=== PATIENT | female | born 1975 | race Caucasian/White ===

== ENCOUNTER 2023-06-15 10:46 | Outpatient (OUT) | payer OTHER, SELFPAY ==
--- NOTE | 2023-06-15 10:48 | VEIN_ITS ---
Patient: EB MÉNDEZ Exam Date: 06/15/2023 : 1975 Gender:F Ordering : DR BECKY TORRES M.D. Admission #: [id number] Family : Order #: [id number] CLICK HERE TO VIEW EXAM RADIOLOGY REPORT PROCEDURE: VC EXT VENOUS REFLUX HALEY LMTD COMPARISON: None. INDICATIONS: I83.813 Painful varicose veins of bilat lower extremities TECHNIQUE: Duplex imaging of the lower extremity to assess the deep and superficial venous system for the presence of deep or superficial venous incompetence and to document the location and severity of disease. The study includes evaluation of the great saphenous vein (GSV), anterior accessory saphenous vein (AASV) and small saphenous vein (SSV). Patient scanned in reverse Trendelenburg and standing. FINDINGS: RIGHT LOWER EXTREMITY: Saphenofemoral Junction Reflux: Yes 10.5mm 1.3 sec GSV: Diam (mm) Reflux/ Time (sec) Proximal Thigh 8.2 Yes 0.9 Mid Thigh 5.8 Yes 1.0 Distal Thigh 4.8 Yes 1.7 Prox Calf 4.6 Yes 1.3 Mid Calf 4.9 Yes 1.7 Saphenopopliteal Junction Reflux: 2.5mm Yes 0.3 SSV: Proximal Calf 3.3 Yes 0.3 Mid Calf 3.7 Yes 4.8 AASV: Not present Proximal Thigh Mid Thigh Distal Thigh Thrombi: No acute or chronic thrombus. Compressibility: Normal. Flow: Severe deep venous reflux. Preforator: Distal medial lower leg 5.4 mm with 3.7s reflux. Prox medial calf 5.0 mm with 1.3s reflux. Tech Note: Incompetent varicose vein mid medial lower leg measures 4.4 mm with 0.7s reflux. Mid medial thigh varicosity measures 4.1 mm with 3.3s reflux. Distal lateral thigh varicose vein measures 3.2 mm with 4.8s reflux. LEFT LOWER EXTREMITY: Saphenofemoral Junction Reflux: Yes 15.8 mm 4.2 sec GSV: Diam (mm) Reflux/Time (sec) Proximal Thigh 7.9 Yes 2.7 Mid Thigh 3.5 N/A Distal Thigh 2.7 N/A Prox Calf 2.5 Yes 1.9 Mid Calf 4.0 Yes 2.5 Saphenopopliteal Junction Relux: 3.8 mm Yes 0.3 SSV: Proximal Calf 4.9 Yes 0.3 Mid Calf 4.4 No AASV: Proximal Thigh 7.6 Yes 3.3 Mid Thigh 7.7 Yes 4.2 Distal Thigh Thrombi: Chronic thrombus in portions of previously treated GSV. Compressibility: Non compression of segments of GSV. Flow: Severe deep venous reflux. Communications Department Head: Distal medial lower leg 3.4mm with 1.1s reflux. Prox medial calf 3.5 mm with 1.7s reflux. Tech Note: AASV becomes tortuous approximately 5.3 cm from SFJ. Thigh extention of SSV. Mid medial thigh varicose vein measures 6.2 mm with 2.2s reflux. Varicose vein mid medial lower leg 3.8 mm with 1.9s reflux. Proximal anterior thigh varicose vein off AASV measures 5.1 mm with 0.8s reflux. CONCLUSION: 1. Abnormally dilated and incompetent right great saphenous vein, left great saphenous vein, left anterior accessory saphenous vein, multiple branch saphenous varicosities bilaterally. Dictated by: Kyle Dick M.D. on 06/15/2023 at 11:49 Approved by: Kyle Dick M.D. on 06/15/2023 at 12:50
--- NOTE | 2023-06-15 10:48 | VEIN_ITS ---
Patient: EB MÉNDEZ Exam Date: 06/15/2023 : 1975 Gender:F Ordering : DR BECKY TORRES M.D. Admission #: [id number] Family : Order #: [id number] CLICK HERE TO VIEW EXAM RADIOLOGY REPORT PROCEDURE: [facility] EST COMPREHENSIVE VEIN CENTER - OFFICE VISIT INITIAL COMPARISON: None. PROGRESS NOTES: [age] year old female who presents with a new 1 year history of redevelopment of dilated bulging veins, leg swelling, and edema. The patient's leg symptoms are symmetric. There has been a progression of symptoms over the past 6 months. This increases with prolonged leg dependency. The patient describes an improvement with rest, elevation, exercise, support stockings , and medication. The patient denies any signs and symptoms to suggest arterial ischemia. The patient describes a family history varicose veins on maternal side. The patient has drinking and smoking history of no alcohol consumption or tobacco use. Patient has a past medical history significant for hypothyroidism and prior superficial vein treatment. The patient denies a history of deep venous thrombus or pulmonary embolus. See separate history and physical for medication list. Prior treatment for varicose or spider veins. Current use of compression stockings. After review of nurse notes, history and physical exam I discussed at length the pathophysiology of venous hypertension and possible treatments, therapies and strategies available. We discussed at length the importance of elevating the lower extremities above the level of the heart, increased physical activity and compression stocking use. Ultrasound venous reflux study performed today was discussed at length with the patient. The report demonstrates abnormally dilated and incompetent right great saphenous vein, segments of left great saphenous vein with occlusion of the vein in the mid and distal thigh, dilated incompetent left anterior accessory saphenous vein, and multiple incompetent branch saphenous varicosities bilaterally. PHYSICAL EXAM: The right leg demonstrates several varicosities, a few scattered spider veins, no ulceration, mild edema, no skin discoloration. The left leg demonstrates several varicosities, a few scattered spider veins, no ulceration, mild edema, no skin discoloration. Both thighs, legs and feet were symmetrically warm to the touch. Good posterior tibial and dorsalis pedis pulses were present bilaterally. VEIN/VC Facility EST Comprehensive IMPRESSION: 1. Bilateral lower extremity venous insufficiency 2. Bilateral lower extremity varicose veins 3. Mild bilateral lower extremity subcutaneous edema 4. No flow significant arterial disease 5. CEAP: C3, EC, , MO PLAN: 1. Continued use of compression stockings 2. Elevated legs and increased physical activity symptomatic relief 3. Endovenous laser ablation of right great saphenous vein, proximal left great saphenous vein (with microfoam chemical ablation of distal segments), and left anterior accessory saphenous vein. 4. Microfoam chemical ablation of distal aspect of left great saphenous vein and bilateral abnormally dilated and incompetent branch saphenous varicosities. 5. Sclerotherapy as needed. Nurse notes, history and physical were reviewed and confirmed, see attached forms. The nurse was present throughout the physical exam and consultation Dictated by: Kyle Dick M.D. on 06/15/2023 at 12:50 Approved by: Kyle Dick M.D. on 06/15/2023 at 12:58
== END 2023-06-15 10:47 | disposition home or self-care (01) ==
LOC: VC 10:46
PROVIDERS: PCP Radiology Diagnostic Radiology; Visit Provider Radiology Diagnostic Radiology
DX: I83.813 Varicose veins of bilateral lower extremities with pain (principal)
CPT/HCPCS: 93970; G0463

== ENCOUNTER 2023-07-21 10:38 | Outpatient (OUT) | payer OTHER, SELFPAY ==
--- NOTE | 2023-07-21 10:39 | VEIN_ITS ---
[address] [address] Patient Name: EB MÉNDEZ MRN: [id number] date: 1975 Sex: F Assigned Patient Location: Current Patient Location: Accession/Order Number: [id number] Exam Date: 07/21/2023 10:40 Report Date: 07/21/2023 11:53 At the request of: BECKY TORRES Procedure: VC Endovenous Ablation 1VeinRT EXAMINATION: VC Endovenous Ablation 1VeinRT HISTORY: I83.813 Painful varicose veins of bilat lower extremities COMPARISON: No relevant comparison available. TECHNIQUE: The risks and benefits of the procedure had been previously discussed, and were rediscussed at length. Informed written consent was obtained. Christine Austin and Kade White assisted. Time out procedure was performed. The right lower extremity was prepared and draped in the usual sterile fashion to allow knee flexion in the sterile field. Duplex ultrasound probe was draped in a sterile cover, sterile transmission gel was used. Venous mapping was performed with the areas of dilation and large tributaries marked. The total length was 40 cm from the entry mid calf to 3 cm below the saphenofemoral junction. The diameter of the greater saphenous vein ranged from 4-8 mm. A 30 gauge needle and 1% buffered lidocaine was used to anesthetize the entry site. A 4 mm incision was made with a scalpel and the saphenous vein was entered percutaneously under direct ultrasound guidance with a micropuncture set, a single stick was successful in gaining access. A micro-guide wire was inserted and the needle removed. A micro-set including a dilator was inserted over the microwire and the needle and dilator were removed. A 0.018 guide wire was inserted through the micro-set and threaded through the saphenous vein to the saphenofemoral junction. The dilator was removed and an introducer sheath was inserted over the wire until the end of the sheath entered the saphenofemoral junction. The dilator and wire were removed and the 600 micron fiber was introduced and placed and positioned so that it extended beyond the sheath and was 3 cm peripheral to the saphenofemoral femoral junction. Final position of the fiber was determined by ultrasound guidance and duplex imaging. Tumescent anesthetic was delivered by ultrasound guidance. 250 cc of fluid was delivered along the entire course of the saphenous vein. The solution consisted of 1000 cc of normal saline with 40 mL of 1% lidocaine and 20 mL of sodium bicarbonate. A final positioning check was made. The energy source was turned on by means of the foot pedal and the fiber and sheath were withdrawn. The total number of Joules delivered was 1991. The laser was active for 249seconds under continuous pulse, average laser use of 8 J. Laser start time 11:27 AM 07/21/23. Laser stop time 11:32 AM 07/21/23. A duplex ultrasound revealed compressibility and flow at the saphenofemoral junction immediately after the procedure. Hemostasis at the access site was achieved. The skin incision of the saphenous vein was closed with a 4 x 4. A compression stocking was applied. Postop instructions were given. A follow up appointment was recommended and scheduled. The patient tolerated the procedure well and was discharged in good condition . VEIN/VC Endovenous Ablation 1VeinRT IMPRESSION: Technically successful endovenous laser ablation of the right great saphenous vein Electronically authenticated by: BECKY TORRES Date: 07/21/2023 11:53
[2023-07-21] MEDS: LIDOCAINE HCL 1% 100 MG/10 ML MDV INJ (11:08)
[2023-07-21] MEDS: 0.9 % SODIUM CHLORIDE 500 ML, LIDOCAINE HCL 20 ML, SODIUM BICARBONATE 10 MEQ INJ (11:09)
== END 2023-07-21 10:39 | disposition home or self-care (01) ==
LOC: VC 10:38
PROVIDERS: PCP Radiology Diagnostic Radiology; Visit Provider Radiology Diagnostic Radiology
DX: I83.813 Varicose veins of bilateral lower extremities with pain (principal)
CPT/HCPCS: 36478

== ENCOUNTER 2023-07-27 14:33 | Outpatient (OUT) | payer OTHER, SELFPAY ==
--- NOTE | 2023-07-27 14:34 | VEIN_ITS ---
Patient: BE MÉNDEZ Exam Date: 07/27/2023 : 1975 Gender:F Ordering : DR JOHN DIALLO M.D. Admission #: [id number] Family : Order #: [id number] CLICK HERE TO VIEW EXAM RADIOLOGY REPORT PROCEDURE: VC FACILITY EST LMTD VEIN CENTER - OFFICE VISIT FOLLOW UP COMPARISON: None. PROGRESS NOTES: The patient reports moderate pain following endovenous laser ablation of the right great saphenous vein. The patient has worn his compression stockings . She does report significant pain of the right leg following the procedure. The patient has followed our recommendations to walk 20-30 minutes once or twice per day since the procedure. Physical exam demonstrates 5 areas of bruising in the medial right leg related to tumescent injection. Mild warmth is demonstrated in the anterior and medial right thigh consistent with thrombophlebitis likely related to occlusion of the treated great saphenous vein and near occlusion of associated varicose vein which originates at the saphenofemoral junction. Review of the ultrasound performed the same day demonstrates occlusive thrombus extending throughout the treated right great saphenous vein with heat induced thrombus 0.8 cm in the saphenofemoral junction. Nonocclusive thrombus identified in associated varicose vein. I did discuss with the patient that she had postprocedure thrombophlebitis and recommended Advil or Tylenol to control the inflammatory process. The patient expressed a desire to proceed with treatment of the left great saphenous vein with intravenous laser ablation. VEIN/VC Facility EST LMTD IMPRESSION: 1. Successful ablation of the treated right great saphenous vein as well as an associated varicose vein. 2. Postprocedural thrombophlebitis. PLAN: Advil 400 milligrams 3 times a day for 5-7 days Intravenous laser ablation left great saphenous vein Nurse notes, history and physical were reviewed and confirmed, see attached forms. The nurse was present throughout the physical exam and consultation Dictated by: John Diallo MD on 07/27/2023 at 15:34 Approved by: John Diallo MD on 07/27/2023 at 15:47
--- NOTE | 2023-07-27 14:34 | VEIN_ITS ---
Patient: EB MÉNDEZ Exam Date: 07/27/2023 : 1975 Gender:F Ordering : DR JOHN DIALLO M.D. Admission #: [id number] Family : Order #: [id number] CLICK HERE TO VIEW EXAM RADIOLOGY REPORT PROCEDURE: VC EXT VENOUS RT LMTD COMPARISON: None. INDICATIONS: Phlebitis and thrombophlebitis of Rt lower ext I80.01 TECHNIQUE: Lower extremity phelps scale and Duplex Doppler evaluation of the deep venous system from the inguinal ligament through the calf veins. FINDINGS: REGION: Right lower extremity. THROMBI: Negative for DVT. Echogenic thrombus visualized 0.8 cm from the saphenofemoral junction and is seen throughout the great saphenous vein to proximal lower leg at point of insertion COMPRESSIBILITY: Non-compressible segments corresponding to thrombus FLOW: Areas of no flow corresponding to thrombus OTHER: Varicose vein, seen in area of pain, contains thrombus corresponding with treatment. CONCLUSION: Post ablation occlusion of the right great saphenous vein with heat induced thrombus 0.8 cm from the saphenofemoral junction Nonocclusive thrombus identified in associated varicose vein arising off the saphenofemoral junction Dictated by: John Diallo MD on 07/27/2023 at 15:06 Approved by: John Diallo MD on 07/27/2023 at 15:09
== END 2023-07-27 14:34 | disposition home or self-care (01) ==
LOC: VC 14:33
PROVIDERS: PCP Radiology Diagnostic Radiology; Visit Provider Radiology Diagnostic Radiology
DX: I80.01 Phlebitis and thrombophlebitis of superficial vessels of right lower extremity (principal)
CPT/HCPCS: 93971; G0463

== ENCOUNTER 2023-08-04 10:56 | Outpatient (OUT) | payer OTHER, SELFPAY ==
--- NOTE | 2023-08-04 10:57 | VEIN_ITS ---
[address] [address] Patient Name: EB MÉNDEZ MRN: [id number] date: 1975 Sex: F Assigned Patient Location: Current Patient Location: Accession/Order Number: [id number] Exam Date: 08/04/2023 11:00 Report Date: 08/04/2023 12:32 At the request of: BECKY TORRES Procedure: VC Endovenous Ablation 1VeinLT EXAMINATION: VC Endovenous Ablation 1VeinLT HISTORY: Pain due to varicose veins of bilateral legs I83.813 The risks and benefits of the procedure had been previously discussed, and were rediscussed at length. Informed written consent was obtained. Claire Navas RN and Soha Austin RDMS, RVT assisted. Time out procedure was performed. The left lower extremity was prepared and draped in the usual sterile fashion to allow knee flexion in the sterile field. Duplex ultrasound probe was draped in a sterile cover, sterile transmission gel was used. Venous mapping was performed with the areas of dilation and large tributaries marked. The total length was 8 cm from the entry proximal thigh to 3 cm below the Saphenofemoral junction. The diameter of the left great saphenous vein ranged from 7.9 mm. A 30 gauge needle and 1% buffered lidocaine was used to anesthetize the entry site. A 4 mm incision was made with a scalpel and the saphenous vein was entered percutaneously under direct ultrasound guidance with a micropuncture set, a single stick was successful in gaining access. A micro-guide wire was inserted and the needle removed. A micro-set including a dilator was inserted over the microwire and the needle and dilator were removed. A guide wire was inserted through the micro-set and guided through the saphenous vein to the saphenofemoral junction. The dilator was removed and an introducer sheath was inserted over the wire until the end of the sheath entered the saphenofemoral junction. The dilator and wire were removed and the 600 micron fiber was introduced and placed and positioned so that it extended beyond the sheath and was 3 cm distal to the saphenofemoral or saphenopopliteal junction. Final position of the fiber was determined by ultrasound guidance and duplex imaging. Tumescent anesthetic was delivered by ultrasound guidance. 50 cc of fluid was delivered along the entire course of the saphenous vein. The solution consisted of 1000 cc of normal saline with 40 mL of 1% lidocaine and 20 mL of sodium bicarbonate. A final positioning check was made. The energy source was turned on by means of the foot pedal and the fiber and sheath were withdrawn. The total number of Joules delivered was 471. The laser was active for 59 seconds under continuous pulse, average laser use of 8 J. Laser start time 11:46 AM, 08/04/2023. Laser stop time 11:47 AM, 08/04/2023. A duplex ultrasound revealed compressibility and flow at the saphenofemoral junction immediately after the procedure. Hemostasis at the access site was achieved. The skin incision of the saphenous vein was closed with a 4 x 4. A compression stocking was applied. Postop instructions were given. A follow up appointment was recommended and scheduled. The patient tolerated the procedure well. Electronically authenticated by: HANNAH HOSKINS Date: 08/04/2023 12:32
[2023-08-04] MEDS: LIDOCAINE HCL 1% 100 MG/10 ML MDV INJ (11:27)
[2023-08-04] MEDS: 0.9 % SODIUM CHLORIDE 500 ML, LIDOCAINE HCL 20 ML, SODIUM BICARBONATE 10 MEQ INJ (11:30)
== END 2023-08-04 10:57 | disposition home or self-care (01) ==
LOC: VC 10:56
PROVIDERS: PCP Radiology Diagnostic Radiology; Visit Provider Radiology Diagnostic Radiology
DX: I83.813 Varicose veins of bilateral lower extremities with pain (principal)
CPT/HCPCS: 36478

== ENCOUNTER 2023-08-11 11:31 | Outpatient (OUT) | payer OTHER, SELFPAY ==
--- NOTE | 2023-08-11 11:33 | VEIN_ITS ---
Patient Name: EB MÉNDEZ MR#: [id number] : 1975 Exam Date: 08/11/2023 Ordering Doctor: DR BECKY TORRES M.D. RADIOLOGY REPORT PROCEDURE: [facility] EST L[facility] VEIN CENTER - OFFICE VISIT FOLLOW UP [facility] PROGRESS NOTES: The patient reports improvement in leg symptoms. There has been interval reduction in varicosities. The patient has followed our recommendations to walk 20-30 minutes once or twice per day since the procedure. Physical exam demonstrates decrease in varicosities of the leg. Persistent varicosities are identified along the legs. Review of the ultrasound performed the same day demonstrates occlusive thrombus extending throughout the treated vein(s), see separate report, consistent with a successful ablation. No thrombus extending into or beyond the saphenofemoral junction. The patient expressed a desire to proceed with treatment of lower extremity superficial varicosities. The patient was informed that treatment was a process and would require several procedures/sessions. [facility]: 1. Successful ablation of the left great saphenous vein(s). 2. Persistent incompetent varicose veins and lower extremity symptoms. PLAN: Endovenous laser ablation of left anterior accessory saphenous vein. Nurse notes, history and physical were reviewed and confirmed, see attached forms. The nurse was present throughout the physical exam and consultation Dictated by: Kyle Dick M.D. on 08/11/2023 at 13:03 Approved by: Kyle Dick M.D. on 08/11/2023 at 13:22
--- NOTE | 2023-08-11 11:33 | VEIN_ITS ---
Patient Name: EB MÉNDEZ MR#: [id number] : 1975 Exam Date: 08/11/2023 Ordering Doctor: DR BECKY TORRES M.D. RADIOLOGY REPORT PROCEDURE: VC EXT VENOUS LT LIMITED COMPARISON: None. INDICATIONS: Phlebitis of superficial vein of lt lower extremity I80.02 TECHNIQUE: Lower extremity phelps scale and Duplex Doppler evaluation of the deep venous system from the inguinal ligament through the calf veins. FINDINGS: REGION: Left lower extremity. THROMBI: Negative for DVT. Heat induced thrombus visualized 1.3cm from the SFJ. The heat induced thrombus extends from groin to proximal thigh. COMPRESSIBILITY: Non-compressible segments corresponding to thrombus FLOW: Areas of no flow corresponding to thrombus OTHER: CONCLUSION: 1. Successful post ablation occlusion of left great saphenous vein. Dictated by: Kyle Dick M.D. on 08/11/2023 at 13:01 Approved by: Kyle Dick M.D. on 08/11/2023 at 13:03
== END 2023-08-11 11:32 | disposition home or self-care (01) ==
LOC: VC 11:32
PROVIDERS: PCP Radiology Diagnostic Radiology; Visit Provider Radiology Diagnostic Radiology
DX: I80.02 Phlebitis and thrombophlebitis of superficial vessels of left lower extremity (principal)
CPT/HCPCS: 93971; G0463

== ENCOUNTER 2023-08-17 10:19 | Outpatient (OUT) | payer OTHER, SELFPAY ==
--- NOTE | 2023-08-17 10:31 | VEIN_ITS ---
[address] [address] Patient Name: EB MÉNDEZ MRN: [id number] date: 1975 Sex: F Assigned Patient Location: Current Patient Location: Accession/Order Number: [id number] Exam Date: 08/17/2023 10:44 Report Date: 08/17/2023 12:12 At the request of: BECKY TORRES Procedure: VC Endovenous Ablation 1VeinLT EXAMINATION: VC Endovenous Ablation 1VeinLT HISTORY: I83.813 Painful varicose veins of bilat lower extremities The risks and benefits of the procedure had been previously discussed, and were rediscussed at length. Informed written consent was obtained. Kade White RN and Soha Austin RDMS, RVT assisted. Time out procedure was performed. The left lower extremity was prepared and draped in the usual sterile fashion to allow knee flexion in the sterile field. Duplex ultrasound probe was draped in a sterile cover, sterile transmission gel was used. Venous mapping was performed with the areas of dilation and large tributaries marked. The total length was 7 cm from the entry mid-upper thigh to 3 cm below the Saphenofemoral junction. The diameter of the left anterior accessory saphenous vein ranged from 7.7 mm. A 30 gauge needle and 1% buffered lidocaine was used to anesthetize the entry site. A 4 mm incision was made with a scalpel and the saphenous vein was entered percutaneously under direct ultrasound guidance with a micropuncture set, a single stick was successful in gaining access. A micro-guide wire was inserted and the needle removed. A micro-set including a dilator was inserted over the microwire and the needle and dilator were removed. A guide wire was inserted through the micro-set and guided through the saphenous vein to the saphenofemoral junction. The dilator was removed and an introducer sheath was inserted over the wire but could not enter the vessel due to marked spasming in closing down of the vessel. Access could not be gained over the next 20 minutes so the apparatus was removed and a new site just cephalad to the original site was localized with buffered lidocaine for local anesthesia. Access was gained with the needle and guidewire, but the dilator could not be advanced into the vessel due to repeat vessel spasm. Access could not be gained over the next 20 minutes due to persistent vessel spasm. The procedure was aborted. The skin incision of the saphenous vein was closed with a 4 x 4. A compression stocking was applied. Postop instructions were given. A follow up appointment was recommended and scheduled. The patient tolerated the procedure well. Electronically authenticated by: HANNAH HOSKINS Date: 08/17/2023 12:12
[2023-08-17] MEDS: LIDOCAINE HCL 1% 100 MG/10 ML MDV INJ (11:00)
[2023-08-17] MEDS: 0.9 % SODIUM CHLORIDE 500 ML, LIDOCAINE HCL 20 ML, SODIUM BICARBONATE 10 MEQ INJ (11:01)
== END 2023-08-17 10:20 | disposition home or self-care (01) ==
LOC: VC 10:30
PROVIDERS: PCP Radiology Diagnostic Radiology; Visit Provider Radiology Diagnostic Radiology
DX: I83.813 Varicose veins of bilateral lower extremities with pain (principal)
CPT/HCPCS: 36478

== ENCOUNTER 2023-08-24 11:06 | Outpatient (OUT) | payer OTHER, SELFPAY ==
--- NOTE | 2023-08-24 11:07 | VEIN_ITS ---
Patient Name: EB MÉNDEZ MR#: [id number] : 1975 Exam Date: 08/24/2023 Ordering Doctor: DR BECKY TORRES M.D. RADIOLOGY REPORT PROCEDURE: [facility] EST LMTD VEIN CENTER - OFFICE VISIT FOLLOW UP [facility] PROGRESS NOTES: The patient reports tenderness within proximal left thigh and region of anterior accessory saphenous vein and area of prior procedure. The patient has followed our recommendations to walk 20-30 minutes once or twice per day since the procedure. Physical exam demonstrates no evidence of infection or erythema. Persistent varicosities are identified along the legs bilaterally. Review of the ultrasound performed the same day demonstrates small amount of thrombus within proximal left anterior accessory saphenous vein; see separate report. No thrombus extending into or beyond the saphenofemoral junction. The patient expressed a desire to proceed with treatment of remaining incompetent varicosities. The patient was informed that treatment was a process and would require approximately 2 procedures/sessions. VEIN/[facility] EST LMTD IMPRESSION: 1. Incomplete ablation of the left anterior accessory saphenous vein. 2. Persistent branch saphenous veins and mild lower extremity symptoms. PLAN: 1. Microfoam chemical ablation of right leg branch saphenous varicosities. 2. Microfoam chemical ablation of left branch saphenous varicosities, and left anterior accessory saphenous vein if it does not continue to completely thrombose on its own. Nurse notes, history and physical were reviewed and confirmed, see attached forms. The nurse was present throughout the physical exam and consultation Dictated by: Kyle Dick M.D. on 08/24/2023 at 12:08 Approved by: Kyle Dick M.D. on 08/24/2023 at 12:13
--- NOTE | 2023-08-24 11:08 | VEIN_ITS ---
Patient Name: EB MÉNDEZ MR#: [id number] : 1975 Exam Date: 08/24/2023 Ordering Doctor: DR BECKY TORRES M.D. RADIOLOGY REPORT PROCEDURE: VC EXT VENOUS LT LIMITED COMPARISON: VC EXT VENOUS LT LIMITED, 08/11/2023. INDICATIONS: I80.02 Phlebitis of superficial veins of lt lower extremity TECHNIQUE: Lower extremity phelps scale and Duplex Doppler evaluation of the deep venous system from the inguinal ligament through the calf veins. FINDINGS: REGION: Left lower extremity. THROMBI: Negative for DVT. Partial compression visualized at prox AASV. COMPRESSIBILITY: Non-compressible segments corresponding to thrombus FLOW: Areas of no flow corresponding to thrombus OTHER: CONCLUSION: 1. Partial thrombosis of left anterior accessory saphenous vein. Dictated by: Kyle Dick M.D. on 08/24/2023 at 12:05 Approved by: Kyle Dick M.D. on 08/24/2023 at 12:08
== END 2023-08-24 11:07 | disposition home or self-care (01) ==
LOC: VC 11:07
PROVIDERS: PCP Radiology Diagnostic Radiology; Visit Provider Radiology Diagnostic Radiology
DX: I80.02 Phlebitis and thrombophlebitis of superficial vessels of left lower extremity (principal)
CPT/HCPCS: 93971; G0463

== ENCOUNTER 2023-10-06 10:51 | Outpatient (OUT) | payer OTHER, SELFPAY ==
--- NOTE | 2023-10-06 10:52 | VEIN_ITS ---
Patient Name: EB MÉNDEZ MR#: [id number] : 1975 Exam Date: 10/06/2023 Ordering Doctor: DR BECKY DIALLO M.D. RADIOLOGY REPORT PROCEDURE: VC EXT VENOUS HALEY LIMITED COMPARISON: None. INDICATIONS: I80.03 Phlebitis of superficial veins of haley lower extremies TECHNIQUE: Lower extremity phelps scale and Duplex Doppler evaluation of the deep venous system from the inguinal ligament through the calf veins. FINDINGS: REGION: Right lower extremity. THROMBI: None. Patent varicose vein remaining dist/med GSV 4.7mm with 1.2s reflux. Patent varicose vein mid/med calf 4.1mm with 0.9s reflux. Patent varicose vein prox/med calf 4.7mm with 0.8s reflux. Patent varicose vein mid/med thigh 3.9mm with 0.9s reflux. COMPRESSIBILITY: Normal compressibility. OTHER: Negative. REGION: Left lower extremity. THROMBI: None. Patent varicose vein distal GSV 4.7mm with 0.8s reflux. Patent varicose vein mid/med calf 4.5mm with 0.8s reflux. Patent varicose vein mid/med thigh 4.8mm with 0.7s reflux. COMPRESSIBILITY: Normal compressibility. OTHER: Negative. *Exam performed in accordance with [facility] practice guidelines- Peripheral venous ultrasound, December 15, 2009. CONCLUSION: Bilateral patent incompetent varicose veins measuring up to 4.7 mm on the right and 4.8 mm in the left Dictated by: Becky Diallo MD on 10/06/2023 at 11:41 Approved by: Becky Diallo MD on 10/06/2023 at 11:42
--- NOTE | 2023-10-06 10:52 | VEIN_ITS ---
Patient Name: EB MÉNDEZ MR#: [id number] : 1975 Exam Date: 10/06/2023 Ordering Doctor: DR JOHN DIALLO M.D. RADIOLOGY REPORT PROCEDURE: [facility] EST L[facility]D [facility] - OFFICE VISIT FOLLOW UP COMPARISON: [facility] EST LMTD, 08/24/2023. [facility] EST TD, 08/11/2023. PROGRESS NOTES: The patient reports continued bilateral leg pain and swelling most significant along the anterior thighs. The patient has worn her compression stockings as directed after her prior treatments. The patient has exercised daily. The patient does get some mild relief with rest, leg elevation and over the counter oral analgesics. Patient's symptoms are exacerbated by prolonged sitting and standing Physical exam demonstrates multiple patent dilated varicose veins bilateral anterior thigh, left greater than right. Review of the ultrasound performed the same day demonstrates multiple bilateral incompetent varicose veins measuring up to 4.7 mm in the right and 4.8 mm on the left. The patient expressed a desire to proceed with treatment of incompetent varicose veins with micro foam chemical ablation. VEIN/[facility] EST LMTD IMPRESSION: 1. Bilateral incompetent varicose veins PLAN: Micro foam chemical ablation bilateral incompetent varicose vein Nurse notes, history and physical were reviewed and confirmed, see attached forms. The nurse was present throughout the physical exam and consultation Dictated by: John Diallo MD on 10/06/2023 at 12:01 Approved by: John Diallo MD on 10/06/2023 at 12:11
--- OUTSIDE RECORDS SUMMARY | 2023-10-06 11:11 | XMS_ITS | CCD ---
Author Name Unknown Address [address] [place] [id number] Organization [facility] Care Team Providers Care Compliance Specialist Name Role Phone MAEVE CARDENAS Unavailable Unavailable BHAVIK GONZALEZ Unavailable Unavailable BRIAN, DR BECKY Adams Admitting Unavailable WEST, DR BECKY Adams Consulting Unavailable WEST, DR BECKY Adams Attending Unavailable ZIEBER, DR HANNAH Muhammad Consulting Unavailable WEST, DR BECKY Adams Admitting Unavailable WEST, DR BECKY Adams Consulting Unavailable WEST, DR BECKY Adams Attending Unavailable ZIEBER, DR HANNAH Muhammad Consulting Unavailable WEST, DR BECKY Adams Consulting Unavailable WEST, DR BECKY Adams Attending Unavailable WEST, DR BECKY Adams Admitting Unavailable ZIEBER, DR HANNAH Muhammad Consulting Unavailable WEST, DR BECKY Adams Admitting Unavailable ZIEBER, DR HANNAH Muhammad Consulting Unavailable WEST, DR BECKY Adams Attending Unavailable WEST, DR BECKY Adams Admitting Unavailable WEST, DR BECKY Adams Attending Unavailable WEST, DR BECKY Adams Consulting Unavailable WEST, DR BECKY Adams Admitting Unavailable WEST, DR BECKY Adams Attending Unavailable ZIEBER, DR HANNAH Muhammad Consulting Unavailable WEST, DR BECKY Adams Admitting Unavailable WEST, DR BECKY Adams Consulting Unavailable WEST, DR BECKY Adams Attending Unavailable ZIEBER, DR HANNAH Muhammad Consulting Unavailable WEST, DR BECKY Adams Admitting Unavailable WEST, DR BECKY Adams Attending Unavailable WEST, DR BECKY Adams Consulting Unavailable WEST, DR BECKY Adams Admitting Unavailable WEST, DR BECKY Adams Consulting Unavailable WEST, DR BECKY Adams Attending Unavailable ZIEBER, DR HANNAH Muhammad Consulting Unavailable WEST, DR BECKY Adams Admitting Unavailable WEST, DR BECKY Adams Attending Unavailable WEST, DR BECKY Adams Consulting Unavailable WEST, DR BECKY Adams Admitting Unavailable WEST, DR BECKY Adams Consulting Unavailable WEST, DR BECKY Adams Attending Unavailable WEST, DR BECKY Adams Admitting Unavailable WEST, DR BECKY Adams Consulting Unavailable WEST, DR BECKY Adams Attending Unavailable ZIEBER, DR HANNAH Muhammad Consulting Unavailable WEST, DR BECKY Adams Admitting Unavailable WEST, DR BECKY Adams Consulting Unavailable WEST, DR BECKY Adams Attending Unavailable WEST, DR BECKY Adams Consulting Unavailable WEST, DR BECKY Adams Attending Unavailable WEST, DR BECKY V Admitting Unavailable Cooper Hardwick Unavailable MD Kwame Noel Attending Provider MD Mic Bowen Primary Care Provider [phone] Kwame Noel Unavailable Asaad, Imad Unavailable MD Mic Bowen Primary Care Provider [phone] MD Suzan Imsanthosh Attending Provider MIC BOWEN. Admitting Unavailable MIC BOWEN. Primary Care Unavailable MIC BOWEN. Attending Unavailable MIC BOWEN. Primary Care Unavailable MIC BOWEN. Admitting Unavailable MIC BOWEN. Attending Unavailable MIC BOWEN. Admitting Unavailable MIC BOWEN. Primary Care Unavailable MIC BOWEN. Attending Unavailable MIC BOWEN. Admitting Unavailable MIC BOWEN. Primary Care Unavailable MIC BOWEN. Attending Unavailable MIC BOWEN Attending Unavailable Mic Bowen Primary Care Unavailable Asaad, Imad Admitting Unavailable Asaad, Imad Attending Unavailable Mic Bowen Primary Care Unavailable Asaad, Imad Admitting Unavailable Asaad, Imad Attending Unavailable Allergies Allergy Classification Reported Allergen(s) Allergy Type Date of Onset Reaction(s) Facility (1 source) Gluten; Translations: [Glutens] Propensity to adverse reactions to food (disorder) [facility] (1 source) No Known Medication Allergies; Translations: [No Known Medication Allergies] Propensity to adverse reactions to drug (disorder) [facility] Medications Current Medications Medication Drug Class(es) Dates Sig (Normalized) Sig (Original) cholecalciferol 0.125 mg oral tablet (10 sources) Vitamin D Start: 08-18-2022 take 1 tablet by mouth once daily Cholecalciferol (Vitamin D3) (Vitamin D3) 125 mcg (5,000 unit) Tablet Active 51453 UNIT PO Daily August 18, 2022 12:00am take 2 capsules by m outh every twenty-four hours Vitamin D3 1.25 MG (79925 UT) 2 capsules Orally Daily Active ciprofloxacin 3 mg/ml ophthalmic solution (1 source) Quinolone Antimicrobial Start: 12-30-2022 Ciprofloxacin HCl 0.3 % 1 drop into affected eye Ophthalmic Every 2 hours while awake days 1-2, then every 4 hours while awake days 3-7 for 7 days Dec, Active esomeprazole 40 mg delayed release oral capsule (1 source) Proton Pump Inhibitor Start: 09-07-2023 take 1 capsule by mouth every twenty-four hours NexIUM 40 MG 1 capsule Orally Once a day for 30 days *STOP OMEPRAZOLE 40 MG DAILY DUE TO SIDE EFFECTS. SWITCH TO NEXIUM 40 MG DAILY Aug, Active levothyroxine sodium 0.05 mg oral tablet (3 sources) l-Thyroxine Start: 08-18-2022 take 25 ug by mouth twice daily Levothyroxine Active 25 MCG PO Twice daily August 18, 2022 12:00am Start: 08-18-2022 take 25 ug by mouth once daily Levothyroxine Active 25 MCG PO Daily August 18, 2022 12:00am Magnesium (7 sources) take 1 capsule by mouth once daily Magnesium 300 MG 1 capsule with a meal Orally Once a day for 30 day(s) Active Multivitamin preparation (3 sources) Start: 08-18-2022 take 1 tablet by mouth once daily Multivitamin Active 1 TAB PO Daily August 18, 2022 12:00am Thyroid (Pork) ([place] Thyroid) 60 mg Tablet (1 source) Start: 11-16-2017 take 1 tablet by mouth twice daily Thyroid (Pork) ([place] Thyroid) 60 mg Tablet Active 60 MG PO Twice daily November 16, 2017 12:00am thyroid (skilled nursing) 60 mg oral tablet (9 sources) Start: 11-16-2017 take 1 tablet by mouth twice daily Thyroid (Pork) ([place] Thyroid) 60 mg Tablet Active 60 MG PO Twice daily November 16, 2017 12:00am Completed/Discontinued Medications Medication Drug Class(es) Dates Sig (Normalized) Sig (Original) acetaminophen 325 mg / HYDROcodone bitartrate 5 mg oral tablet (3 sources) Opioid Agonist Start: 11-19-2017 End: 08-18-2022 take 1 tablet by mouth every six hours Hydrocodone-Acetam inophen ([place]) 5-325 mg tablet Discontinued 1 - 2 TAB PO Q6H 12 March 1st, 2018 November 28th, 2022 7:38am ibuprofen 600 mg oral tablet (3 sources) Nonsteroidal Anti-inflammatory Drug Start: 11-19-2017 End: 08-18-2022 Ibuprofen Discontinued 600 MG PO Every 6 hours November 19, 2017 12:00am August 18, 2022 7:38am do not exceed 4 doses in a 24 hour period Multivit 78-Hoqt-Vgvtkg 1-Dha (Pnv-Dha) 27 mg iron-1 mg -300 mg Capsule (3 sources) Start: 11-16-2017 End: 08-18-2022 take 1 capsule by mouth once daily Multivit 29-Btbw-Kockpt 1-Dha (Pnv-Dha) 27 mg iron-1 mg -300 mg Capsule Discontinued 1 cap/day PO Daily November 16, 2017 12:00am August 18, 2022 7:39am Problems Active Problems Problem Classification Problem Date Documented Da te Episodic/Chronic Abdominal pain (9 sources) Left lower quadrant pain; Translations: [Left lower quadrant pain] Onset: 08-31-2023 Episodic Acute and chronic tonsillitis (7 sources) Amygdalolith; Translations: [Other chronic diseases of tonsils and adenoids] Chronic Inflammation; infection of eye (except that caused by tuberculosis or sexually transmitteddisease) (1 source) Unspecified acute conjunctivitis, right eye Episodic Other gastrointestinal disorders (3 sources) Constipation - functional; Translations: [Chronic idiopathic constipation] Chronic Other gastrointestinal disorders (1 source) Chronic idiopathic constipation Chronic Other gastrointestinal disorders (6 sources) Constipation; Translations: [Constipation, unspecified] Episodic Other gastrointestinal disorders (4 sources) Slow transit constipation; Translations: [Slow transit constipation] Episodic Other gastrointestinal disorders (1 source) Slow transit constipation Episodic Other gastrointestinal disorders (3 sources) Flatulence, eructation and gas pain; Translations: [Abdominal distension (gaseous)] Episodic Other gastrointestinal disorders (3 sources) Mucus in stool; Translations: [Other fecal abnormalities] Episodic Other gastrointestinal disorders (2 sources) Abdominal distension (gaseous); Translations: [Abdominal distension (gaseous)] Onset: 08-10-2023 Episodic Thyroid disorders (16 sources) Subclinical hypothyroidism; Translations: [Hypothyroidism, unspecified] Onset: 05-12-2022 Resolved: 05-12-2022 Chronic Past or Other Problems Problem Classification Problem Date Documented Da te Episodic/Chronic Phlebitis; thrombophlebitis and thromboembolism (8 sources) Phlebitis and thrombophlebitis of superficial vessels of left lower extremity; Translations: [Phlebitis and thrombophlebitis of superficial vessels of lower extremities, bilateral] Onset: 1 Episodic Varicose veins of lower extremity (4 sources) Varicose veins of bilateral lower extremities with pain; Translations: [VARICOSE VNS HALEY LOW EXTREM W/PAIN] Onset: 1 Episodic Results Test Name Value Interpretation Reference Range Facility HCG ( test) IA.iwona hester Ql (U)Ordered By: Debi Mares on 08-31-2023 HCG ( test) Ql (U) Negative [facility] HCG,Urineon 08-31-2023 Beta HCG ( test) Ql (U) Negative Normal [facility] Comment on above: Result Comment: PERF ORMED BY: [place] [address] PATHOLOGIST NYLON H[employer] W[employer] CUTTER RIZWANA NEGRO M.D. Performed By: #### U HCG #### [address] 08-31-2023 L ----- Specimen: [id number] Received: 08/31/23 Status: ENOC Paredes Num: [id number] Spec Type: Surgical Subm Dr: Debi Mares MD Tissues: A Duodenum - Biopsy (DUOD) B GASTRIC FOR HP (GASTRIC HP) Procedures: HE/4, Gross/Micro L4/2, H PYLORI Age/ Patient Sex Location Account Attending Physician Eb De La Torre 48/F [id number] Debi Mares MD SPEC NUM: [id number] RECD: 08/31/23 STATUS: ENOC PAREDES NUM: [id number] RICKY: 08/31/[address] [facility] [address]: Debi Mares MD ENTERED: 08/31/23 [facility] DR: DELMAR TYPE: Surgical DEPT: S ENTERED BY: [id number] RECV BY: [id number] ORDERED: HE/4, Gross/Micro L4/2, H PYLORI ORDERED: HE/4, Gross/Micro L4/2, H PYLORI Pathological Diagnosis A. Duodenal biopsy: - Small bowel mucosa with minor degrees of nonspecific chronic duodenitis, including focal mild nonspecific congestion and at least 1 fragment, otherwise without villous blunting, active erosion, or any abnormal or significant lymphocytic exocytosis identifiable, therefore also no any features of celiac sprue observed B. Gastric biopsy: - Oxyntic mucosa showing minor congestion and only occasional chronic inflammatory cells in lamina propria, otherwise without erosion, intestinal metaplasia, or any significant stromal chronic inflammation observed - H. pylori immunostain with appropriate control is also negative for identified Helicobacter organisms Clinical Information Epigastric pain, bloating, rule out celiac, rule out H. pylori Gross Description A. Received in formalin labeled with the patient's name, date of and duodenum biopsy are two mckinney tissues measuring 0.2 cm and 0.6 x 0.2 x 0.1 cm. Entirely submitted in one cassette labeled A1. Specimen: [id number] Received: 08/31/23 Status: ENOC Paredes Num: [id number] Spec Type: Surgical Subm Dr: Debi Mares MD Tissues: A Duodenum - Biopsy (DUOD) B GASTRIC FOR HP (GASTRIC HP) Procedures: HE/4, Gross/Micro L4/2, H PYLORI Patient: Eb De La Torre [id number] (Continued) Specimen: [id number] Received: 08/31/23 (Continued) Gross Description (Continued) Signed (signature on file) Christine Snyder MD 09/01/23 1731 Specimen: [id number] Received: 08/31/23 Status: ENOC Paredes Num: [id number] Spec Type: Surgical Subm Dr: Debi Mares MD Tissues: A Duodenum - Biopsy (DUOD) B GASTRIC FOR HP (GASTRIC HP) Procedures: HE/4, Gross/Micro L4/2, H PYLORI Patient: Eb De La Torre [id number] (Continued) Specimen: [id number] Received: 08/31/23 (Continued) Gross Description (Continued) B. Received in formalin labeled with the patient's name, date of and gastric biopsy is one mckinney tissue measuring 0.3 cm. Entirely submitted in one cassette labeled B1. Microscopic Description A. Two H E slides reviewed. The microscopic examination confirms the diagnosis. B. Two H E slides reviewed. The microscopic examination confirms the diagnosis. CPT Codes 33967d0, 95689 x 1 Specimen: [id number] Received: 08/31/23 Status: ENOC Paredes Num: [id number] Spec Type: Surgical Subm Dr: Debi Mares MD Tissues: A Duodenum - Biopsy (DUOD) B GASTRIC FOR HP (GASTRIC HP) Procedures: HE/4, Gross/Micro L4/2, H PYLORI Patient: Eb De La Torre [id number] (Continued) Signed (signature on file) Christine Snyder MD 09/01/23 9464 [facility] Reverse T3 LCon 08-12-2023 Reverse T3 LC 12.5 ng/dL Invalid Interpretation Code 9.2-24.1 [facility] Comment on above: Result Comment: This test was developed and its performance characteristics determined by [employer]. It has not been cleared or approved by the Food and Drug Administration. Performed At: [facility] [address] [id number] Michelet Barnes MD Ph:[phone] Performed By: #### 1 [id number] #### [facility] (DEFAULT) [address] [place] [address] US abdomen limitedon 023 US abdomen limited [facility] Main [place] [address] [place] [address] Ultrasound Report Signed Patient: Eb De La Torre MR#: [id number] [birth year] : 1975 Acct:[id number] Age/Sex: 48 / F ADM Date: 08/10/23 Loc: Room: Type: [facility] Attending Dr: Debi Mares MD Ordering Provider: Debi Mares MD Date of Service: 08/10/23 US/US abdomen limited: Bloating;Epigastric abdominal pain Copies to: Debi Mares MD LIMITED ABDOMINAL ULTRASOUND: CLINICAL HISTORY: Epigastric pain and bloating for several years COMPARISON: None TECHNIQUE: Grayscale and color Doppler images of the right upper quadrant organs were obtained. FINDINGS: Pancreas: Visualized portions appear unremarkable. Liver: Unremarkable. Gallbladder: Unremarkable. CBD: 3.5 mm US/US abdomen limited IMPRESSION: NO ACUTE PROCESS. . Impression dictated by: Jian Farley Jr., D.O.08/10/2023 12:44 PM Dictation Location: [place] [address] Tech: Brittney Otoole Transcribed By: TUCKER 08/10/23 1244 Dictated By: Jian Farley Jr, DO 08/10/23 1243 Signed By: 08/10/23 1244 [facility] Coding Summaryon 08-07-2023 [facility]oding [facility] KhwjlrrqKSk9lBm+PGhlYWQ+P D9ABGEbK88njGMnqW0eQ3USSM lOSywgQVBQTElOSyIgbmFtZT1 kaXNjZXJu IC8+CL0pYJRuLrlnaBUbb2M7s TQ8P46smk6nNIagpBY2EZDyUg Khfnbvo2arzMz2RDijKeazFlH t VEFdwX32YDX5eS74Fb07wYHyp YDix8eomKa7WuKgGZQlQFM9bJ ruIJmit9FgEKZyS13hhLEux4O 6 KQTajBgpdTYpIwAexFY1mD4hA Muqymfdw0xbzgvfUom7iy45jU Via5D8yOX3H5LzreQ7XTTdwEK g AbffvUJIoS8hvtgvx1hwfufcY uWjCUQeAPi7PWw5XSAngIvxYp MiZU05PGQ8QZVwfvSaC5ByLBI s yHstZmR9c8E9Nb0OS9BYSbsgQ 1VNTUFSWTwvdGQ+WY09gw39V8 GsKaybQnt9CBSuNOS3uDX7yH0 n FWMlKZdnh6S1iGJ8R6EtjpEbp d2tr8fjQEGaPCegS29dfJTka0 T5YYJizZO3MSUduEgrXeYjhR4 3 Oyc+ICCcaXeir4HcRvgsx3xoc 0awuTs8HtebDVBnphLsnTvwNO T1e3FxQs0lMHExxRO6oOC6tJ4 i TjBdDpC1SXtyY771MjYfhAZtW fdsP13rH0KnmJT+VWFuWjd1NY CytFebSW8fH2BhFBVhzbelnMK m gBhiWQ4kCYRvirasLYEhaU3fG IRzP0h6NmArSrJ0SMxjM1ClFY GantqkLn43kE3jEdWxFmA9PAc u P7QpzjR1EXEcbQKlGJseBFL8O 04cb7T8RTFrUKQiRLH4sSH9oW 1hbGlnbjogbGVmdDsgdmVydGl j PAkyFYkaP580FQTchQymDkFmU GluZyBEYXRlOiAgMTEvMTcvMj AyMzwvdGQ+LFQoKAW2iTypXYE n kPSsETezWs7lvCqlyOjmJN2cN IVytiijSVYabI9lGJYqtVHntD caVY2iBOUxmhbjw008HqCcENK 0 MGNluUTfQ2TaiW9aBtTxGORdU FQhK0RflRJlFObtY269RIowZw B5WZJwmeNaH1BvRQEizClfLjK 0 i9B3Pk3Th0CaydejB7OopFXpR zScBvjdHIy2L4WgMfwtgIY+PC 73VKOhHJ86ZUt0KQO1gVttDBv i XDGzJ1MbmB9fTxXhTRJqXDKrQ yc+PHRhYmxlIHdpZHRoPScxMD MdFrBzfXthGH5vJx7gGITySMP v cTyoxZMgTpEhe9psSYQyRDtnB K1oqJswZ1JiqLI7HMFhi0r8Wj 44E61rX4WwwYV+GBJwoOR1fEV 0 cG5aTrXgMsY9ZBiwM565ZpQci VBuZdpdg4uud2ufpRh6GnG5BT UlioVeeTsuXIK2b6BqPb99S81 s IHdpZHRoPSIxNSUiIHZhbGlnb f3miO8rXl5+PUFzhZG4yMK8vX 7iWeBeFmD6AGblV163AgWdsGY v Usead0kwc7oxgZc1YnArCYAgs uLjkXmvCAI0i9NqMi06V2DqtB jmv0EvPol2tb88fAIip9L1mCO 9 R5CyZLVfntuqfZBurOfsKN3wU IXiwyzhOXAeyX9rETIkZ3v3Nn PiVpH6LRmrJ8HwuqD7XFKacBE g JRBzqLJPjJ3bcdnca4khcduzT aSuPTXaPBq4MJo1GLHduUcfFy UvQBB3YvZ8ZNB7dANzmD8aiDj n lzvibW8pZwb+AQJ8fBYveHRCJ B5rGxyhcEX+POJfWQK2wLyfUE lrCFFeqG1vFDNsY3w7YaIxLfV 1 CBnvC2YwxtO1LTOgmPQwVQZzp QQWnZ6zygxlh2vizbwjWcCmPF RxHOr8EJc1ZGLgyWdvTiKqSVV 0 GdY3NSR0aQUofQ6ufQxktjavb G9wOyc+YloymWcdUVT2OZa5I8 JwBxi2DAQalYenAS3kkDOyMVd u Mt4gnDccfChmXE4yWTVfqojbq 268DxCdr9hcQMYgcYSiIRmoSQ V5C32ti5T9KUCyYMTcQWP0oMO 4 yY6omFhrryjrpOBlcZswytQjy XmaHKvjJHfuI749KWOdwWlaKc SpDOt9V7TkLjw2SKBupGpuCU5 n kBPbWZldEg3neFebmOojMW6zR XZzdxnko435ZqEcz7edAKUsoO GdVVruVRI0N67lc7V1MPSaHDW w CHJ4qYX0oO3whEbtikigcSMad HbkdqVaoXosFQzlRNioR321TS QvrDflRzSlmTh9I6HfIpe9XCF z vVzhAS1rxCVhDZytSg2duHkjc QolKU7nOYQjzivva277TnFde3 gvWWGrzMEjDCxuEMR9C75fe6F 6 HQGbANXeGKZ9nRH5jZ8vpSadw jogbGVmdDsgdmVydGljYWwtYW gmM579IGPuqJjlCdUnzVwwvpS g RLelWUy0X6HlMgqcqXH+PC90Y VKsHZ14sAHukOAub0otqIb5Qo EvRCYrIYP4qOxsEAtyn9FuVLS t Z35ztTIvi6Y0OUCprEuooLEeE aBkxKF5lM5wCYldjvdgc7ifll sbWjbfb8zeua38aV52F47qKNo p KFSvTORsJKAsHTGxfKhfik1rl G9wIi8+MCRrwYQ8kOT6aV5eZI AePbG1PQowZ009RaNpxCSxCmx j p6lps2jgyKn0LzV8PRZjgcRhi JraFTH3g8EvIi74X44gJQesNR JaXNHzHGRrDWTuuFklwm6orF9 w Ii8+GHSowUT3wHF0sV1lPuSpY yB9KOgsM484GtZqtJWuDobzH3 1aK7MbaUO+FWIuZka5HSUwpSz s AR0mxDLfRTvjEl3dXCI5MqCnF iDjORlrQ2JlPUCcyqznibngtL H0BIBcOHHioD41Fl7qpThuKYH w eCHKwH4zxbecl5iavncgLrFzG TYnIWw1UOs8TCCyfErgGyRiAN O9ElD7FSV8jVChsI3pkLlrkcv g yG0wK6ZuLAUsxpgrHo66jM0dU tEiAxF4MTiwEyc+TzFCLr2cGh APXHEiECxYU7mVBnUZEO11YV6 8 nCHel4Y2gOW9M8PhPYVzgldic zezrXY0TLKcRSWkhX44wVKoYD hyLl6ks5Z5l009TFUkQLJmbR2 7 Dd4trModNVKkuTUZcQ9fmldiq 9lgthzeHhMpQPWkUSg7MWp9XT MbkEwdQsYgBXX2ErK4OXP9uSA h aF3kvHuchsoxyJ6qQdb+MTAvM ANnWPx4JerecZV+SKRbSKU3lF gvOEemFNGppQ0nLKGdQ9d9ZqV w QzF2LVjeK7RwZYNwjifmQf41a Y9xCbVkCdZ2ZIjmC5AngbI0EQ XiaMMsBSayLDN3D79yn4X1UVH w CGEeXSP5mPI7zA0piWiaaelvw GVmdDsgdmVydGljYWwtYWxpZ2 44EVOvyDqmRyS1JYwyHAAfBN9 0 FH27yATvv2V3oVU0P6UtAOVfi gjuxlwfhPQ4BBWgXSAlsV63lI LfVPtfDk4we7S5a852QZAfSFL w tW23La6xyNbbJLApvDRKvM0nh dgdh7mfokkdYuIhRFZdLSp3HR f4TQYydTbuFtBoQNC8DmY1AQE 0 mLYixP9lbWmywfnvhH9xCuk+R yZWSPjPRS28RD06rSUgg5K0rC L5S0MpGMOssihgioyulTU9LIU u YKLupK21sANiAEgfSk5zi2Y7h 324HSSsMXWwmQ18Sm3tbObdGE WswIOPmA5vrxkje5ekxoqmNzN w BNIeSEo4PXr0YTGwxQqkWpQeV SW2IrD6DQE4kWRtrR8ofTdynd wexS7jXvy+D0R5W4UfShcpeTC + ES31RZNaSX40mHRbpZTiv7khv Uf7QnPyDSFtMFX6kAcfBCskx9 RwQRCiN79scQCur2J5TLIqlUu h gUQqJvEvbJS2hA3yHSrjoymin 8vlfkuxGbzyr0wbcv77tN00M6 9sIHdpZHRoPSIzMCUiIHZhbGl n ls9wrF2uUl8+POMmhDB1mOR5i B5vPlPuYsP1ZNxyW055LzMziD PdJixsh8ljw6xzxCa9BwRrBSS g wsUreHsrOGU9v6JwCw04T68dP HdpZHRoPSIyMCUiIHZhbGlnbj 0miB7oZu2+MI2wx7pbqx67dG5 8 dHI+CIAxVKX5qSdoXNzhBKXnv W2cSSnrByT1FLBaUsBvjX14xD MqLVavVh0xmTnyhBugTD0jOFO p kkgns289XvUkj0ilFILcyOBpS JbsWYX7R05sf9D9NIGpRPArNW D5sKQ6kS4daUfnkncsjSUtcGp g vbXmhSkxGIsfCPanH816AJEli XygFvVmzVIqL5wxxgADLE9pZc wvdGQ+DBPoTON3mNyhNQlpCTN k jV2sCEPiR2d7HqXbGsN6BNiqH 2DehzG2HVZivQTcVBVffXRHmW 7gurphn8toksuqOtRdFEBsQLg 0 UBx2BOFcwPeoDzUsJCQ0VhI3D ZA3vBHaqI7fdSgjraukaG8iCr c+RklOOjwvdGQ+HSDyMVD7zKd l PIpaHPNqdJ9eMMMxZ7s6WyKkR vI7PChnE7FbmzW2OYEdmHAkBT YylDRHjA2brubjc3oqdbdsNzN w PUErWOm0LEj7SVTeqJhbNwCpH DN8KxP9YGN9eFGpuU0xvRxrbz bmxO5qYom+TVJOOjwvdGQ+PHR k FCK8bHzhEDadDFWnxF8rEXZcB 9g8QdXpHeM3RCrgM3OvukS6ET UhoDObUDKwnOUCqO1rlhhgl0f v hzpdLoYbJHQwBGd7SXr2NDUsu PhwLkZaTUD9EjB0GQZ5tEWanU 2xnTeotjszcG5uOul+BQF9FBG 6 TG69JA96B8ApJipjlDElyUM+P HRhYmxlIHdpZHRoPScxMDAlJy NozYuxLJ7wSb6kHDLxVCDbfXl h cHN (more content not included)... Normal [facility] T3 Free LCon 08-07-2023 Triiodothyronine,Fr ee,Serum LC 3.5 pg/mL Invalid Interpretation Code 2.0-4.4 [facility] Comment on above: Result Comment: Perf ormed At: [facility] [address] [place], [place] [id number] Yumiko Sheppard PhD Ph:[phone] Performed By: #### 1 [id number] #### [facility] (DEFAULT) [address] [place] [address] T3 Total LCon 08-07-2023 Triiodothyronine (T3) LC 159 ng/dL Invalid Interpretation Code 71-180 [facility] Comment on above: Result Comment: Perf ormed At: [facility] [address] [place], [place] [id number] Yumiko Sheppard PhD Ph:[phone] Performed By: #### 1 [id number] #### [facility] (DEFAULT) [address] [place] [address] Free T4on 08-06-2023 Free T4 [Mass/Vol] 0.55 ng/dL Low 0.61-1.12 [facility] Comment on above: Performed By: #### 1 [id number], [id number] #### [facility] (DEFAULT) [address] [place] [address] Provider Orderson 08-06-2023 Provider Orders [id number] FF [facility] Coding Summaryon 05-06-2023 Coding Summary [employer] 64 MahfpozqYQz7lAi+PGhlYWQ+P H4WUIGdU79ahMOpeW9hG1INZU lOSywgQVBQTElOSyIgbmFtZT1 kaXNjZXJu IC8+YH7nJTDdCrsrlEQhv6G0r TQ5N57doi4jCBpumSP5VWQaHk Loiprwl6owcLm8JZyzSfwrBeP t KHLfjD04WWM5oS11Mq95vOZzl XBfi1bnqEc6IoRtTSEoMEZ8oO etPVyyz2ByKJMfJ71lbUTln7F 6 HDGqxKnefRQyYkUziGI0hV1qY Dtyqxcxm8cqtduiWxa9id01sX Wvb1T1uWU2D8UovxB0VRThhJL g AixkjTAStW2hrowgj9zmznzpY nNzZLBwAEt4ZOh4MHWssVupDi PmLW93LZN4CEZqwdJqK9YrMQF s gHxtUiG6z1N3Yu4OQ2CDEtauX 1VNTUFSWTwvdGQ+US71fq16A4 WzMsnaWkx2BCUvCKK6mNJ7cP6 n QEBhHKvnu0A4vHW1C4XavhHwg f2ce3muETXqFVjkY49ugPBfh9 Z3DOEbwWX0GGLrzEiqYpKdkH7 3 Oyc+YLBhgBlwc3QnMxlnr1mao 6rmjMo6PnaeQEUckcRctQjhTS O9k3WoCp5nVATesTF8qXZ5aK7 i EhBjIpA1QPvlM534OvAisUKbC dnhC16tL8BazDH+YCAbKdq8GE DcjJyuMJ7nV2ZoMWKaemugtTC m fXtfGM0kFYRxrsoyYFXtvH6tQ RKxI5s7TqKnFpH2KLnyP1WiFE AkimcyAm32yF2wZrSlRwL8XOi u Y7HlqdJ0NYTvkULmKEzpATO4Z 76uy9M0PCVfKLRlMFM9hQM2mR 1hbGlnbjogbGVmdDsgdmVydGl j BPzrPMljS652FNMngWfaEcFyT GluZyBEYXRlOiAgMDgvMTYvMj AyMzwvdGQ+LWPaFZO3iUwbGNY n zZIkDVnvVl8qyXhajNpwSU7cE HUjqfdcDFAutK0cYYSttIOawZ fjWM6hBQUkulwtj049FwQvYSJ 0 UODwcYSdB0NioU4yUnIlJJEmE DTaB1DszUCaSVkvX557WYbbDd Q0AJNscdDiQ5HcXPTdkJrnKaO 0 l3S7Zg3Zz2GpmlooM5ZoqAWuR fGtLnepAKl2K9QkNvxmqKK+PC 56SUVkMH52VKd1CBL7rFkuFKs i JVZzW4BbsR3qEiUuWVKmMSQgO yc+PHRhYmxlIHdpZHRoPScxMD LnIeJboFyjZF7cPw5tDYDtVTB v fPlpdJTgBkJaw9iuEXKjWSxfE X1imMefR2QgnGP3MUPxr4b7Gn 48S86fC1StdAN+JGVlmPS2kFP 0 aK4fCjEyKlK1QFfyI151VuMic MZvJsefj6idq0kogXe2JyU6VH ZspdNzoBtiEHP7q2HaKg09T33 s IHdpZHRoPSIxNSUiIHZhbGlnb v9gkD4hZm6+RBPvwWY5uUD2jY 2vPzMyNfX5LSrqT230XnRkaRW v Piyrb9rjq8vkzKk2YaDjGMOqx dUntRkeXRD1s0KgHj83W2IebW jmo4ZdAjy6jx78aITmm4P2hTQ 9 N2PuWSBsbvxduLXiiQncJT8bR LFygwbqMTCkgH9tAJPnD2g5Oi UdEtZ0LHyiK8SvioL5HQTnkOK g DCVaeKPZpB5psocgf0umtlchY wFaLCApSBn1SHj4ZAQavRrwNt AdTUY9EyS1VAE9tTKivT1nnTi n fmslhA8eAff+OAL0wVLcbBIQQ M8tDzfeoHL+JZAcAMG3wBsyKV fgYZYpjS1uFXUdB7u3LtXyApK 1 ASaiB0QjocQ8MLWkeDZfQRJrq UZHdX3xjfehs9qptlqqHeKxFJ QhEFl3AQm9QEOupTtfAxZfNUD 0 WqB8YDV4lWVetM1hcYnukfycg G9wOyc+ShllqDgrHRF9DYt5T3 WsZim9DAHunIfeKI2jkLVxLAn u Pm8fyYwnmLhfMX8hYMTvhprgs 379NfOuw4erPLXugKAlWHudWY B5T15nq6Q0NEPcNRLeVLN6zTF 4 bN2tmUvbqsfdbXEohNlkliBrw NntHMlhKImaG504PBIzuUskQo FbEJk7W6IvLys4OAVjoZbeUG0 n jFZqGGwvPn7zdCnzyUmkWJ9rO OWdphgxo141NyWfm3wuRELffG AmOQytIOH8T14xd0B8NPRaRDP w IMP7qAV6mZ5igJacvhfidGXnp JrqmmFrsUqmYHlaZJexZ274OF OmbVvuZxFiyIf1J3KmIlq8YCE z aQlfJS7rbLJkLJldHe8duSsge BcjDC0cPEZzvfhwo186KrWug1 dpUWLkzSHfYEtfHTA0E52oo6H 6 LWSqEOAnXFL5wCZ6nE4zvNrot jogbGVmdDsgdmVydGljYWwtYW soJ232QDZevPmrRbBgeWmhcjT g NYrrMQl7Z0RwPtzsaOM+PC90Y XBaKR78lMIbwDXny8idgDi9Tk PwYUQoIBR1gBppODjqn9OkHJN t E74gdZByo4P7MZEtrLdavJMkD cZqdDG1yC9sHFvubkhyt6hynv wrHezom6psuu59cP39Z45kEIt p RNBqSLDuUGFpXIIxjLlmot6hy G9wIi8+IUAmoTB3dGT1wE6aLA McLrZ1RHdkT477RjBptNKhXmi j l0yat8cqtUe1DjK9UBBpkfLqp YwlYWP6j6EbNk80S85uFLhtKH RcTBCzRFYhJEUkhUravg2boT5 w Ii8+KQHnaWR3iCL9zC0zDoHzT bI7VEtjY154DrFhsOLrYwnoC5 6dE5WqhQD+XSUwUjg4ECBkfDo s JL5xvFZzJKwdZu6jPCU4TxAtR iUtQMqnB3IuCQCiyoyywfuriD E6JBNtCEVrfP38Dx4buBfmEPQ w sJITkL4woehia8anpwukJrTnR WRbTVp0RSu4EKSeyHlwJdJbVG T7ZtD6PTF3yIKlqD1ndRrufoo g vS1wL6DmTQNcxxwvNx23lP3rK yIjNzD4BKzjBpt+PnUAGz5kEw JFFNLcGVwXI3bWRlMQSG78BY8 8 kJKhj8L4dAV9S2DaKGCjtxjpf zkqdZQ2KVByDCOqgY08tSHfPW nhBl7ui3T1v625OWLdUBKsnK0 7 Ve8ijCdxPYPdoDHUxI7gxfxyl 8jygnvwShNcANRyWFl3VMo7TX SqiQktHiXxWFF5EnN8FIG8gMN h yP1dsDdqgtzjlD5xPbe+MTAvM KEeZHa7KxllfJD+GZKnBFZ4yG sbIMorSZNetF9jEIGnR5p4YeY w BwO6UArmH7ZmZXHghnuiJq74w V7jXtVmGkF3VGnlR9PbdzL1JN YujTAvVZhhETC1N41bw8G5MJK w GKFtOQH4hUI3pQ4imYfynmpmj GVmdDsgdmVydGljYWwtYWxpZ2 26LRTypYwyNeQ1YEepAHRpKH0 0 ZJ86eKDkz0Z5xXI6Q1XvNBVgk kjgahzhvZM8QKPtVUDkwP41vZ IrAOtuSj3yl5U8l226GMNiWBM w fA32Oh1dhWklCPBpjOSPlA9wi qtys5pjbvtgXhMyFMMiXIm4OZ f5CRNknYblPuVyDKA9PnQ6FXR 0 xGXukG3lnSwengchzS2aPev+R pKNLZeKCC25BU03jGNvw0O8uB A0F7HcOZMfwljfduiclQA9MBU u DFOsmF53iQUhVLpqUh4qu7D9v 264OJAxQIQyyU89Fo4obZxsBI XphLWDpW9lgbhtc6ejyljlUoC w PJIqRBm2BXx3XQWgsNheCjPrS NO1BbK7ZXN4cVNfaR0ucNswnr dtyD9vNgn+Q0K4J1MyGsxqdNS + DG27XIAvKO24aTIvrODjt6nwv Ob3JcZwEKLvRGK5sIhhBDhdl8 LxNZVvR45yqXWic1I6BLNysYz h qXLdVvBimNL5sA9lDZtszftka 6avfsohHvsev0oozd43yQ45W7 9sIHdpZHRoPSIzMCUiIHZhbGl n fx2vpM2kGh0+DGGdkVV5fDD7u P9eEnZfLbL5ZUfgW248WkYxmB VpGpsri3qhn9jczRo9DmEzYXV g ovEfaTbtILO1m8KnYi23Z22aJ HdpZHRoPSIyMCUiIHZhbGlnbj 2pmA8zPi1+SU3ib1bsrs72cD4 8 dHI+EGVaNMP3oJrxXCumQEYgn X0tLZagEkT3FGHhGuKczX57uU NbPXryWs6gjEcinTdlSF3eNAD p ouvdb636IdZyg7bcPSDojTOwX BduRFP2O59nf3I9HVEhJWGxLT G8jZD3jN3reTfvywspjRKcgBv g kiVitYfuJKxxGNscI857ZIOnz MqsYyXixDXzX1ubncGWQE3wEu wvdGQ+ETIxWRH2nFdeCPvsPRJ k oJ9tSTGhY0m0ZiFlIkC8TVsiV 6EojdI4XJVuvPMfFJGweFKKyV 2fdbxrl2efvnahUyVjGCQuTIt 0 LEu1UOFflMawCuIfTZU5ScS9O LE9dCNfbY6ovPsjwspunC8wEu c+RklOOjwvdGQ+EOSuBJG6eVk l JDubXLBarU6tKLBaB1g9VeOsA fW4WBumP3KmfqZ1TOTsrWOeFO FprJDKnA4ldnklq2ghszkfJbJ w CQMdUIz3NNa1WRPdxJoeMzTmZ GI4XkL0HNS6xMUrhR4lwGlrrd egnD9bGuu+TVJOOjwvdGQ+PHR k VCD0sTwwZEonWYBdmQ8nNWYiJ 4d7AbRzUnP7KKzvJ3OluiE9LQ UvkFCmCDUvfAHLnI0ujbwzm1z v sruoJaEeEKCmSOj6WDl3DJOkw ZxpWjMtINU7EdS8NIM4hXKhwA 1yfIinxqvulY1eHum+KER6SCC 6 MX49FZ47V0TqRwhdbECnfWP+P HRhYmxlIHdpZHRoPScxMDAlJy TyqNbhTS7ePl2yXPVoHQItbGe h cHN (more content not included)... Normal [facility] T3 Total LCon 05-06-2023 Triiodothyronine (T3) LC 141 ng/dL Invalid Interpretation Code 71-180 [facility] Comment on above: Result Comment: Perf ormed At: [facility] [address] [id number] Yumiko Sheppard PhD Ph:[phone] Performed By: #### 1 [id number] #### [facility] (DEFAULT) [address] [place] [address] Free T4on 05-05-2023 Free T4 [Mass/Vol] 0.52 ng/dL Low 0.61-1.12 [facility] Comment on above: Performed By: #### 1 [id number] #### [facility] (DEFAULT) [address] [place] [address] Provider Orderson 05-05-2023 Provider Orders [id number] IFF Normal [facility] TSHon 05-05-2023 TSH Qn 0.06 m[IU]/L Low 0.45-5.33 [facility] Comment on above: Performed By: #### 1 [id number] #### [facility] (DEFAULT) [address] [place] [address] Coding Summaryon 04-18-2023 Coding Summary HTMLBase 64 CuzthlruOJj7sNu+PGhlYWQ+P O0AGRVnG24miLRzcE5mI5XAAK lOSywgQVBQTElOSyIgbmFtZT1 kaXNjZXJu IC8+KM9qGFCdNgplwIErv8G0z EK2T28vez5lTLniuFA4DFBsNs Utjqnoy4kukIr5EPoqBowcUkP t IBVujQ47UYH1gN14Uh75oBDwy AWtr9zikKb1RdXtIFAtWED6aT tpGIrfs7UjLUXtK89psGDww7L 6 ORFfiDxqtPAkLzKirRW6gR0tN Dblwqwnr4ngxhdnCjc2jn59rZ Uyo7C4rWZ0V3QxqvF5CSFpyXV g ZicsqSMWtQ8wzmynt0ruvlwbL xWaYAXpOYn1HKp7OJSpwBijAb MlYJ54MTN4NKVjwpVsK6PlGMD s yJuvHtW5z0C4Jj7LO0EWNmaaI 1VNTUFSWTwvdGQ+ZW68yc00O0 UaUvvhHie2QQFbERL5rDC5lB4 n GYZyYCgwz9D1yGZ2Z2TvdgMox b8ho5zyIKGlWQrmO24kdLJpz9 K2JIUarIH2UZMjrFtsXvDdtW0 3 Oyc+YKWlrUdpi3MjGcqgw5hnu 6eirAz4MhxzBGZpfdZhlZxhSZ X5z3IwYi7fEZFuhGS1sIS1dG2 i OiTnErP5JKypO952MtTudYGoW elyV05bE4EykHJ+FSVfRop1NP CdeFrrTI4jL1TyTAGefgmnyBR m uEbqAD8kDGQljdilQPVuhN5dT UMmG7m8JkViNfD5DJpxY6VgMK TverbxIc71jO4fPgHrLqF5GSd u K9HzvmC6JFXfkGBpIGueQBK2F 29ba0G5YEYpWLDmFZW2cIW9zM 1hbGlnbjogbGVmdDsgdmVydGl j HLhnXCtrX264DZYkgHvlMkQqZ GluZyBEYXRlOiAgMDcvMjgvMj AyMzwvdGQ+HWPwFXT8aVeqVEM n tNIwMNglAz9jbIjbwDfhQC8rL GYuuefmBDUqjX7uMRFitNVzlI nlAE2gCKCidvktc938XhByUHP 0 ZAOxnCNlO2KybO8mUpTsLURzI SDtT6ZpgKPoRUzxN313HHeiAh X4XDPaubUmM6JcSKEldNlnRkC 0 p8M3Dy5Sr5MjjxaeH5FocPPaK wBgVdqeBUp7F0KcJfqmiKJ+PC 79CXOwGI36USm4XFK8dWlvTZq i MUBmN0DlvE8fRoSmEOXeFANjJ yc+PHRhYmxlIHdpZHRoPScxMD NmOvMusRuzAH7lEe5rGKPbBGF v dJkceDQmOuIto0vePCVfMBhtN G6duCfjJ1VmcZM4NEZtq0g5Ht 92G13zQ5OrkZB+APRnyUG2vGC 0 cM4jGaIgDdZ9WJwsA439KhFom CMzBbxrq9qyy8tlhFx9UsT8HJ TltmUfbUxdAWV2p5FvUj14O06 s IHdpZHRoPSIxNSUiIHZhbGlnb u0qsO4hGl0+CJRoaJW4bTU9gL 5bJdQhGtH5JCxsD291OlRbgPR v Egonk8xtr1coeRe9IhDyWPKfe mVcaCjaAVF4w4GwJt65J3PvaU xmz2TmNvq6ie99fQChn2I9cCN 9 E3PjRMIcarjonTEpyQvbHN7aO WRqukpjKTBemM8sYBJjI8v8Ew IkAoT8FNebV6YyylP8FCQqeTK g AMJnrIJYvL8dkbrox2eyvuajV lJqCIRtVHk8DPs8PWTnrDrlIf OdWWC3IyB4OMF3eDZtbP8cqQb n ygodtE9dVlx+AGA4yDDxqLDWB I2kMwubkII+ZIPsHNN7rUloYP wrDFCapC3xUVDwT6i1OlIwFsW 1 ASacE0XruiU2NUYrmROgSXCll YRDbY4sizbco5zvnzfcPfLgWR ZsXFa5XYo4PDWitMzfIpChFDX 0 GvK5AQE8pMGcmZ5buCyhelekw G9wOyc+FdckgUddVUZ8QXh6M2 PkAgq6VQUcwWtqGG5tzHZwQHc u Yh3ddUknuQhbTY2aFCAdmzyig 526UmXgr6tkESEebEUnFQwiBC B2H70cy0U2POLpINEoJFX9sPD 4 oM5deVafsysrlGJajDcbwqCfz AefTZvdFJojX279SDQzlMegXb FuATu9V1FxAne6IQCwtDhoLX3 n iUKkOKowFn4hqGwnnDyyKJ4uD YMyzjzwf483ZvHmb4kzCNOeqU ZoYDepNAD2H49di0I9SDXjXXH w ASG8bWQ9iG6wjThhqzzhsETyg FejftCggYmwECiwWAklZ314CH LyrIuiWaYgfBj7G3KxIzh5AQL z uGjbFV2tyORgFJgzOm9miXrkb MgdZA3cBSExucocd724JkUfi2 vjWGVyaOKkCGkrIQI6X22mp0G 6 UOYtKTZyKJN1dIK0rQ9eiSkxz jogbGVmdDsgdmVydGljYWwtYW jyL900KBYhgZwmHmGfjJyzuxL g TJgpZFg4V1WmKebnnXJ+PC90Y EPvNZ00vJVfpPHjh1wbsCf9Ma LbFYPxCHV7eNsrKWlon3QvVPS t N09tuKLyp3H6YBIqiFwfsDOzZ yAzaXQ8bX9pUQogieowq6nybz tbZmcaj9qign23xW67R09mDDj p DCCtMNUsEYUdDXVfrIvnyt4nu G9wIi8+WZUkrDV7iMH5jN3eLE TjItS0PNtaP255JdJktJEuFbc j i3sqi9pnuIl1EvC8FIPrrkSem FklOVY6n9RpYa53A38hVSdjZO HsKGVqGRJlHJXenKvqse2otJ1 w Ii8+AIJjyAM1uFW3fE2eRyBvH wA7LFhvV387HbFhpPHyDsslU7 3aC8WqgVT+JMToDed3EJZqtJe s ZN2gdSMhWQrjTg7qMYO7UhOtS jDhXMeyP8TxXROzbdbxwcevhL M4FNGaTPXjgB05Qj8avKtnYYU w rZTCsN1oriqkq4orsniiGuVjT FYqQCp5XMo2MLJryKuuXqXfHE D3IyV4VMR0qTBbkW6bwDumafy g zO6bL6PvQNVgtfroCh07aQ6oA gMaZwO4NTgmJwn+JsRPYj5uLo KMSPMnPJzVP6cHJtJAMI55YX4 8 kJVuj6N9hGY9J0UhTAFvmdqtn hyxgHF9WRByQWFohY07jPZeAN xiRp2rh3N3v548FYYaALUmoD1 7 Rh6maNtrFFBdxDQRtK7kxxsip 9ewbiqkKfJcMRVyPJs9HKj2IC EmaTleXmDiYRE3BhX7GHN4wNU h qM0fyJsivqgdyT8hLyn+MTAvM VVxGYn9KwmemHL+XOJkYIE0iO ytSRobCYIctA9tWATxF0a8FyD w RwI6EMzhT2SsHVAarcbsWb49z D4dTwVwAqT5LQorZ0XyngJ1KC NbiJHzSDbqWDY9J65yb4T7LHN w NETiUJD1cDW9pW2sdBzqtcnlo GVmdDsgdmVydGljYWwtYWxpZ2 44SAGybDxrNuW6FKdfCAKkJC0 0 CR51rEAiq7F9wRL7F8LfTHMde nbcgxxfdFZ3MAEdERRzuZ25hD WcUVnmDd5tz5D8q434LMLdEFD w gU51Bd2ctNvlQYWjgVAAaM6zk wrgv2wrbduxDcRcLGRpACq9OH u8HKWjqTspLmDzJFZ6KpW8HNW 0 zJGazK8vlBswbsukmF0eSpu+R sEMACuIVL48BI78hPVbs7Z7xD W6W4OiDULrsltwptpldZB3NXA u NKDctA36aLJiQUkfSg5bz3O0t 143WPNqYUWlbB40Ss6auHszXR YrfNYRwY8nkhbfl7uyvcdfVeC w XSKpYRg0IQu9DKXfxEzmUqOkM EJ4OdF6ZAO3yFDxlX9gjMsotv xfbF4hKkp+G3O9C3HxFumnlYJ + QA12ROBvOL98qBKcvWRir9vso Da6OzDcRXBqHEI0vRzvPMrso6 IsAZNyN22teHKse4H7IYNfsRp h bAEnWsRapUS6iX0nTTftnaqxw 6ebnsahNrmvu5qtwq05lA14X8 9sIHdpZHRoPSIzMCUiIHZhbGl n wm1knS2uNd8+MLNzgXE5wGM5x V2mVhMxZdH9NJfjV968LmZaeH HeEygzi7xan5pmpUy4XpSoVAU g lyIjuJazFOU8m2EuIo44X08zM HdpZHRoPSIyMCUiIHZhbGlnbj 2jhI6iKh7+EZ4no7lgii91gH2 8 dHI+KQGnEMQ2zCmbPFrnEEMde E8nAZhoQuW6XDSsQbNqmK77jJ KpDZjkLr2yfEhvjAjbME2cIKH p txcqp682MnRdt8giFLWxlTKdA YecVNM4S25ss9S4ASCpAFUsJE J2vUV4xP9hyBcuzzcwyNNgoCu g vlQcjUwyVMqxKObfJ616OJIbn EspMkPknDRaO0yqjhORKF3tRz wvdGQ+CVQeUSJ9qWkrCPjkLRU k aH8tHUOdK5n5NjEcTsO4IYenG 4ZolzL1INMrbTFeGQFsdDHRcL 9jtsbbg6jaxvbzPsOaHCFvSUp 0 AFv2IURudUpqPyXwZRT7ObV2N MM5tBBbkG5opElmitopbD9iPo c+RklOOjwvdGQ+ENDsNXM7rIe l ZSsrWMDdtR8sTOWgO2j2FgAhZ jD0EZnbJ9YmdbW8STUmrOBvRK BfmCSOqZ9sbnqzd0ctimejHaD w BBRhKYf4WVd4YIIeiHobQkNpV RI6OjS1RJX2aRTdfG3ajQebom bweP7rUgk+TVJOOjwvdGQ+PHR k GAB4sZtjDUzvCGIdzT2bFOOxS 3h1BoGcSxN0AYvaN6WfguW0LS FsjEDcFNBvaIVDrQ3qgphsw6k v fublKjNgBLUeJCw4UGm6CKSdl TonEdUsNCX6SuT2LEE6iMHhrE 6dgPcsugqmaZ1sBcd+WJA9RJM 6 FZ19NL84Z7XnWtkvqEXanJB+P HRhYmxlIHdpZHRoPScxMDAlJy HvuPipLK6sVu7tPJXnTENepTt h cHN (more content not included)... Normal [facility] T3 Free LCon 04-15-2023 Triiodothyronine,Fr ee,Serum LC 4.4 pg/mL Invalid Interpretation Code 2.0-4.4 [facility] Comment on above: Result Comment: Perf ormed At: [facility] [address] [id number] Yumiko Sheppard PhD Ph:[phone] Performed By: #### 1 [id number] #### [facility] (DEFAULT) [address] [place] [address] Free T4on 04-14-2023 Free T4 [Mass/Vol] 0.65 ng/dL Normal 0.61-1.12 [facility] Comment on above: Performed By: #### 1 [id number] #### [facility] (DEFAULT) [address] [place] [address] Provider Orderson 04-14-2023 Provider Orders [id number] FF Normal [facility] TSHon 04-14-2023 TSH Qn 0.02 m[IU]/L Low 0.45-5.33 [facility] Comment on above: Performed By: #### 1 [id number] #### [facility] (DEFAULT) [address] [place] [address] US Thyroidon 01-26-2023 US Thyroid HISTORY: History of thyroid nodules. TECHNIQUE: Sonography and Doppler imaging of the thyroid was performed. Images were obtained and stored in a permanent archive. COMPARISON: None available. RESULT: RIGHT LOBE: 3.3 x 0.9 x 1.1 cm ; homogeneous echogenicity, expected vascular flow LEFT LOBE: 3.2 x 1.2 x 1.1 cm ; homogeneous echogenicity, expected vascular flow ISTHMUS: 0.2 cm. Nodules: 0.4 cm TR 1 benign cyst in the right inferior thyroid. No suspicious nodules. Lymph nodes: No enlarged cervical lymph nodes. IMPRESSION: Unremarkable thyroid ultrasound. Note, ACR TI-RADS is a reporting system for thyroid nodules on ultrasound proposed by the [employer] (ACR) Report reported and signed by Kin Graves on 01/26/2023 1140 Normal [facility] Reverse T3 LCon 01-17-2023 Reverse T3 LC 15.7 ng/dL Invalid Interpretation Code 9.2-24.1 [facility] Comment on above: Result Comment: This test was developed and its performance characteristics determined by [facility]. It has not been cleared or approved by the Food and Drug Administration. Performed At: [facility] [id number] Michelet Barnes MD Ph:[phone] Performed By: #### 1 [id number] #### [facility] (DEFAULT) [address] [place] [address] Coding Summaryon 01-13-2023 Coding Summary HTMLBase 64 MpgxczphXIv4sMe+PGhlYWQ+P D1ORTBrV60inSLjzL6PU5cCMU 8SWVXYIYFJBS3MTQ3jgRW6VVt rE2JwqvJz RfbbiSMgXR30CEz4TTL9wEwbH IlwgL4bsYEyB7f3NqIbNU80iC 89OJwoSAPsHuU0CsDwxbclaYV y D6adGuJudDLiKbw+PHRhYmxlI HdpZHRoPScxMDAlJyBzdHlsZT 2cTb1wEFUmKNSkqXbbyAIsQdJ j r2pvCNRwJDlnSW1nqExsS5Fzz LF2MXDnu2s2Rc85wSF+PHRkIH X7sLqdOCsku907ZuCaq6acQXC 3 vWMkHTivZHU8O35ix9X1FKMeA JWtTMG1wUH6gT6sdUmjncxcY9 IzyOQmFkQ4BFN9jCAtuG6zeMq n fnqusJ4hAce+E83FFN4IYHMCW H5LVpk1V1IwAzwxlOV+PC90YW TyHD52vRGxcXOmx7wpoBf6UmQ w ZOAoSHD2wFdkFUijo9OuNYSzT 14jeEMxv4R5LLSinAycsHItTx PuoPW9nT1oEGdgaqwgx2mhcox n Ckczo1rfyo95xW33J65vJSciD JUjTZC0QDFcHCSvnBxkfj6zrO 9wIi8+IAmjq1kkf7zacZw7OxO w WNVvzxVxeQchRNC6e4TgCf98I 7LhsRofj1QdXdq8ub77kSUxq1 G7pSJ3ZSdgWDZaxH8bFVddTgD 6 VPSfIoHqwI58hTGpCMabGd8nv IeyrKasRI9hELPhrgvuEIWkfL 0mXGQwqBNwmBeqPQ3cAITnjci m t696AcTeSDF0ZOQuaTPyH6Mwj Y4mGgFyARGmCXMvZ3TapPMyXI zsE034UFftRoD0PEApvnBcR5J s DPQubVnsCeV7s7L3Vu1Bk3Kmp ymlFZE4DGgfBFL8UkA0EiDgBt Y3E7LgEom0MKDfhDpuOB4oO7K h SYJmqeafytnweZX7FOCnCFDsu Y49rCQzLEaeDe5ho5X8p595FV UuBLUwgB51Bv0thMgbLNTsoQX U cU8lgxnix6hyzbprSsJqCSNrL Mj7YIp1KWDglJyfJpJxRAO7Ss N2JHP7lUTdyT5fuXwrmxvxnI1 w Oyc+A43evN6iOLK9NTS2hdceS ZDcdpUrMC66KE70N8CyEfszlA FibGU+KRPpwrDqeBkvOZ6jYpY j x3cpl8JbFJuaP2JcOTSgFQkeC xs6PQLtQNQ9iOO3bZ2yFNNvMN gbi8B6vTR1J3TdikFvjy0uf9o s ZBUoPGloA26uqZVnr8H3GNSdx GM9NRAjpCmsHfIqtK50Vpj+PG GaxSdjj8AtThrrg4bke7lqwBb 9 PnChDNTiedQyjLsqMUS2t6LuQ n70X76bKQttSUFeDGPbMPCjGI TsnHausv5wkY6pSl6+PGNvbCB 3 aWP4yB1tFVHyIuN3VNvkV918P xKoqVKaVljus5pxy1bdxZc4Ns YtVEYsdxIrcHqoRED5m3MvTt4 8 Y87yASyhVTDvEAFaVYUcSVJik Zxyty7rjR0yMa9+FN5yd9kfxy 57mI23eTE+ITLpFPN2lOpfTKh w ZLZhtK9vVPbuBmF0PSSsPuKqs R05bAUwDGptNr9kfKxghAkeBS 2nVOYcaloqo358AwLsh7vuESN w sITyEXgvDCL3H98zc7P5WNBoK SJtXLT4xXO6eJ9orHgtqvrvhB IpsEzasxEafAppBRxiYLfyH16 6 IHRvcDsnPlBhdGllbnQgTmFtZ Tb6Y7FpBkw5RYLchNyzSO7nbK UbRZxmJc8ctAxizLfoSJ7pVKJ p nqpxp272NhRtt0qbAESyhNUyG JgeSKT0R79xl8N4SOSsGHOyJY W7kSG3oQ9ysSzrbldubEZsqIu g iwOzzDjmPHhyQIkkK700TXTkx VhgXjRgulFkOGSxkRM1SX64EC 03lDIuc9B7jUF1K6QfFHKviov t amploVE3TFZqOZYkiU84Kg7vw QoaDx7mNDMgNPH0ZTUrsLZtY9 EpwG2eJtCtKPXzBOGfX6ByzXF t JDzyU978MSdhEqZ8SKKannQfB 7DfEWOciSaaWvW3s6W2Nv7SZ2 F2QI32GU95xGWem1C8hRA4D7K h AHCvasqrxjoyiOX6DKEhJQGlg K13Yj4ozTkhWa1aAPBgFNC0FH JeoVRuB1SskE8vNcOiBQAoISO w G8DeuQXrLXbeW134KWcqQuJ4E XWwyiUgL7MlJNMxfNloRgD6s8 F0Vv4NRKu9BE15TY00aCHif8A 5 jVX9N5MoIKKrmchqulhrzRK2N DZpKWDqgW76Xh3akXdeYc6kVD IdXIO6CMMzgXRaM3CrhL7aSoM j ECMjFBUkA3UcmBIrAJmeH848C IkdPdG3KZYeqdZuM7MdJFYuyI ocGcU6w3M3Bl9CHYCnPQ76FIT 5 rQO4GQ25RT50Z3ShCtsiuSFzd +PHRhYmxlIHdpZHRoPScxMD NdOnUckUnaFW7wZz3aUVTkESB v kFntcQFfGwWxi7kvWTZyEBziK Z8cyJhtA2JsbWV0UEOxs5j1Qw 40J42uV5BcyJT+IPNvhLE5rNU 0 pO2qYpDvMbX5CRanN940ZpCia ENbXhbhc5hkk0qduMn5BiU2ID RgqtAxeBwfKVJ5t8AzAz34P76 s IHdpZHRoPSIxNSUiIHZhbGlnb t4eiY1wXw2+FJApgUE7vSE1aD 8vIdSsOnM4JKwpV044BrIevTZ v Rnkbs8auz4zueGi8GbJdDHKlt iBgxKarWTJ7c9DlLa48W2QnbO pgk2KqAdn5ik90jPApq5G8oDE 9 C6BiNOBybnxjrBOyyQjqLS5jJ NKybhdxCBEyyV4kHPRfX5t0Ft LeCjD9GDgrZ7JfzuM9QWDryZM g PAniXRN9F51wn3Y6EOZaHDHsN NM9qQX1cH2oqPkadccrqPSbmZ iquoFsdNsfBJloXQimU206FXG v vHojKCNsdF1vSUZenMGeiQnpW N8tMWGsxqolXzEZKgMOXZnWXg AYTSOCLHXYZW1tAMtgeLO+PHR k LTC3tPlxCOgiDHOglS1aUDOrU 0b9BjMvXlP3CRkoF9YkBHLssc qyTv98cJ0uReVwPjC1NAjaL4P v seE8EKFmwVFjWFobCEQ1V76um 6L0KITzMYAmCTW5dDV2qE0bzW lnbjogbGVmdDsgdmVydGljYWw t PJdkB343VKAynAqvZvRkQtA3X pU2Ixd7C6DlGoo5TMIplNlrRF 2rzUFeVYhuRl3moGrhvPwfVT0 w ROLqcupkRCDzbH6nBNBndYTde MtgPF6kQPJsogouh777MjTwAE I9MDRjxMNkZ3TeuZ5aXuWcCHV w MOIrI9JahFJxDRanX903DHriY cW0ZCEtidLvL3WiLGLfxMvhKl P3s6Z5Nw36DFSXBZOapeenvAR + GHIyTIG0mMtpDWjcHFQlwS5dX BMyP2k0RiFsPpU4QXofZ5LlAR IsyuwbOc65kM7vCfBvOnJ2GNo u O9WlgyW6XILtyNScABfpXSX5O 52sb3T7LZIhAFEiMQO6kMQ3vY 1hbGlnbjogbGVmdDsgdmVydGl j YZnzPCfhD222AYEpuKpaQeZST UFMRTwvdGQ+OBElLYK2qQywOX ljAMNmdD7jYABmW9v1JvQnTcR 1 NMhyN8TiBSGbjvooYb75iJ4eJ xFxKaW3PGevN5YudxQ9GHTzgX ZgQNhyHNJ9F96xh0K0MBStQSN w QXK4pYS9cI1agQhmvekswUPmt JiuwsBrmWiqJKqvRXctH842YG YxkAihZy8PSC13IJ13D2EzYyo v dGFibGU+PHRhYmxlIHdpZHRoP SfqVGVcAsVbeSlqAG3hUj5cEY CfKGPkpHshjJGwRfDbk2isNPR z DDkjRO9wqOlvC9KqeAO3ACTdv 6t9Op12U99iO3XtePR+PGNvbC C0wTN2fZ2pCzIwZxS0ENvzA33 9 SoLwsXUnZaxth9qiz3ahcWu2Q gDcWLVbdiEzyTzeHNA6w3AlHj 53Y36iKVhiYXTjKEIuVNAkUQV h qFdotq9keU8fOh1+KQKzqJO8u LI8pT2gMtZgLhN3QHprK549Pn GyzVQgIqodV72rJ7OcfPG+PHR y Ffo5YGUpePzeSK3xlYLgKOxkS y9mFHP0WyFaRvDcBMmvL8TtNB QxryanarjzlDS4UHLyELJmaM3 7 Vp7xqMqcFy4mGSUvJYO0RLXax OPkW1FyeL2yNuAnUDVySDOuV3 MnqKRiWUnqV761SKcwEaB5BHF l ktSuD9LdXMQmhJznUuW6g0F3Q n8AbXwwyBPeSY0zAeQzMHt8J5 MuAut4HLBooIocSI4caRUgUOc u Od7qiYiioNooYM0rPZNvgxump 122LyIup8zbGNOwzGRpYTmfEB S7J08vi8F0VNBsQPMhOKB8sAZ 4 nB0lrEhliktbvBZzyQpbmnAhp YkqZVwzANoxY957LNSojHzqUw LZOxg7U0ZoYnp6OYHbzFyxGG0 n eYAsWMejMv9saTwwpGyvYT0jV TErxtzzi016JtOap4vyHAGdrZ AuCWkyZWZ1M81vt2N4JAJyMWX w DUJ8pTF7cE2rlFuhsznrfTEbp CgnxsPeiIquIFgdHWvwM309RA HzpSgjSh7NSas5I0GkXqx5GGF z rTymLK0alFWkPVqiAp7ycQzsq DibKS2hGYHfngqmi038OqKgm9 bwXFXrpUWjDGtjVRP2N30fx2S 6 ITAvBHOlYQS1dST1gL9yzTgec jogbGVmdDsgdmVydGljYWwtYW gaO101YSKqnNxcHkJzmSJwMzh v dGQ+BA42wq62Y3DoMkzfZel7G XScSLY0gKR0pD5oCYGnJNypu4 F6tTG6D7ZffrWvnk1gi5upHGC z ZTo (more content not included)... [facility] Provider Orderson 01-13-2023 Provider Orders [id number] [facility] T3 Free LCon 01-13-2023 Triiodothyronine,Fr ee,Serum LC 3.3 pg/mL Invalid Interpretation Code 2.0-4.4 [facility] Comment on above: Result Comment: Perf ormed At: [facility] [address], [place] [id number] Yumiko Sheppard PhD Ph:[phone] Performed By: #### 1 [id number] #### [facility] (DEFAULT) [address] [place] [address] T3 Total LCon 01-13-2023 Triiodothyronine (T3) LC 135 ng/dL Invalid Interpretation Code 71-180 [facility] Comment on above: Result Comment: Perf ormed At: [facility] [address], [place] [id number] Yumiko Sheppard PhD Ph:[phone] Performed By: #### 1 [id number] #### [facility] (DEFAULT) [address] [place] [address] Extra SSTon 01-12-2023 Tube Collected Yes Invalid Interpretation Code [facility] Comment on above: Performed By: #### 1 [id number] #### [facility] (DEFAULT) [address] [place] [address] Free T4on 01-12-2023 Free T4 [Mass/Vol] 0.75 ng/dL Normal 0.61-1.12 [facility] Comment on above: Performed By: #### 1 [id number] #### [facility] (DEFAULT) [address] [place] [address] SCREENING MAMMOGRAM W/MONSERRAT, BILATERAL*on 10-06-2022 SCREENING MAMMOGRAM W/MONSERRAT, BILATERAL* CLINICAL HISTORY: Screening Mammogram COMPARISON: 09/19/2021, 08/27/2020, and 05/30/2019. TECHNIQUE: 2D and 3D Tomosynthesis of the right and left breasts was performed. FINDINGS: DENSITY: Heterogeneously dense. There are no suspicious masses, areas of suspicious microcalcifications or areas of architectural distortion identified. No evidence of skin thickening. IMPRESSION: BIRADS 1 : NEGATIVE, NORMAL INTERVAL FOLLOW UP. Board certified radiologist. Accredited by the ACR and FDA. MAMMOGRAPHY IS VERY IMPORTANT TO YOUR HEALTH. CURRENT [employer] GUIDELINES RECOMMENDS ANNUAL MAMMOGRAPHY BEGINNING AT AGE 40. THIS FACILITY USUALLY USES A REMINDER SYSTEM TO ENSURE ALL POSITIONS RECEIVED REMINDER NOTIFICATIONS AT THE TIME BASED ON THE RECOMMENDATIONS OF THIS EXAM. Report reported and signed by Hannah Yap on 10/08/2022 1159 Normal [facility] [employer] HCG ( test) Isaac hester Ql (U)Ordered By: Kwame Noel on 08-18-2022 HCG ( test) Ql (U) Negative [facility] VC CONSULT FOLLOWUPon 2020 VC CONSULT FOLLOWUP Patient: CESAR DE LA TORRE Exam Date: 09/18/2021 : 1975 Gender:F Ordering : DR BECKY TORRES M.D. Admission #: [id number] Family : Order #: [id number] CLICK HERE TO VIEW EXAM RADIOLOGY REPORT PROCEDURE: VEIN CENTER CONSULTATION FOLLOWUP VEIN CENTER - OFFICE VISIT FOLLOW UP COMPARISON: VC CONSULT FOLLOWUP, 09/10/2021. VC CONSULT FOLLOWUP, 08/09/2021. PROGRESS NOTES: The patient reports a pop in her left anterior upper to mid thigh/she was picking up her child and complains of some mild tenderness and lumpiness in the region. The patient has concerned that this vein has reopened. Physical exam demonstrates mild to moderate hemosiderin staining of the left leg along the anterior and medial thigh. Multiple thrombosed varicose veins can be palpated corresponding to area of the patient's concern. No areas of erythema warmth or ulceration. No evidence of cellulitis or thrombophlebitis Ultrasound in this region was made demonstrating thrombosed varicose veins. No significant residual incompetent varicose veins are observed. IMPRESSION: 1. 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 No significant residual incompetent varicose veins observed PLAN: Follow-up as needed Nurse notes, history and physical were reviewed and confirmed, see attached forms. The nurse was present throughout the physical exam and consultation Dictated by: Becky Torres MD on 09/18/2021 at 14:05 Approved by: Becky Torres MD on 09/18/2021 at 14:[address] [facility] VC EXT VENOUS LT LIMITEDon 1 VC EXT VENOUS LT LIMITED Patient: EB DE LA TORRE Exam Date: 09/18/2021 : 1975 Gender:F Ordering : DR BECKY TORRES M.D. Admission #: [id number] Family : Order #: [id number] CLICK HERE TO VIEW EXAM RADIOLOGY REPORT PROCEDURE: VEIN CENTER EXTREMITY VENOUS LEFT LIMITED COMPARISON: VC EXT VENOUS LT LIMITED, 07/12/2021. VC EXT VENOUS LT LIMITED, 06/18/2021. INDICATIONS: Phlebitis and thrombophlebitis of superficial veins of left lower extremity I80.02 TECHNIQUE: Lower extremity phelps scale and Duplex Doppler evaluation of the deep venous system from the inguinal ligament through the calf veins. FINDINGS: REGION: Left lower extremity. THROMBI: Negative for DVT. Area treated with Varithena/microfoam is seen with echogenic thrombus. COMPRESSIBILITY: Noncompressibility corresponding to throb FLOW: Absent flow corresponding to thrombus OTHER: No significant incompetent varicose veins are observed *Exam performed in accordance with [facility] practice guidelines- Peripheral venous ultrasound, December 15, 2009. CONCLUSION: Post ablation occlusion of left leg incompetent varicose veins Dictated by: Becky Torres MD on 09/18/2021 at 14:04 Approved by: Becky Torres MD on 09/18/2021 at 14:[address] [facility] VC CONSULT FOLLOWUPon 2020 VC CONSULT FOLLOWUP Patient: CESAR DE LA TORRE Exam Date: 09/10/2021 : 1975 Gender:F Ordering : DR BECKY TORRES M.D. Admission #: [id number] Family : Order #: [id number] CLICK HERE TO VIEW EXAM RADIOLOGY REPORT PROCEDURE: VEIN CENTER CONSULTATION FOLLOWUP VEIN CENTER - OFFICE VISIT FOLLOW UP COMPARISON: VC CONSULT FOLLOWUP, 08/09/2021. PROGRESS NOTES: The patient reports improvement in leg symptoms bilaterally. There has been interval reduction in varicosities. The patient has followed our recommendations to walk 20-30 minutes once or twice per day since the procedure. Physical exam demonstrates marked decrease in varicosities and spider veins of the right and left leg. No persistent treatable veins. Review of the ultrasound performed the same day demonstrates occlusive thrombus extending throughout the treated vein, see separate report, consistent with a successful ablation. No thrombus extending into or beyond the saphenofemoral junction. IMPRESSION: 1. Successful ablation of the treated branch saphenous varicosities. 2. No remaining treatable veins. Nurse notes, history and physical were reviewed and confirmed, see attached forms. The nurse was present throughout the physical exam and consultation Dictated by: Hannah Dick M.D. on 09/10/2021 at 12:15 Approved by: Hannah Dick M.D. on 09/10/2021 at 12:[address] [facility] VC EXT VENOUS HALEY LIMITEDon 09-10-2021 VC EXT VENOUS HALEY LIMITED Patient: EB DE LA TORRE Exam Date: 09/10/2021 : 1975 Gender:F Ordering : DR BECKY TORRES M.D. Admission #: [id number] Family : Order #: [id number] CLICK HERE TO VIEW EXAM RADIOLOGY REPORT PROCEDURE: VEIN CENTER EXTREMITY VENOUS BILATERAL LIMITED COMPARISON: VC EXT VENOUS HALEY LIMITED, 08/09/2021. INDICATIONS: Phlebitis and thrombophlebitis of superficial veins of bilateral lower extremity I80.03 TECHNIQUE: Lower extremity phelps scale and Duplex Doppler evaluation of the deep venous system from the inguinal ligament through the calf veins. FINDINGS: REGION: Right lower extremity. THROMBI: None. Areas treated with Varithena/microfoam visualized with echogenic thrombus in the right lateral posterior thigh COMPRESSIBILITY: Non-compressible AND partially compressible segments. FLOW: Areas on no flow. OTHER: REGION: Left lower extremity. THROMBI: None. Areas treated with Varithena/microfoam visualized with echogenic thrombus in the left post lateral thigh and mid anterior thigh COMPRESSIBILITY: Non-compressible AND partially compressible segments. FLOW: Areas on no flow. OTHER: Short segment of dilated varicosity within the left proximal anterior thigh , 5.9mm with 2.1s of reflux which dives deeper and joints near the saphenofemoral junction. Prior treatment stay distal to this area to prevent spillover into the deep system. No additional treatment of this short segment is planned. *Exam performed in accordance with [facility] practice guidelines- Peripheral venous ultrasound, December 15, 2009. CONCLUSION: 1. Successful post ablation occlusion of treated branch saphenous varicosities within the right and left leg. Dictated by: Hannah Dick M.D. on 09/10/2021 at 12:13 Approved by: Hannah Dick M.D. on 09/10/2021 at 12:[address] [facility] VC INJ FOAM SCLERO W US MLTI on 09-02-2021 VC INJ FOAM SCLERO W US MLTI Patient: EB DE LA TORRE Exam Date: 09/02/2021 : 1975 Gender:F Ordering : DR BECKY TORRES M.D. Admission #: [id number] Family : Order #: [id number] CLICK HERE TO VIEW EXAM RADIOLOGY REPORT PROCEDURE: VEIN CENTER INJECTION FOAM SCLEROSING SOLUTION WITH ULTRASOUND MULTIPLE VEINS - LEFT LEG NO CHARGE FOR THE RIGHT LEG COMPARISON: VC INJ FOAM SCLERO W US MLTI, 08/02/2021. VC INJ FOAM SCLERO W [facility], 07/05/2021. Pre-operative Diagnosis: CEAP class C2 venous insufficiency with pain, tenderness, edema and incompetent left anterior accessory saphenous vein and branch saphenous tributaries/varicose veins, chronic venous insufficiency left leg secondary to venous incompetence Post-operative Diagnosis: CEAP class C2 venous insufficiency with pain, tenderness, edema and incompetent left great saphenous vein and branch saphenous tributaries/varicose veins, chronic venous insufficiency left leg secondary to venous incompetence Procedure Performed: 1. Ultrasound-guided microfoam chemical ablation with Varithena(r) 2. Intraoperative ultrasound guidance Physician: Becky Torres M.D. Anesthesia: None Indications for Procedure: 46-year-old female who presents with a long history lower extremity pain swelling and varicose veins. The patient failed conservative medical therapy including medical compression stockings, exercise and analgesics. 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 Duplex scan showed reflux and enlarged diameters up to 12 mm. The patient underwent informed consent including management options where the complications of infection, bleeding, pain, and skin injury were discussed. Particular attention was spent discussing thrombus extension and deep vein thrombosis as well as the possibility of pulmonary embolus and treatment with oral or injectable blood thinners. Procedure: The patient walked to the procedure room. All applicable staff donned appropriate apparel. A procedure timeout was performed to confirm correct patient, correct extremity, correct procedure, and correct room set-up including presence of all applicable supplies, devices, and drugs. A duplex ultrasound, performed by myself confirmed the location and incompetence of left leg incompetent varicose veins and their course marked on the skin together with the dilated tributaries. The extent of treatment of the vein and the associated varicosities was determined through ultrasound mapping. The patient was placed on the operating room table. The limb was prepped. The skin was punctured with a butterfly needle through the skin with the venous access needle and advanced under ultrasound guidance. The target limb was positioned at 45 degrees of elevation in relation to the torso utilizing a foam pad. The Varithena(r) canister was previously activated and the canister was primed and purged as required in the instructions for use. Following injections were made: 10 mL aliquot of Varithena(r) was drawn into a sterile syringe. Injection into a 5 mm varicose vein lateral posterior distal thigh, this was a tributary arising directly off the saphenofemoral junction measuring up to 12 mm at the junction. This could represent the remnant of the anterior accessory saphenous vein which after treatment shunted into this varicosity. The outflow tract was occluded by hand and subsequently with the ultrasound transducer for a total of 10 minutes until dissolution of the foam was observed by ultrasound 5 mL aliquot of Varithena(r) was drawn into a sterile syringe. Injection into a 4 mm varicose vein lateral knee. Varithena(r) was slowly administered at 0.5-1.0 cc/second with close observation by ultrasound of its course in the injected veins. A total volume of 15 mL of Varithena(r) was used. During administration of Varithena(r), the patient was asked to dorsiflex the ankle to limit flow of Varithena(r) into perforating veins. Once appropriate spasm had been confirmed in the treated veins, the vascular catheter was removed from the leg and light pressure was applied over the puncture site for hemostasis The common femoral and deep superficial veins were then evaluated for flow and compressibility prior to dressing placement. The lower extremity was kept elevated at 45 degrees above the horizontal and cording material was applied over the saphenous segments and tributaries to allow for eccentric compression over the target vessels including the targeted saphenous vein(s). A multilayer dressing was applied consisting of foam pads, coban and thigh-high 20-30 mm Hg compression elastic support hose were placed on the patient. The leg was lowered only after compression had been applied and the patient was immediately ambulatory. The patient ambulated 10 minutes under supervision and was without apparent concerns at time of release Po (more content not included)... 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 Admission #: [id number] Family : Order #: [id number] CLICK HERE TO VIEW EXAM RADIOLOGY REPORT PROCEDURE: VEIN CENTER INJECTION SCLEROSING SOLUTION MULTIPLE VEINS SAME COMPARISON: VC INJ SCL KARLY NUT BLANKER OPERATOR VEINS, 08/13/2021. INDICATIONS: Pain co-occurrent and due to varicose veins of bilateral legs I83.813 PROCEDURE NOTE: The risks and benefits of the procedure were explained at length to the patient and informed written consent was obtained. Kade White R.N. was present and assisted. The procedure was performed under sterile technique. The patient's leg was wrapped with Coban and postprocedural verbal and written instructions provided. SCLEROSANT: 2 cc, 0.5% polidocanol VEIN(S) INJECTED: 12 veins in the left leg VISUALIZATION: Ultrasound was not used to visualize the sclerosant ANESTHESIA Supercooled air COMPLICATIONS: None CONCLUSION: 1. Technically successful sclerotherapy as described Dictated by: Hannah Dick M.D. on 08/20/2021 at 16:10 Approved by: Hannah Dick M.D. on 08/20/2021 at 16:[address] 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 Admission #: [id number] Family : Order #: [id number] CLICK HERE TO VIEW EXAM RADIOLOGY REPORT PROCEDURE: VEIN CENTER INJECTION SCLEROSING SOLUTION MULTIPLE VEINS SAME COMPARISON: None. INDICATIONS: Pain co-occurrent and due to varicose veins of bilateral legs I83.813 PROCEDURE NOTE: The risks and benefits of the procedure were explained at length to the patient and informed written consent was obtained. Kade White R.N. was present and assisted. The procedure was performed under sterile technique. The patient's leg was wrapped with Coban and postprocedural verbal and written instructions provided. SCLEROSANT: 2 cc, 0.5% polidocanol VEIN(S) INJECTED: 12 veins in the left leg VISUALIZATION: Ultrasound was not used to visualize the sclerosant ANESTHESIA Supercooled air COMPLICATIONS: None OTHER: Ultrasound evaluation of the proximal anterior left thigh in area of patient concern demonstrates a 9 mm incompetent branch saphenous varicosity with 0.8 seconds of reflux. CONCLUSION: 1. Technically successful sclerotherapy as described. 2. Abnormally dilated 9 mm, incompetent branch saphenous varicosity within the proximal anterior left thigh. Occlusion of the vessel via microfoam chemical ablation should be performed. Dictated by: Hannah Dick M.D. on 08/13/2021 at 12:57 Approved by: Hannah Dick M.D. on 08/13/2021 at 13:[address] [facility] VC CONSULT FOLLOWUPon 2020 VC CONSULT FOLLOWUP Patient: CESAR DE LA TORRE Exam Date: 08/09/2021 : 1975 Gender:F Ordering : DR BECKY TORRES M.D. Admission #: [id number] Family : Order #: [id number] CLICK HERE TO VIEW EXAM RADIOLOGY REPORT PROCEDURE: VEIN CENTER CONSULTATION FOLLOWUP VEIN CENTER - OFFICE VISIT FOLLOW UP COMPARISON: VC CONSULT FOLLOWUP, 07/12/2021. VC CONSULT FOLLOWUP, 06/18/2021. PROGRESS NOTES: The patient reports no significant difficulty following micro foam chemical ablation. She did require oral analgesics. She has worn her compression stockings. The patient has followed our recommendations to walk 20-30 minutes once or twice per day since the procedure. Physical exam demonstrates multiple thrombosed varicose veins with mild hemosiderin staining. There is a large residual varicose vein extending from the medial mid thigh across the anterior, lateral mid thigh extending inferiorly towards the popliteal fossa Review of the ultrasound performed the same day demonstrates occlusive thrombus extending throughout the treated veins. No deep vein thrombus. Residual left leg varicose vein measuring 3.7 mm with reflux of 0.4 seconds. The patient expressed a desire to proceed with treatment of reticular and spider veins with injection sclerotherapy. We will try to get precertification for micro foam chemical ablation of the left leg. IMPRESSION: 1. Successful micro foam chemical ablation of varicose veins 2. Persistent reticular and spider veins PLAN: 1. Injection sclerotherapy of reticular and spider veins 2. Precertification for micro foam chemical ablation left leg Nurse notes, history and physical were reviewed and confirmed, see attached forms. The nurse was present throughout the physical exam and consultation Dictated by: Becky Torres MD on 08/09/2021 at 13:05 Approved by: Becky Torres MD on 08/09/2021 at 13:[address] [facility] VC EXT VENOUS HALEY LIMITEDon 08-09-2021 VC EXT VENOUS HALEY LIMITED Patient: EB DE LA TORRE Exam Date: 08/09/2021 : 1975 Gender:F Ordering : DR BECKY TORRES M.D. Admission #: [id number] Family : Order #: [id number] CLICK HERE TO VIEW EXAM RADIOLOGY REPORT PROCEDURE: VEIN CENTER EXTREMITY VENOUS BILATERAL LIMITED COMPARISON: None. INDICATIONS: Phlebitis and thrombophlebitis of superficial veins of bilateral lower extremity I80.03 TECHNIQUE: Lower extremity phelps scale and Duplex Doppler evaluation of the deep venous system from the inguinal ligament through the calf veins. FINDINGS: REGION: Right lower extremity. THROMBI: No DVT. Areas treated with Varithena/microfoam visualized with echogenic thrombus in the right lateral mid thigh COMPRESSIBILITY: Non-compressible AND partially compressible segments. FLOW: Absent flow corresponding to thrombus OTHER: No varicosities visualized on right lower extremity REGION: Left lower extremity. THROMBI: No DVT. Areas treated with Varithena/microfoam visualized with echogenic thrombus in the left mid thigh COMPRESSIBILITY: Non-compressible AND partially compressible segments. FLOW: Absent flow corresponding to thrombus OTHER: Varicosities visualized in the lateral thigh measuring 3.7mm with 0.4s of reflux. *Exam performed in accordance with [facility] practice guidelines- Peripheral venous ultrasound, December 15, 2009. CONCLUSION: Successful post ablation occlusion of bilateral incompetent varicose veins with residual incompetent varicose vein left anterior and lateral mid thigh Dictated by: Becky Torres MD on 08/09/2021 at 11:58 Approved by: Becky Torres MD on 08/09/2021 at 12:00 [facility] VC INJ FOAM SCLERO W US MLTI on 08-02-2021 VC INJ FOAM SCLERO W US MLTI Patient: EB DE LA TORRE Exam Date: 08/02/2021 : 1975 Gender:F Ordering : DR BECKY TORRES M.D. Admission #: [id number] Family : Order #: [id number] CLICK HERE TO VIEW EXAM RADIOLOGY REPORT PROCEDURE: VEIN CENTER INJECTION FOAM SCLEROSING SOLUTION WITH ULTRASOUND MULTIPLE VEINS COMPARISON: VC INJ FOAM SCLERO W US MLTI, 07/05/2021. Pre-operative Diagnosis: CEAP class C2 venous insufficiency with pain, tenderness, edema and incompetent incompetent saphenous vein, chronic venous insufficiency left leg secondary to venous incompetence Post-operative Diagnosis: CEAP class C2 venous insufficiency with pain, tenderness, edema and incompetent incompetent saphenous vein, chronic venous insufficiency left leg secondary to venous incompetence Procedure Performed: 1. Ultrasound-guided microfoam chemical ablation with Varithena(r) 2. Intraoperative ultrasound guidance Physician: Hannah Dick M.D. Anesthesia: None. Indications for Procedure: 45 year old female. Symptoms including leg pain, heaviness, aching for many years despite conservative medical therapy including medical compression stockings, exercise and analgesics. Prior procedures include: Endovenous laser ablation and microfoam chemical ablation. 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 Duplex scan showed reflux and enlarged diameters up to 4 mm. The patient has undergone informed consent including management options where the complications of infection, bleeding, pain, and skin injury were discussed. Particular attention was spent discussing thrombus extension and deep vein thrombosis as well as the possibility of pulmonary embolus and treatment with oral or injectable blood thinners. Procedure: The patient walked to the procedure room. All applicable staff donned appropriate apparel. A procedure timeout was performed to confirm correct patient, correct extremity, correct procedure, and correct room set-up including presence of all applicable supplies, devices, and drugs. A duplex ultrasound, performed by myself confirmed the location and incompetence of branch saphenous varicosities and their course was marked on the skin together with the dilated tributaries. The extent of treatment of the veins and the associated varicosities was determined through ultrasound mapping. The skin was prepped and then punctured with a butterfly needle and advanced under ultrasound guidance. The Varithena(r) canister was activated and the canister was primed and purged as required in the instructions for use. Varithena(r) was drawn into a sterile syringe. Varithena(r) was slowly administered at 0.5-1.0 cc/second with close observation by ultrasound of its course in the vessels. Total volume utilized was: 13 mL (8 mL within a 4 mm incompetent branch saphenous varicosity of the left midthigh; 5 mL within a 3 mm incompetent branch saphenous varicosity of the right lateral thigh). Following administration of Varithena(r), the leg was elevated and the patient was asked to repeatedly dorsiflex the ankle to limit flow of Varithena(r) into perforating veins. Once appropriate spasm had been confirmed in the treated veins, the vascular catheter was removed from the leg and light pressure was applied over the puncture site for hemostasis The common femoral and deep superficial veins were then evaluated for flow and compressibility prior to dressing placement. The lower extremity was kept elevated at 45 degrees above the horizontal and cording material was applied over the saphenous segments and tributaries to allow for eccentric compression over the target vessels including the targeted saphenous vein(s). A multilayer dressing was applied consisting of foam pads, coban and thigh-high 20-30 mm Hg compression elastic support hose were placed on the patient. The leg was lowered only after compression had been applied and the patient was immediately ambulatory. The patient ambulated 10 minutes under supervision and was without apparent concerns at time of release Post-care instructions include advising patient to keep post-treatment bandages in place and dry for 48 hours, avoid extended periods of inactivity, avoid heavy exercise for one week, wear compression stockings on the treated leg continuously for two weeks, to walk daily for 10 minutes over the next month. The patient was instructed to take an anti-inflammatory medicine as needed and to follow up for color duplex scan of the Saphenous veins, the treated branch saphenous varicosities, the adjacent deep veins, and additional treatment within 7 days. PERSONNEL: Kade White R.N. Dictated by: Hannah Dick M.D. on 08/02/2021 at 15:56 Approved by: Hannah Dick M.D. on 08/02/2021 at 15:59 Normal [facility] VC CONSULT FOLLOWUPon 2020 VC CONSULT FOLLOWUP Patient: CESAR DE LA TORRE Exam Date: 07/12/2021 : 1975 Gender:F Ordering : DR HANNAH DICK M.D. Admission #: [id number] Family : Order #: [id number] CLICK HERE TO VIEW EXAM RADIOLOGY REPORT PROCEDURE: VEIN CENTER CONSULTATION FOLLOWUP VEIN CENTER - OFFICE VISIT FOLLOW UP COMPARISON: VC CONSULT FOLLOWUP, 06/18/2021. PROGRESS NOTES: The patient reports improvement in leg symptoms. There has been interval reduction in varicosities. The patient has followed our recommendations to walk 20-30 minutes once or twice per day since the procedure. Physical exam demonstrates decrease in varicosities of the left leg. Persistent prominent varicosity of the proximal anterior thigh versus soft clot within the vein. Review of the ultrasound performed the same day demonstrates occlusive thrombus extending throughout the treated vein, see separate report, consistent with a successful ablation. No thrombus extending into or beyond the saphenofemoral junction. The patient expressed a desire to proceed with treatment of remaining incompetent branch saphenous varicosities of left leg. The patient was informed that treatment was a process and would require approximately 1 more procedures/sessions. IMPRESSION: 1. Successful ablation of the treated branch saphenous veins 2. Persistent incompetent veins . 3. Patent incompetent proximal anterior thigh varicosity versus soft clot. Ultrasound evaluation of this area should be performed during following erythema and treatment, and considered for treatment. Nurse notes, history and physical were reviewed and confirmed, see attached forms. The nurse was present throughout the physical exam and consultation Dictated by: Hannah Dick M.D. on 07/12/2021 at 16:02 Approved by: Hannah Dick M.D. on 07/12/2021 at 16:[address] [facility] VC EXT VENOUS LT LIMITEDon 1 VC EXT VENOUS LT LIMITED Patient: EB DE LA TORRE Exam Date: 07/12/2021 : 1975 Gender:F Ordering : DR HANNAH DICK M.D. Admission #: [id number] Family : DR BECKY TORRES M.D. Order #: [id number] CLICK HERE TO VIEW EXAM RADIOLOGY REPORT PROCEDURE: VEIN CENTER EXTREMITY VENOUS LEFT LIMITED COMPARISON: VC EXT VENOUS LT LIMITED, 06/18/2021. INDICATIONS: Phlebitis and thrombophlebitis of superficial veins of left lower extremity I80.02 TECHNIQUE: Lower extremity phelps scale and Duplex Doppler evaluation of the deep venous system from the inguinal ligament through the calf veins. FINDINGS: REGION: Left lower extremity. THROMBI: Negative for DVT. Areas treated with Varithena/microfoam is visualized with echogenic thrombus in the lateral knee and medial knee COMPRESSIBILITY: Non-compressible AND partially compressible segments. FLOW: Areas of no flow. OTHER: Anterior mid thigh Varicosity visualized 4.9mm with 2.5s of reflux *Exam performed in accordance with [facility] practice guidelines- Peripheral venous ultrasound, December 15, 2009. CONCLUSION: 1. Successful post ablation occlusion of treated branch saphenous varicosities within left leg. Dictated by: Hannah Dick M.D. on 07/12/2021 at 16:01 Approved by: Hannah Dick M.D. on 07/12/2021 at 16:02 [facility] VC INJ FOAM SCLERO W US MLTI on 07-05-2021 VC INJ FOAM SCLERO W US MLTI Patient: EB DE LA TORRE Exam Date: 07/05/2021 : 1975 Gender:F Ordering : DR BECKY TORRES M.D. Admission #: [id number] Family : Order #: [id number] CLICK HERE TO VIEW EXAM RADIOLOGY REPORT PROCEDURE: VEIN CENTER INJECTION FOAM SCLEROSING SOLUTION WITH ULTRASOUND MULTIPLE VEINS COMPARISON: None. Pre-operative Diagnosis: CEAP class C2 venous insufficiency with pain, tenderness, edema and incompetent branch saphenous vein, chronic venous insufficiency left leg secondary to venous incompetence Post-operative Diagnosis: CEAP class C2 venous insufficiency with pain, tenderness, edema and incompetent branch saphenous vein, chronic venous insufficiency left leg secondary to venous incompetence Procedure Performed: 1. Ultrasound-guided microfoam chemical ablation with Varithena(r) 2. Intraoperative ultrasound guidance Physician: Hannah Dick M.D. Anesthesia: None. Indications for Procedure: 45 year old female. Symptoms including aching, heaviness, leg pain for many years despite conservative medical therapy including medical compression stockings, exercise and analgesics. Prior procedures include: Endovenous laser ablation. 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 Duplex scan showed reflux and enlarged diameters up to 4 mm. The patient has undergone informed consent including management options where the complications of infection, bleeding, pain, and skin injury were discussed. Particular attention was spent discussing thrombus extension and deep vein thrombosis as well as the possibility of pulmonary embolus and treatment with oral or injectable blood thinners. Procedure: The patient walked to the procedure room. All applicable staff donned appropriate apparel. A procedure timeout was performed to confirm correct patient, correct extremity, correct procedure, and correct room set-up including presence of all applicable supplies, devices, and drugs. A duplex ultrasound, performed by myself confirmed the location and incompetence of branch saphenous varicosities and their course was marked on the skin together with the dilated tributaries. The extent of treatment of the veins and the associated varicosities was determined through ultrasound mapping. The skin was prepped and then punctured with a butterfly needle and advanced under ultrasound guidance. The Varithena(r) canister was activated and the canister was primed and purged as required in the instructions for use. Varithena(r) was drawn into a sterile syringe. Varithena(r) was slowly administered at 0.5-1.0 cc/second with close observation by ultrasound of its course in the vessels. Total volume utilized was: 15 mL (6 mL within a 4 mm incompetent varicosity lateral to the knee; 8 mL within the 4 mm incompetent varicosity medial to the knee). Following administration of Varithena(r), the leg was elevated and the patient was asked to repeatedly dorsiflex the ankle to limit flow of Varithena(r) into perforating veins. Once appropriate spasm had been confirmed in the treated veins, the vascular catheter was removed from the leg and light pressure was applied over the puncture site for hemostasis The common femoral and deep superficial veins were then evaluated for flow and compressibility prior to dressing placement. The lower extremity was kept elevated at 45 degrees above the horizontal and cording material was applied over the saphenous segments and tributaries to allow for eccentric compression over the target vessels including the targeted saphenous vein(s). A multilayer dressing was applied consisting of foam pads, coban and thigh-high 20-30 mm Hg compression elastic support hose were placed on the patient. The leg was lowered only after compression had been applied and the patient was immediately ambulatory. The patient ambulated 10 minutes under supervision and was without apparent concerns at time of release Post-care instructions include advising patient to keep post-treatment bandages in place and dry for 48 hours, avoid extended periods of inactivity, avoid heavy exercise for one week, wear compression stockings on the treated leg continuously for two weeks, to walk daily for 10 minutes over the next month. The patient was instructed to take an anti-inflammatory medicine as needed and to follow up for color duplex scan of the Saphenous veins, the treated branch saphenous varicosities, the adjacent deep veins, and additional treatment within 7 days. PERSONNEL: Kade Christopher, R.N. Dictated by: Hannah Dick M.D. on 07/05/2021 at 16:02 Approved by: Hannah Dick M.D. on 07/05/2021 at 16:[address] [facility] VC CONSULT FOLLOWUPon 2020 VC CONSULT FOLLOWUP Patient: CESAR DE LA TORRE Exam Date: 06/18/2021 : 1975 Gender:F Ordering : DR BECKY TORRES M.D. Admission #: [id number] Family : Order #: [id number] CLICK HERE TO VIEW EXAM RADIOLOGY REPORT PROCEDURE: VEIN CENTER CONSULTATION FOLLOWUP VEIN CENTER - OFFICE VISIT FOLLOW UP COMPARISON: VC EXT VENOUS LT LIMITED, 06/18/2021. PROGRESS NOTES: The patient reports no significant problems following intravenous laser ablation of the left anterior accessory saphenous vein. The patient had no significant pain in did not require oral analgesics. The patient did wear her compression stockings as directed. The patient has followed our recommendations to walk 20-30 minutes once or twice per day since the procedure. Physical exam demonstrates no bruising. No erythema or warmth to suggest cellulitis or thrombophlebitis Review of the ultrasound performed the same day demonstrates occlusive thrombus extending throughout proximal left anterior accessory saphenous vein with nonocclusive thrombus more distal to the occlusive thrombus. Flow is identified within the distal straight portion of the anterior accessory saphenous vein. These findings are consistent with the procedure report. No extension into the femoral vein with heat induced thrombus 2 cm from the saphenofemoral junction. The patient expressed a desire to proceed with treatment of incompetent varicose veins with micro foam chemical ablation. IMPRESSION: 1. Successful ablation of the proximal left anterior accessory saphenous vein 2. Persistent left incompetent branch saphenous tributaries / varicose veins PLAN: Micro foam chemical ablation left leg incompetent branch saphenous tributaries / varicose veins Nurse notes, history and physical were reviewed and confirmed, see attached forms. The nurse was present throughout the physical exam and consultation Dictated by: Becky Torres MD on 06/18/2021 at 14:40 Approved by: Becky Torres MD on 06/18/2021 at 14:[address] [facility] VC EXT VENOUS LT LIMITEDon 0 06-18-2021 VC EXT VENOUS LT LIMITED Patient: EB DE LA TORRE Exam Date: 06/18/2021 : 1975 Gender:F Ordering : DR BECKY TORRES M.D. Admission #: [id number] Family : Order #: [id number] CLICK HERE TO VIEW EXAM RADIOLOGY REPORT PROCEDURE: VEIN CENTER EXTREMITY VENOUS LEFT LIMITED COMPARISON: None. INDICATIONS: Phlebitis and thrombophlebitis of superficial veins of left lower extremity I80.02 TECHNIQUE: Lower extremity phelps scale and Duplex Doppler evaluation of the deep venous system from the inguinal ligament through the calf veins. FINDINGS: REGION: Left lower extremity. THROMBI: Negative for DVT. Occlusive heat induced thrombus in the proximal left AASV. Thrombus is 2.0cm from SFJ, some color flow identified in the remainder of the ASSV COMPRESSIBILITY: Non-compressible AND partially compressible segments corresponding to thrombus. FLOW: Absent and decreased flow corresponding to thrombus *Exam performed in accordance with [facility] practice guidelines- Peripheral venous ultrasound, December 15, 2009. CONCLUSION: Successful post ablation occlusion of the proximal left anterior accessory saphenous vein Dictated by: Becky Torres MD on 06/18/2021 at 14:26 Approved by: Becky Torres MD on 06/18/2021 at 14:[address] [facility] VC ENDOVENOUS ABL 1ST V LTon 06-03-2021 VC ENDOVENOUS ABL 1ST V LT Patient: EB DE LA TORRE Exam Date: 06/03/2021 : 1975 Gender:F Ordering : DR BECKY TORRES M.D. Admission #: [id number] Family : Order #: [id number] CLICK HERE TO VIEW EXAM RADIOLOGY REPORT PROCEDURE: VEIN CENTER ENDOVENOUS ABLATION FIRST VEIN LEFT COMPARISON: None. 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 Informed written consent was obtained by and Kade jarrett. Time out procedure was performed. The left lower extremity was prepared and draped in the usual sterile fashion to allow knee flexion in the sterile field. Duplex ultrasound probe was draped in a sterile cover, sterile transmission gel was used. Venous mapping was performed with the areas of dilation and large tributaries marked. The total length of the dilated incompetent anterior accessory saphenous vein was 7 cm. The diameter of the greater saphenous vein ranged from 8 mm. A 30 gauge needle and 1% buffered lidocaine was used to anesthetize the entry site. The anterior accessory saphenous vein was entered percutaneously under direct ultrasound guidance with a micropuncture set. Initial attempt distally caused vasal spasm. Vessel was subsequently entered more proximally. The micro electrode was inserted through the needle and positioned within the proximal anterior accessory saphenous vein allowing for a single in ministry mccall of energy and clotting of the vein. Final position of the fiber was determined by ultrasound guidance and duplex imaging. 1% lidocaine anesthetic was delivered by ultrasound guidance. A final positioning check was made. The energy source was turned on by means of the foot pedal and a single delivery/welder machine operator was created. The total number of Joules delivered was 62. The laser was active for 8 seconds under continuous pulse. Laser start time 11:27 a.m. June 03, 2021. Laser stop time 11:27 a.m. June 03, 2021. A duplex ultrasound revealed compressibility and flow at the saphenofemoral junction immediately after the procedure. Hemostasis at the access site was achieved. The skin incision of the saphenous vein was closed with a 4 x 4. A compression stocking was applied. Postop instructions were given. A follow up appointment was recommended and scheduled. The patient tolerated the procedure well and was discharged in good condition. CONCLUSION: 1. Technically successful endovenous laser ablation of the left anterior accessory saphenous vein. Dictated by: Hannah Dick M.D. on 06/03/2021 at 11:46 Approved by: Hannah Dick M.D. on 06/03/2021 at 11:54 Normal [facility] COMP CONSULTATIONon 05-06 VC COMP CONSULTATION Patient: EB DE LA TORRE Exam Date: 05/06/2021 : 1975 Gender:F Ordering : DR BECKY TORRES M.D. Admission #: [id number] Family : Order #: [id number] CLICK HERE TO VIEW EXAM RADIOLOGY REPORT PROCEDURE: VEIN CENTER CONSULTATION VEIN CENTER - OFFICE VISIT INITIAL COMPARISON: None. PROGRESS NOTES: [age] year old female who presents with a 4 year history of aching, heaviness, leg pain. The patient's left leg symptoms are worse than the right. There has been a progression of symptoms. This increases with prolonged standing. The patient describes an improvement with rest and elevation. The patient denies any signs and symptoms to suggest arterial ischemia. The patient describes a family history of varicose veins in mother. The patient has drinking and smoking history of : None. Patient has a past medical history significant for : None. The patient denies a history of deep venous thrombus or pulmonary embolus. See separate history and physical for medication list. No prior treatment for varicose or spider veins. No current use of compression stockings. After review of nurse notes, history and physical exam I discussed at length the pathophysiology of venous hypertension and possible treatments, therapies and strategies available. We discussed at length the importance of elevating the lower extremities above the level of the heart, increased physical activity and compression stocking use. Ultrasound venous reflux study performed today was discussed at length with the patient. The report demonstrates an incompetent left anterior accessory saphenous vein with multiple incompetent branch saphenous varicosities.. PHYSICAL EXAM: The right leg demonstrates no significant varicosities, no significant spider veins, no ulceration, no edema, no skin discoloration. The left leg demonstrates multiple dilated thigh varicosities, several spider veins, no ulceration, no edema, no skin discoloration. Both thighs, legs and feet were symmetrically warm to the touch. Good posterior tibial and dorsalis pedis pulses were present bilaterally. IMPRESSION: 1. Left lower extremity venous insufficiency 2. Left lower extremity varicose veins 3. No lower extremity subcutaneous edema 4. No flow significant arterial disease 5. CEAP: C2, EC, , IN PLAN: 1. Continued use of compression stockings 2. Elevated legs and increased physical activity symptomatic relief 3. Endovenous laser ablation of left anterior accessory saphenous vein followed by chemical foam ablation of branch saphenous varicosities followed by sclerotherapy of spider veins. Nurse notes, history and physical were reviewed and confirmed, see attached forms. The nurse was present throughout the physical exam and consultation Dictated by: Hannah Dick M.D. on 05/06/2021 at 09:42 Approved by: Hannah Dick M.D. on 05/06/2021 at 09:47 Normal [facility] VC VENOUS REFLUX HALEY LMTon 0 05-06-2021 VC VENOUS REFLUX HALEY LMT Patient: EB DE LA TORRE Exam Date: 05/06/2021 : 1975 Gender:F Ordering : DR BECKY TORRES M.D. Admission #: [id number] Family : Order #: [id number] CLICK HERE TO VIEW EXAM RADIOLOGY REPORT PROCEDURE: VEIN CENTER ULTRASOUND VENOUS REFLUX BILATERAL LIMTED COMPARISON: None. INDICATIONS: Pain co-occurrent and due to varicose veins of bilateral legs I83.813 TECHNIQUE: Duplex imaging of the lower extremity to assess the deep and superficial venous system for the presence of deep or superficial venous incompetence and to document the location and severity of disease. The study includes evaluation of the great saphenous vein (GSV), anterior accessory saphenous vein (AASV) and small saphenous vein (SSV). Patient scanned in reverse Trendelenburg and standing. FINDINGS: RIGHT LOWER EXTREMITY: Saphenofemoral Junction Reflux: Yes 7.2mm 4.4 sec GSV: Diam (mm) Reflux/ Time (sec) Proximal Thigh 5.9 No Mid Thigh 3.0 No Distal Thigh 3.5 No Prox Calf 2.9 No Mid Calf 2.7 No Saphenopopliteal Junction Reflux: 4.5mm No SSV: Proximal Calf 1.9 No Mid Calf 1.8 No AASV: Proximal Thigh 5.0 Yes 3.5 Mid Thigh Distal Thigh Thrombi: No acute or chronic echogenic thrombus seen Compressibility: Normal Flow: Normal Preforator: None visualized Tech Note: Incompetent SFJ/AASV the AASV is visualized approximately 3cm from SFJ. The SPJ/SSV is competent. LEFT LOWER EXTREMITY: Saphenofemoral Junction Reflux: Yes 7.0 mm 4.8 sec GSV: Diam (mm) Reflux/Time (sec) Proximal Thigh 6.5 No Mid Thigh 3.2 No Distal Thigh 3.0 No Prox Calf 3.9 No Mid Calf 2.2 No Saphenopopliteal Junction Relux: 6.3 mm No SSV: Proximal Calf 2.8 No Mid Calf 2.3 No AASV: Proximal Thigh 7.8 Yes 3.0 Mid Thigh Distal Thigh Thrombi: No acute or chronic echogenic thrombus seen Compressibility: Normal Flow: Normal Bus Analyst: None visualized Tech Note: The left SFJ/AASV is incompetent and is visualized approximately 7cm from SFJ. The SPJ/SSV is competent. There is multiple varicosities visualized off the AASV proximal 5.8mm with 2.2s of reflux, 4.2mm with 4.2mm with 4.0s of reflux,distal 3.9mm with 1.4s of reflux CONCLUSION: 1. 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 Treatment with endovenous laser ablation and microfoam chemical ablation should be considered. Dictated by: Hannah Dick M.D. on 05/06/2021 at 09:08 Approved by: Hannah Dick M.D. on 05/06/2021 at 09:11 [facility] Coding Summaryon 07-28-2019 Coding Summary CODING DATE: 019 [facility] STATUS: Home PAYOR: Commercial Insurance ADMIT DX: REASON FOR VISIT DX: R53.83 Other fatigue E07.9 Disorder of thyroid, unspecified FINAL DX: PRINCIPAL: R53.83 Other fatigue SECONDARY: E07.9 Disorder of thyroid, unspecified PYMT PROC APC STAT DESCRIPTION DOCTOR NAME DATE NOTE: The code number assigned matches the documented diagnosis and / or procedure in the patient's chart. However, the narrative phrase printed from the coding software may appear abbreviated, or result in slightly different terminology. Coded By: Romina Courtney Date Saved: 07/28/2019 03:17 pm [facility] Provider [place] 07-27-2019 Provider Orders [id number]#1.00OTGTI [facility] Release of Informationon Release of Information [id number]#1.00OTGTI [facility] T3 Free LCon 07-27-2019 Triiodothyronine,Fr ee,Serum LC 2.4 pg/mL 2.0-4.4 [facility] Comment on above: Result Comment: Perf ormed At: CB [facility] [address] [id number] Yumiko Sheppard PhD Ph:[phone] Performed By: #### 2 [id number], [id number], [id number] ####[facility] (DEFAULT)[address] [place] [address] Free T4on 07-26-2019 Free T4 [Mass/Vol] 0.86 ng/dL Normal 0.61-1.12 [facility] Comment on above: Result Comment: Spec imens that contain high levels of Biotin may cause false high results Performed By: #### 2 [id number], [id number], [id number] ####[facility] (DEFAULT)[address] [place] [address] TSHon 07-26-2019 TSH Qn 2.03 mcIU/mL Normal 0.45-5.33 [facility] Comment on above: Result Comment: Gene ral Population (males and non- females, aged 21-88) 0.45 - 5.33 Females, 1st Trimester 0.05 - 3.70 Females, 2nd Trimester 0.31 - 4.35 Females, 3rd Trimester 0.41 - 5.18 Performed By: #### 2 [id number], [id number], [id number] ####[facility] (DEFAULT)[address] [place] [address] Provider [place] 01-12-2019 Provider Orders [id number]#1.00OTGTIF F [facility] Provider [place] 01-06-2019 Provider Orders [id number]#1.00OTGTIF F [facility] Coding Summaryon 01-05-2019 Coding Summary CODING DATE: 019 [facility] STATUS: Home PAYOR: Commercial Insurance APC DESCRIPTION 5522 Level 2 Imaging without Contrast ADMIT DX: REASON FOR VISIT DX: E06.3 Autoimmune thyroiditis FINAL DX: PRINCIPAL: E06.3 Autoimmune thyroiditis SECONDARY: E55.9 Vitamin D deficiency, unspecified PYMT PROC APC STAT DESCRIPTION DOCTOR NAME DATE NOTE: The code number assigned matches the documented diagnosis and / or procedure in the patient's chart. However, the narrative phrase printed from the coding software may appear abbreviated, or result in slightly different terminology. Coded By: Wendy Palomino Date Saved: 01/05/2019 09:39 am [facility] T3 Free LCon 01-05-2019 Triiodothyronine,Fr ee,Serum LC 3.0 pg/mL 2.0-4.4 [facility] Comment on above: Result Comment: Perf ormed At: [facility] [address] [id number] Yumiko Sheppard PhD Ph:[phone] Performed By: #### 4 [id number], [id number] #### [facility] (DEFAULT) [address] [place] [address] Free T4on 01-04-2019 Free T4 [Mass/Vol] 0.83 ng/dL Normal 0.61-1.12 [facility] Comment on above: Result Comment: Spec imens that contain high levels of Biotin may cause false high results Performed By: #### 4 [id number], [id number] #### [facility] (DEFAULT) [address] [place] [address]233 TSHon 01-04-2019 TSH Qn 2.15 mcIU/mL Normal 0.45-5.33 [facility] Comment on above: Result Comment: Gene ral Population (males and non- females, aged 21-88) 0.45 - 5.33 Females, 1st Trimester 0.05 - 3.70 Females, 2nd Trimester 0.31 - 4.35 Females, 3rd Trimester 0.41 - 5.18 Performed By: #### 4 [id number], [id number] #### [facility] (DEFAULT) [address] [place] [address] US Thyroidon 01-04-2019 US Thyroid EXAM: US THYROID CLINICAL DATA: Goiter. COMPARISON: None. FINDINGS: A thyroid ultrasound study was performed. The right lobe measures 3.8 x 1.3 x 1.2 cm and the left lobe measures 3.6 x 1.1 x 1.4 cm in longitudinal, AP and transverse dimensions. The isthmus measures 0.22 cm in thickness which is within normal limits. The gland is within normal limits for size. The echotexture of the thyroid is grossly homogeneous. No evidence of a solid or cystic mass is identified. There is mild to moderate increased vascularity seen in the gland bilaterally, nonspecific, considerations may include Casey's thyroiditis. IMPRESSION: The thyroid gland is within normal limits for size without an obvious focal mass. There is mild to moderate increased vascularity in the gland, nonspecific, considerations may include Casey's thyroiditis. Final Dictated by: Christopher Campos MD Dictated DT/TM: 01/04/19 3:04 Signed (Electronic Signature): Christopher Campos MD 01/04/19 3:38 pm Technologist: Jalyn ELY [facility] Vit D25 OHon 01-04-2019 Vitamin D 25 OH 26 ng/mL [facility] Comment on above: Result Comment: In , the Clinical Guidelines Subcommittee of the Endocrine Society Task Force established the guidelines below for recommended serum 25(OH) vitamin D levels. Vitamin D Status 25 (OH) Vitamin D Concentration Range (ng/mL) 25 (OH) Vitamin D Concentration Range (nmol/L) Deficient < 20 < 50 Insufficient 20 to < 30 50 to < 75 Sufficient 30 to 100 75 to 250 Upper Safety Limit >100 >250 Reference Alyse PERES et al. Evaluation, Treatment, and Prevention of Vitamin D Deficiency: An Endocrine Society Clinical Practice Guideline, J Clin Endocrinol Metab 2011; 96 (7): 5696-8412. Performed By: #### 4 [id number], [id number] #### [facility] (DEFAULT) [address] [place] [address] Coding Summaryon 12-09-2018 Coding Summary CODING DATE: 019 [facility] STATUS: Home PAYOR: Commercial Insurance ADMIT DX: REASON FOR VISIT DX: E03.9 Hypothyroidism, unspecified FINAL DX: PRINCIPAL: E03.9 Hypothyroidism, unspecified SECONDARY: PROCEDURES DOCTOR NAME DATE NOTE: The code number assigned matches the documented diagnosis and / or procedure in the patient's chart. However, the narrative phrase printed from the coding software may appear abbreviated, or result in slightly different terminology. Coded By: Wendy Palomino Date Saved: 12/09/2018 01:01 pm [facility] Provider Ord[place] 12-08-2018 Provider Orders [id number]#1.00OTGTIF F [facility] T3 Free LCon 12-08-2018 Triiodothyronine,Fr ee,Serum LC 2.5 pg/mL 2.0-4.4 [facility] Comment on above: Result Comment: Perf ormed At: [facility] [address] [id number] Yumiko Sheppard PhD Ph:[phone] Performed By: #### 2 [id number], [id number], [id number] #### [facility] (DEFAULT) [address] [place] [address] Free T4on 12-07-2018 Free T4 [Mass/Vol] 0.84 ng/dL Normal 0.61-1.12 [facility] Comment on above: Result Comment: Spec imens that contain high levels of Biotin may cause false high results Performed By: #### 2 [id number], [id number], [id number] #### [facility] (DEFAULT) [address] [place] [address]55 TSHon 12-07-2018 TSH Qn 2.68 mcIU/mL Normal 0.45-5.33 [facility] Comment on above: Result Comment: Gene ral Population (males and non- females, aged 21-88) 0.45 - 5.33 Females, 1st Trimester 0.05 - 3.70 Females, 2nd Trimester 0.31 - 4.35 Females, 3rd Trimester 0.41 - 5.18 Performed By: #### 2 [id number], [id number], [id number] #### [facility] (DEFAULT) [address] [place] [address] Coding Summaryon 08-13-2018 Coding Summary CODING DATE: 018 [facility] STATUS: Home PAYOR: Commercial Insurance ADMIT DX: REASON FOR VISIT DX: R09.89 Other specified symptoms and signs involving the circulatory and respiratory systems FINAL DX: PRINCIPAL: J35.8 Other chronic diseases of tonsils and adenoids SECONDARY: PROCEDURES DOCTOR NAME DATE NOTE: The code number assigned matches the documented diagnosis and / or procedure in the patient's chart. However, the narrative phrase printed from the coding software may appear abbreviated, or result in slightly different terminology. Coded By: Wendy Palomino Date Saved: 08/13/2018 08:53 am Normal [facility] C Throaton 08-09-2018 C Throat Ordered by Discern. Normal throat gene isolated No pathogens isolated Normal [facility] Comment on above: Performed By: #### 4 [id number], [id number] #### [facility] (DEFAULT) [address] [place] [address] ED Clinical Summaryon 2017 ED Clinical Summary [facility] ? Urgent Care [address] [place] [address] Clinical Summary PERSON INFORMATION Name: EB WILCOX Age: 43 Years Sex: FEMALE : [birth year] MRN: Acct#: Visit Reason: UC - Sore Throat; C/O WHITE SPOT IN THROAT Arrival: 08/07/18 14:50:00 Discharge: 08/07/18 15:27:00 LOS: 000 00:37 Check In: 08/07/18 14:50:00 Checkout: 08/07/18 15:27:00 Address: [address] [place] [address] PCP: Provider, None PROVIDER INFORMATION Provider Role Assigned Unassigned Juan Miguel Heard ED PA 08/07/18 14:55:17 Jose Carlos WHITE, Spike ED Nurse 08/07/18 15:12:40 VITALS INFORMATION Vital Sign Triage Latest Temperature Tympanic Temperature Temporal Artery Pulse Rate 58 bpm 58 bpm O2 Sat 98 % 98 % Respiratory Rate 18 br/min 18 br/min Blood Pressure 120 mmHg/70 mmHg 120 mmHg/70 mmHg MEDICAL INFORMATION Medications Given: Allergy Information: No Known Medication Allergies PHYSICIAN DOCUMENTATION DISCHARGE INFORMATION: Discharge Disposition: Home Discharge Location: Home PATIENT EDUCATION INFORMATION Instructions: Rapid Strep Test Follow-Up: With: Address: When: None Provider Comments: Here exam is consistent with what is called a tonsilolith This si an outgrowth of bacteria that can cause bad breath This stays softs at first then hardens to a stone Gargling with original listerine or chlorhexidine mouthwash can prevent this bacteria from building up Your rapid strep test was negative This will be sent for culture, results will return in the next 24-36 hours If the result returns as positive we will call you and provide you with a prescription for an antibiotic Alternate tylenol and motrin for any pain or fevers Stay hydrated, drink plenty of fluids Follow-up with primary care provider in 3-5 days sooner if worse. DIAGNOSIS: Tonsillolith Patient Understands: Yes - Patient/family/caregiver verbalizes understanding of instructions given Comment: [facility] ED Note - Physicianon 2017 ED Note - Physician Patient: EB WILCOX Age: 43 years Sex: FEMALE : [birth year] Associated Diagnoses: Tonsillolith Author: Juan Miguel Heard Basic Information Time seen: Date & time 08/07/18 14:59:00. History source: Patient. History limitation: None. History of Present Illness Patient is a 43-year-old female complaint of white spot in throat . PT states not having any pain, just concerned for what this is. PT is smiling, happy, talking on cell phone, very pleasant. No other complaints or concerns. Patient with no known medication allergies. Review of Systems Constitutional symptoms: Negative except as documented in HPI. ENMT symptoms: Negative except as documented in HPI. Additional review of systems information: All other systems reviewed and otherwise negative. Health Status Allergies: Allergic Reactions (Selected) No Known Medication Allergies. Past Medical/ Family/ Social History Medical history: No active or resolved past medical history items have been selected or recorded.. Surgical history: No active procedure history items have been selected or recorded.. Family history: No family history items have been selected or recorded.. Social history: Social & Psychosocial Habits No Data Available . Problem list: No qualifying data available . Physical Examination Vital Signs Vital Signs 08/07/18 14:52 EST Temperature Temporal 37.4 DegC Peripheral Pulse Rate 58 bpm LOW Respiratory Rate 18 br/min Systolic Blood Pressure 120 mmHg Diastolic Blood Pressure 70 mmHg SpO2 98 % . General: Alert, no acute distress. Skin: Warm, dry. Head: Normocephalic, atraumatic. Eye: Normal conjunctiva. Ears, nose, mouth and throat: pt with large white cheese like exudate to right side of throat which was swabbed, was removed via the swab. Respiratory: Lungs are clear to auscultation, respirations are non-labored, breath sounds are equal. Cardiovascular: Regular rate and rhythm. Back: Normal range of motion. Lymphatics: No lymphadenopathy. Psychiatric: Cooperative, appropriate mood & affect. Medical Decision Making Differential Diagnosis: Viral pharyngitis, streptococcal pharyngitis, tonsilolith. Orders Launch Orders Laboratory: Rapid Strep (Order): Throat, Collected, 08/07/18 15:02 EST, Stat collect, Nurse collect. Physical exam findings are consistent with a early tonsilolith, this is in the early stages. Was removed with the strep swab during the swab. Rapid strep was negative. Patient denied any type of throat pain at this time. Was recommended to use original of strain or chlorhexidine mouthwash to help prevent a spectator going up. Patient in agreement with treatment plan. Impression and Plan Diagnosis Tonsillolith ([id number] J35.8, Discharge, Medical) Plan Patient was given the following educational materials: Rapid Strep Test. Follow up with: None Provider Here exam is consistent with what is called a tonsilolith This si an outgrowth of bacteria that can cause bad breath This stays softs at first then hardens to a stone Gargling with original listerine or chlorhexidine mouthwash can prevent this bacteria from building up Your rapid strep test was negative This will be sent for culture, results will return in the next 24-36 hours If the result returns as positive we will call you and provide you with a prescription for an antibiotic Alternate tylenol and motrin for any pain or fevers Stay hydrated, drink plenty of fluids Follow-up with primary care provider in 3-5 days sooner if worse. . Counseled: Patient, Regarding diagnosis, Regarding diagnostic results, Regarding treatment plan, Regarding prescription, Patient indicated understanding of instructions. [Electronically Signed on: 08/07/2018 17:00 EST] Juan Miguel Heard [Verified on: 08/07/2018 17:00 EST] Juan Miguel Heard [facility] ED Patient Summaryon 018 ED Patient Summary [facility] ? Urgent Care [address] [place] [address] PATIENT DISCHARGE INSTRUCTIONS Patient Information Name: EB WILCOX Age: 43 Years Date of : [birth year] [facility]: [id number] Reason For Visit: UC - Sore Throat; C/O WHITE SPOT IN THROAT Arrival Time: 08/07/18 14:50:00 Primary Care Physician: Allyn, None Attending Physician: Juan Miguel Heard Comment: Patient Education With: Address: When: None Provider Comments: Here exam is consistent with what is called a tonsilolith This si an outgrowth of bacteria that can cause bad breath This stays softs at first then hardens to a stone Gargling with original listerine or chlorhexidine mouthwash can prevent this bacteria from building up Your rapid strep test was negative This will be sent for culture, results will return in the next 24-36 hours If the result returns as positive we will call you and provide you with a prescription for an antibiotic Alternate tylenol and motrin for any pain or fevers Stay hydrated, drink plenty of fluids Follow-up with primary care provider in 3-5 days sooner if worse. Rapid Strep Test Strep throat is a bacterial infection caused by the bacteria Streptococcus pyogenes. A rapid strep test is the quickest way to check if these bacteria are causing your sore throat. The test can be done at your health care provider's office. Results are usually ready in 10?20 minutes. You may have this test if you have symptoms of strep throat. These include: ? A red throat with yellow or white spots. ? Neck swelling and tenderness. ? Fever. ? Loss of appetite. ? Trouble breathing or swallowing. ? Rash. ? Dehydration. This test requires a sample of fluid from the back of your throat and tonsils. Your health care provider may hold down your tongue with a tongue depressor and use a swab to collect the sample. Your health care provider may collect a second sample at the same time. The second sample may be used for a throat culture. In a culture test, the sample is combined with a substance that encourages bacteria to grow. It takes longer to get the results of the throat culture test, but they are more accurate. They can confirm the results from a rapid strep test, or show that those results were wrong. What do the results mean? It is your responsibility to obtain your test results. Ask the lab or department performing the test when and how you will get your results. Contact your health care provider to discuss any questions you have about your results. The results of the rapid strep test will be negative or positive. Meaning of Negative Test Results If the result of your rapid strep test is negative, then it means: ? It is likely that you do not have strep throat. ? A virus may be causing your sore throat. Your health care provider may do a throat culture to confirm the results of the rapid strep test. The throat culture can also identify the different strains of strep bacteria. Meaning of Positive Test Results If the result of your rapid strep test is positive, then it means: ? It is likely that you do have strep throat. ? You may have to take antibiotics. Your health care provider may do a throat culture to confirm the results of the rapid strep test. Strep throat usually requires a course of antibiotics. Talk with your health care provider to discuss your results, treatment options, and if necessary, the need for more tests. Talk with your health care provider if you have any questions about your results. This information is not intended to replace advice given to you by your health care provider. Make sure you discuss any questions you have with your health care provider. Document Released: 10/15/2005 Document Revised: 05/13/2017 Document Reviewed: 12/14/2014 [employer] Patient Education ? 2017 [employer] Medication Information: The exam and treatment you received today in the [facility] Emergency Department were for an urgent problem and are not intended as complete care. It is important for you to follow up with a doctor, nurse practitioner, or physician?s ob gyn physician assistant for ongoing care. If your symptoms become worse or you do not improve as expected and you are unable to reach your usual health care provider, you should return to the Emergency Department, we are available 24 hours a day. For those patients who have received Radiology results, the interpretation of your X-ray as given to you by our Emergency Department physician is only a preliminary report. The Radiologist will review your films and if there is a change in the diagnosis you will be notified by phone. Please make sure you have provided a working phone number so we can reach you if necessary. In the event that you had a lab culture while you were a patient in the Emergency Department, you will be notified by phone if there is a need to change your antibiotic. Please make sure you have provided a working phone number so we can reach you if necessary. [facility] Emergency Department has provided you with a complete list of medications post discharge. Please inform your meter tester primary/provider of your visit and for further instruction on these medications. Any specific questions regarding your chronic medications and dosages should be discussed with your primary care physician(s) and/or pharmacist. New Medications Other Medications thyroid desiccated ([place] Thyroid 60 mg oral tablet) 1 tab(s) Oral every day. Visit Information Visit Diagnosis: Diagnoses This Visit Tonsillolith (J35.8) UC - Sore Throat ([id number]) If you received any narcotics, sedation, or any other medication that causes drowsiness for the next 24 hours, unless otherwise directed: ? Do not drive a car. ? Do not operate machinery such as power tools, lawn mowers, drills, sewing machines, or stoves ? Avoid alcoholic beverages and drugs for allergies, nerves, or sleep ? Do not make important personal or business decisions or sign any legal documents Reason for Visit: noticed white spot on throat, concerned because she is a barrow Allergies: Substance Reaction Symptoms Type Comments No Known Medication Allergies Drug Vital Signs: Vitals and Measurements this Visit (last charted value for your 08/07/2018 visit) Vital Signs This Visit Temperature Temporal: 37.4 DegC Peripheral Pulse Rate: 58 bpm Respiratory Rate: 18 br/min Systolic Blood Pressure: 120 mmHg Diastolic Blood Pressure: 70 mmHg SpO2: 98 % Problems List: Problem Onset Comments No Problems found Major Tests and Procedures: The following procedures and tests were performed during your ED visit. Laboratory Rapid Strep Throat, Collected, 08/07/18 15:02:00 EST, Stat collect, Stop date 08/07/18 15:02:00 EST, Nurse collect Throat Culture Throat, Collected, 08/07/18 15:02:00 EST, Stat collect, Stop date 08/07/18 15:02:00 EST, Nurse collect, [id number] Radiology Cardiology Viruses or Bacteria What?s got you sick? Antibiotics only treat bacterial infections. Viral illnesses cannot be treated with antibiotics. When an antibiotic is not prescribed, ask your healthcare professional for tips on how to relieve symptoms and feel better. Usual Cause Illness Viruses Bacteria Antibiotic Needed Cold/Runny Nose NO Bronchitis/Chest Cold (in otherwise healthy children and adults) NO Whooping Cough Yes Flu NO Strep Throat Yes Sore Throat (except strep) NO Fluid in the middle ear (otitis media with effusion) NO Urinary Tract Infection Yes Antibiotics Aren?t Always the Answer www.cdc.gov/getsmart GET SMART Know When Antibiotics Work U.S. Department of Health and Human Services Centers for Disease Control and Prevention May 2014 Normal [facility] Strep Aon 08-07-2018 Strep A Negative Normal Negative [facility] Comment on above: Performed By: #### [id number] #### [facility] (DEFAULT) [address] [place] [id number] Strep procedure control Pass [facility] Comment on above: Performed By: #### [id number] #### [facility] (DEFAULT) [address] [place] [id number] Urgent Care [place] 018 Urgent Care Record [facility] ? Urgent Care [address] [place] [address] PATIENT DISCHARGE INSTRUCTIONS Patient Information Name: EB WILCOX Age: 43 Years Date of : [birth year] Reason For Visit: UC - Sore Throat; C/O WHITE SPOT IN THROAT Arrival Time: 08/07/18 14:50:00 Primary Care Physician: Provider, None Attending Physician: Juan Miguel Heard Comment: Visit Diagnosis: Diagnoses This Visit Tonsillolith (J35.8) UC - Sore Throat ([id number]) If you received any narcotics, sedation, or any other medication that causes drowsiness for the next 24 hours, unless otherwise directed: ? Do not drive a car. ? Do not operate machinery such as power tools, lawn mowers, drills, sewing machines, or stoves ? Avoid alcoholic beverages and drugs for allergies, nerves, or sleep ? Do not make important personal or business decisions or sign any legal documents With: Address: When: None Provider Comments: Here exam is consistent with what is called a tonsilolith This si an outgrowth of bacteria that can cause bad breath This stays softs at first then hardens to a stone Gargling with original listerine or chlorhexidine mouthwash can prevent this bacteria from building up Your rapid strep test was negative This will be sent for culture, results will return in the next 24-36 hours If the result returns as positive we will call you and provide you with a prescription for an antibiotic Alternate tylenol and motrin for any pain or fevers Stay hydrated, drink plenty of fluids Follow-up with primary care provider in 3-5 days sooner if worse. Medication Information: The exam and treatment you received today in the [facility] Urgent Care were for an urgent problem and are not intended as complete care. It is important for you to follow up with a doctor, nurse practitioner, or physician?s ob gyn physician assistant for ongoing care. If your symptoms become worse or you do not improve as expected and you are unable to reach your usual health care provider, you should return to the Emergency Department, we are available 24 hours a day. For those patients who have received Radiology results, the interpretation of your X-ray as given to you by our Urgent Care physician is only a preliminary report. The Radiologist will review your films and if there is a change in the diagnosis you will be notified by phone. Please make sure you have provided a working phone number so we can reach you if necessary. In the event that you had a lab culture while you were a patient in the Urgent Care, you will be notified by phone if there is a need to change your antibiotic. Please make sure you have provided a working phone number so we can reach you if necessary. [facility] Ur[facility] Care has provided you with a complete list of medications post discharge. Please inform your meter tester primary/provider of your visit and for further instruction on these medications. Any specific questions regarding your chronic medications and dosages should be discussed with your primary care physician(s) and/or pharmacist. New Medications Other Medications thyroid desiccated ([place] Thyroid 60 mg oral tablet) 1 tab(s) Oral every day. Visit Information Allergies: Substance Reaction Symptoms Type Comments No Known Medication Allergies Drug Vital Signs: Vitals and Measurements this Visit (last charted value for your 08/07/2018 visit) Vital Signs This Visit Temperature Temporal: 37.4 DegC Peripheral Pulse Rate: 58 bpm Respiratory Rate: 18 br/min Systolic Blood Pressure: 120 mmHg Diastolic Blood Pressure: 70 mmHg SpO2: 98 % Problems List: Problem Onset Comments No Problems found Patient Education Rapid Strep Test Strep throat is a bacterial infection caused by the bacteria Streptococcus pyogenes. A rapid strep test is the quickest way to check if these bacteria are causing your sore throat. The test can be done at your health care provider's office. Results are usually ready in 10?20 minutes. You may have this test if you have symptoms of strep throat. These include: ? A red throat with yellow or white spots. ? Neck swelling and tenderness. ? Fever. ? Loss of appetite. ? Trouble breathing or swallowing. ? Rash. ? Dehydration. This test requires a sample of fluid from the back of your throat and tonsils. Your health care provider may hold down your tongue with a tongue depressor and use a swab to collect the sample. Your health care provider may collect a second sample at the same time. The second sample may be used for a throat culture. In a culture test, the sample is combined with a substance that encourages bacteria to grow. It takes longer to get the results of the throat culture test, but they are more accurate. They can confirm the results from a rapid strep test, or show that those results were wrong. What do the results mean? It is your responsibility to obtain your test results. Ask the lab or department performing the test when and how you will get your results. Contact your health care provider to discuss any questions you have about your results. The results of the rapid strep test will be negative or positive. Meaning of Negative Test Results If the result of your rapid strep test is negative, then it means: ? It is likely that you do not have strep throat. ? A virus may be causing your sore throat. Your health care provider may do a throat culture to confirm the results of the rapid strep test. The throat culture can also identify the different strains of strep bacteria. Meaning of Positive Test Results If the result of your rapid strep test is positive, then it means: ? It is likely that you do have strep throat. ? You may have to take antibiotics. Your health care provider may do a throat culture to confirm the results of the rapid strep test. Strep throat usually requires a course of antibiotics. Talk with your health care provider to discuss your results, treatment options, and if necessary, the need for more tests. Talk with your health care provider if you have any questions about your results. This information is not intended to replace advice given to you by your health care provider. Make sure you discuss any questions you have with your health care provider. Document Released: 10/15/2005 Document Revised: 05/13/2017 Document Reviewed: 12/14/2014 [employer] Patient Education ? 2017 [employer] Viruses or Bacteria What?s got you sick? Antibiotics only treat bacterial infections. Viral illnesses cannot be treated with antibiotics. When an antibiotic is not prescribed, ask your healthcare professional for tips on how to relieve symptoms and feel better. Usual Cause Illness Viruses Bacteria Antibiotic Needed Cold/Runny Nose NO Bronchitis/Chest Cold (in otherwise healthy children and adults) NO Whooping Cough Yes Flu NO Strep Throat Yes Sore Throat (except strep) NO Fluid in the middle ear (otitis media with effusion) NO Urinary Tract Infection Yes Antibiotics Aren?t Always the Answer www.cdc.gov/getsmart GET SMART Know When Antibiotics Work U.S. Department of Health and Human Services Centers for Disease Control and Prevention May 2014 [facility] CNCO Letter TextToll Free : [phone].[facility]/cancer [facility] - [address] [address]Zexog: [phone]: [address] [address]Smyom: [phone]: [place] [id number] [place], [place] [address]Kukpw: [phone]: Cornelius Palomino M.D., Roni Cardenas M.D.Abdulaziz Mendoza M.D.Slava Carrillo D.O..Gustavo Gottlieb M.D.Jennifer Mcdonald M.D. Kaur Castrejon M.D..04/15/2017Eb De La Torre [phone] [facility] [id number] Bhavik GambinoPR OB/GYNDear Eb Boone's lupus anticoagulant panel was negative. She has no evidence of theantiphospholipid antibody syndrome/lupus anticoagulant. I have given thepatient reassurance with the lab results. Thanks Dr Gonzalez, and kindestregards,Sincerely, Maeve Cardenas MD(signed electronically to expedite mailing) Normal [facility] APTTon 04-13-2017 aPTT 29.7 s Normal 23.0-32.4 [facility] Comment on above: Result Comment: The APTT can be used to monitor the therapeutic effect of heparin.The recommended therapeutic range for treatment of venous and arterial thrombosis with intravenous unfractionated heparin is 60 to 85 seconds, which corresponds to a heparin anti Xa activity level of 0.3 to 0.7 IU/mL.In patients with concomitant therapy with thrombolytic agents and/or platelet glycoprotein IIb/IIIa antagonists, the recommended therapeutic range is 53 to 71 seconds, corresponding to a heparin anti Xa activity level of 0.2 to 0.5 IU/mL.The APTT therapeutic range has been determined for the current lot of laboratory APTT reagent. Performed By: #### P T, PTT ####[address] [phone] + CBCon 04-13-20 17 Absol Gran Count 4.44 k/uL Normal 1.45-7.50 [facility] Comment on above: Performed By: #### P T, PTT ####[address] [phone] Erythrocyte distribution width Auto Ratio (RBC) 12.5 % Normal 11.5-15.0 [facility] Comment on above: Performed By: #### P T, PTT ####[address] [phone] Erythrocytes (RBC) 4.05 10*6/uL Normal 3.90-5.20 [facility] Comment on above: Performed By: #### P T, PTT ####[address] [phone] Hematocrit (HCT) 38.2 % Normal 36.0-46.0 [facility] Comment on above: Performed By: #### P T, PTT ####[place] [address] [address], [place] [phone] Hemoglobin mass conc (Bld) 13.2 g/dL Normal 11.5-15.5 [facility] Comment on above: Performed By: #### P T, PTT ####[place] [address] [address], [place] [phone] MCH 32.6 pG Normal 26.0-34.0 [facility] Comment on above: Performed By: #### P T, PTT ####[place] [address] [address], [place] [phone] MCHC mass conc (RBC) 34.6 g/dL Normal 30.5-36.0 [facility] Comment on above: Performed By: #### P T, PTT ####[place] [address] [address], [place] [phone] MCV 94.3 fL Normal 80.0-100.0 [facility] Comment on above: Performed By: #### P T, PTT ####[place] [address] [address], [place] [phone] Platelet mean volume (PMV) 10.0 fL Normal 9.0-12.7 [facility] Comment on above: Performed By: #### P T, PTT ####[place] [address] [address], [place] [phone] Platelets 252 10*3/uL Normal 150-400 [facility] Comment on above: Performed By: #### P T, PTT ####[place] [address] [address], [place] [phone] WBC (Leukocytes) 6.97 10*3/uL Normal 3.70-11.00 [facility] Comment on above: Performed By: #### P T, PTT ####[place] [address] [address], [place] [phone] CNOVSPon 04-13-2017 OVSP Visit (SP) Office ([place]) EB DE LA TORRE ([id number]) 1975 [facility] Time Provider Department04/13/17 4:00 PM MAEVE CARDENAS During your visit today, we recorded the following information about you: Temperature Pulse Respiration Blood pressure 97.2 degrees 68/minute 18/minute 123/81 Weight Height 76.6 kg 1.683 London Cardenas MD 04/13/2017 4:34 PM Nela De La Torre is a 41 year old female who presents in consultation today 04/13/17just under 8 weeks with abnormal lab values. She has had onemiscarriage. No history of blood clotting, DVT or thromboembolism. She doeshave a history of thyroid abnormality. A lupus anticoagulant panel was donewith the PTT slightly elevated at 42. DRVVT screen was normal at 38. Thetest result was that a lupus anticoagulant was not detected. She is presentingfor evaluation. She has never had any history of clotting, DVT orthromboembolism. He is at one miscarriage.PAST MEDICAL HISTORYDiagnosis Date- Abnormal laboratory test PTTPAST SURGICAL HISTORYNo date: BREAST [id number]/09/2016: DANDamp;C, DIAG AND/OR THERAPEUTIC Comment: Dilation ANDamp; curettageSocial HistorySubstance Use Topics- Smoking status: Never Smoker- Smokeless tobacco: Never Used- Alcohol use NoFAMILY HISTORY Thyroid Mother Cancer Father Comment: Salivary gland Cancer Maternal Grandmother Comment: Lung Cancer Maternal Grandfather Comment: Lung Cancer Paternal Grandmother Comment: Colon Cancer Paternal Uncle Comment: Colon Breast Cancer Paternal Aunt Breast Cancer Maternal AuntCurrent Outpatient Prescriptions: VIT 91/IRON/FOLIC/DHA ( + DHA ORAL) Take by mouth.PROGESTERONE MISCARMOUR THYROID 60 mg tab Take 60 mg by mouth once daily.No current facility-administered medications for this visit.ALLERGIESNo Known AllergiesREVIEW OF SYSTEMSGENERAL: No weight loss, malaise or fevers., SEE HPIHEENT: Negative for frequent or significant headaches, No changes in hearing orvision, no nose bleeds or other nasal problemsNECK: Negative for lumps, goiter, pain and significant neck swellingRESPIRATORY: Negative for cough, wheezing or shortness of breath.CARDIOVASCULAR: Negative for chest pain, leg swelling or palpitations.GI: Negative for abdominal discomfort, blood in stools or black stools orchange in bowel habitsMUSCULOSKELETAL: Negative for joint pain or swelling, back pain or muscle pain.SKIN: Negative for lesions, rash, and itching.PSYCH: Negative for sleep disturbance, mood disorder and recent psychosocialstressors.HEM ATOLOGY/LYMPHOLOGY: Negative for prolonged bleeding, bruising easily orswollen nodes.NEURO: No history of headaches, syncope, paralysis, seizures or tremorsAll other reviewed and negative other than HPI.PHYSICAL EXAM:BP 123/81 Pulse 68 Temp 36.2 ?C (97.2 ?F) (Temporal Artery) Resp 18 Ht168.3 cm (5' 6.25ANDquot;) Wt 76.6 kg (168 lb 14.4 oz) LMP (LMP Unknown) BMI 27.06 kg/p2Igrkkvx Appearance: alert and oriented, appearing in no acute distressSkin: skin color, texture, turgor normal, no suspicious rashes or lesions.Head: normal.Eyes: Anicteric sclera. Pupils are equally round. Extraocular movements areintact. .Ears: external ears normalNeck: Supple, no adenopathy; thyroid symmetric, normal size, no bruits.Back:no pain with ambulationLungs: good air exchange overallHeart: RRRAbdomen:Extremities: Extremities normal.Musculoskeletal: Spine range of motion normal. Muscular strength intact.Peripheral Pulses: Normal.Neurologic: Gait normal. No gross cerebellar defectsPsychiatric: the patient has an appropriate affectNo results found for: HB, HCT, WBC, PLTASSESSMENT/PLAN:1. Less than 8 weeks gestation of - ICD9: V22.2, ICD10: Z3A.01I've given her reassurance that there does not appear to be any evidence of apositive lupus anticoagulant or circulating inhibitor. I will repeat the bloodtests and call her with the results. In my opinion, she does not have theantiphospholipid antibody syndrome or lupus anticoagulant syndrome. Secondly,she does not have the clinical profile of someone with a clinically significantlupus anticoagulant or circulating inhibitor. She has had one miscarriage inthe past. We will check her lab values and I will call her next week with theresults.- + DHA ORAL- PROGESTERONE MISC- ABS GRAN CT + CBC- PROTHROMBIN TIME/PT- ACTIVATED PTT- LUPUS ANTICOAG Laura Lopez Provider: BHAVIK GONZALEZ [[id number]]Allergies As of Date: 04/13/2017(No Known Allergies)Date Reviewed: 04/13/2017Reviewed by: Bren Berry - Fully AssessedPrimary Visit Diagnosis:Less than 8 weeks gestation of [Z3A.01]Order(s):ABS GRAN CT + CBC [SQAGCCBC] Order #: [id number] FUTURE PROTHROMBIN TIME/PT [SQPT] Order #: [id number] FUTURE ACTIVATED PTT [SQPTT] Order #: [id number] FUTURE LUPUS ANTICOAG PL [SQLUPUSP] Order #: [id number] FUTUREPrescriptions as of 04/13/2017 Sig: + DHA ORAL Take by mouth. PROGESTERONE MISC ARMOUR THYROID 60 MG TABLET Take 60 mg by mouth once aliyah*Problem List As Of Date 04/13/2017 Noted Resolved Less than 8 weeks gestation of [Z3A.0*INVALID FOR*Encounter Status:Closed by MAEVE CARDENAS MD on 04/13/17 Normal [facility] Lupus Anticoag Panelon 04-13 aPTT 29.2 s Normal <33.5 [facility] Comment on above: Performed By: #### L UPUSP ####[facility] [address] [place], [place] [phone] aPTT 29.9 s Normal <37.3 [facility] Comment on above: Performed By: #### L UPUSP ####[facility] [address] [place], [place] [phone] aPTT 33.1 s Normal 24.4-33.4 [facility] Comment on above: Performed By: #### L UPUSP ####[facility] [place], [place] [phone] aPTT 28.6 s Normal 23.0-32.4 [facility] Comment on above: Result Comment: The APTT can be used to monitor the therapeutic effect of heparin.The recommended therapeutic range for treatment of venous and arterial thrombosis with intravenous unfractionated heparin is 60 to 85 seconds, which corresponds to a heparin anti Xa activity level of 0.3 to 0.7 IU/mL.In patients with concomitant therapy with thrombolytic agents and/or platelet glycoprotein IIb/IIIa antagonists, the recommended therapeutic range is 53 to 71 seconds, corresponding to a heparin anti Xa activity level of 0.2 to 0.5 IU/mL.The APTT therapeutic range has been determined for the current lot of laboratory APTT reagent. Performed By: #### L UPUSP ####[address] [phone] Beta2 Glycoprot IgG <9 Normal <20 [facility] Comment on above: Result Comment: < 20 SGU [id number] SGU Low Positive> 80 SGU High PositiveThese results were obtained with the [employer] QUANTA Lite B2 GPI IgG MATTIE. B2 GPI IgG values obtained with different manufacturers' assay methods may not be used interchangeably. The magnitude of the reported IgG levels cannot be correlated to an endpoint titer. Performed By: #### L UPUSP ####[address] [phone] Beta2 Glycoprot IgM <9 Normal <20 [facility] Comment on above: Result Comment: < 20 SMU Uzgikmrn15-18 SMU Low Positive> 80 SMU High PositiveThese results were obtained with the [employer] QUANTA Lite B2 GPI IgM MATTIE. B2 GPI IgM values obtained with different manufacturers' assay methods may not be used interchangeably. The magnitude of the reported IgM levels cannot be correlated to an endpoint titer. Performed By: #### L UPUSP ####[place] [address] [place], [place] [phone] DRVVT 1:1 Mix 37.4 sec Normal 32.7-46.7 [facility] Comment on above: Performed By: #### L UPUSP ####[address], [place] [phone] DRVVT Confirm Ratio 1.07 Normal <1.21 [facility] Comment on above: Performed By: #### L UPUSP ####[address] [place] [phone] DRVVT Screen 35.0 sec Normal 32.7-46.7 [facility] Comment on above: Performed By: #### L UPUSP ####[place] [phone] Hex Phase Confirm 54.4 sec Normal 45.1-64.1 [facility] Comment on above: Performed By: #### L UPUSP ####[place] [phone] Hex Phase Delta 0.1 delta sec Normal <9.0 [facility] Comment on above: Performed By: #### L UPUSP ####[place] [phone] Hex Phase Screen 54.5 sec Normal 48.9-70.2 [facility] Comment on above: Performed By: #### L UPUSP ####[address] [phone] IgA Cardiolipin Ab. <9 Normal 0-11 [facility] Comment on above: Result Comment: <12 APL Jlbmsjdn70-38 APL Equivocal>40 APL PositiveThe following results were obtained with an T[employer] Lite NIKI IgA III MATTIE. Cardiolipin IgA values obtained with different manufacturers' assay methods may not be used interchangeably. The magnitude of the reported IgA levels cannot be correclated to an endpoint titer. Performed By: #### L UPUSP ####[place] [address] [place], [place] [phone] IgG Cardiolipin Ab. <9 Normal 0-9 [facility] Comment on above: Result Comment: <10 GPL [id number] GPL Equivocal>40 GPL PositiveThe following results were obtained with the [employer] QUANTA Lite NIKI IgG III MATTIE. Cardiolipin IgG values obtained with the different manufacturers' assay methods may not be used interchangeably. The magnitude of the reported IgG levels cannot be correlated to an endpoint titer. Performed By: #### L UPUSP ####[facility] [place], [place] [phone] IgM Cardiolipin Ab. <9 Normal 0-11 [facility] Comment on above: Result Comment: <12 MPL Nyrlteav22-28 MPL Equivocal>40 MPL PositiveThe following results were obtained with the [employer] QUANTA Lite NIKI IgM III MATTIE. Cardiolipin IgM values obtained with different manufacturers' assay methods may not be used interchangeably. The magnitude of the reported IgM levels cannot be correlated to an endpoint titer. Performed By: #### L UPUSP ####[place] [address] [place], [place] [phone] Interpretation (NOTE) Normal [facility] Comment on above: Result Comment: Perf [facility] Pathologist: La Martinez M.D., Ph.D.Interpretation:Normal - see comment below.Laboratory testing was performed to evaluate the presence of a lupusanticoagulant and anti-phospholipid antibodies. The PT and APTTvalues are both within the normal range. A normal thrombin time (TT)makes a heparin and/or direct thrombin inhibitor effect unlikely.LUPUS ANTICOAGULANT STUDIES: There is no evidence for a lupusanticoagulant or other coagulation inhibitor at this time.ANTIPHOSPHOLIPID ANTIBODY STUDIES: The IgG, IgM and IgAanticardiolipin antibody titers were all negative. Both the IgG andIgM Beta-2 Glycoprotein I antibody titers were negative.The criteria for the diagnosis of a Lupus Anticoagulant, as detailedby the Subcommittee on Lupus Anticoagulants and Anti-PhospholipidAntibodies of the Scientific and Standardization Committee of theInternational Society on Thrombosis and Haemostasis (ISTH), are thefollowing: (1) A prolonged phospholipid-dependent clotting test(screening test); (2) Evidence for an inhibitor (1:1 mix ofpatient:normal plasma); (3) Evidence that the inhibitor isphospholipid dependent and (4) Exclusion of specific inhibitors (ie,fVIII inhibitors, direct thrombin inhibitors, or heparin). Thromb.Haemost. 74:1185 (1995). Performed By: #### L UPUSP ####[facility] [address] [place], [place] [phone] PNP Negative Normal Negative [facility] Comment on above: Performed By: #### L UPUSP ####[facility] [address] [place], [place] [phone] PT Sec 10.7 sec Normal 8.4-13.0 [facility] Comment on above: Performed By: #### L UPUSP ####[facility] [place], [place] [phone] Thrombin Time 15.5 sec Normal <18.6 [facility] Comment on above: Performed By: #### L UPUSP ####[facility] [address] [place], [place] [phone] PROGRESSon 04-13-2017 PROGRESS HNO ID: [id number] thor: Maeve Olsen: (none)Author Type: PhysicianType: Progress NotesFiled: 04/13/2017 4:34 PMNote Text:Carlota De La Torre is a 41 year old female who presents in consultation today04/13/17 just under 8 weeks with abnormal lab values. She has hadone miscarriage. No history of blood clotting, DVT or thromboembolism.She does have a history of thyroid abnormality. A lupus anticoagulantpanel was done with the PTT slightly elevated at 42. DRVVT screen wasnormal at 38. The test result was that a lupus anticoagulant was notdetected. She is presenting for evaluation. She has never had anyhistory of clotting, DVT or thromboembolism. He is at one miscarriage.PAST MEDICAL HISTORYDiagnosis Date- Abnormal laboratory test PTTPAST SURGICAL HISTORYNo date: BREAST QBTZRL8912/09/2016: CECY, MAURICIO AND/OR THERAPEUTIC Comment: Dilation AND curettageSocial HistorySubstance Use Topics- Smoking status: Never Smoker- Smokeless tobacco: Never Used- Alcohol use NoFAMILY HISTORY Thyroid Mother Cancer Father Comment: Salivary gland Cancer Maternal Grandmother Comment: Lung Cancer Maternal Grandfather Comment: Lung Cancer Paternal Grandmother Comment: Colon Cancer Paternal Uncle Comment: Colon Breast Cancer Paternal Aunt Breast Cancer Maternal AuntCurrent Outpatient Prescriptions: VIT 91/IRON/FOLIC/DHA ( + DHA ORAL) Take by mouth.PROGESTERONE MISCARMOUR THYROID 60 mg tab Take 60 mg by mouth once daily.No current facility-administered medications for this visit.ALLERGIESNo Known AllergiesREVIEW OF SYSTEMSGENERAL: No weight loss, malaise or fevers., SEE HPIHEENT: Negative for frequent or significant headaches, No changes inhearing or vision, no nose bleeds or other nasal problemsNECK: Negative for lumps, goiter, pain and significant neck swellingRESPIRATORY: Negative for cough, wheezing or shortness of breath.CARDIOVASCULAR: Negative for chest pain, leg swelling or palpitations.GI: Negative for abdominal discomfort, blood in stools or black stools orchange in bowel habitsMUSCULOSKELETAL: Negative for joint pain or swelling, back pain or musclepain.SKIN: Negative for lesions, rash, and itching.PSYCH: Negative for sleep disturbance, mood disorder and recentpsychosocial stressors.HEMATOLOGY/LYMP HOLOGY: Negative for prolonged bleeding, bruising easily orswollen nodes.NEURO: No history of headaches, syncope, paralysis, seizures or tremorsAll other reviewed and negative other than HPI.PHYSICAL EXAM:BP 123/81 Pulse 68 Temp 36.2 ?C (97.2 ?F) (Temporal Artery) Resp 18 Ht 168.3 cm (5' 6.25 ) Wt 76.6 kg (168 lb 14.4 oz) LMP (LMPUnknown) BMI 27.06 kg/u4Hptqwzi Appearance: alert and oriented, appearing in no acute distressSkin: skin color, texture, turgor normal, no suspicious rashes or lesions.Head: normal.Eyes: Anicteric sclera. Pupils are equally round. Extraocular movementsare intact. .Ears: external ears normalNeck: Supple, no adenopathy; thyroid symmetric, normal size, no bruits.Back:no pain with ambulationLungs: good air exchange overallHeart: RRRAbdomen:Extremities: Extremities normal.Musculoskeletal: Spine range of motion normal. Muscular strength intact.Peripheral Pulses: Normal.Neurologic: Gait normal. No gross cerebellar defectsPsychiatric: the patient has an appropriate affectNo results found for: HB, HCT, WBC, PLTASSESSMENT/PLAN:1. Less than 8 weeks gestation of - ICD9: V22.2, ICD10: Z3A.01I've given her reassurance that there does not appear to be any evidenceof a positive lupus anticoagulant or circulating inhibitor. I will repeatthe blood tests and call her with the results. In my opinion, she doesnot have the antiphospholipid antibody syndrome or lupus anticoagulantsyndrome. Secondly, she does not have the clinical profile of someonewith a clinically significant lupus anticoagulant or circulatinginhibitor. She has had one miscarriage in the past. We will check herlab values and I will call her next week with the results.- + DHA ORAL- PROGESTERONE MISC- ABS GRAN CT + CBC- PROTHROMBIN TIME/PT- ACTIVATED PTT- LUPUS ANTICOAG Konstantin Cardenas MD Normal [facility] Protimeon 04-13-2017 INR Coag RelTime (Bld) 1.0 {INR} Normal 0.8-1.2 [facility] Comment on above: Result Comment: The PT/INR can be used to monitor the therapeutic effect of oral anticoagulants, such as warfarin. The recommended therapeutic range is an INR of 2.0 to 3.0 for most applications, including treatment and prevention of venous thrombosis,treatment of pulmonary embolism, prevention of strokes/TIA in patients with atrial fibrillation, prevention and treatment of thrombosis in patients with a lupus anticoagulant and prevention of systemic embolization in patients with heart valve disorders.There are certain conditions where clinicians may decide to use a lower or higher therapeutic range eg. 1.5 to 1.9 for secondary prevention of idiopathic venous thromboembolism and an INR 2.5 to 3.5 for older generation mechanical heart valves.Jessicaell, et al. CHEST 2004: 126:204S to 233S. Performed By: #### P T, PTT ####[facility] [place], [place] [phone] Performed By: #### L UPUSP ####[facility] [place], [place] [phone] PT Sec 10.9 sec Normal 8.4-13.0 [facility] Comment on above: Performed By: #### P T, PTT ####[facility] [address] [place], [place] [phone] Vital Signs Date Time Vital Sign Value Performing Clinician Facility 08-31-2023 12:17-0500 Diastolic blood pressure 60 mm[Hg] MD Mic Bowen Work Phone: [facility] 08-31-2023 12:17-0500 Heart rate 60 /min MD Mic Bowen Work Phone: [facility] 08-31-2023 12:17-0500 Respiratory rate 14 /min MD Mic Bowen Work Phone: [facility] 08-31-2023 12:17-0500 SaO2% (BldA) [Mass fraction] 99 % MD Mic Bowen Work Phone: [facility] 08-31-2023 12:17-0500 Systolic blood pressure 95 mm[Hg] MD Mic Bowen Work Phone: [facility] 08-31-2023 10:20-0500 Body height 165.1 cm MD Mic Bowen Work Phone: [facility] 08-31-2023 10:20-0500 Body weight 73.93 kg MD Mic Bowen Work Phone: [facility] 07-21-2023 13:00-0400 Body height 165.1 cm Imad Asaad Other [facility] Other 07-21-2023 13:00-0400 Body mass index (BMI) [Ratio] 26.62 kg/m2 Imad Asaad Other [facility] Other 07-21-2023 13:00-0400 Body weight 72.58 kg Imad Asaad Other [facility] Other 07-21-2023 13:00-0400 Diastolic blood pressure 79 mm[Hg] Imad Asaad Other [facility] Other 07-21-2023 13:00-0400 Systolic blood pressure 124 mm[Hg] Imad Asaad Other [facility] Other 05-13-2023 16:00-0400 Body height 165.1 cm Cooper Louieshaneqiana Other [facility] Other 05-13-2023 16:00-0400 Body mass index (BMI) [Ratio] 26.29 kg/m2 Cooper Louiepiter Other [facility] Other 05-13-2023 16:00-0400 Body weight 71.67 kg Cooper Hoyosvandanaqiana Other [facility] Other 05-13-2023 16:00-0400 Diastolic blood pressure 75 mm[Hg] Cooper Louiepiter Other [facility] Other 05-13-2023 16:00-0400 Respiratory rate 18 /min Cooper Louiepiter Other [facility] Other 05-13-2023 16:00-0400 SaO2% (BldA) [Mass fraction] 98 % Cooper Louiepiter Other [facility] Other 05-13-2023 16:00-0400 Systolic blood pressure 117 mm[Hg] Cooper Louiepiter Other [facility] Other 12-30-2022 15:15-0400 Body height 165.1 cm Cooper Hardwick Other [facility] Other 12-30-2022 15:15-0400 Body temperature 98.2 [degF] Cooper Hardwick Other [facility] Other 12-30-2022 15:15-0400 Diastolic blood pressure 82 mm[Hg] Cooper Hardwick Other [facility] Other 12-30-2022 15:15-0400 Respiratory rate 20 /min Cooper Hardwick Other [facility] Other 12-30-2022 15:15-0400 SaO2% (BldA) [Mass fraction] 100 % Cooper Hardwick Other [facility] Other 12-30-2022 15:15-0400 Systolic blood pressure 127 mm[Hg] Cooper Hardwick Other [facility] Other 08-18-2022 09:05-0500 Diastolic blood pressure 59 mm[Hg] MD Mic Bowen Work Phone: [facility] 08-18-2022 09:05-0500 Heart rate 53 /min MD Mic Bowen Work Phone: [facility] 08-18-2022 09:05-0500 Respiratory rate 16 /min MD Mic Bowen Work Phone: [facility] 08-18-2022 09:05-0500 SaO2% (BldA) [Mass fraction] 99 % MD Mic Bowen Work Phone: [facility] 08-18-2022 09:05-0500 Systolic blood pressure 97 mm[Hg] MD Mic Bowen Work Phone: [facility] 08-18-2022 07:34-0500 Body height 165.1 cm MD Mic Bowen Work Phone: [facility] 08-18-2022 07:34-0500 Body temperature 98.3 [degF] MD Mic Bowne Work Phone: [facility] 08-18-2022 07:34-0500 Body weight 72.12 kg MD Mic Bowen Work Phone: [facility] 05-12-2022 16:15-0400 Body height 165.1 cm Cooper Hardwick Other [facility] Other 05-12-2022 16:15-0400 Body mass index (BMI) [Ratio] 26.62 kg/m2 Cooper Hardwick Other [facility] Other 05-12-2022 16:15-0400 Body weight 72.58 kg Cooper Ronen Other [facility] Other 05-12-2022 16:15-0400 Diastolic blood pressure 70 mm[Hg] Cooper Hardwick Other [facility] Other 05-12-2022 16:15-0400 Respiratory rate 18 /min Cooper Hardwick Other [facility] Other 05-12-2022 16:15-0400 SaO2% (BldA) [Mass fraction] 98 % Cooper Hardwick Other [facility] Other 05-12-2022 16:15-0400 Systolic blood pressure 110 mm[Hg] Cooper Hardwick Other [facility] Other Encounters Encounter Date Encounter Type Care Provider Facility Start: 09-07-2023 End: 09-07-2023 ambulatory Imad Asaad Other [facility] Other Start: 09-07-2023 Telephone encounter Imad Asaad [facility] Start: 08-31-2023 End: 08-31-2023 ambulatory Mic Bowen Facility:[facility] Start: 08-31-2023 End: 08-31-2023 Admission to same day surgery center MD Mic Bowen Work Phone: [facility] Work Phone: Start: 08-31-2023 End: 08-31-2023 ambulatory MD Mic Bowen Work Phone: [facility] Work Phone: Start: 08-24-2023 End: 08-24-2023 ambulatory MIC BOWEN Not Available Start: 08-10-2023 End: 08-10-2023 ambulatory Mic Bowen Facility:[facility] Start: 08-10-2023 End: 08-10-2023 ambulatory MD Mic Bowen Work Phone: [facility] Work Phone: Start: 08-10-2023 End: 08-10-2023 Patient encounter procedure MD Mic Bowen Work Phone: [facility] [place] Work Phone: Start: 08-06-2023 End: 08-07-2023 ambulatory MIC BOWEN [facility] Start: 07-22-2023 End: 07-22-2023 ambulatory Imad Asaad Other [facility] Other Start: 07-22-2023 Telephone encounter Imad Asaad [facility] Start: 07-21-2023 End: 07-21-2023 ambulatory Imad Asaad Other [facility] Other Start: 07-21-2023 Office outpatient ne w 45 minutes Imad Asaad [facility] Start: 05-13-2023 End: 05-13-2023 ambulatory Cooper Hardwick Other [facility] Other Start: 05-13-2023 Patient encounter procedure Cooper Louieshaneqiana [facility] Start: 05-13-2023 Periodic preventive med est patient 40-64yrs Cooper Ronen [facility] Start: 05-05-2023 End: 05-06-2023 ambulatory MIC BOWEN [facility] Start: 04-14-2023 End: 04-15-2023 ambulatory MIC BOWEN [facility] Start: 01-12-2023 End: 01-13-2023 ambulatory MIC BOWEN [facility] Start: 12-30-2022 End: 12-30-2022 ambulatory Cooper Hardwick Other [facility] Other Start: 12-30-2022 Office outpatient visit 15 minutes Cooper Louieshaneqiana [facility] Start: 08-18-2022 Telephone encounter [facility] Start: 08-18-2022 End: 08-18-2022 Admission to same day surgery center MD Mic Bowen Work Phone: [facility] Start: 08-18-2022 End: 08-18-2022 ambulatory MD Mic Bowen Work Phone: [facility] Work Phone: Start: 05-12-2022 End: 05-12-2022 ambulatory Cooper Mengqiana Other [facility] Other Start: 05-12-2022 Patient encounter procedure Cooper Hardwick [facility] Start: 05-12-2022 Periodic preventive med est patient 40-64yrs Cooper Hardwick [facility] Start: 12-02-2021 End: 03-13-[address] BECKY TORRES Facility:[facility] Start: 09-18-2021 End: 09-19-[address] BECKY TORRES Facility:[facility] Start: 09-10-2021 End: 09-11-[address] BECKY TORRES Facility:[facility] Start: 09-02-2021 End: 09-03-[address] BECKY TORRES Facility:[facility] Start: 08-20-2021 End: 08-21-[address] BECKY TORRES Facility:[facility] Start: 08-13-2021 End: 08-14-[address] BECKY TORRES Facility:[facility] Start: 08-09-2021 End: 08-10-[address] BECKY TORRES Facility:[facility] Start: 08-02-2021 End: 08-03-[address] BECKY TORRES Facility:[facility] Start: 07-12-2021 End: 07-13-[address] BECKY TORRES Facility:[facility] Start: 07-05-2021 End: [address] BECKY TORRES Facility:[facility] Start: 06-18-2021 End: 06-19-[address] BECKY TORRES Facility:[facility] Start: 06-11-[address] BECKY TORRES Facilit y:[facility] Start: 06-03-2021 End: 06-04-[address] BECKY TORRES Facility:[facility] Start: 05-06-2021 End: 05-07-[address] BECKY TORRES Facility:[facility] Start: 04-13-2017 End: 04-14-2017 Ambulatory MAEVE CARDENAS [facility] Procedures Date Procedure Procedure Detail Performing Clinician Start: 08-31-2023 Esophagogastroduodenoscopy MD Mic Bowen Work Phone: Start: 08-10-2023 Ultrasonography of abdomen MD Mic Bowen Work Phone: Start: 08-18-2022 Colonoscopy MD Mic Bowen Work Phone: Plan of Treatment Date Care Activity Detail Author Start: 08-31-2023 [facility] Start: 08-18-2022 [facility] Patient Education [facility] Work Phone: Payers Date Payer Category Payer Self-pay [id number] 1975 Unknown [id number] 2.16.84 0.1.219876.3.579.2.593 1977 Unknown [id number] 2.16.84 0.1.689006.3.579.2.593 1977 Unknown [id number] 2.16.84 0.1.064146.3.579.2.593 1977 Unknown [id number] 2..84 0.1.867430.3.579.2.593 1977 Unknown [id number] 2..84 0.1.988385.3.579.2.593 1977 Unknown [id number] 2.16.84 0.1.693439.3.579.2.593 1977 Unknown [id number] 2.16.84 0.1.253190.3.579.2.593 1977 Unknown [id number] 2.16.84 0.1.880724.3.579.2.593 1977 Unknown [id number] 2.16.84 0.1.449940.3.579.2.593 1977 Unknown [id number] 2.16.84 0.1.598842.3.579.2.593 1977 Unknown [id number] 2.16.84 0.1.532065.3.579.2.593 1977 Unknown [id number] 2.16.84 0.1.986590.3.579.2.593 1977 Unknown [id number] 2.16.84 0.1.367422.3.579.2.593 1977 Unknown [id number] 2.16.84 0.1.988498.3.579.2.593 1977 Unknown [id number] 2.16.8 40.1.889535.3.579.2.718 1977 Unknown [id number] 2.16.8 40.1.067847.3.579.2.718 1977 Unknown [id number] 2.16.8 40.1.978261.3.579.2.718 1977 Unknown [id number] 2.16.8 40.1.718555.3.579.2.718 1977 Unknown [id number] 2.16.840 .1.063952.3.579.2.1259 1959 Self-pay [id number] 1957 Unknown [id number] Unknown [id number] 2.16.8 40.1.274361.3.579.2.531 Unknown [id number] 2.16.8 40.1.006191.3.579.2.531 Social History Date Type Detail Facility Unknown if ever smoked [facility] Other Sex Assigned At Sex Assigned At Bir th [facility] Other Start: 08-18-2022 End: 08-31-2023 Tobacco smoking status NHIS Never smoked tobacco (finding) [facility] Start: 1975 Sex Assigned At Female F [facility] Goals Date Patient Goal Desired Activity /State Clinical Notes 05-12-2022 to 08-31-2023 Note Date & Type Note Facility 08-31-2023 Procedure note [facility] 07-21-2023 Evaluation note Encounter Date Diagnosis Assessment Notes Jun, Functional constipation (ICD-10 - K59.04) Jun, Bloating (ICD-10 - R14.0) Jun, Epigastric abdominal pain (ICD-10 - R10.13) [facility] [employer] Other 10-31-2023 History general Narrative - Reported* Type Description Date Medical History Tendonitis Medical History Thyroid conversion issue Medical History tonsil stones Medical History varicose veins Medical History CIC IBS Surgical History varicose vein stripping 023 [employer] Other 08-23-2023 Evaluation note* Encounter Date Diagnosis Assessment Notes Treatment Notes Treatment Clinical Notes Apr, Annual physical exam (ICD-10 - Z00.00) Overall, patient doing well. Continue current care. Up to date on WWE and mammogram (through her cook chief, Dr. Pringle). She recently had comprehensive labs done through her specialist, including thyroid levels and Vit D, and agrees to drop them off for my review. Apr, Acquired hypothyroidism (ICD-10 - E03.9) Patient is following with a specialist for management. She will have labs done through her specialist. Her dose was recently reduced -- questionable whether or not her [place] has anything to do with her constipation and abdominal complaints. Apr, Slow transit constipation (ICD-10 - K59.01) Patient reports persistent LLQ abdominal pain, intermittent constipation, and occasional mucous in the stools. She is requesting consultation with GI (she's had colonoscopy but has never met with them otherwise) and I agree that is reasonable at this time. Apr, LLQ abdominal pain (ICD-10 - R10.32) Patient reports persistent LLQ abdominal pain, intermittent constipation, and occasional mucous in the stools. She is requesting consultation with GI (she's had colonoscopy but has never met with them otherwise) and I agree that is reasonable at this time. [employer] Other 04-11-2023 Evaluation note* Encounter Date Diagnosis Assessment Notes Treatment Notes Treatment Clinical Notes Dec, Acute bacterial conjunctivitis of right eye (ICD-10 - H10.31) Will treat as detailed. We did discuss s/s of ocular emergencies -- immedeiately to the nearest ER for any of those s/s. Call with questions/concerns . [employer] [facility] Encounter Date Diagnosis Assessment Notes Treatment Notes Treatment Clinical Notes Apr, Annual physical exam (ICD-10 - Z00.00) Overall, patient doing well. Continue current care. Up to date on WWE and mammogram (through her cook chief, Dr. Pringle). She plans to have comprehensive labs done through her specialist, including thyroid levels and Vit D. Apr, Acquired hypothyroidism (ICD-10 - E03.9) Patient is following with a specialist for management. She will have labs done through her specialist. [employer] Other Evaluation noteNo assessment information available [facility] Work Phone: Evaluation noteNo InformationNort [employer] Other History and physical note Author Kwame Noel [facility] August 18, 2022 8:07am Note Date/Time August 18, 2022 8:07am [facility] [address] [place] [address] Gastroenterology H&P Signed Patient: Eb De La Torre MR#: [id number] : 1975 Acct:[id number] Age/Sex: 47 / F Adm Date: 2 Loc: Room: Type: [facility] Attending Dr: Kwame Noel MD Copies to: MD Mic Figueroa MD~ Date of Service: 08/18/2022 HISTORY & PHYSICAL: Patient's history with special attention to the cardiovascular, pulmonary systems and the current problem was reviewed with the patient immediately prior to the procedure. Present medications and doses reviewed in the EMR. Allergies and pertinent laboratory tests were also reviewedat this time in the EMR. The physical examination, as below, was then performed. Indication, assessment and HPI: 47-year-old female presents for screening colonoscopy Family history of GI malignancy? No PHYSICAL EXAMINATION Mouth and Pharynx : Moist mucus membranes, normal dentition Cardiac: Regular rate, regular rhythm Pulmonary: Clear to auscultation bilaterally, no wheezing Neurological: Alert and oriented x3, no focal deficits noted Abdomen: Abdomen soft, non-tender REVIEW OF SYSTEMS Constitutional: Denies malaise, fevers Cardiovascular: Denies chest pain, palpitations Respiratory: Denies shortness of breath, wheezing Gastrointestinal: Per HPI Genitourinary: Denies dysuria, polyuria Musculoskeletal: Denies joint swelling, joint stiffness Neurological: Denies numbness, tingling Integumentary: Denies rashes, skin lesions Endocrine: Denies fatigue, weight loss Written informed consent obtained from the patient. Risks (including but not limited to perforation, infection, bloating, bleeding, need for emergent surgeryand loss of life), benefits and alternatives explained and questions answered. The patient verbalized understanding. Based on history patient is an appropriate candidate for the procedure. Kwame Noel MD Documented By: Kwame Noel MD 08/18/22804 Signed By: <Electronically signed by Kwame Noel MD> 08/18/22806 [facility] Work Phone: History and physical note Author Debi Mares [facility] August 31, 2023 11:27am Note Date/Time August 31, 2023 11:28am [facility] [address] [place] [address] Gastroenterology H&P Signed Patient: Eb De La Torre MR#: [id number] : 1975 Acct:[id number] Age/Sex: 48 / F Adm Date: 3 Loc: Room: Type: [facility] Attending Dr: Debi Mares MD Copies to: MD Debi Pleitez MD~ Date of Service: 08/31/2023 HISTORY & PHYSICAL: Patient's history with special attention to the cardiovascular, pulmonary systems and the current problem was reviewed with the patient immediately prior to the procedure. Present medications and doses reviewed in the EMR. Allergies and pertinent laboratory tests were also reviewedat this time in the EMR. The physical examination, as below, was then performed. Indication, assessment and HPI: 48-year-old female here for EGD for evaluation of epigastric pain Family history of GI malignancy? No PHYSICAL EXAMINATION Mouth and Pharynx : Moist mucus membranes, normal dentition Cardiac: Regular rate, regular rhythm Pulmonary: Clear to auscultation bilaterally, no wheezing Neurological: Alert and oriented x3, no focal deficits noted Abdomen: Abdomen soft, non-tender REVIEW OF SYSTEMS Constitutional: Denies malaise, fevers Cardiovascular: Denies chest pain, palpitations Respiratory: Denies shortness of breath, wheezing Gastrointestinal: Per HPI Genitourinary: Denies dysuria, polyuria Musculoskeletal: Denies joint swelling, joint stiffness Neurological: Denies numbness, tingling Integumentary: Denies rashes, skin lesions Endocrine: Denies fatigue, weight loss Written informed consent obtained from the patient. Risks (including but not limited to perforation, infection, bloating, bleeding, need for emergent surgeryand loss of life), benefits and alternatives explained and questions answered. The patient verbalized understanding. Based on history patient is an appropriate candidate for the procedure. Debi Mares M.D. Documented By: Debi Mares MD 08/31/231126 Signed By: <Electronically signed by Debi Mares MD> 08/31/231126 [facility] Work Phone: History general Narrative - Reported* Type Description Date Medical History Tendonitis Medical History Thyroid conversion issue Medical History tonsil stones [employer] Other Hospital Discharge instructions Additional Instructions DISCHARGE INSTRUCTIONS FOR COLONOSCOPY WHAT TO EXPECT: - You may feel full, gassy or cramping after your procedure. In some cases, this may be from a few hours to a day. Walking may help relieve the discomfort. - If you have polyp(s) removed you may note some minor bloody discharge after your first bowel movements. - You should begin to recover from anesthesia within 1 hour of the procedure, however may feel groggy for the next 24 hours. DO's AND DON'Ts: - Call your doctor right away if you have a hard abdomen, severe pain, are passing lots of bright red blood or clots. - Call your doctor if you develop any rashes, hives or difficulty breathing. - Let your doctor know if you have not had a bowel movement by 3 days after your procedure. - If you take 81 mg aspirin for your heart it is safe to resume this medication. - If you take other blood thinner medications your doctor will instruct you when these can safely be resumed. - Do NOT drive for 24 hours. - Do NOT operate machinery such as power tools, lawn mowers, snow blowers, sewing machines, etc. for 24 hours. - Avoid alcoholic beverages and drugs for allergies, nerves, or sleep. - Do NOT stay alone. Do NOT leave your child unattended. - Do NOT make important personal or business decisions or sign any legal documents. - Eat solid foods and drink liquids in smaller amounts than usual until normal appetite returns. If you should experience an upset stomach, liquids high in sugar content (soda, Chris-Aid, non-acid juices) are recommended. - You can resume normal activities tomorrow. FOLLOW UP & RECOMMENDATIONS: - Follow-up with Dr. Noel as needed - Notify the doctor if you have any problems. - Repeat colonoscopy in 10 years. - Follow up with PCP. - Office number [phone].[facility] Work Phone: Hospital Discharge instructions Additional Instructions DISCHARGE INSTRUCTIONS FOR UPPER ENDOSCOPY WHAT TO EXPECT: - You may feel full, gassy or cramping after your procedure. In some cases, this may be from a few hours to a day. Walking may help relieve the discomfort. - Your throat may feel sore today from the scope that the doctor passed through your throat to visualize your stomach. Take a throat lozenge or suck on ice to ease the discomfort. - You may notice some streaks of blood in your sputum if the doctor has taken a biopsy. - You should begin to recover from anesthesia within 1 hour of the procedure, however may feel groggy for the next 24 hours. DO's AND DON'Ts: - Call your doctor right away if you have a hard abdomen, severe pain, vomiting or if you cough up large amounts of blood. - Call your doctor if you develop any rashes, hives or difficulty breathing. - If you take 81 mg aspirin for your heart it is safe to resume this medication. - If you take other blood thinner medications your doctor will instruct you when these can safely be resumed. - Do NOT drive for 24 hours. - Do NOT operate machinery such as power tools, lawn mowers, snow blowers, sewing machines, etc. for 24 hours. - Avoid alcoholic beverages and drugs for allergies, nerves, or sleep. - Do NOT stay alone. Do NOT leave your child unattended. - Do NOT make important personal or business decisions or sign any legal documents. - Eat solid foods and drink liquids in smaller amounts than usual until normal appetite returns. If you should experience an upset stomach, liquids high in sugar content (soda, Chris-Aid, non-acid juices) are recommended. - Do NOT smoke. - Do take it easy today. You need not stay in bed, but avoid strenuous activities such as jogging or working out. FOLLOW UP & RECOMMENDATIONS: -Start omeprazole 40 mg daily -Follow up pathology. If gastric biopsies are positive for H. pylori we will treat using quadruple therapy -Avoid NSAIDs -Notify the doctor if you have any problems. -Office number [phone]. [facility] Work Phone: Summary Purpose Family History Relationship Condition Age at Onset Recorded Date/T william Not Specified Hypothyroidism in adult Unknown Malignant neoplasm of skin Unknown father History of basal cell carcinoma (BCC) Unk nown brother Hypertension Unknown grandparent Heart problem Unknown Chronic obstructive pulmonary disease Unk nown Malignant neoplasm of lung Unknown grandparent Malignant neoplasm of lung Unknown grandparent Myocardial infarction Unknown Advance Directives Advance Directive Response Recorded Date/ Time Advance Directives No August 28, 2017 8:31am Chief Complaint and Reason for Visit Chief Complaint Change in Bowel Habi ts Chief Complaint R14.0 Chief Complaint R14.0 epigastric pain, bloating Reason for Referral Reason Requesting Dr. Mares if possible (patient saw Dr. Noel for colonoscopy and was not pleased) LLQ pain, intermittent mucous in stools, frequent constipation Diagnosis 1 Slow transit constip ation (K59.01) [facility] Organization [facility]erring Provider First Name Cooper Referring Provider Last Name Ronen Referring Provider Specialty Family Prac jillian Referred Organization [facility] Gastroenterolo gy Referred Provider Debi Mares Referred Address [address] [place] [phone] Referred Provider Specialty Gastroentero logy Referral Priority Routine General Notes Beatriz Cid 04:04:06 PM >recieved today, faxed P2P Additional Source Comments INFORMATION SOURCE (unrecogn ized section and content) DATE CREATED AUTHOR 03/17/2018 [facility] DATE CREATED AUTHOR AUTHOR'S ORGANIZ ATION 07/28/2019 [facility] DATE CREATED AUTHOR AUTHOR'S ORGANIZ ATION 03/13/2022 [facility] DATE CREATED AUTHOR AUTHOR'S ORGANIZ ATION 01/27/2023 [facility] DATE CREATED AUTHOR AUTHOR'S ORGANIZ ATION 08/14/2023 [facility] DATE CREATED AUTHOR AUTHOR'S ORGANIZ ATION 08/25/2023 [facility] EPIC DATE CREATED AUTHOR AUTHOR'S ORGANIZ ATION 09/09/2023 [facility] REASON FOR VISIT (unrecogniz ed section and content) AnnualClinicalright eye redn ess and irritation, drainage lasting 1 dayANNUAL, Gets mammogram and yearly pap- OBGYN sepATIENT IS HERE FOR LLQ PAIN/CONSTIPATION/MUCAS IN STOOLGastro office notemedication side effect Care Teams (unrecognized sec tion and content) Team Status: Inactive Member Role Status Dates Kwame Noel MD Attending Provider Active Mic Bowen MD Primary Care Provider Active Team Status: Active Member Role Status Dates Mic Bowen MD Primary Care Provider Active Team Status: Inactive Member Role Status Dates Mic Bowen MD Primary Care Provider Active Debi Mares MD Attending Provider Active Goals (unrecognized section and content) Goals may be documented in a n alternate section FOR RECORDS PERTAINING TO PATIENTS WHO ARE OR HAVE BEEN ENROLLED IN A CHEMICAL DEPENDENCY/SUBSTANCEABUSE PROGRAM, SOME INFORMATION MAY BE OMITTED. This clinical summary was aggregated from multiple sources. Caution should be exercised in using it in the provision of clinical care. This summary normalizes information from multiple sources, and as a consequence, information in this document may materially change the coding, format and clinical context of patient data. In addition, data may be omitted in some cases. CLINICAL DECISIONS SHOULD BE BASED ON THE PRIMARY CLINICAL RECORDS. [employer] provides no warranty or guarantee of the accuracy or completeness of information in this document.
== END 2023-10-06 10:52 | disposition home or self-care (01) ==
LOC: VC 10:51
PROVIDERS: PCP Radiology Diagnostic Radiology; Visit Provider Radiology Diagnostic Radiology
DX: I83.813 Varicose veins of bilateral lower extremities with pain (principal)
CPT/HCPCS: 93970; G0463

== ENCOUNTER 2023-11-03 10:55 | Outpatient (OUT) | payer OTHER, SELFPAY ==
--- OUTSIDE RECORDS SUMMARY | 2023-11-03 10:58 | XMS_ITS | CCD ---
Author Name Unknown Address [address] [place] [address] [facility] Care Team Providers Care Contracts Administrator Name Role Phone RONALD, MAEVE Vargas Unavailable Unavailable BHAVIK GONZALEZ Unavailable Unavailable BRIAN, [...] Adams Consulting Unavailable WEST, DR BECKY Adams Admelieser Unavailable WEST, DR BECKY Adams Attending Unavailable [...] Unavailable WEST, DR BECKY Adams Consulting Unavailable BRIAN, DR BECKY Adams Attending Unavailable BRIAN, DR BECKY Adams Consulting Unavailable BRIAN, DR BECKY Adams Attending Unavailable BRIAN, DR BECKY Adams Admitting Unavailable Cooper Hardwick Unavailable MD Kwame Noel Attending Provider MD Mic Bowen Primary Care Provider Kwame Noel Unavailable Asaad, Imad Unavailable MD Mic Bowen Primary Care Provider [phone] MD Suzan Imad Attending Provider MIC BOWEN. Admitting Unavailable HEMEYER, EDHERBERT Gunderson. Primary Care Unavailable HEMEMIC HALL. Attending Unavailable MIC BOWEN. Primary Care Unavailable HEMEMIC HALL. Admitting Unavailable HEMEMIC HALL. Attending Unavailable MIC BOWEN. Admitting Unavailable HEMEYERMIC. Primary Care Unavailable HEMEYERMIC. Attending Unavailable HEMEYERMIC. Admitting Unavailable HEMEYER, MIC Gunderson. Primary Care Unavailable HEMERAFAEL, MCI Gunderson. Attending Unavailable HEMEMIC HALL J Attending Unavailable Asaad, Imad Admitting Unavailable Asaad, Imad Attending Unavailable Hemerafael, Mic Gunderson Primary Care Unavailable Asaad, Imad Admitting Unavailable Asaad, Imad Attending Unavailable HemeMic hall Primary Care Unavailable Asaad, Imad Attending Unavailable Mic Bowen Primary Care Unavailable Asaad, Imad Admitting Unavailable Cooper Hardwick MD Primary Care Provider [phone] Allergies Allergy Classification Reported Allergen(s) Allergy Type Date of Onset Reaction(s) Facility (1 source) Gluten; Translations: [Glutens] Propensity to adverse reactions to food (disorder) [facility] Repository (1 source) No Known Medication Allergies; Translations: [No Known Medication Allergies] Propensity to adverse reactions to drug (disorder) [facility] Repository (1 source) Escitalopram Drug Allergy 3 [facility] (1 source) Latex Propensity to adverse reactions 7 [facility] Medications Current Medications Medication Drug Class(es) Dates Sig (Normalized) Sig (Original) cholecalciferol 0.125 mg oral tablet (11 sources) Vitamin D Start: 08-18-2022 take 1 tablet by mouth once daily Cholecalciferol (Vitamin D3) (Vitamin D3) 125 mcg (5,000 unit) Tablet Active 92124 UNIT PO Daily August 18, 2022 12:00am take 2 capsules by m outh every twenty-four hours Vitamin D3 1.25 MG (05061 UT) 2 capsules Orally Daily Active ciprofloxacin [...] TO NEXIUM 40 MG DAILY Aug, Active Levonorgestrel-Ethi nyl Estrad (Tyblume) 0.1-20 MG-MCG chewable tablet (1 source) Start: 09-06-2023 End: 09-05-2024 Levonorgestrel-Ethi nyl Estrad (Tyblume) 0.1-20 MG-MCG chewable tablet Indications: Encounter for surveillance of contraceptive pills Chew 1 tablet in the morning. 28 tablet 11 09/06/2023 09/05/2024 Active levothyroxine sodium 0.025 mg oral tablet (5 sources) l-Thyroxine Start: 09-11-2023 End: 03-09-2024 take 1 tablet by mouth before mealtime levothyroxine (Synthroid) 25 MCG tablet Indications: Central hypothyroidism (CMS/HCC) Take 1 tablet (25 mcg) by mouth in the morning. Take before meals. 90 tablet 0 09/11/2023 03/09/2024 Active Start: 08-18-2022 take 25 ug by mouth [...] day for 30 day(s) Active Multivitamin preparation (4 sources) Start: 2 take 1 tablet by mouth once daily Multivitamin Active 1 TAB PO Daily August 18, 2022 12:00am omeprazole 40 mg delayed release oral capsule (1 source) Proton Pump Inhibitor Start: 3 take 40 mg by mouth once daily Omeprazole Active 40 MG PO Daily August 31, 2023 12:00am Thyroid (Pork) (Coolin Thyroid) 60 mg Tablet (2 sources) Start: 8 take 1 tablet by mouth twice daily Thyroid (Pork) (Coolin Thyroid) 60 mg Tablet Active 60 MG PO Twice daily November 16, 2017 12:00am thyroid (penitentiary) 60 mg oral tablet (10 sources) Start: 8 End: 4 take 1 tablet by mouth in the morning thyroid (Coolin Thyroid) 60 MG tablet Indications: Sick-euthyroid syndrome , Central hypothyroidism (CMS/HCC) , Chronic fatigue Take 1 tablet (60 mg) by mouth in the morning and 1 tablet (60 mg) in the evening. Take before meals. 180 tablet 1 08/24/2023 02/20/2024 Active Completed/Discontinued Medications Medication Drug Class(es) Dates Sig (Normalized) Sig (Original) acetaminophen 325 mg / HYDROcodone bitartrate 5 mg oral tablet (4 sources) Opioid Agonist Start: 11-19-2017 End: 08-18-2022 take 1 tablet by mouth every six hours Hydrocodone-Acetam inophen (Bliss) 5-325 mg tablet Discontinued 1 - 2 TAB PO Q6H November 19, 2017 August 18, 2022 7:38am ibuprofen 600 mg oral tablet (4 sources) Nonsteroidal Anti-inflammatory Drug Start: 11-19-2017 End: 08-18-2022 Ibuprofen Discontinued 600 MG PO Every 6 hours November 19, 2017 12:00am August 18, 2022 7:38am do not exceed 4 doses in a 24 hour period Multivit 22-Pner-Jmwyte 1-Dha (Pnv-Dha) 27 mg iron-1 mg -300 mg Capsule (4 sources) Start: 11-16-2017 End: 08-18-2022 take 1 capsule by mouth once daily Multivit 95-Quqf-Jpthih 1-Dha (Pnv-Dha) 27 mg iron-1 mg -300 [...] chronic diseases of tonsils and adenoids] Chronic Allergic reactions (1 source) Non-celiac gluten sensitivity; Translations: [Celiac disease] Onset: 03-05-2023 03-05-2023 Chronic Anxiety disorders (1 source) Generalized anxiety disorder; Translations: [Generalized anxiety disorder] Onset: 03-05-2023 03-05-2023 Chronic Female infertility (1 source) Luteal phase defect ; Translations: [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] Onset: 03-05-2023 03-05-2023 Chronic Inflammation; infection of eye (except that caused by tuberculosis or sexually transmitteddisease) (1 source) Unspecified acute conjunctivitis, right eye Episodic Malaise and fatigue (1 source) Fatigue; Translations: [Chronic fatigue, unspecified] Onset: 03-05-2023 03-05-2023 Chronic Menstrual disorders (1 source) Menorrhagia; Translations: [Excessive and frequent menstruation with regular cycle] Onset: 03-05-2023 03-05-2023 Chronic Mood disorders (1 source) Recurrent major depressive episodes, moderate ; Translations: [Major depressive disorder, recurrent, moderate] Onset: 03-05-2023 03-05-2023 Chronic Nutritional deficiencies (1 source) Vitamin D deficiency; Translations: [Vitamin D deficiency, unspecified] Onset: 03-05-2023 03-05-2023 Chronic Other ear and sense organ disorders (1 source) Hearing loss; Translations: [Unspecified hearing loss, unspecified ear] Onset: 03-05-2023 03-05-2023 Chronic Other ear and sense organ disorders (1 source) Sensorineural hearing loss, bilateral; Translations: [Sensorineural hearing loss, bilateral] Onset: 03-05-2023 03-05-2023 Chronic Other gastrointestinal disorders (3 sources) Constipation - functional; Translations: [Chronic idiopathic constipation] Chronic Other gastrointestinal disorders (1 source) Chronic idiopathic constipation Chronic Other gastrointestinal disorders (4 sources) Slow transit [...] distension (gaseous)] Onset: 08-10-2023 Episodic Thyroid disorders (19 sources) Subclinical hypothyroidism; Translations: [Hypothyroidism, unspecified] Onset: 05-12-2022 Resolved: 05-12-2022 Chronic Past or Other Problems Problem Classification Problem Date Documented Da te Episodic/Chronic Other ear and sense organ disorders (1 source) Bilateral tinnitus; Translations: [Tinnitus, bilateral] Onset: 3 03-05-2023 Episodic Other ear and sense organ disorders (1 source) Tinnitus of left ear; Translations: [Tinnitus, left ear] Onset: 3 03-05-2023 Episodic Other gastrointestinal disorders (7 sources) Constipation; Translations: [Constipation, unspecified] Onset: 3 03-05-2023 Episodic Other nutritional; endocrine; and metabolic disorders (1 source) Overweight; Translations: [Overweight] Onset: 3 03-05-2023 Episodic Phlebitis; thrombophlebitis and thromboembolism (8 sources) Phlebitis and thrombophlebitis of superficial vessels of left lower extremity; Translations: [Phlebitis and thrombophlebitis of superficial vessels of lower extremities, bilateral] Onset: 1 Episodic Thyroid disorders (1 source) Sick-euthyroid syndrome; Translations: [Sick-euthyroid syndrome] Onset: 3 03-05-2023 Episodic Varicose veins of lower extremity (4 sources) Varicose veins of bilateral lower extremities with pain; Translations: [VARICOSE VNS HALEY LOW EXTREM W/PAIN] Onset: 1 Episodic Results Test Name Value Interpretation Reference Range Facility [place] gastric emptying studyon 10-26-2023 NM gastric emptying study [facility] [place] [address] Nuclear Medicine Report Signed Patient: Eb De La Torre MR#: [id number] [birth year] : 1975 Acct:[id number] Age/Sex: 48 / F ADM Date: 10/26/23 Loc: [place] Room: Type: [facility] Attending Dr: Debi Mares MD Copies to: MD Ana Lilia Cleaning MD Ordering Provider: Debi Mares MD Date of Service: 10/26/23 [place] gastric emptying study: R14.0, R10.13 GASTRIC EMPTYING STUDY: CLINICAL HISTORY: Bloating, nausea and constipation. Gastritis. COMPARISON: None Following the oral ingestion of 1.1 mCi Tc 99m labeled sulfur colloid mixed with oatmeal, anterior imaging of the abdomen was performed out to 90 minutes. Although there appears to be appropriate emptying of the stomach on the dynamic images, there is a relatively flat time/activity curve with T1/2 for gastric emptying of 518 minutes. The images demonstrate a high riding ligament of Treitz and the small bowel overlaps the inferior aspect of the stomach. This is thought to elevate the counts over time and the T1/2 for gastric emptying is probably falsely elevated. Normal T1/2 for semisolids is between 45 and 60 minutes. 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, AFFECTING COUNTS AND TIME ACTIVITY MEASUREMENTS Impression dictated by: Ana Lilia Thompson M.D.10/26/2023 12:42 PM Dictation Location: [place] [address] Transcribed By: [facility] 10/26/23 1242 Dictated By: Ana Lilia Thompson MD 10/26/23 0921 Signed By: 10/26/23 1242 Normal [facility] HCG ( test) Isaac hester Ql (U)Ordered By: Debi Mares on 08-31-2023 HCG ( test) Ql (U) Negative [facility] HCG,Urineon 08-31-2023 Beta HCG ( test) Ql (U) Negative Normal [facility] Comment on above: Result Comment: PERF ORMED BY: [address] [place] [address] PATHOLOGIST DIRECTOR OF ARCHIVES RIZWANA NEGRO M.D. Performed By: #### [facility] #### [address] [place] [address] [facility] 08-31-2023 L ----- Specimen: [id number] Received: 08/31/23 Status: ENOC Paredes Num: [id number] Spec Type: Surgical Subm Dr: Debi Mares MD Tissues: A Duodenum - Biopsy (DUOD) B GASTRIC FOR HP (GASTRIC HP) Procedures: HE/4, Gross/Micro L4/2, H PYLORI Age/ Patient Sex Location Account Attending Physician Eb De La Torre 48/F [id number] Debi Mares MD SPEC NUM: [id number] RECD: 08/31/23 STATUS: ENOC PAREDES NUM: [id number] RICKY: 08/31/[address] [facility] DR: Debi Mares MD ENTERED: 08/31/23 [facility] DR: SPEC TYPE: Surgical DEPT: S ENTERED BY: [id number] RECV BY: [id number] ORDERED: HE/4, Gross/Micro L4/2, H PYLORI ORDERED: [...] submitted in one cassette labeled A1. Specimen: [id number] Received: 08/31/23 Status: ENOC Paredes Num: [id number] Spec Type: Surgical Subm Dr: Debi Mares MD Tissues: A Duodenum - Biopsy (DUOD) B GASTRIC FOR HP (GASTRIC HP) Procedures: HE/4, Gross/Micro L4/2, H PYLORI Patient: Terence De La Torren Theodore [id number] (Continued) Specimen: [id number] Received: 08/31/23 (Continued) Gross Description (Continued) Signed (signature on file) Christine Snyder MD 09/01/23 1731 Specimen: [id number] Received: 08/31/23 Status: ENOC Paredes Num: [id number] Spec Type: Surgical Subm Dr: Debi Mares MD Tissues: A Duodenum - Biopsy (DUOD) B GASTRIC FOR HP (GASTRIC HP) Procedures: , Gross/Micro L4/2, H PYLORI Patient: Eb De La Torre [id number] (Continued) Specimen: [id number] Received: 08/31/23 (Continued) Gross Description (Continued) B. Received in formalin labeled with the patient's name, date of and gastric biopsy is one mckinney tissue measuring 0.3 cm. Entirely submitted in one cassette labeled B1. Microscopic Description A. Two H E slides reviewed. The microscopic examination confirms the diagnosis. B. Two H E slides reviewed. The microscopic examination confirms the diagnosis. CPT Codes 33680e2, 81954 x 1 Specimen: [id number] Received: 08/31/23 Status: ENOC Paredes Num: [id number] Spec Type: Surgical Subm Dr: Debi Mares MD Tissues: A Duodenum - Biopsy (DUOD) B GASTRIC FOR HP (GASTRIC HP) Procedures: HE/4, Gross/Micro L4/2, H PYLORI Patient: Eb De La Torre [id number] (Continued) Signed (signature on file) Christine Snyder MD 09/01/23 1731 [facility] Reverse T3 LCon 08-12-2023 Reverse T3 LC 12.5 ng/dL Invalid Interpretation Code 9.2-24.1 [facility] Comment on above: Result Comment: This test was developed and its performance characteristics determined by [facility]. It has not been cleared or approved by the Food and Drug Administration. Performed At: [address] [id number] Michelet Barnes MD Ph:[phone] Performed By: #### 1 [id number] #### [facility] (DEFAULT) [address] [place] [address] US abdomen limitedon 023 US abdomen limited [facility] [address] [address] Ultrasound Report Signed Patient: Eb De La Torre MR#: [id number] [birth year] : 1975 Acct:[id number] Age/Sex: 48 / F ADM Date: 08/10/23 Loc: [place] Room: Type: [facility] Attending Dr: Debi Mares MD Ordering Provider: [...] Farley Jr., D.O.08/10/2023 12:44 PM Dictation Location: [place] [address] Tech: Brittney Otoole Transcribed By: [facility] 08/10/23 1244 Dictated By: Jian Farley Jr, DO 08/10/23 1243 Signed By: 08/10/23 1244 [facility] Coding Summaryon 08-07-2023 Coding Summary HTMLBase 64 TjytucojWQb0vKf+PGhlYWQ+P L3UKGTwG48aoKHfrH1qV9GCXG lOSywgQVBQTElOSyIgbmFtZT1 kaXNjZXJu IC8+QX5tLXLmSqdwyFGpa7F9t JO2H33wgt1qPHbinFM1AQFiGs Iudriwr0fizIy3PJzzYoalIaC t RBPxeV65ZXJ8tB30Mm91lZLot NUcz7fuiKk5CaHmLATvJHC0eK ztQYdya2ZvPEPaX25axOUwt6F 6 TOIzdZkgpFMfNyLnnPA3pW8rC Ydiqocon8bxcionLzn1ra85xF Oyn4X1aRM1L0GaddC7WAPsqPW g AlgcwHKFfO7hfjbkk8mgdnkyM tZhUWCdUDq7DQh2UBFyqVtbTs VaOI11TOL1PUGfzpCjL2XqTPH s zMlmVxW3n8X6Pp9CI1SPKdreH 1VNTUFSWTwvdGQ+VT92zg98C7 LfArujYwl5BPJuORZ0lRH7xQ5 n YZRyNBlgn2C4xQT8T5AydtDlg k0go7doWADjEUjnV69kwOHgq7 A0NPAhmHD3XCVwoShwVmOmdY3 3 Oyc+DYIrrTamp5RdPftns9hui 8jdmXj7OwerVCZnbfDbvJqwHB U0t5GePi0mMLLsyWS7wVF3fH4 i WmLhHvY1YOigT325EqMsuXXjV qxyI76bR6GkvWH+BHGvFll3AZ TifMwpCR1nS1CaYBDgdvzboCR m iDboJD9tWYSazrjoFSFweQ4xC DNcN6g6QiCzTsA8FSzoS7PyNW LsteagOe07aJ5iCiRfPaP7VXy u H5YttmB2AWQybKEcKKyoQKT6L 47ri9V3YOHhWMLqVNG4kIO9hO 1hbGlnbjogbGVmdDsgdmVydGl j JDvpQGqhG741AQTcrZnyGrHuS GluZyBEYXRlOiAgMTEvMTcvMj AyMzwvdGQ+KAFkGBB5cNzmQUG n hEQiZVnuPr5wwXsyuJqgRN7rP YFqcavgBLVtcZ5dZZHzpANbxW hjBQ4vEOUtmunex877ZrRwGQI 0 SXQhuAPdG9BrrG1kRdBhWYQqM ZDeO3ZycYNgWVsoV761FWcjSb B4JNNxygRpH7EhRNJklFpcSeN 0 q4F1Lo4Ft7NnxuinX5RuyINkB jIkTazhMGc4H8FgKelvqGO+PC 55ESDhII27RZh0NUH2uQeeGFz i GLKcG5EimQ0rFhXjZRBoEADjO yc+PHRhYmxlIHdpZHRoPScxMD RfRoVbrTomYS0bUr0dWJSxHTG v uFslqWCrYoLxf3zcJMZhUElmC I8iqAuhY4ZpvKR9CGUba4s1Fd 63A20gO0RahQQ+RRGznFB9yNL 0 cO5gZoQrSmU6JYpgW090AiMdk JXkYbvzy8nrh6vmiLf4GeA3JN QxluXtkZpkVJC9m9KdGn24W81 s IHdpZHRoPSIxNSUiIHZhbGlnb y7bqN5wNc7+ZAPwfVM1xXD2cP 8bKaRaRhZ7AFgzR574XuXwxEF v Thwyo6ajl7mzfKk5XqPiFHLip xHgtYsyHMS9o8EfYa26K8AzaH ytk2AvQjw6lx53aKVyr5S4jBI 9 B3HqFVLejyipyLJwlKhyOT1qA KDukcajEWJkfS7eVJWsZ5r4Nf WkZqJ9XNxvP8RoglC3HUTyqHF g YGSifAAYyX6rfnjma1lqqblmC qPqHOLtNTd9KYr4DWYgtSjfHq PfQBE3FtL8NSJ2bBXnsW7zkXv n lxnjsD7eGnc+UBW4rMXapOHZV H8iQrsagOP+VYVzNKP9pMyoEE cyBJLgjG3tMFRsX4m5TbGtPdF 1 YAhkF6CzqkF3JEInaUTvPOPra FQYfZ9ghdbav1mmpndwKuMxTX HhGFz9UVg7MBHbdXlbLaHbTVM 0 OyW5QPH5aNBpwY5hkOxgpxyib G9wOyc+LngsoFlsRZJ3NDr4O7 JcJnx7YTQinIaeSZ2lhWPpIFf u Ih6bwXrsuTduTD4qAIDlawlll 810JaYbx2dyIXRelOCbXSkmAO Y5O54mx7R6IZCcPYJaAWV1qOO 4 dK4eeFzhyrvzaTUxgRpiojAwn IhcIPaeMTaqH022FQKnbOonKd BcFKv9X0AfDgm7ARWwzHofUC1 n iTVlMSbjBk4ahFzvjFmjTL3hO OXdfblgo619UrPjl3kgHGMflD YdNYwkQVT4H60pg4G6RIAvKAH w SGE4pXZ4yG8lmCcltrywpRPxo JobulWrqHmaBJhwBFapV931YY XnnRsuYuBzsWa8E6SoZiu1ZPZ z gFfpBA5xqKPbRQyoYi0hgSosc JaqER2pHKEaacyov319DcAhl5 qyOXWhzZKhTMqpLBP8K42yb4Q 6 ISVbNRZzYIN8mJP8kI8qzZwtv jogbGVmdDsgdmVydGljYWwtYW sqO667LUNimPxnFcSpfNucykP g CSduTWc1P0NrRvicaMR+PC90Y IQeZM86mHMfkDAsj6dabYu0Im JgWFQeVXK8uKclVMxlo5BaXZT t Z86wiOTjd0T5CKNbbJhngZEeW dZalUL2rD3oMVblajtxw4qfdc iuSywdf8dpph97lL46Z40kECz p KCSeCRVySNFzPUIxrIffgp0rb G9wIi8+EPScyZM9fVI9mG2wLR FiRwT9ZDcvS616HzHkrOXgGlt j i1nqo0kggWd4JxA5DAGrjyApt MbaUZD5f9LlOz23L18vUBbaRZ DmLOPeTYDdXTLwfTirvk9dwB7 w Ii8+DAYyuBR7jMY5eS7mJfHkS fO7NAvnL810PpQryNNdSjcbU4 0tN8HobJS+PVJjXlo2ZKKqlFb s LZ8chXRsCOzrIx5gEQZ0GwMtW aEwBAjhP8HwBLCxjssbysshnR S9IQVwLLPrjS73Yf2muScuTLV w mZVBvM7fstlcv6onqxleVbZkQ JCmXDc1DRf8KWOgcGrsMdXpNW Z7HjS0TAZ3yHLjwQ4tqXflomy g tA2vM3QvYEHxkdktCh52zZ0yR bVpMxR2DBbeEmt+UdZADs5wHm TFVAEwBXvTP6oWGoSFUR36DM9 8 nJMno4D3aQF3E2QbHVMpisvyf kiodHH0TPAwNLMjyJ49yYEzLJ gqCt0ga1Z7b027UANbXNSvpM1 7 Ys6xgLlhIGUrsAFKnY3crwpml 7aqftsaUhXpLBAnYLp0XLn5IM AgsDjvWrEgDPL2ArT5UBX1qYB h mY1awFfffjwaxA5xXtv+MTAvM YKxNLl2HpvlpBJ+XCSdPDG0gD nmFDrkKQXasI2bGMVdE8d9HmJ w WpB4VPkbQ4CcOHBcoonmJy12u X9wJhMnFrW0TFslL3UomoX9ZJ ZacRFkQTgsUTV3G87vv4L9DXX w MWAiIQJ2pER4xH7avVjzphssz GVmdDsgdmVydGljYWwtYWxpZ2 11DFTgvUvfHoZ2RXkrTNYjVX8 0 ZL47ePWel9I4iJH2K4ZwRXYbg fpecfegqDU4MLIzSJPukS82kC LeCHlzGy6mo1S9h196GWCgAYV w eJ91Ed1ddKdjABUifSPElQ9xx cawc3mtzjcgZzOgQDBrFFz9UO a2COOmkLlySrSeNUD5RcJ8AMO 0 zSUztU7ifGioogozyO6hLge+R wUVXPfSOP84SC30kHWqi6X7xV U4E2CrBPWjmxipybntsOA9JOU u DBXxcW87zDRdOHaoEb3sg1D1x 596PFXqZRQdgY87Em7yqMhnDN PwlFYFqK1ohdueq3aoywioYoZ w FDEtDXk1ISc8DLTyyZcnYbKgE JK7WgR6PSD2rOZgsC4haDdefm vxpX3nZsg+D3C5J2UoDxacbOQ + SJ94OGDsUB87qSOjdVEgu9weu Yj5IqSjJFAqWBO2eSmtIWaxl2 DtHNAyJ97fpEPxq2O3VWOofIj h wZTvXjRqwJM4eI7dFAesfjapu 7dscawoAfmzi9rupx09lM71O9 9sIHdpZHRoPSIzMCUiIHZhbGl n qy2zsX7zCj6+MYIcmIT5jPK2f Y1sGeEsSvZ9FItrA071MtZvhE MjNgjud1cfb5wbiVy1VqJeHZF g diXtzJcxPXR4b2YaYo95Z91qN HdpZHRoPSIyMCUiIHZhbGlnbj 2gtT5fXj6+LV0vf5maes71tG1 8 dHI+YQKbDLJ7rXerNTacTAToq T4yTTirKiP6INEfUiHmfH28aH FrWBdsZk9biOvdbIapLP8mQAM p djcyo584MiTql9cpJEOiuIMhQ RedEAZ2C05do4Z8CNUkWHQuWM S3iJN3xZ2abCbihdzjjEJhbKb g qrRtiAjhOBhzDWmpZ466LJPhl WtjGkUfkAPeT0qxoqGOHL2pMb wvdGQ+ZPTlHAU4eLipLMmzNDJ k vQ0gWOVsX8h7KtGuToR6DAnlF 7MnpqU8KFBhuUBgYFSqlKRMlY 7oouior2bimsgzDlFhJUDyXMe 0 UUa1PVQiyNvwPjOfYYX2GlM7H PO4wZKyaO7pjNncmkvyvU0cHu c+RklOOjwvdGQ+QOCyPXT7uUi l YSphMHQvjK6pJZFrG2y9YmLpL qH7ZHtcE8RhumG3JPCpmTTxJX DpbLLGkM5bpnwsp7ngooqgVzO w FNAjWBs7EXt5YSZofQnkBqZmB PY1EhM9HPE6nKAnzD9qyAjkvh dbdS7wCxv+TVJOOjwvdGQ+PHR k SPP5uYdnQNezRSUemR4xYAVsC 8n0StQdWfV1WMmhY6SjysZ4TH IriATaAQBszROOqV0mcsozu2f v gbtxGhCnBUJvTZy8RYi3LFTnh MlyOyWzMNB5CmY3WYK1mMEnfX 6lmQkfqnmlvK1wYev+KVL8ZGJ 6 LV51PJ60O7DkHhdmbYYpwWB+P HRhYmxlIHdpZHRoPScxMDAlJy PltMftAR5oGg6tPIIiKPLerAt h cHN (more content not included)... Normal [facility] T3 Free LCon 08-07-2023 Triiodothyronine,Fr ee,Serum LC 3.5 pg/mL Invalid Interpretation Code 2.0-4.4 [facility] Comment on above: Result Comment: Perf ormed At: [facility] [address] [place], [place] [id number] Yumiko Sheppard PhD Ph:[phone] Performed By: #### 1 [id number] #### [facility] (DEFAULT) [address] [place] [address] T3 Total LCon 08-07-2023 Triiodothyronine (T3) LC 159 ng/dL Invalid Interpretation Code 71-180 [facility] Comment on above: Result Comment: Perf ormed At: [facility] [id number] Yumiko Sheppard PhD Ph:[phone] Performed By: #### 1 [id number] #### [facility] (DEFAULT) [address] [place] [address] Free T4on 08-06-2023 Free T4 [Mass/Vol] 0.55 ng/dL Low 0.61-1.12 [facility] Comment on above: Performed By: #### 1 [id number] #### [facility] (DEFAULT) [address] [place] [id number] Provider Orderson 08-06-2023 Provider Orders [id number] FF Normal [facility] Coding Summaryon 05-06-2023 Coding Summary HTMLBase 64 UbnqswpuLKv1tQr+PGhlYWQ+P G5USZPyV10szBTnkA0qG0VCHX lOSywgQVBQTElOSyIgbmFtZT1 kaXNjZXJu IC8+UG4jHMFqTtozoEEql9E4t FE0J54glw9kUHkybER2DVOkHc Qlbvlge3lrvAb6NQjxHhkoCaD t JWKsyV72OLA8fO72Ze63yKXwt PJlk0ppsCa8NoDtITYlZTL1aL ymOOtln5JiLZDoH02uyRMof8Z 6 SKZfeEmvuUKtNxFjdZO5wP5nK Zwcfpatw5batnnjStq3wz23qV Vpz6O2kVF6F8AlrfS2MOEdvAW g WhvspZFIkG4hmiqqf9foaownS tGwNVEwNNc0JDw0ENOpaYcmKt BmJX46JHM2MIYxwlXgE7YkPLN s hKutMsE6j6V5Fb7RT2AUFadlC 1VNTUFSWTwvdGQ+RB33jr41X7 IcKjmuZot2SHXqEVU6gVL9kW1 n NYDoABhmr7X5rYG1H3VkieNyh n2zq6aoXKZcSMxjM59lfZKxh7 R7EQRocML6OACgaVgnMpDbuB3 3 Oyc+BKXmkApmq9CcJhozu8hky 4lflUc0EbegQEEuaqGjaEpfOQ I1p8RlAl2eRGWskUC3iXB2tT2 i BrMgQnR4CGhuB817KkItnDYlC dhtC30eM6VodAE+HQYbJnc0VO SxzQtjBL9uD9IwYYZmbmwefWR m vTbvBF5fEXQhvizmTUTbxI3pM XKuI6s6DjYpZiG8PNdsK1SaEC YzyattBj18iE1xZfBbYiN9LTf u M8PruoD6VHHdmPUnQZlkIWN7Y 05fx1O0ZNBxDVWtSZG3fXG4uY 1hbGlnbjogbGVmdDsgdmVydGl j UWcwWEcwH064QJThaKthHbHjB GluZyBEYXRlOiAgMDgvMTYvMj AyMzwvdGQ+OEMqSQV2rZjwEJA n kIFaBRsnKl0ezRwcnXwkJD8mH IYgyissLFFvjM2nQDGfbOQilG mdJK4qNIQqjeppi122YwCiVFU 0 BFQhpUAdD3HrcC0bGaJlEEXlA QXnE6UrsQAbFHndX283DOqpCc H6SQJtuhIoQ9MbCEHkgNrlGqO 0 p5R8Yk1Iq8TelctvX3NdsSCzG yAkEvubEQj0F6QnGasoxKI+PC 22EQPiAS39LSk0TZF0oOhwJLk i WGTvE6LcpO4vZcPxFVWpZROiP yc+PHRhYmxlIHdpZHRoPScxMD NpKfLsdSzfNO5tYq3lOPLqTRN v mJlnfXAkVlUbo1ogSXOgHCuzA A7ctVlnT8RsvWI0BDZkr3b2Er 32P08jV0LxqHZ+TJSibIF3lIS 0 iQ0gSnEpDcB0JFzbK652GfXcj MRcPetgt0cup3sbuVe7YxR4YL TkaeJmlDbvBRI0w0ZoDo38Y54 s IHdpZHRoPSIxNSUiIHZhbGlnb i4tuV9kCm3+KNDunPB5cPJ0aX 4cDxRiUhU2KYxiZ600HiLypOV v Kbpxv8hth7dboOi7KnIpYIJep qQjqHhfTGM9y4FiZf03U6ZakV aci6RrAix2rw07zPXwh2Z9rPB 9 W1BrEPYaxxnyaENgzRvaSV8bY WTurtqkJHMhxT0rKLJsZ3c9Kz OoDpF9VMbxH0WbcbP9SPZnfSA g OBVoqNOJqL1iiudee3btctjnR aMmEWSwYLf5MLm9CQXcwSfjBj SaMKA0DmR7JHU5nLVfjC2jlBu n swngeL4gSqd+WDA6pHPkwCQVV O2oNzqfqYO+CMDcAPF3eFftOE pnYTZxiV6oCPZdU5f4QvOcCrR 1 TEdwZ4DvvyY7QDXdvUWbSEBgk TTBeX7wvnwrj2seapsvWeTxEC AdQTf5GPv3OJEkdGueXgKdFJU 0 AcU9VWO8iUGyfB7gwLbjgxdev G9wOyc+HtbcwCkvJRJ0BLv6V3 KhRkk0VLCubZjvVN9tjYMjWMg u Sa2izTfzyAeuMN7bAOAkgvkhz 700XcQsq4ipEZDbjNJhAHjsVC J5M02ea9Y7EQXhAOMaTRS4lCH 4 qE1jeGnxaxayhCRngAvpkxTqj QtfGNtdTUmuO134XOYhwUboAl MtHSb0K3GnMja8MTFjkThrOA4 n dGIwQTmcGa7baTknqWseFZ0iY BPjmhxoi020NhFbn7otNYMohW ZzXFgcYWU2X73bn8G2GYAhOWZ w HUU7xRX7vE5pqNeolcayoONdc IwviwBkxHcyTAggVSubN984IA KliBxdLhWbaLs7Y3BySei2QFW z aKkzBQ8vdGPpFLujSu0fsSojv IczON0yCOZaibgna705SjGox4 zyQPPrrXPkTIoiKJI7O59bb0U 6 RAHdXIKnXUJ0mYV6dS8phPzyb jogbGVmdDsgdmVydGljYWwtYW muJ919KWAsnHmsPzNhjNkxzeO g YQodXAm3K1KdYmjbvME+PC90Y AUtFJ89gCEhhHCnq4knpWg1Iy DdAPXqJJZ7oGkjXGusd1OsJCI t G01cjZKtk4A4AVMymGilaXXyI aXydYM9cG7rNRqtnjhke6qjsl qfZnald0bmgn89jT79V37nREq p FTNmLCJiPCObMFGtdXjtwc8yg G9wIi8+JSKubBR4fWO7rK5kPU GjZsJ9EAvxG629BxEscVFmGgw j a1coj8mveDz6SbQ4UQBautWre CwsXXG7l8JwWv70V52tONhqBP EhQCNmTKZmLINiePtili9pcP2 w Ii8+BMIecCH3qXT8bL2fTiPbK wR9WEqqN802DfGjlGWzBfkqW9 6nB2MjaHP+YBLwSjl5QMMwiUg s YB7quWHxFSmiKr7cNVK1LkTrC pYkDTlsF8JiTTMphhnhwpronK U7CPErRYBxaH14Yj6meBkfVJN w vSUOmH9qqjiht4nvsjrgOdJfN EQwCGk9XVq3BDAzqXkeHuQwVZ U2NyV7ONM7rHLdwM0lkVdhbbk g yQ2eC1XlEMTrlrykUt45fC3fT fDgAaF5LFykBkt+BaCHLr3mMw GWGOIrQRwQN0aVLfRQQT07WF9 8 dPKbs7D7lWW0E3XrUIRjedqkc fgqeGK9KUZzUJQeaR50jFCoTD xkKc8gn3F6l323UKEeZSAywA2 7 Gb9zjVzbVGKacCGMdH7iljovw 0wqcofdAkJhIFOzPMz1WLn9ZO NvfLhtUcHdETK4OsY4CTW9pVW h cI2jqSvwgilgoK0gSyg+MTAvM BPlSUc8YueodJX+IZHsJCW6zO urYFzbNLCesR0oFTKxJ0l8ZhN w GgY7SQauC8WiRUApwprtCp31z V4fWkFpDrJ8SQmzH8HtqpB1EU WwzROsLPzaDIT3A62mv4T8ZKP w VLCeEFQ8hIP9jI2gdCgnssycn GVmdDsgdmVydGljYWwtYWxpZ2 04MYAluByfWkE2WNsiKFIzHR6 0 ET51tRIvz0K0aIR8C8ZdDUHmm qrlhfztoBG7MLLcJKDnxQ21jT FyKMosGi4mi5O5e956WVBjWVK w hS43Zm4aeUqjADXmdJLXaU3jb etcx8rccowgIaOsYKMrXRs2GS n1PLPyoPdjZbGqIZL7WfH9WMS 0 yHWizS6xgAbzanmsiT5gGvy+R yDLIDwIQC72XO39nMTas6H6jD V3A2EaOKLbglrlhsfjjCT0IMK u NIMdzJ99uELfIYroAm7kx4J7c 242QNLlPLCfrW25Rc5prWmnJD YnjMZOgD3nugjfj2lkegpzTnZ w EZDqAUx4HOd7OTVtxYylYsEdZ YT5TcF1LLB7cJUoeW0dmVuoco qhqS1uKua+H8H1H6ToRzxcvGA + ZT02UGTbGA55dVVpaANcj3xve Rl7FaBfSZRmIAU4zIyxKTzgm1 MyMAKuZ04lcUVam6P2ZOXfcIz h qPLlOnAflBU7hY8zICmmrfcyt 1alzdmwAldup5tewd05wG95X1 9sIHdpZHRoPSIzMCUiIHZhbGl n uk9vhA7pNl6+ZVFpmYW8jED8r I2mRkLdLfC3FKldS734QiHqkS FrOcucv1hvw6fflIo6AqXlPOZ g atAayXxbHJU7w0PjLk57Z21dK HdpZHRoPSIyMCUiIHZhbGlnbj 6zbO7oZj2+DT7hk2ceho18jF7 8 dHI+BTOhWEO0hNjiDUjyGUApa M1jINvxFyV2SMZjChRakA89yP BzWYfwIj9pdDuxdTaeSD4gDKF p zwcrp004WiEcn7nkTIMrqPQbS EicXYJ1T53sz5U5KQPdGLNuHQ M7eMW3jS3udQmrxwrmrLAveUs g pjSlaDqoOKjjBOdgT799KESmf HbcIoYcvQWeO2nnwpHVID2cUo wvdGQ+CZPeBJQ7aFntVFtaQSD k vS8hFLFtD0k5DtNlOmB1HYqpI 0JuuzH2XSCmyTJjFZCyyYPStI 3nwewad5xieexyWiViVPUxWTw 0 XBa2VEIzuGviTtMhRAS0UsE2A SP5rGWngG9dhKiixmktkY1iTv c+RklOOjwvdGQ+OAFrSLD9hKd l LMlzYXArtE8cXRKrE7d5PhLnC vE6ERtkX4ZthzS4NYZrdFRhIP DdeHHQfO0tmestf9osdihqAsW w NTTxROy8LVv3GOQybYsrBaUqI YS7KtJ3VXI0cPLgeW4arJrutb ddjT0rPkn+TVJOOjwvdGQ+PHR k GVD3mCokIYyiTNVimG1iHJMdU 3i6EpQvTdE2RDbuC0YxesN4HV DkrESqPGOgyBETyQ5uknfzz5m v nmhsGuFxTSYbYUq4TMk5BZKvn GsrNiLeORC1OlO7KZL8nNFwuZ 3ivOmrufuftE7pQrv+QCJ6MLD 6 ZB20BR24H5RhPloehVEkoPI+P HRhYmxlIHdpZHRoPScxMDAlJy LpqLroVP9sMi4dMCIdFUFshSm h cHN (more content not included)... Normal [facility] T3 Total LCon 05-06-2023 Triiodothyronine (T3) LC 141 ng/dL Invalid Interpretation Code 71-180 [facility] Comment on above: Result Comment: Perf ormed At: [facility] [address] [place], [place] [id number] Yumiko Sheppard PhD Ph:[phone] Performed By: #### 1 [id number] #### [facility] (DEFAULT) [address] [place] [address] Free T4on 05-05-2023 Free T4 [Mass/Vol] 0.52 ng/dL Low 0.61-1.12 [facility] Comment on above: Performed By: #### 1 [id number] #### [facility] (DEFAULT) [address] [place] [address] Provider Orderson 05-05-2023 Provider Orders [id number] IFF Normal [facility] TSHon 05-05-2023 TSH Qn 0.06 m[IU]/L Low 0.45-5.33 [facility] Comment on above: Performed By: #### 1 [id number] #### [facility] (DEFAULT) [address] [place] [address] Coding Summaryon 04-18-2023 Coding Summary HTMLBase 64 PhyvvxmbYFa4tUf+PGhlYWQ+P D8QROLjK13qdQDxbV4vN0TRGM lOSywgQVBQTElOSyIgbmFtZT1 kaXNjZXJu IC8+MY7gOHSlOjuexSUgi4V6x UD4U70ved1pSJmphAJ5CWNxHc Hpvqbjj7ekiAy0OWzhVjtjEdX t TYQwxY18EHW0fD38Eq55pTOxr NLfu3ybuWj1GqJrSUGeGCW8bV giKSlvb9LhJQVsX53drBHgn2F 6 NWHgxWsxgRBuRrGmsBB5pN6pO Riyzbxvr8stojghNbe0co06cR Bwv0B1gNL6C1LuhaQ5FBIquZV g SytfnVCXfF7fcfxnf0mlnybmO sEiKVQqKNa2SYr1JKQpwEdhPi EqTI83KSO1NENramUbX8FyXCE s vQzqZqP3h2I1Cc0OH4ATSeghQ 1VNTUFSWTwvdGQ+EF35pi31L9 BdOwxtXbg8FRAmYUV1kTK0gV2 n PRCqGAagl9I4lIW4Y0NgmaZvu s3rt9kgZMOvIGjrW45ruNFkc8 B3RDEhqUL1FUJmaVdvOeMxvK5 3 Oyc+ZUDupSzjr9ZcBagge9qel 0bibIh4AwutWJWmrcAunKboHE G6r6IlWo5nFAYirNH3lQV2rA7 i NgJnKiU6EJohY342WjZgkWBxO qlpA06hY8TdkYB+QCHjGun7PL TlaWlmNV0sR9QpHYSehinxzIN m rUkhWC3tACIsrocoPUMusN8uM LJzC4z7ThUnVdU7EHikK4RfBV XmzcdkYc20sD8bWpBhXuH9ZPa u O0SznsK1CSNxfVAgFSojAMW1D 59pl8Z7EUPeQQJvYIN5mWU6hZ 1hbGlnbjogbGVmdDsgdmVydGl j WSqqRVgqG713CTAlcUgrXzXqK GluZyBEYXRlOiAgMDcvMjgvMj AyMzwvdGQ+VOUwRDE5rAxeEPW n aLXmWBdtWm6xuMhbiTanNW8tM CYajfsyMLKetH8wHRLzlTLyhQ ixGN6iCTFdllted732ItLbFEE 0 PRAqkLFpL0LgzG9bQsTnJJUuZ BJqV7OffICpRYbtP596VIbfFx T7LVZllpXeL4DyNUPttCycTrT 0 n3C3Wa3Rl7XuwafcI1IdwWImS dAvWiydLCk1C9YfMfmnjNA+PC 96QCXjOH97XKe8PSO3zMgtUAz i QTTmY7GeqL7tXmJhGNUeCWXhQ yc+PHRhYmxlIHdpZHRoPScxMD YvVfXyqVvpAB8qRv4bJBIuGSV v cWteiAOqLnQwy1wqIWGtXDmbU O2weAfoE1YwmYM0IEEwj8r4Ik 83J33eS0ZhbVO+NZHynNM7hGP 0 jM2yPlYnApK2ISdmK405QmYhf DDxAqdfa7bde1dqmDh0IzT7QP ExjnEdfVleZRQ3f7KqLf10P45 s IHdpZHRoPSIxNSUiIHZhbGlnb f7qsL4oAt0+BYOujAQ7cUF3cV 4vBpWnMbG4HKcmE225UzStcLM v Ipjqc5bhy7unjSd7RiOcGICkh iJimOveFRL7b9JdNh99B6ZgzM rdx4BjBbb5fy41jHMzp8T3bMG 9 U8KwILSdbttlyKYckHeqJR2cG XYylnxzXGNnuP0lUUCuL1b8Fq XeYsI4IScyT8SlweS3PAIavNU g ATSqqCYSuY4fjardg0vzdksbR pRtUMGoAZi3GQi9JQFifClyMi RfKZF3EjR2XAT3tBFloM6vvWm n fyjhwO2nItr+IWK4uGIljAGYK V1cHftfwPV+IWUlBUY7hZzsSZ qqQSSlvY7kUIDbP1w0UiBbGpF 1 YBjsL1JjgaV1ERAseQJsCPQwe DHNrC0yjngfe8kafepbTgNmUJ SxAJh6YNj8LEWbxQfeFaYzWZO 0 JdX1HKZ4gWCqdE1ooXcfpxqdx G9wOyc+EidpvHlqWUA8SKj7X6 TqIvp6IDLanGftQJ3jbVOcGSa u Fh3cvPtnvPpsBQ2aZUNldkocw 210XrLwx1rwNBWohRLrWQbfUS D5Q53vq7S6CUHbYNVwXPY3hZH 4 fM9ytCganjjtvGLpnDpphmIld RdtRGqiNQjeO265EICxuBefXh SjBQu9I3DcVzz0NKTtlGejHY1 n eKXoGVkyCg8vpXtpeFirTJ3kC KPizselw173NfIif6paFGPhxC FtYIboMCH9F61rv6G0QSZtBBP w HKR1uMP6qP8qzQonbxbppKMdb VwqozTgaMzcXHwfSQleL635WO HamGljZhIjeRb4J9EsBpp1NWG z mSnnUI3qkWUrLJcnSa6ajKrfk NaeZO1hZHVmznkxv536ItNbx8 huDNMlaIWiSFblIIJ6V04dl4V 6 TULeMQVaPAN4iJX6uF7mtOakf jogbGVmdDsgdmVydGljYWwtYW qfX631HKOmcMvuOcTafFzzcaJ g OGjbOHy8P1XeJkfsjMB+PC90Y MUgPT47kPVpoOCuo5jzhIj9Lz RpQKUwEIH4pRopMVqfy5HiTWV t L95vqZUto5H3NXCexNuohRVvL yFlgCH0mC2gOCedaobdn7csqd xrQvcti6xvux66gK82R34tHDs p PWSgDTStBQWzBNFlbFjzgc0xf G9wIi8+OTSgjKG9qUK7kW4aVD ErDfF0OPmqT439YqTztKUmIfv j b4bgn1ecrYx8LoW8JSYgvfHrp SspPHX4r9BfKw93Q12aJAaoIV CiABJxQNTaZFKizLjllj6coW5 w Ii8+SOOgyMZ2gGN4sW4sBcBfK hZ8UHuzY640JfQzjLIaFloxX9 1qL5TkmTN+DPIuYtu1AZLycGv s RI7waUCoZZluAt0mKIK8ImVcE rHsSXpfF5LiTEUoawswiwhryK O6KSBvOOJuzN55Lu7zcYqtJXE w wCNHoM3dukpty8pyzjzvKtOjZ WMlZLl1LBs0NKZmlOjyJfOjAA R5QtJ7FVM7bAWyoC2ynAmyrtw g fP3pI1KwVNVzaxjjRe92mY2lW fVdZjM6YBeaPjq+OoMIIw9uHr XSZQDxKIzIY2cSLuGAZB21MR7 8 eXWps2N1mGF5Z8XiOWUmijofj auzlHK7IRYyEPQgxC41bOTkPW esYo9jh4L2g273KXZrVRXqzE9 7 Zu6bsAeuSDVllPNCqP4gxjgsu 0rjfyspFaQzVMTbLSm5BPj7TD VqxAkzOcOrFJX1XnE9WLQ0gSM h wB5lkPthzgmhuL4wOla+MTAvM SVkIJx8PvgtrJQ+DFKhYFL2lB naJAkkCZGmaZ6fQNHoN9b8CjF w YyC3AOouS1OgDAJdunbfYu04a L1eZuRqErE9STryL7PpgwW5TS FmjFHlCBdhPKH9F84yf0A4FNG w JFFoOBU8pWC6yP1ioVubqpufa GVmdDsgdmVydGljYWwtYWxpZ2 13KZIndVsgSpQ4LCwrZSDeGN9 0 UE46aKEsq7I0fUW5X0OgIIBti egfycysySE3MYGdBNPriX69gY SlSAqyIr2pq0F6t406XSSoUFH w nF08Rx1hdMamMOGjcBVIoP3oh jeqk0ajkflpTjTcHGPoHGn0DP w0RIIfhWanOvGdHZI8WwX3FAS 0 mRApjB4ybPgjoidshA8zQbh+R cSNXMmMIR44DV14rIBrh3Z8aC N9W5GkTHKhxothzjwcxQR6GZB u LRFoqU26bKScSMnoTs2hm3D9p 767TLCuJPAebD26Gw2xpEnnIJ JzeICDpO8rcmrlc3ywphmrWaD w XLQzKUx9AEw7IJWerZksIlGnE XI0BvW4LHQ0uEYwfC8fcDkitp buwW8jJbj+Z3S7V8FkZruhvAU + QK86FPXyXZ03nCDnsWKrv6jao As7AnYhLLKaZLN6sPijCEwbg4 SqZUCgV22uiREdp2O0BBLlqCj h xKQhRzBpoJK0sO8zWOwtmwxjh 3idojeiYlzdz5clta12lS78E4 9sIHdpZHRoPSIzMCUiIHZhbGl n tr1yzF4oBq0+OSUpmQP3hOV3x Y1lOdAyVzL5OOjgV143CnDwbS YuEbuum9eno6rihDt6XhMcNDT g htAhnRjsHAZ9x4FwUp55K16pQ HdpZHRoPSIyMCUiIHZhbGlnbj 9bcW7wBv9+UQ6ev4xdyh15rJ0 8 dHI+LEStXWM4iTmsUZzaOWHzb U6wIFrqQkL6PQZnQdWnrT30tL QbCItfIx7tjUcsxWdqKU9nCCX p mezei970ZkYon0oiRLAxzOVaY VnoHWV1L14tv1G5WVRgFCBfZH D4hVL9xE7zjFkmpteahMEcnHd g xrFlgTqoQZiaUAjuH415HNCsf KsgHfVnxQPlM8rmwsKATU7kMn wvdGQ+UHPuYBW7kYywSMqxDAP k uA8yECMyF7x7PdOaUiB5AAndM 0TurqA3QSRzjEOnTIBlbTUBsF 6jrxbwe3tvxecuUgFcEDCyDVk 0 ILf1CHQbwQbiDyMrPDW3NdV7W TZ6xUDrmE7qsWambdrqlA0yGc c+RklOOjwvdGQ+SNZsAYU2zSs l NPxrBTCdhO4sXXOrS4j5WtMgW pZ6QDxcL4RtozZ4UMBqhIYsMB BsnCHSoH8qyfnyd1hryjsfWtB w LJKsOMp8EEz2KROihQelUrFuO PJ6RaQ1ICU1yMLzgZ8lrMpzbc gzcN1yAsn+TVJOOjwvdGQ+PHR k ROO4wIdwKGetFPJwaT0gJCShZ 0u1TkSxOsE8AJfrW2WybrU5VY IadDSnXCUyjYZBkR4coofyx0a v ewihTzDqBGPtUAv4OXa8AVSzg DcyZvOvRZX7SpH9MJO2lMVagO 1hqWatmeeevR0pEcm+HPI2LOQ 6 LZ28EZ21Y1MnDvzblIDluFM+P HRhYmxlIHdpZHRoPScxMDAlJy WxhLnjJF5fCe2aVDUyCIXzwHn h cHN (more content not included)... Normal [facility] T3 Free LCon 04-15-2023 Triiodothyronine,Fr ee,Serum LC 4.4 pg/mL Invalid Interpretation Code 2.0-4.4 [facility] Comment on above: Result Comment: Perf ormed At: [facility] [id number] [place], [place] [id number] Yumiko Sheppard PhD Ph:[phone] Performed By: #### 1 [id number] #### [facility] (DEFAULT) [address] [place] [address] Free T4on 04-14-2023 Free T4 [Mass/Vol] 0.65 ng/dL Normal 0.61-1.12 [facility] Comment on above: Performed By: #### 1 [id number] #### [facility] (DEFAULT) [address] [place] [address] Provider Orderson 04-14-2023 Provider Orders [id number] Normal [facility] TSHon 04-14-2023 TSH Qn 0.02 m[IU]/L Low 0.45-5.33 [facility] Comment on above: Performed By: #### 1 [id number] #### [facility] (DEFAULT) [address] [place] [address] [place] Thyroidon 01-26-2023 US Thyroid HISTORY: History [...] thyroid nodules on ultrasound proposed by the [employer] (ACR) Report reported and signed by Kin Graves on 01/26/2023 1140 Normal [facility] Specialist Reverse T3 LCon 01-17-2023 Reverse T3 LC 15.7 ng/dL Invalid Interpretation Code 9.2-24.1 [facility] Comment on above: Result Comment: This test was developed and its performance characteristics determined by [facility]. It has not been cleared or approved by the Food and Drug Administration. Performed At: [address] [id number] Michelet Barnes MD Ph:[phone] Performed By: #### 1 [id number] #### [facility] (DEFAULT) [address] [place] [address] Coding Summaryon 01-13-2023 Coding Summary HTMLBase 64 HhyomighOQo8xJb+PGhlYWQ+P C9MEINxD76kkFVrdO3JE2nROB 2CTVCIUCNUML2DRE0gkTW5QOb eR8PugqVo RkyjaHDiCQ97NNu1HSB3xZquB NdnrW4fpBEqW3e6PxZlGK33aT 91XNwgVTGvRiZ7XcQusutueIK y C3gwBxThiLSgIqz+PHRhYmxlI HdpZHRoPScxMDAlJyBzdHlsZT 0gDt4lMJCzGVOtuRgqnHMuYkE j f3vpBBFpMJcjFJ1bgUqnH7Gbh QG3KINhd3p7Lz06hTT+PHRkIH Z5iFwkXXuqz318AwSfx2zyXMI 3 tEVvWZofEDO5C99gz4U2QWPiX RQbKRP4rTK5vO2hpAmqepzkC9 OasAPiWzU8FCH3jHYpyJ4inUc n oqmvyR2oUou+U71FUG6TYCGCE M9CMji3Y6KoGfveqEJ+PC90YW KfUN52lLTcbIQif4hqnOb8NnX w ONMcCOW4kPsgSCtmo0OjFGKzM 39obLIfx3H2GXEfnKsvhCYsWw NyjRB5vV8uMObtdzvbl4nrdcp n Oiyur0dlhc43vL68L08dXKzyN MCpKVX9MPClXPCxoBknnu6obX 9wIi8+SFmky0emr2ockDh5EqZ w WRWabzMdtKyzGVO6w4OuUo70T 9EztJhlh3UdQfs1ru54aLAsj1 B5eTQ9TWsoZCCrmG1dVYwqLxD 6 TTItQaAsoR19tFMwFCdhXe4qc NladIwmLM1zSXSazzftMXEmzC 0fVSBviUGlaDmbBG6hQXGzrsl m z593HqMsETU9UTPixLVyN0Hpu N7lEhDgCRYxVMLlM2GjoDVkRU laT424ENufUbK4FIPhmoHhR5H s YPIgnKdpKkP0t5D7Ha9Oq5Xjz xoaMXC1VNvrDRQ5XiQ2WgCcZa P1P2UsPsh5FYDcrHseOD7gN0D h HMVrezeqhvvihEJ0JRFeMJUbx U27bYPiQTqcLw6ru8C9f352ON FkEBWljU10Xx8gyCagTYQvsZS U oW2fexmzf5zuqqfvZdRtZWUnW Tp7ZPu1VRCypStrMxYgZJV2Jc J3ESD0rHHrtF7trMzmrorikW9 w Oyc+S88rhE2cKHD4GVU0rozsU NBpjoOxPL47XS19Q6YcDlaehP FibGU+HBImmrPguNwaIF7oHnO j x2pih1SsEKpyH5KfOUPoDNuzB mh4ONPpSJO8aZI4rP1jACEsJL fym0T1gHE7M2SjehVuad9ta7z s MWCmMTatT71uvZQlg0B7KBSkc DV8RQNymOehZuYrmC64Hmi+PG FkcGhfx3PbAcvva2hht0mhhCj 9 SaYtSCJujdFzzUhfVDD9w0WgT q00A55vTJncKZVjUCNmRXMeHJ ZyzNfyaz8nfI1gCu1+PGNvbCB 3 iEN8hS9qNJKtQbF0CMiuZ108R xMbuSDrRrmze6kof8uywWi1Go YvBFVujmEuzTqgEDG1a6WiTr2 8 B89eALvzKUYyEESuSPLaKXGgh Askva3rsD4tNl7+ID3ki0kteh 02aA57yMM+NYPrTKC6zEzgOJw w NIWluI5hGThlBbI3ODLgUbJrl S76hZClVVwqEk3waKvjmYlnJA 1sNRSdifjqt349RlUxs7rnMLD w jFSpOAftPJW0F39fp9W8JVGkB XCjUAN9hRA2tZ2kiWxeqnvaeY FqoImvjgUqbQeeCQvbAQeaU85 6 IHRvcDsnPlBhdGllbnQgTmFtZ Sn8T1XiFom2XNNttPhyXP9tzX YxHYhlVz8gnHdnxHuxFE6fDNY p oygin601FkBmb9juYMLipIBoK ApzJJV2B45dv0W9RUVgNGCwJL M7fQO3oU8weZzaxtlpoTPinKm g cmWxgQvfZWrnFXbhE307RANch UszRvMmjpNgQXOkzCH3GO51QI 89hBVmg9A4iJS9J6DdZPHilrl t xsalcGS2TABoFXHivV86Pc4gk UdzXs1fMWWnSMC7DIXpdMYoO9 VeqC1gUeXeSRVuZAIbQ0CcuAH t DGwrF961LUrqRfE2XFTqvcKgU 5LwIWHlcDucZbD5e4G6Sp3FA5 Y8VN13HH68jFXqv9U1fIK9G4D h NFIompqhqvzikBX0PSEyIUBnu O35Wx5gwLswCu1tLGJgGOH1LX XshMNqJ7BnxE5vJqUxXLSrRVX w T9SxbBBaFKqxL817PYpmBdR9E KPoqyAbW4AhCCKulVquJuG4j7 M1Bl7CDMs9TM86PE20uFIaq6G 5 oAK3O7CkBIHjdzvocgmrjAJ0B DMvZGFeoH46Hj0rnUefPi8yPQ DxIZP8XIGqdLBsB6LlzA6wQqD j MJEqCXQeF3KtnCGyBXbzE918J DxxEcH0EFAuzfGzL4BzOXXxyM mnLtN8t3I7Fl5ETWSsHQ60KGL 5 wXE4CT82EN50Z6BrPgabrVHhx +PHRhYmxlIHdpZHRoPScxMD LlBbYwuIleXI0jBn2aBLMeLBM v tVyrqZCpRyAuc5dvRWYvJXnvW O0uuBbnG6KinZY5HYUuj3x1Dk 36B36nN4KvfKG+KUPdwYN7fRN 0 pK5bZeTdJjO2YRqcV212XhShq WGrNgzqc6izw3sppAj2ZhK0AJ IcvrNguIioCNI7f9SpKs13F37 s IHdpZHRoPSIxNSUiIHZhbGlnb c3yvS4hYv7+ZQBcuFW9hJJ7hG 3bAeMoWzC7LWmtG904BdJyjPP v Vnnnk1eqj3myrGg9XdGtEXGpt eArdPebHTJ3k9MzJh35D0FccM pou4VyWmg9uc05qSEke9R1qSU 9 E2NxPAVcymrynOLylDhwAD1zO YMgfcjmPZMjsA3iOTJqH1b8Rf ZjZjK6CMjlO0TfhjP1YZAvkOD g NZsjQWQ6L02oa2D3YQZsRAPiJ DO7eGR2lU9bpUyshlailFQyxW vytaUgjCfuOYvwDAepS833ZVD v vYigNMQpzD8bEDHwbSBolAifB C1zZQTebzlaZiWDVbNZOErZPb FLHBJVHQFDQT0qZHhmiWX+PHR k ITK8xHueDCkxNWTgqJ6xYRDlF 8v2QtHbDiL0FWdzZ0QzZGFvdy zlQq74gG1cTrQyQgD4NXisE9N v wvG7QNZxiGQuGCekFYX6G15hf 1H4UMOyKWCoNSJ2nTY1bP4daW lnbjogbGVmdDsgdmVydGljYWw t DHxmO049YFWsmBayCsShLlK5M kP4Eka9B8YgLun7DMFndInsIF 8hsYXcIRopXg2kkSlcwMuvAY2 w QZHlpxvnGEAsqE4oINKidHLel HttCN6lQVHnhfbno883NnDzNQ U3XDJjiFVxC7UqtM0tPtIkMTH w EIYuJ5BexMZcUOsfL768LJrnP cI4SGAupmThA7VnJHFdnBznJh H9w6N2Dc58ZFWCAQSwzvkbmXN + ZOVuKOY5dJniAYgkLUWhcL4rA WAeS8k1AcMhCqO9QVjfR2FxPG IjdwzeWe17gL1jWbGuPrE6PBk u N4TmzsL4EDUagLCkQSbeXLP6L 66un6B4WMWvNZTgWFB2rAO6zQ 1hbGlnbjogbGVmdDsgdmVydGl j IVddNArbJ092ISZhrAagLiZLV UFMRTwvdGQ+GLTgZOV0vZadAK mzIPEtrW5pQCTjV4j7IyMmPuZ 1 QXoaD4KvUYEjlmutFm64hM4uY kRkPdZ0GYipY1GsurT0LTIglI UwBAedDRL7K04ui5F3SVQgFGV w BIY0oPK8bC4oyXwwhybytUJin BubpgCcqXgiZIteHXfpB065IN KdkUouMs1LZZ63VN51B1VfEfs v dGFibGU+PHRhYmxlIHdpZHRoP RrkZGSfMyYxeUbcID8wMy3tXR KpWAIepYpfbXHgSzRhk0tlNOB z CAkfHH0teZeaB4JpeOF8JLMla 2g9Pg12V33gO4LvbRH+PGNvbC J4lHC1fG8eInWaEyG9SPmaG97 9 TbLbiLUnEfioy7tzo3sddYq9L jXdSEUvcnQqwRapZDW2x6RrAw 53J33tQEtbMGYlVYNvIJYrXGR h eAftui0eqY1sNv0+BYCbpAP8p WT0aO1fVkJrSkK7WInbN536Br TdsSPwWdchT36aB2BpnSS+PHR y Mpa8QDTzxJpgBO8viHPdEMkkP q3fWQK4HaDrMkGnTAxqT3WmBP DitctowxxlnZG6RNDsBYRiuL4 7 Ux2maXkbKf0gQBHsHGP6KZFuv SDoV2IqdA6cQxZyVBApAMXpC5 BslMUhFCzaW869XJprZgB9UMS l fbTqH9IgJORyqLriPcN4f8F3D u9KoKkejVIkMG7zXnEwZGh9E7 AsAgj6AMFxwTmqEA3ioIRbXEj u Pb6fnYoexBatNX6hIHHjtnkzt 813UdZuf0rsYOOyeXXmWCjlNK W7K86kn3S3BVFuITMuWCR9iDB 4 qC0ysRqacseazCRgkJxozyVfy WhvZBqzMJzfE917PGFgqBtxPl GWUxi9T8VyGoc1MPQbgBwyXX6 n nEJoUGudNy2clDmnfWpyQI7tV MGngoqct557VcNxn7ixFWGvyC IlLMfyIWL7T45ni1Z4NGTeHQZ w QMB7kBR1rQ7nqJovubmtzFNvy ApdehSuhCnhXNtkKLuoY296YP BjwGkbIr0GSae0M9MaKqs0HMM z fCulKC0yePCjGSbnZg5yvIzfk PsqCE6nXKZydxeqa852SiCgf2 soYWWuvUSbNNkqRBN3X67er7O 6 FZAfGNPrEHF5zMX4iM7dsCttd jogbGVmdDsgdmVydGljYWwtYW tcA244EMMpdVybItEurQBtEej v dGQ+XS45uu14S5SvIpceKmr9B GIvGHF6mHR5mR8bQGZgXJykc8 I3iET3D8VbqhZcut9xe8aaMZM z ZTo (more content not included)... [facility] Provider Orderson 01-13-2023 Provider Orders [id number] FF Normal [facility] T3 Free LCon 01-13-2023 Triiodothyronine,Fr ee,Serum LC 3.3 pg/mL Invalid Interpretation Code 2.0-4.4 [facility] Comment on above: Result Comment: Perf ormed At: [address] [id number] Yumiko Sheppard PhD Ph:[phone] Performed By: #### 1 [id number] #### [facility] (DEFAULT) [address] [place] [address] T3 Total LCon 01-13-2023 Triiodothyronine (T3) LC 135 ng/dL Invalid Interpretation Code 71-180 [facility] Comment on above: Result Comment: Perf ormed At: [address] [id number] Yumiko Sheppard PhD Ph:[phone] Performed By: #### 1 [id number] #### [facility] (DEFAULT) [address] [place] [address]37 Extra SSTon 01-12-2023 Tube Collected Yes Invalid Interpretation Code [facility] Comment on above: Performed By: #### 1 [id number] #### [facility] (DEFAULT) [address] [place] [address] 31161 Free T4on 01-12-2023 Free T4 [Mass/Vol] 0.75 ng/dL Normal 0.61-1.12 [facility] Comment on above: Performed By: #### 1 [id number] #### [facility] (DEFAULT) [address] [place] [address] SCREENING MAMMOGRAM W/MONSERRAT, BILATERAL*on 10-06-2022 SCREENING MAMMOGRAM [...] IS VERY IMPORTANT TO YOUR HEALTH. CURRENT [employer] GUIDELINES RECOMMENDS ANNUAL MAMMOGRAPHY BEGINNING AT AGE 42. THIS FACILITY USUALLY USES A REMINDER SYSTEM TO ENSURE ALL POSITIONS RECEIVED REMINDER NOTIFICATIONS AT THE TIME BASED ON THE RECOMMENDATIONS OF THIS EXAM. Report reported and signed by Hannah Yap on 10/08/2022 1159 Normal [facility] HCG ( test) IA.josei d Ql (U)Ordered By: Kwame Noel on 08-18-2022 HCG ( test) Ql (U) Negative [facility] VC CONSULT FOLLOWUPon 2020 VC CONSULT FOLLOWUP Patient: CESAR DE LA TORRE Exam Date: 09/18/2021 : 1975 Gender:F Ordering : DR BECKY TORRES M.D. Admission #: [id number] Family : Order #: [id number] CLICK HERE TO VIEW EXAM RADIOLOGY REPORT [...] Becky Torres MD on 09/18/2021 at 14:06 [facility] VC EXT VENOUS LT LIMITEDon 1 VC EXT VENOUS LT LIMITED Patient: EB DE LA TORRE Exam Date: 09/18/2021 : 1975 Gender:F Ordering : DR BECKY TORRES M.D. Admission #: [id number] Family : Order #: [id number] CLICK HERE TO VIEW EXAM RADIOLOGY REPORT [...] are observed *Exam performed in accordance with [facility] practice guidelines- Peripheral venous ultrasound, December 15, 2009. 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 Admission #: [id number] Family : Order #: [id number] CLICK HERE TO VIEW EXAM RADIOLOGY REPORT [...] Dick M.D. on 09/10/2021 at 12:18 Normal [facility] VC EXT VENOUS HALEY LIMITEDon 09-10-2021 VC EXT VENOUS HALEY LIMITED Patient: EB DE LA TORRE Exam Date: 09/10/2021 : 1975 Gender:F Ordering : DR BECKY TORRES M.D. Admission #: [id number] Family : Order #: [id number] CLICK HERE TO VIEW EXAM RADIOLOGY REPORT [...] Hannah Dick M.D. on 09/10/2021 at 12:15 [facility] VC INJ FOAM SCLERO W US MLTI on 09-02-2021 VC INJ FOAM SCLERO W US MLTI Patient: EB DE LA TORRE Exam Date: 09/02/2021 : 1975 Gender:F Ordering : DR BECKY TORRES M.D. Admission #: [id number] Family : Order #: [id number] CLICK HERE TO VIEW EXAM RADIOLOGY REPORT PROCEDURE: VEIN CENTER INJECTION FOAM SCLEROSING SOLUTION WITH ULTRASOUND MULTIPLE VEINS - LEFT LEG NO CHARGE FOR THE RIGHT LEG COMPARISON: VC INJ FOAM SCLERO W US MLTI, 08/02/2021. VC INJ FOAM SCLERO W US MLTI, [...] Po (more content not included)... Normal [facility] VC INJ SCL KARLY FURNACE PROCESS SUPERVISOR VEINSon 1 10-20-2020 VC INJ SCL KARLY FURNACE PROCESS SUPERVISOR VEINS Patient: EB DE LA TORRE Exam Date: 08/20/2021 : 1975 Gender:F Ordering : DR BECKY TORRES M.D. Admission #: [id number] Family : Order #: [id number] CLICK HERE TO VIEW EXAM RADIOLOGY REPORT PROCEDURE: VEIN CENTER INJECTION SCLEROSING SOLUTION MULTIPLE VEINS SAME COMPARISON: VC INJ SCL KARLY FURNACE PROCESS SUPERVISOR VEINS, 08/13/2021. INDICATIONS: Pain co-occurrent and due [...] Dick M.D. on 08/20/2021 at 16:11 Normal [facility] VC INJ SCL KARLY FURNACE PROCESS SUPERVISOR VEINSon 1 10-13-2020 VC INJ SCL KARLY FURNACE PROCESS SUPERVISOR VEINS Patient: EB DE LA TORRE Exam Date: 08/13/2021 : 1975 Gender:F Ordering : DR BECKY TORRES M.D. Admission #: [id number] Family : Order #: [id number] CLICK HERE TO VIEW EXAM RADIOLOGY REPORT [...] Dick M.D. on 08/13/2021 at 13:00 Normal [facility] VC CONSULT FOLLOWUPon 2020 VC CONSULT FOLLOWUP Patient: CESAR DE LA TORRE Exam Date: 08/09/2021 : 1975 Gender:F Ordering : DR BECKY TORRES M.D. Admission #: [id number] Family : Order #: [id number] CLICK HERE TO VIEW EXAM RADIOLOGY REPORT [...] Torres MD on 08/09/2021 at 13:10 Normal [facility] VC EXT VENOUS HALEY LIMITEDon 08-09-2021 VC EXT VENOUS HALEY LIMITED Patient: EB DE LA TORRE Exam Date: 08/09/2021 : 1975 Gender:F Ordering : DR BECKY TORRES M.D. Admission #: [id number] Family : Order #: [id number] CLICK HERE TO VIEW EXAM RADIOLOGY REPORT [...] Becky Torres MD on 08/09/2021 at 12:00 Normal [facility] VC INJ FOAM SCLERO W US MLTI on 08-02-2021 VC INJ FOAM SCLERO W US MLTI Patient: EB DE LA TORRE Exam Date: 08/02/2021 : 1975 Gender:F Ordering : DR BECKY TORRES M.D. Admission #: [id number] Family : Order #: [id number] CLICK HERE TO VIEW EXAM RADIOLOGY REPORT [...] Dick M.D. on 08/02/2021 at 15:59 Normal [facility] VC CONSULT FOLLOWUPon 2020 VC CONSULT FOLLOWUP Patient: CESAR DE LA TORRE Exam Date: 07/12/2021 : 1975 Gender:F Ordering : DR HANNAH DICK M.D. Admission #: [id number] Family : Order #: [id number] CLICK HERE TO VIEW EXAM RADIOLOGY REPORT [...] Dick M.D. on 07/12/2021 at 16:05 Normal [facility] VC EXT VENOUS LT LIMITEDon 1 VC EXT VENOUS LT LIMITED Patient: EB DE LA TORRE Exam Date: 07/12/2021 : 1975 Gender:F Ordering : DR HANNAH DICK M.D. Admission #: [id number] Family : DR BECKY TORRES M.D. Order #: [id number] CLICK HERE TO VIEW EXAM RADIOLOGY REPORT [...] of reflux *Exam performed in accordance with [facility] practice guidelines- Peripheral venous ultrasound, December 15, 2009. CONCLUSION: 1. Successful post ablation occlusion of treated branch saphenous varicosities within left leg. Dictated by: Hannah Dick M.D. on 07/12/2021 at 16:01 Approved by: Hannah Dick M.D. on 07/12/2021 at 16:02 Normal [facility] VC INJ FOAM SCLERO W US MLTI on 07-05-2021 VC INJ FOAM SCLERO W US MLTI Patient: EB DE LA TORRE Exam Date: 07/05/2021 : 1975 Gender:F Ordering : DR BECKY TORRES M.D. Admission #: [id number] Family : Order #: [id number] CLICK HERE TO VIEW EXAM RADIOLOGY REPORT [...] Dick M.D. on 07/05/2021 at 16:49 Normal [facility] VC CONSULT FOLLOWUPon 2020 VC CONSULT FOLLOWUP Patient: CESAR DE LA TORRE Exam Date: 06/18/2021 : 1975 Gender:F Ordering : DR BECKY TORRES M.D. Admission #: [id number] Family : Order #: [id number] CLICK HERE [...] Torres MD on 06/18/2021 at 14:47 Normal [facility] VC EXT VENOUS LT LIMITEDon 0 06-18-2021 VC EXT VENOUS LT LIMITED Patient: EB DE LA TORRE Exam Date: 06/18/2021 : 1975 Gender:F Ordering : DR BECKY TORRES M.D. Admission #: [id number] Family : Order #: [id number] CLICK HERE TO VIEW EXAM RADIOLOGY REPORT [...] Torres MD on 06/18/2021 at 14:28 Normal [facility] VC ENDOVENOUS ABL 1ST V LTon 06-03-2021 VC ENDOVENOUS ABL 1ST V LT Patient: EB DE LA TORRE Exam Date: 06/03/2021 : 1975 Gender:F Ordering : DR BECKY TORRES M.D. Admission #: [id number] Family : Order #: [id number] CLICK HERE TO VIEW EXAM RADIOLOGY REPORT PROCEDURE: VEIN CENTER ENDOVENOUS ABLATION FIRST VEIN LEFT COMPARISON: None. 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 Informed written consent was obtained by me and Kade White assisted. Time out procedure was performed. The left [...] the foot pedal and a single delivery/welder gas was created. The total number of Joules [...] Dick M.D. on 06/03/2021 at 11:54 Normal [facility] COMP CONSULTATIONon 05-06 VC COMP CONSULTATION Patient: EB DE LA TORRE Exam Date: 05/06/2021 : 1975 Gender:F Ordering : DR BECKY TORRES M.D. Admission #: [id number] Family : Order #: [id number] CLICK HERE TO VIEW EXAM RADIOLOGY REPORT [...] arterial disease 5. CEAP: C2, EC, , DE PLAN: 1. Continued use of compression stockings [...] M.D. on 05/06/2021 at 09:47 Normal [facility] VC VENOUS REFLUX HALEY LMTon 0 05-06-2021 VC VENOUS REFLUX HALEY LMT Patient: EB DE LA TORRE Exam Date: 05/06/2021 : 1975 Gender:F Ordering : DR BECKY TORRES M.D. Admission #: [id number] Family : Order #: [id number] CLICK HERE TO VIEW EXAM RADIOLOGY REPORT [...] echogenic thrombus seen Compressibility: Normal Flow: Normal Commercial Sales Specialist: None visualized Tech Note: The left SFJ/AASV [...] Hannah Dick M.D. on 05/06/2021 at 09:11 Normal [facility] Coding Summaryon 07-28-2019 Coding Summary CODING DATE: 019 [facility] STATUS: Home PAYOR: Commercial Insurance ADMIT DX: [...] Romina Courtney Date Saved: 07/28/2019 03:17 pm [facility] Provider Orderson 07-27-2019 Provider Orders [id number]#1.00OTGTI [facility] Release of Informationon Release of Information [id number]#1.00OTGTI [facility] T3 Free LCon 07-27-2019 Triiodothyronine,Fr ee,Serum LC 2.4 pg/mL 2.0-4.4 [facility] Comment on above: Result Comment: Perf ormed At: CB [facility] [address] [id number] Yumiko Sheppard PhD Ph:[phone] Performed By: #### 2 [id number], [id number], [id number] ####[facility] (DEFAULT)[address] [place] [address] Free T4on 07-26-2019 Free T4 [Mass/Vol] 0.86 ng/dL Normal 0.61-1.12 [facility] Comment on above: Result Comment: Spec imens that contain high levels of Biotin may cause false high results Performed By: #### 2 [id number], [id number], [id number] ####[facility] (DEFAULT)[address] [place] [address] TSHon 07-26-2019 TSH Qn 2.03 mcIU/mL Normal 0.45-5.33 [facility] Comment on above: Result Comment: Gene ral Population (males and non- females, aged 21-88) 0.45 - 5.33 Females, 1st Trimester 0.05 - 3.70 Females, 2nd Trimester 0.31 - 4.35 Females, 3rd Trimester 0.41 - 5.18 Performed By: #### 2 [id number], [id number], [id number] ####[facility] (DEFAULT)[address] [place] [address] Provider Orderson 01-12-2019 Provider Orders [id number]#1.00OTGTIF F [facility] Provider Orderson 01-06-2019 Provider Orders [id number]#1.00OTGTIF F [facility] Coding Summaryon 01-05-2019 Coding Summary CODING DATE: 019 [facility] STATUS: Home PAYOR: Commercial Insurance APC DESCRIPTION [...] Wendy Palomino Date Saved: 01/05/2019 09:39 am [facility] T3 Free LCon 01-05-2019 Triiodothyronine,Fr ee,Serum LC 3.0 pg/mL 2.0-4.4 [facility] Comment on above: Result Comment: Perf ormed At: CB [facility] [address] [id number] Yumiko Sheppard PhD Ph:[phone] Performed By: #### 4 [id number], [id number] #### [facility] (DEFAULT) [address] [place] [address] Free T4on 01-04-2019 Free T4 [Mass/Vol] 0.83 ng/dL Normal 0.61-1.12 [facility] Comment on above: Result Comment: Spec imens that contain high levels of Biotin may cause false high results Performed By: #### 4 125757, [id number] #### [facility] (DEFAULT) [address] [place] [address] TSHon 01-04-2019 TSH Qn 2.15 mcIU/mL Normal 0.45-5.33 [facility] Comment on above: Result Comment: Gene [facility] Population (males and non- females, aged 21-88) 0.45 - 5.33 Females, 1st Trimester 0.05 - 3.70 Females, 2nd Trimester 0.31 - 4.35 Females, 3rd Trimester 0.41 - 5.18 Performed By: #### 4 [id number], [id number] #### [facility] (DEFAULT) [address] [place] [address] US Thyroidon 01-04-2019 US Thyroid EXAM: US [...] MD 01/04/19 3:38 pm Technologist: Jalyn ELY [facility] Vit D25 OHon 01-04-2019 Vitamin D 25 [place] 26 ng/mL [facility] Comment on above: Result Comment: In [...] J Clin Endocrinol Metab 2011; 96 (7): 7914-5612. Performed By: #### 4 [id number], [id number] #### [facility] (DEFAULT) [address] [place] [address] Coding Summaryon 12-09-2018 Coding Summary CODING DATE: 019 [facility] STATUS: Home PAYOR: Commercial Insurance ADMIT DX: [...] Wendy Palomino Date Saved: 12/09/2018 01:01 pm [facility] Provider Orderson 12-08-2018 Provider Orders [id number]#1.00OTGTIF F [facility] T3 Free LCon 12-08-2018 Triiodothyronine,Fr ee,Serum LC 2.5 pg/mL 2.0-4.4 [facility] Comment on above: Result Comment: Perf ormed At: [facility] [address] [id number] Yumiko Sheppard PhD Ph:[phone] Performed By: #### 2 [id number], [id number], [id number] #### [facility] (DEFAULT) [address] [place] [address] Free T4on 12-07-2018 Free T4 [Mass/Vol] 0.84 ng/dL Normal 0.61-1.12 [facility] Comment on above: Result Comment: Spec imens that contain high levels of Biotin may cause false high results Performed By: #### 2 [id number], [id number], [id number] #### [facility] (DEFAULT) [address] [place] [address] TSHon 12-07-2018 TSH Qn 2.68 mcIU/mL Normal 0.45-5.33 [facility] Comment on above: Result Comment: Gene ral Population (males and non- females, aged 21-88) 0.45 - 5.33 Females, 1st Trimester 0.05 - 3.70 Females, 2nd Trimester 0.31 - 4.35 Females, 3rd Trimester 0.41 - 5.18 Performed By: #### 2 775015, 1764149, [id number] #### [facility] (DEFAULT) [address] [place] [address] Coding Summaryon 08-13-2018 Coding Summary CODING DATE: 018 FINAL [facility] STATUS: Home PAYOR: Commercial Insurance ADMIT [...] Palomino Date Saved: 08/13/2018 08:53 am Normal [facility] C Throaton 08-09-2018 C Throat Ordered by Discern. Normal throat gene isolated No pathogens isolated [facility] Comment on above: Performed By: #### 4 [id number], [id number] #### [facility] (DEFAULT) [address] [place] [address] ED Clinical Summaryon 2017 ED Clinical Summary [facility] ? Urgent Care [address] [place] [address] Clinical Summary PERSON INFORMATION Name: ANDREW JJEB MURPHY Age: 43 Years Sex: FEMALE : [birth year] MRN: Acct#: Visit Reason: UC - Sore Throat; C/O WHITE SPOT IN THROAT Arrival: 08/07/18 14:50:00 Discharge: 08/07/18 15:27:00 LOS: 000 00:37 Check In: 08/07/18 14:50:00 Checkout: 08/07/18 15:27:00 Address: [address] [place] [address] PCP: Provider, None PROVIDER INFORMATION Provider Role Assigned Unassigned Juan Miguel Heard ED DARLIN 08/07/18 14:55:17 Spike Branch RN ED Nurse 08/07/18 15:12:40 VITALS INFORMATION Vital [...] Patient/family/caregiver verbalizes understanding of instructions given Comment: [facility] ED Note - Physicianon 2017 ED Note [...] treatment plan. Impression and Plan Diagnosis Tonsillolith ([id number]-VE J35.8, Discharge, Medical) Plan Patient was given [...] on: 08/07/2018 17:00 EST] Juan Miguel Heard [facility] ED Patient Summaryon 018 ED Patient Summary [facility] ? Urgent Care [address] [place] [address] PATIENT DISCHARGE INSTRUCTIONS Patient Information Name: EB [...] 10/15/2005 Document Revised: 05/13/2017 Document Reviewed: 12/14/2014 [employer]OOK [employer] Interactive Patient Education ? 2017 olook. Medication Information: The exam and treatment you received today in the [facility] Emergency Department were for an urgent problem and are not intended as complete care. It is important for you to follow up with a doctor, nurse practitioner, or physician?s life science research assistant for ongoing care. If your symptoms [...] so we can reach you if necessary. [facility] Emergency Department has provided you with a complete list of medications post discharge. Please inform your bombsight specialist/provider of your visit and for further instruction on these medications. Any specific questions regarding your chronic medications and dosages should be discussed with your primary care physician(s) and/or pharmacist. New Medications Other Medications thyroid desiccated (Coolin Thyroid 60 mg oral tablet) 1 tab(s) Oral every day. Visit Information Visit Diagnosis: Diagnoses This Visit Tonsillolith (J35.8) UC - Sore Throat ([id number]) If you received any narcotics, sedation, or [...] Stop date 08/07/18 15:02:00 EST, Nurse collect, [id number] Radiology Cardiology Viruses or Bacteria What?s got [...] Disease Control and Prevention May 2014 Normal [facility] Strep Aon 08-07-2018 Strep A Negative Normal Negative [facility] Comment on above: Performed By: #### 4 [id number], [id number] #### [facility] (DEFAULT) [address] [place] [address] Strep procedure control Pass Normal [facility] Comment on above: Performed By: #### 4 [id number], [id number] #### [facility] (DEFAULT) [address] [place] [address] Urgent Care [place] 018 Urgent Care Record [facility] ? Urgent Care [address] [place], [place] [id number] PATIENT DISCHARGE INSTRUCTIONS Patient Information Name: EB WILCOX Age: 43 Years Date of : [birth year] Reason For Visit: UC - Sore Throat; C/O WHITE SPOT IN THROAT Arrival Time: 08/07/18 14:50:00 Primary Care Physician: Provider, None Attending Physician: Juan Miguel Heard Comment: Visit Diagnosis: Diagnoses This Visit Tonsillolith (J35.8) UC - Sore Throat ([id number]) If you received any narcotics, sedation, or [...] and treatment you received today in the [facility] Urgent Care were for an urgent problem and are not intended as complete care. It is important for you to follow up with a doctor, nurse practitioner, or physician?s life science research assistant for ongoing care. If your symptoms [...] so we can reach you if necessary. [facility] Urgent Care has provided you with a complete list of medications post discharge. Please inform your bombsight specialist/provider of your visit and for further instruction on these medications. Any specific questions regarding your chronic medications and dosages should be discussed with your primary care physician(s) and/or pharmacist. New Medications Other Medications thyroid desiccated (Coolin Thyroid 60 mg oral tablet) 1 tab(s) [...] 10/15/2005 Document Revised: 05/13/2017 Document Reviewed: 12/14/2014 BOOK A T[employer]ER Interactive Patient Education ? 2017 [employer] Viruses or Bacteria What?s got you [...] for Disease Control and Prevention May 2014 [facility] CNCOon 04-15-2017 CNCO Letter TextToll Free : [phone] [facility] - [address] [place], [place] [address]Jmrax: [phone]: [facility] [address]wh[address] [facility] [place], [place] [address]Gmyco: [phone]: [facility] - [address] [place], [place] [address]Qlryh: [phone]: Cornelius Palomino M.D., Roni Cardenas M.D.Abdulaziz Mendoza M.D.Slava Carrillo D.O..Gustavo Gottlieb M.D.Ying Da Silva M.D..04/15/2017Joealecia [facility] [id number] [facility] [address]Zh Bhavik GonzalezFILLMORE COMM[facility] OB/GYNDear Eb Boone's lupus anticoagulant panel was negative. She has no evidence of theantiphospholipid antibody syndrome/lupus anticoagulant. I have given thepatient reassurance with the lab results. Thanks Dr Gonzalez, and kindestregards,Sincerely, Maeve Cardenas MD(signed electronically to expedite mailing) [facility] APTTon 04-13-2017 aPTT 29.7 s Normal 23.0-32.4 [facility] Comment on above: Result Comment: The APTT [...] reagent. Performed By: #### P T, PTT ####[address] [place], [place] [phone] + CBCon 04-13-20 17 Absol Gran Count 4.44 k/uL Normal 1.45-7.50 [facility] Comment on above: Performed By: #### P T, PTT ####[address] [phone] Erythrocyte distribution width Auto Ratio (RBC) 12.5 % Normal 11.5-15.0 [facility] Comment on above: Performed By: #### P T, PTT ####[address] [phone] Erythrocytes (RBC) 4.05 10*6/uL Normal 3.90-5.20 [facility] Comment on above: Performed By: #### P T, PTT ####[address] [phone] Hematocrit (HCT) 38.2 % Normal 36.0-46.0 [facility] Comment on above: Performed By: #### P T, PTT ####[address] [phone] Hemoglobin mass conc (Bld) 13.2 g/dL Normal 11.5-15.5 [facility] Comment on above: Performed By: #### P T, PTT ####[address] [phone] MCH 32.6 pG Normal 26.0-34.0 [facility] Comment on above: Performed By: #### P T, PTT ####[address] [phone] MCHC mass conc (RBC) 34.6 g/dL Normal 30.5-36.0 [facility] Comment on above: Performed By: #### P T, PTT ####[place] [id number] [place], [place] [phone] MCV 94.3 fL Normal 80.0-100.0 [facility] Comment on above: Performed By: #### P T, PTT ####[address] [phone] Platelet mean volume (PMV) 10.0 fL Normal 9.0-12.7 [facility] Comment on above: Performed By: #### P T, PTT ####[address] [phone] Platelets 252 10*3/uL Normal 150-400 [facility] Comment on above: Performed By: #### P T, PTT ####[address] [phone] WBC (Leukocytes) 6.97 10*3/uL Normal 3.70-11.00 [facility] Comment on above: Performed By: #### P T, PTT ####[address] [phone] CNOVSPon 04-13-2017 CNOVS Visit (SP) Office ([place]) EB DE LA TORRE ([id number]) 1975 FDate Time Provider Department04/13/17 4:00 PM MAEVE CARDENAS During your visit today, we recorded the following information about you: Temperature Pulse Respiration Blood pressure 97.2 degrees 68/minute 18/minute 123/81 Weight Height 76.6 kg 1.683 London Cardenas MD 04/13/2017 4:34 PM SignedCarlota De La Torre is a 41 year [...] laboratory test PTTPAST SURGICAL HISTORYNo date: BREAST OCVCSQ2912/09/2016: DANDamp;C, DIAG AND/OR THERAPEUTIC Comment: Dilation ANDamp; [...] 14.4 oz) LMP (LMP Unknown) BMI 27.06 kg/l3Thhtopr Appearance: alert and oriented, appearing in no [...] PROTHROMBIN TIME/PT- ACTIVATED PTT- LUPUS ANTICOAG Konstantin Cardenas, MDReferring Provider: BHAVIK GONZALEZ [[id number]]Allergies As of Date: 04/13/2017(No Known Allergies)Date Reviewed: 04/13/2017Reviewed by: Bren Berry - Fully AssessedPrimary Visit Diagnosis:Less than 8 weeks gestation of [Z3A.01]Order(s):ABS GRAN CT + CBC [SQAGCCBC] Order #: [id number] FUTURE PROTHROMBIN TIME/PT [SQPT] Order #: [id number] FUTURE ACTIVATED PTT [SQPTT] Order #: [id number] FUTURE LUPUS ANTICOAG PL [SQLUPUSP] Order #: [id number] FUTUREPrescriptions as of 04/13/2017 Sig: + DHA ORAL Take by mouth. PROGESTERONE MISC ARMOUR THYROID 60 MG TABLET Take 60 mg by mouth once aliyah*Problem List As Of Date 04/13/2017 Noted Resolved Less than 8 weeks gestation of [Z3A.0*INVALID FOR*Encounter Status:Closed by MAEVE CARDENAS MD on 04/13/17 Normal [facility] Lupus Anticoag Panelon 04-13 aPTT 29.2 s Normal <33.5 [facility] Comment on above: Performed By: #### L UPUSP ####[place] [id number] [place], [place] [phone] aPTT 29.9 s Normal <37.3 [facility] Comment on above: Performed By: #### L UPUSP ####[address] [phone] aPTT 33.1 s Normal 24.4-33.4 [facility] Comment on above: Performed By: #### L UPUSP ####[address] [phone] aPTT 28.6 s Normal 23.0-32.4 [facility] Comment on above: Result Comment: The APTT [...] APTT reagent. Performed By: #### L UPUSP ####[address] [phone] Beta2 Glycoprot IgG <9 Normal <20 [facility] Comment on above: Result Comment: < 20 SGU Jllzahsh25-18 SGU Low Positive> 80 SGU High PositiveThese results were obtained with the [employer] QUANTA Lite B2 GPI IgG MATTIE. B2 GPI IgG values obtained with different manufacturers' assay methods may not be used interchangeably. The magnitude of the reported IgG levels cannot be correlated to an endpoint titer. Performed By: #### L UPUSP ####[address] [phone] Beta2 Glycoprot IgM <9 Normal <20 [facility] Comment on above: Result Comment: < 20 SMU Cqruxqjg51-13 SMU Low Positive> 80 SMU High PositiveThese results were obtained with the [employer] QUANTA Lite B2 GPI IgM MATTIE. B2 GPI IgM values obtained with different manufacturers' assay methods may not be used interchangeably. The magnitude of the reported IgM levels cannot be correlated to an endpoint titer. Performed By: #### L UPUSP ####[place] [phone] DRVVT 1:1 Mix 37.4 sec Normal 32.7-46.7 [facility] Comment on above: Performed By: #### L UPUSP ####[address] [phone] DRVVT Confirm Ratio 1.07 Normal <1.21 [facility] Comment on above: Performed By: #### L UPUSP ####[address] [phone] DRVVT Screen 35.0 sec Normal 32.7-46.7 [facility] Comment on above: Performed By: #### L UPUSP ####[address] [phone] Hex Phase Confirm 54.4 sec Normal 45.1-64.1 [facility] Comment on above: Performed By: #### L UPUSP ####[facility] [place], [place] [phone] Hex Phase Delta 0.1 delta sec Normal <9.0 [facility] Comment on above: Performed By: #### L UPUSP ####[address] [phone] Hex Phase Screen 54.5 sec Normal 48.9-70.2 [facility] Comment on above: Performed By: #### L UPUSP ####[address] [phone] IgA Cardiolipin Ab. <9 Normal 0-11 [facility] Comment on above: Result Comment: <12 APL Thtjvnus78-91 APL Equivocal>40 APL PositiveThe following results were obtained with an [employer] QUANTA Lite NIKI IgA III MATTIE. Cardiolipin IgA values obtained with different manufacturers' assay methods may not be used interchangeably. The magnitude of the reported IgA levels cannot be correclated to an endpoint titer. Performed By: #### L UPUSP ####[address] [phone] IgG Cardiolipin Ab. <9 Normal 0-9 [facility] Comment on above: Result Comment: <10 GPL Jzjsriek24-04 GPL Equivocal>40 GPL PositiveThe following results were obtained with the [employer] QUANTA Lite NIKI IgG III MATTIE. Cardiolipin IgG values obtained with the different manufacturers' assay methods may not be used interchangeably. The magnitude of the reported IgG levels cannot be correlated to an endpoint titer. Performed By: #### L UPUSP ####[address] [phone] IgM Cardiolipin Ab. <9 Normal 0-11 [facility] Comment on above: Result Comment: <12 MPL Iebjiaqp56-73 MPL Equivocal>40 MPL PositiveThe following results were obtained with the [employer] QUANTA Lite NIKI IgM III MATTIE. Cardiolipin IgM values obtained with different manufacturers' assay methods may not be used interchangeably. The magnitude of the reported IgM levels cannot be correlated to an endpoint titer. Performed By: #### L UPUSP ####[place] [id number] [place], [place] [phone] Interpretation (NOTE) Normal [facility] Comment on above: Result Comment: Perf orming Pathologist: La Martinez M.D., Ph.D.Interpretation:Normal - see [...] 74:1185 (1995). Performed By: #### L UPUSP ####[facility] [place], [place] [phone] PNP Negative Normal Negative [facility] Comment on above: Performed By: #### L UPUSP ####[facility] [place], [place] [phone] PT Sec 10.7 sec Normal 8.4-13.0 [facility] Comment on above: Performed By: #### L UPUSP ####[facility] [address] [place], [place] [phone] Thrombin Time 15.5 sec Normal <18.6 [facility] Comment on above: Performed By: #### L UPUSP ####[facility] [address] [place] [address] [place], [place] [phone] PROGRESSon 04-13-2017 PROGRESS HNO ID: [id number] thor: Maeve Olsen: (none)Author Type: PhysicianType: Progress [...] laboratory test PTTPAST SURGICAL HISTORYNo date: BREAST HRNPIN1712/09/2016: DANDC, DIAG AND/OR THERAPEUTIC Comment: Dilation AND curettageSocial HistorySubstance [...] lb 14.4 oz) LMP (LMPUnknown) BMI 27.06 kg/b7Suoaovz Appearance: alert and oriented, appearing in no [...] PTT- LUPUS ANTICOAG Konstantin Cardenas MD Normal [facility] Protimeon 04-13-2017 INR Coag RelTime (Bld) 1.0 {INR} Normal 0.8-1.2 [facility] Comment on above: Result Comment: The PT/INR [...] to 3.5 for older generation mechanical heart valves.Kj, et al. CHEST 2004: 126:204S to 233S. Performed By: #### P T, PTT ####[facility] [address] [place], [place] [phone] Performed By: #### L UPUSP ####[facility] [address] [place], [place] [phone] PT Sec 10.9 sec Normal 8.4-13.0 [facility] Comment on above: Performed By: #### P T, PTT ####[facility] [address] [place], [place] [phone] Vital Signs Date Time Vital Sign Value Performing Clinician Facility 08-31-2023 12:17-0500 Diastolic blood pressure 60 mm[Hg] MD Mic Bowen Work Phone: [facility] 08-31-2023 12:17-0500 Heart rate 60 /min MD Mic Bowen Work Phone: [facility] 08-31-2023 12:17-0500 Respiratory rate 14 /min MD Mic Bowen Work Phone: [facility] 08-31-2023 12:17-0500 SaO2% (BldA) [Mass fraction] 99 % MD Mic Bowen Work Phone: [facility] 08-31-2023 12:17-0500 Systolic blood pressure 95 mm[Hg] MD Mic Bowen Work Phone: [facility] 08-31-2023 10:20-0500 Body height 165.1 cm MD Mic Bowen Work Phone: [facility] 08-31-2023 10:20-0500 Body weight 73.93 kg MD Mic Bowen Work Phone: [facility] 07-21-2023 13:00-0400 Body height 165.1 cm Imad Asaad Other [employer] Other 07-21-2023 13:00-0400 Body mass index (BMI) [Ratio] 26.62 kg/m2 Imad Asaad Other [employer] Other 07-21-2023 13:00-0400 Body weight 72.58 kg Imad Asaad Other [employer] Other 07-21-2023 13:00-0400 Diastolic blood pressure 79 mm[Hg] Imad Asaad Other [employer] Other 07-21-2023 13:00-0400 Systolic blood pressure 124 mm[Hg] Imad Asaad Other [employer] Other 05-13-2023 16:00-0400 Body height 165.1 cm Cooper Hardwick Other [employer] Other 05-13-2023 16:00-0400 Body mass index (BMI) [Ratio] 26.29 kg/m2 Cooper Hardwick Other [employer] Other 05-13-2023 16:00-0400 Body weight 71.67 kg Cooper Hardwick Other [employer] Other 05-13-2023 16:00-0400 Diastolic blood pressure 75 mm[Hg] Cooper Hardwick Other [employer] Other 05-13-2023 16:00-0400 Respiratory rate 18 /min Cooper Hardwick Other [employer] Other 05-13-2023 16:00-0400 SaO2% (BldA) [Mass fraction] 98 % Cooper Hardwick Other [employer] Other 05-13-2023 16:00-0400 Systolic blood pressure 117 mm[Hg] Cooper Hardwick Other [employer] Other 12-30-2022 15:15-0400 Body height 165.1 cm Cooper Hardwick Other [employer] Other 12-30-2022 15:15-0400 Body temperature 98.2 [degF] Cooper Hardwick Other [employer] Other 12-30-2022 15:15-0400 Diastolic blood pressure 82 mm[Hg] Cooper Hardwick Other [employer] Other 12-30-2022 15:15-0400 Respiratory rate 20 /min Cooper aHrdwick Other [employer] Other 12-30-2022 15:15-0400 SaO2% (BldA) [Mass fraction] 100 % Cooper Hoyosskyla Other [employer] Other 12-30-2022 15:15-0400 Systolic blood pressure 127 mm[Hg] Cooper Hoyosskyla Other [employer] Other 08-18-2022 09:05-0500 Diastolic blood pressure 59 mm[Hg] MD Mic Bowen Work Phone: [facility] 08-18-2022 09:05-0500 Heart rate 53 /min MD Mic Bowen Work Phone: [facility] 08-18-2022 09:05-0500 Respiratory rate 16 /min MD Mic Bowen Work Phone: [facility] 08-18-2022 09:05-0500 SaO2% (BldA) [Mass fraction] 99 % MD Mic Bowen Work Phone: [facility] 08-18-2022 09:05-0500 Systolic blood pressure 97 mm[Hg] MD Mic Bowen Work Phone: [facility] 08-18-2022 07:34-0500 Body height 165.1 cm MD Mic Bowen Work Phone: [facility] 08-18-2022 07:34-0500 Body temperature 98.3 [degF] MD Mic Bowen Work Phone: [facility] 08-18-2022 07:34-0500 Body weight 72.12 kg MD Mic Bowen Work Phone: [facility] 05-12-2022 16:15-0400 Body height 165.1 cm Cooperjohn Hardwick Other [employer] Other 05-12-2022 16:15-0400 Body mass index (BMI) [Ratio] 26.62 kg/m2 Cooper Hardwick Other [employer] Other 05-12-2022 16:15-0400 Body weight 72.58 kg Cooper Hardwick Other [employer] Other 05-12-2022 16:15-0400 Diastolic blood pressure 70 mm[Hg] Cooper Hardwick Other [employer] Other 05-12-2022 16:15-0400 Respiratory rate 18 /min Cooper Hardwick Other [employer] Other 05-12-2022 16:15-0400 SaO2% (BldA) [Mass fraction] 98 % Cooper Hardwick Other [employer] Other 05-12-2022 16:15-0400 Systolic blood pressure 110 mm[Hg] Cooper Hardwick Other [employer] Other Encounters Encounter Date Encounter Type Care Provider Facility Start: 10-26-2023 Chart abstracting Vitaly ramírez DO Work Phone: [facility] Start: 10-26-2023 End: 10-26-2023 ambulatory Imad Asaad Facility:[facility] Start: 10-26-2023 End: 10-26-2023 ambulatory MD Mic Bowen Work Phone: [facility] Work Phone: Start: 10-26-2023 End: 10-26-2023 Patient encounter procedure MD Mic Bowen Work Phone: [facility] Work Phone: Start: 09-07-2023 End: 09-07-2023 ambulatory Imad Asaad Other [employer] Other Start: 09-07-2023 Telephone encounter Imad Asaad [facility] Start: 08-31-2023 End: 08-31-2023 ambulatory Imad Asaad Facility:[facility] Start: 08-31-2023 End: 08-31-2023 Admission to same day surgery center MD Mic Bowen Work Phone: [facility] Work Phone: Start: 08-31-2023 End: 08-31-2023 ambulatory MD Mic Bowen Work Phone: [facility] Work Phone: Start: 08-24-2023 End: 08-24-2023 ambulatory MIC BOWEN Not Available Start: 08-10-2023 End: 08-10-2023 ambulatory Imad Asaad Facility:[facility] Start: 08-10-2023 End: 08-10-2023 ambulatory MD Mic Bowen Work Phone: [facility] Work Phone: Start: 08-10-2023 End: 08-10-2023 Patient encounter procedure MD Mic Bowen Work Phone: [facility] Work Phone: Start: 08-06-2023 End: 08-07-2023 ambulatory MIC BOWEN Facility:[facility] Start: 07-22-2023 End: 07-22-2023 ambulatory Imad Asaad Other [employer] Other Start: 07-22-2023 Telephone encounter Imad Asaad [facility] Start: 07-21-2023 End: 07-21-2023 ambulatory Imad Asaad Other [employer] Other Start: 07-21-2023 Office outpatient ne w 45 minutes Imad Hectorsanthosh [facility] Start: 05-13-2023 End: 05-13-2023 ambulatory Cooper Hardwick Other [employer] Other Start: 05-13-2023 Patient encounter procedure Cooper Ronen [facility] Start: 05-13-2023 Periodic preventive med est patient 40-64yrs Cooper Ronen [facility] Start: 05-05-2023 End: 05-06-2023 ambulatory MIC BOWEN [facility] Start: 04-14-2023 End: 04-15-2023 ambulatory MIC BOWEN [facility] Start: 01-12-2023 End: 01-13-2023 ambulatory MIC BOWEN [facility] Start: 12-30-2022 End: 12-30-2022 ambulatory Cooper Hardwick Other [employer] Other Start: 12-30-2022 Office outpatient visit 15 minutes Cooper Ronen [facility] Start: 08-18-2022 Telephone encounter Kwame ORDAZ [facility] Start: 08-18-2022 End: 08-18-2022 Admission to same day surgery center MD Mic Bowen Work Phone: [facility] Start: 08-18-2022 End: 08-18-2022 ambulatory MD Mic Bowen Work Phone: [facility] Work Phone: Start: 05-12-2022 End: 05-12-2022 ambulatory Cooper Ronen Other [employer] Other Start: 05-12-2022 Patient encounter procedure Cooper Ronen [facility] Start: 05-12-2022 Periodic preventive med est patient 40-64yrs Cooper Hardwick [facility] Start: 12-02-2021 End: 03-13-[address] BECKY [...] Start: 04-13-2017 End: 04-14-2017 Ambulatory MAEVE CARDENAS [facility] Procedures Date Procedure Procedure Detail Performing Clinician Start: 10-26-2023 Radionuclide gastric emptying study MD Sam Bowen Work Phone: Start: 08-31-2023 Esophagogastroduodenoscopy MD Mic sanchez Work Phone: Start: 08-10-2023 Ultrasonography of abdomen MD Mic sanchez Work Phone: Start: 10-06-2022 Mammography Vitaly De Jesus DO Work Phone: Start: 08-18-2022 Colonoscopy MD Mic Bowen Work Phone: Plan of Treatment Date Care Activity Detail Author Start: 02-16-2024 End: 02-16-2024 Patient encounter procedure 02/16/2024 11:30 AM EDT Office Visit [facility] [address] [facility] [place] [address] Mic Bowen MD [address] [place] [address] [facility] Start: 11-02-2023 End: 11-02-2023 Patient encounter procedure 11/02/2023 2:15 PM EST Office Visit [facility] [address] [facility] [address] [place] [phone] Vitaly De Jesus, DO [address] [facility] [address] [place] [address] [facility] Start: 11-02-2023 End: 11-02-2023 Professional / ancillary services management 11/02/2023 1:30 PM EST Ancillary Procedure [facility] [address] [place] [id number] [facility] Start: 10-06-2023 Screening for malign ant neoplasm of breast Mammogram [facility] Start: 08-31-2023 [facility] Start: 05-22-2023 Influenza vaccination Influenz a Vaccine (#1) [facility] Start: 08-18-2022 [facility] Start: 2007 Screening for malign ant neoplasm of cervix [facility] Start: 1998 Screening for malign ant neoplasm of cervix Pap Smear [facility] Start: 1977 Screening for malign ant neoplasm of colon [facility] Patient Education [facility] Work Phone: Immunizations Immunization Date Immunization Notes Care Provider Fa cility 01-07-2021 Moderna SARS-CoV-2 Vaccination Vitaly De Jesus DO Work Phone: [facility] 12-10-2020 Moderna SARS-CoV-2 Vaccination Vitaly De Jesus DO Work Phone: [facility] 09-17-2017 tetanus toxoid, redu paris diphtheria toxoid, and acellular pertussis vaccine, adsorbed Vitaly De Jesus DO Work Phone: [facility] 06-29-2017 seasonal influenza, intradermal, preservative free Vitaly Bradshawi DO Work Phone: [facility] 06-29-2017 influenza virus vacc ine, unspecified formulation Vitaly Bradshawi DO Work Phone: [facility] Payers Date Payer Category Payer Self-pay [id number] 2023 Unknown FRONTPATH FRONTP ATH [id number] 2023-Present [address] [place] [address] [id number] 1977 Unknown [id number] 2.16.840.1.040562.3.579.2.593 1977 Unknown [id number] 2.16.840.1.451189.3.579.2.593 1977 Unknown [id number] 2.16.840.1.601128.3.579.2.593 1977 Unknown [id number] 2.16.840.1.612893.3.579.2.593 1977 Unknown [id number] 2.16.840.1.949390.3.579.2.593 1977 Unknown [id number] 2.16.840.1.607106.3.579.2.593 1977 Unknown [id number] 2.16.840.1.463774.3.579.2.593 1977 Unknown [id number] 2.16.840.1.453379.3.579.2.593 1977 Unknown [id number] 2.16.840.1.945006.3.579.2.593 1977 Unknown [id number] 2.16.840.1.540006.3.579.2.593 1977 Unknown [id number] 2.16.840.1.272480.3.579.2.593 1977 Unknown [id number] 2.16.840.1.399249.3.579.2.593 1977 Unknown [id number] 2.16.840.1.226361.3.579.2.593 1977 Unknown [id number] 2.16.840.1.721140.3.579.2.593 1977 Unknown [id number] 2.16.840.1.907054.3.579.2.718 1977 Unknown [id number] 2.16.840.1.509797.3.579.2.718 1977 Unknown [id number] 2.16.840.1.178567.3.579.2.718 1977 Unknown [id number] 2.16.840.1.827841.3.579.2.718 1977 Unknown [id number] 2.16.840.1.892265.3.579.2.125 9 1959 Self-pay [id number] 1959 Unknown [id number] Unknown [id number] 2.16.840.1.675174.3.579.2.531 Unknown [id number] 2.16.840.1.740365.3.579.2.531 Unknown [id number] 2.16.840.1.219189.3.579.2.531 Social History Date Type Detail Facility Unknown if ever smoked [employer] Other Start: 03-26-2023 End: 08-24-2023 Sex Assigned At [facility] Start: 08-18-2022 End: 03-26-2023 Tobacco smoking status NHIS Never smoked tobacco (finding) [facility] Start: 1975 Sex Assigned At Female [facility] Start: 03-26-2023 Tobacco use and exposure Smokeless tobacco non-user [facility] Start: 10-26-2023 Alcohol intake Lifetime non-drinker (finding) [facility] Start: 03-26-2023 End: 08-24-2023 History of Social function [facility] Within the last year , have you been afraid of your partner or ex-partner? No [facility] How often do you att end lutheran or hinduism services? Patient refused [facility] Do you belong to any clubs or organizations such as lutheran groups, unions, fraternal or athletic groups, or school groups? Yes [facility] Are you now , , , , never or living with a partner? [facility] How often to you hav e a drink containing alcohol? Never [facility] Do you feel stress - tense, restless, nervous, or anxious, or unable to sleep at night because your mind is troubled all the time - these days [OSQ] To some extent [facility] (I/We) worried wheth er (my/our) food would run out before (I/we) got money to buy more. Never true [facility] Start: 03-18-2023 Alcohol Comment Caffeine intake : 1-2 cups per day [facility] Start: 1975 Sex Assigned At Not on file [facility] Start: 12-03-2022 Gender identity Identifies as female gender (finding) [facility] Goals Date Patient Goal Desired Activity /State Clinical Notes 05-12-2022 to 08-31-2023 Note Date & Type Note Facility 08-31-2023 Procedure note [facility] 07-21-2023 Evaluation note Encounter Date Diagnosis Assessment Notes Jun, Functional constipation (ICD-10 - K59.04) Jun, Bloating (ICD-10 - R14.0) Jun, Epigastric abdominal pain (ICD-10 - R10.13) [employer] Other 10-31-2023 History general Narrative - Reported* Type Description Date Medical History Tendonitis Medical History Thyroid conversion issue Medical History tonsil stones Medical History varicose veins Medical History CIC IBS Surgical History varicose vein stripping 023 [employer] Other 08-23-2023 Evaluation note* Encounter Date Diagnosis Assessment Notes Treatment Notes Treatment Clinical Notes Apr, Annual physical exam (ICD-10 - Z00.00) Overall, patient doing well. Continue current care. Up to date on WWE and mammogram (through her ed manager, Dr. Pringle). She recently had comprehensive labs done through her specialist, including thyroid levels and Vit D, and agrees to drop them off for my review. Apr, Acquired hypothyroidism (ICD-10 - E03.9) Patient is following with a specialist for management. She will have labs done through her specialist. Her dose was recently reduced -- questionable whether or not her Coolin has anything to do with her constipation [...] agree that is reasonable at this time. [employer] Other 04-11-2023 Evaluation note* Encounter Date Diagnosis Assessment Notes Treatment Notes Treatment Clinical Notes Dec, Acute bacterial conjunctivitis of right eye (ICD-10 - H10.31) Will treat as detailed. We did discuss s/s of ocular emergencies -- immedeiately to the nearest ER for any of those s/s. Call with questions/concerns . [employer] Other [facility]* Encounter Date Diagnosis Assessment Notes Treatment Notes Treatment Clinical Notes 22 Aug, 2022 Annual physical exam (ICD-10 - Z00.00) Overall, patient doing well. Continue current care. Up to date on WWE and mammogram (through her ed manager, Dr. Pringle). She plans to have comprehensive labs done through her specialist, including thyroid levels and Vit D. Apr, Acquired hypothyroidism (ICD-10 - E03.9) Patient is following with a specialist for management. She will have labs done through her specialist. [employer] Other Evaluation noteNo assessment information available [facility] Work Phone: Evaluation noteNo Information[facility] Other History and physical note Author Kwame Noel [facility] August 18, 2022 8:07am Note Date/Time August 18, 2022 8:07am [facility] [address] [place] [address] Gastroenterology H&P Signed Patient: Eb De La Torre MR#: [id number] : 1975 Acct:[id number] Age/Sex: 47 / F Adm Date: 2 Loc: Room: Type: [facility] Attending Dr: Kwame Noel MD Copies [...] Noel MD Documented By: Kwame Noel MD 08/18/22 0805 Signed By: <Electronically signed by Kwame Noel MD> 08/18/2207 [facility] Work Phone: History and physical note Author Debi Mares [facility] August 31, 2023 11:27am Note Date/Time August 31, 2023 11:28am [facility] [address] [place] [address] Gastroenterology H&P Signed Patient: Eb De La Torre MR#: [id number] : 1975 Acct:[id number] Age/Sex: 48 / F Adm Date: 3 Loc: Room: Type: [facility] Attending Dr: Debi Mares MD Copies [...] <Electronically signed by Debi Mares MD> 08/31/231126 [facility] Work Phone: History general Narrative - Reported* Type Description Date Medical History Tendonitis Medical History Thyroid conversion issue Medical History tonsil stones [employer] Other Hospital Discharge instructions Additional Instructions DISCHARGE [...] Follow up with PCP. - Office number [phone].[facility] Work Phone: Hospital Discharge instructions Additional [...] if you have any problems. -Office number [phone]. [facility] Work Phone: Summary Purpose Family [...] R14.0 Chief Complaint R14.0 epigastric pain, bloating Chief Complaint R14.0 epigastric pain, bloating r14.0 r10.13 Reason for Referral Reason Requesting Dr. Mares if possible (patient saw Dr. Noel for colonoscopy and was not pleased) LLQ pain, intermittent mucous in stools, frequent constipation Diagnosis 1 Slow transit constip ation (K59.01) Referral Organization [facility] Family Medicin e [facility] Referring Provider First Name Cooper Referring Provider Last Name Ronen Referring Provider Specialty Family Prac jillian Referred Organization [facility] Gastroenterolo gy Referred Provider Debi Mares Referred Address [address] [facility],[place] [address] ,[place], [place],[address] Referred Provider Specialty Gastroentero logy Referral Priority Routine General Notes Beatriz Cid 04:04:06 PM >recieved today, faxed P2P Additional Source Comments INFORMATION SOURCE (unrecogn ized section and content) DATE CREATED AUTHOR 03/17/2018 [facility] DATE CREATED AUTHOR AUTHOR'S ORGANIZ ATION 07/28/2019 [facility] DATE CREATED AUTHOR AUTHOR'S ORGANIZ ATION 03/13/2022 [facility] DATE CREATED AUTHOR AUTHOR'S ORGANIZ ATION 01/27/2023 [facility] DATE CREATED AUTHOR AUTHOR'S ORGANIZ ATION 08/14/2023 [facility] DATE CREATED AUTHOR AUTHOR'S ORGANIZ ATION 08/25/2023 [facility] EPIC DATE CREATED AUTHOR AUTHOR'S ORGANIZ ATION 10/27/2023 [facility] REASON FOR VISIT (unrecogniz ed section and [...] Active Debi Mares MD Attending Provider Active Team Status: Inactive Member Role Status Dates Mic Bowen MD Primary Care Provider Active Start: August 10, 2023 End: August 10, 2023 Debi Mares MD Attending Provider Active Start: August 10, 2023 End: August 10, 2023 Team Status: Inactive Member Role Status Dates Mic Bowen MD Primary Care Provider Active Start: August 31, 2023 End: August 31, 2023 Debi Mares MD Attending Provider Active Start: August 31, 2023 End: August 31, 2023 Team Status: Inactive Member Role Status Dates Mic Bowen MD Primary Care Provider Active Start: October 26, 2023 End: October 26, 2023 Debi Mares MD Attending Provider Active Start: October 26, 2023 End: October 26, 2023 Contracts Administrator Relationship Specialty Start Date End Date Cooper Hardwick MD PCP - General Family Medicine 02/25/23 Goals (unrecognized section and content) Goals may [...] BE BASED ON THE PRIMARY CLINICAL RECORDS. [facility] [employer] [facility] provides no warranty or guarantee of the accuracy or completeness of information in this document.
--- NOTE | 2023-11-03 11:15 | VEIN_ITS ---
[address] [address] Patient Name: EB MÉNDEZ MRN: [id number] date: 1975 Sex: F Assigned Patient Location: Current Patient Location: Accession/Order Number: [id number] Exam Date: 11/03/2023 11:20 Report Date: 11/03/2023 14:09 At the request of: BECKY TORRES Procedure: VC INJ Foam Sclerosant WUS LAUNDRY ATTENDANT PROCEDURE: VC INJ Foam Sclerosant WUS LAUNDRY ATTENDANT COMPARISON: None. HISTORY: Pain due to varicose veins of bilateral legs I83.813 Pre-operative Diagnosis: CEAP class C3 venous insufficiency with pain, tenderness, edema and incompetent left great saphenous and varicose vein(s), chronic venous insufficiency left leg secondary to venous incompetence Post-operative Diagnosis: CEAP class C3 venous insufficiency with pain, tenderness, edema and incompetent left great saphenous and varicose vein(s), chronic venous insufficiency left leg secondary to venous incompetence Procedure Performed: 1. Ultrasound-guided microfoam chemical ablation with Varithenaregistered 2. Intraoperative ultrasound guidance Anesthesia: None Indications for Procedure: 48-year-old female who presents with a long history of lower extremity pain and swelling in varicose veins. The patient failed conservative medical therapy including medical compression stockings, exercise and analgesics. Prior procedures include endovenous laser ablation and Microfoam chemical ablation. 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 Duplex scan showed reflux and enlarged diameters up to 4 mm. The patient underwent informed consent including management options where the complications of infection, bleeding, pain, and skin injury were discussed. Particular attention was spent discussing thrombus extension and deep vein thrombosis as well as the possibility of pulmonary embolus and treatment with oral or injectable blood thinners. Procedure: The patient walked to the procedure room. All applicable staff donned appropriate apparel. A procedure timeout was performed to confirm correct patient, correct extremity, correct procedure, and correct room set-up including presence of all applicable supplies, devices, and drugs. A duplex ultrasound, performed by myself confirmed the location and incompetence of branch saphenous varicosities and their course was marked on the skin together with the dilated tributaries. The extent of treatment of the vein and the associated varicosities was determined through ultrasound mapping. The skin was prepped and then punctured with a butterfly needle and advanced under ultrasound guidance. The Varithenaregistered canister was activated and the canister was primed and purged as required in the instructions for use. Varithenaregistered was drawn into a sterile syringe. The following injections were made: 4 cc injected into a 4 mm varicose vein left medial distal lower leg 6 cc injected into a 4 mm varicose vein left medial distal thigh 3 cc injected into a 4 mm varicose vein left lateral mid thigh 2 cc injected into a 3 mm varicose vein left lateral knee Varithenaregistered was slowly administered at 0.5-1.0 cc/second with close observation by ultrasound of its course in the vessels. Total volume utilized was: 15cc. Following administration of Varithenaregistered the leg was elevated and the patient was asked to repeatedly dorsiflex the ankle to limit flow of Varithenaregistered into perforating veins. Once appropriate spasm had been confirmed in the treated veins, the vascular catheter was removed from the leg and light pressure was applied over the puncture site for hemostasis. The common femoral and deep superficial veins were then evaluated for flow and compressibility prior to dressing placement. The lower extremity was kept elevated at 45 degrees above the horizontal and cording material was applied over the saphenous segments and tributaries to allow for eccentric compression over the target vessels including the targeted saphenous vein(s). A multilayer dressing was applied consisting of foam pads, coban and thigh-high 20-30 mm Hg compression elastic support hose were placed on the patient. The leg was lowered only after compression had been applied and the patient was immediately ambulatory. The patient ambulated 10 minutes under supervision and was without apparent concerns at time of release. Post-care instructions include advising patient to keep post-treatment bandages in place and dry for 48 hours, avoid extended periods of inactivity, avoid heavy exercise for one week, wear compression stockings on the treated leg continuously for two weeks, to walk daily for 10 minutes over the next month. The patient was instructed to take an anti-inflammatory medicine as needed and to follow up for color duplex scan of the Saphenous veins, the treated branch saphenous varicosities, the adjacent deep veins, and additional treatment within 7 days. PERSONNEL: Kade White RN Electronically authenticated by: BECKY TORRES Date: 11/03/2023 14:09
== END 2023-11-03 10:56 | disposition home or self-care (01) ==
LOC: VC 10:55
PROVIDERS: PCP Radiology Diagnostic Radiology; Visit Provider Radiology Diagnostic Radiology
DX: I83.813 Varicose veins of bilateral lower extremities with pain (principal)
CPT/HCPCS: 36466

== ENCOUNTER 2023-11-10 11:27 | Outpatient (OUT) | payer OTHER, SELFPAY ==
--- NOTE | 2023-11-10 11:28 | VEIN_ITS ---
Patient Name: EB MÉNDEZ MR#: [id number] : 1975 Exam Date: 11/10/2023 Ordering Doctor: DR BECKY TORRES M.D. RADIOLOGY REPORT PROCEDURE: [facility] - OFFICE VISIT FOLLOW UP [facility] PROGRESS NOTES: The patient reports improvement in leg symptoms. There has been interval reduction in varicosities. The patient has followed our recommendations to walk 20-30 minutes once or twice per day since the procedure. Physical exam demonstrates decrease in varicosities of the leg. Persistent varicosities are identified along the legs bilaterally. Review of the ultrasound performed the same day demonstrates occlusive thrombus extending throughout the treated vein(s), see separate report, consistent with a successful ablation. No thrombus extending into or beyond the saphenofemoral junction. The patient expressed a desire to proceed with treatment of remaining incompetent varicosities. The patient was informed that treatment was a process and would require 1-2 procedures/sessions. [facility]: 1. Successful ablation of the left leg treated branch saphenous vein(s). 2. Persistent varicose veins and lower extremity symptoms. PLAN: Microfoam chemical ablation of remaining branch saphenous varicosities. Nurse notes, history and physical were reviewed and confirmed, see attached forms. The nurse was present throughout the physical exam and consultation Dictated by: Kyle Dick M.D. on 11/10/2023 at 12:21 Approved by: Kyle Dick M.D. on 11/10/2023 at 12:22
--- NOTE | 2023-11-10 11:28 | VEIN_ITS ---
Patient Name: EB MÉNDEZ MR#: [id number] : 1975 Exam Date: 11/10/2023 Ordering Doctor: DR BECKY TORRES M.D. RADIOLOGY REPORT PROCEDURE: VC EXT VENOUS LT LIMITED COMPARISON: VC EXT VENOUS LT LIMITED, 08/24/2023. INDICATIONS: Phlebitis of superficial veins of lt lower extremity I80.02 TECHNIQUE: Lower extremity phelps scale and Duplex Doppler evaluation of the deep venous system from the inguinal ligament through the calf veins. FINDINGS: REGION: Left lower extremity. THROMBI: Negative for DVT. Varithena induced thrombus visualized at lateral knee, prox/med calf, mid/med thigh, dist/med thigh. COMPRESSIBILITY: Non-compressible segments corresponding to thrombus FLOW: Areas of no flow corresponding to thrombus OTHER: AASV is patent and is a 4.6cm segment with varicose veins arising off. CONCLUSION: 1. Successful post ablation occlusion of left leg treated branch saphenous varicosities. Dictated by: Kyle Dick M.D. on 11/10/2023 at 12:20 Approved by: Kyle Dick M.D. on 11/10/2023 at 12:21
--- OUTSIDE RECORDS SUMMARY | 2023-11-10 11:31 | XMS_ITS | CCD ---
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 Admitting Unavailable MIC BOWEN. Primary Care Unavailable MIC BOWEN. Attending Unavailable MIC BOWEN. Primary Care Unavailable MIC BOWEN. Admitting Unavailable MIC BOWEN. Attending Unavailable MIC BOWEN. Admitting Unavailable MIC BOWEN. Primary Care Unavailable MIC BOWEN. Attending Unavailable MIC BOWEN. Admitting Unavailable MIC BOWEN. Primary Care Unavailable MIC BOWEN. Attending Unavailable Cooper Hardwick MD Primary Care Provider Cooper Hardwick MD Primary Care Provider AMANDA CLEMONS Referring Unavailable AMANDA CLEMONS Attending Unavailable MIC BOWEN Attending Unavailable MD Mic Bowen Primary Care Provider MD Suzan Imsanthosh Attending Provider Asaad, Imad Admitting Unavailable Mic Bowen Primary Care Unavailable Asaad, Imad Attending Unavailable Asaad, Imad Attending Unavailable Mic Bowen Primary Care Unavailable Asaad, Imad Admitting Unavailable Asaad, Imad Attending Unavailable Mic Bowen Primary Care Unavailable Asaad, Imad Admitting Unavailable Asaad, Imad Attending Unavailable Mic Bowen Primary Care Unavailable Asaad, Imad Admitting Unavailable Allergies Allergy Classification Reported Allergen(s) Allergy Type Date of Onset Reaction(s) Facility (1 source) Gluten; Translations: [Glutens] Propensity to adverse reactions to food (disorder) [facility] Repository (1 source) No Known Medication Allergies; Translations: [No Known Medication Allergies] Propensity to adverse reactions to drug (disorder) [facility] Repository (3 sources) Escitalopram Drug Allergy 3 [facility] Healthcare (3 sources) Latex Propensity to adverse reactions 7 [facility] Healthcare Medications Current Medications Medication Drug Class(es) Dates Sig (Normalized) Sig (Original) cholecalciferol 0.125 mg oral tablet (12 sources) Vitamin D Start: 08-18-2022 take 1 tablet by mouth once daily Cholecalciferol (Vitamin D3) (Vitamin D3) 125 mcg (5,000 unit) Tablet Active 89630 UNIT PO Daily August 18, 2022 12:00am take 2 capsules by m outh every twenty-four hours Vitamin D3 1.25 MG (05970 UT) 2 capsules Orally Daily Active ciprofloxacin 3 mg/ml ophthalmic solution (1 source) Quinolone Antimicrobial Start: 12-30-2022 Ciprofloxacin HCl 0. 3 % 1 drop into affected eye Ophthalmic Every 2 hours while awake days 1-2, then every 4 hours while awake days 3-7 for 7 days Dec, Active esomeprazole 40 mg delayed release oral capsule (3 sources) Proton Pump Inhibitor Start: 10-03-2023 esomepra zole (NexIUM) [address] capsule Start: 09-07-2023 take 1 capsule by mo uth every twenty-four hours NexIUM 40 MG 1 capsule Orally Once a day for 30 days *STOP OMEPRAZOLE 40 MG DAILY DUE TO SIDE EFFECTS. SWITCH TO NEXIUM 40 MG DAILY Aug, Active levothyroxine sodium 0.025 mg oral tablet (8 sources) l-Thyroxine Start: 09-11-2023 End: 03-09-2024 take [...] day for 30 day(s) Active Multivitamin preparation (5 sources) Start: 2 take 1 tablet by mouth once daily Multivitamin Active 1 TAB PO Daily August 18, 2022 12:00am omeprazole 40 mg delayed release oral capsule (2 sources) Proton Pump Inhibitor Start: 3 take 40 mg by mouth once daily Omeprazole Active 40 MG PO Daily August 31, 2023 12:00am Thyroid (Pork) ([place] Thyroid) 60 mg Tablet (3 sources) Start: 8 take 1 tablet by mouth twice daily Thyroid (Pork) ([place] Thyroid) 60 mg Tablet Active 60 MG PO Twice daily November 16, 2017 12:00am thyroid (prison) 60 mg oral tablet (12 sources) Start: 8 End: 4 take 1 tablet by mouth in the morning thyroid ([place] Thyroid) 60 MG tablet Indications: Sick-euthyroid syndrome , Central hypothyroidism (CMS/HCC) , Chronic fatigue Take 1 tablet (60 mg) by mouth in the morning and 1 tablet (60 mg) in the evening. Take before meals. 180 tablet 1 08/24/2023 02/20/2024 Active Completed/Discontinued Medications Medication Drug Class(es) Dates Sig (Normalized) Sig (Original) acetaminophen 325 mg / HYDROcodone bitartrate 5 mg oral tablet (5 sources) Opioid Agonist Start: 11-19-2017 End: 08-18-2022 take 1 tablet by mouth every six hours Hydrocodone-Acetami nophen ([place]) 5-325 mg tablet Discontinued 1 - 2 TAB PO Q6H November 19, 2017 August 18, 2022 7:38am ibuprofen 600 mg oral tablet (5 sources) Nonsteroidal Anti-inflammatory Drug Start: 11-19-2017 End: 08-18-2022 Ibuprofen Discontinued 600 MG PO Every 6 hours November 19, 2017 12:00am August 18, 2022 7:38am do not exceed 4 doses in a 24 hour period Levonorgestrel-Ethi nyl Estrad (Tyblume) 0.1-20 MG-MCG chewable tablet (3 sources) Start: 09-06-2023 End: 11-02-2023 Levonorgestrel-Ethi nyl Estrad (Tyblume) 0.1-20 MG-MCG chewable tablet Indications: Encounter for surveillance of contraceptive pills Chew 1 tablet in the morning. 28 tablet 11 09/06/2023 11/02/2023 Discontinued (Therapy completed) Start: 09-06-2023 End: 09-05-2024 Levonorgestrel-Ethinyl Estra d (Tyblume) 0.1-20 MG-MCG chewable tablet Indications: Encounter for surveillance of contraceptive pills Chew 1 tablet in the morning. 28 tablet 09/06/2023 09/05/2024 Active Multivit 36-Hvum-Sypolk 1-Dha (Pnv-Dha) 27 mg iron-1 mg -300 mg Capsule (5 sources) Start: 11-16-2017 End: 08-18-2022 take 1 capsule by mouth once daily Multivit 46-Pnww-Zyrlau 1-Dha (Pnv-Dha) 27 mg iron-1 mg -300 mg Capsule Discontinued 1 cap/day PO Daily November 16, 2017 12:00am August 18, 2022 7:39am Problems Active Problems Problem Classification Problem Date Documented Da te Episodic/Chronic Acute and chronic tonsillitis (7 sources) Amygdalolith; Translations: [Other chronic diseases of tonsils and adenoids] Chronic Allergic reactions (3 sources) Non-celiac gluten sensitivity; Translations: [Celiac disease] Onset: 03-05-2023 03-05-2023 Chronic Anxiety disorders (3 sources) Generalized anxiety disorder; Translations: [Generalized anxiety disorder] Onset: 03-05-2023 03-05-2023 Chronic Female infertility (3 sources) Luteal phase defect ; Translations: [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] Onset: 03-05-2023 03-05-2023 Chronic Inflammation; infection of eye (except that caused by tuberculosis or sexually transmitteddisease) (1 source) Unspecified acute conjunctivitis, right eye Episodic Malaise and fatigue (3 sources) Fatigue; Translations: [Chronic fatigue, unspecified] Onset: 03-05-2023 03-05-2023 Chronic Menstrual disorders (3 sources) Menorrhagia; Translations: [Excessive and frequent menstruation with regular cycle] Onset: 03-05-2023 03-05-2023 Chronic Mood disorders (3 sources) Recurrent major depressive episodes, moderate ; Translations: [Major depressive disorder, recurrent, moderate] Onset: 03-05-2023 03-05-2023 Chronic Nutritional deficiencies (3 sources) Vitamin D deficiency; Translations: [Vitamin D deficiency, unspecified] Onset: 03-05-2023 03-05-2023 Chronic Other ear and sense organ disorders (3 sources) Hearing loss; Translations: [Unspecified hearing loss, unspecified ear] Onset: 03-05-2023 03-05-2023 Chronic Other ear and sense organ disorders (3 sources) Sensorineural hearing loss, bilateral; Translations: [Sensorineural hearing [...] stool; Translations: [Other fecal abnormalities] Episodic Other screening for suspected conditions (not mental disorders or infectious disease) (4 sources) Patient encounter status; Translations: [Encounter for screening mammogram for malignant neoplasm of breast] 11-02-2023 Episodic Thyroid disorders (20 sources) Subclinical hypothyroidism; Translations: [Hypothyroidism, unspecified] Onset: 05-12-2022 Resolved: 05-12-2022 Chronic Past or Other Problems Problem Classification Problem Date Documented Da te Episodic/Chronic Abdominal pain (9 sources) Left lower quadrant pain; Translations: [Left lower quadrant pain] Onset: 3 Episodic Other ear and sense organ disorders (3 sources) Bilateral tinnitus; Translations: [Tinnitus, bilateral] Onset: 3 03-05-2023 Episodic Other ear and sense organ disorders (3 sources) Tinnitus of left ear; Translations: [Tinnitus, left ear] Onset: 3 03-05-2023 Episodic Other gastrointestinal disorders (9 sources) Constipation; Translations: [Constipation, unspecified] Onset: 3 03-05-2023 Episodic Other gastrointestinal disorders (2 sources) Abdominal distension (gaseous); Translations: [Abdominal distension (gaseous)] Onset: 3 Episodic Other nutritional; endocrine; and metabolic disorders (3 sources) Overweight; Translations: [Overweight] Onset: 3 03-05-2023 Episodic Phlebitis; thrombophlebitis and thromboembolism (8 sources) Phlebitis and thrombophlebitis of superficial vessels of left lower extremity; Translations: [Phlebitis and thrombophlebitis of superficial vessels of lower extremities, bilateral] Onset: 1 Episodic Thyroid disorders (3 sources) Sick-euthyroid syndrome; Translations: [Sick-euthyroid syndrome] Onset: 3 03-05-2023 Episodic Varicose veins of lower extremity (4 sources) Varicose veins of bilateral lower extremities with pain; Translations: [VARICOSE VNS HALEY LOW EXTREM W/PAIN] Onset: 1 Episodic Results Test Name Value Interpretation Reference Range Facility CT abdomen pelvis w [facility] CT abdomen pelvis w [facility] Main [place] [address] [place] [address] CT Scan Report Signed Patient: Eb De La Torre MR#: [id number] 71 : 1975 Acct:[id number] Age/Sex: 48 / F ADM Date: 11/09/23 Loc: CT Room: Type: [facility] Attending Dr: Debi Mares MD Copies to: Debi Mares MD Ordering Provider: Debi Mares MD Date of Service: 11/09/23 CT/CT abdomen pelvis w con: M24.20 CT ABDOMEN AND PELVIS WITH CONTRAST COMPARISON: Abdominal ultrasound 08/10/2023 and gastric emptying study 10/26/2023 CLINICAL DATA: Nausea, bloating and constipation. Spiral images were obtained through the abdomen and pelvis following oral and 90 mL of Isovue-300. This CT exam was performed using one or more following dose reduction techniques: Automated exposure control, adjustment of the mA and/or kV according to patient size, or use of iterative reconstruction technique. Limited cuts through the lung bases show no contributory findings. No calcified gallstones are identified. No intrahepatic masses are seen. The spleen, pancreas and adrenal glands show no acute findings. There are symmetric renal nephrograms, without hydronephrosis. The abdominal aorta is normal caliber. No obvious adenopathy is noted within limits of paucity of fat. The small bowel loops are not distended. Multiple small bowel loops are visualized posterior to the stomach which correlates with the finding seen on the recent gastric emptying study. There is no suspected malrotation. Stool is present throughout the colon. The bony structures are intact. Images through the pelvis show no appendiceal inflammation. There is no dilated small bowel. There is stool at the cecum. The rectosigmoid colon is underdistended. No diverticular disease is noted. The uterus is retroverted. There is a right ovarian cyst measuring 3.3 cm in size. There are small follicles within the left ovary. No bladder abnormalities are present. Small benign- appearing inguinal lymph nodes are visualized. There is a small amount of free fluid at the posterior cul-de-sac. This might be physiologic. CT/CT abdomen pelvis w con IMPRESSION: NO BOWEL OR URINARY TRACT OBSTRUCTION. RETROVERTED UTERUS. 3.3 CM RIGHT OVARIAN CYST. SMALL AMOUNT OF FREE FLUID AT THE POSTERIOR CUL-DE-SAC. THIS MAY BE PHYSIOLOGIC. Impression dictated by: Ana Lilia Thompson M.D.11/09/2023 5:17 PM Dictation Location: [place] [address] Transcribed By: [facility] 11/09/231716 Dictated By: Ana Lilia Thompson MD 11/09/231709 Signed By: 11/09/231716 [facility] Laboratory - Cytologyon 10-22 Digital Production Operator Cyto stain Nom (Cvx/Vag) [ID] [facility] Comment on above: KMB, CT(ASCP) CT scr eening location: [facility] [employer] [facility], [address] [place] [address], [place] [address]. Cytology study comment Cyto stain Reza (Cvx/Vag) [Interp] [facility] Comment on above: This Pap test has be en evaluated with computer assisted technology. Microscopic observation Cyto stain Nom (Cvx) [facility] Comment on above: Cytology Results: Ne gative for intraepithelial lesion or malignancy. Specimen source Cyto stain Nom (Cvx/Vag) [facility] Comment on above: None given Statement of adequacy Cyto stain (Cvx/Vag) [Interp] [facility] Comment on above: Satisfactory for yoseph luation. Endocervical/transformation zone component absent. Laboratory - Microbiology an d Antimicrobial susceptibilityon 11-03-2023 HPV E6+E7 mRNA GEORGIANA+probe Ql (Cvx) Not detected Not Detected [facility] Comment on above: Methodology: Transcr iption-Mediated Amplification This assay detects E6/E7 viral messenger RNA (mRNA) from 14 high-risk HPV types (16,18,31,33,35,39,45,51,52,56,58,59,66,68). Cervical sources are required for HPV testing. If a vaginal source from a patient who has had a total hysterectomy with removal of cervix was submitted, please contact the testing laboratory for alternative testing options. For additional information, please refer to http://education.[employer]/faq/DJZ130o4 (This link if provided for information/ educational purposes only.) No Panel Informationon 11-03 (ALWAYS MESSAGE) [facility] Comment on above: EXPLANATORY NOTE: The Pap is a screening test for cervical cancer. It is not a diagnostic test and is subject to false negative and false positive results. It is most reliable when a satisfactory sample, regularly obtained, is submitted with relevant clinical findings and history, and when the Pap result is evaluated along with historic and current clinical information. Clinical information [facility] Comment on above: None given Date of previous biopsy [facility] Comment on above: NONE GIVEN Date of previous PAP smear [facility] Comment on above: NONE GIVEN Last menstrual period start date [facility] Comment on above: NONE GIVEN Performing Organizat ion Information Site ID: [id number] Name: [facility] Address: [address] [place] [address], [address] [place] [id number] Director: Bryce Artis MD Formerly [facility], [facility] BI MAMMOGRAM SCREENING TOMOS YNTHESIS BILATERALon 11-02-2023 BI MAMMOGRAM SCREENING TOMOSYNTHESIS BILATERAL This is a summary report. The complete report is available in the patient's medical record. If you cannot access the medical record, please contact the sending organization for a detailed fax or copy. EXAMINATION: BI MAMMOGRAM SCREENING TOMOSYNTHESIS BILATERAL CLINICAL HISTORY: screening mamm COMPARISON: Priors dating back to 2019. RESULT: 3-D tomosynthesis imaging of the bilateral breasts was performed. Density: Heterogeneously dense [3] There are no suspicious masses or asymmetries, areas of architectural distortion or suspicious areas of microcalcifications. IMPRESSION: BIRADS 1 - Negative Recommended follow-up: Routine Screening Mamm Board Certified Radiologists. Accredited by the ACR and FDA. MAMMOGRAPHY IS VERY IMPORTANT TO YOUR HEALTH. THE [employer] GUIDELINES RECOMMEND THAT WOMEN 40 YEARS OF AGE AND OLDER SHOULD HAVE A MAMMOGRAM EVERY YEAR. A REMINDER LETTER WILL BE SENT AT THE APPROPRIATE TIME. THIS FACILITY UTILIZES A REMINDER SYSTEM TO ENSURE ALL PATIENTS RECEIVE REMINDER NOTIFICATIONS AT THE APPROPRIATE TIME BASED ON THE RECOMMENDATIONS OF THIS EXAM. THIS INCLUDES REMINDERS FOR ROUTINE SCREENING MAMMOGRAMS, DIAGNOSTIC MAMMOGRAMS IN WHICH THE PATIENT IS ASKED TO RETURN FOR ADDITIONAL VIEWS, OR OTHER BREAST IMAGING INTERVENTIONS WHEN APPROPRIATE. THE PATIENT WILL BE PLACED IN THE APPROPRIATE REMINDER SYSTEM INCLUDING A REMINDER AT THE APPROPRIATE TIME FOR ANY PENDING ADDITIONAL VIEWS. ELECTRONICALLY SIGNED BY: Kin Graves MD Normal Not Available NM gastric emptying studyon 10-26-2023 NM gastric emptying study [facility] [place] [address] Nuclear Medicine Report Signed Patient: Eb De La Torre MR#: [id number] 71 : 1975 Acct:[id number] Age/Sex: 48 / F ADM Date: 10/26/23 Loc: [place] Room: Type: [facility] Attending Dr: Debi Mares MD Copies to: MD Ana Lilia Cleaning MD Ordering Provider: Debi Mares MD Date of Service: 10/26/23 NM/NM gastric emptying study: R14.0, R10.13 GASTRIC EMPTYING [...] semisolids is between 45 and 60 minutes. NM/NM gastric emptying study IMPRESSION: LIMITED EXAM DUE TO HIGH POSITION OF THE LIGAMENTUM OF TREITZ WHICH PARTIALLY OBSCURES THE STOMACH, AFFECTING COUNTS AND TIME ACTIVITY MEASUREMENTS Impression dictated by: Ana Lilia Thompson M.D.10/26/2023 12:42 PM Dictation Location: [place] [address] Transcribed By: [facility] 10/26/23 124 Dictated By: Ana Lilia Thompson MD 10/26/23 0921 Signed By: 10/26/23 124 Normal [facility] HCG ( test) IA.josei d Ql (U)Ordered By: Debi Mares on 08-31-2023 HCG ( test) Ql (U) Negative [facility] HCG,Urineon 08-31-2023 Beta HCG ( test) Ql (U) Negative [facility] Comment on above: Result Comment: PERF ORMED BY: [place] [address] PATHOLOGIST DIAMOND MERCHANT RIZWANA NEGRO M.D. Performed By: #### U HCG #### [address] 08-31-2023 L ----- Specimen: [id number] Received: 08/31/23 Status: ENOC Reggie Num: [id number] Spec Type: Surgical Subm Dr: Debi Mares MD Tissues: A Duodenum - Biopsy (DUOD) B GASTRIC FOR HP (GASTRIC HP) Procedures: HE/4, Gross/Micro L4/2, H PYLORI Age/ Patient Sex Location Account Attending Physician Eb De La Torre 48/F [id number] Debi Mares MD SPEC NUM: [id number] RECD: 08/31/23 STATUS: ENOC PAREDES NUM: [id number] RICKY: 08/31/23 [facility] DR: Debi Mares MD ENTERED: 08/31/23 [facility] DR: DELMAR TYPE: Surgical DEPT: S ENTERED BY: [id number] RECV BY: [id number] ORDERED: HE/4, Gross/Micro L4/2, H PYLORI ORDERED: [...] submitted in one cassette labeled A1. Specimen: [id number] Received: 08/31/23 Status: ENOC Paredes Num: [id number] Spec Type: Surgical Subm Dr: Debi Mares MD Tissues: A Duodenum - Biopsy (DUOD) B GASTRIC FOR HP (GASTRIC HP) Procedures: HE/4, Gross/Micro L4/2, H PYLORI Patient: Eb De La Torre [id number] (Continued) Specimen: [id number] Received: 08/31/23 (Continued) Gross Description (Continued) Signed (signature on file) Christine Snyder MD 09/01/23 1731 Specimen: [id number] Received: 08/31/23 Status: ENOC Paredes Num: [id number] Spec Type: Surgical Subm Dr: Debi Mares MD Tissues: A Duodenum - Biopsy (DUOD) B GASTRIC FOR HP (GASTRIC HP) Procedures: HE/4, Gross/Micro L4/2, H PYLORI Patient: Terence De La Torren Theodore [id number] (Continued) Specimen: [id number] Received: 08/31/23 (Continued) Gross Description (Continued) B. Received in formalin labeled with the patient's name, date of and gastric biopsy is one mckinney tissue measuring 0.3 cm. Entirely submitted in one cassette labeled B1. Microscopic Description A. Two H E slides reviewed. The microscopic examination confirms the diagnosis. B. Two H E slides reviewed. The microscopic examination confirms the diagnosis. CPT Codes 87181s0, 68006 x 1 Specimen: [id number] Received: 08/31/23 Status: ENOC Paredes Num: [id number] Spec Type: Surgical Subm Dr: Debi Mares MD Tissues: A Duodenum - Biopsy (DUOD) B GASTRIC FOR HP (GASTRIC HP) Procedures: HE/4, Gross/Micro L4/2, H PYLORI Patient: Eb De La Torre [id number] (Continued) Signed (signature on file) Christine Snyder MD 09/01/23 9518 [facility] Reverse T3 LCon 08-12-2023 Reverse T3 LC 12.5 ng/dL Invalid Interpretation Code 9.2-24.1 [facility] Comment on above: Result Comment: This test was developed and its performance characteristics determined by [facility]. It has not been cleared or approved by the Food and Drug Administration. Performed At: [address] [id number] Michelet Barnes MD Ph:[phone] Performed By: #### 1 [id number] #### [facility] (DEFAULT) [address] [place] [address] US abdomen limitedon 023 US abdomen limited [facility] Main [place] [address] [place] [address] Ultrasound Report Signed Patient: Eb De La Torre MR#: [id number] 73 : 1975 Acct:[id number] Age/Sex: 48 / F ADM Date: 08/10/23 Loc: Room: Type: [facility] Attending Dr: Debi Mares MD Ordering Provider: [...] . Impression dictated by: Jian Farley Jr., D.OJames08/10/2023 12:44 PM Dictation Location: [place] [address] Tech: Brittney Otoole Transcribed By: [facility] 08/10/23 1244 Dictated By: Jian Farley Jr, DO 08/10/23 124 Signed By: 08/10/23 1244 [facility] Coding Summaryon 08-07-2023 Coding Summary HTMLBase 64 GwarlfldSRy8nXz+PGhlYWQ+P V0ASBAdH82pyWKejF9mY2SNFV lOSywgQVBQTElOSyIgbmFtZT1 kaXNjZXJu IC8+MC8dWPTiCxvpqWVsk4V2i JY1B98bqe1iYHvwlIA5QCZjRt Tpmkjxd8hrnTg6YGswUfmlVnZ t ZBYijY05PDG8xV64Yg72oQGiu EDfz4ikaBj6OjDlFYYpATY2zE daTUmrw6FaUNNhS21flDNar8R 6 TNQjxPpryCQbOiTapIN9hW2xR Ytrprfcm8vxdmomLmt4uo62uK Bro8J1tIR2M6VxopT2DKXuiKR g QbtbmBUQyO8gdzclc5grgcrrN zNhOSQvOMi3JWs0XLXnuQwsYg QqJM66SHY7XSScdvGwE5IxOXI s kRfyCnP8y8V0Wn7OT9JXMxljC 1VNTUFSWTwvdGQ+LZ52pz93V2 DjFiqgSkw2VYAxEDH9oKT2eX7 n OLDpYXabf0X3yWU8Y4JmiyQke s6ak7nmRAHcJHkaD72gdQCtw8 Y8VHPhqZZ0BBAczGwaIrHbrY8 3 Oyc+MWFtdNtvi4NvQcceh9otz 4phhPg7QbfdNBMjfeWbfEufRS T8s4UzOj3tXZMjfTJ1kDU4vA0 i McVgDrS8ORojA386IhKlfFHoU tpnA00eT3EsfTV+FEDgVtm5XK DlhDwkVB1sD9VuJDNnpiumjOE m rGotDR5zSLKwjoonIWGbjY7rP ROnP5n3TkPxWkC4TVauC8CsSL BogetsOx42xC0nHoIlXrS1NNo u V9EdzcS9NJQgeMLeSXsrFLA4M 42dk7D5HNRvATZsLBV4hZC5rI 1hbGlnbjogbGVmdDsgdmVydGl j EHwiFRsiE123FCJjoEysCuJpB GluZyBEYXRlOiAgMTEvMTcvMj AyMzwvdGQ+BRJhCLA4cPehASP n gHJnEBiwCq0avWvzaQtjHU1jV VFhebqeAVLpjX6mGSEyfDTkjG svPV0dDSBjmitng802OeYrHWL 0 NKBwtLRpH4AwiJ7bVvWpNBKeK QDqQ4FihPCjTVieB854XFpuPf L6ZAPghzFwM8MrHBTndKdmQyL 0 o8D2Bo7Lu6BbnqdxF1VtdJHxB tAoSyqmDVe1P6VvZbdqxBR+PC 02MVAaUC07NZe0VZR5rOhxALb i LTPtR9BrgD8jUlEjHUReQLAnH yc+PHRhYmxlIHdpZHRoPScxMD SiYlXojZfeYO5fPd8nRFLcNZK v ePifjNIeKwXxg2vjNEPyJWtwH Y9jrSsiS4DhuEJ6DGTzg1y1Lh 81M30kH6CbmVZ+QPXtmHM7lHL 0 gR8uDsAkMtF3PLmvP258AcPxd DVzUrigk0did1kolOr5YhK9YY FekyRpzZdcRUP4i1YwGk24V96 s IHdpZHRoPSIxNSUiIHZhbGlnb r4ocV1ePf1+PNUtiVZ7cSQ1jI 3iUuEiMgN5BLjmD385KbNryZS v Zbnxd7btn3jpeUh4OnPxTYOsm nOlvZkhJLJ1k3JsQl60Y6EndG ieq0WkMbs5ox85pTRqb4T9rJV 9 T6YsFMKgtngthJIwhOvwXJ0jV WMtwwjbHWMezG8gOXJiA0n4Of JkGyN2EDriV6TcdpK5VJHzuZD g ADRnfGKAhY2jjloqf0taskfiJ lEyTJQwUSj8ZAm8YXAacJcuYz XbOEQ6MmF9SAG9nUCzpQ0nnNp n ofqrvP4lRqg+DFU8pVZvjMWSB Y3yZrlwpWE+EQYtXEW6gBjlWO uiEKAjkQ2sYBKvG0m2VoLvIsU 1 FTdpK0BqcoR8CVNuwHRdBQDyh VXYgE3ybaidl4patbuaSdXhRJ YfOFl2BIj2CGHesIemQhFjTZZ 0 AzW4ILK0bIJarZ0ioClzebtdx G9wOyc+SfkyaUojMFF2QGq4G2 WmSxp2ANJytFnjKB5vvIMaALf u Vv8fgZbmkEzhJS7vVEBtdtsot 303BbZhy1zhOEKsjNBxTNxaPT S3N42gu4M6AVSnNGPsOKH2lCE 4 kJ8ulOtzcxsaxVChdSmfxkJuz IixRSyvUGdbG844SWRtqIudGj TkZZt8S1PbXmx5QMOvrXalSK7 n xJJkNTsmGh3wyKorkHmrVY6kG COaaagak893JpIvy1cwWBZsdS SvEKusIUE7Q36zz8Y6QEDmSTM w EJJ9yQS1vX0hnPosjliynWRyv EiiamXkrSreOWxyYAsnC658VC WybVwqPtHkbEs4K1EoQlq5JZN z jMgyAQ4svQRcXZgqFe9ghHdnu VsqQF4iWHGedcftk925GtVvf9 dfOOTnuPPqLFplMYY2N79lm7X 6 BNDgBMIrTSQ7aJG6zB7luKwgx jogbGVmdDsgdmVydGljYWwtYW shJ238LACyyWloUwVupLkksiQ g PXstBQx7L2CeWeypoFX+PC90Y HSbZO45kYMfrZPjv0vusWa1Yb TbFXOiBVE8kXasQDojp0XxLEF t V35ymILih2N3HSXgnFndnQOaO kTmrDC8dV7nSFeyeuodq6fldx zvCflhk3raai91eQ47Y65vXIu p PGGiUIGzPTSzJJSkcXziwz7yq G9wIi8+AETjmAO2pJS9kS7gJW NqIwU3NFxzY310SjIpsJUtXeo j b6tww4wydXs5QuF5LEWcfuGgf RfzOOT6l3PeIc75B32vSVvcEF XcUCKfQMAfNMWviKcrxx4fqA2 w Ii8+PKIsqKL6mZE9zK7tEgOvI bY9RHgqQ129XzWluFYdOaquT1 2sP8ThfGL+IJRpVsm1MIOpyYj s KA1mzEUdGKnbPw3hZEO3NwPwO wLySXkhM9SqEZHlttcjjjnvwH U7PGKaHCHjwX56Ng3ohLjsSBI w tADKhY8jgiviq7bidtqwPiLvD GLvUUk6DDa7RXRyjPjoHbAnRE L3TyW0RKN1dTIfhG0nfOnzebn g vU2jJ0SzQKNonyqhXp52zP2mB pPfIcK6RYgzTsq+YwRNIo7qCv WBQODpDEdMO8fXUcGDPK69ZR4 8 eDIuz0C5fTA4I8SoFDMqbuwis priiEH5XZAdABQcpV55qULvHV zwTa0ei5D4p484WUSpKRCpfT1 7 Tt7xpPiiKIDmuOQFsS1stprho 5yjaacsWaFyFHZrOAg6JNv0UR QrsAolQrYfFKV9IpJ7NUR3pEG h yU5zjFbdyesntS3rHcn+MTAvM YPwDAj7CsonqRZ+HJFbGFJ1oI dfCVtqODNdeR7zZRRjT0l6OvI w QmZ4VJbqR8KhWSPmizgcHw62m R8nEiXlTeU8VKgzH0BnrxK1GY HifMBoAXhbSNQ2U73gt0U9NNJ w SSCfXDS7tVI8zB5ghXdfbntic GVmdDsgdmVydGljYWwtYWxpZ2 95EVLvqShtRjD3RIwbVANaVQ4 0 OX29qQEdn1D4oIA5U3TwRRDoz wqdrdhxdCQ4QUEwSKEbqP08qN TfVLpnEu0rf6L7y274PFAbNPA w jQ18Jx7ifQoqDUBnjJTSnJ4tb llkt4wwoemuRrCcQNTcUKe4TD k5FBZivZakAjCmHGZ1HcX7QSO 0 cEBdwE5aiQclyhpapN1dKxe+R qQFEQsSMC91JY79sNCgd6F8aL P8B7GtDEXvjupawujtlDJ5MVD u TECyvL79jIGmVYfvSm8ee1E3a 879UMLiBHNxrT08Dh7ucCoqKA ZbvOJLdN6aufnij3ufdnsnPeJ w KKZnWLb9WEt3MEViiPdbYlIiK IH4EbO4NIL4lWEfeQ1xfHptvn ucmG5iXxf+G0J6A9ItAufibJH + SL62MIAoZJ76qSIdyGCzu2zqq Ig9CfFaWCYnDAU7tNgbVFcxn5 HfWFOrA69ioJLlz8H1WUDjbKo h pZXuCaGndHE8lQ5eSZvvphgmn 8gotznhZdhhs9rfkz67mW11Q4 9sIHdpZHRoPSIzMCUiIHZhbGl n kp1ygE6qVi7+ZQRoxCL3cCB9k V3sVbNwCoL1KBuiM349IvLekS QmWdjny0cer8dpjAf8AdEjSPL g iaUnmOspUSC3i8JhJe47L67rJ HdpZHRoPSIyMCUiIHZhbGlnbj 6lpE7tMn5+VO5ld2musf08lS7 8 dHI+VYQxDOO3wQzrXRhkAQJfc O4aSAykElH0DDEfJxFtsA33kN QnNSmjNy8emYbxkUwpLN6aPDD p cmtrd197DoTfn6jmZYVuhPZxA DkkSDH3C02xl3Q1CXPvBRFrMQ W7hTY1kB0xhRltpjroqNPjlEt g daBiuIqnEHzkCFjjF269YITsn KhcSvXfnHEvF5arjvMYBW0pWv wvdGQ+LWWeGHO7sBnmTBhmEPQ k rY7iTJNbN0q3SoLpRfX3GKrlI 3UartP0CUDzoQPsXBWonGQGiJ 7gkddiy8wvgzalElAgKWHpKVh 0 EVm6WCPddSovNvCmVAA2LyL3H TG8tODwtB8hmHlqdovfpN6fHg c+RklOOjwvdGQ+SLXiQKW7dNl l YBioFDDdvP8uNULpK7g9GwQoM lG1LRupO9GwzxS1PYWhyLEuJA HjzSVUrE6mghlsq1qbyxhwWpS w TDOoUMk8THh2DZNcxZpfDpStB RV9SeA4VWL9gFXagK1zjRlefd hlkE8yBut+TVJOOjwvdGQ+PHR k JCG9aFovIOakSOTeeG9oALSzS 6n2ItOlWmN9DElbF7HtcdE3JB RloBBdGUYwbJECwP5gswczz5y v kjrwRqPiACLkYDk7AIg6WJUtm KsoGeVcPVO5XqL2WKR5dSUzqF 7saNztvbrghH8nFvz+QWL3LGV 6 [id number]+P HRhYmxlIHdpZHRoPScxMDAlJy UsmXugDL9kCv3dPKXdZOXvvLa h cHN (more content not included)... Normal [facility] T3 Free LCon 08-07-2023 Triiodothyronine,Fr ee,Serum LC 3.5 pg/mL Invalid Interpretation Code 2.0-4.4 [facility] Comment on above: Result Comment: Perf ormed At: [facility] [id number] Yumiko Sheppard PhD Ph:[phone] Performed By: #### 1 [id number] #### [facility] (DEFAULT) [address] [place] [address] T3 Total LCon 08-07-2023 Triiodothyronine (T3) LC 159 ng/dL Invalid Interpretation Code 71-180 [facility] Comment on above: Result Comment: Perf ormed At: [facility] [id number] Yumiko Sheppard PhD Ph:[phone] Performed By: #### 1 [id number] #### [facility] (DEFAULT) [address] [place] [id number] Free T4on 08-06-2023 Free T4 [Mass/Vol] 0.55 ng/dL Low 0.61-1.12 [facility] Comment on above: Performed By: #### 1 [id number] #### [facility] (DEFAULT) [address] [place] [address] Provider Orderson 08-06-2023 Provider Orders [id number] Normal [facility] Coding Summaryon 05-06-2023 [facility] RvycwzjhXKl4zWx+PGhlYWQ+P X7FQANcP94kgURpcU5cT0EDRK lOSywgQVBQTElOSyIgbmFtZT1 kaXNjZXJu IC8+UX4jQBHfUxfyaUIgh0I7t XE3A60jes6cWTkxkNT5DLKhRp Ltcizlq3jdpJw5YWffMdliVlX t ZIDnnB67LRT3qM83Kd05wWBmk HEns4yruEw4MkCiTKHyDQJ2oB ciKBtam8CyNNMhS45dtKSpx3U 6 WIWpeXhesGGmVvVvgKP1lT4oQ Icjssxmu8gsovipFxx2do94gG Bur1R9gLM9A0BrxbK2BLYelIW g RlqqkOXZdK6ogtdmc7oukateW vVbHYDuCUo4DMc0SHBbrBgiPv SsCO46YKG3VLLwflPjN0ToVCF s aKufHoI7l1H2Zg1AD5AWNgajW 1VNTUFSWTwvdGQ+NN85ae65M1 GnKrdsHpl6AUVbTNN1oEO8wQ2 n PHKdZDqdz5A7xCU4X4BqkyAiy c3co5avHSBoUMsuX90ugQNij7 B3SFYgdCK8UGPzmYpuTiPpjO1 3 Oyc+WHPfrJvbp5PmLbwwv3rhp 3yxyPh4DgamMRAsjdFunVhuBW M1r7FvJr7jXARczOL6mGJ8dO6 i KxCnBsD7YKneR578RmAmtBFmX wmrL36tJ4NfgOK+NUNdJfl0SF LnwKbxDR0sX1XtIMEeigderCJ m lOmeQL5qITVeqidaOJNzjA1lD QClG8n0VgSrYuL8BIldL7PpCA WofhuuVy25sS2lGyUfTxE3HCw u X1TcvqG7AXQmhBVfGCbhSWA6E 83gn2X2DWQtFLIvAIQ3uKC2yB 1hbGlnbjogbGVmdDsgdmVydGl j WZuiRLiqF711ISRxoCosOzEbD GluZyBEYXRlOiAgMDgvMTYvMj AyMzwvdGQ+OLZfRSW6vLqrXHH n fIZoGRdwUa4tfDtcuWnqYR0vA WFrgvzyTUExbU8jYKIhpDBkdL yvES4sVEYpphcwq554RnJbCMV 0 BCUunUIsJ2ZcyB4rRoQhOWIxC DXeG3BmmVIeFWwdH938IYgdVl I4SMGxmnYkO3GdWAHxmAygOeQ 0 d5F0Zy7Hi0AkckxvF2JnyIIyM zCwZvgrSZp3A4PhItjhxRH+PC 47CCWxQZ78TPb8XHG9nFcgYGt i GKClF8NliU1xMuVmGDYlLGSiX yc+PHRhYmxlIHdpZHRoPScxMD XgPuAghXprRZ7rIs2pLXZeAKG v bJacaTFlSpVar1vxTXBwOOxkH J6uzXugB9SzcAF6MDFhb1w0Qh 32R81iX3OtaOO+TZZclUK8gLD 0 tO7eQoMaPyI1RNdkT696LiCbv GDqXnkox7ibv0ptiCj4OrG8YV VnbyYydAipKYI1e1CfHs85R30 s IHdpZHRoPSIxNSUiIHZhbGlnb y0hiL2cPy2+QZRphNJ3aMS0yD 0hXgCyJbN3VNecC323SkTahSC v Oppny3gdm4dpiCw2KmNaIBEvf aEagXksORO3u9RdYx78O7KddW qla6PkEqf2mu62mWCxc9D9fXL 9 G1LnGGGsjcjbbIBrbLpzJP5iH RGsyuuvMMExwD4xRQFuL1e5Bh SuEbG2TBenS9ZqujQ3JBOhrIO g RBUhcCWUsL5ecklbx6zftodoS nEqVEHvQKz6CMv2QCMapPrtOy DkQXK6CoL1IDT0dACiiN2zfMu n svcnxT4nIwk+HZW4cMIpeNDWQ G0zIecpcWV+MLGaXTS7kLfmZS mbWMWolF7qVWAfS0y3JdOzHaB 1 EPhdJ7OtpjW0IWCadPKrRZBgr BAVxH2jwnclx7hrpsyfLdGfZE KuPGb5NQt9YCQkaYjhHuWzYIG 0 CwI0CLI9hSTbpI6qgDmiedlmq G9wOyc+FzbayHfzOKL0PTu3K4 WxMlx2XGJlbPjwDE9unZGsCSv u Am6vrZdpkEwsFI2gXSBmecpqn 691ViPxw6gtKHBesHGcUIxjAA T6W77qw8B5CDDvOJQmBDO2jSO 4 lJ7dsDudpeftrFKmvNiieoZey KedUKkgOOrrB153GUIpxUsbAa LcJZy0R9VvVze4WFXcgZzwPF9 n rPDvAFuxTu0ntZxijYclZN3aG YYnnamdw961TtUpc1fnABJivR FuZLljUXL5Y08xo5Y1IPRhJAZ w KBE1kJV3eP2ehFkvemshcHMlq NxlliZtmItvVSqiGKqpK695BH ZunDzzYrOrfPf7O1YjSuj8HQV z vYksHN4shBHbKBvhQk5smBmao NnbWM1dSTMktkjyr270TvWsz6 gkBMRqnALtZWqhAYY8N92lq1K 6 ZOElFJXjKEZ2iSN1tD0nkTttf jogbGVmdDsgdmVydGljYWwtYW wjA993RZRosVowTvBxfMqlsyX g UTjzEUy0V3CzPacvsNE+PC90Y UHnOA77lMSgwORoy5xcoUm2Mp UxUEUdEKI4uKngTXfim3DdZOU t N27txIJtl4H2YRIdtUfnlZTyB pLvvDF1mK0aATgfqougj5ptbq evMlioz1vycg89sQ97G48kGZe p FTGvVANlQDCjZKZzrOkpzq6vh G9wIi8+FXGrvXV4oTE2jA5hCI OuJpX5WZdaY926LtRuhOPmFcu j d0iif1ehtRp6PbM5PZVajpPjn VrrCMM1r6GwMr64T11hNFqcGG ZpXSQsVLGxGAGevOjqfv4rgM8 w Ii8+IHVuqOX2sWK7mN1hEuOuK hM2PNqdG434KcFgdAFkPstaT9 7zU0KcdMP+XTIdErj2XRTkpDz s PX6kjAClGUilSu2iZYT7PjSiV jHlBJrkK1RrKVEudgfcqdhamJ I7DUZoWTOqqG64Fa2acNztKNV w vCAFhG5idbioy7czfwdkToNsA GBlNAy6BSn0CAPymOrpFsRoSY L2QiE8SWT1jJOcmW4rlPaxchp g nQ3kL8YoHGYrwgiyRz19eC8iH wCzPaS7GGmxWdb+RnULAw8nRk SNQXPtALwZU5dMSyDJRY48EC2 8 aGLuc9J6oWK4B9VaZFZmifwht ppdrBS2MCMcCETciD74zKZuFW dkWo3hf5G9u023PCTdBLPfxA5 7 Sy3keLgyQVCzoXJXqI0rzdtrk 4fbxabfYnErKPQaXJg6ZYp5OK JufEltLwBiQAZ0JdE6KJT2dUZ h xN8leEyszejhxK8eEok+MTAvM CRdUCf3WvidnZZ+XVTbOPW6hI jbCJmhLZSbbS6oDWTyF6h8KbV w HwR1QAapN8DvHYAuvqmmLn26o A9dYmIjYhW3UDloK9XysyH8WI TcvBNrPDisBCN1K03uj4H4XOG w BKWhQFY6vSW5eA5bsUurugixw GVmdDsgdmVydGljYWwtYWxpZ2 93TOHowKteDjQ7PTkxTHEhEM8 0 NT92tCOtx6K8xUF6V4SjEIQsz wutvlploEA5DHVvPJHwxO51iR IjQAtmIp4in7S5m495KVYnAXG w mP73Mp1uqNxiVGStzSGYfU6ti zlny6jxksaqSgXrCDHzUPi2KR s6HDUcnOwvOzQeORX7GbG8OSQ 0 tAWrgN2dgVwzpnyqxF6xEnp+R lCRKMtRRO93AG96dWYso0O8hR Y3F1IbWENgvvbmffkftEU0XYP u SGRjqN19qLDbPBfzDu8bf4F0v 607NSDjKSTygU19Oe0eqOxfMA KzwWZGmN5sdoovp4mavqioDbF w QCQvACs6AOh4XBZqqFeuTgYrC WH2ZxS5UNS1iGPpoC3aqIxkaf ocsH4kFux+I3T8Q3WpDlunpBC + NQ84YWFmBM78mXNtaKIfw2sqo Au8BmHtUPLcJTL5tTytIDzbi8 MoGUWoC16gsGYze7K2PODagMp h dCLlWnRdsGT8fE5cNXfgkzgnd 7aamuapDitpi2intc19dK65T4 9sIHdpZHRoPSIzMCUiIHZhbGl n kp3zxJ3ePd5+PEAbmFJ0iXZ8d O9qOtBiFyG0QCjpD634XcTynE QaFdggo0noi1artKd3KnRuIRV g zpJwkGnmIPV8r1OlIr95E01vL HdpZHRoPSIyMCUiIHZhbGlnbj 5klI7iMg6+HI5ay9mnxm62oL9 8 dHI+LDEmGWE1yDqzVVpfHIWmq G1wXKqiWwF2ZCCkOyRmuS12xK GyIQsbYn7kmVapaLwsMO6eJPP p hmjdu770ViJbt5gjHWHywIOqX ObfLUN0Z55oo4N5AGAqPAPeEQ P9aFZ3nP6bjOvlwpwsaTTenBf g htAwpKnzJAkzNPxqO754KGXns OdjLqYinNKwR3uwrqFFFQ2tNb wvdGQ+VXUmQFQ9jUrcEZmsAOD k iI5aODQiT8f1CkOjYaM6SXvxJ 2DoceW4KBNujJXaGEAaxVKMkQ 8yheley5xuyugeTwBlYWDkCXj 0 CSd3ICKijIljCtCrYSD1NoH8Y QI6iDCwbM6llIkullhewE0pYc c+RklOOjwvdGQ+EPPaYUD1jTm l JEatHSMwhK9pOFIwR6v0YaWyW kM0RCybR6IufnC0EREwyNXtOP SmkFLHyC9klpjwf7eatfrmHaO w FJGuOIp8DKe2CKBckJenKiLzE PI0YfN5PPO1hJNsmO8yiExyhv pidJ6lDak+TVJOOjwvdGQ+PHR k NXN2mPsrNZxeVKCrnW8kTFZvL 9x2StPyUvS5RXydX2BzbiD3UI AvxXCxTFCkgJJUyX0xpyorm6m v hjqySzLsKQShIDj1KKm8XLUyf PxsGyPqRMC0MeR1DJB4eOTnoO 1rbQtmaisuiF9uAzn+JWA2PXS 6 ZW72OG34Y3InEsalfAWeuPQ+P HRhYmxlIHdpZHRoPScxMDAlJy IvxBkjTV7uBe6kLHDlQCJvhDk h cHN (more content not included)... Normal [facility] T3 Total LCon 05-06-2023 Triiodothyronine (T3) LC 141 ng/dL Invalid Interpretation Code 71-180 [facility] Comment on above: Result Comment: Perf ormed At: [facility] [address] [id number] Yumiko Sheppard PhD Ph:[phone] Performed By: #### 1 [id number] #### [facility] (DEFAULT) [address] [place] [address] Free T4on 05-05-2023 Free T4 [Mass/Vol] 0.52 ng/dL Low 0.61-1.12 [facility] Comment on above: Performed By: #### 1 [id number] #### [facility] (DEFAULT) [address] [place] [address] Provider Orderson 05-05-2023 Provider Orders [id number] IFF Normal [facility] TSHon 05-05-2023 TSH Qn 0.06 m[IU]/L Low 0.45-5.33 [facility] Comment on above: Performed By: #### 1 [id number] #### [facility] (DEFAULT) [address] [place] [address] Coding Summaryon 04-18-2023 Coding Summary [employer] 64 DszaqbamWKt4pKr+PGhlYWQ+P D9OCSXfW72mqTYzmW5mK1FKAH lOSywgQVBQTElOSyIgbmFtZT1 kaXNjZXJu IC8+PT4zGMKhDqaxwXVhh0Y8u CQ8T44llh0nULhmsFW3XKSbOn Dyuuyek0axrKh3QIlrZkwoPiD t RDPvwU62EQH6zD91Xk71cJLju OMcp9gntZb6IpXyUNPhUUF1kL guIOdnb9XpALFgF67xsKNvs3P 6 IWBeoCdxxLZkUjXkcNK6aG1qR Tevpgcgf6ppseesEdz2ff48nJ Fsl7R0xUG8J9BbxrA5EIYnyGA g ZgrtyYZQtX6civstv4dzfyrkP tZcCFZlJFg4DVv5RIYluSqfVa LxWG63MDF0TCIcctUeY2SoYXE s vCwwRuY3c3X4Ik2DZ3YGVsfqL 1VNTUFSWTwvdGQ+AJ49st72S6 RoGrtyTif4DWUeXRA5kMR3lE5 n LEGcYHkxb1X6qCU6X4EvkhOgp c6my4roKDNqWNdkO54zgGZzx1 S7EITchRG1LYAagKonTaPhzO0 3 Oyc+RLNclNocg9ImWtmek4mzv 1nvbCg7MqgfNJUinnIncPksYK F5o6MrKn3dLDElsJW7iPS8uR5 i JoKfJaM9NEqyM319TaZejWRrL mazT72mD7GwkKM+VICsVmi9IR DaeDrbEO3cT3MoPANgzxxidXY m mWclYD7rBSQqbvitWAUulI3mH VOgD5h2SbMbFfW5BZenM5SbXT OquowpSf21jS7nIsOgFuG4QFu u Q7JyeyF7XGCmxUZeKXqeWEJ4L 92kc4G9IJUyXQMjYDE4cLF2dG 1hbGlnbjogbGVmdDsgdmVydGl j KLzjVGfjR508ECKkyNhcVkOnT GluZyBEYXRlOiAgMDcvMjgvMj AyMzwvdGQ+MVPxRRH2vSnvSLU n vJAgHFxiFc9kjFjjuPgjAD5wO ISxniyyIJPcwD1fQFThzCDneP mpQC9qXAPqdgmrj357KgVyNTJ 0 YEHyzJHcO9DznT1pAaJtUNLdG SSeN1FiqFWmINrjW976HOqaMp T0BIMsywWoJ7OwFOAjiLtpAbC 0 v2F2Vm4Gh9BxvjipJ7LfhRMyU xHaYmdsBDt4K3GiUrcyiAL+PC 01MLHtUY51OQi5BRL2lLovAUy i OJQuL7YtsH8kJgEtCQKnZJHaH yc+PHRhYmxlIHdpZHRoPScxMD DqQqOukBzjRQ6iOh0lALPcAPK v yLlqwRZsQkEtb0riCAAuEHkoG W7ywFskC7OheOX8HHTpu6a0Az 96U43eG8ZawTP+MRTymGA1oDL 0 aW1zNwEqRfH5DKscO993BsSkm RBpJnxnc7dqo7vubEi3KuU7ZD RoquEtsIfzWEG1m2BhYm80A17 s IHdpZHRoPSIxNSUiIHZhbGlnb w2mcW0vDk9+JFVylAD6aML2oM 7eMnRwDdY5PQaoC652FpJtoCB v Nyvmi9szk6nwcDi1YpNsGDCmi hWuoYjbFCE1v5SpAe99X8AwcT zes1FeAjp0wt21aAJiw0M3bSS 9 K3ZiZLMlfflabEIlpPprOH4lR FJbyhhmFZTuoL4cQUAsD0y4Ce HtOlB8QFpgM8LeqpK9ZENiiTK g DGVccRSWaH2trvrhr0othybcO fPtFRVsJVe8ACb5YQAdtZssOb TiSLR5KxF5KCP1wTOrsB7kwMx n thaonD2jCnd+XRB7xSMxmZXOK O0iJnzavEP+IPWgSMC9oWlbEX ojANQjsM4aPBQtL2j4BqFfRwX 1 HVnnT1MzjjK1XKOmnWFtWPWxp ZXObP0ldrobw0lgyndfCrTuTW PdIZg3YOr8BZGpnSaqSlUqDLH 0 ViD7WTA2hGUevL9gtPjailrlp G9wOyc+PmzkeMzrCNX3QRh3O8 LwTqx1YHVkhNoxBA9seZChWFv u Xc5gvPbxfPlyWT0lQUGtlvdzn 886ItHab5inPELeaWFlYHtrQZ B6F11fw4R9VVPsDEBhSDF0gRK 4 aA0dnAwmeiplrHGvjUyomsWfz LraBNggOEsrQ493PSZzdYulAl JyNWi8E7FjJcq0JDTazBbhXC6 n kDPaVVseUh2vpJpzwAicEQ2zF PAeqgaif865VmAhn8bpLRUjfE QwFXatODR5G18by0W9DDMuUAH w MYN7dIY1yL3qjNltzjecfYZhz HrqcoXgkCxlGFybZFjgG080OM YfbWpiPeImyNp4S1NlDns4CJF z cQghVH1syHKgUEhwKo0glIalb BlbBC3hPBGkllzve738LrJtx9 qqZRLteAAdDIbiOVL9F84rx8F 6 VIBgCRKbACL8gFK4zW8baMynm jogbGVmdDsgdmVydGljYWwtYW mlC173EVSxfVfyNjHbmQqxykG g OXziUEl1S9WuBwojcWI+PC90Y BIfWW95cWOozJIkj3gllPk1Pw ZuBKIjVIU1rYgpFYyvc6WtJDA t X41buRCfu1I7EAXfeSarpYBwR vZibNQ1fZ8mZUmogqjig2egsc baVgefh7jlhu19vQ36R06sXAm p PNPcRELtELLzYAQmiNgqdh6al G9wIi8+NGKbnET3mND0iD6cZY MtOqH4TWarT746MfUzyHVqNdw j y5knd4tavYu8LzW9PFAxnvJfr HslRVB2o9RxJt92Y70gHZckLN DwPMHwMGUfMBIrzVglzr1ppU5 w Ii8+HZEvgLB5rII5zC0dLrNmN eP5SDpyW710JdEtrQXgPmsrM2 4yK4PapWA+TKXcTps4JMXacTu s GI9poOTxWRgiBs0dBUA9JwNtH nAdLJavY1QyFBXwpgusccnwoM D9NXGmARPwnL18Ww3vsGpuDSO w zJOVzG2vbzzix8rocxplRqAoP MHwQGo2BRf1HNBfxEdbEiOkMJ W4UzV5XJI8uOJsjP3jhEejwhh g zQ7gZ4JeSWVmjvwjWt29xL3lX tSgJvO8LMhzZta+TlLYEr6oAd NTVXWeZGkXP6iVGnPLPW46NY5 8 uVMvb9R5gGO7V5RyWXHemwshc drfaTK0IZQjIWHnjQ27xBTgKF boJa8qv8A9t036UUErYAQfqM6 7 Kd6qiVokGUMifUAFgJ0cnyizt 6rcsooeFqGxFUJsOAa5LXo8NZ JzeWgzIaRlXNQ2GeE1QPF5zBX h aI5wtXzcfctldX3qCrs+MTAvM PHwPRr2TudouUZ+KMZbUNO5mE ajGWlqYCYyqU8rCFQpI1g8TgA w BgU4KKqxN4OyPHEkdisrDs50k Y8eJnZoXmW8BBfxE0MksuH5HP EsbQSrQEldAVQ3F42nm6Z6ATH w OSSjYFB5gDN4fY6xwXsvmxkmv GVmdDsgdmVydGljYWwtYWxpZ2 71JTIczWduGbU5KQrkONXeRI7 0 OS59iMDtr4N9oYZ0S9HjPDRpa wzxkjffhJI7CNPpHIJhcD89aS XhCJmaUp2hk4V9t181PQYuHSO w lR30Dl2ugGcjEMNjlHYDmB3ow ywvf5pxayhfHtYqTGLdAQo9KT u0DSOraHweGrGyNJO4YyQ4ITB 0 iVTlrN8xvNgzvxtteQ4qWlq+R vVFJNeTQQ06XD48gVCjn5M9dA Q7Z9AuVXWnzlifheuihBZ8HJZ u FLKiaS81cVSsMDfcEz4mm0Q6n 192MLLpHOMdkE67Xb6kjCpyXB AtyDLTaG3jgsuxo2mosgjqUaE w JPCwJEs5UUx6AAPylJezYwJlX QF9KsQ7DYE9mFDyrH7jbTibgv qrqJ9pHro+D8R3C6TwWxvqbKZ + ZB82JQUvUR76lVPqxRGoi9cjv Ms8LfYjKZJjRGU3hUwlGKcmv8 ZeBEEgH24ubBZqe2Y4ELOibGh h kGUuDmSirRG7eE0sYWzwsbsjp 8mgosujDleqh6chho80oU65P2 9sIHdpZHRoPSIzMCUiIHZhbGl n yo0btG5aPg2+BMKszLS3tYQ0o G5lExDxUiA2XMphU384BbVqbI LaJinou9spm7tkpCc2YaCbMUN g tzInfLqsYSO5c9RtZq76L10iG HdpZHRoPSIyMCUiIHZhbGlnbj 2daG2dRq0+CK8dh1klvs67dS7 8 dHI+FECmAVG9mFjkROlwOXViw N2vTZadIyA1UMQqSzHvrA45xH PqHDbiOd6hvIunrCzaWI9qDBC p ialla502XvEku2grBRFqyNSjA GclKDT5Y20pu0F7GDAoJTZoPO T8mUC4kO6psSunhxjfwPHnvBi g kzVphUazEBmvDPlfA922CROld RfbCoDomYUjM3pqmrOZUT3bCn wvdGQ+OEIdISK8mQlyAHohHYY k uC2mDTMoJ6v0QeRyBmD6IDgyP 6NynlN4SVRlyGLsEJKmmGCZhZ 1zthmnr2uidzjzOtAwREUkBBe 0 TJp5PSXlfTkfUxCpMKK1LmI9K YH2yWGtvT3zpZusejgtjQ1tTv c+RklOOjwvdGQ+HLPkXVF2fZj l PJskWWDpaP6gIZPoE1r4HkSgS lE0PKftS4HcpwY4OKAkjJOmOO YlsZVOpO1nwmvav4izejbqNzO w WYWyOBr7WUu2SLVhcCjiVbTvU IT0MyK7MPA7hYGoaO4rxAxtng vroC5nXtv+TVJOOjwvdGQ+PHR k YIU7nDwwHRyyRUXboL2qYLNdD 2r3HpQbYmC2CJgzH2FvafA2ZZ TlrLOzDKFklQJBhT5nsxrcz2g v reftViCgFHXrOCz6VBj9NFVix QhbOdOwWDT6HmI8UNC7mZUpbU 1gpPiikyhdlN3cPjk+SRA1GCK 6 ML73AY25R3GbCujefOSprHI+P HRhYmxlIHdpZHRoPScxMDAlJy WryIlvPR8dXh6qISDyDJOrzSs h cHN (more content not included)... [facility] T3 Free LCon 07-26-2023 Triiodothyronine,Fr ee,Serum LC 4.4 pg/mL Invalid Interpretation Code 2.0-4.4 [facility] Comment on above: Result Comment: Perf ormed At: [facility] [address] [id number] Yumiko Sheppard PhD Ph:[phone] Performed By: #### 1 [id number] #### [facility] (DEFAULT) [address] [place] [address] Free T4on 04-14-2023 Free T4 [Mass/Vol] 0.65 ng/dL Normal 0.61-1.12 [facility] Comment on above: Performed By: #### 1 [id number] #### [facility] (DEFAULT) [address] [place] [address] Provider Orderson 04-14-2023 Provider Orders [id number] Normal [facility] TSHon 04-14-2023 TSH Qn 0.02 m[IU]/L Low 0.45-5.33 [facility] Comment on above: Performed By: #### 1 [id number] #### [facility] (DEFAULT) [address] [place] [address] [place] Thyroidon 01-26-2023 US Thyroid HISTORY: History [...] thyroid nodules on ultrasound proposed by the [employer] (ACR) Report reported and signed by Kin Graves on 01/26/2023 1140 Normal [facility] Layout Worker Reverse T3 LCon 01-17-2023 Reverse T3 LC 15.7 ng/dL Invalid Interpretation Code 9.2-24.1 [facility] Comment on above: Result Comment: This test was developed and its performance characteristics determined by [facility]. It has not been cleared or approved by the Food and Drug Administration. Performed At: [facility] [id number] Michelet Barnes MD Ph:[phone] Performed By: #### 1 [id number] #### [facility] (DEFAULT) [address] [place] [address] Coding Summaryon 01-13-2023 Coding Summary HTMLBase 64 XoelsvrsEWy2lUi+PGhlYWQ+P G4IUBDeF31alWAxcY0FK9vPJO 9UIUHKRAITQJ5WPO2naGD5OEn tJ5DnyhUq YjjwuKElLI64ESb4YKB4cUmlE LgqzV7wjTZwS9x3BbFdCF40qN 16MOpxEPZoXmO9IjPzktrxvUN y A3suHzGliEVnHeq+PHRhYmxlI HdpZHRoPScxMDAlJyBzdHlsZT 2bWb9mDZAzEYLznSflrAOsYtL j w0mkVGHlIWxtKC1hgPnlA6Olg NW7KYMwg4m7Rp45aXZ+PHRkIH R9aFznUQqel183RvJmn7qcLZJ 3 xPCzGZzgIWS3Z37cb0I4YJWlJ RVpEFA5qZO5bV2shKlrlrucW7 TqpKAjXfO1PFE1zANlqV2tzZn n opkdeU0kYcu+T01GJI7WGUIRC J3PJdk4N6KgFbaqaQF+PC90YW EsUU14pHResTDbp8nyjDp8KaA w TIZrRJH5yCktDDevs7MnZNSxW 24kiUYlm0U1EBBvrAyxbSQqYv HfePH0iT0nELptdwkua5oksdw n Uewud5nixe74oC57Y26aFEpjL AFyDIW4OXRbQXHpsSzqzj6xpP 9wIi8+HNkyw5zxk6mhtCh8IhE w YZFufqVzvBueZDQ4m9QeLl76M 6SqjGvzy3QbByj4es04hQJqo3 P5lPX0YMyhSEPnvY7tHHppVuF 6 RZGuLvVmoB15lEQyRIehKd4gi SldlLssUG5gGZQjvtzoOOEmzQ 2wSFDqrDOunDgiVS8tHTIjzvr m h908KcHoYCT8RQGheVPqR9Zeu F5oVyFzJWJuXQIsY0XxzUMyGE kiP445IKqkSuC3CINpoaIxI9U s RJXiyMgtAiT2b4X2Rq4Cp2Obk pneIAW9WTxwMEM3CmO8IdYlWf P9D6OwIvk5LVJptUrrLF7xT8E h ZVZpsghjcxavzAA9RWReOTYfm A96qVQwBAblAt6ip6E4v400DJ SzNHXaxA63Jn2djFpdULYmrJR U mD2ebqkgk0apnxkoKmOwGDNlG Nq6ZDr9BPOixEngThHgLDV0Sz X0OSK4fONgsL3cpJpnjgelnB7 w Oyc+L93mtD1aSGM4UND1gzrbA IRxwtHrBD20XW09Z1WfOxzhnM FibGU+WKYqekGmmBifCE9gYgP j y0nnm0RvPThcM4OuYOTpNFgtH bo9MYDhHIQ8uWJ6jY6eVPRzCI svj1F5oUM1S9UsjhDtrz0fh0y s GIBgRGpzZ38flXTsq8D6FROiw UO4MRZrmUjyMkIqcR40Odr+PG MscRevu7VeDlpkg0dnr9jvcXo 9 ZiJgRHAlkgIhoTimOMF5c3JdJ e24A55eNDmcFZQxNXIqJCBjUE HfzDjgac1raV3rOk5+PGNvbCB 3 oJH3uJ1sIOEsWsT2DRzwT474I uLnqOIaLeljg9qlf2btjIr8Ll EjBSJupdRuvCjcKTZ6c5FeSo0 8 K32rLAvbMWHeEAZsAFWzMDGsf Vrams3veM1bXm0+XE4ea8olqm 25iB29yHL+TBOiUYV6mCdfYVy w VJTsfV9sEYspAlD0ECZaSdMrr H72wXEgMXnvRz3dqSlcnRupJJ 9kDKFjzgfwv956NjVhx5tkEEO w bDWcHIxeZHI3X86bt5A5YOCdK PAdGMC6pQM6rV9xqWbggxyekP JvwPfuwwHtsYahCJltVHiuG13 6 IHRvcDsnPlBhdGllbnQgTmFtZ Hz4P5FuEvz9SIIhhCdiPB6ozS XvWQnbQy4zrYkbzAyzSY9cBFF p uniks442KrKqb4njXPLhxCYgP YgmHNV6S72vd1H3NWDjFEKeES O5qFZ8iT6ifKzabbmdpAEycVx g qpEgcAxmFLpkOEvkA365TKFbt DniAlGgjpTbVMOiaIJ7SC27US 25qBAtg7V8uOP9A1FkHUXzjxm t bzxxbPV6IQSuSHTeeE30Ld3vk ZiqCy5zULFyUQG2WPUrwCBqU4 OhtH2lVjNnAYIxFUTnD0BnrBY t EPahU817NJcdPhH7AUWzapCwL 5AfVVLtwJqbMbX7i8T8Fy9AL1 S0OP96YQ84sULxg5V3qUV8T6D h FZVmjjlshwlpwDP7VKXuVDGns M43Ok0ixMoxNk0xYNHeTST1FL ExeEPiV4AfsW5jUdFuHZRqGXR w N2YlmFBpFEurX665VCnsHfW2R BCwcfNqO6AlTLLsaZlyLmS3w7 N4Uy3QAZj2NF83KC88pBRdi8L 5 nDK9X9IkISTirgvopkzckEF4G XYjOGKqvW21Uk7afVarGl4lEO PhYPI5WHIapRMxJ1TvzT0mXhQ j PTDrASTfO8NabOCeSNfoO784A MjwDvD2TQMbhoSjI8CjUFYosW wnVgN8e9U8Lm2CORDaHU54VHK 5 zYJ3PW88LX88T7ZbAwrtsDYul +PHRhYmxlIHdpZHRoPScxMD BuTxFkeFwpCE7xIl2gZPNyYDN v vNyqkIBdOjMjb5qkOIPiNGnhK G8sdHjlY8DutDO1ANQfg0v8At 90L60yW5GuwSW+YXXepED5gZG 0 wL4oKzWnRvN5NDolK931DxEcr BVaUueyf9hfh5azkVq2ZrA5JW UtweSfsFmlKMC8t9KtDg78S00 s IHdpZHRoPSIxNSUiIHZhbGlnb n2nwO1rHe1+KYDwtMH3nOP9bS 2hEwYbAjV6IZnwN547QiRmvBP v Mfokf2fvc3fkxIc6DjHyNCPnk eDynGadHXI7o2OlFk23H8IwdS vwd4ObNwn1yj89sLSfi2T7tVR 9 W2EoAZYcpgjzhZRcyHroDY7gK QCdbeijWSJadW9bHVIaI4q3Id CvJuR6ICqwZ6EeirY3IWNyiIM g CMdhDLQ7J02mj8Q0OOWmEFBoT ZA4zFC6kI7atAchrbtkkNOokI yhqtOphArbRYokSCmqZ380PHE v kHbgSCApoZ9sWLBtjMYlpYgcN X2vSIZtwdxyNbHHSzVHCYtJDb WHMWSBCLNNHA5bAMhrzTF+PHR k DQX9pFlxJOjqXEZqiH1cLIKiL 4m4HvZbZnO6PUkwN6JbXUKxew ugDw19bB2jGxVlBuY3BBiwX3L v wkZ0MGZvoMCcQXiqXVZ7C22ly 0I6OZDyKGYuPNP7vEK9sP9jhL lnbjogbGVmdDsgdmVydGljYWw t LXbyJ158KSDteNhbNvTwLxJ4P iO0Yxv2H8ChIty7VVBjfRnvXQ 9fvXAgNXioTc0faNonfYarUX7 w MVUjhqvtGZPxcR2iCAQldPBuv DaiCT9rAAPairkhz200FxCyOL C1CAHlyQJtC6LzpB9gSpAfNNH w AVSsG1GfjEBkWUadD951RUjtR nX2PFPrfyXaU1VmFMGalGepGu G5p3O8Sq00STLTSJYurkhucIQ + QQYcNUP6kOboHHqrHWZgcI1fV XTfL3i7MmSpZkV5PUqoD2HgOH PflgiyKn99kG7mVrToWtO6TZg u T9BrrxK3JYTlxVWvBEkaMRD9Z 69nl0S1TLItVUEiAPM0wGR8iK 1hbGlnbjogbGVmdDsgdmVydGl j WMmsQIypZ148SENbrQczFfAES UFMRTwvdGQ+GKJmKNP3aXwbRO gtJGCcgW5dGKCbL4s6BsMpQvR 1 UXauN8DbFBMjbsbmNk04mC7iV iFsPyF4BRbpD3EjmuN4VWVhwP JmMKvtXMD1W55ck5Z8NOIlEWJ w BJZ0dDP5pU2rrAevwpizbHYiy QszvnNvwNxtFWsiMXohO738AD GehVozCv9PBM73RG12C2HyZhx v dGFibGU+PHRhYmxlIHdpZHRoP PvkIBIfMvSlxWznIL4zJd1fZT BtTGLnfHjatNTjUkMrx0uuSVJ z HZyzMB0sqIczN5YqvDN1IXTrz 0u7Pm45N30fT8TjnID+PGNvbC M5mGC4eC1xTsJbFnN8FYcmZ02 9 OuChlLFfDxgry8bgb2kogSs0X yShJRYohhLruNlpYTV7g6LeBv 10F68aVVsyFTZbDANwPEMlHAE h mVmoqo8nzQ6rCv6+ROVuuAE4f AP1oU1cXgVoRfO5HVtoI412Mw QjsHQfTvkkF09oJ0KavIN+PHR y Med2BHTlxTutGV1ueUZxAVbiE h7iCUN2LkQjYgPlHEnfM3UbXB VsxxfwjwjpaGP6TYEfGHTfaN0 7 Pf2alQtfCw2uMUKiWCV4DJGaj ALaA1PnfD6xPjLhMAWfYBYoD4 HwbSUgLKylW544RPvvXpQ3PWI l jjUrN9BaJADlmFgvXuG4z6N2Q p9WoGvxpHSsQZ4tJjKxRWr1K8 DpQfv4OZScjZleVB6jwUIdIHd u Oq3nhPyyaYynVC6dWIFykofgh 073JvNbz8ytQTZtiDHjCYgvMJ Q0E35oc4Q0PNJyCUVfIEQ9wPQ 4 kM9grJnlsdybeLWreWkfytJwm KuyGGwySOeeY532LAZznZjaGh YSUcc2K8VmQhf8OWYodUsmGB5 n lSPqOOydYy4ihEkluJqjIS7bM BLyfbdfk702ReKlf3kzPDAbcR KnGHygICE5A81lz2Z6INSjLRS w PBM7hEE9kQ9yxArobrexxRHhe YrnggHudNubXQlaVYkxZ440CF PeuXtpHh2DGta2M8ZfVbx9JAW z dSslEM7deMLqBRwbGq4sjOzpl JpaAF9fIOXnhsbdv042ZoPxq0 pzWYPdbSWbTBxnPKA1P64nf9E 6 CIJzMZEjMMJ3pSS8aC1quGqef jogbGVmdDsgdmVydGljYWwtYW vrL685BNJqmSieYrEzgYHuUad v dGQ+GF01dy64V2LeCpxwHjc3R GFaBQD1nLV3zP2mKLVhJLxzf0 N2iVW3R1PxymUuvi8un7qwYSV z ZTo (more content not included)... Normal [facility] Provider Orderson 01-13-2023 Provider Orders [id number] FF [facility] T3 Free LCon 01-13-2023 Triiodothyronine,Fr ee,Serum LC 3.3 pg/mL Invalid Interpretation Code 2.0-4.4 [facility] Comment on above: Result Comment: Perf ormed At: [facility] [address] [place], [place] [id number] Yumiko Sheppard PhD Ph:[phone] Performed By: #### 1 [id number] #### [facility] (DEFAULT) [address] [place] [address] T3 Total LCon 01-13-2023 Triiodothyronine (T3) LC 135 ng/dL Invalid Interpretation Code 71-180 [facility] Comment on above: Result Comment: Perf ormed At: [facility] [address] [place], [place] [id number] Yumiko Sheppard PhD Ph:[phone] Performed By: #### 1 [id number] #### [facility] (DEFAULT) [address] [place] [address] Extra SSTon 01-12-2023 Tube Collected Yes Invalid Interpretation Code [facility] Comment on above: Performed By: #### 1 [id number] #### [facility] (DEFAULT) [address] [place] [address] Free T4on 01-12-2023 Free T4 [Mass/Vol] 0.75 ng/dL Normal 0.61-1.12 [facility] Hospital Comment on above: Performed By: #### 1 [id number], [id number], [id number], [id number] #### [facility] (DEFAULT) [address] [place] [address] SCREENING MAMMOGRAM W/MONSERRAT, BILATERAL*on 10-06-2022 SCREENING MAMMOGRAM [...] IS VERY IMPORTANT TO YOUR HEALTH. CURRENT [employer] GUIDELINES RECOMMENDS ANNUAL MAMMOGRAPHY BEGINNING AT AGE 40. THIS FACILITY USUALLY USES A REMINDER SYSTEM TO ENSURE ALL POSITIONS RECEIVED REMINDER NOTIFICATIONS AT THE TIME BASED ON THE RECOMMENDATIONS OF THIS EXAM. Report reported and signed by Hannah Yap on 10/08/2022 1159 Normal [facility] Layout Worker HCG ( test) IA.rapi d Ql (U)Ordered By: Kwame Noel on 08-18-2022 HCG ( test) Ql (U) Negative [facility] VC CONSULT FOLLOWUPon 2020 VC CONSULT FOLLOWUP Patient: CESAR DE LA TORRE Exam Date: 09/18/2021 : 1975 Gender:F Ordering : DR BECKY TORRES M.D. Admission #: [id number] Family : Order #: [id number] CLICK HERE TO VIEW EXAM RADIOLOGY REPORT [...] Torres MD on 09/18/2021 at 14:06 Normal [facility] VC EXT VENOUS LT LIMITEDon 1 VC EXT VENOUS LT LIMITED Patient: EB DE LA TORRE Exam Date: 09/18/2021 : 1975 Gender:F Ordering : DR BECKY TORRES M.D. Admission #: [id number] Family : Order #: [id number] CLICK HERE TO VIEW EXAM RADIOLOGY REPORT [...] Torres MD on 09/18/2021 at 14:04 Normal [facility] VC CONSULT FOLLOWUPon 2020 VC CONSULT FOLLOWUP Patient: CESAR DE LA TORRE MahiColby Exam Date: 09/10/2021 : 1975 Gender:F Ordering : DR BECKY TORRES M.D. Admission #: [id number] Family : Order #: [id number] CLICK HERE TO VIEW EXAM RADIOLOGY REPORT [...] Dick M.D. on 09/10/2021 at 12:18 Normal [facility] VC EXT VENOUS HALEY LIMITEDon 09-10-2021 VC EXT VENOUS HALEY LIMITED Patient: EB DE LA TORRE Exam Date: 09/10/2021 : 1975 Gender:F Ordering : DR BECKY TORRES M.D. Admission #: [id number] Family : Order #: [id number] CLICK HERE TO VIEW EXAM RADIOLOGY REPORT [...] Hannah Dick M.D. on 09/10/2021 at 12:15 [facility] VC INJ FOAM SCLERO W US MLTI on 09-02-2021 VC INJ FOAM SCLERO W US MLTI Patient: EB DE LA TORRE Exam Date: 09/02/2021 : 1975 Gender:F Ordering : DR BECKY TORRES M.D. Admission #: [id number] Family : Order #: [id number] CLICK HERE TO VIEW EXAM RADIOLOGY REPORT [...] Po (more content not included)... Normal [facility] VC INJ SCL KARLY MANUFACTURING RECRUITER VEINSon 1 10-20-2020 VC INJ SCL KARLY MANUFACTURING RECRUITER VEINS Patient: EB DE LA TORRE Exam Date: 08/20/2021 : 1975 Gender:F Ordering : DR BECKY TORRES M.D. Admission #: [id number] Family : Order #: [id number] CLICK HERE TO VIEW EXAM RADIOLOGY REPORT PROCEDURE: VEIN CENTER INJECTION SCLEROSING SOLUTION MULTIPLE VEINS SAME COMPARISON: VC INJ SCL KARLY MANUFACTURING RECRUITER VEINS, 08/13/2021. INDICATIONS: Pain co-occurrent and due [...] Dick M.D. on 08/20/2021 at 16:11 Normal [facility] VC INJ SCL KARLY MANUFACTURING RECRUITER VEINSon 1 10-13-2020 VC INJ SCL KARLY MANUFACTURING RECRUITER VEINS Patient: EB DE LA TORRE Exam Date: 08/13/2021 : 1975 Gender:F Ordering : DR BECKY TORRES M.D. Admission #: [id number] Family : Order #: [id number] CLICK HERE TO VIEW EXAM RADIOLOGY REPORT [...] Dick M.D. on 08/13/2021 at 13:00 Normal [facility] VC CONSULT FOLLOWUPon 2020 VC CONSULT FOLLOWUP Patient: CESAR DE LA TORRE Exam Date: 08/09/2021 : 1975 Gender:F Ordering : DR BECKY TORRES M.D. Admission #: [id number] Family : Order #: [id number] CLICK HERE TO VIEW EXAM RADIOLOGY REPORT [...] Torres MD on 08/09/2021 at 13:10 Normal [facility] VC EXT VENOUS HALEY LIMITEDon 08-09-2021 VC EXT VENOUS HALEY LIMITED Patient: EB DE LA TORRE Exam Date: 08/09/2021 : 1975 Gender:F Ordering : DR BECKY TORRES M.D. Admission #: [id number] Family : Order #: [id number] CLICK HERE TO VIEW EXAM RADIOLOGY REPORT [...] Torres MD on 08/09/2021 at 12:00 Normal [facility] VC INJ FOAM SCLERO W US MLTI on 08-02-2021 VC INJ FOAM SCLERO W US MLTI Patient: EB DE LA TORRE Exam Date: 08/02/2021 : 1975 Gender:F Ordering : DR BECKY TORRES M.D. Admission #: [id number] Family : Order #: [id number] CLICK HERE TO VIEW EXAM RADIOLOGY REPORT [...] Varithena(r) 2. Intraoperative ultrasound guidance Physician: Hannah Dikc M.D. Anesthesia: None. Indications for Procedure: 43 [...] Dick M.D. on 08/02/2021 at 15:59 Normal [facility] VC CONSULT FOLLOWUPon 2020 VC CONSULT FOLLOWUP Patient: CESAR DE LA TORRE Exam Date: 07/12/2021 : 1975 Gender:F Ordering : DR HANNAH DICK M.D. Admission #: [id number] Family : Order #: [id number] CLICK HERE TO VIEW EXAM RADIOLOGY REPORT [...] Dick M.D. on 07/12/2021 at 16:05 Normal [facility] VC EXT VENOUS LT LIMITEDon 1 VC EXT VENOUS LT LIMITED Patient: EB DE LA TORRE Exam Date: 07/12/2021 : 1975 Gender:F Ordering : DR HANNAH DICK M.D. Admission #: [id number] Family : DR BECKY TORRES M.D. Order #: [id number] CLICK HERE TO VIEW EXAM RADIOLOGY REPORT [...] Hannah Dick M.D. on 07/12/2021 at 16:02 [facility] VC INJ FOAM SCLERO W US MLTI on 07-05-2021 VC INJ FOAM SCLERO W US MLTI Patient: EB DE LA TORRE Exam Date: 07/05/2021 : 1975 Gender:F Ordering : DR BECKY TORRES M.D. Admission #: [id number] Family : Order #: [id number] CLICK HERE TO VIEW EXAM RADIOLOGY REPORT [...] Dick M.D. on 07/05/2021 at 16:49 Normal [facility] VC CONSULT FOLLOWUPon 2020 VC CONSULT FOLLOWUP Patient: CESAR DE LA TORRE Exam Date: 06/18/2021 : 1975 Gender:F Ordering : DR BECKY TORRES M.D. Admission #: [id number] Family : Order #: [id number] CLICK HERE [...] Torres MD on 06/18/2021 at 14:47 Normal [facility] VC EXT VENOUS LT LIMITEDon 0 06-18-2021 VC EXT VENOUS LT LIMITED Patient: EB DE LA TORRE Exam Date: 06/18/2021 : 1975 Gender:F Ordering : DR BECKY TORRES M.D. Admission #: [id number] Family : Order #: [id number] CLICK HERE TO VIEW EXAM RADIOLOGY REPORT [...] Torres MD on 06/18/2021 at 14:28 Normal [facility] VC ENDOVENOUS ABL 1ST V LTon 06-03-2021 VC ENDOVENOUS ABL 1ST V LT Patient: EB DE LA TORRE Exam Date: 06/03/2021 : 1975 Gender:F Ordering : DR BECKY TORRES M.D. Admission #: [id number] Family : Order #: [id number] CLICK HERE TO VIEW EXAM RADIOLOGY REPORT PROCEDURE: VEIN CENTER ENDOVENOUS ABLATION FIRST VEIN LEFT COMPARISON: None. 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 Informed written consent was obtained by sd and Kade jarrett. Time out procedure was [...] of the foot pedal and a single delivery/combination welder apprentice was created. The total number of Joules [...] Dick M.D. on 06/03/2021 at 11:54 Normal [facility] VC COMP CONSULTATIONon 05-06 VC COMP CONSULTATION Patient: BE DE LA TORRE Exam Date: 05/06/2021 : 1975 Gender:F Ordering : DR BECKY TORRES M.D. Admission #: [id number] Family : Order #: [id number] CLICK HERE TO VIEW EXAM RADIOLOGY REPORT PROCEDURE: VC VEIN CENTER CONSULTATION VEIN CENTER - OFFICE [...] arterial disease 5. CEAP: C2, EC, , CA PLAN: 1. Continued use of compression stockings [...] Hannah Dick M.D. on 05/06/2021 at 09:47 [place] [facility] VC VENOUS REFLUX HALEY LMTon 0 05-06-2021 VC VENOUS REFLUX HALEY LMT Patient: EB DE LA TORRE Exam Date: 05/06/2021 : 1975 Gender:F Ordering : DR BECKY TORRES M.D. Admission #: [id number] Family : Order #: [id number] CLICK HERE TO VIEW EXAM RADIOLOGY REPORT [...] echogenic thrombus seen Compressibility: Normal Flow: Normal Concrete Vibrator Operator: None visualized Tech Note: The left SFJ/AASV [...] Hannah Dick M.D. on 05/06/2021 at 09:11 [facility] Coding Summaryon 07-28-2019 Coding Summary CODING DATE: 019 [facility] STATUS: Home PAYOR: Commercial Insurance ADMIT [...] Romina Courtney Date Saved: 07/28/2019 03:17 pm [facility] Provider [place] 07-27-2019 Provider Orders [id number]#1.00OTGTI [facility] Release of Informationon Release of Information [id number]#1.00OTGTI [facility] T3 Free LCon 07-27-2019 Triiodothyronine,Fr ee,Serum LC 2.4 pg/mL 2.0-4.4 [facility] [place] Comment on above: Result Comment: Perf ormed At: [facility] [address] [id number] Yumiko Sheppard PhD Ph:[phone] Performed By: #### 2 [id number], [id number], [id number] ####[facility] (DEFAULT)[address] [place] [address] Free T4on 07-26-2019 Free T4 [Mass/Vol] 0.86 ng/dL Normal 0.61-1.12 [facility] Comment on above: Result Comment: Spec imens that contain high levels of Biotin may cause false high results Performed By: #### 2 [id number], [id number], [id number] ####[facility] (DEFAULT)[address] [place] [address] TSHon 07-26-2019 TSH Qn 2.03 mcIU/mL Normal 0.45-5.33 [facility] [place] Comment on above: Result Comment: Gene ral Population (males and non- females, aged 21-88) 0.45 - 5.33 Females, 1st Trimester 0.05 - 3.70 Females, 2nd Trimester 0.31 - 4.35 Females, 3rd Trimester 0.41 - 5.18 Performed By: #### 2 [id number], [id number], [id number] ####[facility] (DEFAULT)[address] [place] [address] Provider [place] 01-12-2019 Provider Orders [id number]#1.00OTGTIF [facility] Provider [place] 01-06-2019 Provider Orders [id number]#1.00OTGTIF [facility] Coding Summaryon 01-05-2019 Coding Summary CODING DATE: 019 [facility] STATUS: Home PAYOR: Commercial Insurance APC [...] Wendy Palomino Date Saved: 01/05/2019 09:39 am Normal [facility] [place] T3 Free LCon 01-05-2019 Triiodothyronine,Fr ee,Serum LC 3.0 pg/mL 2.0-4.4 [facility] [place] Comment on above: Result Comment: Perf ormed At: [facility] [address] [id number] Yumiko Sheppard PhD Ph:[phone] Performed By: #### 4 [id number], [id number] #### [facility] (DEFAULT) [address] [place] [address] Free T4on 01-04-2019 Free T4 [Mass/Vol] 0.83 ng/dL Normal 0.61-1.12 [facility] Comment on above: Result Comment: Spec imens that contain high levels of Biotin may cause false high results Performed By: #### 4 [id number], [id number] #### [facility] (DEFAULT) [address] [place] [address] TSHon 01-04-2019 TSH Qn 2.15 mcIU/mL Normal 0.45-5.33 [facility] [place] Comment on above: Result Comment: Gene ral Population (males and non- females, aged 21-88) 0.45 - 5.33 Females, 1st Trimester 0.05 - 3.70 Females, 2nd Trimester 0.31 - 4.35 Females, 3rd Trimester 0.41 - 5.18 Performed By: #### 4 [id number], [id number] #### [facility] (DEFAULT) [address] [place] [address] US Thyroidon 01-04-2019 US Thyroid EXAM: US [...] MD 01/04/19 3:38 pm Technologist: Jalyn ELY [facility] Vit D25 OHon 01-04-2019 Vitamin D 25 [place] 26 ng/mL [facility] [place] Comment on above: Result Comment: In 2 011, the Clinical Guidelines Subcommittee of the Endocrine [...] J Clin Endocrinol Metab 2011; 96 (7): 3655-9776. Performed By: #### 4 [id number], [id number] #### [facility] (DEFAULT) [address] [place] [address] Coding Summaryon 12-09-2018 Coding Summary CODING DATE: 019 [facility] STATUS: Home PAYOR: Commercial Insurance ADMIT [...] Wendy Palomino Date Saved: 12/09/2018 01:01 pm [facility] Provider [place] 12-08-2018 Provider Orders [id number]#1.00OTGTIF F [facility] T3 Free LCon 12-08-2018 Triiodothyronine,Fr ee,Serum LC 2.5 pg/mL 2.0-4.4 [facility] [place] Comment on above: Result Comment: Perf ormed At: [facility] [address] [id number] Yumiko Sheppard PhD Ph:[phone] Performed By: #### 2 [id number], [id number], [id number] #### [facility] (DEFAULT) [address] [place] [address] Free T4on 12-07-2018 Free T4 [Mass/Vol] 0.84 ng/dL Normal 0.61-1.12 [facility] Comment on above: Result Comment: Spec imens that contain high levels of Biotin may cause false high results Performed By: #### 2 [id number], [id number], [id number] #### [facility] (DEFAULT) [address] [place] [address] TSHon 12-07-2018 TSH Qn 2.68 mcIU/mL Normal 0.45-5.33 [facility] [place] Comment on above: Result Comment: Gene ral Population (males and non- females, aged 21-88) 0.45 - 5.33 Females, 1st Trimester 0.05 - 3.70 Females, 2nd Trimester 0.31 - 4.35 Females, 3rd Trimester 0.41 - 5.18 Performed By: #### 2 996208, [id number], [id number] #### [facility] (DEFAULT) [address] [place], [place] [id number] Coding Summaryon 08-13-2018 Coding Summary CODING DATE: 018 FINAL [facility] STATUS: Home PAYOR: Commercial Insurance ADMIT [...] Palomino Date Saved: 08/13/2018 08:53 am Normal [facility] C Throaton 08-09-2018 C Throat Ordered by Discern. Normal throat gene isolated No pathogens isolated [facility] Comment on above: Performed By: #### 4 [id number], [id number] #### [facility] (DEFAULT) [address] [place] [address] ED Clinical Summaryon 2017 ED Clinical Summary [facility] [place] ? Urgent Care [address] [place] [address] Clinical Summary PERSON INFORMATION Name: EB WILCOX Age: 43 Years Sex: FEMALE : [birth year] MRN: Acct#: Visit Reason: UC - Sore Throat; C/O WHITE SPOT IN THROAT Arrival: 08/07/18 14:50:00 Discharge: 08/07/18 15:27:00 LOS: 000 00:37 Check In: 08/07/18 14:50:00 Checkout: 08/07/18 15:27:00 Address: [address] [place] [address] PCP: Provider, None PROVIDER INFORMATION Provider Role [...] Patient/family/caregiver verbalizes understanding of instructions given Comment: [facility] ED Note - Physicianon 2017 ED Note [...] treatment plan. Impression and Plan Diagnosis Tonsillolith (ZXG01-CK J35.8, Discharge, Medical) Plan Patient was given [...] on: 08/07/2018 17:00 EST] Juan Miguel Heard Normal [facility] ED Patient Summaryon 018 ED Patient Summary [facility] [place] ? Urgent [address] [address] PATIENT DISCHARGE INSTRUCTIONS Patient Information Name: EB WILCOX Age: 43 Years Date of : [birth year] [facility]: [id number] Reason For Visit: UC - Sore Throat; [...] 10/15/2005 Document Revised: 05/13/2017 Document Reviewed: 12/14/2014 [employer] Interactive Patient Education ? 2017 [employer] Medication Information: The exam and treatment you received today in the [facility] Emergency Department were for an urgent problem and are not intended as complete care. It is important for you to follow up with a doctor, nurse practitioner, or physician?s dental ceramist assistant for ongoing care. If your symptoms [...] so we can reach you if necessary. [facility] Emergency Department has provided you with a complete list of medications post discharge. Please inform your cigar sorter/provider of your visit and for further instruction on these medications. Any specific questions regarding your chronic medications and dosages should be discussed with your primary care physician(s) and/or pharmacist. New Medications Other Medications thyroid desiccated ([place] Thyroid 60 mg oral tablet) 1 tab(s) Oral every day. Visit Information Visit Diagnosis: Diagnoses This Visit Tonsillolith (J35.8) UC - Sore Throat ([id number]) If you received any narcotics, sedation, or [...] Stop date 08/07/18 15:02:00 EST, Nurse collect, [id number] Radiology Cardiology Viruses or Bacteria What?s got [...] Disease Control and Prevention May 2014 Normal [facility] Strep Aon 08-07-2018 Strep A Negative Normal Negative [facility] Comment on above: Performed By: #### 4 [id number], [id number] #### [facility] (DEFAULT) [address] [place] [address] Strep procedure control Pass [facility] Comment on above: Performed By: #### 4 [id number], [id number] #### [facility] (DEFAULT) [address] [place] [address] Urgent Care [place] 018 Urgent Care Record [facility] ? Urgent Care [address] [place] [address] PATIENT DISCHARGE INSTRUCTIONS Patient Information Name: EB WILCOX Age: 43 Years Date of : [birth year] Reason For Visit: UC - Sore Throat; C/O WHITE SPOT IN THROAT Arrival Time: 08/07/18 14:50:00 Primary Care Physician: Provider, None Attending Physician: Juan Miguel Heard Comment: Visit Diagnosis: Diagnoses This Visit Tonsillolith (J35.8) UC - Sore Throat ([id number]) If you received any narcotics, sedation, or [...] and treatment you received today in the [facility] Urgent Care were for an urgent problem and are not intended as complete care. It is important for you to follow up with a doctor, nurse practitioner, or physician?s dental ceramist assistant for ongoing care. If your symptoms [...] so we can reach you if necessary. [facility] Urgent Care has provided you with a complete list of medications post discharge. Please inform your cigar sorter/provider of your visit and for further instruction on these medications. Any specific questions regarding your chronic medications and dosages should be discussed with your primary care physician(s) and/or pharmacist. New Medications Other Medications thyroid desiccated ([place] Thyroid 60 mg oral tablet) 1 tab(s) [...] 10/15/2005 Document Revised: 05/13/2017 Document Reviewed: 12/14/2014 [employer] Interactive Patient Education ? 2017 [employer] Viruses or Bacteria What?s got you sick? [...] for Disease Control and Prevention May 2014 [facility] Letter TextToll Free : [phone].[email or web address]/cancer [facility] - [address] [address]Ovaxv: [phone]: [facility] [place], [place] [address]Tbumb: [phone]: [place] [id number] [place], [place] [address]Oqhfm: [phone]: Cornelius Palomino M.D., Roni Cardenas M.D.Abdulaziz Mendoza M.D.Slava Carrillo D.O..Gustavo Gottlieb M.D.Jennifer Mcdonald M.D. Kaur Castrejon M.D..04/15/2017Eb Mcguirec [id number] [facility] [address] Bhavik GonzalezBRIGH[facility] OB/GYNDear Eb Boone's lupus anticoagulant panel was negative. She has no evidence of theantiphospholipid antibody syndrome/lupus anticoagulant. I have given thepatient reassurance with the lab results. Thanks Dr Gonzalez, and kindestregards,Sincerely, Maeve Cardenas MD(signed electronically to expedite mailing) Normal [facility] APTTon 04-13-2017 aPTT 29.7 s Normal 23.0-32.4 [facility] Comment on above: Result Comment: [...] reagent. Performed By: #### P T, PTT ####[address] [phone] + CBCon 04-13-20 17 Absol Gran Count 4.44 k/uL Normal 1.45-7.50 [facility] Comment on above: Performed By: #### P T, PTT ####[address] [phone] Erythrocyte distribution width Auto Ratio (RBC) 12.5 % Normal 11.5-15.0 [facility] Comment on above: Performed By: #### P T, PTT ####[address] [phone] Erythrocytes (RBC) 4.05 10*6/uL Normal 3.90-5.20 [facility] Comment on above: Performed By: #### P T, PTT ####[address] [phone] Hematocrit (HCT) 38.2 % Normal 36.0-46.0 [facility] Comment on above: Performed By: #### P T, PTT ####[place] [address] [place], [place] [phone] Hemoglobin mass conc (Bld) 13.2 g/dL Normal 11.5-15.5 [facility] Comment on above: Performed By: #### P T, PTT ####[address] [phone] MCH 32.6 pG Normal 26.0-34.0 [facility] Comment on above: Performed By: #### P T, PTT ####[address] [phone] MCHC mass conc (RBC) 34.6 g/dL Normal 30.5-36.0 [facility] Comment on above: Performed By: #### P T, PTT ####[place] [phone] MCV 94.3 fL Normal 80.0-100.0 [facility] Comment on above: Performed By: #### P T, PTT ####[address] [phone] Platelet mean volume (PMV) 10.0 fL Normal 9.0-12.7 [facility] Comment on above: Performed By: #### P T, PTT ####[address] [phone] Platelets 252 10*3/uL Normal 150-400 [facility] Comment on above: Performed By: #### P T, PTT ####[address] [phone] WBC (Leukocytes) 6.97 10*3/uL Normal 3.70-11.00 [facility] Comment on above: Performed By: #### P T, PTT ####[facility] [address] [place], [place] [phone] CNOVSPon 04-13-2017 CNOVSP Visit (SP) Office (HEMASA) EB DE LA TORRE ([id number]) 1975 FDate Time Provider Department04/13/17 4:00 PM [...] laboratory test PTTPAST SURGICAL HISTORYNo date: BREAST GYHLAQ8512/09/2016: DANDamp;C, DIAG AND/OR THERAPEUTIC Comment: Dilation ANDamp; [...] 14.4 oz) LMP (LMP Unknown) BMI 27.06 kg/n0Qtkasvm Appearance: alert and oriented, appearing in no [...] CBC- PROTHROMBIN TIME/PT- ACTIVATED PTT- LUPUS ANTICOAG PLMaeve Cardenas, DONeferring Provider: BHAVIK GONZALEZ [[id number]]Allergies As of Date: 04/13/2017(No Known Allergies)Date Reviewed: 04/13/2017Reviewed by: Bren Berry - Fully AssessedPrimary Visit Diagnosis:Less than 8 weeks gestation of [Z3A.01]Order(s):ABS GRAN CT + CBC [SQAGCCBC] Order #: [id number] FUTURE PROTHROMBIN TIME/PT [SQPT] Order #: [id number] FUTURE ACTIVATED PTT [SQPTT] Order #: [id number] FUTURE LUPUS ANTICOAG PL [SQLUPUSP] Order #: [id number] FUTUREPrescriptions as of 04/13/2017 Sig: + DHA ORAL Take by mouth. PROGESTERONE MISC ARMOUR THYROID 60 MG TABLET Take 60 mg by mouth once aliyah*Problem List As Of Date 04/13/2017 Noted Resolved Less than 8 weeks gestation of [Z3A.0*INVALID FOR*Encounter Status:Closed by MAEVE CARDENAS MD on 04/13/17 Normal [facility] Lupus Anticoag Panelon 04-13 aPTT 29.2 s Normal <33.5 [facility] Comment on above: Performed By: #### L UPUSP ####[facility] [address] [place], [place] [phone] aPTT 29.9 s Normal <37.3 [facility] Comment on above: Performed By: #### L UPUSP ####[facility] [address] [place], [place] [phone] aPTT 33.1 s Normal 24.4-33.4 [facility] Comment on above: Performed By: #### L UPUSP ####[place] [id number] [place], [place] [phone] aPTT 28.6 s Normal 23.0-32.4 [facility] Comment on above: Result Comment: [...] APTT reagent. Performed By: #### L UPUSP ####[place] [id number] [place], [place] [phone] Beta2 Glycoprot IgG <9 Normal <20 [facility] Comment on above: Result Comment: < 20 SGU Onotvvhz14-26 SGU Low Positive> 80 SGU High PositiveThese results were obtained with the [employer] QUANTA Lite B2 GPI IgG MATTIE. B2 GPI IgG values obtained with different manufacturers' assay methods may not be used interchangeably. The magnitude of the reported IgG levels cannot be correlated to an endpoint titer. Performed By: #### L UPUSP ####[place] [address] [place], [place] [phone] Beta2 Glycoprot IgM <9 Normal <20 [facility] Comment on above: Result Comment: < 20 SMU Onxonhif84-14 SMU Low Positive> 80 SMU High PositiveThese results were obtained with the [employer] QUANTA Lite B2 GPI IgM MATTIE. B2 GPI IgM values obtained with different manufacturers' assay methods may not be used interchangeably. The magnitude of the reported IgM levels cannot be correlated to an endpoint titer. Performed By: #### L UPUSP ####[address]Jeff[address], [place] [phone] DRVVT 1:1 Mix 37.4 sec Normal 32.7-46.7 [facility] Comment on above: Performed By: #### L UPUSP ####[place] [address], [place] [phone] DRVVT Confirm Ratio 1.07 Normal <1.21 [facility] Comment on above: Performed By: #### L UPUSP ####[place] [address], [place] [phone] DRVVT Screen 35.0 sec Normal 32.7-46.7 [facility] Comment on above: Performed By: #### L UPUSP ####[address] [phone] Hex Phase Confirm 54.4 sec Normal 45.1-64.1 [facility] Comment on above: Performed By: #### L UPUSP ####[place] [address] [address], [place] [phone] Hex Phase Delta 0.1 delta sec Normal <9.0 [facility] Comment on above: Performed By: #### L UPUSP ####[place] [address] [address], [place] [phone] Hex Phase Screen 54.5 sec Normal 48.9-70.2 [facility] Comment on above: Performed By: #### L UPUSP ####[address], [place] [phone] IgA Cardiolipin Ab. <9 Normal 0-11 [facility] Comment on above: Result Comment: <12 APL [id number] APL Equivocal>40 APL PositiveThe following results were obtained with an ArboribusA Lite NIKI IgA III MATTIE. Cardiolipin IgA values obtained with different manufacturers' assay methods may not be used interchangeably. The magnitude of the reported IgA levels cannot be correclated to an endpoint titer. Performed By: #### L UPUSP ####[place] [address] [place], [place] [phone] IgG Cardiolipin Ab. <9 Normal 0-9 [facility] Comment on above: Result Comment: <10 GPL [id number] GPL Equivocal>40 GPL PositiveThe following results were obtained with the Inova QUANTA Lite NKII IgG III MATTIE. Cardiolipin IgG values obtained with the different manufacturers' assay methods may not be used interchangeably. The magnitude of the reported IgG levels cannot be correlated to an endpoint titer. Performed By: #### L UPUSP ####[address] [phone] IgM Cardiolipin Ab. <9 Normal 0-11 [facility] Comment on above: Result Comment: <12 MPL [id number] MPL Equivocal>40 MPL PositiveThe following results were obtained with the Inova QUANTA Lite NIKI IgM III MATTIE. Cardiolipin IgM values obtained with different manufacturers' assay methods may not be used interchangeably. The magnitude of the reported IgM levels cannot be correlated to an endpoint titer. Performed By: #### L UPUSP ####[address] [phone] Interpretation (NOTE) Normal [facility] Comment on above: Result Comment: [facility] Path[facility]: La Martinez M.D., Ph.D.Interpretation:Normal - see [...] 74:[id number] (1995). Performed By: #### L UPUSP ####[facility] [place], [place] [phone] PNP Negative Normal Negative [facility] Comment on above: Performed By: #### L UPUSP ####[facility] [place], [place] [phone] PT Sec 10.7 sec Normal 8.4-13.0 [facility] Comment on above: Performed By: #### L UPUSP ####[place] [address] [place], [place] [phone] Thrombin Time 15.5 sec Normal <18.6 [facility] Comment on above: Performed By: #### L UPUSP ####[place] [address] [place], [place] [phone] PROGRESSon 04-13-2017 PROGRESS HNO ID: [id number] thor: Maeve Olsen: (none)Author Type: PhysicianType: Progress [...] laboratory test PTTPAST SURGICAL HISTORYNo date: BREAST OJXZEC3212/09/2016: DANDC, DIAG AND/OR THERAPEUTIC Comment: Dilation AND [...] lb 14.4 oz) LMP (LMPUnknown) BMI 27.06 kg/w9Jherlco Appearance: alert and oriented, appearing in no [...] PTT- LUPUS ANTICOAG Konstantin Cardenas MD Normal [facility] Protimeon 04-13-2017 INR Coag RelTime (Bld) 1.0 {INR} Normal 0.8-1.2 [facility] Comment on above: Result Comment: [...] 233S. Performed By: #### P T, PTT ####[facility] [address] [place], [place] [phone] Performed By: #### L UPUSP ####[facility] [address] [place], [place] [phone] PT Sec 10.9 sec Normal 8.4-13.0 [facility] Comment on above: Performed By: #### P T, PTT ####[facility] [address] [place], [place] [phone] Vital Signs Date Time Vital Sign Value Performing Clinician Facility 11-02-2023 14:47-0500 Body mass index (BMI) [Ratio] 28.02 kg/m2 Amanda Visci DO Work Phone: [facility] 11-02-2023 14:47-0500 Body weight 76.39 kg Amanda Visci DO Work Phone: [facility] 11-02-2023 14:47-0500 Diastolic blood pressure 62 mm[Hg] Amanda Visci DO Work Phone: [facility] 11-02-2023 14:47-0500 Systolic blood pressure 118 mm[Hg] Amanda Visci DO Work Phone: [facility] 08-31-2023 12:17-0500 Diastolic blood pressure 60 mm[Hg] MD Mic Bowen Work Phone: [facility] 08-31-2023 12:17-0500 Heart rate 60 /min MD Mic Bowen Work Phone: [facility] 08-31-2023 12:17-0500 Respiratory rate 14 /min MD Mic Bowen Work Phone: [facility] 08-31-2023 12:17-0500 SaO2% (BldA) [Mass fraction] 99 % MD Mic Bowen Work Phone: [facility] 08-31-2023 12:17-0500 Systolic blood pressure 95 mm[Hg] MD Mic Bowen Work Phone: [facility] 08-31-2023 10:20-0500 Body height 165.1 cm MD Mic Bowen Work Phone: [facility] 08-31-2023 10:20-0500 Body weight 73.93 kg MD Mic Bowen Work Phone: [facility] 07-21-2023 13:00-0400 Body height 165.1 cm Imad Asaad Other [employer] Other 07-21-2023 13:00-0400 Body mass index (BMI) [Ratio] 26.62 kg/m2 Imad Asaad Other [employer] Other 07-21-2023 13:00-0400 Body weight 72.58 kg Imad Asaad Other [facility] Other 07-21-2023 13:00-0400 Diastolic blood pressure 79 mm[Hg] Imad Asaad Other [employer] Other 07-21-2023 13:00-0400 Systolic blood pressure 124 mm[Hg] Imad Asaad Other [employer] Other 05-13-2023 16:00-0400 Body height 165.1 cm Cooper Hardwick Other [employer] Other 05-13-2023 16:00-0400 Body mass index (BMI) [Ratio] 26.29 kg/m2 Cooper Hardwick Other [employer] Other 05-13-2023 16:00-0400 Body weight 71.67 kg Cooper Hardwick Other [facility] Other 05-13-2023 16:00-0400 Diastolic blood pressure 75 mm[Hg] Cooper Hardwick Other [facility] Other 05-13-2023 16:00-0400 Respiratory rate 18 /min Cooper Hardwick Other [employer] Other 05-13-2023 16:00-0400 SaO2% (BldA) [Mass fraction] 98 % Cooper Hardwick Other [facility] Other 05-13-2023 16:00-0400 Systolic blood pressure 117 mm[Hg] Cooper Hardwick Other [facility] Other 12-30-2022 15:15-0400 Body height 165.1 cm Cooper Hardwick Other [facility] Other 12-30-2022 15:15-0400 Body temperature 98.2 [degF] Cooper Hardwick Other [facility] Other 12-30-2022 15:15-0400 Diastolic blood pressure 82 mm[Hg] Cooper Hardwick Other [facility] Other 12-30-2022 15:15-0400 Respiratory rate 20 /min Cooper Hardwick Other [employer] Other 12-30-2022 15:15-0400 SaO2% (BldA) [Mass fraction] 100 % Cooper Hardwick Other [employer] Other 12-30-2022 15:15-0400 Systolic blood pressure 127 mm[Hg] Cooper Hardwick Other [facility] Other 08-18-2022 09:05-0500 Diastolic blood pressure 59 mm[Hg] MD Mic Bowen Work Phone: [facility] 08-18-2022 09:05-0500 Heart rate 53 /min MD Mic Bowen Work Phone: [facility] 08-18-2022 09:05-0500 Respiratory rate 16 /min MD Mic Bowen Work Phone: [facility] 08-18-2022 09:05-0500 SaO2% (BldA) [Mass fraction] 99 % MD Mic Bowen Work Phone: [facility] 08-18-2022 09:05-0500 Systolic blood pressure 97 mm[Hg] MD Mic Bowen Work Phone: [facility] 08-18-2022 07:34-0500 Body height 165.1 cm MD Mic Bowen Work Phone: [facility] 08-18-2022 07:34-0500 Body temperature 98.3 [degF] MD Mic Bowen Work Phone: [facility] 08-18-2022 07:34-0500 Body weight 72.12 kg MD Mic Bowen Work Phone: [facility] 05-12-2022 16:15-0400 Body height 165.1 cm Cooper Hardwick Other [employer] Other 05-12-2022 16:15-0400 Body mass index (BMI) [Ratio] 26.62 kg/m2 Cooper Hardwick Other [employer] Other 05-12-2022 16:15-0400 Body weight 72.58 kg Cooper Hardwick Other [employer] Other 08-22-2022 16:15-0400 Diastolic blood pressure 70 mm[Hg] Cooper Hardwick Other [facility] Other 05-12-2022 16:15-0400 Respiratory rate 18 /min Cooper Hardwick Other [facility] Other 05-12-2022 16:15-0400 SaO2% (BldA) [Mass fraction] 98 % Cooper Hardwick Other [facility] Other 05-12-2022 16:15-0400 Systolic blood pressure 110 mm[Hg] Cooper Hardwick Other [employer] Other Encounters Encounter Date Encounter Type Care Provider Facility Start: 11-09-2023 End: 11-09-2023 ambulatory Imad Asaad Facility:[facility] Start: 11-09-2023 End: 11-09-2023 ambulatory MD Mic Bowen Work Phone: [facility] Work Phone: Start: 11-09-2023 End: 11-09-2023 Patient encounter procedure MD Mic Bowen Work Phone: [facility]-CT [facility] [place] Work Phone: Start: 11-02-2023 End: 11-03-2023 ambulatory AMANDA Martine KACI Not Available Start: 11-02-2023 End: 11-02-2023 Patient encounter status Amanda Martine Kaci DO Work Phone: [facility] Start: 11-02-2023 End: 11-02-2023 Periodic preventive med est patient 40-64yrs Amanda Martine Kaci DO Work Phone: [facility] Comment on above: Encounter for gyneco logical examination without abnormal finding; Encounter for screening mammogram for malignant neoplasm of breast; Encounter for screening for cervical cancer Start: 10-26-2023 Chart abstracting Amanda Farley Vi sci DO Work Phone: [facility] Start: 10-26-2023 End: 10-26-2023 ambulatory Imad Asaad Facility:[facility] Start: 10-26-2023 End: 10-26-2023 ambulatory MD Mic Bowen Work Phone: [facility] Work Phone: Start: 10-26-2023 End: 10-26-2023 Patient encounter procedure MD Mic Bowen Work Phone: [facility]-Nuc Med [facility] [place] Work Phone: Start: 09-07-2023 End: 09-07-2023 ambulatory Imad Asaad Other [employer] Other Start: 09-07-2023 Telephone encounter Imad Asaad [facility] Start: 08-31-2023 End: 08-31-2023 ambulatory Imad Asaad Facility:[facility] Start: 08-31-2023 End: 08-31-2023 Admission to same day surgery center MD Mic Bowen Work Phone: [facility] Work Phone: Start: 08-31-2023 End: 08-31-2023 ambulatory MD Mic Bowen Work Phone: [facility] Work Phone: Start: 08-24-2023 End: 08-24-2023 ambulatory MIC BOWEN Not Available Start: 08-10-2023 End: 08-10-2023 ambulatory Imad Asaad Facility:[facility] Start: 08-10-2023 End: 08-10-2023 ambulatory MD Mic Bowen Work Phone: [facility] Work Phone: Start: 08-10-2023 End: 08-10-2023 Patient encounter procedure MD Mic Bowen Work Phone: [facility]Ultrasound [facility] [place] Work Phone: Start: 08-06-2023 End: 08-07-2023 ambulatory MIC BOWEN Facility:[facility] [place] Start: 07-22-2023 End: 07-22-2023 ambulatory Imad Asaad Other [employer] Other Start: 07-22-2023 Telephone encounter Imad Asaad [facility] Start: 07-21-2023 End: 07-21-2023 ambulatory Imad Asaad Other [employer] Other Start: 07-21-2023 Office outpatient ne w 45 minutes Imad Asaad [facility] Start: 05-13-2023 End: 05-13-2023 ambulatory Cooper Louiepiter Other [employer] Other Start: 05-13-2023 Patient encounter procedure Cooper Hardwick [facility] Start: 05-13-2023 Periodic preventive med est patient 40-64yrs Cooper Hardwick [facility] Start: 05-05-2023 End: 05-06-2023 ambulatory MIC BOWEN Facility:[facility] [place] Start: 04-14-2023 End: 04-15-2023 ambulatory MIC BOWEN Facility:[facility] [place] Start: 01-12-2023 End: 01-13-2023 ambulatory MIC BOWEN Facility:[facility] [place] Start: 12-30-2022 End: 12-30-2022 ambulatory Cooperjohn Hoyosskyla Other [employer] Other Start: 12-30-2022 Office outpatient vi sit 15 minutes Cooper Ronen [facility] Start: 08-18-2022 Telephone encounter [facility] Start: 08-18-2022 End: 08-18-2022 Admission to same day surgery center MD Mic Bowen Work Phone: [facility] Start: 08-18-2022 End: 08-18-2022 ambulatory MD Mic Bowen Work Phone: [facility] Work Phone: Start: 05-12-2022 End: 05-12-2022 ambulatory Cooper Hardwick Other [employer] Other Start: 05-12-2022 Patient encounter procedure Cooper Hoyosvandanaqiana [facility] Start: 05-12-2022 Periodic preventive med est patient 40-64yrs Cooper Ronen [facility] Start: 12-02-2021 End: 03-13-[address] BECKY [...] Start: 04-13-2017 End: 04-14-2017 Ambulatory MAEVE CARDENAS [facility] [place] Procedures Date Procedure Procedure Detail Performing Clinician Start: 11-09-2023 Computed tomography of abdomen and pelvis with contrast MD Mic Bowen Work Phone: Start: 11-02-2023 THINPREP TIS PAP AND HPV MRNA E6/E7 WITH REFLEX TO HPV 16,18/45 Amanda Clemons DO Work Phone: Start: 11-02-2023 Mammography Amanda Clemons DO Work Phone: Start: 10-26-2023 Radionuclide gastric emptying study MD Sam Bowen Work Phone: Start: 08-31-2023 Esophagogastroduodenoscopy MD Mic sanchez Work Phone: Start: 08-10-2023 Ultrasonography of abdomen MD Mic sanchez Work Phone: Start: 10-06-2022 Mammography Amanda Clemons DO Work Phone: Start: 08-18-2022 Colonoscopy MD Mic Bowen Work Phone: Plan of Treatment Date Care Activity Detail Author Start: 11-07-2024 End: 11-07-2024 Patient encounter procedure 11/07/2024 11:30 AM EST Office Visit [facility] [address] [place] [address] Amanda Clemons, DO [address] [place] [address] [facility] Start: 11-07-2024 End: 11-07-2024 Professional / ancillary services management 11/07/2024 11:00 AM EST Ancillary Procedure [facility] [address] [place] [address] [facility] Start: 11-02-2024 Screening for malign ant neoplasm of breast Mammogram [facility] Start: 02-16-2024 End: 02-16-2024 Patient encounter procedure 02/16/2024 11:30 AM EDT Office Visit [facility] [address] [facility] [place] [address] Mic Bowen MD [address] [facility] [place] [address] (Fax) [facility] Start: 11-02-2023 End: 11-02-2023 Patient encounter procedure 11/02/2023 2:15 PM EST Office Visit [facility] [address] [place] [phone] Amanda Clemons, DO [address] [place] [address] [facility] Start: 11-02-2023 End: 12-31-2024 DBT Breast - bilateral screening Bilateral screening mammogram with tomosynthesis Imaging Routine Encounter for screening mammogram for malignant neoplasm of breast Expected: 11/02/2023, Expires: 12/31/2024 [facility] Work Phone: Comment on above: Expected: 11/02/2023 , Expires: 12/31/2024 Start: 11-02-2023 End: 11-02-2023 Professional / ancillary services management 11/02/2023 1:30 PM EST Ancillary Procedure [facility] [address] [place] [phone] [facility] Start: 10-06-2023 Screening for malign ant neoplasm of breast Mammogram [facility] Start: 08-31-2023 [facility] Start: 05-22-2023 Influenza vaccination Influenza Vacc ine (#1) [facility] Start: 08-18-2022 [facility] Start: 2007 Screening for malign ant neoplasm of cervix [facility] Start: 1998 Screening for malign ant neoplasm of cervix Pap Smear [facility] Start: 1977 Screening for malign ant neoplasm of colon [facility] Patient Education [facility] Work Phone: Immunizations Immunization Date Immunization Notes Care Provider Fa cility 01-07-2021 Moderna SARS-CoV-2 Vaccination Amanda Visci DO Work Phone: [facility] 12-10-2020 Moderna SARS-CoV-2 Vaccination Amanda Visci DO Work Phone: [facility] 09-17-2017 tetanus toxoid, redu paris diphtheria toxoid, and acellular pertussis vaccine, adsorbed Amanda Visci DO Work Phone: [facility] 06-29-2017 seasonal influenza, intradermal, preservative free Amanda Visci DO Work Phone: [facility] 06-29-2017 influenza virus vacc ine, unspecified formulation Amanda Visci DO Work Phone: [facility] Payers Date Payer Category Payer Self-pay [id number] 2023 Unknown FRONTPATH FRONTP ATH [id number] 2023-Present [address] [place] [address] [id number] [id number] 1977 Unknown [id number] ..840.1.429865.3.579.2.593 1977 Unknown [id number] .840.1.600315.3.579.2.593 1977 Unknown [id number] 840.1.882807.3.579.2.593 1977 Unknown [id number] 2.16.840.1.892561.3.579.2.593 1977 Unknown [id number] .16.840.1.013940.3.579.2.593 1977 Unknown [id number] ..840.1.261496.3.579.2.593 1977 Unknown [id number] .840.1.536994.3.579.2.593 1977 Unknown [id number] 2.16.840.1.021324.3.579.2.593 1977 Unknown [id number] 2.16.840.1.418217.3.579.2.593 1977 Unknown [id number] 2.16.840.1.888771.3.579.2.593 1977 Unknown [id number] 2.16.840.1.920147.3.579.2.593 1977 Unknown [id number] 2.16.840.1.985068.3.579.2.593 1977 Unknown [id number] 2.16.840.1.174119.3.579.2.593 1977 Unknown [id number] 2.16.840.1.857895.3.579.2.593 1977 Unknown [id number] 2.16.840.1.051843.3.579.2.718 1977 Unknown [id number] 2.16.840.1.858478.3.579.2.718 1977 Unknown [id number] 2.16.840.1.863000.3.579.2.718 1977 Unknown [id number] 2.16.840.1.773175.3.579.2.718 1977 Unknown [id number] 2.16.840.1.054423.3.579.2.125 9 1977 Unknown [id number] 2.16.840.1.836338.3.579.2.125 9 1977 Unknown [id number] 2.16.840.1.300115.3.579.2.125 9 1959 Self-pay [id number] 1959 Unknown [id number] Unknown [id number] 2.16.840.1.896109.3.579.2.531 Unknown [id number] 2.16.840.1.110216.3.579.2.531 Unknown [id number] 2.16.840.1.803246.3.579.2.531 Unknown [id number] 2.16.840.1.409659.3.579.2.531 Social History Date Type Detail Facility Unknown if ever smoked [employer] Other Start: 08-24-2023 End: 11-02-2023 Sex Assigned At [facility] Start: 08-18-2022 End: 08-31-2023 Tobacco smoking status NHIS Never smoked tobacco (finding) [facility] Start: 1975 Sex Assigned At Female [facility] Start: 03-26-2023 Tobacco use and exposure Smokeless tobacco non-user [facility] Start: 10-26-2023 End: 11-02-2023 Alcohol intake Lifetime non-drinker (finding) [facility] Start: 08-24-2023 End: 11-02-2023 History of Social function [facility] Within the last year , have you been afraid of your partner or ex-partner? No [facility] How often do you att end yarsani or hindu services? Patient refused [facility] Do you belong to any clubs or organizations such as yarsani groups, unions, fraternal or athletic groups, or [...] Desired Activity /State Clinical Notes 05-12-2022 to 11-02-2023 Amanda Clemons, DO - 11/02/2023 2:15 PM EST Note Date & Type Note Facility 11-02-2023 History of Present illness Narrative Images from the original note were not included. Amanda Clemons, Obstetrics and Gynecology Eb Jaimes Wil 1975 11/03/23 [id number] Yearly Wellness Exam Chief Complaint Patient presents with Gynecologic Exam Yearly .Denies breast, urinary, bowel, and risk and compliance analytics director problems Visit Vitals BP 118/62 Wt 168 lb 6.4 oz LMP 10/22/2023 Comment: x 5 days flow normal BMI 28.02 kg/m OB Status Having periods Smoking Status Never BSA 1.87 m Current Outpatient Medications on File Prior to Visit Medication Sig esomeprazole (NexIUM) [address] capsule levothyroxine (Synthroid) 25 MCG tablet Take 1 tablet (25 mcg) by mouth in the morning. Take before meals. thyroid ([place] Thyroid) 60 MG tablet Take 1 tablet (60 mg) by mouth in the morning and 1 tablet (60 mg) in the evening. Take before meals. [DISCONTINUED] Levonorgestrel-Ethinyl Estrad (Tyblume) 0.1-20 MG-MCG chewable tablet Chew 1 tablet in the morning. No current facility-administered medications on file prior to visit. Allergies Allergen Reactions Escitalopram Other Reaction(s): tinnitus issues and constipation Latex Past Medical History: Diagnosis Date Acquired hypothyroidism (CMS/HCC) Conversion disorder ([facility]) Dr. Roldan Villar Gastritis Goiter ([facility]) Dr. Aguilar History of abnormal cervical Pap smear Hypothyroidism (acquired) ([facility]/HCC) Low serum progesterone Pap smear for cervical cancer screening 08/27/2020 Neg, HPV Neg ; hx of ASCUS Thyroid disease (CMS/HCC) Varicella zoster Past Surgical History: Procedure Laterality Date BREAST BIOPSY Right Benign told dense breasts. CYST REMOVAL ganglion right hand DILATION AND CURETTAGE OF UTERUS 12/09/2016 VAGINAL DELIVERY 11/16/2017 Female 8# 9oz VARICOSE VEIN SURGERY WISDOM TOOTH EXTRACTION OB History Para Term AB Living 2 1 1 1 1 SAB IAB Ectopic Multiple Live Births 1 1 # Outcome Date GA Lbr Brijesh/2nd Weight Sex Delivery Anes PTL Lv 2 Term 02/26/18 39w4d 8 lb 9 oz F Vag-Spont EPI DRAKE 1 SAB 12/09/16 D&E Obstetric Comments Pap 08-27-2020 Neg. Neg. Mammogram 10-06-22, Neg. ROS General: Denies fevers/chills Eyes: Denies vision changes ENT: Denies neck stiffness, neck mass Endocrine: Denies polydipsia and polyuria Respiratory: Denies shortness of breath Cardiovascular: Denies chest pain and palpitations Gastrointestinal: Denies changes in bowel habits, blood in stool, constipation and diarrhea. Hematology: Denies easy bruising. Women Only: Denies breast masses, skin changes, nipple discharge, abnormal bleeding, pelvic pain and dyspareunia Genitourinary: Denies dysuria, pelvic pain and nocturia Skin: Denies rashes/lesions Neurologic: Denies headaches, dizziness, syncope Psychiatric: Denies hallucinations, suicidal ideas EXAM GENERAL EXAMINATION: Alert, oriented, well developed, well nourished. HEAD: Normocephalic, atraumatic. EYES: BRENDA, sclera anicteric. EARS: No obvious hearing deficit. NECK/THYROID: Neck supple no cervical lymphadenopathy no thyromegaly. LYMPH NODES: No axillary, supraclavicular or inguinal adenopathy. SKIN: Warm and dry. No rashes HEART: Regular rate and rhythm. No murmur LUNGS: Clear to auscultation bilaterally. CHEST: Axillary nodes grossly normal. BREASTS: No dominant masses palpable bilaterally, no skin changes, nipple discharge, supra-clavicular or axillary adenopathy ABDOMEN: Soft, nontender, nondistended, no hernia or masses palpable. BACK: No obvious scoliosis/kyphosis. FEMALE GENITOURINARY: Government Clerk in room-EFG without sores/lesions, normal vaginal mucosa-no discharge, cervix without lesions, uterus RV, NSSC, no adnexal masses, cul-de-sac negative. EXTREMITIES No edema. NEUROLOGIC: Alert and oriented. PSYCH: Cooperative with exam. ICD-10-CM 1. Encounter for gynecological examination without abnormal finding Z01.419 2. Encounter for screening mammogram for malignant neoplasm of breast Z12.31 Bilateral screening mammogram with tomosynthesis 3. Encounter for screening for cervical cancer Z12.4 THINPREP TIS PAP AND HPV MRNA E6/E7 WITH REFLEX TO HPV 16,18/45 Advised pt to perform monthly self breast exams. Encouraged calcium and Vitamin D intake. When I saw Livia back in June she was having perimenopausal symptoms of irritability, weight gain and some bleeding abnormalities. We convinced her to try control pills which she said she did for a short time but had breast tenderness and did not feel normal so she stopped them. She tells me now her periods are regular and normal and she feels fantastic. She is taking thyroid medications. She denies any breast issues in her breast exam was normal. We obtained a Pap today and she is due for a mammogram so the order was sent. She is going to notify me if she develops any significant menopausal symptoms or abnormal bleeding. If she does well we will just see her back in a year. documented in this encounter [facility] 08-31-2023 Procedure note [facility] 07-21-2023 Evaluation note Encounter Date Diagnosis Assessment Notes Jun, Functional constipation (ICD-10 - K59.04) Jun, Bloating (ICD-10 - R14.0) Jun, Epigastric abdominal pain (ICD-10 - R10.13) [facility] 10-31-2023 History general Narrative - Reported* Type Description Date Medical History Tendonitis Medical History Thyroid conversion issue Medical History tonsil stones Medical History varicose veins Medical History CIC IBS Surgical History varicose vein stripping 023 [facility] 08-23-2023 Evaluation note* Encounter Date Diagnosis Assessment Notes Treatment Notes Treatment Clinical Notes Apr, Annual physical exam (ICD-10 - Z00.00) Overall, patient doing well. Continue current care. Up to date on WWE and mammogram (through her forestry aid, Dr. Pringle). She recently had comprehensive labs done through her specialist, including thyroid levels and Vit D, and agrees to drop them off for my review. Apr, Acquired hypothyroidism (ICD-10 - E03.9) Patient is following with a specialist for management. She will have labs done through her specialist. Her dose was recently reduced -- questionable whether or not her [place] has anything to do with her constipation [...] agree that is reasonable at this time. [facility] 04-11-2023 Evaluation note* Encounter Date Diagnosis Assessment Notes Treatment Notes Treatment Clinical Notes Dec, Acute bacterial conjunctivitis of right eye (ICD-10 - H10.31) Will treat as detailed. We did discuss s/s of ocular emergencies -- immedeiately to the nearest ER for any of those s/s. Call with questions/concerns . [facility] Encounter Date Diagnosis Assessment Notes Treatment Notes Treatment Clinical Notes Apr, Annual physical exam (ICD-10 - Z00.00) Overall, patient doing well. Continue current care. Up to date on WWE and mammogram (through her forestry aid, Dr. Pringle). She plans to have comprehensive labs done through her specialist, including thyroid levels and Vit D. Apr, Acquired hypothyroidism (ICD-10 - E03.9) Patient is following with a specialist for management. She will have labs done through her specialist. [facility] Other Evaluation noteNo assessment information available [facility] Work Phone: Evaluation noteNo InformationNort [employer] Other Evaluation note* Diagnosis Encounter for gynecological examination without abnormal finding Encounter for screening mammogram for malignant neoplasm of breast Encounter for screening for cervical cancer documented in this encounter [facility] Author Kwame Noel [facility] August 18, 2022 8:07am Note Date/Time August 18, 2022 8:07am [facility] [address] [place] [address] Gastroenterology H&P Signed Patient: Eb De La Torre MR#: [id number] : 1975 Acct:[id number] Age/Sex: 47 / F Adm Date: 2 Loc: Room: Type: [facility] Attending Dr: Kwame Noel MD Copies [...] <Electronically signed by Kwame Noel MD> 08/18/22806 [facility] Work Phone: History and physical note Author Debi Mares [facility] August 31, 2023 11:27am Note Date/Time August 31, 2023 11:28am [facility] [address] [place], [place] [id number] Gastroenterology H&P Signed Patient: Eb De La Torre MR#: [id number] : 1975 Acct:[id number] Age/Sex: 48 / F Adm Date: 3 Loc: Room: Type: [facility] Attending Dr: Debi Mares MD Copies [...] Mares M.D. Documented By: Debi Mares MD 08/31/23 1127 Signed By: <Electronically signed by Debi Mares MD> 08/31/23 1127 [facility] Work Phone: History general Narrative - Reported* Type Description Date Medical History Tendonitis Medical History Thyroid conversion issue Medical History tonsil stones [facility] Other Hospital Discharge instructions Additional Instructions DISCHARGE [...] Follow up with PCP. - Office number [phone].[facility] Work Phone: Hospital Discharge instructions Additional [...] NOT operate machinery such as power tools, [employer], [employer], [employer] machines, etc. for 24 hours. - Avoid [...] if you have any problems. -Office number [phone]. [facility] Work Phone: Summary Purpose Family History No Family History Records Found Relationship Condition Age at Onset Recorded Date/T william Not Specified Hypothyroidism in adult Unknown Malignant neoplasm of skin Unknown father History of basal cell carcinoma (BCC) Unk nown brother Hypertension Unknown grandparent Heart problem Unknown Chronic obstructive pulmonary disease Unk nown Malignant neoplasm of lung Unknown grandparent Malignant neoplasm of lung Unknown grandparent Myocardial infarction Unknown Advance Directives No Advanced Directives Records Found Advance Directive Response Recorded Date/ Time Advance Directives No August 28, 2017 8:31am Chief Complaint and Reason for Visit Chief Complaint Change in Bowel Habi ts Chief Complaint R14.0 Chief Complaint R14.0 epigastric pain, bloating Chief Complaint R14.0 epigastric pain, bloating r14.0 r10.13 Chief Complaint epigastric pain, blo ating r14.0 r10.13 m24.20 Reason for Referral Reason Requesting Dr. Mares if possible (patient saw Dr. Noel for colonoscopy and was not pleased) LLQ pain, intermittent mucous in stools, frequent constipation Diagnosis 1 Slow transit constip ation (K59.01) Referral Organization [facility] Referring Provider First Name Cooper Referring Provider Last Name Ronen Referring Provider Specialty Family Prac jillian Referred Organization [facility] Gastroenterolo gy Referred Provider Debi Mares Referred Address [address] [place] [phone] Referred Provider Specialty Gastroentero logy Referral Priority Routine General Notes Beatriz Cid 04:04:06 PM >recieved today, faxed P2P Additional Source Comments INFORMATION SOURCE (unrecogn ized section and content) DATE CREATED AUTHOR 03/17/2018 [facility] DATE CREATED AUTHOR AUTHOR'S ORGANIZ ATION 07/28/2019 [facility] DATE CREATED AUTHOR AUTHOR'S ORGANIZ ATION [facility]/2022 [facility] DATE CREATED AUTHOR AUTHOR'S ORGANIZ ATION 01/27/2023 [facility] dical Specialist DATE CREATED AUTHOR AUTHOR'S ORGANIZ ATION 08/14/2023 [facility] DATE CREATED AUTHOR AUTHOR'S ORGANIZ ATION 11/07/2023 [facility] dical Specialists EPIC DATE CREATED AUTHOR AUTHOR'S ORGANIZ ATION 11/10/2023 [facility] REASON FOR VISIT (unrecogniz ed section and content) Reason Comments Gynecologic Exam Yearly .Denies breas t, urinary, bowel, and risk and compliance analytics director problems Care Teams (unrecognized sec tion and content) [...] Status: Inactive Member Role Status Dates Mic Bwoen MD Primary Care Provider Active Start: October 26, 2023 End: October 26, 2023 Debi Mares MD Attending Provider Active Start: October 26, 2023 End: October 26, 2023 [employer] Relationship Specialty Start Date End Date Cooper Hardwick MD PCP - General Family Medicine 02/25/23 [employer] Relationship Specialty Start Date End Date Cooper Hardwick MD [address] [place] [place] [id number] PCP - General Family Medicine 10/28/23 Team Status: Inactive Member Role Status Dates Mic Bowen MD Primary Care Provider Active Start: November 09, 2023 End: November 09, 2023 Debi Mares MD Attending Provider Active Start: November 09, 2023 End: November 09, 2023 Goals (unrecognized section and content) Goals may [...] BE BASED ON THE PRIMARY CLINICAL RECORDS. [email or web address] provides no warranty or guarantee of the accuracy or completeness of information in this document.
== END 2023-11-10 11:28 | disposition home or self-care (01) ==
LOC: VC 11:27
PROVIDERS: PCP Radiology Diagnostic Radiology; Visit Provider Radiology Diagnostic Radiology
DX: I80.02 Phlebitis and thrombophlebitis of superficial vessels of left lower extremity (principal)
CPT/HCPCS: 93971; G0463

== ENCOUNTER 2023-11-12 10:33 | Outpatient (OUT) | payer OTHER, SELFPAY ==
--- NOTE | 2023-11-12 10:37 | VEIN_ITS ---
[address] [address] Patient Name: EB MÉNDEZ MRN: [id number] date: 1975 Sex: F Assigned Patient Location: Current Patient Location: Accession/Order Number: [id number] Exam Date: 11/12/2023 10:40 Report Date: 11/12/2023 12:16 At the request of: BECKY TORRES Procedure: VC INJ Foam Sclerosant WUS CENTERLESS GRINDER PROCEDURE: VC INJ Foam Sclerosant WUS CENTERLESS GRINDER HISTORY: Pain due to varicose veins of bilateral legs I83.813 Pre-operative Diagnosis: CEAP class C3 venous insufficiency with pain, tenderness, edema and incompetent branch saphenous vein(s), chronic venous insufficiency right leg secondary to venous incompetence Post-operative Diagnosis: CEAP class C3 venous insufficiency with pain, tenderness, edema and incompetent branch saphenous vein(s), chronic venous insufficiency right leg secondary to venous incompetence Procedure Performed: 1. Ultrasound-guided microfoam chemical ablation with Varithenaregistered 2. Intraoperative ultrasound guidance Physician: Kyle Dick M.D. Anesthesia: None Indications for Procedure: 48 year old female. Symptoms including lower extremity pain, swelling, dilated bulging veins for many years despite conservative medical therapy including medical compression stockings, exercise and analgesics. Prior procedures include endovenous laser ablation and microfoam chemical ablation. Multiple incompetent varicosities of the right leg. Duplex scan showed reflux and enlarged diameters up to 5 mm. The patient underwent informed consent including management options where the complications of infection, bleeding, pain, and skin injury were discussed. Particular attention was spent discussing thrombus extension and deep vein thrombosis as well as the possibility of pulmonary embolus and treatment with oral or injectable blood thinners. Procedure: The patient walked to the procedure room. All applicable staff donned appropriate apparel. A procedure timeout was performed to confirm correct patient, correct extremity, correct procedure, and correct room set-up including presence of all applicable supplies, devices, and drugs. A duplex ultrasound, performed by myself confirmed the location and incompetence of branch saphenous varicosities and their course was marked on the skin together with the dilated tributaries. The extent of treatment of the vein and the associated varicosities was determined through ultrasound mapping. The skin was prepped and then punctured with a butterfly needle and advanced under ultrasound guidance. The Varithenaregistered canister was activated and the canister was primed and purged as required in the instructions for use. Varithenaregistered was drawn into a sterile syringe. Varithenaregistered was slowly administered at 0.5-1.0 cc/second with close observation by ultrasound of its course in the vessels. Total volume utilized was: 11 mL (4 mL into a 4 mm varicosity medial lower right leg; 4 mL into a 5 mm varicosity distal medial lower right leg; 3 mL was also placed into a 5 mm varicosity of the anterior proximal left thigh). Following administration of Varithenaregistered the leg was elevated and the patient was asked to repeatedly dorsiflex the ankle to limit flow of Varithenaregistered into perforating veins. Once appropriate spasm had been confirmed in the treated veins, the vascular catheter was removed from the leg and light pressure was applied over the puncture site for hemostasis. The common femoral and deep superficial veins were then evaluated for flow and compressibility prior to dressing placement. The lower extremity was kept elevated at 45 degrees above the horizontal and cording material was applied over the saphenous segments and tributaries to allow for eccentric compression over the target vessels including the targeted saphenous vein(s). A multilayer dressing was applied consisting of foam pads, coban and thigh-high 20-30 mm Hg compression elastic support hose were placed on the patient. The leg was lowered only after compression had been applied and the patient was immediately ambulatory. The patient ambulated 10 minutes under supervision and was without apparent concerns at time of release. Post-care instructions include advising patient to keep post-treatment bandages in place and dry for 48 hours, avoid extended periods of inactivity, avoid heavy exercise for one week, wear compression stockings on the treated leg continuously for two weeks, to walk daily for 10 minutes over the next month. The patient was instructed to take an anti-inflammatory medicine as needed and to follow up for color duplex scan of the Saphenous veins, the treated branch saphenous varicosities, the adjacent deep veins, and additional treatment within 7 days. PERSONNEL: Claire Navas RN and Kade White RN Electronically authenticated by: KYLE DICK Date: 11/12/2023 12:16
--- OUTSIDE RECORDS SUMMARY | 2023-11-12 10:37 | XMS_ITS | CCD ---
Author Name Unknown Address [address] [facility] [address] [place] [address] Organization [facility] Care Team Providers Care Financial Services Assistant Name Role Phone MAEVE CARDENAS Unavailable Unavailable [...] Unavailable MD Mic Bowen Primary Care Provider [phone] MD Debi Mares Attending Provider MIC BOWEN. Admitting Unavailable MIC BOWEN. Primary Care Unavailable IMC BOWEN. Attending Unavailable MIC BOWEN. Primary Care Unavailable MIC BOWEN. Admitting Unavailable MIC BOWEN. Attending Unavailable MIC OBWEN. Admitting Unavailable MIC BOWEN. Primary Care Unavailable MIC BOWEN. Attending Unavailable MIC BOWEN. Admitting Unavailable MIC BOWEN. Primary Care Unavailable MIC BOWEN. Attending Unavailable Cooper Hardwick MD Primary Care Provider Cooper Hardwick MD Primary Care Provider AMANDA CLEMONS Referring Unavailable AMANDA CLEMONS Attending Unavailable MIC BOWEN Attending Unavailable MD Mic Bowen Primary Care Provider MD Suzan Imsanthosh Attending Provider [phone] Asaad, Imad Admitting Unavailable Mic Bowen Primary [...] to drug (disorder) [facility] Repository (3 sources) Escitalopram Drug Allergy 3 [facility] Healthcare (3 sources) Latex Propensity to adverse reactions 7 [facility] Medications Current Medications Medication Drug Class(es) Dates Sig (Normalized) Sig (Original) cholecalciferol 0.125 mg oral tablet (12 sources) Vitamin D Start: 08-18-2022 take 1 tablet by mouth once daily Cholecalciferol (Vitamin D3) (Vitamin D3) 125 mcg (5,000 unit) Tablet Active 90006 UNIT PO Daily August 18, 2022 12:00am take 2 capsules by m outh every twenty-four hours Vitamin D3 1.25 MG (95207 UT) 2 capsules Orally Daily Active ciprofloxacin [...] Daily August 31, 2023 12:00am Thyroid (Pork) ([place] Thyroid) 60 mg Tablet (3 sources) Start: 8 take 1 tablet by mouth twice daily Thyroid (Pork) ([place] Thyroid) 60 mg Tablet Active 60 MG PO Twice daily November 16, 2017 12:00am thyroid (intermediate) 60 mg oral tablet (12 sources) Start: 8 End: 4 take 1 tablet by mouth in the morning thyroid ([place] Thyroid) 60 MG tablet Indications: Sick-euthyroid syndrome [...] by mouth every six hours Hydrocodone-Acetami nophen ([place]) 5-325 mg tablet Discontinued 1 - 2 [...] morning. 28 tablet 09/06/2023 09/05/2024 Active Multivit 62-Bupd-Zqhmhm 1-Dha (Pnv-Dha) 27 mg iron-1 mg -300 mg Capsule (5 sources) Start: 11-16-2017 End: 08-18-2022 take 1 capsule by mouth once daily Multivit 34-Nxhu-Ecpest 1-Dha (Pnv-Dha) 27 mg iron-1 mg -300 [...] Range Facility CT abdomen pelvis w [facility] CT abdomen pelvis w [facility] [place] [address] [place] [address] CT Scan Report Signed Patient: Eb De La Torre MR#: [id number] [birth year] : 1975 Acct:[id number] Age/Sex: 48 / F ADM Date: 11/09/23 Loc: CT Room: Type: [facility] Attending Dr: Debi Mares MD Copies to: [...] Lilia Thompson M.D.11/09/2023 5:17 PM Dictation Location: [place] [address] Transcribed By: [facility] 11/09/231716 Dictated By: Ana Lilia Thompson MD 11/09/231709 Signed By: 11/09/231716 [facility] Laboratory - Cytologyon 10-22 Side Splitter Cyto stain Nom (Cvx/Vag) [ID] [facility] Comment on above: KMB, CT(ASCP) CT scr eening location: [facility], [address] [place] [address], [place] [address]. Cytology study comment Cyto stain Reza (Cvx/Vag) [Interp] [facility] Comment on above: This Pap test has be en evaluated with computer assisted technology. Microscopic observation Cyto stain Nom (Cvx) [facility] Comment on above: Cytology Results: Ne gative for intraepithelial lesion or malignancy. Specimen source Cyto stain Nom (Cvx/Vag) [facility] Comment on above: None given Statement of adequacy Cyto stain (Cvx/Vag) [Interp] [facility] Comment on above: Satisfactory for yoseph luation. Endocervical/transformation zone component absent. Laboratory - Microbiology an d Antimicrobial susceptibilityon 11-03-2023 HPV E6+E7 mRNA [place]+probe Ql (Cvx) Not detected Not Detected [facility] Comment on above: Methodology: Transcr iption-Mediated Amplification This assay detects E6/E7 viral messenger RNA (mRNA) from 14 high-risk HPV types (16,18,31,33,35,39,45,51,52,56,58,59,66,68). Cervical sources are required for HPV testing. If a vaginal source from a patient who has had a total hysterectomy with removal of cervix was submitted, please contact the testing laboratory for alternative testing options. For additional information, please refer to http://education.[employer]/faq/DOC398y3 (This link if provided for information/ educational purposes only.) No Panel Informationon 11-03 (ALWAYS MESSAGE) [facility] Comment on above: EXPLANATORY NOTE: The Pap [...] historic and current clinical information. Clinical information [facility] Comment on above: None given Date of previous biopsy [facility] Comment on above: NONE GIVEN Date of previous PAP smear [facility] Comment on above: NONE GIVEN Last menstrual period start date [facility] Comment on above: NONE GIVEN Performing Organizat ion Information Site ID: [id number] Name: [facility] Address: [address] [place] [address], [address] [place] [phone] Director: Bryce Artis MD Formerly [facility] BI MAMMOGRAM SCREENING TOMOS YNTHESIS BILATERALon [...] IS VERY IMPORTANT TO YOUR HEALTH. THE TOGOLESE CANCER SOCIETY GUIDELINES RECOMMEND THAT WOMEN 40 [...] emptying studyon 10-26-2023 NM gastric emptying study [facility] [address] Nuclear Medicine Report Signed Patient: Eb De La Torre MR#: [id number] [birth year] : 1975 Acct:[id number] Age/Sex: 48 / F ADM Date: 10/26/23 Loc: [place] Room: Type: [facility] Attending Dr: Debi Mares MD Copies to: [...] Lilia Thompson M.D.10/26/2023 12:42 PM Dictation Location: [place] [address] Transcribed By: [facility] 10/26/23 124 Dictated By: Ana Lilia Thompson MD 10/26/23 0921 Signed By: 10/26/23 124 Normal [facility] HCG ( test) IA.josei d Ql (U)Ordered By: Debi Mares on 08-31-2023 HCG ( test) Ql (U) Negative [facility] HCG,Urineon 08-31-2023 Beta HCG ( test) Ql (U) Negative [facility] Comment on above: Result Comment: PERF ORMED BY: [place] [address] PATHOLOGIST CLIENT SERVICES ANALYST RIZWANA NEGRO M.D. Performed By: #### U HCG #### [address] 08-31-2023 L ----- Specimen: [id number] Received: 08/31/23 Status: ENOC Reggie Num: [id number] Spec Type: Surgical Subm Dr: Debi Mares MD Tissues: A Duodenum - Biopsy (DUOD) B GASTRIC FOR HP (GASTRIC HP) Procedures: HE/4, Gross/Micro L4/2, H PYLORI Age/ Patient Sex Location Account Attending Physician Eb De La Torre 48/F [id number] Debi Mares MD SPEC NUM: [id number] RECD: 08/31/23 STATUS: ENOC PAREDES NUM: [id number] RICKY: 08/31/23 [facility] DR: Debi Mares MD ENTERED: 08/31/23 [facility] DR: DELMAR TYPE: Surgical DEPT: S ENTERED BY: [id number] RECV BY: [id number] ORDERED: HE/4, Gross/Micro L4/2, H PYLORI ORDERED: [...] submitted in one cassette labeled A1. Specimen: [id number] Received: 08/31/23 Status: ENOC Paredes Num: [id number] Spec Type: Surgical Subm Dr: Debi Mares MD Tissues: A Duodenum - Biopsy (DUOD) B GASTRIC FOR HP (GASTRIC HP) Procedures: HE/4, Gross/Micro L4/2, H PYLORI Patient: Eb De La Torre [id number] (Continued) Specimen: [id number] Received: 08/31/23 (Continued) Gross Description (Continued) Signed (signature on file) Christine Snyder MD 09/01/23 1731 Specimen: [id number] Received: 08/31/23 Status: ENOC Paredes Num: [id number] Spec Type: Surgical Subm Dr: Debi Mares MD Tissues: A Duodenum - Biopsy (DUOD) B GASTRIC FOR HP (GASTRIC HP) Procedures: HE/4, Gross/Micro L4/2, H PYLORI Patient: Terence De La Torren Theodore [id number] (Continued) Specimen: [id number] Received: 08/31/23 (Continued) Gross Description (Continued) B. Received in formalin labeled with the patient's name, date of and gastric biopsy is one mckinney tissue measuring 0.3 cm. Entirely submitted in one cassette labeled B1. Microscopic Description A. Two H E slides reviewed. The microscopic examination confirms the diagnosis. B. Two H E slides reviewed. The microscopic examination confirms the diagnosis. CPT Codes 58659m5, 63772 x 1 Specimen: [id number] Received: 08/31/23 Status: ENOC Paredes Num: [id number] Spec Type: Surgical Subm Dr: Debi Mares MD Tissues: A Duodenum - Biopsy (DUOD) B GASTRIC FOR HP (GASTRIC HP) Procedures: HE/4, Gross/Micro L4/2, H PYLORI Patient: Eb De La Torre [id number] (Continued) Signed (signature on file) Christine Snyder MD 09/01/23 7571 [facility] Reverse T3 LCon 08-12-2023 Reverse T3 LC 12.5 ng/dL Invalid Interpretation Code 9.2-24.1 [facility] Comment on above: Result Comment: This test was developed and its performance characteristics determined by [facility]. It has not been cleared or approved by the Food and Drug Administration. Performed At: [address] [id number] Michelet Barnes MD Ph:[phone] Performed By: #### 1 [id number] #### [facility] (DEFAULT) [address] [place] [address] US abdomen limitedon 023 US abdomen limited [facility] [place] [address] [place] [address] Ultrasound Report Signed Patient: Eb De La Torre MR#: [id number] [birth year] : 1975 Acct:[id number] Age/Sex: 48 / F ADM Date: 08/10/23 Loc: Room: Type: [facility] Attending Dr: Debi Mares MD Ordering Provider: [...] Farley Jr., D.OJames08/10/2023 12:44 PM Dictation Location: [place] [address] Tech: Brittney Otoole Transcribed By: [facility] 08/10/23 1244 Dictated By: Jian Farley Jr, DO 08/10/23 124 Signed By: 08/10/23 1244 [facility] Coding Summaryon 08-07-2023 Coding Summary HTMLBase 64 XrsxlmcnFVp6jVe+PGhlYWQ+P A5KFTOwH97uqGRqkI7oY3TWVW lOSywgQVBQTElOSyIgbmFtZT1 kaXNjZXJu IC8+RW1bUYLhXqoiwCIno1I5s FS1J90rki3fPJploCX0EDDsVa Krrghlr1zkxMn7HXprVwlmThJ t HATqdY85RSN2kP72Xh83vUKjl RYed8kmtHm0CjBkLXNmNPX6cO pgWYxfa6VcSGXzM70lhCEsq1F 6 ZMKidMduzOLdUfOsrPJ6aV3cS Onajowcz2lkizpyUsl8ep08dP Plg1D0qPK1N8KonqP5WXDnpND g HuhycZJBbG1aspjbh5yjxqudV dLcLEFyTNv3PAy7OKKclYblZf KjAC52BHY2FZZofrHbQ7HwQGO s yAfbLtS8i6S0Jz0YF9QWQksjU 1VNTUFSWTwvdGQ+JM01eo48Y3 XiCdzqPrq8THUlQKH7zEK8qK1 n LCQnPSjpv9G0uKE7L1WrjyQvl m4lp4ifBYStJCxpK99nfHCgc5 H0UIYetPU8MUGoyDtzJlJjmE5 3 Oyc+YZUalRxaa4WwDdthn0nfn 5uzxXy0RfsmCUUpciJjyLceXR Q7u7XrIl6bAFFurRI8qKN4kB3 i YcVhJfG2PLomP478ZzNmvRHgA kvfT16eZ0RviXL+MXDzWfq0VT SmrFylMG9yS2IhYJGcapwyqCN m aNbtDD2pGGRaiqvfKFAkrS5eH BHiX9x5MoJnCsK8CQqbT7JpEG XrhhcjIr33fV8iOaRqWeX8UYg u U2UipeO3CVDyoCUcETzcZIP1U 84jy2R1VJRxPWWiZEE7dZV7rZ 1hbGlnbjogbGVmdDsgdmVydGl j CVinINnqN360AXBslXdhQyFyF GluZyBEYXRlOiAgMTEvMTcvMj AyMzwvdGQ+HSBvBWO2hYlkFZC n iYQgEAmcRb0yaLhrdCfgJZ5iO KEjtnhnSANxpI4gHMDqjTSckX dwVA6wOBPqfsgth661XeRnMFV 0 IWPypSNiK6GptQ5vBmHmGSEjK OMkZ3MoiIZtPQmyA579PRexLi C4ROYlflAcK0PlRHXxmVisZcK 0 l8M7Af1Pr3YikuzlA2LknJBuL bUeVbkhFRp2S8EwImkrsHT+PC 69JCBeSB58MFf1FPX2hMnjOYo i DJUaS9WokK5qGrDnXVDqWCYaZ yc+PHRhYmxlIHdpZHRoPScxMD AjYvZglVllEC0hTo5sNHUjBHI v bWiarXDfEoNrt6gwEZGgQSxfK I3ouZymS8ZwvPE4VMLue4b2Gp 28F71hH9XtaII+NPFlmXP4nXY 0 qE6aIwRwRcN6FHepM884MxNvs UUfHbbnl7ohp1nmgLk0PsV4XI SjldMqoEoqXGO6u8IpCp23S34 s IHdpZHRoPSIxNSUiIHZhbGlnb p5maN4vKw6+LSThzEG4sZJ2uT 2pRaIiDtZ1TAdlV637UdLxcUT v Xewnr6exj4xwmEe2RxSeHUUgq iGutXdjSUA6y1UtXl03H6SfmY gkl8EbTtu4yi67kHUfx3S8uLD 9 L2OwZUKrlmpxqWFdxYcpNY6wR TEwmahfFMMyjM1zRXGwJ5b1Iu BeMhN4JFnhL9MsxpR1FAIpaOP g DDWxwASMzP8rqdkwh8lfdyegA hEaQNNkNFm4ROe2HZBvbKnuHa AwIQJ4CfK5CNH7zKDwyR5csLe n basjcG1dQxl+MPI7xQXshSLMK M1nBdcyfEV+ZSFvAUQ0yRauTG qtEEPkaY0iBLRoC2o9FhVlTgJ 1 YXhsK5EfehC5JMNgaKXiWCUja UAGsT8ebhhlp9tynhypQkFrOO LeUBg4IOp1ROJttRjqEwVuFTT 0 BgO1NUG7zGQvpV3mcVjvjdjfl G9wOyc+XydjjVjwHOM1DAq0B3 JkKxb2MPEciUvgNU5hjZIiQTd u Mq5xsYbtvDljDJ8lEEQdsymxb 961LpMns4gnXLFdeBZsXBucVR J3B94bn6M2TGOcYSRfNAI0pPO 4 dM6thYzwycjbsQNjnFdrhzYaw SecMFkwRUgeD012CHDihMwoXo QiMPr5S8UkQvb4BDYixLioTV6 n qGIjAMigZn9unNwffYsxAI8hG ZXhsgpso813SaAug2sxFXErxN MtUWguAAA1A80ze1O1LKPkQRH w KSU3yQB0dL1fxJglzistzDOsl QwnorSfwBtaSBxfWCqgV124XI BeuVxwQnRblQa8A5DlNyc2BGZ z vGskRE0hrATvOXpwQb3yfCfyu XqzWM2yXVTmgkecb745FvJey1 goEHSoyQHpCDdvRDT3F64pq9Z 6 IPScKNDgNHM3zFQ9eI1srTfyp jogbGVmdDsgdmVydGljYWwtYW bmQ632HJUxhVkgBaXqlBxgizY g FRpvIKv4O0FvNwwcyAV+PC90Y KRaKB89eOCifUYcx6olvSo1Tp TmJYKiMJN8qXdgWLqqg3XdMFG t K04fbCTxb3U3HQEbvTaewCNeP hRdaGX0fW0kVZoqjxkwo1ziky clMbzkw1sxkb01kL97N10cQVz p YZJmLDJvMHHhJLErbGbmsk0yt G9wIi8+UNUskDY5cTW0lA1sHP ZyIdZ2AOasI824PrLunTOkJzb j d9yuf6gmbVa4YiA7BRFwhpIcq ZvzNPD5g4YrNp04G51iISebQK HyDJGxLMShFVXmqBiwjt4ptM8 w Ii8+ZXRxaPM0mNL2yH8iDjAcO gM5OKmhS561OiGnfLMzRzvmW6 5rO1ObjXA+KZGnIzw0PIOppHo s QC0xoEWhFIbvHr3kHFH6PjOlD pOzBRyhY9UoKXFodjvhpvhdsW M7DFWqAXVuzX40Hf5xmDuqLYV w lPJWmV0bzeplc4frryunMjGuJ NVeOKj3LSk9AXJglMxuQuPkTE M5VvT3KAN1iOXrkW7qrSwuclv g yX9wE3VtBHRdqdsiRd37iL1xB kJyJhC7QNhbWeu+CjMFUo4vPb LKYYMnQWeIJ8cERpDEAK16KM7 8 tBAwc8I9iKC8N7KsTMFdlwupd ycxpJD3PULbPWZkiF09dCHzXV cfJc8jc6P4u423VRCfMBZreF3 7 Yr0pkUftPSHytFGPwR9urkqlf 5xsmosnIrOpQDJiZCl9RVf4DV AvbRmrFqQmUDQ6KnE7OPR2eEO h rU5ciOudnfufyB7dDvi+MTAvM RSpZCo6OrafqNC+KYZmJGG2uY vpONicZSXrgK1iIHOtH2i4GlB w EhR3ILyfC7NuQUHctotnTj68u O7dJzSnTmC9CYocJ0SaibJ5MM HrdWNxVMvxDVC8B32va0T7EEK w FSHrZWP1kMV0jA3yyOjheczlq GVmdDsgdmVydGljYWwtYWxpZ2 17GAKafQjmSbF8DAumJODlZE4 0 OR59dKUik1I6mLG6G4JlFFYnv tohswazwGQ7KOHqWAZbwC23yG KcDMtwMy9sk1R8m028ARTcZVB w bU20Qz0kcSksMZElaKHTvF8ij vcet4uygaujImIyTVDaJXk7ZP x4EZIkePzkUfAuVMF9UvQ9FMW 0 lVZscX0dtCwsbormlT8xQzq+R oNVQSoCDO94RS69rQQvc0S2bC H9Z2VrGAGmkzfgucmmfMJ5DWS u QCFnmA55hNDfKDrdDf7hv4V4u 291AVBdBIYjgC96Ql4ccCrmNK PaiUVBoM8fefhtt7ocobztMdR w VIEgHGo3QQr4EJJsuTbcSmAzL TI6GuK2XUZ6aIYbxS9anZdxur mzcY0nBih+I0O1P6KrWwvmdTC + JE55HXXwGK17xEBfsGYws2fcx Be3DcCdYXToULC5fUpnPEwym9 UeEDKfU93nbLSfa3B3XKMvvVc h nZUkSoJofOL7kC8hFUximpzcj 4wdhqrnSnxrz3grdg78zR17W7 9sIHdpZHRoPSIzMCUiIHZhbGl n qm0afL0jKm1+XBReyMB1mHK1a T4fDdHmNqG8XTesT780XaKtcN CkFawna5doc9qjuQz6BcSxYOU g ulKrbIvbUII7s4HsRf54J43sT HdpZHRoPSIyMCUiIHZhbGlnbj 2ryS4bNn1+CQ4ip4thpv03uZ0 8 dHI+XTUuWGV0vDagQKboZBPfb F8iETqcPpQ5IAFoYwPtoJ93cE BbAVccPl2eeWmtqVpqKV8uDGN p oaqti756ZpJhk5cqCZVjoFUdC ZikDRN8Y90az6L4HROeYFPbAH S2tTM1vT4haQatfthbxURhyOf g nqTpaUlgGFbzALreN511NGVub HkeBhRufIZsK0lwluPIFX8nNd wvdGQ+NYDmEHX5bAxdJRwcRBL k sV8hWQZzH4n6OoImLtD5MGclG 9SpcmJ1QYSobYYtBXPttRBVrW 2mozfpy5psqpdqOpEvZKViYKl 0 KTf3YQRclJloSuOxQIM0GwH2S HI2tDLfpG5nmCuyaxjrrS9kTv c+RklOOjwvdGQ+DEOgHJL4oJp l JGxhMISbvB6eUTOcQ9l3YvZkJ kF9SJbvD4FtksV9GTVwxSLzSM UeoVROxE9nmkmet0mohcdcXeB w EKRdDJn7KVe3STJymHtlDhPuN OG3JvX2VJO2lDGmfO4qhQhfvl yhyL3wXxf+TVJOOjwvdGQ+PHR k HWG7kStlIArlDTTzzH5nQIBwL 8j1GpBnQfT3BZdpB8FcxtN3KR TrtJRuLBXxlMIKdA9nmpvus5i v bpzqCdMjBEQaLRt5RNs7TPIkh QdkXeIqETV1EyO3KSX0iHVcwC 2ylEyimjissG7wJuq+OJV3IKB 6 YR19JQ40G6IeEqahoATtbHG+P HRhYmxlIHdpZHRoPScxMDAlJy ZcpUelWQ5wEj4iVKYaAWZlyEg h cHN (more content not included)... Normal [facility] T3 Free LCon 08-07-2023 Triiodothyronine,Fr ee,Serum LC 3.5 pg/mL Invalid Interpretation Code 2.0-4.4 [facility] Comment on above: Result Comment: Perf ormed At: [email or web address] [id number] Yumiko Sheppard PhD Ph:[phone] Performed By: #### 1 [id number] #### [facility] (DEFAULT) [address] [place] [address] T3 Total LCon 08-07-2023 Triiodothyronine (T3) LC 159 ng/dL Invalid Interpretation Code 71-180 [facility] Comment on above: Result Comment: Perf ormed At: [employer] [id number] Yumiko Sheppard PhD Ph:[phone] Performed By: #### 1 [id number] #### [facility] (DEFAULT) [address] [place] [id number] Free T4on 08-06-2023 Free T4 [Mass/Vol] 0.55 ng/dL Low 0.61-1.12 [facility] Comment on above: Performed By: #### 1 [id number] #### [facility] (DEFAULT) [address] [place] [address] Provider Orderson 08-06-2023 Provider Orders [id number] FF Normal [facility] Coding Summaryon 05-06-2023 Coding Summary [facility] LulmobgeFJl0dGu+PGhlYWQ+P I8SSVIaE50mjBFpjY8qA1ASHK lOSywgQVBQTElOSyIgbmFtZT1 kaXNjZXJu IC8+MB7uPDZaUubmmIQil1D6j YF5R52jak9pZTyxbXJ9WKGwYo Oelrigi8oguHs5ZLrhAspnSyM t GQUveP81XYC9bA09Om48cLKqy QKhq3bqyWt4RgJbGRFyJUC0xG roFYqkg8VxZSOgC51izCApi0W 6 DKLmkZovxUIxHzQalHQ1hF9pQ Mkojgnzj8lnyzbvDqq7ni09nE Ufy4Z5gNE4E4SewvL2VDLswZU g RwhjrVCFqA5ahakli4apbfncU hBpDVCdMQl3SQl9XHLncJbjJs QrMC20ZDC5AHKdlhNdK2VwJFD s tCmsHmF3m3A7Pt4TC4WNJoijQ 1VNTUFSWTwvdGQ+FL74mt91V1 JdHncmExf8SAKoSPK5nYS3dQ4 n HWLuRWfth3L4aRX2O1BcdiTep e2ny0tjPRWeYBtoT49dwKSxz2 R2BRUebWJ8ISMvtJogUoJlxA2 3 Oyc+BSYxuGevo3BaRiwbx3eyc 4vseMs0JufuIDFmvmAvdTfgLG C1e3BjUy5oZMLsyKI6nKJ5oK8 i GiBxKqE3XEroO348VrMltRBzU cpdD59mX9DyeEC+OQLbWfs0BX OxqMhxJA5qX0KnQJWisdjkyNL m qXnuPM0iLBNunujmDZHxrC2jA WQsU7l7OuLbXlR7RLraT1FcGL NqmqbnBh22uY5cKnVcDuU1VVw u J8UhzeT6FTVgfMGlCXcrNJZ1Z 97ee8K1KXKbCZTlNAR7tKB2zP 1hbGlnbjogbGVmdDsgdmVydGl j GRvfCQkrT353BXHcrRcpBkCtS GluZyBEYXRlOiAgMDgvMTYvMj AyMzwvdGQ+XMKnWOK1mBrxNFV n ySEnSDxyAn1ajMbitQreFM4sS IWedgxoYBOoiD4fVRWctPKzhQ ufPV1hWUMheznjb018LcQfGUQ 0 AFUefDOnJ6XgiV9uDjGgGJXiC NZmI2GvkCAiBQlcN126TOliQz R0JEWbwxKqJ1GqSITvnUmuTyT 0 z0I0Ff2Jx8ZxadbuU4BtlSReC lWwIulbDLq6U3AjStfygYU+PC 52QCXoCV67KKk5JQS6iVtlOOi i YYZuM7LupB9fPkDeXZAePLRtU yc+PHRhYmxlIHdpZHRoPScxMD KzIvTaxUbqRB1nOx6iDAQiLNQ v iAonwLErYtArw4jiPAHqPBhnP B5jfLfyY9OseMT5LYVyi2t5Qd 43I75mX8YrsSK+NPDmkLG6zWB 0 pZ5pVjIwQjP7EInpF024PbClj QTxZtuci7kdt2xofJh8FoD3FM LhcfEweSmbONY8s8GsPx02R34 s IHdpZHRoPSIxNSUiIHZhbGlnb q0bcO9lPz1+ZJOdeNP2uUW2hY 9oIzBoAyT9AVshA204ToLdmPU v Jnjwj3ehv5dodQo9AbRzDJJmp mXdlPqpXFV7x9LpDq66C4JweY jqp7UmSlu6ab35xRXom5J3gCK 9 R7NpJQXyopdmkGWxuTwfPZ5kO VMiybnqWCDzwM4xPOAsX5x8Hp AnQwI5XRkcN3IapcV7YCIbfVD g BTChnHLSsV8wftbux9pvbkjuD uUlLALxXQg9LUp9ZGCdmLnmOf ZaTSX4EeN4VGY8bEDrgU2duVg n pllgqS6iUpa+XLE1rZLuvZXNO U1nQdaudRU+KOSsVHL3tXciIU xtRWWhrE5iWSQoP5w9QaXsRfB 1 NZxcU5LmfiW4USTecLTzGIPyw LCLjR8nwzhks2hycrixPpVgOJ OjVVy5AMu8GZZjoTtfSrQuYHT 0 IqN2IAN5fHZdvK5kfYvnugaaj G9wOyc+UrdunBmdJDT3BXj5E7 QcLec9QIZdjVaxJL5asLGeCZm u Ei4mcEqnpTsaFX4jERIawxudy 352IzAey5lsWUYsfLXgJEceKW V8P60bu4I9LNEpSBQpJKI0mCJ 4 nM2siRjececeaQUnbJferkMkv TjtPAtuUSfyA430IQCxwCwvNk YsHTy6C4KvXbh2UOGvvYdlXL2 n jUIsJHemMf7eoUoftQnxOA3gW ODuqshii055RxZgi4gyZWIusA GrUDxtAXQ1P12wj7Z3BLIwCIZ w IBJ0mKA5mT3egErlelrzaATxx AovfqJqiUbeDVtrMEzbD772ND AmqEkgXsAueSt0F0KxEak7DYZ z iLzbSX2jsPJfZKftDp6fmEfxw GqwNH2hSHEzbyxpx459ZsOsv0 exFDQhbSGuWAyiNVR2X69fz4G 6 OWPwGBLxRNY8hAO1lY4tdLczo jogbGVmdDsgdmVydGljYWwtYW upY052QQBvpTfdVzDywWmroqN g EEqpNCc9T2KlXfufwFZ+PC90Y AVuBW63vSLusVZjf2wkoQd9Gb AaZZDsLAO0zAxhYSllp8GxVUY t L40jnBHvj8T9URElxOkdeKWhK pHovHB9zX4jECshongel4jlsh zkIxmrm9okqr42eY32U41pLIs p XRAsONZvSCVdFNFiwYwimy3yu G9wIi8+XQUjpPX1gOR8nA1iWC UcRrF4TVyuH407AvEpsZQwDdn j g1ddf9qhxQd1QsL3QAUffgGnf RzvJJF0o0KlOe62U12iPZjwIT FzNVRnBMQdJYCvoPgbxe4ueN2 w Ii8+WSZqiIN9qHK7eV8lItJbS jA2MMmvL156ThCazIShAamjF4 7dF0UftSR+OXLcNty9ABGczQe s JX2rzNVnHTuvWc4zTUI6OnWiP vWsFCqmW3ZuGRUdkiljtqdweH K1USVoVEAosG92Ik3jpLfiCVK w nXKUsJ7xbgolm9voluquOcBrN OFxMRv0BYh4MMVlvUldHzOwWQ T4YzH5CMM2fFRieN2kkCcdews g sB8dA8AyREMetnimLx04bC4kV uKjXvU9ZJgaXaa+EfNNEd9eUd OQALLtFJlPW9zDWsYITQ79LJ2 8 kADub8G3vDL4O3JiGZKshnayl gfoyKY5IRTkFUVyiO90gHDxDQ daVe5dk7X2k780QPBpBNWgsC4 7 Eq1xdZvwEMNstUUFaB0vrefgk 3yuvqrhRrEuSUJgXPw9DHt0HK QxxOooBvUnKKO0RqL4TEU8xVU h oY2bfDjxxwciiM2fMdp+MTAvM DUlIHh9MhzgwNH+BDNcAIC4nP dbJCajAXMhcL7vYICcJ9b1LaV w WaW1ZBvwS2AsCIDwvfcnGt91a E2aMgSzQgC4JXgoX7QnsjH5AR BgkPHkSDhcTHK3Y48we7J7PXM w YLPfXGU0kPI0kX8sfXqqubpgq GVmdDsgdmVydGljYWwtYWxpZ2 12HXBgqAjwYwD9BEbpPPHeGX7 0 HP10hWQcw6L8oVR3W6QuLMQwt lacziukxVH9STUcDZBtcQ75qC AuWFiwAk8mc9Y3l545RFAlJMO w iB06Uw2qbTriZIBbqJTTzI5wo doaj1jtbyxiZnAtPLDkHUo2BE m4VBMooXneSrLlWYL2ClB5CIV 0 yDGasZ6ubNjjyirmcC5qNrt+R yZQBWmYFN90QK00lNHwq4H6pW V7Y7LxLYZxsqasqxkxjKM9SCI u ZCOosK58bNXyURxsHi7nw2D5z 698UUZkRGZfgK19Ta7fvMntQX HpgZVVyW4nwpitm5uhcdkiHdF w HBThCVb6OSx0TRYqsOzlKfOkO ZF8TeT5UFL9fBLywM2phDdurw jxkG1zGla+I4W7X2CaGeemtZT + DP62NWGyFU68zBOqgCGtb1vhv Vh0CdMaHWSrSTM7vWppQOmqp8 MvJDOkA31fxEPgl5R6WWZtzFw h sHHhYqIqdRF5uR1iGFiacssvh 8hgfcdxZvvke9edbn01rB06S5 9sIHdpZHRoPSIzMCUiIHZhbGl n ok9xaQ6bKy3+TUYkqRI7aLL4w L1iYiZnAzE0OSugZ950AbPtyZ WiHmtdg5yxb8qzpYw2YuYtKOL g yqXjwVbuMAY3h6XfZg05W72bI HdpZHRoPSIyMCUiIHZhbGlnbj 9jqT1eHt2+PX2vh1qjwi39xE9 8 dHI+FRKiVKN0cCplEIxpSSCgr Y1gSExcWcR3PBDlEzWutB86rN RnTYqnRo4zyDyieUwdZH9qCFU p pndwy439CeFvm1csPQVpvTKyK MsvHDL7B77ct9J5KIGqPZFvMJ T5jHZ6lX9khNjhbjhohTWzjTx g fvGvkOvtWSjrKNaiS231JJAax FqmFkDjsBHaI1rajjKJEO0uRz wvdGQ+BLCwAKW8qKllGWomUIR k rL3cZKYrR2b4KfNlCdF9JEgyY 0LsdaI5VRHhuFNfLWCgiDDZuL 2zbelkp6mtqrzaXdWlFWHmVSy 0 PLj6XJFrlDrwOlAxRLR9ArT3M WN1bPGtsE6yjGjipxskwM1gMn c+RklOOjwvdGQ+JOIzZQI0nSx l PEhjSFBkhG9rOGVfF9c7FfRyR nN4YFpjY6CkgtY5JIIkwQUiWJ RuaCDZqO2pxvgmn8qhcoawOxM w DUBmCBw4EBk0VNQjpUfzVpIxW YH9LiJ0GXK2hPVheK3hmZrklg tzkN6rBnu+TVJOOjwvdGQ+PHR k QQV3mLvcFMsfNMPakD3oEZUtN 2c9LdFnAhO0KHwtQ6PddyI3IC GrvCZjCKRrbMMKuT2leukqk3k v dfjxBgMnGKArTZb3RHu2BOEjl RdjLzIpTRK6HjM6WTP1rHHesA 7vqCuneeuonP4aVpj+ORU7CDR 6 PW13ZP42X9EjLfikeGBxpZZ+P HRhYmxlIHdpZHRoPScxMDAlJy SshWmySW0mNw9jAYYmWGQkjBw h cHN (more content not included)... Normal [facility] T3 Total LCon 05-06-2023 Triiodothyronine (T3) LC 141 ng/dL Invalid Interpretation Code 71-180 [facility] Comment on above: Result Comment: Perf ormed At: [facility] [address] [id number] Yumiko Sheppard PhD Ph:[phone] Performed By: #### 1 [id number] #### [facility] (DEFAULT) [address] [place] [address] Free T4on 05-05-2023 Free T4 [Mass/Vol] 0.52 ng/dL Low 0.61-1.12 [facility] Comment on above: Performed By: #### 1 [id number] #### [facility] (DEFAULT) [address] [place] [address] Provider Orderson 05-05-2023 Provider Orders [id number] IFF Normal [facility] TSHon 05-05-2023 TSH Qn 0.06 m[IU]/L Low 0.45-5.33 [facility] Comment on above: Performed By: #### 1 [id number] #### [facility] (DEFAULT) [address] [place] [address] Coding Summaryon 04-18-2023 Coding Summary [employer]Base 64 PplgucjiCDt9mUk+PGhlYWQ+P H6IAZUuJ94pdDUxjL4uL8CBPB lOSywgQVBQTElOSyIgbmFtZT1 kaXNjZXJu IC8+AJ2lPYIwWufcpCYff7F2d CL6U86agz4mDGknsEN2XGGkBr Mnrllzh0oqhRy5NTwgTcdcAcJ t MFFnzL37BDM5cK10Jh57vQVib MNsl0jqiJy4RtHgULApQEV6cI hdWLcao8WeLPKzI99ucTBon1J 6 TBZblWhtsNHzNrXulJX3kZ0iB Yrtewdrq2xdhmkhUdu2qf46qN Goq5M8jAN7E7IgahR8XLDmiNK g BqranYJNvG6mfptnk7nfbckzZ eVcXRUdIJu5GDb7EQOhzOxyTi VeBJ90NFJ4WNHfgwOgS8DeRXE s eDnpFtP5t9A1Po0IB5EEAcciF 1VNTUFSWTwvdGQ+JV38oz92C6 EfYefeXyu0ZTTiLLB2yOS4hH8 n KUMySBpry0O5yRI5S6FesdXju q0yz5ehRPAeYYnwV34izULmf8 Z1GCQvxWB6ZUKsrJmvLuYlcW1 3 Oyc+CLXxgUmfa1VnNfjoy3chf 4jdlKs6XildCDGbuoGunGnpQI Z4s9IzSa7zSJZmtFO8hKB9hY1 i UbPeXiJ5BTgoP037PzWeiZFdD fxfI59aI3JpiOS+LJNaLva2KL YqfKixNU9sK9ToXMDjbzazsAK m lPxpGO9uJTRgkzlmUEJfgS0vZ QHfN0g4JkIoEpL3RPzvK0JlKO AsyxvsHk79hV7wXiQqRbL2HBm u Q9MaooR4ERIrqTOeZBtzZQD5M 58lr4U3TFZuHQVmVBQ5cPP5xT 1hbGlnbjogbGVmdDsgdmVydGl j RZrxXZheH688BTFbjIqlTaHtU GluZyBEYXRlOiAgMDcvMjgvMj AyMzwvdGQ+MDFpNOE9fJlbYQE n nJTpZXgtIm2uwMerjGvwRD7qN DPogqlxVCBggK9dQRRjpMSofZ ljHW8xIWSmoyhxz627HiNgJMB 0 ABMdqNIbT9VbgI0qIqPcAIYpQ PSwE4QeoTVySFixM740AJtbGo H0VUDscbZaQ7BjIZHebIpnFoA 0 s9L7Qu4Aw3BcunwpL1CjlURjS kKwVlvoMDb3S3NsHujcpXT+PC 58LFVwHF67CAb3LPJ7iCsgMVl i KDJfW3FqvP7lVxGwTFUeENPhK yc+PHRhYmxlIHdpZHRoPScxMD CwUoAitTwwXJ8vTn3zKKDvYVL v lZhmhLGtLgUdj1axHEOcAWthM V7spAomP9HlaLA7LJHwi4f0Nv 88D79sM3CpoXK+LINeuMJ4uTT 0 eM9yYnVgWaJ7GXliO305DqBuj CEzSukwo5riu9ixiAi2JdN8DP ZaaiRwdJqzXOO4q4GtKg45S05 s IHdpZHRoPSIxNSUiIHZhbGlnb s1fdM7qEl7+PRIsvMK7pQV0jC 0bOcRtOrP0ZEtvS216CnOjvLL v Fdqxn4wja8btpKo1TcPgONZrg pFreNxeQQN1a5LnYm69H8DhaB hrt7HwJbz5iq65gFYhu5T4tET 9 W0AnTCPjrqbrsHJpzJrzAB3yM ALhskkkEDDwkC4fDHHyG2p1Dd XyRpF2JIegC0ZrjeA3CYNtgPW g RXWbaJUAhU3vylkuw9yxgwfsF bRdIXXwPAt9RPi3MNVagJtuCo PiZSN5RyV4EOZ0tJGowN4siBz n wkxpqB6vRln+HEL0gUHyeLQFU O3aWklacMA+VBMuTEF1gGrpVO wuKLMilF9xBEXiK4u4UpNuCwI 1 AIpeO0WtyzD4SBLzzOYmJOHgu RCWfP1ggsfqg7fxpldkIyPlDE LmODu1ZFq6VOEvzHuiSkIcWID 0 PcF0MQU0kTZceV1ucLningxsw G9wOyc+HjeolQoxSCP6LTf2O5 KvGvx7CBAthNrrRT6bhAEqOCw u Ut4qeFdhnTuvRS8dVGRmvmjov 159OxZoj7liBBSlsMPrQIdtGP N2M79nt0N4AYUxSHFrDHZ2fWP 4 gM2hzBfgdlnkmMQpaNvnwbCoj BdeYDqkUTtdW694VNKgoZaeHc NmCUl7Q7ZgIbp8HCCahDcaUG9 n qDTkBHprQd3fpCrtuEkoRE1mD TUedzfte016CiLja6bvXAGhvX BrKLzeCTS5N16om2Q9ZFHyUZD w PXP4wZN9aO9lsFuwwlcwdQIfp LlcjzYzrBcgVIxvZTziW960EH SqlJpkNlBdvBr8Q6TvFsv5DMV z mDquFU8zqNCjMJbtQd9kqXrlg WecKE3jPUUwakysu902LiOhp0 jyRMZtmBLpCPhbFGY6K42kz6G 6 LENaGGXaKCH6aPH7oB2jwOpsb jogbGVmdDsgdmVydGljYWwtYW rgK720BCAxrNhgQfHqbZypquQ g MJpxXAj3T5YfVbujyUD+PC90Y JSaLU97tEFltPUqi3jhwLi0Xr ZxAOCuWFC6aLmlAJilt3SmPXR t B04meNPbl1D9UKWhuSjrmPLqZ xMjsIA2yO2aWZaeegrjo7uohd fxUewwj5cbrw33vI25V83wYTt p XFCgJPDpIKAxZXElgSdcax5as G9wIi8+JBMwjHG2jGY6tY2uHT FuIfZ5BAlyA910NkOwtQNvFpr j i4waa1knwLp2AeF1AZBrblMur TdcWOV5n9AyWr49O66lRGnuFI RfQNNdOGImKHRntSfuxq8qaC3 w Ii8+PCFoxJT5kLG0qG5kFoKvS zD6HBicH680ArJhsQRoTqinW1 8lK6DiuTX+MBHsKrr6JYLiuPr s SR5uhOTyXMxdXf1pOGL0AnMoB iXhCNeyH1UyRMXyhpqshxhxkZ A0POZqRUPihF73Po9wbInlCVT w aPOLaK8vwjzmk0ilmbckJdJcB AZeTLt0JDw0WJIpcTdxNeQjPL O8ElQ2EZV6nBEukV6prZtdtgk g gE9zV1LpIBWvtezbMc32eX5sH aKqIeU1YYmhWxe+KtYDAb9qPc XXCYSuVVeSO6sRXuWVUG92UR6 8 aCPvz5D5iBM3O1GxMNLwmpcvu bqqmUU9ZZJeCCVwpK74iIQhVD rfIl5ld5Q9s631LGZzCEUsrT5 7 Ps8vuYnlKJKwkFRVpO8fiaecz 6bprqpyGtPsLOPxFHa8EAv8QS MuxAgrQhXwEUH9XgT2EYV1xKS h vL4bdVrzicnumS7vQlf+MTAvM RTbDYg4OtltfVV+EFHrQRZ0xU bvJZmwKRFwjG6cCNIyX5v8FiY w LfX1WGyjU9JhLWKljedlUe34y F8dPoSkKnR2QGpwW2MnusA7RC ZljDCmDRtrJGX7C04jg4Z5FVI w WBMjGIS9sRF2wH0mhQyqezucq GVmdDsgdmVydGljYWwtYWxpZ2 71MBVsbPgsQjX7KHutOQMjKY9 0 GR74dFXnw6L3kFB6C7PyEWWcg kuptwbipQH1XBGfKICbgY90bZ NcSKsjDo1do2T1p768COChVIW w fA11Qf9tlAjpNZBkdEYBwT8wr bmca2edczznPrEfGJAmYUz3JY b1XZCexHapErQyMMQ0EeM8YCI 0 aNGipU4teIiplbxpfZ4dYda+R kUBENoZPV86AM54mFHcs7R4pX K8O1IqRYZdnfyzpstyvOY6QFE u JTTlfM58oCDvHTsnMf8rg3P7g 294AUHlBNXzaP15Zq2iyHlnAW YyyLXHkB0hucoro3arkuakHmL w SNZrRLx0SSz8ZRJvjFutQwIlX XO7ItP9CDW2vNYxuF6pqUtxuv vxoN2gKub+B3D8U8ShNdwfzLW + GD73MMCjOL01zTMmuUCfp6omw Mx8WsSkRKVmKQW3qWytTJpvv7 QjPINpG77sfLVqs3I2GDZgrKh h tIZaEsVjoQT6eZ2cADaochorq 1rizqikLzbov8cstq89cC08T8 9sIHdpZHRoPSIzMCUiIHZhbGl n oa0mzY6hVw2+YDBzkEG8rQT2b K0vCxSgLwE8LGbvH266VeJpbJ XoNtjfp9ody6qpfSo2LxWyOWC g ijZvhAtdBZV3d1OkTi88C30lO HdpZHRoPSIyMCUiIHZhbGlnbj 6gvJ7wOk7+QD7lb8cbtu85dG1 8 dHI+WLMsMUZ5pOgcCXbeQZAip R6yWYcmGyK8SOGfVpNuuR71pR IeEFkxHw6lbIovbLeoKR8yBUC p lulue581NuCgq0tcWBDljLGnW FsdDYU9V08tz0K8BKNjIWWoDF Y3jFA5mS9quOknnwlrvLAddFi g ywQmiGdtPCwoBIdcR557TUWxf JwgMgNhrSEqK7desfIZGH5yEs wvdGQ+AXSwAXG7rWdtMDsoRJY k iA6lHYCbN3m9UvNmSvT8TNviF 8JbcdX4PYQcoRTlYEEzxEBRlT 1hunlyk4axggxqHdDzVCJqTEq 0 SOa0RUKviLlhJyEuOBL9AlF8O FE0nKJgrL7hnIpewschmU8oBx c+RklOOjwvdGQ+KQIeKCY5xUg l XWaqSBHibY3qUIZoX6l8XzMuY pB5PGdiS4RwlbC0XBZckBYdCK RpwOOUiW4khdwsl1kilfvbHhE w SXWdLGj8NUk0XVUvuYpaBzPiH CF5UvL9JFM0kSGciI7ciZksra sddT1pWeo+TVJOOjwvdGQ+PHR k IFL6cEexJVobYVBgbJ3yXPXsL 1q6PfYsNkW4MFfcR4HvjtN6KB HryPCvPYWaxPXYdZ9oqisog0k v josfHkUgHNCkEFa0QGs9COCfy BfhOhLiNTG5JaK5PIF3mANpvO 7bwTpeuwbgtD7tDuw+YAR8GXS 6 ET87XQ38F8DoKntnoCQhkFJ+P HRhYmxlIHdpZHRoPScxMDAlJy CwyCfjEL6hBr7dBPJlWIJocWx h cHN (more content not included)... [facility] T3 Free LCon 07-26-2023 Triiodothyronine,Fr ee,Serum LC 4.4 pg/mL Invalid Interpretation Code 2.0-4.4 [facility] Comment on above: Result Comment: Perf ormed At: [facility] [address] [id number] Yumiko Sheppard PhD Ph:[phone] Performed By: #### 1 [id number] #### [facility] (DEFAULT) [address] [place] [address] Free T4on 04-14-2023 Free T4 [Mass/Vol] 0.65 ng/dL Normal 0.61-1.12 [facility] Comment on above: Performed By: #### 1 [id number] #### [facility] (DEFAULT) [address] [place] [address] Provider Orderson 04-14-2023 Provider Orders [id number] Normal [facility] TSHon 04-14-2023 TSH Qn 0.02 m[IU]/L Low 0.45-5.33 [facility] Comment on above: Performed By: #### 1 [id number] #### [facility] (DEFAULT) [address] [place] [address] [place] Thyroidon 01-26-2023 US Thyroid HISTORY: History [...] thyroid nodules on ultrasound proposed by the [employer] (ACR) Report reported and signed by Kin Graves on 01/26/2023 1140 Normal [facility] Meter Tester Polyphase Reverse T3 LCon 01-17-2023 Reverse T3 LC 15.7 ng/dL Invalid Interpretation Code 9.2-24.1 [facility] Comment on above: Result Comment: This test was developed and its performance characteristics determined by [facility]. It has not been cleared or approved by the Food and Drug Administration. Performed At: [facility] [id number] Michelet Barnes MD Ph:[phone] Performed By: #### 1 [id number] #### [facility] (DEFAULT) [address] [place] [address] Coding Summaryon 01-13-2023 Coding Summary HTMLBase 64 GsecveftYHd5pAi+PGhlYWQ+P Y8OPEFlY09faIQunM9WP5nRZB 2QKZPJSNDYBO4CHH4haEH3USe mO2ApgfVk KpsvdPLaTR06YRt1TDI1fXynK JtwjR0rvLLoY2i9HbOhUT73cX 67AKseHRLrIdT8VeGajzhptBP y T4gtAqPcqAYnFic+PHRhYmxlI HdpZHRoPScxMDAlJyBzdHlsZT 9nNu7wDGUsZDCvhAuciHLgBiK j e2asFSIxEMswKP5keHotJ8Pjl NL9SBWdq2h9Gq01mUE+PHRkIH C5cRugBMbll939FcIou9dhYGZ 3 kVYnJDvjBEL9X95um5B1ITDvH QBfRTF5pSQ2mQ8arSrkhuxvU0 GihYGyGwV2DDG2iXHbeK3dnPk n xhyvyO4eRpw+A53OXI0MSYSJJ O7AHgm2N4AlHyvaaAI+PC90YW UbAL42lLYssFIoz9qibIp1DvG w BWQjXRX1aJvoCSuxz0CsXVBsV 17haXXhf4R2SJLnfEzwoZEyDn ZpmTT7rI4rCBzoltxru4atiuy n Oipun2sref99zS63J53bUYneO WOqNEI6OATiDSBboJekly7usE 9wIi8+JAeqn9dza0vbsUw3GaS w YJEkhbVuwCugMDB7r2AtLc59R 9HwgHnam6AuFub3fv19uYZnz2 B6wVM4UPufGZLzcQ2dTWawYzU 6 VJCnFlThbY78dTOeVXcxDo3zv ZodeSkxJX0xKYFvfzsxJLOspM 4pKYTlvZPekXeuNQ4dQTAsbma m b756GxXtHGY5UBInxDGyT4Kcd X6jKhVcGBYkLHQgN1NnuGVcXX wuX704UOlsFpI3RIYyteKkY5S s EAJmdHncMoR0m5O4Pc4Ki7Oul tlhMGO3VBzmZOW9HiJ4DhXiCs H4E0CdYow0ANKleHgyTG1lM5A h VRYggracoowqpPH0UDUfUFXsj T32zFGiSVkjVc3or7V5y770UN FfANQwxI69Fm7snFgrMYBywYQ U nG7mfnoao2mgbuplJvOfCBGlM Sk1KXa6QFEkeQpoUkIeSGY0Ld A0QAB2oGJiaK9xvDgtyayxxR2 w Oyc+J85shW5uPJD0WBB2kyyfU DPjtdSnQL93PJ10J5XoLbawvA FibGU+QTCerwVkfXzsAO5eQsI j r4jio6XnHZvdR7RfQYWpVOtrV ab4KLKcORV5vMW6pP9aIXZvDO rjf2B7mBB0V8YvusGdbv9xo9e s GQPaBKkxR13ryUBwd0P1MPGwv PW3IPMumHihSvSqeI76Bqv+PG IldIwqg0PnDsmjj8wji3ubuOz 9 IvHcKHAdozLugNoeQIV5z0DmM z46B79qAPvhETHrUVYoOMXsUP IeuYkyqr7ysP5bEz2+PGNvbCB 3 sZX5iL5yTRAfVmY0GWknZ710E cHxfCTlPiyxq6eqr1hedOk5Cj ZaGFNvojIqcCnjWAL1b8KgUs3 8 K26oIUbdSYFtEXKgWSLhQXVke Qdsxj6bnC0yOo9+SG1zb2fymk 23zK33uNW+SNBrYPN3sByuGUb w TQNdmK3gKOepFbB6OBHlVaDmp F71oIAfMHpjNv0umQgwjOzlWK 0kNUGwmultq122SkPzm7ehKNL w xCQyGIowUTC4N51io8I8JCDtW JXcGYI7fRY0fW5vgMnaydwspM QeuBsdfxCtxGrtZDvdWRvxS78 6 IHRvcDsnPlBhdGllbnQgTmFtZ Br6E5IsLul2ZBLrgVtrBK7hnC OpRArvIm3mpDqzgQdqKC0lBSE p prcpf454UpBag2czAKFrdUYcA LarDRU1T34ok7K7XODbAHUjIN V2bAT1jU7teLnmpgivpDZbuKo g woRfvEtvSWpoMXumY065DNFtz MrxSgXwzlRrHTKqsBX3NN68GF 43hAXtw9J3zRY2W6DhJTExmby t xrlyoOP8HNDbSHByvL36Im0hb SueGz9hIOUhATI7YYQcjBLkW6 JcmM3fKeSkWFIrJGMqC0DjtIV t GUewA423OYomPzS0MISovqDiB 3TxJLJecRhcRmQ1y9K5Py3WF9 E6RX27NI03tJWvw9N1cLB8O7U h MJMufxubpctveBZ9UBSvFNSza O19Zm0maLanIi4vAWLtWFO9YH KphWLnN5LcsL4iTzKuLJJjRKE w P3NnaZNlWBisT806WJibVoO4H ABbleSgI8NxDVQjcOqfSbI8g0 Y0Jn2CGPc4SL27WA11cMEwp5W 5 iWJ8C4XtJCObmpshimuydJZ9Q OFjTJYniJ20Zl4gpEkzWk5gJE MmHDQ0UVQmuSHjT2GkuV2gCtA j YIWfIOYcL8LsfCRrZTdbV437G CqeHpU4ZQIhquFiD7KiOVHtgZ vtQcB7a4L4Lt8XJQXlND42BXT 5 tJR8LW06OZ49N5NxPofvbGAut +PHRhYmxlIHdpZHRoPScxMD WpTeJwgPjsKZ3dJd6nOFWqTIY v cIcylGUhOiKyt7odUHHtQGqsM V8vjXkuN7UflTH9NDSfe0i7Gl 87S37pD5EvtKM+JTYwtFN8oUQ 0 zC9oXaLhRgH1OTuaE193QhSvp HAaZvjhl3mmr1zniNq9SmR4DK TzeeDfcSbuAWF9i8TsLh19J61 s IHdpZHRoPSIxNSUiIHZhbGlnb z6wpN9mXz0+ZIEflEE0xCK7mY 9gZoCsQcW7ATduI542EhEhpID v Htvmb3zrw7mtqVd3QlXnPGTrm dElgVoiBEP7v6YxAe89L2XjsM flj1WlInu0ic05fGFkh6T2eNS 9 E6CeMASwsazbvNDqvHtcEN9wJ QTrusugVRSjoW7wNPDyR9m8Ba CzCdT1XYgqT2GiriY8XJMepOI g KNitKOD7L12xb3K8QTMxYMScH VG3cQE5xJ8jeJydluhwwTFxqF kembQapEdvPLvuGMubL430GNH v hDanHGMjuJ2sLJFqmLPvqDffP P4kMQBlzmyoRbFXVzIQKIdQId OYCCWHFHRRDB8pGSvvfZM+PHR k LAR5kLyhMAvnEZTrxR6eKKMqX 0x1GkJjRvJ5QUjxE4TzZTZixs fuLh16gQ6nKbDbHjH3IOofD7Z v qjN7LAJrrBYbLUkiVTN4K03tg 8E3GXAcQOObNRR8nDC9gF0brF lnbjogbGVmdDsgdmVydGljYWw t PCmoN510IMYigDkpMjNeKcJ4X qP1Ydi7W7RjWzn1ROHlnHyhCF 7omGGcVDznQh6awWywxAdvRF2 w LIEybnxxZVHauD0hHXEfmWUjq QjgLI6yQYRvzkpgs829MiCoUY F4EGAfwVAqP1ZazK1sRbAqKJV w RGXuJ9UpiVRxYQtwF990YAlvX sE0ZOVhsbSlC4JfOMCdnRtmWg U4p1E9Nz46STWXKASauxxolRY + IEFkCJU1iYgkLTluTHLguN0rG CRpE3y3XzNyTzE5DXzpP6UgIV QyfszpVn21qO0bUtZgWoJ6KIh u R8EzyeL3HTKkzIVlRFlwQQY4X 38mt9F6ESDuCGGmQQR3uRU4jH 1hbGlnbjogbGVmdDsgdmVydGl j AYcdJXkjO328ZWAuyKkgAjDCG UFMRTwvdGQ+FAPtAZQ3nLolDF rdFOZxhF3xQTKmE5v2MeJjMqL 1 DMnzI3CwINIfjjfeJa34xP5qW qRqQgA6PHnjH8WcedL7ZCWzzH RoVCojTZY6I02zz6K2YUQuIWB w VYV7uGA7jJ8ubZybbfruhBTlz ZswasYjdCntBIdqTOltE681NH TlhInoMz6TUE87AM96H2XjQzn v dGFibGU+PHRhYmxlIHdpZHRoP KgoBXLkBsFkkSzzKI7wZn3zGW GeVEGbxQnjkXFoYfFxh6esPJB z RUbjKH7wxQxxU1HyfJF4VPLax 0f4Sq41D92bT8CpcQU+PGNvbC L8oGG2aC8hApUqQjB8AXbcY05 9 LkPxeEGiUubjv8jct0uhpUg0M cZeJLZgkxAhfNtdEBR6f1FpZa 89N10lKWbiKVPhMWXvEBWiIZW h oDwlfd9ciW2yIb1+LONwiCW5k BT1sK8uFsHwYpC6QEpqQ827Aw VyeYDaSbxxT05eX3VauOG+PHR y Gcd2JNImsVvpSY4boDWfKYoyX g7gUQX0QoCwHlIlPLlbC8GqST SsfuiiqocvnEL7GEVqZAAswU6 7 Bu4orOusOq7nYXSjWIJ4LEWzr TKpV0HomV7mZbNhXKEaPYXoE2 VhnVSkOFjcY247SGdpJoY9HRY l xfJoY4HrVVZwsQxaVdR8u9E7A i1LmEblsFIbLR0oXaXpHOy7I2 IwNne2XCKpqZsnFG7pwLTfCYt u Xa0ksXlyoKrxXS3sFRAjvqdcw 895YyCuf9eaQYQxyPSpMLehVP E2J11fs5D7TSScNVWgRUR8wTP 4 gV2ddWaeyucuhWQjnWrrcjTzt HyxOUxwPHowU962MLJjqYhfKg MJGyf1T2VhYat1NNXztNlaMB2 n xGPdFNhcPh2lrFfiyInrGX3wA DKdadxop205AnXmz2euWQLcoB VkXWhoABW4T70fq0X0PSGeHHZ w WVV7nXH1cL2kpCtdrevbkKZbi WalbnUhlVklOYllBEfnM572KA EqyKuyVz4ELmy5N3QrRti7TYJ z fZsiPU2opHLpTEfhIw9cuIbej CqbRB4zEONsnpjic344LlGox9 cgKSMtiYQjSCwvLSC0R30iv1P 6 EXWaATYpVNW9iKV2kJ5gqNpuf jogbGVmdDsgdmVydGljYWwtYW hoE831EMSavVvdQvDqxRUuIiw v dGQ+KP32cl35I1NaRdvcQca1W CGvGLJ5xKE8kV7vMZUiXFxfe8 K2vDH5Z7ZsewUktm4mr9jjXVK z ZTo (more content not included)... Normal [facility] Provider Orderson 01-13-2023 Provider Orders [id number] FF [facility] T3 Free LCon 01-13-2023 Triiodothyronine,Fr ee,Serum LC 3.3 pg/mL Invalid Interpretation Code 2.0-4.4 [facility] Comment on above: Result Comment: Perf ormed At: [facility] [address] [place], [place] [id number] Yumiko Sheppard PhD Ph:[phone] Performed By: #### 1 [id number] #### [facility] (DEFAULT) [address] [place] [address] T3 Total LCon 01-13-2023 Triiodothyronine (T3) LC 135 ng/dL Invalid Interpretation Code 71-180 [facility] Comment on above: Result Comment: Perf ormed At: [facility] [address] [place], [place] [id number] Yumiko Sheppard PhD Ph:[phone] Performed By: #### 1 [id number] #### [facility] (DEFAULT) [address] [place] [address] Extra SSTon 01-12-2023 Tube Collected Yes Invalid Interpretation Code [facility] Comment on above: Performed By: #### 1 [id number] #### [facility] (DEFAULT) [address] [place] [address] Free T4on 01-12-2023 Free T4 [Mass/Vol] 0.75 ng/dL Normal 0.61-1.12 [facility] Comment on above: Performed By: #### 1 [id number], [id number] #### [facility] (DEFAULT) [address] [place] [address] SCREENING MAMMOGRAM W/MONSERRAT, BILATERAL*on 10-06-2022 SCREENING MAMMOGRAM [...] IS VERY IMPORTANT TO YOUR HEALTH. CURRENT [employer] GUIDELINES RECOMMENDS ANNUAL MAMMOGRAPHY BEGINNING AT AGE 42. THIS FACILITY USUALLY USES A REMINDER SYSTEM TO ENSURE ALL POSITIONS RECEIVED REMINDER NOTIFICATIONS AT THE TIME BASED ON THE RECOMMENDATIONS OF THIS EXAM. Report reported and signed by Hannah Yap on 10/08/2022 1159 Normal [facility] Meter Tester Polyphase HCG ( test) IA.rapi d Ql (U)Ordered By: Kwame Noel on 08-18-2022 HCG ( test) Ql (U) Negative [facility] VC CONSULT FOLLOWUPon 2020 VC CONSULT FOLLOWUP Patient: CESAR DE LA TORRE Exam Date: 09/18/2021 : 1975 Gender:F Ordering : DR BECKY TORRES M.D. Admission #: [id number] Family : Order #: [id number] CLICK HERE TO VIEW EXAM RADIOLOGY REPORT [...] Torres MD on 09/18/2021 at 14:06 Normal [facility] VC EXT VENOUS LT LIMITEDon 1 VC EXT VENOUS LT LIMITED Patient: EB DE LA TORRE Exam Date: 09/18/2021 : 1975 Gender:F Ordering : DR BECKY TORRES M.D. Admission #: [id number] Family : Order #: [id number] CLICK HERE TO VIEW EXAM RADIOLOGY REPORT [...] Torres MD on 09/18/2021 at 14:04 Normal [facility] VC CONSULT FOLLOWUPon 2020 VC CONSULT FOLLOWUP Patient: CESAR DE LA TORRE MahiColby Exam Date: 09/10/2021 : 1975 Gender:F Ordering : DR BECKY TORRES M.D. Admission #: [id number] Family : Order #: [id number] CLICK HERE TO VIEW EXAM RADIOLOGY REPORT [...] Dick M.D. on 09/10/2021 at 12:18 Normal [facility] VC EXT VENOUS HALEY LIMITEDon 09-10-2021 VC EXT VENOUS HALEY LIMITED Patient: EB DE LA TORRE Exam Date: 09/10/2021 : 1975 Gender:F Ordering : DR BECKY TORRES M.D. Admission #: [id number] Family : Order #: [id number] CLICK HERE TO VIEW EXAM RADIOLOGY REPORT [...] Hannah Dick M.D. on 09/10/2021 at 12:15 [facility] VC INJ FOAM SCLERO W US MLTI on 09-02-2021 VC INJ FOAM SCLERO W US MLTI Patient: EB DE LA TORRE Exam Date: 09/02/2021 : 1975 Gender:F Ordering : DR BECKY TORRES M.D. Admission #: [id number] Family : Order #: [id number] CLICK HERE TO VIEW EXAM RADIOLOGY REPORT [...] Po (more content not included)... Normal [facility] VC INJ SCL KARLY WARDROBE SPECIALTY WORKER VEINSon 1 10-20-2020 VC INJ SCL KARLY [employer]AR[employer] WORKER VEINS Patient: EB DE LA TORRE Exam Date: 08/20/2021 : 1975 Gender:F Ordering : DR BECKY TORRES M.D. Admission #: [id number] Family : Order #: [id number] CLICK HERE TO VIEW EXAM RADIOLOGY REPORT PROCEDURE: VEIN CENTER INJECTION SCLEROSING SOLUTION MULTIPLE VEINS SAME COMPARISON: VC INJ SCL KARLY WARDROBE SPECIALTY WORKER VEINS, 08/13/2021. INDICATIONS: Pain co-occurrent and due [...] Dick M.D. on 08/20/2021 at 16:11 Normal [facility] VC INJ SCL KARLY [employer]ARDRO[employer] SPECIALTY WORKER VEINSon 1 10-13-2020 VC INJ SCL KARLY WARDR[employer] SPECIAL[employer] WORKER VEINS Patient: EB DE LA TORRE Exam Date: 08/13/2021 : 1975 Gender:F Ordering : DR BECKY TORRES M.D. Admission #: [id number] Family : Order #: [id number] CLICK HERE TO VIEW EXAM RADIOLOGY REPORT [...] Dick M.D. on 08/13/2021 at 13:00 Normal [facility] VC CONSULT FOLLOWUPon 2020 VC CONSULT FOLLOWUP Patient: CESAR DE LA TORRE Exam Date: 08/09/2021 : 1975 Gender:F Ordering : DR BECKY TORRES M.D. Admission #: [id number] Family : Order #: [id number] CLICK HERE TO VIEW EXAM RADIOLOGY REPORT [...] Torres MD on 08/09/2021 at 13:10 Normal [facility] VC EXT VENOUS HALEY LIMITEDon 08-09-2021 VC EXT VENOUS HALEY LIMITED Patient: EB DE LA TORRE Exam Date: 08/09/2021 : 1975 Gender:F Ordering : DR BECKY TORRES M.D. Admission #: [id number] Family : Order #: [id number] CLICK HERE TO VIEW EXAM RADIOLOGY REPORT [...] Torres MD on 08/09/2021 at 12:00 Normal [facility] VC INJ FOAM SCLERO W US MLTI on 08-02-2021 VC INJ FOAM SCLERO W US MLTI Patient: EB DE LA TORRE Exam Date: 08/02/2021 : 1975 Gender:F Ordering : DR BECKY TORRES M.D. Admission #: [id number] Family : Order #: [id number] CLICK HERE TO VIEW EXAM RADIOLOGY REPORT [...] Dick M.D. on 08/02/2021 at 15:59 Normal [facility] VC CONSULT FOLLOWUPon 2020 VC CONSULT FOLLOWUP Patient: CESAR DE LA TORRE Exam Date: 07/12/2021 : 1975 Gender:F Ordering : DR HANNAH DICK M.D. Admission #: [id number] Family : Order #: [id number] CLICK HERE TO VIEW EXAM RADIOLOGY REPORT [...] Dick M.D. on 07/12/2021 at 16:05 Normal [facility] VC EXT VENOUS LT LIMITEDon 1 VC EXT VENOUS LT LIMITED Patient: EB DE LA TORRE Exam Date: 07/12/2021 : 1975 Gender:F Ordering : DR HANNAH DICK M.D. Admission #: [id number] Family : DR BECKY TORRES M.D. Order #: [id number] CLICK HERE TO VIEW EXAM RADIOLOGY REPORT [...] Hannah Dick M.D. on 07/12/2021 at 16:02 [facility] VC INJ FOAM SCLERO W US MLTI on 07-05-2021 VC INJ FOAM SCLERO W US MLTI Patient: EB DE LA TORRE Exam Date: 07/05/2021 : 1975 Gender:F Ordering : DR BECKY TORRES M.D. Admission #: [id number] Family : Order #: [id number] CLICK HERE TO VIEW EXAM RADIOLOGY REPORT [...] Dick M.D. on 07/05/2021 at 16:49 Normal [facility] VC CONSULT FOLLOWUPon 2020 VC CONSULT FOLLOWUP Patient: CESAR DE LA TORRE Exam Date: 06/18/2021 : 1975 Gender:F Ordering : DR BECKY TORRES M.D. Admission #: [id number] Family : Order #: [id number] CLICK HERE [...] Torres MD on 06/18/2021 at 14:47 Normal [facility] VC EXT VENOUS LT LIMITEDon 0 06-18-2021 VC EXT VENOUS LT LIMITED Patient: EB DE LA TORRE Exam Date: 06/18/2021 : 1975 Gender:F Ordering : DR BECKY TORRES M.D. Admission #: [id number] Family : Order #: [id number] CLICK HERE TO VIEW EXAM RADIOLOGY REPORT [...] Torres MD on 06/18/2021 at 14:28 Normal [facility] VC ENDOVENOUS ABL 1ST V LTon 06-03-2021 VC ENDOVENOUS ABL 1ST V LT Patient: EB DE LA TORRE Exam Date: 06/03/2021 : 1975 Gender:F Ordering : DR BECKY TORRES M.D. Admission #: [id number] Family : Order #: [id number] CLICK HERE TO VIEW EXAM RADIOLOGY REPORT PROCEDURE: VEIN CENTER ENDOVENOUS ABLATION FIRST VEIN LEFT COMPARISON: None. 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 Informed written consent was obtained by pa and Kade jarrett. Time out procedure was [...] the foot pedal and a single delivery/welder journeyman was created. The total number of Joules [...] Dick M.D. on 06/03/2021 at 11:54 Normal [facility] VC COMP CONSULTATIONon 05-06 VC COMP CONSULTATION Patient: EB DE LA TORRE Exam Date: 05/06/2021 : 1975 Gender:F Ordering : DR BECKY TORRES M.D. Admission #: [id number] Family : Order #: [id number] CLICK HERE TO VIEW EXAM RADIOLOGY REPORT [...] arterial disease 5. CEAP: C2, EC, , [place] PLAN: 1. Continued use of compression stockings [...] Hannah Dick M.D. on 05/06/2021 at 09:47 [place] [facility] VC VENOUS REFLUX HALEY LMTon 0 05-06-2021 VC VENOUS REFLUX HALEY LMT Patient: EB DE LA TORRE Exam Date: 05/06/2021 : 1975 Gender:F Ordering : DR BECKY TORRES M.D. Admission #: [id number] Family : Order #: [id number] CLICK HERE TO VIEW EXAM RADIOLOGY REPORT [...] echogenic thrombus seen Compressibility: Normal Flow: Normal Property Portfolio Officer: None visualized Tech Note: The left SFJ/AASV [...] Hannah Dick M.D. on 05/06/2021 at 09:11 [facility] Coding Summaryon 07-28-2019 Coding Summary CODING DATE: 019 [facility] STATUS: Home PAYOR: Commercial Insurance [...] Romina Courtney Date Saved: 07/28/2019 03:17 pm [facility] Provider Ord[place] 07-27-2019 Provider Orders [id number]#1.00OTGTI [facility] Release of Informationon Release of Information [id number]#1.00OTGTI [facility] T3 Free LCon 07-27-2019 Triiodothyronine,Fr ee,Serum LC 2.4 pg/mL 2.0-4.4 [facility] Comment on above: Result Comment: Perf ormed At: [facility] [address] [id number] Yumiko Sheppard PhD Ph:[phone] Performed By: #### 2 [id number], [id number], [id number] ####[facility] (DEFAULT)[address] [place] [address] Free T4on 07-26-2019 Free T4 [Mass/Vol] 0.86 ng/dL Normal 0.61-1.12 [facility] Comment on above: Result Comment: Spec imens that contain high levels of Biotin may cause false high results Performed By: #### 2 [id number], [id number], [id number] ####[facility] (DEFAULT)[address] [place] [address] TSHon 07-26-2019 TSH Qn 2.03 mcIU/mL Normal 0.45-5.33 [facility] Comment on above: Result Comment: Gene ral Population (males and non- females, aged 21-88) 0.45 - 5.33 Females, 1st Trimester 0.05 - 3.70 Females, 2nd Trimester 0.31 - 4.35 Females, 3rd Trimester 0.41 - 5.18 Performed By: #### 2 [id number], [id number], [id number] ####[facility] (DEFAULT)[address] [place] [address] Provider Orderson 01-12-2019 Provider Orders [id number]#1.00OTGTIF [facility] Provider Orderson 01-06-2019 Provider Orders [id number]#1.00OTGTIF [facility] Coding Summaryon 01-05-2019 Coding Summary CODING DATE: 019 [facility] STATUS: Home PAYOR: Commercial Insurance [...] Palomino Date Saved: 01/05/2019 09:39 am Normal [facility] T3 Free LCon 01-05-2019 Triiodothyronine,Fr ee,Serum LC 3.0 pg/mL 2.0-4.4 [facility] Comment on above: Result Comment: Perf ormed At: [facility] [address] [id number] Yumiko Sheppard PhD Ph:[phone] Performed By: #### 4 [id number], [id number] #### [facility] (DEFAULT) [address] [place] [address] Free T4on 01-04-2019 Free T4 [Mass/Vol] 0.83 ng/dL Normal 0.61-1.12 [facility] Comment on above: Result Comment: Spec imens that contain high levels of Biotin may cause false high results Performed By: #### 4 [id number], [id number] #### [facility] (DEFAULT) [address] [place] [address] TSHon 01-04-2019 TSH Qn 2.15 mcIU/mL Normal 0.45-5.33 [facility] Comment on above: Result Comment: Gene ral Population (males and non- females, aged 21-88) 0.45 - 5.33 Females, 1st Trimester 0.05 - 3.70 Females, 2nd Trimester 0.31 - 4.35 Females, 3rd Trimester 0.41 - 5.18 Performed By: #### 4 [id number], [id number] #### [facility] (DEFAULT) [address] [place] [address] [place] Thyroidon 01-04-2019 US Thyroid EXAM: US [...] MD 01/04/19 3:38 pm Technologist: Jalyn ELY [facility] Vit D25 OHon 01-04-2019 Vitamin D 25 OH 26 ng/mL [facility] Comment on above: Result Comment: In 2 [...] 250 Upper Safety Limit >100 >250 Reference Alyes PERES et al. Evaluation, Treatment, and Prevention of Vitamin D Deficiency: An Endocrine Society Clinical Practice Guideline, J Clin Endocrinol Metab 2011; 96 (7): 1410-8050. Performed By: #### 4 [id number], [id number] #### [facility] (DEFAULT) [address] [place] [address] Coding Summaryon 12-09-2018 Coding Summary CODING DATE: 019 [facility] STATUS: Home PAYOR: Commercial Insurance [...] Wendy Palomino Date Saved: 12/09/2018 01:01 pm [facility] Provider Orderson 12-08-2018 Provider Orders [id number] F [facility] T3 Free LCon 12-08-2018 Triiodothyronine,Fr ee,Serum LC 2.5 pg/mL 2.0-4.4 [facility] Comment on above: Result Comment: Perf ormed At: [facility] [address] [id number] Yumiko Sheppard PhD Ph:[phone] Performed By: #### 2 [id number], [id number], [id number] #### [facility] (DEFAULT) [address] [place] [address] Free T4on 12-07-2018 Free T4 [Mass/Vol] 0.84 ng/dL Normal 0.61-1.12 [facility] Comment on above: Result Comment: Spec imens that contain high levels of Biotin may cause false high results Performed By: #### 2 [id number], [id number], [id number] #### [facility] (DEFAULT) [address] [place] [address] TSHon 12-07-2018 TSH Qn 2.68 mcIU/mL Normal 0.45-5.33 [facility] Comment on above: Result Comment: Gene ral Population (males and non- females, aged 21-88) 0.45 - 5.33 Females, 1st Trimester 0.05 - 3.70 Females, 2nd Trimester 0.31 - 4.35 Females, 3rd Trimester 0.41 - 5.18 Performed By: #### 2 [id number], [id number], [id number] #### [facility] (DEFAULT) [address] [place], [place] [id number] Coding Summaryon 08-13-2018 Coding Summary CODING DATE: 018 FINAL [facility] STATUS: Home PAYOR: Commercial Insurance ADMIT [...] Normal throat gene isolated No pathogens isolated [facility] Comment on above: Performed By: #### 4 [id number], [id number] #### [facility] (DEFAULT) [address] [place] [address] ED Clinical Summaryon 2017 ED Clinical Summary [facility] ? Urgent Care [address] [place] [address] Clinical Summary PERSON INFORMATION Name: EB WILCOX Age: 43 Years Sex: FEMALE : [birth year] MRN: Acct#: Visit Reason: UC - Sore Throat; C/O WHITE SPOT IN THROAT Arrival: 08/07/18 14:50:00 Discharge: 08/07/18 15:27:00 LOS: 000 00:37 Check In: 08/07/18 14:50:00 Checkout: 08/07/18 15:27:00 Address: [address] [place] [address] PCP: Provider, None PROVIDER INFORMATION Provider Role [...] Patient/family/caregiver verbalizes understanding of instructions given Comment: [facility] ED Note - Physicianon 2017 ED [...] treatment plan. Impression and Plan Diagnosis Tonsillolith (EQT68-QO J35.8, Discharge, Medical) Plan Patient was given [...] 08/07/2018 17:00 EST] Juan Miguel Heard Normal [facility] ED Patient Summaryon 018 ED Patient Summary [facility] ? Urgent [address] [address] PATIENT DISCHARGE INSTRUCTIONS Patient Information Name: EB WILCOX Age: 43 Years Date of : [birth year] [facility]: [id number] Reason For Visit: UC - Sore Throat; [...] 10/15/2005 Document Revised: 05/13/2017 Document Reviewed: 12/14/2014 [employer] Interactive Patient Education ? 2017 [employer] Medication Information: The exam and treatment you received today in the [facility] Emergency Department were for an urgent problem and are not intended as complete care. It is important for you to follow up with a doctor, nurse practitioner, or physician?s patient care assistant for ongoing care. If your symptoms [...] of medications post discharge. 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 Any specific questions regarding your chronic medications and dosages should be discussed with your primary care physician(s) and/or pharmacist. New Medications Other Medications thyroid desiccated ([place] Thyroid 60 mg oral tablet) 1 tab(s) Oral every day. Visit Information Visit Diagnosis: Diagnoses This Visit Tonsillolith (J35.8) UC - Sore Throat ([id number]) If you received any narcotics, sedation, or [...] Stop date 08/07/18 15:02:00 EST, Nurse collect, [id number] Radiology Cardiology Viruses or Bacteria What?s got [...] Comment on above: Performed By: #### 4 [id number], [id number] #### [facility] (DEFAULT) [address] [place] [address] Strep procedure control Pass [facility] Comment on above: Performed By: #### 4 [id number], [id number] #### [facility] (DEFAULT) [address] [place] [address] Ur[facility] Recordon 018 Urgent Care Record [facility] ? Urgent Care [address] [place] [address] PATIENT DISCHARGE INSTRUCTIONS Patient Information Name: EB WILCOX Age: 43 Years Date of : [birth year] Reason For Visit: UC - Sore Throat; C/O WHITE SPOT IN THROAT Arrival Time: 08/07/18 14:50:00 Primary Care Physician: Provider, None Attending Physician: Juan Miguel Heard Comment: Visit Diagnosis: Diagnoses This Visit Tonsillolith (J35.8) UC - Sore Throat ([id number]) If you received any narcotics, sedation, or [...] and treatment you received today in the [facility] Urgent Care were for an urgent problem and are not intended as complete care. It is important for you to follow up with a doctor, nurse practitioner, or physician?s patient care assistant for ongoing care. If your symptoms [...] of medications post discharge. 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 Any specific questions regarding your chronic medications and dosages should be discussed with your primary care physician(s) and/or pharmacist. New Medications Other Medications thyroid desiccated ([place] Thyroid 60 mg oral tablet) 1 tab(s) [...] 10/15/2005 Document Revised: 05/13/2017 Document Reviewed: 12/14/2014 [employer] Interactive Patient Education ? 2017 [employer]. Viruses or Bacteria What?s got you sick? [...] for Disease Control and Prevention May 2014 [facility] CN[facility] Letter TextToll Free : [phone].[facility]/cancer [facility] - [address] [address]Rvosh: [phone]: [facility] [place], [place] [address]Uowrq: [phone]: [place] [id number] [place], [place] [address]Ffukn: [phone]: Cornelius Palomino M.D., Roni Cardenas M.D.Abdulaziz Mendoza M.D.Slava Carrillo D.O..Gustavo Gottlieb M.D.Jennifer Mcdonald M.D. Kaur Castrejon M.D..04/15/2017Eb Mcguirec [id number] [facility] [address]Zx Bhavik GonzalezBL[facility] OB/GYNDear Eb Boone's lupus anticoagulant panel was negative. She has no evidence of theantiphospholipid antibody syndrome/lupus anticoagulant. I have given thepatient reassurance with the lab results. Thanks Dr Gonzalez, and kindestregards,Sincerely, Maeve Cardenas MD(signed electronically to expedite mailing) Normal [facility] APTTon 04-13-2017 aPTT 29.7 s Normal 23.0-32.4 [facility] Comment on above: Result Comment: The [...] reagent. Performed By: #### P T, PTT ####[address] [phone] + CBCon 04-13-20 17 Absol Gran Count 4.44 k/uL Normal 1.45-7.50 [facility] Comment on above: Performed By: #### P T, PTT ####[address] [phone] Erythrocyte distribution width Auto Ratio (RBC) 12.5 % Normal 11.5-15.0 [facility] Comment on above: Performed By: #### P T, PTT ####[address] [phone] Erythrocytes (RBC) 4.05 10*6/uL Normal 3.90-5.20 [facility] Comment on above: Performed By: #### P T, PTT ####[address] [phone] Hematocrit (HCT) 38.2 % Normal 36.0-46.0 [facility] Comment on above: Performed By: #### P T, PTT ####[place] [address] [address], [place] [phone] Hemoglobin mass conc (Bld) 13.2 g/dL Normal 11.5-15.5 [facility] Comment on above: Performed By: #### P T, PTT ####[address] [phone] MCH 32.6 pG Normal 26.0-34.0 [facility] Comment on above: Performed By: #### P T, PTT ####[address] [phone] MCHC mass conc (RBC) 34.6 g/dL Normal 30.5-36.0 [facility] Comment on above: Performed By: #### P T, PTT ####[place] [phone] MCV 94.3 fL Normal 80.0-100.0 [facility] Comment on above: Performed By: #### P T, PTT ####[address] [phone] Platelet mean volume (PMV) 10.0 fL Normal 9.0-12.7 [facility] Comment on above: Performed By: #### P T, PTT ####[address] [phone] Platelets 252 10*3/uL Normal 150-400 [facility] Comment on above: Performed By: #### P T, PTT ####[address] [phone] WBC (Leukocytes) 6.97 10*3/uL Normal 3.70-11.00 [facility] Comment on above: Performed By: #### P T, PTT ####[facility] [address], [place] [phone] CNOVSPon 04-13-2017 CNOVSP Visit (SP) Office (HEMASA) EB DE LA TORRE ([id number]) 1975 FDate Time Provider Department04/13/17 4:00 PM [...] laboratory test PTTPAST SURGICAL HISTORYNo date: BREAST MRENVN0812/09/2016: DANDamp;C, DIAG AND/OR THERAPEUTIC Comment: Dilation ANDamp; [...] 14.4 oz) LMP (LMP Unknown) BMI 27.06 kg/i9Gdctcgb Appearance: alert and oriented, appearing in no [...] ANTICOAG PLMaeve Cardenas, DONeferring Provider: BHAVIK GONZALEZ [[id number]]Allergies As of Date: 04/13/2017(No Known Allergies)Date Reviewed: 04/13/2017Reviewed by: Bren Berry - Fully AssessedPrimary Visit Diagnosis:Less than 8 weeks gestation of [Z3A.01]Order(s):ABS GRAN CT + CBC [SQAGCCBC] Order #: [id number] FUTURE PROTHROMBIN TIME/PT [SQPT] Order #: [id number] FUTURE ACTIVATED PTT [SQPTT] Order #: [id number] FUTURE LUPUS ANTICOAG PL [SQLUPUSP] Order #: [id number] FUTUREPrescriptions as of 04/13/2017 Sig: + DHA ORAL Take by mouth. PROGESTERONE MISC ARMOUR THYROID 60 MG TABLET Take 60 mg by mouth once aliyah*Problem List As Of Date 04/13/2017 Noted Resolved Less than 8 weeks gestation of [Z3A.0*INVALID FOR*Encounter Status:Closed by MAEVE CARDENAS MD on 04/13/17 Normal [facility] Lupus Anticoag Panelon 04-13 aPTT 29.2 s Normal <33.5 [facility] Comment on above: Performed By: #### L UPUSP ####[facility] [address] [place], [place] [phone] aPTT 29.9 s Normal <37.3 [facility] Comment on above: Performed By: #### L UPUSP ####[facility] [address] [place], [place] [phone] aPTT 33.1 s Normal 24.4-33.4 [facility] Comment on above: Performed By: #### L UPUSP ####[place] [address] [place], [place] [phone] aPTT 28.6 s Normal 23.0-32.4 [facility] Comment on above: Result Comment: The [...] APTT reagent. Performed By: #### L UPUSP ####[place] [address] [place], [place] [phone] Beta2 Glycoprot IgG <9 Normal <20 [facility] Comment on above: Result Comment: < 20 SGU Vppgqosl48-65 SGU Low Positive> 80 SGU High PositiveThese results were obtained with the [employer] QUANTA Lite B2 GPI IgG MATTIE. B2 GPI IgG values obtained with different manufacturers' assay methods may not be used interchangeably. The magnitude of the reported IgG levels cannot be correlated to an endpoint titer. Performed By: #### L UPUSP ####[place] [address] [place], [place] [phone] Beta2 Glycoprot IgM <9 Normal <20 [facility] Comment on above: Result Comment: < 20 SMU Cqjyorit62-98 SMU Low Positive> 80 SMU High PositiveThese results were obtained with the SendUsva QUANTA Lite B2 GPI IgM MATTIE. B2 GPI IgM values obtained with different manufacturers' assay methods may not be used interchangeably. The magnitude of the reported IgM levels cannot be correlated to an endpoint titer. Performed By: #### L UPUSP ####[address], [place] [phone] DRVVT 1:1 Mix 37.4 sec Normal 32.7-46.7 [facility] Comment on above: Performed By: #### L UPUSP ####[place] [address] [address], [place] [phone] DRVVT Confirm Ratio 1.07 Normal <1.21 [facility] Comment on above: Performed By: #### L UPUSP ####[place] [address] [address], [place] [phone] DRVVT Screen 35.0 sec Normal 32.7-46.7 [facility] Comment on above: Performed By: #### L UPUSP ####[address] [phone] Hex Phase Confirm 54.4 sec Normal 45.1-64.1 [facility] Comment on above: Performed By: #### L UPUSP ####[place] [address] [address], [place] [phone] Hex Phase Delta 0.1 delta sec Normal <9.0 [facility] Comment on above: Performed By: #### L UPUSP ####[place] [address], [place] [phone] Hex Phase Screen 54.5 sec Normal 48.9-70.2 [facility] Comment on above: Performed By: #### L UPUSP ####[address], [place] [phone] IgA Cardiolipin Ab. <9 Normal 0-11 [facility] Comment on above: Result Comment: <12 APL Lvdygtgs07-02 APL Equivocal>40 APL PositiveThe following results were obtained with an ZiptaskA Lite NIKI IgA III MATTIE. Cardiolipin IgA values obtained with different manufacturers' assay methods may not be used interchangeably. The magnitude of the reported IgA levels cannot be correclated to an endpoint titer. Performed By: #### L UPUSP ####[place] [address] [place], [place] [phone] IgG Cardiolipin Ab. <9 Normal 0-9 [facility] Comment on above: Result Comment: <10 GPL Oaolbtun12-04 GPL Equivocal>40 GPL PositiveThe following results were obtained with the Inova QUANTA Lite NIKI IgG III MATTIE. Cardiolipin IgG values obtained with the different manufacturers' assay methods may not be used interchangeably. The magnitude of the reported IgG levels cannot be correlated to an endpoint titer. Performed By: #### L UPUSP ####[address] [phone] IgM Cardiolipin Ab. <9 Normal 0-11 [facility] Comment on above: Result Comment: <12 MPL Qlbietqb33-79 MPL Equivocal>40 MPL PositiveThe following results were obtained with the Inova QUANTA Lite NIKI IgM III MATTIE. Cardiolipin IgM values obtained with different manufacturers' assay methods may not be used interchangeably. The magnitude of the reported IgM levels cannot be correlated to an endpoint titer. Performed By: #### L UPUSP ####[address] [phone] Interpretation (NOTE) Normal [facility] Comment on above: Result Comment: [facility] Path[facility]: La Martinez M.D., Ph.D.Interpretation:Normal - see [...] 74:1185 (1995). Performed By: #### L UPUSP ####[facility] [place], [place] [phone] PNP Negative Normal Negative [facility] Comment on above: Performed By: #### L UPUSP ####[facility] [place], [place] [phone] PT Sec 10.7 sec Normal 8.4-13.0 [facility] Comment on above: Performed By: #### L UPUSP ####[place] [address] [place], [place] [phone] Thrombin Time 15.5 sec Normal <18.6 [facility] Comment on above: Performed By: #### L UPUSP ####[place] [address] [place], [place] [phone] PROGRESSon 04-13-2017 PROGRESS HNO ID: [id number] thor: Maeve Olsen: (none)Author Type: PhysicianType: Progress [...] laboratory test PTTPAST SURGICAL HISTORYNo date: BREAST MNRRNL1212/09/2016: DANDC, DIAG AND/OR THERAPEUTIC Comment: Dilation AND [...] lb 14.4 oz) LMP (LMPUnknown) BMI 27.06 kg/y2Xjmhqyr Appearance: alert and oriented, appearing in no [...] PTT- LUPUS ANTICOAG Konstantin Cardenas MD Normal [facility] Protimeon 04-13-2017 INR Coag RelTime (Bld) 1.0 {INR} Normal 0.8-1.2 [facility] Comment on above: Result Comment: The [...] 233S. Performed By: #### P T, PTT ####[facility] [address] [place], [place] [phone] Performed By: #### L UPUSP ####[facility] [address] [place], [place] [phone] PT Sec 10.9 sec Normal 8.4-13.0 [facility] Comment on above: Performed By: #### P T, PTT ####[facility] [address] [place], [place] [phone] Vital Signs Date Time Vital Sign Value Performing Clinician Facility 11-02-2023 14:47-0500 Body mass index (BMI) [Ratio] 28.02 kg/m2 Amanda Visci DO Work Phone: [facility] 11-02-2023 14:47-0500 Body weight 76.39 kg Amanda Visci DO Work Phone: [facility] 11-02-2023 14:47-0500 Diastolic blood pressure 62 mm[Hg] Amanda Visci DO Work Phone: [facility] 11-02-2023 14:47-0500 Systolic blood pressure 118 mm[Hg] Amanda Visci DO Work Phone: [facility] 08-31-2023 12:17-0500 Diastolic blood pressure 60 mm[Hg] MD Mic Bowen Work Phone: [facility] 08-31-2023 12:17-0500 Heart rate 60 /min MD Mic Bowen Work Phone: [facility] 08-31-2023 12:17-0500 Respiratory rate 14 /min MD Mic Bowen Work Phone: [facility] 08-31-2023 12:17-0500 SaO2% (BldA) [Mass fraction] 99 % MD Mic Bowen Work Phone: [facility] 08-31-2023 12:17-0500 Systolic blood pressure 95 mm[Hg] MD Mic Bowen Work Phone: [facility] 08-31-2023 10:20-0500 Body height 165.1 cm MD Mic Bowen Work Phone: [facility] 08-31-2023 10:20-0500 Body weight 73.93 kg MD Mic Bowen Work Phone: [facility] 07-21-2023 13:00-0400 Body height 165.1 cm Imad Asaad Other [facility] Other 07-21-2023 13:00-0400 Body mass index (BMI) [Ratio] 26.62 kg/m2 Imad Asaad Other [facility] Other 07-21-2023 13:00-0400 Body weight 72.58 kg Imad Asaad Other [facility] Other 07-21-2023 13:00-0400 Diastolic blood pressure 79 mm[Hg] Imad Asaad Other [facility] Other 07-21-2023 13:00-0400 Systolic blood pressure 124 mm[Hg] Imad Asaad Other [facility] Other 05-13-2023 16:00-0400 Body height 165.1 cm Cooper Hardwick Other [facility] Other 05-13-2023 16:00-0400 Body mass index (BMI) [Ratio] 26.29 kg/m2 Cooper Hardwick Other [facility] Other 05-13-2023 16:00-0400 Body weight 71.67 kg Cooper Hardwick Other [facility] Other 05-13-2023 16:00-0400 Diastolic blood pressure 75 mm[Hg] Cooper Hardwick Other [facility] Other 05-13-2023 16:00-0400 Respiratory rate 18 /min Cooper Hardwick Other [facility] Other 05-13-2023 16:00-0400 SaO2% (BldA) [Mass fraction] 98 % Cooper Hardwick Other [facility] Other 05-13-2023 16:00-0400 Systolic blood pressure 117 mm[Hg] Cooper Hardwick Other [facility] Other 12-30-2022 15:15-0400 Body height 165.1 cm Cooper Hardwick Other [facility] Other 12-30-2022 15:15-0400 Body temperature 98.2 [degF] Cooper Hardwick Other [facility] Other 12-30-2022 15:15-0400 Diastolic blood pressure 82 mm[Hg] Cooper Hardwick Other [facility] Other 12-30-2022 15:15-0400 Respiratory rate 20 /min Cooper Hardwick Other [facility] Other 12-30-2022 15:15-0400 SaO2% (BldA) [Mass fraction] 100 % Cooper Hardwick Other [facility] Other 12-30-2022 15:15-0400 Systolic blood pressure 127 mm[Hg] Cooper Hardwick Other [facility] Other 08-18-2022 09:05-0500 Diastolic blood pressure 59 mm[Hg] MD Mic Bowen Work Phone: [facility] 08-18-2022 09:05-0500 Heart rate 53 /min MD Mic Bowen Work Phone: [facility] 08-18-2022 09:05-0500 Respiratory rate 16 /min MD Mic Bowen Work Phone: [facility] 08-18-2022 09:05-0500 SaO2% (BldA) [Mass fraction] 99 % MD Mic Bowen Work Phone: [facility] 08-18-2022 09:05-0500 Systolic blood pressure 97 mm[Hg] MD Mic Bowen Work Phone: [facility] 08-18-2022 07:34-0500 Body height 165.1 cm MD Mic Bowen Work Phone: [facility] 08-18-2022 07:34-0500 Body temperature 98.3 [degF] MD Mic Bowen Work Phone: [facility] 08-18-2022 07:34-0500 Body weight 72.12 kg MD Mic Bowen Work Phone: [facility] 05-12-2022 16:15-0400 Body height 165.1 cm Cooper Hardwick Other [facility] Other 05-12-2022 16:15-0400 Body mass index (BMI) [Ratio] 26.62 kg/m2 Cooper Hardwick Other [facility] Other 05-12-2022 16:15-0400 Body weight 72.58 kg Cooper Hardwick Other [facility] Other 08-22-2022 16:15-0400 Diastolic blood pressure 70 mm[Hg] Cooper Hardwick Other [facility] Other 05-12-2022 16:15-0400 Respiratory rate 18 /min Cooper Hardwick Other [facility] Other 05-12-2022 16:15-0400 SaO2% (BldA) [Mass fraction] 98 % Cooper Hardwick Other [facility] Other 05-12-2022 16:15-0400 Systolic blood pressure 110 mm[Hg] Cooper Hardwick Other [facility] Other Encounters Encounter Date Encounter Type Care Provider Facility Start: 11-09-2023 End: 11-09-2023 ambulatory Imad Asaad Facility:[facility] Start: 11-09-2023 End: 11-09-2023 ambulatory MD Mic Bowen Work Phone: [facility] Work Phone: Start: 11-09-2023 End: 11-09-2023 Patient encounter procedure MD Mic Bowen Work Phone: [facility]-CT Scan [facility] [place] Work Phone: Start: 11-02-2023 End: 11-03-2023 ambulatory AMANDA Martine KACI Not Available Start: 11-02-2023 End: 11-02-2023 Patient encounter status Amanda Martine Kaci DO Work Phone: [facility] Start: 11-02-2023 End: 11-02-2023 Periodic preventive med est patient 40-64yrs Amanda Martine Kaci DO Work Phone: [facility] Comment on above: Encounter for gyneco logical examination without abnormal finding; Encounter for screening mammogram for malignant neoplasm of breast; Encounter for screening for cervical cancer Start: 10-26-2023 Chart abstracting Amanda Farley Vi sci DO Work Phone: [facility] Start: 10-26-2023 End: 10-26-2023 ambulatory Imad Asaad Facility:[facility] Start: 10-26-2023 End: 10-26-2023 ambulatory MD Mic Bowen Work Phone: [facility] Work Phone: Start: 10-26-2023 End: 10-26-2023 Patient encounter procedure MD Mic Bowen Work Phone: [facility]-Nuc Med [facility] [place] Work Phone: Start: 09-07-2023 End: 09-07-2023 ambulatory Imad Asaad Other [place] [employer] Other Start: 09-07-2023 Telephone encounter Imad Asaad [facility] Start: 08-31-2023 End: 08-31-2023 ambulatory Imad Asaad Facility:[facility] Start: 08-31-2023 End: 08-31-2023 Admission to same day surgery center MD Mic Bowen Work Phone: [facility]-Digestive Health Work Phone: Start: 08-31-2023 End: 08-31-2023 ambulatory MD Mic Bowen Work Phone: [facility] Work Phone: Start: 08-24-2023 End: 08-24-2023 ambulatory MIC BOWEN Not Available Start: 08-10-2023 End: 08-10-2023 ambulatory Imad Asaad Facility:[facility] Start: 08-10-2023 End: 08-10-2023 ambulatory MD Mic Bowen Work Phone: [facility] Work Phone: Start: 08-10-2023 End: 08-10-2023 Patient encounter procedure MD Mic Bowen Work Phone: [facility]Ultrasound [facility] [place] Work Phone: Start: 08-06-2023 End: 08-07-2023 ambulatory MIC BOWEN Facility:[facility] Start: 07-22-2023 End: 07-22-2023 ambulatory Imad Asaad Other [facility] Other Start: 07-22-2023 Telephone encounter Imad Asaad [facility] Start: 07-21-2023 End: 07-21-2023 ambulatory Imad Asaad Other [facility] Other Start: 07-21-2023 Office outpatient ne w 45 minutes Imad Asaad [facility] Start: 05-13-2023 End: 05-13-2023 ambulatory Cooper Louiepiter Other [facility] Other Start: 05-13-2023 Patient encounter procedure Cooper Hardwick [facility] Start: 05-13-2023 Periodic preventive med est patient 40-64yrs Cooper Hardwick [facility] Start: 05-05-2023 End: 05-06-2023 ambulatory MIC BOWEN Facility:[facility] Start: 04-14-2023 End: 04-15-2023 ambulatory MIC BOWEN Facility:[facility] Start: 01-12-2023 End: 01-13-2023 ambulatory MIC BOWEN Facility:[facility] Start: 12-30-2022 End: 12-30-2022 ambulatory Cooperjohn Hoyosskyla Other [employer] Other Start: 12-30-2022 Office outpatient vi sit 15 minutes Cooper Ronen [facility] Start: 08-18-2022 Telephone encounter [facility] Start: 08-18-2022 End: 08-18-2022 Admission to same day surgery center MD Mic Bowen Work Phone: [facility] Start: 08-18-2022 End: 08-18-2022 ambulatory MD Mic Bowen Work Phone: [facility] Work Phone: Start: 05-12-2022 End: 05-12-2022 ambulatory Cooper Hardwick Other [place] [employer] Other Start: 05-12-2022 Patient encounter procedure Cooper Hoyosvandanaqiana [facility] Start: 05-12-2022 Periodic preventive med est patient 40-64yrs Cooper Ronen [facility] Start: 12-02-2021 End: 03-13-[address] BECKY [...] Start: 04-13-2017 End: 04-14-2017 Ambulatory MAEVE CARDENAS [facility] Procedures Date Procedure Procedure Detail Performing [...] 11/07/2024 11:30 AM EST Office Visit [facility] [address] [place] [address] Amanda Clemons, DO [address] [place] [address] [facility] Start: 11-07-2024 End: 11-07-2024 Professional / ancillary services management 11/07/2024 11:00 AM EST Ancillary Procedure [facility] [address] [place] [address] [facility] Start: 11-02-2024 Screening for malign ant neoplasm of breast Mammogram [facility] Start: 02-16-2024 End: 02-16-2024 Patient encounter procedure 02/16/2024 11:30 AM EDT Office Visit [facility] [address] [facility] [place] [address] Mic Bowen MD [address] [facility] [place] [address] (Fax) [facility] Start: 11-02-2023 End: 11-02-2023 Patient encounter procedure 11/02/2023 2:15 PM EST Office Visit [facility] [address] [place] [phone] Amanda Clemons, DO [address] [place] [address] [facility] Start: 11-02-2023 End: 12-31-2024 DBT Breast - bilateral screening Bilateral screening mammogram with tomosynthesis Imaging Routine Encounter for screening mammogram for malignant neoplasm of breast Expected: 11/02/2023, Expires: 12/31/2024 [facility] Work Phone: Comment on above: Expected: 11/02/2023 , Expires: 12/31/2024 Start: 11-02-2023 End: 11-02-2023 Professional / ancillary services management 11/02/2023 1:30 PM EST Ancillary Procedure [facility] BRE[facility] [address] [place] [phone] [facility] Start: 10-06-2023 Screening for malign ant neoplasm of breast Mammogram [facility] Start: 08-31-2023 [facility] Start: 05-22-2023 Influenza vaccination Influenza Vacc ine (#1) [facility] Start: 08-18-2022 [facility] Start: 2007 Screening for malign ant neoplasm of cervix [facility] Start: 1998 Screening for malign ant neoplasm of cervix Pap Smear [facility] Start: 1977 Screening for malign ant neoplasm of colon [facility] Patient Education [facility] Work Phone: Immunizations Immunization Date Immunization Notes Care Provider Fa cility 01-07-2021 Moderna SARS-CoV-2 Vaccination Amanda Visci DO Work Phone: [facility] 12-10-2020 Moderna SARS-CoV-2 Vaccination Amanda Visci DO Work Phone: [facility] 09-17-2017 tetanus toxoid, redu paris diphtheria toxoid, and acellular pertussis vaccine, adsorbed Amanda Visci DO Work Phone: [facility] 06-29-2017 seasonal influenza, intradermal, preservative free Amanda Visci DO Work Phone: [facility] 06-29-2017 influenza virus vacc ine, unspecified formulation Amanda Visci DO Work Phone: [facility] Payers Date Payer Category Payer Self-pay [id number] 2023 Unknown FRONTPATH FRONTP ATH [id number] 2023-Present [address] [place] [address] [id number] 1977 Unknown [id number] ..840.1.998480.3.579.2.593 1977 Unknown [id number] .840.1.384878.3.579.2.593 1977 Unknown [id number] 840.1.796604.3.579.2.593 1977 Unknown [id number] 2.16.840.1.010442.3.579.2.593 1977 Unknown [id number] .16.840.1.012823.3.579.2.593 1977 Unknown [id number] ..840.1.253877.3.579.2.593 1977 Unknown [id number] .840.1.096302.3.579.2.593 1977 Unknown [id number] 2.16.840.1.784063.3.579.2.593 1977 Unknown [id number] 2.16.840.1.912765.3.579.2.593 1977 Unknown [id number] 2.16.840.1.370011.3.579.2.593 1977 Unknown [id number] 2.16.840.1.848276.3.579.2.593 1977 Unknown [id number] 2.16.840.1.876517.3.579.2.593 1977 Unknown [id number] 2.16.840.1.958351.3.579.2.593 1977 Unknown [id number] 2.16.840.1.478072.3.579.2.593 1977 Unknown [id number] 2.16.840.1.453035.3.579.2.718 1977 Unknown [id number] 2.16.840.1.998564.3.579.2.718 1977 Unknown [id number] 2.16.840.1.892598.3.579.2.718 1977 Unknown [id number] 2.16.840.1.193783.3.579.2.718 1977 Unknown [id number] 2.16.840.1.051933.3.579.2.125 9 1977 Unknown [id number] 2.16.840.1.419416.3.579.2.125 9 1977 Unknown [id number] 2.16.840.1.302957.3.579.2.125 9 1959 Self-pay [id number] 1959 Unknown [id number] Unknown [id number] 2.16.840.1.283771.3.579.2.531 Unknown [id number] 2.16.840.1.138547.3.579.2.531 Unknown [id number] 2.16.840.1.800167.3.579.2.531 Unknown [id number] 2.16.840.1.595894.3.579.2.531 Social History Date Type Detail Facility Unknown if ever smoked [facility] Other Start: 08-24-2023 End: 11-02-2023 Sex Assigned At [facility] Start: 08-18-2022 End: 08-31-2023 Tobacco smoking status NHIS Never smoked tobacco (finding) [facility] Start: 1975 Sex Assigned At Female [facility] Start: 03-26-2023 Tobacco use and exposure Smokeless tobacco non-user [facility] Start: 10-26-2023 End: 11-02-2023 Alcohol intake Lifetime non-drinker (finding) [facility] Start: 08-24-2023 End: 11-02-2023 History of Social function [facility] Within the last year , have you been afraid of your partner or ex-partner? No [facility] How often do you att end adventism or islam services? Patient refused [facility] Do you belong to any clubs or organizations such as adventism groups, unions, fraternal or athletic groups, or [...] and Gynecology Eb Jaimes Wil 1975 11/03/23 [id number] Yearly Wellness Exam Chief Complaint Patient presents with Gynecologic Exam Yearly .Denies breast, urinary, bowel, and java software problems Visit Vitals BP 118/62 Wt 168 [...] in the morning. Take before meals. thyroid ([place] Thyroid) 60 MG tablet Take 1 tablet [...] Diagnosis Date Acquired hypothyroidism (CMS/HCC) Conversion disorder ([facility] Dr. Roldan iVllar Gastritis Goiter ([facility]) Dr. Aguilar History of abnormal cervical Pap smear Hypothyroidism (acquired) ([facility]/HCC) Low serum progesterone Pap smear for cervical [...] palpable. BACK: No obvious scoliosis/kyphosis. 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 documented in this encounter [facility] 08-31-2023 Procedure note [facility] 07-21-2023 Evaluation note Encounter Date Diagnosis Assessment Notes Jun, Functional constipation (ICD-10 - K59.04) Jun, Bloating (ICD-10 - R14.0) Jun, Epigastric abdominal pain (ICD-10 - R10.13) [facility] Other 10-31-2023 History general Narrative - Reported* Type Description Date Medical History Tendonitis Medical History Thyroid conversion issue Medical History tonsil stones Medical History varicose veins Medical History CIC IBS Surgical History varicose vein stripping 023 [facility] Other 08-23-2023 Evaluation note* Encounter Date Diagnosis Assessment Notes Treatment Notes Treatment Clinical Notes Apr, Annual physical exam (ICD-10 - Z00.00) Overall, patient doing well. Continue current care. Up to date on WWE and mammogram (through her medical imaging tech, Dr. Pringle). She recently had comprehensive labs done through her specialist, including thyroid levels and Vit D, and agrees to drop them off for my review. Apr, Acquired hypothyroidism (ICD-10 - E03.9) Patient is following with a specialist for management. She will have labs done through her specialist. Her dose was recently reduced -- questionable whether or not her [place] has anything to do with her constipation [...] agree that is reasonable at this time. [facility] Other 04-11-2023 Evaluation note* Encounter Date Diagnosis Assessment Notes Treatment Notes Treatment Clinical Notes Dec, Acute bacterial conjunctivitis of right eye (ICD-10 - H10.31) Will treat as detailed. We did discuss s/s of ocular emergencies -- immedeiately to the nearest ER for any of those s/s. Call with questions/concerns . [facility] Other [facility]* Encounter Date Diagnosis Assessment Notes Treatment Notes Treatment Clinical Notes Apr, Annual physical exam (ICD-10 - Z00.00) Overall, patient doing well. Continue current care. Up to date on WWE and mammogram (through her medical imaging tech, Dr. Pringle). She plans to have comprehensive labs done through her specialist, including thyroid levels and Vit D. Apr, Acquired hypothyroidism (ICD-10 - E03.9) Patient is following with a specialist for management. She will have labs done through her specialist. [facility] Other Evaluation noteNo assessment information available [facility] Work Phone: Evaluation noteNo [employer] Other Evaluation note* Diagnosis Encounter for gynecological examination without abnormal finding Encounter for screening mammogram for malignant neoplasm of breast Encounter for screening for cervical cancer documented in this encounter [facility] Author Kwame Noel [facility] August 18, 2022 8:07am Note Date/Time August 18, 2022 8:07am [facility] [address] [place] [address] Gastroenterology H&P Signed Patient: Eb De La Torre MR#: [id number] : 1975 Acct:[id number] Age/Sex: 47 / F Adm Date: 2 Loc: Room: Type: [facility] Attending Dr: Kwame Noel MD Copies [...] <Electronically signed by Kwame Noel MD> 08/18/22806 [facility] Work Phone: History and physical note Author Debi Mares [facility] August 31, 2023 11:27am Note Date/Time August 31, 2023 11:28am [facility] [address] [place], [place] [id number] Gastroenterology H&P Signed Patient: Eb De La Torre MR#: [id number] : 1975 Acct:[id number] Age/Sex: 48 / F Adm Date: 3 Loc: Room: Type: [facility] Attending Dr: Debi Mares MD Copies [...] signed by Debi Mares MD> 08/31/23 1127 [facility] Work Phone: History general Narrative - Reported* Type Description Date Medical History Tendonitis Medical History Thyroid conversion issue Medical History tonsil stones [facility] Other Hospital Discharge instructions Additional Instructions DISCHARGE [...] Follow up with PCP. - Office number [phone].[facility] Work Phone: Hospital Discharge instructions Additional [...] NOT operate machinery such as power tools, [employer], [employer], Handel[employer]raGamesing machines, etc. for 24 hours. - Avoid [...] if you have any problems. -Office number [phone]. [facility] Work Phone: Summary Purpose Family History [...] (K59.01) Referral Organization [facility] Referring Provider First Name Cooper Referring Provider Last Name Ronen Referring Provider Specialty Family Prac jillian Referred Organization [facility] Gastroenterolo gy Referred Provider Debi Mares Referred Address [address] [place] [id number] Referred Provider Specialty Gastroentero logy Referral Priority Routine General Notes Beatriz Cid 04:04:06 PM >recieved today, faxed P2P Additional Source Comments INFORMATION SOURCE (unrecogn ized section and content) DATE CREATED AUTHOR 03/17/2018 [facility] DATE CREATED AUTHOR AUTHOR'S ORGANIZ ATION 07/28/2019 [facility] DATE CREATED AUTHOR AUTHOR'S ORGANIZ ATION 03/13/2022 [facility] DATE CREATED AUTHOR AUTHOR'S ORGANIZ ATION 01/27/2023 [facility] dical Specialist DATE CREATED AUTHOR AUTHOR'S ORGANIZ ATION 08/14/2023 [facility] DATE CREATED AUTHOR AUTHOR'S ORGANIZ ATION 11/07/2023 [facility] dical Specialists EPIC DATE CREATED AUTHOR AUTHOR'S ORGANIZ ATION 11/10/2023 [facility] REASON FOR VISIT (unrecogniz ed section and content) Reason Comments Gynecologic Exam Yearly .Denies breas t, urinary, bowel, and java software problems Care Teams (unrecognized sec tion and [...] 26, 2023 End: October 26, 2023 Debi Mraes MD Attending Provider Active Start: October 26, 2023 End: October 26, 2023 Financial Services Assistant Relationship Specialty Start Date End Date Cooper Hardwick MD PCP - General Family Medicine 02/25/23 Financial Services Assistant Relationship Specialty Start Date End Date Cooper Hardwick MD [address] [place] [phone] PCP - General Family Medicine 10/28/23 Team [...] BE BASED ON THE PRIMARY CLINICAL RECORDS. [employer] provides no warranty or guarantee of the accuracy or completeness of information in this document.
== END 2023-11-12 10:34 | disposition home or self-care (01) ==
LOC: VC 10:33
PROVIDERS: PCP Radiology Diagnostic Radiology; Visit Provider Radiology Diagnostic Radiology
DX: I83.813 Varicose veins of bilateral lower extremities with pain (principal)
CPT/HCPCS: 36466

== ENCOUNTER 2023-11-19 10:58 | Outpatient (OUT) | payer OTHER, SELFPAY ==
--- NOTE | 2023-11-19 10:59 | VEIN_ITS ---
Patient Name: EB MÉNDEZ MR#: [id number] : 1975 Exam Date: 11/19/2023 Ordering Doctor: DR John Diallo M.D. RADIOLOGY REPORT PROCEDURE: [facility] EST LMTD VEIN CENTER - OFFICE VISIT FOLLOW UP COMPARISON: [facility] EST LMTD, 11/10/2023. [facility] EST LMTD, 10/06/2023. PROGRESS NOTES: The patient reports mild to moderate pain following micro foam chemical ablation of left leg incompetent varicose veins. The patient complains of focal pain in the left ankle. The patient did not require oral analgesics. The patient has worn a compression stocking. The patient has tried exercise Physical exam demonstrates a thrombosed varicose veins with some mild hemosiderin staining. The patient was cautioned on sun exposure as it relates to the permanent hemosiderin staining. Thrombosed varicose veins can be palpated corresponding to the patient's left medial ankle pain likely representing mild thrombophlebitis. No erythema or warmth. No active ulceration Review of the ultrasound performed the same day demonstrates occlusive thrombus extending throughout the treated left leg varicose veins. No residual incompetent varicose veins. A 6.6 cm segment of deep vein thrombus identified and a single left posterior tibial vein, this is 6 cm from the popliteal junction. This was discussed with the patient and I recommended that she take 1325 milligram enteric coated aspirin once per day for the next 14 days. No follow-up is necessary. The patient's treatments are now complete. She was asked to return as needed. VEIN/[facility] EST LMTD IMPRESSION: 1. Successful ablation of treated incompetent left leg varicose veins 2. Small segment of deep vein thrombus in a single left posterior tibial vein, 6 cm from the popliteal junction 3. Patient's treatment plan is complete, follow-up as needed PLAN: 325 milligram enteric coated aspirin once per day for 14 days Nurse notes, history and physical were reviewed and confirmed, see attached forms. The nurse was present throughout the physical exam and consultation Dictated by: John Diallo MD on 11/19/2023 at 11:57 Approved by: John Diallo MD on 11/19/2023 at 12:00
--- NOTE | 2023-11-19 10:59 | VEIN_ITS ---
Patient Name: EB MÉNDEZ MR#: [id number] : 1975 Exam Date: 11/19/2023 Ordering Doctor: DR JOHN DIALLO M.D. RADIOLOGY REPORT PROCEDURE: VC EXT VENOUS RT LMTD COMPARISON: VC EXT VENOUS RT LMTD, 07/27/2023. INDICATIONS: I80.01 Phlebitis of superficial veins of rt lower extremity TECHNIQUE: Lower extremity phelps scale and Duplex Doppler evaluation of the deep venous system from the inguinal ligament through the calf veins. FINDINGS: REGION: Right lower extremity. THROMBI: Negative for DVT. DVT visualized at proximal-mid PTV, 6.6cm from the Pop V. Varithena induced thrombus visualized at prox/med calf and medial knee. COMPRESSIBILITY: Non-compressible segments corresponding to thrombus FLOW: Normal waveform and antegrade flow between 5 and 20 cm/s.Areas of no flow corresponding to thrombus OTHER: No patent varicose veins remain. CONCLUSION: Post ablation occlusion of treated varicose veins. 6.6 cm segment of deep vein thrombus in the proximal to mid posterior tibial vein, far removed from popliteal vein Dictated by: John Diallo MD on 11/19/2023 at 11:27 Approved by: John Diallo MD on 11/19/2023 at 11:27
--- OUTSIDE RECORDS SUMMARY | 2023-11-19 11:08 | XMS_ITS | CCD ---
Author Name Unknown Address [address] [facility] [address] [place] [address] Organization [facility] Care Team Providers Care Garden Equipment Mechanic Name Role Phone MAEVE CARDENAS Unavailable Unavailable [...] Provider MD Mic Bowen Primary Care Provider [phone] Kwame Noel Unavailable Asaad, Imad Unavailable MD Mic Bowen Primary Care Provider [phone] MD Debi Mares Attending Provider MIC BOWEN. [...] Propensity to adverse reactions to food (disorder) [facility] Repository (1 source) No Known Medication Allergies; Translations: [No Known Medication Allergies] Propensity to adverse reactions to drug (disorder) [facility] Repository (3 sources) Escitalopram Drug Allergy 3 [facility] (3 sources) Latex Propensity to adverse reactions 7 [facility] Medications Current Medications Medication Drug Class(es) Dates Sig (Normalized) Sig (Original) cholecalciferol 0.125 mg oral tablet (12 sources) Vitamin D Start: 08-18-2022 take 1 tablet by mouth once daily Cholecalciferol (Vitamin D3) (Vitamin D3) 125 mcg (5,000 unit) Tablet Active 54106 UNIT PO Daily August 18, 2022 12:00am take 2 capsules by m outh every twenty-four hours Vitamin D3 1.25 MG (86242 UT) 2 capsules Orally Daily Active ciprofloxacin [...] Daily August 31, 2023 12:00am Thyroid (Pork) ([place] Thyroid) 60 mg Tablet (3 sources) Start: 8 take 1 tablet by mouth twice daily Thyroid (Pork) ([place] Thyroid) 60 mg Tablet Active 60 MG PO Twice daily November 16, 2017 12:00am thyroid (half-way) 60 mg oral tablet (12 sources) Start: 8 End: 4 take 1 tablet by mouth in the morning thyroid ([place] Thyroid) 60 MG tablet Indications: Sick-euthyroid syndrome [...] by mouth every six hours Hydrocodone-Acetami nophen (Marianna) 5-325 mg tablet Discontinued 1 - 2 [...] morning. 28 tablet 09/06/2023 09/05/2024 Active Multivit 66-Ybcs-Xqtlfe 1-Dha (Pnv-Dha) 27 mg iron-1 mg -300 mg Capsule (5 sources) Start: 11-16-2017 End: 08-18-2022 take 1 capsule by mouth once daily Multivit 42-Pnmb-Yedsdn 1-Dha (Pnv-Dha) 27 mg iron-1 mg -300 [...] [facility] abdomen pelvis w [facility] [place] [address] [place] [address] CT Scan Report Signed Patient: Eb De La Torre MR#: [id number] 73 : 1975 Acct:[id number] Age/Sex: 48 / F ADM Date: 11/09/23 Loc: CT Room: Type: [facility] Attending Dr: Debi Mares MD Copies [...] Lilia Thompson M.D.11/09/2023 5:17 PM Dictation Location: [place] [address] Transcribed By: [facility] 11/09/231716 Dictated By: Ana Lilia Thompson MD 11/09/231709 Signed By: 11/09/231716 [facility] Laboratory - Cytologyon 10-22 Asset Protection Manager Cyto stain Nom (Cvx/Vag) [ID] [facility] Comment on above: KMB, CT(ASCP) CT scr eening location: [employer] [facility], [address] [place] [address], [place] [address]. Cytology study comment Cyto stain Reza (Cvx/Vag) [Interp] [facility] Comment on above: This Pap test has be en evaluated with computer assisted technology. Microscopic observation Cyto stain Nom (Cvx) [facility] Comment on above: Cytology Results: Ne gative for intraepithelial lesion or malignancy. Specimen source Cyto stain Nom (Cvx/Vag) [facility] Comment on above: None given Statement of adequacy Cyto stain (Cvx/Vag) [Interp] [facility] Comment on above: Satisfactory for yoseph luation. Endocervical/transformation zone component absent. Laboratory - Microbiology an d Antimicrobial susceptibilityon 11-03-2023 HPV E6+E7 mRNA GEORGIANA+probe Ql (Cvx) Not detected Not Detected [facility] Comment on above: Methodology: Transcr iption-Mediated Amplification This assay detects E6/E7 viral messenger RNA (mRNA) from 14 high-risk HPV types (16,18,31,33,35,39,45,51,52,56,58,59,66,68). Cervical sources are required for HPV testing. If a vaginal source from a patient who has had a total hysterectomy with removal of cervix was submitted, please contact the testing laboratory for alternative testing options. For additional information, please refer to http://education.[employer]/faq/HUZ858z1 (This link if provided for information/ educational purposes only.) No Panel Informationon 11-03 (ALWAYS MESSAGE) [facility] Comment on above: EXPLANATORY NOTE: The Pap [...] historic and current clinical information. Clinical information [facility] Comment on above: None given Date of previous biopsy [facility] Comment on above: NONE GIVEN Date of previous PAP smear [facility] Comment on above: NONE GIVEN Last menstrual period start date [facility] Comment on above: NONE GIVEN Performing Organizat ion Information Site ID: [id number] Name: [facility] Address: [address] [place] [address], [address] [place] [phone] Director: Bryce Artis MD [facility] BI MAMMOGRAM SCREENING TOMOS YNTHESIS BILATERALon [...] IS VERY IMPORTANT TO YOUR HEALTH. THE [place] GUIDELINES RECOMMEND THAT WOMEN 40 [...] emptying studyon 10-26-2023 NM gastric emptying study [facility] [place] [address] Nuclear Medicine Report Signed Patient: Eb De La Torre MR#: [id number] 73 : 1975 Acct:[id number] Age/Sex: 48 / F ADM Date: 10/26/23 Loc: [place] Room: Type: [facility] Attending Dr: Debi Mares MD Copies [...] Lilia Thompson M.D.10/26/2023 12:42 PM Dictation Location: [place] [address] Transcribed By: [facility] 10/26/23 124 Dictated By: Ana Lilia Thompson MD 10/26/23 0921 Signed By: 10/26/23 124 Normal [facility] HCG ( test) [place].josei d Ql (U)Ordered By: Debi Mares on 08-31-2023 HCG ( test) Ql (U) Negative [facility] HCG,Urineon 08-31-2023 Beta HCG ( test) Ql (U) Negative [facility] Comment on above: Result Comment: PERF ORMED BY: [place] [address] PATHOLOGIST [employer] B[employer] PLAYER RIZWANA NEGRO M.D. Performed By: #### U HCG #### [address] 08-31-2023 L ----- Specimen: [id number] Received: 08/31/23 Status: ENOC Reggie Num: [id number] Spec Type: Surgical Subm Dr: Debi Mares MD Tissues: A Duodenum - Biopsy (DUOD) B GASTRIC FOR HP (GASTRIC HP) Procedures: HE/4, Gross/Micro L4/2, H PYLORI Age/ Patient Sex Location Account Attending Physician Eb De La Torre 48/F [id number] Debi Mraes MD SPEC NUM: [id number] RECD: 08/31/23 STATUS: ENOC PAREDES NUM: [id number] RICKY: 08/31/[address] [facility] [address]: Debi Mares MD ENTERED: 08/31/[address] [facility] [address]: DELMAR TYPE: Surgical DEPT: S ENTERED BY: [id number] RECV BY: [id number] ORDERED: HE/4, Gross/Micro L4/2, H PYLORI ORDERED: [...] submitted in one cassette labeled A1. Specimen: [id number] Received: 08/31/23 Status: ENOC Paredes Num: [id number] Spec Type: Surgical Subm Dr: Debi Mares MD Tissues: A Duodenum - Biopsy (DUOD) B GASTRIC FOR HP (GASTRIC HP) Procedures: HE/4, Gross/Micro L4/2, H PYLORI Patient: Eb De La Torre [id number] (Continued) Specimen: [id number] Received: 08/31/23 (Continued) Gross Description (Continued) Signed (signature on file) Christine Snyder MD 09/01/23 1731 Specimen: [id number] Received: 08/31/23 Status: ENOC Paredes Num: [id number] Spec Type: Surgical Subm Dr: Debi Mares MD Tissues: A Duodenum - Biopsy (DUOD) B GASTRIC FOR HP (GASTRIC HP) Procedures: HE/4, Gross/Micro L4/2, H PYLORI Patient: Terence De La Torren Theodore [id number] (Continued) Specimen: [id number] Received: 08/31/23 (Continued) Gross Description (Continued) B. Received in formalin labeled with the patient's name, date of and gastric biopsy is one mckinney tissue measuring 0.3 cm. Entirely submitted in one cassette labeled B1. Microscopic Description A. Two H E slides reviewed. The microscopic examination confirms the diagnosis. B. Two H E slides reviewed. The microscopic examination confirms the diagnosis. CPT Codes 34454h9, 43587 x 1 Specimen: [id number] Received: 08/31/23 Status: ENOC Paredes Num: [id number] Spec Type: Surgical Subm Dr: Debi Mares MD Tissues: A Duodenum - Biopsy (DUOD) B GASTRIC FOR HP (GASTRIC HP) Procedures: HE/4, Gross/Micro L4/2, H PYLORI Patient: Eb De La Torre [id number] (Continued) Signed (signature on file) Christine Snyder MD 09/01/23 6972 [facility] Reverse T3 LCon 08-12-2023 Reverse T3 LC 12.5 ng/dL Invalid Interpretation Code 9.2-24.1 [facility] Comment on above: Result Comment: This test was developed and its performance characteristics determined by [facility]. It has not been cleared or approved by the Food and Drug Administration. Performed At: [address] [id number] Michelet Barnes MD Ph:[phone] Performed By: #### 1 [id number] #### [facility] (DEFAULT) [address] [place] [address] US abdomen limitedon 023 US abdomen limited [facility] Main [place] [address] [place] [address] Ultrasound Report Signed Patient: Eb De La Torre MR#: [id number] [birth year] : 1975 Acct:[id number] Age/Sex: 48 / F ADM Date: 08/10/23 Loc: Room: Type: [facility] Attending Dr: Debi Mares MD Ordering [...] Farley Jr., D.OJames08/10/2023 12:44 PM Dictation Location: [place] [address] Tech: Brittney Otoole Transcribed By: [facility] 08/10/23 1244 Dictated By: Jian Farley Jr, DO 08/10/23 124 Signed By: 08/10/23 1244 [facility] Coding Summaryon 08-07-2023 Coding Summary HTMLBase 64 PifxbtruOEp9cBl+PGhlYWQ+P S2ZDAWxU21tfNHusG8uD7FTLO lOSywgQVBQTElOSyIgbmFtZT1 kaXNjZXJu IC8+KP4kQWQyGxmkwTDfu6U5n NO1S41xqs2zVUwqxRG5THVdNz Jeapvym0pbzSt3FYmzMtjpJuB t NTTghL31OMZ7vL09Ii17qVOvf HYgv4qlwLl2JaEbLKKnHFB0zN qtNHzfg1WmWXAvA28uzHIsk4W 6 NZEehRpqxCXpJnNnzLK1uS1hJ Vcqgwlot4ykcqfbVsb1gh34aM Bve1L0aLB0I3PacbN2CXHulCZ g IqmbrJQHhM2sjihoa9vsrmlhB mEjWYXqJBw4ZPd6UFMqrGncKp NzQY28PRK7VHZxanLlK4FyQBM s iDeuDwO0v1O5Zk8UL2JCObcxW 1VNTUFSWTwvdGQ+JV57jm38F8 YzKjieLak1NRQvOHN5zNS8cK6 n XKNeTSoaj7E3dFG6N3XpwzLtn u1ab0apULZyRBooX28gjMUhd7 M3JOOiqWY8LPAtnLylYdCpmR9 3 Oyc+BDHckTluh2QnNxifh2dix 8dwbFx9LvgkZPKqqgZmsMdqSB W9w9LaAl6qYUJjnIZ5uIX0cC9 i MrGjZoN7WTcvY146VnNesBJzN eelN46hN0MiiVG+AIXpUbj2BP AtoUsdED1cM5YpGJOoullbnUD m fQjnPC1eESMusyfsIBLnzE2xL DRnF2k6VeGcRpB7ATikG1RiPY VmbamdDk05gI1vBbHhAlM7SUh u A0RxamM0IQAmsLHjBXeoMWK5S 54ij8V9QPJnKKInJRQ0zVO4zO 1hbGlnbjogbGVmdDsgdmVydGl j TOymGOidP120QKLksUnuQoUyF GluZyBEYXRlOiAgMTEvMTcvMj AyMzwvdGQ+MPSzRVB8pPpxGWG n jIFgLRfsBm5wvCgltWmtUC1sU OCpsvwqALNdvH0eTVXsaLOvxR gjCB1iJHKcblnbz586LyBqJYF 0 KVWwvOTfO9NpzK5bBcEaGSLcA YGeU3ImfGKwNZqbI774HRqyXd T5INZfplEfU0ZcLJKirIjtZxJ 0 l2I9Yt6Wz9SjuyjqC7BoxKEhP sXfKcvqWBz8H8KaTfiyjQR+PC 47QOZpBP36WBi1ERF8zSlwFBb i ANJkN8EarQ3xYhDcWQJmRKVyQ yc+PHRhYmxlIHdpZHRoPScxMD GgRfNctSgaDU1tJy6sMZMzGJR v pLyzrYPlCnYtr0maGFEbUUwqU O7qhNdbW4GtpVQ0YAGcc0g4Cl 36A93mZ7TwrXB+YNOjyXJ9kPX 0 uY4tRmFrHzE2HHgjP918YlHkm LYcZymde2oxj2bjyQx1HsN9TS RpozUugStaDEZ4a1XtBt69F62 s IHdpZHRoPSIxNSUiIHZhbGlnb m3ooX3eWy5+DTNjnQV1xPZ3xW 9hEfQkVcY4ZAugQ683OsRwqJY v Uqtbq7wvr5qycYm4JiHrXDNsc sQrtErwRNL6j2IoRd80V3CvrF zck2SvCrx0bi57pESkt6X8sMQ 9 K2TmNWNztsiulXIggXchVM2zR PGbqkjmHDHdcN7rTCIbN0r8Yx PwIzU3WCweH3XeyxN7HNOcrMW g RCDtgDUVuS0misecy4ovtbemO iBlLTFcXXj8QQw3PUQheRvpAd OiDDM7GqN7RYK1mGJvmT5arBz n krwerI2cAfo+LBO8fPQxhDXJD R2aAcfbxIY+RFEyUJI8aHfcSM wyOCKreG6oJRWtS5h1NlUnYjR 1 IGsuG4SoqlE4ALGvrUGfFBMbm WSXcS4nwnyai0upsvzyYpMbUD VqGFx2HYt3LRSgqEkaUmIlPTO 0 MsT3AGG3wTUwvZ5rrMxsvmxcq G9wOyc+NpfycUhdVEP8GBn3S6 DlIfo8ELXziCwgVU6asEIeVEb u Rr0zmKsgcQwlLM5yAQYnbuojk 606CsKty5jaXCQbyKRuZBljAF G9I80si8L1HMWpODRqZEA7qNN 4 sP6vnRtgqtcbxJGrtQblqxOgv VfcLKwzPMahW453XWCsgLytYn CpZAs1Q1DtPxl3WYTzpSnaSH2 n kFGcKYtaPz5yyDfcnYvtMP9dG UEhtafsm501MwOro2xrLKJlhQ WsDUxhZEP6R53dr0M4EHTdTCC w RPK3dAV9uZ9rgZyxbkcayIGvv RjtkzYxhXslXOhhKLfrF046RB QnlPznHlUluFe6H1UiUfg6CGN z eBcdIG7ggZMsKGcwYm3zrFlrg MjyKM9iZBRovpqfm147UbBre8 dwYNKgoDMsWAipXKJ1H97nc2A 6 JQSsWLYsYYU5gUE0eT3caWxcy jogbGVmdDsgdmVydGljYWwtYW aqL349GWHciCdhFnDfzAnaboE g YEibEMs4A7EhBkgbkSE+PC90Y ODbSW75aTDgbKLgi4qsjCx7Kr QiLAFiTRS3eWzcJFfoi7XiDCP t S86bbHSbk5Q5VVYlsQazcFDiB sAjzSH1vB9sFRfxvppsi5odus hnAuvbb8znvw36rC98B46dUBv p PYVsRDPnRLHpBOHgeKejfq5eq G9wIi8+JFRgsYX9dLK4qK4jOG SlEoA2EVpoF369NnNaxVImFat j h3lon7yijHj6FvU7FMLdnqHsp VfmIJV9g3LuNn38B22tLUokFE SyMFPeCGXoKUZubVupgs8ztC6 w Ii8+RTZdkTU3jNS8mR2sZbDgO iI7TQqmQ023KkFzjNJmWztpV5 1jW3ZykQX+PDTtYaf3JUMzrZi s TJ7apSMpALzcYg7iAKD6GsWwZ xQnZJliT2IsBHFruqxiwdrmlT X6ZFBdPUYclK87Qs5xhTtyXHU w yHBBqS9qpodgj5vqhddnHuAjS WStAXk6ATb7QSYtzUpoOlTaCV H5BhP4BVT5rVKttK0wiSgbqag g uW8yC6FqLJVakhqkHq27zK4hJ wLmDuV2DBpuAaj+VqATLv3uRn CRIUNzWHkLO1aGTrFNKZ26CN9 8 bCPvt7Q0eWY0X5VgHVRqeilnn beicCK2LMFxNDOxpZ52gTWdPG dxGy3rr2H5j063WEOgLIIvkP7 7 Ro1lgIpwBTGmiEUVbS3pmznvo 5bvvidmXaUxMPGcIZd4WBf5YT YftVjlJyMlMYO3KrW7WFS5iJW h pE0emCvdtdeycV1aNcq+MTAvM BGqRAf4WfomyEY+AUCiNHT1fU ziNWinBYQewF8iIIWoX2v1LbS w OmO3EHqdH2WfGILwfgsqQw83l V3bXzAjDrU9MXhoM3ZkpjJ3OB JkeTMcMDjgSAH8S72ub9X7MSP w CDXeIKS3cFH1nJ3ljQrlcvzzy GVmdDsgdmVydGljYWwtYWxpZ2 55RIWrtYqgHgP0VOitJPDcLD7 0 ZA90sIThm0C2xHO5S3ZxEGJjs grrdcpggEF6XOSnOUZxkF52qO JbDLylHk7st6Q0a235OWApKLU w pG69Sr9hfBibCGKxcWOJnO3lo knsm6iddtylPnDmGATaWNl1UR a7WJXjyYeqOhScRSV7MzP4MOK 0 mGXpfM2qgLtjmxvnrP9zEcg+R lOREPtXXW97ID22aOBez4K0eU Q2U4WvEMNvzlsvjmgrqDK6ZYG u RESskV66hAQxUWubCk0gy5B9p 319RLIaJRTasQ17Ni3fuMkzRT RfsSOJfF2ttvswc0yzegknMcK w ZVWxERw0MHm7FTObmWmkTvCnW WS2WcJ5QJD4sKFmoR2bmJngif nxkN7rVjq+H2S7L0ZcHuhbiWZ + FB39IVYvRC71iRKheAFph0uyr Ih2GdGsJHWrHTV5gOugPEekk2 GdLSJvM82otEJod3T4CCJbjQh h pLCzOsAazNJ3kO8rRKyhyucfx 1nfirvlBawon3lray73nW09I0 9sIHdpZHRoPSIzMCUiIHZhbGl n vn1hxE7fQs2+IAWxmEL1yMV7g B4pZjRmIpX4TBvaY939PbQuvW FxKlbux8rci1ydfQa9EwBdFGE g caGrpNrlFQV5r5DgPs84A72fQ HdpZHRoPSIyMCUiIHZhbGlnbj 3xjG5rCw8+FW8rg5uuyg32uZ0 8 dHI+GYMrZQG3mWqwKXxgKTFxv K8oDYcoPaD4AHUcYkItbY94iW VfXKvvMw4bwOthxAwbGR3kXBN p waebg743EeYvy6nlNFVekOHvR BxjLWP4D56ka4H3SFRxRRUpAW W1hEA1pF5qgRearspwcPHizAd g wnMmmIxtWRaaOAfbS644KXYkr TpdXjIvlABiH5mqkkNXOV9xPh wvdGQ+OSGaJCX2jWkzYCrzLSX k jV5qAIPpU3c2YaBsTnE7NMepY 9XujzQ5VZDmfCHmHVEjfBTKlQ 9gulwtl1ioztwfZtOwVEArNBe 0 CPv1WIAbgDsqTtAhYGU7NdC0Q CU3hGVykS1apEomyxlsnY0lRo c+RklOOjwvdGQ+DBXfFKI9oQu l NLmbDLIxiF5zDEYuQ5e0CtXnS rN6IKhsL8FgerN5PUYoyDGzMT TgdCAEeN6mgnpaq0jehjtdHeF w DGMtWLp9ICp4UTJvrPmpGcYhX AM8VsL8TAN5nEHcoN3qdQfdyw ytjH1sAoz+TVJOOjwvdGQ+PHR k MBY8yFtaLNkrJOXyeG1qOTDsR 2f1AvLyWhB9KXqmR0LhzoL8MS AvqOYkXRDrkIZBvE8qcjawe3j v jscxYhYtCTEpMCk6BGc2DKGxp QuqCvPgWYZ4CcC0NQJ5kRNndS 7khWqhdfbqhQ1rYex+EUM7NQJ 6 FT75EJ74S6RbWpwefJCtzHU+P HRhYmxlIHdpZHRoPScxMDAlJy EcdBkySR0bEx3jEFKcQSDqaVf h cHN (more content not included)... Normal [facility] T3 Free LCon 08-07-2023 Triiodothyronine,Fr ee,Serum LC 3.5 pg/mL Invalid Interpretation Code 2.0-4.4 [facility] Comment on above: Result Comment: Perf ormed At: [facility] [id number] Yumiko Sheppard PhD Ph:[phone] Performed By: #### 1 [id number] #### [facility] (DEFAULT) [address] [place] [address] T3 Total LCon 08-07-2023 Triiodothyronine (T3) LC 159 ng/dL Invalid Interpretation Code 71-180 [facility] Comment on above: Result Comment: Perf ormed At: [facility] [id number] Yumiko Sheppard PhD Ph:[phone] Performed By: #### 1 [id number] #### [facility] (DEFAULT) [address] [place] [address] Free T4on 08-06-2023 Free T4 [Mass/Vol] 0.55 ng/dL Low 0.61-1.12 [facility] Comment on above: Performed By: #### 1 [id number] #### [facility] (DEFAULT) [address] [place] [address] Provider Orderson 08-06-2023 Provider Orders [id number] Normal [facility] Coding Summaryon 05-06-2023 Coding Summary [facility] DtbytdjuAJs7cBs+PGhlYWQ+P X8FRRSuM42vlRGuwO9nJ6QRHE lOSywgQVBQTElOSyIgbmFtZT1 kaXNjZXJu IC8+IU0wQUGuKyfhaXZhh5A2t RN3X10pfm0oZVxyxVC6TXQwYf Lbymwfg8mqePp6XAtqDdaoUzB t YWIeyG95GKD6kB04Rl07zLNml KKcg7cpaJh5MbWaREFoNSH8eH wdLJryt8UnMAOpO89gvSEmf3I 6 PRCgfDrnpQCfEaRjmVZ7pT3bH Bhimtdlo4sqrijgYhy2cj96kK Ggj5X4oRS1U9AodaV3EHIrnCS g MmiqpEEVlO1onjxgw1ezxariV iSkZKJdGDx9IAz3AYCnuOzhHk PeYG40LBC7YRBziyJjZ3KsGLU s hSqjEgN2p3O9Fu8OZ6KIPnehC 1VNTUFSWTwvdGQ+MU76qu48J0 UvVsmbDfe2YGRqMHA5lBJ0mV1 n PXPwSDjhm1I9qIM0F9SoxqSad w4hw4kyVCVuFUzrO12liTZyl7 T3RCNrvKG1QJKrjXjuQlLixF4 3 Oyc+EMAzxCwnx6LcVzgwp9ccw 1lvnBx5FyacXZZiicVayTaxAT G0d9FiWc0tFXBbaKR3kBR2uQ9 i JjJpUnS6ZBvdZ259McWfsSHpK zqzJ61cX1DosLU+ZUVfTrb3FC RzrYajVP8jX7BdFOZnlugdvGF m oOfiEB1qYIWgxtqiICMtxT4yH NQdX2y1ChEoHdN2FLxgO0JrUU NujdqnDm06mY5hFoHmBrR6VDr u S0TzrbP5WDMmhRKzHNkbOFO7R 47mz1V4CCUlSQPbONZ9sZF4sS 1hbGlnbjogbGVmdDsgdmVydGl j UQziWUsuF977VQDdyHjlZiHkB GluZyBEYXRlOiAgMDgvMTYvMj AyMzwvdGQ+KPGyYZM7rWhaINY n vFMxYUeiUp6juVehzYzhHO2qL ZAkqqsgRYMjuE7jSYCoiDLwiZ urNK0zIAMpgngds018MpIbURT 0 JLGviNJdD4KztZ8eGqDjFQXzS GJiO6BgiYUlAGbkX365JStlTs P7ROAqstWfS4SaLWJflBnxXcB 0 h1U8Bf1Ps6BzyodtQ0ZbeTHjZ sNzMemsXXa5C7QqAugemHJ+PC 96VZQwSX23VAt7NQO1uZjqBGz i WDDbV5FxiA9xKvXrBCGeCBKyS yc+PHRhYmxlIHdpZHRoPScxMD PmXtXyeAjtCC6cGc0oJYQhKRS v dZqsoEMuXdEgo5wtKBDlYWwmV G7fkRuzL1XacQO1REXmo8y0Aa 28V80wO4VxhTG+FSXkuBF6qRM 0 uQ5iYlWhDdI8LCtiU474LdZho PFkDztqy8yve2sudAz0MtZ0EV QrkwLmwZyzFVQ5w5BtEi22T54 s IHdpZHRoPSIxNSUiIHZhbGlnb m3arU8sSd3+VLRxwWZ1tYI0oN 6kWuCwUdX0WTkbY139IdStcDB v Cbboh8zsm5oyoLu0ByWmUCMuw bEqsUehYYF8i4RtIj88X8LghJ wpz4RuJdf3ng12aJUjq5C0tHA 9 U0PmYCRrduiskQBqzLkyCX5yI LReyssaGVFdjP4zIIAxG9m4Uh GpJbQ5ZOwyC3YregR3OECukFZ g CLEsaTAGaE2gplnlh5gcgafwN uLiVLDvJPc0SZc5YIWlmAmbPh RpSNE6NaX8BAF3hNVgzG7xzKu n yytyaW7lOed+KKW2tFLzwEHQU N6tVnmjvKI+YVSmKXU3bDiyEL sdTMYxrC5gAOBhW8d9NdCcHkM 1 MNneW5IeeuP5FDRvkGVoQEMoo NWIzP9iquqeq6dmvpexCvMdTV AfMUu4KGq7HWGelLdvHqAqYDQ 0 RqM0DTZ4rPMgdN5juTgrpflqs G9wOyc+UdblzXxmYYU1KRs6Z1 QiZgo2MYTbgYnkRW0neXLmUHg u De3xpCtzwGbrWA8dZNQprbuys 689UbXdk5cbTIGcdHHnSJcvSA G0J12oc4P9IOPhSMRmOCC7zXT 4 fG8wrLuvgyntcUElmNqbxrOmf GgvJCdqEYoqJ603NRWniWebUi IzFPc6Y4LzWwk6ZOEphVgfTG1 n qKSwDJwnPd8bdHreuXvjQZ4zP TBgiveen300HsWef2dwSBMxiN IuQMzdGNI9W54vd9G7ZQUzPKR w VVY1tTC4yB6wrQqoatkwmIRxx SfrfwIosYnaJTioAOzfW142NJ AcvKrnNoOkyFo8E8QyVof0SSD z iMizYY3nvIFlATjpEi8txDrbh HgbOF5hTCZoyzcrc817HzQqj0 jzEKTbwJLaJKpyDCP7Z85rf2C 6 GOBvLHEjXHQ7qCR1yK9qaZezj jogbGVmdDsgdmVydGljYWwtYW dbE503JKRqcOawNmAzrXnrsaI g MLrfUVy7O3LgCxdqdWN+PC90Y ODiPB97bBEgpQHjd7iaoSg9Xx QvUARhMCQ5gPtwQFnxz7MrHGU t V43zuKXmk5S1PNYdtHnpnLVrK fZwiHT0rN6mEDfquwwsd0moxd teYsliv9wibb88vT70S12wFZx p VNThMTKfBHIzRPTygHmsjg9fq G9wIi8+FKHlbRG5bWD0sS9xCG IfDuL2BJnkN044UmWpqKYaLzy j o9chw4spdQx1NvU9WFKawqFfi BkgHDY2n4KeZa95K28nMMumCR HhUOSkERDdCAMsyMjlmv2wdX3 w Ii8+CNTzcPN6nVL8uB2sLtAwV wL1ORexC112XdDugKGwWhtlR7 1qG8AyzKJ+TZTeOka9VWBqsKo s TE2loTBlLDviSp9uNHF9ZxAgI qWyANymC7EyEBGqvrbinebalK D7OERjHKHbvK66Bl7thZkyYRI w pGEKeH9ljrcbm0vgxuqtSxSpE KJmTIu6OQy7ZWLdwNrtTiGrDX D6GuP9GKA5oWSacJ2ejTzcqdj g nU5hC9GwELWdbhvpUo30iP6uN sDfUoW7PQykSmk+HmBZUh0aCi JCSNWoEDtGP5kNXoPGYI16NF2 8 zRFjf0A9fYW0Q0OiMHOpuxghx wqqtXZ0SEBbTAVkmL29uPDmCS fkEh0qa1Q0s492MBIvDIUtzE9 7 Un7jzGtuENVoyKUAwO2vxbzyl 3xwquskCyUaSBTyYBi2ZWy3CP ByaGsyDbLiHCN9GtQ1WYZ5xZF h mS2bwXplxmkemI1yIyq+MTAvM VOoFIn3KcytiVZ+KBMfHOH0dU ntDPmcSRSbjJ3aGJEgJ5z4EqR w EnJ5SYfoV3SvMJIprbpfHr96z E9xZoEuAeW9OAepF8FltmA1LQ EqlIBmFEuzUNP6F80fi8D2LSW w BFSzKQN4xJJ5bQ3xcVdutmbcf GVmdDsgdmVydGljYWwtYWxpZ2 04PRZkwDymNcU3VZxeEXWeYR7 0 UT50dQCjw9D7nJG4K4MpMFJif cnmscbolKV5ZPOcBCLqnY31yX QxVEyvNf1jt5N7w240DSQzSXI w hN46Zy0vsQntNRZezIKAfE9dc klvp7oopcvrBmKpTWGkBIr1ZL n4UXTzdMcwCdCoUGV1VlR2XIX 0 tOZqzV7etXunsqjylL0fZcx+R rMDOBxUGQ70FS75hEGau8Z0mB H5B0LnRIMilwtbztqjsCO1TIW u TWNuyZ92gAYuJDvcCv6cv6E4g 527KNOiLWUrwK62Gd8tsOmaQG LifKQAeO7bairfn3zzdladBuR w RMTvFMt5WMb6YZHzzOpcDhCsX VH3LiK3QLQ1mYCjwQ1slCfyvm kkdC7wYfz+L2V8E7AfOkmwbNH + WO20OHTdYB82vEBuaARao9nnd Ij3TyFeWRIsSCK9fKbhSXizg9 ThKFOjB25mjIEsd3X4VHYkpFi h cTGiTzQobHZ9eL7lXGjrpbukb 0icyyoeBoqgx8twsk74cJ51B8 9sIHdpZHRoPSIzMCUiIHZhbGl n ek9ynB2mCh1+EGHjxTV0mBG2n M3bByYyQkL0FFpzL197HzIraL XdGhroj7aog4gqdSm6LaFuLWV g cdTxiHdbXTD2a4SaVr52P66aI HdpZHRoPSIyMCUiIHZhbGlnbj 7vrG6lQh8+GX0gk6uzmf31rY2 8 dHI+OZIyEUN1pJqoDFrxCTHxb N3uUSrfQuJ1NURkKwSrlK73gT JiKBvhNo4thJnueWvqWX4lMUD p eopgs407YeGjj9ueHYQyvRDlB PckDWI9U16jn4O6FTJvPRFsAY T0hIN9qW4tbDkhwyqgcFCazDs g ohTjtPpmLNhiFMevV577ZLWus KrjYyZyuJRhA2fjnbGRXO2vAr wvdGQ+OOBxIYJ4uDqwGXfrVDM k jP3sLJZfO2x3QxCcAfC7FZfwU 9PodoD2UOZseEVpOQFouAAWcQ 7jhqyvb3cpklcxObGzVKAtMAz 0 DWg7LYVcoRdaQvPrANF8NwE5Z MP8uSSgeD0rmRzxyjkjqW8yDb c+RklOOjwvdGQ+AZMkXWZ8oIw l PIlpFPTvsK8vTORsF9j3GvMxZ cE2MNpjG5ZhzpX8MHQvjMZfQE WkcPBWyW7lezacx5fqmemmUjK w UOJjYMi4ZUf1IOQqcHyxVyDbW YW7ZaT8NIV6cOBjkD6ozCipse mmsU5hYpv+TVJOOjwvdGQ+PHR k QIA1iHxnXFqtTXIpoY5gIKZiO 9y2GwSkJdH3LDtmT1LejzW4AZ CmvSDrZIOwaRXFrW1ikpdul0l v axolTcFjLVZkTTn0FDj3QDQgn IikZmXpKGO3MfE2WBS4sINwdI 0rqPfjxvlbmP2nZgq+QJX8WKA 6 II54XH02A6GuFmfaiJEyuCA+P HRhYmxlIHdpZHRoPScxMDAlJy RcaHsgPZ4sFr0iXWIeVIVieGl h cHN (more content not included)... Normal [facility] T3 Total LCon 05-06-2023 Triiodothyronine (T3) LC 141 ng/dL Invalid Interpretation Code 71-180 [facility] Comment on above: Result Comment: Perf ormed At: [facility] [address] [id number] Yumiko Sheppard PhD Ph:[phone] Performed By: #### 1 [id number] #### [facility] (DEFAULT) [address] [place] [address] Free T4on 05-05-2023 Free T4 [Mass/Vol] 0.52 ng/dL Low 0.61-1.12 [facility] Comment on above: Performed By: #### 1 [id number] #### [facility] (DEFAULT) [address] [place] [address] Provider Orderson 05-05-2023 Provider Orders [id number] IFF Normal [facility] TSHon 05-05-2023 TSH Qn 0.06 m[IU]/L Low 0.45-5.33 [facility] Comment on above: Performed By: #### 1 [id number] #### [facility] (DEFAULT) [address] [place] [address] Coding Summaryon 04-18-2023 Coding Summary HTMLBase 64 JifbsntySGe4lOh+PGhlYWQ+P V4EXPOkK80bvQHhmP2oG9HLWQ lOSywgQVBQTElOSyIgbmFtZT1 kaXNjZXJu IC8+QW3fRWXoXpsnoLRoz4M9b EU6Y66mbu5uERpspQD5QVEvVk Xpsvoqo9wpsAu1UZauQbkqYqE t RQCzhA75GGO4gW98Zz51bETzz JZms2gbhXd4JwLvHSQqCTZ8rD jlZMgwm2TwREXjU68luTDvk1D 6 KHUcmPpimDWoDzFvdEI8uT9sH Grxnwrzj7qdxrxzMoy6kn97fA Lem0S3xIK2A3RvxyR0TLMbuMZ g JppfoPPIdU0zgizra8rpgvcnY uQuCNBpUOg7AJw5HZQyoJrzRw PeDW38GBU4ZQWlqpUnB8SaVBS s bPhxDjK1b0K1Ek7CB1NMFtndD 1VNTUFSWTwvdGQ+NZ45qa83U3 DcEcsvQdk1NWTcQXM6lIT5nN5 n HQSyCOfgx4E6mHI4N6WqfcCzb w7xt2bcFQFeVGzoH09joIGyi0 E7SRDvrCW5TEAmyPntTeAhfE8 3 Oyc+LIKilXjhy7MwNozir0plf 8ibcUo6NlrqJQEbscVvqSpnIS B8v4QwIi2kDGUytZS6gQA9zS6 i BnPrQoI5OZcpE793HoKzvDOiT vhsO37bO7PafDO+HNZqPyv9JE NpjYjpUB9gY3SzEULgngnmxZW m mImpSV3wBFVwozijTUZqxI4kZ SQhJ5z7RxSwSuW8BEcfD4HkAQ CmrvyhIg73fY4eDfGgJlE3BDs u O0DkrpL2QSIicLFfITsyOXE3F 17ms6F5QEMgUYEeLWJ6oRZ7vA 1hbGlnbjogbGVmdDsgdmVydGl j CNwrDSqmO718YBTbzEpvIoEqW GluZyBEYXRlOiAgMDcvMjgvMj AyMzwvdGQ+HYYkOSR3xZuiRBJ n zXSiDSyiVq9nmUflqNjtDV2fP BRliiinGKXggP1xWJOqrGUjcJ jhNY1uIPOlpcqkm191VhGpEBG 0 BZQdcTRfR8QnvT1kEpJgRDSaC DNwX8BlgGGqUCslE626ACwzZb K6SZLawfDiD8IuYMWuiPntKfO 0 q4H5Kv8Xb8JidmmsK2PguXPwO aGiUsalLSt5E6TzJgdgqGT+PC 48LCOyCO45UUc9UBT8vGdmSDl i TJEoQ9KcaA0mTmBrHJKfUBFiP yc+PHRhYmxlIHdpZHRoPScxMD DnWxMdyCjwVU2xYk7aIIIzOWV v tNumqRIvQaWha1xvTSMqVEykR A1mmMrrC1DbsGT4RUNny3b5Ou 70O32pJ9JplKK+VPVycBM2nZN 0 lT7jFpClRwJ1PQgnJ957KqAlu WJoTwjvl2qis7yglVe6LnY5PB ZfztIfvYmkSMU2y6MhHd92N01 s IHdpZHRoPSIxNSUiIHZhbGlnb p4hgF2yMi4+WJBmqQO8fZO2pX 8wNwMeNqU1RFffA604OhDijPR v Tkfgg1evj5xdbZi7VyCdVCMww qTaaXcjDIR6i8VbQh53H2OvgK jxb7WeLyx7gj17fXIcp5G2yGS 9 D7ZxKCQtsrwzkRXtyAolMH9tL XZwlrfqHJTskD4xFLZrC6d4Ju HhKwE5IZclM5TllcV2ELBucSF g OPXpuKOKgE9tvvrab8dvznheR cEuTQYrRLk6UFo5SDDtgVatZh JdJLF7JaW7KHX0vXRflR0tbVy n dodlxY8pIyw+NZQ8jWHdzMEHB M7pGufazGF+CRKmJRA7nJyzFP czIQGvoF6dUKTtE7h5RyMuQyE 1 MSzuW4MttcV8FRGzcVFfNCJhv ENAfR3cjmtdo5hmcfaiBlJxDP LsKMs9LQo4BUIxkItlSgFmXOA 0 TuM8XEF3jOYgfE6fqGisjhmxz G9wOyc+NyrbcBonNJL9LTc8G1 NwOpx7OWNipHpqDR4wsXHmKFh u Rh2dxXnjzTtdEY3zOIZtpqxul 623FqDsb2znGKEyoVJwIOtjYF B8J53fh9A0YJCpEZHlMJH3aIU 4 hB6jiZwhqdjteTIiiEcvvdWja CvfANddCZdsV454VCMxbYvnNr HgMQr2H4UzGtj6CBNarSsyHO9 n mNQcLRvmLn2qxUvcxWuvAM3oR MAeocnrm529MwIwv8pdOKXqsA JtXAehLWU5R22ll5Q4OOUrHSN w RNT8zGP0pY4bvQmuivmvsUEun QhzqkKowGxbKRnaFTpaT371IH LchPziBzZswGz1V7KmSnb7XKZ z fDehNR1wyDAwQQunHs9xdRwca IcoIJ3dJFWxxbtod092TbEol8 yqOWBavKUdUHxgFVU6F32yf7J 6 RRHdPXXxGKC3fET2wK9fcUjac jogbGVmdDsgdmVydGljYWwtYW twL336UZWiwKccGeRebWgekvJ g PYhsDQc6N4XtJcjcvQF+PC90Y HGgSP12sXMwhOScn6ybfSr5Gd FmZVYgGOL8qTeyBHtti0RtMGR t R17quACsp8P6YRVxiRyvrQOuQ dBibVO3rM8uSQhzmdqsj7zmqy ysMkgkc0jlsj44sN80D83aWXg p BPEmEEGwXPShGOQgpOjjzn3pb G9wIi8+MQXcuOC1cXN0qU1aVR WoJxI9SLgaK278FdBszPRqPmh j g7nhq0gvnCk0EbV2MFCeurTch RgkJTJ3r9DfWr59A83cSMxqEG OdUFCbIKOpFSVinEkzfb5jmQ4 w Ii8+BPKeqEN7cJN8mG3iLwMmD gL0PComV096BvFugZQaKvxsS2 4iG8WvdNA+KOKlKwy6HQUofRh s ZV2zwXWgXXbzHf0iPLV6WmKuU hNoGLyfK1AiFAZbrewxjsunbS I5DPXyEEVdzJ57Zw9emVozTTR w mPIBnV9bivwrn0wejboxDoXnH KLbOYe4LZu7OAOzhFsrDgFbMC K9CpA8FTH3jJHbwM1mbWckpng g sG3iA8IuTZBlzvxhVn64tW6sO eTcMsW1YRquOno+SvZZBn1iPi YIVCWeVLcPR8eTSiOWLU99AR0 8 gUYqq1E0pKE8W2CpRTVnsraik wmknNO8QJQlLIDnhY34wHGvXD mhVx6bx7E8t983VAUpMKPnlX1 7 Xx2dhEivEEEraINRqC1anjkvu 5perhsxMiGrZRNyOPs1HIw9XX VseKhtJsZeIDP7BfF2WGU9jSR h jY0mbFhrcmyvjY3eOki+MTAvM LOmPJt8ZhvwjOV+UIPsNET5bH blSGwlRJTieQ4wKVRpK7f7KkX w LsH6HIraD4QeUJSazoqeKx35j M5qVaMzQoP4IRolO2KgtqD0TR LmlBSlEWroGHB8U30iz3V0GPB w XMEjWNI0dDH4mT6yiJucfrnhn GVmdDsgdmVydGljYWwtYWxpZ2 04ZVJynUlcTxH3KAfeAPNeLD2 0 IT76uEGwi9A0lMH5G9FvWBGfq vgcxmizmFD2ZYFsUBLnkH81xS NfGUhuEz5zk7U6o650RNJhDRX w oB29Rz5gcErwXRNkzZIDfF9ik nuns1vlvvroIrIaVIEgNSs8BI c7OEJiqQwnClQqNWP2TfJ6YRP 0 kMKajH3yjHazjpoduR2pOqx+R pRMSKaBHE27TS28hTObw9N4qP H7D6YfVEOthniqeszlqKF9KYF u DMPetP65rJMiBEakMp4jx7K3a 819AJOpZQYiwW60Uc1nnRplLV NjrVAVpV9pgnxwa4mavqjrLxI w HVOkXKs2LEc3MOVrlAwxMlJqW NY2WsV6PFJ2iRQtnW9qjWklfn icbP6yFjw+V1X3V3SzAehudOL + KA07BDVnDE06dRYnvLQzs7uss Pv1GhXlZSBoAKV2kSxuIYdai6 JrBPCuX68kyKBjy8X1VOFrxCb h hMXaUbRkaYX1nN3mKYotkdgbz 9qilfykWowoa8fsah67yB78Z8 9sIHdpZHRoPSIzMCUiIHZhbGl n na8qyC0oDe3+FGMrrUT8nND2q D3eBwOtLoW8XQrpM880ZcMmsM WjIytlm0huc9kpdHq9ArRbNJR g mdZhbQviUUI4d1MvCc48R60bE HdpZHRoPSIyMCUiIHZhbGlnbj 4upN1zWk7+CT1yq4tnct10oV2 8 dHI+QOYbCGA7uKhdLJnmFMGuk J8uUVglYkE5YQTqNuKjiR15cQ ZpOCzxFx9nwFluyHvyAU8qKHY p rvuaw966OeEac3ugPWFpjDOlE BunXSX4O63uv5J2GJYnPPPlOE D8hLS2eV3lrIylpvaguLKniTb g scPslFvfIFwnREigS343SOHqi RtoEeOrpJGqY0wkzuMAZR2nLu wvdGQ+DRFyUZL1rLkcFYfdYAD k iB7lIUYuZ0q5RvSnVnB2MYuzA 7CmzgG5KSVlqHPxRUUurMKIwP 8vlwtna5gbcfelUlPzOVEcDDa 0 DAv7VSVqaPjxVyCsEHH4IoL0B IP3lRLubJ0yrNzxmnlqxJ1vKp c+RklOOjwvdGQ+JXIhCTG8sBn l EIuoFIFbsN2aQKMkE7t5YuPaV fP7FUirV5MijpE6HLXseWJrJC BpjQBIuK2rpoxhe4dlmedrOaK w UFToESk7KXu4DOFopPifElElW DZ1KyG0JEE6jQTzaY1lwQcopv kzwJ4lMea+TVJOOjwvdGQ+PHR k NUS0wHrcWNsaIMKmlS9iLYXwY 3t3CoLfKqY7BFnlY1IfyxZ4OL JtiUNrBALzgSSMcI9uvgpds6y v amadUlEqRFWvRJc5LSb2IKHeo QyeUwJfDZT9UdR2MJS8hQHmpH 6exWdhtboipO4zDco+HRH9UWE 6 QF57YE67G0ExWcmfjZCihTV+P HRhYmxlIHdpZHRoPScxMDAlJy VlrPmsHI2nDb9iZRKyJYDrwHt h cHN (more content not included)... [facility] T3 Free LCon 07-26-2023 Triiodothyronine,Fr ee,Serum LC 4.4 pg/mL Invalid Interpretation Code 2.0-4.4 [facility] Comment on above: Result Comment: Perf ormed At: [facility] [address] [id number] Yumiko Sheppard PhD Ph:[phone] Performed By: #### 1 [id number] #### [facility] (DEFAULT) [address] [place] [address] Free T4on 04-14-2023 Free T4 [Mass/Vol] 0.65 ng/dL Normal 0.61-1.12 [facility] Comment on above: Performed By: #### 1 [id number] #### [facility] (DEFAULT) [address] [place] [address] Provider Orderson 04-14-2023 Provider Orders [id number]#[id number] FF Normal [facility] TSHon 04-14-2023 TSH Qn 0.02 m[IU]/L Low 0.45-5.33 [facility] Comment on above: Performed By: #### 1 [id number] #### [facility] (DEFAULT) [address] [place] [address] [place] Thyroidon 01-26-2023 US Thyroid HISTORY: History [...] thyroid nodules on ultrasound proposed by the [employer] (ACR) Report reported and signed by Kin Graves on 01/26/2023 1140 Normal [facility] Car Cleaning Supervisor Reverse T3 LCon 01-17-2023 Reverse T3 LC 15.7 ng/dL Invalid Interpretation Code 9.2-24.1 [facility] Comment on above: Result Comment: This test was developed and its performance characteristics determined by [facility]. It has not been cleared or approved by the Food and Drug Administration. Performed At: [facility] [id number] Michelet Barnes MD Ph:[phone] Performed By: #### 1 [id number] #### [facility] (DEFAULT) [address] [place] [address] Coding Summaryon 01-13-2023 Coding Summary HTMLBase 64 QrkgqxtiYQr2cJx+PGhlYWQ+P D0AVOYzP94veYMcmT6OW8mFHZ 8WUQMXHIFCCD9EGO5teNM6VPj uK0QqzjIu XigyvWUzTF21NVr2KXD9aVqfZ TauvR3wbKIsX6t1HeSdZB94nF 32UAhaZBNfIkW0QeFgjukshNI y E4xxGgOuqJCcVgq+PHRhYmxlI HdpZHRoPScxMDAlJyBzdHlsZT 2sZt0gOSLcKEFjxUurjXQmBvI j v9mlHLDmQCkrDZ8lbJnyY0Aoj DU8LEFcy9c9Zc94zTB+PHRkIH I5rWqlHZqxy173MoVfk2hdZKW 3 oEGrANzqEHZ4U00wj9M4LTJnI KItJHP1yEE4pA4irShoxfcmZ3 GytDOpNmK6KUA1wRBkdF6elYy n oqfwsN3wKxm+K16YPH0ESDXIR M5BGsx9O4ExIlmacGR+PC90YW EdKO93sTSuwCCem1lpcCp4QzJ w YDLmNQW1jIsyRKvgl3HdDWWdN 72ldJBrs8Z8ROCyqAgprCQcKb AhtRU0tU0nTRtibahrq2spjxd n Vmkif5pwbu19hF32C14fJHeyR SRzDBJ9ZWPiZGAizZdjtt6vqD 9wIi8+FLyjd0uan8vqwCh3SpP w SOCbyyGhhYayFNY0t2SzWa22Z 4BygHezj0VlGow9mh41yKQrp0 P2rXO6FHanIZPpeW4vPNgqCxL 6 YADgGrIinQ06pAHrALhkRh6mv PnglXhvFR5wLKHoanscYKKfbF 2tTDQeeGWlqLzmCN5qBEVaffs m q316HjNbRAE8NTPyyIUrV2Vwe C5rPhMgAJMeNUZqT5YdlYDdVQ yfK937JIhyLnJ1EDTpdwPzL7P s GFMxxYbdSyO8g3B4Uh0Yx3Eut fmqYCR6RFbxICK6YxI5FhJnIr C8X3UvRim1ZMFnbDyvKA7dY8G h LXUbccwvecoadNP7ACSzAZRcu A73iZNhVAyfIf7td9G9g538QM CrNJYgoI12Cy7gzYnnNPWpfMU U eG8opdexd1mhwbijNoHrASSxK If0MCt4VZPgxNswWlAnJIK2Yk Z5QIW2rFZcxV1urPhmrpwcdY6 w Oyc+R38bbT3fEDB5JBI5vpkfL JCxpmNdKR94UN42R2RrTpglmH FibGU+KZPucaKffWwfPV0fUyT j q3wjt6ReDUdmV0VvTHYpHUsjY wd7LSZjYUO5wKY3qD9aRCQmGU eyq3N9nXA8S5YjzqLwrk4js5p s HAYgZBoaZ22rdUPkn2J9OEDsn JL0WBYavOqoGtBvnK55Vnu+PG TbfWsvn9YzNijcv6coi3lofEb 9 CiExUYAktyHtvLphOJY8b8WrB z50G34uLGkpGWXsPNFoKVCrOR SvhPqayg3lsB5iLn5+PGNvbCB 3 vRO5oX6aDHTuDoP4FLueE322T pIncPTqNsltw5kww6dqhXb0Im ChOJMfxyBvdBveDNX0q5FmTm0 8 F74hSYjnVFAlERIyWECuIRLbi Ouufv0mtX0kDf2+QG4pi9amfj 42zV42oKU+MCPyQUB7fLurKNr w XFMawE8uIZoePoS4GKZlXjMqs S56vCDhXRnmFt8udPiroItbAR 3bHDMlyxtqz988KjFys8gtKRY w rDPjHCxwMTX8T30kb0J7HKHnY GSlBFW1jIF4yW5eyXcwhghsiT HifHlzbhIdqBuzAAqrJXsyY58 6 IHRvcDsnPlBhdGllbnQgTmFtZ Sq2Y5FuQuz0BHPbzCcxSW5ofY FuTUovAr2ejPhugZnqDB3dSGD p anuny759MeTpk6diMSVspSKvT TjvVRR5I06zf1Z1ULRtSFZkKI D9yUO6sJ1tiWqvsubwyDJihHp g dbHffWgiRTolLAqzE038DJIes SuxDwYkskHuPOWwuDM9YE43QK 22gHSpu1Y9rNI2E0JeSIOevry t kofeyBD1INKmHRSdtF40Au3zr MsgDs0zSPMvZUF8MMWqrEZjS6 PvfV5nFuNqJZLqQRYcH3LoeIM t PDgbR349DWldRqD5PMDxoiFtM 2QxVJVdzMxfLnP6i9S7Ud0JB2 H9RW89RD53tDAuv8F4nPN9P1A h JYLvclftgghuoCK4RBSiYPSmi Z93Gw6yvImeZz8fGCUlFCF5WN ObdMBpR7EuhA9yVdEgALOtWIN w X6LcdEYdWMjxI960TSsqQiD4I KXawmRxL6YmSWCrhHujLkO0m4 D5Ds0QISk4XU06GA07lHAfx4N 5 gBT1Y3JeGQAedqwyzdqbbFE7X ZCbUKNalI96Yu7dqBpoPv7qBG MuAUZ2ZKJqyYGrE9NyuK9xLaA j ICFfFZHtC3GiuNUfYSphM198E VrkNgM8XTWkzmDmA1JlIWBwvQ krFuW1j4W0No2UAMNhHU58LVW 5 wCR2XZ30NP71S8GgWtaicELbp +PHRhYmxlIHdpZHRoPScxMD OdHtVnkEhmGH8yYo5kMLIgAXH v hCrfdGPiFjFux0aaMMKgEJoqR T4biEmfH3UihQW4ITFxu1t7Bu 12V92nE8AvlOM+YBWicIR5dDL 0 dD3uKuVaAdS2HDfgF203AvHbp WPsKgkgl4tbi8uftBd4QtU3GC PxhgAddNsqEMV8k3BiZw20Y05 s IHdpZHRoPSIxNSUiIHZhbGlnb t0ylF4iGk0+OXNbgCI6fYN0aQ 9cFeUhTbW7YCehW638TiTihDJ v Ubisl3afo1dltEa5ZrQqGATga sLniTpwATC5b2ZlRd40W4PqaN wpw0JzWxl6bt05iRLth7N4dCT 9 G2NuWFLkvonxyZIhxQgqCU6nR QDkjlmaPRNvhT2gWBNlA3q4Ft RhGbT0RAzwM1GxluX2WZPnoCO g OVksJDG4A75ua8L3HJBdYZTyT KP9lQR6oU6tqYawkvfpuGDicG ueduBtkElgVHlnKCafA337OPN v cRfeDGEyeQ3sHHBtaGDbgKgyC O0hNYUwaxjwCsGKAiPNHZbTMs QAGSJZZZSMKZ6qTPbabSW+PHR k SAY6xCvnMUwnGTJitY0vZAWsM 7g9KrPuTtV7TVlnX7McTHRedf llOv51xG6tNoPmUiV5QRfgN1X v ohZ7IXGanAIuYRzdAND3I24ak 6T0RBRzIFFlDXJ1pXF3aS0leD lnbjogbGVmdDsgdmVydGljYWw t MNnoS517KBOzrDdqXiLgPrP2B hQ2Kdb1Q5ViFki5CULskTdiEX 1euYBuVSgpQj5sxJwsyFukGV9 w NPAdufwyDQPkhF3nWXSomRYij TukEI9pSMFadqmzl964MeRgVU I2FMAunIPoY0AycW5yMmPhAHU w ZZRkV8SwlFYsKLtrY303NYhsT zN3DDYiruUvP2YkLCNnmYimNo R9e7X4Tj89LMWPZFNaaolovGQ + ISHlKYO7qQfuQLjsMPSmeK9vR YIwH7r3PmInHcV0FDbmD1ImIW HnezogCy24yB2lRtEyKnP5RPy u A3LwxxQ5ODDsdYDvPUmyVSP8J 24sd1B5BCThBTIpLWF6qAB4rG 1hbGlnbjogbGVmdDsgdmVydGl j BDciSWqwY245ZDBmaNheFlIEG UFMRTwvdGQ+EIDaPMJ4rTetKY tbHMPjpZ4xNVAuG4d7KdPxWuC 1 LZhiM0RrCVQofdrrJb13yZ3mZ xOgOmU3OZqzI6NgviY0MVSdvP NlZIvgQYO2Q60tq8H9XKVrICX w USA4gTW7bV5drBkvggoekKBcx TkhcqIbfQabSVqiIVddO622ZU XvgLcdYu0HWV04SZ46M2NuNox v dGFibGU+PHRhYmxlIHdpZHRoP RtjJHBqBlKouGkfWG6yDv2gOT PeUPZjyVoayRYaVsLni3rzZSD z QXfrVI2mbWqzS6SqjEG4UWZpd 6u6Ak36Q08jN5RrgRG+PGNvbC T6xEF3jQ8qEbJtQuD2SGrhP95 9 BlRqaCGwUfztg5cex8hwvEe3M rMuEQEgcnMfbYuhTEO1o8BxTm 17D53zDKhzQSBlBRMoTEMuMGI h cVqveu7zfD8uWr9+BPNqsHK3l BQ9eC2dMzIpYmV1EWxnF229Dr AwrUDpGhrwA66zJ3BkwRM+PHR y Ecr2FSBdeAegFI1nmQQdJGbbL b7aWKV8SxUeUbZwROxaQ0BnFL QlesgqoqrbkDQ4EOIvNVUnbT1 7 By1pqAqoLo4kJBVrDPQ3YROqf LAeF2XpqY9gSkAhGNYtLXNnS9 BbwDPxFLoiH059JOirHaZ4OTO l ztPjZ2DpDWHnzUarUfZ6n2B9W l2ViUjdhVMjFT2uIpNgCPk0A6 VlWus1DDUiqJddHS1xxQYwROm u Nj1ncKdquByyPQ0kWPGsiofow 721WpUmr5fyHDFchGSvSWcgRO I2B43pe8Q9WDAuTHBjAYA6hEH 4 wD2bjBvnuraowFUgsXvdbvWxf SvgWHnoTJnvE207AVGysIuaIa VWPqj7S8HxUjl4YXRyvPeaMV3 n cRXbGDxmBj9haScveUodPP8iM LCoiynsh932YhVqj6duWLPjaS DvETiaBTG2Q16as9W6WXQnZFD w KCH7tIC3hY9pxZbenjlqeVIqk PzlzfUvbXhzNMnpTEaiK505SI TbuVaqWo7XKqa4N8FrHkv5VVC z eOgrAG1shKFrMXncDl4yfUydn TkhXF2mTMZohdsht273QwLmf0 wqQIIjxGViEGpvDKL8P89ty3Y 6 ZDLfPMEuIDJ4fYL5iQ1kwQwlf jogbGVmdDsgdmVydGljYWwtYW hxU628ZJAjhKlpWcWaoIWfVyj v dGQ+CU12qa28X2NuHyvlNly7Z WHdFJF8rBA1wO7nXCEeCDmor2 N7uCP9Z1SpuiNmly4qr4gkCOP z ZTo (more content not included)... Normal [facility] Provider Orderson 01-13-2023 Provider Orders [id number]#[id number] FF [facility] T3 Free LCon 01-13-2023 Triiodothyronine,Fr ee,Serum LC 3.3 pg/mL Invalid Interpretation Code 2.0-4.4 [facility] Comment on above: Result Comment: Perf ormed At: [facility] [address] [place], [place] [id number] Yumiko Sheppard PhD Ph:[phone] Performed By: #### 1 [id number] #### [facility] (DEFAULT) [address] [place] [address] T3 Total LCon 01-13-2023 Triiodothyronine (T3) LC 135 ng/dL Invalid Interpretation Code 71-180 [facility] Comment on above: Result Comment: Perf ormed At: [facility] [address], [place] [id number] Yumiko Sheppard PhD Ph:[phone] Performed By: #### 1 [id number] #### [facility] (DEFAULT) [address] [place] [address] Extra SSTon 01-12-2023 Tube Collected Yes Invalid Interpretation Code [facility] Comment on above: Performed By: #### 1 [id number] #### [facility] (DEFAULT) [address] [place] [address] Free T4on 01-12-2023 Free T4 [Mass/Vol] 0.75 ng/dL Normal 0.61-1.12 [facility] Comment on above: Performed By: #### 1 [id number] #### [facility] (DEFAULT) [address] [place] [address]131 SCREENING MAMMOGRAM W/MONSERRAT, BILATERAL*on 10-06-2022 SCREENING MAMMOGRAM [...] IS VERY IMPORTANT TO YOUR HEALTH. CURRENT [employer] GUIDELINES RECOMMENDS ANNUAL MAMMOGRAPHY BEGINNING AT AGE 42. THIS FACILITY USUALLY USES A REMINDER SYSTEM TO ENSURE ALL POSITIONS RECEIVED REMINDER NOTIFICATIONS AT THE TIME BASED ON THE RECOMMENDATIONS OF THIS EXAM. Report reported and signed by Hannah Yap on 10/08/2022 1159 Normal [facility] Car Cleaning Supervisor HCG ( test) IA.rapi d Ql (U)Ordered By: Kwame Noel on 08-18-2022 HCG ( test) Ql (U) Negative [facility] VC CONSULT FOLLOWUPon 2020 VC CONSULT FOLLOWUP Patient: CESAR DE LA TORRE Exam Date: 09/18/2021 : 1975 Gender:F Ordering : DR BECKY TORRES M.D. Admission #: [id number] Family : Order #: [id number] CLICK HERE TO VIEW EXAM RADIOLOGY REPORT [...] Torres MD on 09/18/2021 at 14:06 Normal [facility] VC EXT VENOUS LT LIMITEDon 1 VC EXT VENOUS LT LIMITED Patient: EB DE LA TORRE Exam Date: 09/18/2021 : 1975 Gender:F Ordering : DR BECKY TORRES M.D. Admission #: [id number] Family : Order #: [id number] CLICK HERE TO VIEW EXAM RADIOLOGY REPORT [...] Torres MD on 09/18/2021 at 14:04 Normal [facility] VC CONSULT FOLLOWUPon 2020 VC CONSULT FOLLOWUP Patient: CESAR DE LA TORRE MahiColby Exam Date: 09/10/2021 : 1975 Gender:F Ordering : DR BECKY TORRES M.D. Admission #: [id number] Family : Order #: [id number] CLICK HERE TO VIEW EXAM RADIOLOGY REPORT [...] Dick M.D. on 09/10/2021 at 12:18 Normal [facility] VC EXT VENOUS HALEY LIMITEDon 09-10-2021 VC EXT VENOUS HALEY LIMITED Patient: EB DE LA TORRE Exam Date: 09/10/2021 : 1975 Gender:F Ordering : DR BECKY TORRES M.D. Admission #: [id number] Family : Order #: [id number] CLICK HERE TO VIEW EXAM RADIOLOGY REPORT [...] Hannah Dick M.D. on 09/10/2021 at 12:15 [facility] VC INJ FOAM SCLERO W US MLTI on 09-02-2021 VC INJ FOAM SCLERO W US MLTI Patient: EB DE LA TORRE Exam Date: 09/02/2021 : 1975 Gender:F Ordering : DR BECKY TORRES M.D. Admission #: [id number] Family : Order #: [id number] CLICK HERE TO VIEW EXAM RADIOLOGY REPORT [...] Po (more content not included)... Normal [facility] VC INJ SCL KARLY FLOORMAN VEINSon 1 10-20-2020 VC INJ SCL KARLY FLOORMAN VEINS Patient: EB DE LA TORRE Exam Date: 08/20/2021 : 1975 Gender:F Ordering : DR BECKY TORRES M.D. Admission #: [id number] Family : Order #: [id number] CLICK HERE TO VIEW EXAM RADIOLOGY REPORT PROCEDURE: VEIN CENTER INJECTION SCLEROSING SOLUTION MULTIPLE VEINS SAME COMPARISON: VC INJ SCL KARLY FLOORMAN VEINS, 08/13/2021. INDICATIONS: Pain co-occurrent and due [...] Dick M.D. on 08/20/2021 at 16:11 Normal [facility] VC INJ SCL KARLY FLOORMAN VEINSon 1 10-13-2020 VC INJ SCL KARLY FLOORMAN VEINS Patient: EB DE LA TORRE Exam Date: 08/13/2021 : 1975 Gender:F Ordering : DR BECKY TORRES M.D. Admission #: [id number] Family : Order #: [id number] CLICK HERE TO VIEW EXAM RADIOLOGY REPORT [...] Dick M.D. on 08/13/2021 at 13:00 Normal [facility] VC CONSULT FOLLOWUPon 2020 VC CONSULT FOLLOWUP Patient: CESAR DE LA TORRE Exam Date: 08/09/2021 : 1975 Gender:F Ordering : DR BECKY TORRES M.D. Admission #: [id number] Family : Order #: [id number] CLICK HERE TO VIEW EXAM RADIOLOGY REPORT [...] Torres MD on 08/09/2021 at 13:10 Normal [facility] VC EXT VENOUS HALEY LIMITEDon 08-09-2021 VC EXT VENOUS HALEY LIMITED Patient: EB DE LA TORRE Exam Date: 08/09/2021 : 1975 Gender:F Ordering : DR BECKY TORRES M.D. Admission #: [id number] Family : Order #: [id number] CLICK HERE TO VIEW EXAM RADIOLOGY REPORT [...] Torres MD on 08/09/2021 at 12:00 Normal [facility] VC INJ FOAM SCLERO W US MLTI on 08-02-2021 VC INJ FOAM SCLERO W US MLTI Patient: EB DE LA TORRE Exam Date: 08/02/2021 : 1975 Gender:F Ordering : DR BECKY TORRES M.D. Admission #: [id number] Family : Order #: [id number] CLICK HERE TO VIEW EXAM RADIOLOGY REPORT [...] Dick M.D. on 08/02/2021 at 15:59 Normal [facility] VC CONSULT FOLLOWUPon 2020 VC CONSULT FOLLOWUP Patient: CESAR DE LA TORRE Exam Date: 07/12/2021 : 1975 Gender:F Ordering : DR HANNAH DICK M.D. Admission #: [id number] Family : Order #: [id number] CLICK HERE TO VIEW EXAM RADIOLOGY REPORT [...] Dick M.D. on 07/12/2021 at 16:05 Normal [facility] VC EXT VENOUS LT LIMITEDon 1 VC EXT VENOUS LT LIMITED Patient: EB DE LA TORRE Exam Date: 07/12/2021 : 1975 Gender:F Ordering : DR HANNAH DICK M.D. Admission #: [id number] Family : DR BECKY TORRES M.D. Order #: [id number] CLICK HERE TO VIEW EXAM RADIOLOGY REPORT [...] Hannah Dick M.D. on 07/12/2021 at 16:02 [facility] VC INJ FOAM SCLERO W US MLTI on 07-05-2021 VC INJ FOAM SCLERO W US MLTI Patient: EB DE LA TORRE Exam Date: 07/05/2021 : 1975 Gender:F Ordering : DR BECKY TORRES M.D. Admission #: [id number] Family : Order #: [id number] CLICK HERE TO VIEW EXAM RADIOLOGY REPORT [...] Dick M.D. on 07/05/2021 at 16:49 Normal [facility] VC CONSULT FOLLOWUPon 2020 VC CONSULT FOLLOWUP Patient: CESAR DE LA TORRE Exam Date: 06/18/2021 : 1975 Gender:F Ordering : DR BECKY TORRES M.D. Admission #: [id number] Family : Order #: [id number] CLICK HERE [...] Torres MD on 06/18/2021 at 14:47 Normal [facility] VC EXT VENOUS LT LIMITEDon 0 06-18-2021 VC EXT VENOUS LT LIMITED Patient: EB DE LA TORRE Exam Date: 06/18/2021 : 1975 Gender:F Ordering : DR BECKY TORRES M.D. Admission #: [id number] Family : Order #: [id number] CLICK HERE TO VIEW EXAM RADIOLOGY REPORT [...] Torres MD on 06/18/2021 at 14:28 Normal [facility] VC ENDOVENOUS ABL 1ST V LTon 06-03-2021 VC ENDOVENOUS ABL 1ST V LT Patient: EB DE LA TORRE Exam Date: 06/03/2021 : 1975 Gender:F Ordering : DR BECKY TORRES M.D. Admission #: [id number] Family : Order #: [id number] CLICK HERE TO VIEW EXAM RADIOLOGY REPORT PROCEDURE: VEIN CENTER ENDOVENOUS ABLATION FIRST VEIN LEFT COMPARISON: None. 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 Informed written consent was obtained by fl and Kade jarrett. Time out procedure was [...] of the foot pedal and a single delivery/journeyman pipe welder was created. The total number of Joules [...] Dick M.D. on 06/03/2021 at 11:54 Normal [facility] VC COMP CONSULTATIONon 05-06 VC COMP CONSULTATION Patient: EB DE LA TORRE Exam Date: 05/06/2021 : 1975 Gender:F Ordering : DR BECKY TORRES M.D. Admission #: [id number] Family : Order #: [id number] CLICK HERE TO VIEW EXAM RADIOLOGY REPORT [...] arterial disease 5. CEAP: C2, EC, , VT PLAN: 1. Continued use of compression stockings [...] Hannah Dick M.D. on 05/06/2021 at 09:47 [facility] VC VENOUS REFLUX HALEY LMTon 0 05-06-2021 VC VENOUS REFLUX HALEY LMT Patient: EB DE LA TORRE Exam Date: 05/06/2021 : 1975 Gender:F Ordering : DR BECKY TORRES M.D. Admission #: [id number] Family : Order #: [id number] CLICK HERE TO VIEW EXAM RADIOLOGY REPORT [...] echogenic thrombus seen Compressibility: Normal Flow: Normal Marine Superintendent: None visualized Tech Note: The left SFJ/AASV [...] Hannah Dick M.D. on 05/06/2021 at 09:11 [facility] Coding Summaryon 07-28-2019 Coding Summary CODING DATE: 019 [facility] STATUS: Home PAYOR: Commercial Insurance [...] Romina Courtney Date Saved: 07/28/2019 03:17 pm [facility] Provider [place] 07-27-2019 Provider Orders [id number]#1.00OTGTI [facility] Release of Informationon Release of Information [id number]#1.00OTGTI [facility] T3 Free LCon 07-27-2019 Triiodothyronine,Fr ee,Serum LC 2.4 pg/mL 2.0-4.4 [facility] Comment on above: Result Comment: Perf ormed At: [facility] [address] [id number] Yumiko Sheppard PhD Ph:[phone] Performed By: #### 2 [id number] ####[facility] (DEFAULT)[address] [place] [address] Free T4on 07-26-2019 Free T4 [Mass/Vol] 0.86 ng/dL Normal 0.61-1.12 [facility] Comment on above: Result Comment: Spec imens that contain high levels of Biotin may cause false high results Performed By: #### 2 [id number], [id number], [id number] ####[facility] (DEFAULT)[address] [place] [address] TSHon 07-26-2019 TSH Qn 2.03 mcIU/mL Normal 0.45-5.33 [facility] Comment on above: Result Comment: Gene ral Population (males and non- females, aged 21-88) 0.45 - 5.33 Females, 1st Trimester 0.05 - 3.70 Females, 2nd Trimester 0.31 - 4.35 Females, 3rd Trimester 0.41 - 5.18 Performed By: #### 2 [id number], [id number], [id number] ####[facility] (DEFAULT)[address] [place] [address] Provider [place] 01-12-2019 Provider Orders [id number]#1.00OTGTIF [facility] Provider [place] 01-06-2019 Provider Orders [id number]#1.00OTGTIF [facility] Coding Summaryon 01-05-2019 Coding Summary CODING DATE: 019 [facility] STATUS: Home PAYOR: Commercial Insurance APC [...] Palomino Date Saved: 01/05/2019 09:39 am Normal [facility] T3 Free LCon 01-05-2019 Triiodothyronine,Fr ee,Serum LC 3.0 pg/mL 2.0-4.4 [facility] Comment on above: Result Comment: Perf ormed At: [facility] [address] [id number] Yumiko Sheppard PhD Ph:[phone] Performed By: #### 4 [id number], [id number] #### [facility] (DEFAULT) [address] [place] [address] Free T4on 01-04-2019 Free T4 [Mass/Vol] 0.83 ng/dL Normal 0.61-1.12 [facility] Comment on above: Result Comment: Spec imens that contain high levels of Biotin may cause false high results Performed By: #### 4 [id number], [id number] #### [facility] (DEFAULT) [address] [place] [address] TSHon 01-04-2019 TSH Qn 2.15 mcIU/mL Normal 0.45-5.33 [facility] Comment on above: Result Comment: Gene ral Population (males and non- females, aged 21-88) 0.45 - 5.33 Females, 1st Trimester 0.05 - 3.70 Females, 2nd Trimester 0.31 - 4.35 Females, 3rd Trimester 0.41 - 5.18 Performed By: #### 4 [id number], [id number] #### [facility] (DEFAULT) [address] [place] [address] [place] Thyroidon 01-04-2019 US Thyroid EXAM: US [...] MD 01/04/19 3:38 pm Technologist: Jalyn ELY [facility] Vit D25 OHon 01-04-2019 Vitamin D 25 OH 26 ng/mL [facility] Comment on above: Result Comment: In 2 [...] J Clin Endocrinol Metab 2011; 96 (7): 4814-1053. Performed By: #### 4 [id number], [id number] #### [facility] (DEFAULT) [address] [place] [address] Coding Summaryon 12-09-2018 Coding Summary CODING DATE: 019 [facility] STATUS: Home PAYOR: Commercial Insurance [...] Wendy Palomino Date Saved: 12/09/2018 01:01 pm [facility] Provider [place] 12-08-2018 Provider Orders [id number]#1.00OTGTIF F [facility] T3 Free LCon 12-08-2018 Triiodothyronine,Fr ee,Serum LC 2.5 pg/mL 2.0-4.4 [facility] Comment on above: Result Comment: Perf ormed At: [facility] [address] [id number] Yumiko Sheppard PhD Ph:[phone] Performed By: #### 2 [id number], [id number], [id number] #### [facility] (DEFAULT) [address] [place] [address] Free T4on 12-07-2018 Free T4 [Mass/Vol] 0.84 ng/dL Normal 0.61-1.12 [facility] Comment on above: Result Comment: Spec imens that contain high levels of Biotin may cause false high results Performed By: #### 2 [id number], [id number], [id number] #### [facility] (DEFAULT) [address] [place] [address] TSHon 12-07-2018 TSH Qn 2.68 mcIU/mL Normal 0.45-5.33 [facility] Company Comment on above: Result Comment: Gene ral Population (males and non- females, aged 21-88) 0.45 - 5.33 Females, 1st Trimester 0.05 - 3.70 Females, 2nd Trimester 0.31 - 4.35 Females, 3rd Trimester 0.41 - 5.18 Performed By: #### 2 [id number] #### [facility] (DEFAULT) [address] [place], [place] [id number] Coding Summaryon 08-13-2018 Coding Summary CODING DATE: 018 FINAL [facility] STATUS: Home PAYOR: Commercial Insurance [...] [place] Date Saved: 08/13/2018 08:53 am Normal [facility] C Throaton 08-09-2018 C Throat Ordered by Discern. Normal throat gene isolated No pathogens isolated [facility] Comment on above: Performed By: #### 4 [id number], [id number] #### [facility] (DEFAULT) [address] [place] [address] ED Clinical Summaryon 2017 ED Clinical Summary [facility] ? Urgent Care [address] [place] [address] Clinical Summary PERSON INFORMATION Name: EB WILCOX Age: 43 Years Sex: FEMALE : [birth year] MRN: Acct#: Visit Reason: UC - Sore Throat; C/O WHITE SPOT IN THROAT Arrival: 08/07/18 14:50:00 Discharge: 08/07/18 15:27:00 LOS: 000 00:37 Check In: 08/07/18 14:50:00 Checkout: 08/07/18 15:27:00 Address: [address] [place] [address] PCP: Provider, None PROVIDER INFORMATION Provider Role [...] Patient/family/caregiver verbalizes understanding of instructions given Comment: [facility] ED Note - Physicianon 2017 ED Note - Physician Patient: EB WILCXO Age: 43 years Sex: FEMALE : [birth year] [...] treatment plan. Impression and Plan Diagnosis Tonsillolith ([id number] J35.8, Discharge, Medical) Plan Patient was given [...] 08/07/2018 17:00 EST] Juan Miguel Heard Normal [facility] ED Patient Summaryon 018 ED Patient Summary [facility] ? Urgent [address] [address] PATIENT DISCHARGE INSTRUCTIONS Patient Information Name: EB WILCOX Age: 43 Years Date of : [birth year] [facility]: [id number] Reason For Visit: UC - Sore Throat; [...] 10/15/2005 Document Revised: 05/13/2017 Document Reviewed: 12/14/2014 [employer] Interactive Patient Education ? 2017 [employer] Medication Information: The exam and treatment you received today in the [place] were for an urgent problem and are not intended as complete care. It is important for you to follow up with a doctor, nurse practitioner, or physician?s pediatric medical assistant for ongoing care. If your symptoms [...] so we can reach you if necessary. [facility] Emergency Department has provided you with a complete list of medications post discharge. 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 Any specific questions regarding your chronic medications and dosages should be discussed with your primary care physician(s) and/or pharmacist. New Medications Other Medications thyroid desiccated ([place]on Thyroid 60 mg oral tablet) 1 tab(s) Oral every day. Visit Information Visit Diagnosis: Diagnoses This Visit Tonsillolith (J35.8) UC - Sore Throat ([id number]) If you received any narcotics, sedation, or [...] Stop date 08/07/18 15:02:00 EST, Nurse collect, [id number] Radiology Cardiology Viruses or Bacteria What?s got [...] Disease Control and Prevention May 2014 Normal [facility] Strep Aon 08-07-2018 Strep A Negative Normal Negative [facility] Comment on above: Performed By: #### 4 [id number] #### [facility] (DEFAULT) [address] [place] [address] Strep procedure control Pass [facility] Comment on above: Performed By: #### 4 [id number], [id number] #### [facility] (DEFAULT) [address] [place] [address] [facility] [place] 018 Urgent Care Record [facility] ? Urgent Care [address] [place] [address] PATIENT DISCHARGE INSTRUCTIONS Patient Information Name: EB WILCOX Age: 43 Years Date of : [birth year] Reason For Visit: UC - Sore Throat; C/O WHITE SPOT IN THROAT Arrival Time: 08/07/18 14:50:00 Primary Care Physician: Provider, None Attending Physician: Juan Miguel Heard Comment: Visit Diagnosis: Diagnoses This Visit Tonsillolith (J35.8) UC - Sore Throat ([id number]) If you received any narcotics, sedation, or [...] and treatment you received today in the [facility] were for an urgent problem and are not intended as complete care. It is important for you to follow up with a doctor, nurse practitioner, or physician?s pediatric medical assistant for ongoing care. If your symptoms [...] so we can reach you if necessary. [facility] has provided you with a complete list of medications post discharge. 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 Any specific questions regarding your chronic medications and dosages should be discussed with your primary care physician(s) and/or pharmacist. New Medications Other Medications thyroid desiccated ([place] Thyroid 60 mg oral tablet) 1 tab(s) [...] 10/15/2005 Document Revised: 05/13/2017 Document Reviewed: 12/14/2014 [employer] Interactive Patient Education ? 2017 [employer]. Viruses or Bacteria What?s got you sick? [...] for Disease Control and Prevention May 2014 [facility] 04-15-2017 CNCO Letter TextToll Free : [phone]/cancer [facility] - [address] [address]Ohuwx: [phone]: [facility] [place], [place] [address]Uqtri: [phone]: [place] [id number] [place], [place] [address]Trcwp: [phone]: Cornelius Palomino M.D., Roni Cardenas M.D.Abdulaziz Mendoza M.D.Slava Carrillo D.O..Gustavo Gottlieb M.D.Jennifer Mcdonald M.D. Kaur Castrejon M.D..04/15/2017Eb Mcguirec [phone] [facility] [address]Ce Bhavik GonzalezBE[facility] OB/GYNDear Eb Boone's lupus anticoagulant panel was negative. She has no evidence of theantiphospholipid antibody syndrome/lupus anticoagulant. I have given thepatient reassurance with the lab results. Thanks Dr Gonzalez, and kindestregards,Sincerely, Maeve Cardenas MD(signed electronically to expedite mailing) Normal [facility] APTTon 04-13-2017 aPTT 29.7 s Normal 23.0-32.4 [facility] Comment on above: Result Comment: The [...] reagent. Performed By: #### P T, PTT ####[address] [phone] + CBCon 04-13-20 17 Absol Gran Count 4.44 k/uL Normal 1.45-7.50 [facility] Comment on above: Performed By: #### P T, PTT ####[address] [phone] Erythrocyte distribution width Auto Ratio (RBC) 12.5 % Normal 11.5-15.0 [facility] Comment on above: Performed By: #### P T, PTT ####[address] [phone] Erythrocytes (RBC) 4.05 10*6/uL Normal 3.90-5.20 [facility] Comment on above: Performed By: #### P T, PTT ####[address] [phone] Hematocrit (HCT) 38.2 % Normal 36.0-46.0 [facility] Comment on above: Performed By: #### P T, PTT ####[place] [address] [place], [place] [phone] Hemoglobin mass conc (Bld) 13.2 g/dL Normal 11.5-15.5 [facility] Comment on above: Performed By: #### P T, PTT ####[address] [phone] MCH 32.6 pG Normal 26.0-34.0 [facility] Comment on above: Performed By: #### P T, PTT ####[address] [phone] MCHC mass conc (RBC) 34.6 g/dL Normal 30.5-36.0 [facility] Comment on above: Performed By: #### P T, PTT ####[place] [phone] MCV 94.3 fL Normal 80.0-100.0 [facility] Comment on above: Performed By: #### P T, PTT ####[address] [phone] Platelet mean volume (PMV) 10.0 fL Normal 9.0-12.7 [facility] Comment on above: Performed By: #### P T, PTT ####[address] [phone] Platelets 252 10*3/uL Normal 150-400 [facility] Comment on above: Performed By: #### P T, PTT ####[address] [phone] WBC (Leukocytes) 6.97 10*3/uL Normal 3.70-11.00 [facility] Comment on above: Performed By: #### P T, PTT ####[facility] [address] [place], [place] [phone] CNOVSPon 04-13-2017 CNOVSP Visit (SP) Office (HEMASA) EB DE LA TORRE ([id number]) 1975 FDate Time Provider Department04/13/17 4:00 PM [...] laboratory test PTTPAST SURGICAL HISTORYNo date: BREAST SQFSCC6412/09/2016: DANDamp;C, DIAG AND/OR THERAPEUTIC Comment: Dilation ANDamp; [...] 14.4 oz) LMP (LMP Unknown) BMI 27.06 kg/c4Qcrcyil Appearance: alert and oriented, appearing in no [...] ANTICOAG PLMaeve Cardenas, DONeferring Provider: BHAVIK GONZALEZ [[id number]]Allergies As of Date: 04/13/2017(No Known Allergies)Date Reviewed: 04/13/2017Reviewed by: Bren Berry - Fully AssessedPrimary Visit Diagnosis:Less than 8 weeks gestation of [Z3A.01]Order(s):ABS GRAN CT + CBC [SQAGCCBC] Order #: [id number] FUTURE PROTHROMBIN TIME/PT [SQPT] Order #: [id number] FUTURE ACTIVATED PTT [SQPTT] Order #: [id number] FUTURE LUPUS ANTICOAG PL [SQLUPUSP] Order #: [id number] FUTUREPrescriptions as of 04/13/2017 Sig: + DHA ORAL Take by mouth. PROGESTERONE MISC ARMOUR THYROID 60 MG TABLET Take 60 mg by mouth once aliyah*Problem List As Of Date 04/13/2017 Noted Resolved Less than 8 weeks gestation of [Z3A.0*INVALID FOR*Encounter Status:Closed by MAEVE CARDENAS MD on 04/13/17 Normal [facility] Lupus Anticoag Panelon 04-13 aPTT 29.2 s Normal <33.5 [facility] Comment on above: Performed By: #### L UPUSP ####[facility] [address] [place], [place] [phone] aPTT 29.9 s Normal <37.3 [facility] Comment on above: Performed By: #### L UPUSP ####[facility] [address] [place], [place] [phone] aPTT 33.1 s Normal 24.4-33.4 [facility] Comment on above: Performed By: #### L UPUSP ####[place] [address] [place], [place] [phone] aPTT 28.6 s Normal 23.0-32.4 [facility] Comment on above: Result Comment: The [...] APTT reagent. Performed By: #### L UPUSP ####[place] [address] [place], [place] [phone] Beta2 Glycoprot IgG <9 Normal <20 [facility] Comment on above: Result Comment: < 20 SGU Wtacdfwz60-85 SGU Low Positive> 80 SGU High PositiveThese results were obtained with the [employer] Hub QUANTA Lite B2 GPI IgG MATTIE. B2 GPI IgG values obtained with different manufacturers' assay methods may not be used interchangeably. The magnitude of the reported IgG levels cannot be correlated to an endpoint titer. Performed By: #### L UPUSP ####[place] [address] [place], [place] [phone] Beta2 Glycoprot IgM <9 Normal <20 [facility] Comment on above: Result Comment: < 20 SMU Lgazgyko61-83 SMU Low Positive> 80 SMU High PositiveThese results were obtained with the aXess americava QUANTA Lite B2 GPI IgM MATTIE. B2 GPI IgM values obtained with different manufacturers' assay methods may not be used interchangeably. The magnitude of the reported IgM levels cannot be correlated to an endpoint titer. Performed By: #### L UPUSP ####[address] [place], [place] [phone] DRVVT 1:1 Mix 37.4 sec Normal 32.7-46.7 [facility] Comment on above: Performed By: #### L UPUSP ####[place] [address] [place], [place] [phone] DRVVT Confirm Ratio 1.07 Normal <1.21 [facility] Comment on above: Performed By: #### L UPUSP ####[place] [address] [place], [place] [phone] DRVVT Screen 35.0 sec Normal 32.7-46.7 [facility] Comment on above: Performed By: #### L UPUSP ####[address] [phone] Hex Phase Confirm 54.4 sec Normal 45.1-64.1 [facility] Comment on above: Performed By: #### L UPUSP ####[place] [address] [address] [place], [place] [phone] Hex Phase Delta 0.1 delta sec Normal <9.0 [facility] Comment on above: Performed By: #### L UPUSP ####[place] [address] [address] [place], [place] [phone] Hex Phase Screen 54.5 sec Normal 48.9-70.2 [facility] Comment on above: Performed By: #### L UPUSP ####[address] [place], [place] [phone] IgA Cardiolipin Ab. <9 Normal 0-11 [facility] Comment on above: Result Comment: <12 APL Ijuydgeu60-39 APL Equivocal>40 APL PositiveThe following results were obtained with an Care-n-ShareA Lite NIKI IgA III MATTIE. Cardiolipin IgA values obtained with different manufacturers' assay methods may not be used interchangeably. The magnitude of the reported IgA levels cannot be correclated to an endpoint titer. Performed By: #### L UPUSP ####[place] [address] [place], [place] [phone] IgG Cardiolipin Ab. <9 Normal 0-9 [facility] Comment on above: Result Comment: <10 GPL [id number] GPL Equivocal>40 GPL PositiveThe following results were obtained with the Inova QUANTA Lite NIKI IgG III MATTIE. Cardiolipin IgG values obtained with the different manufacturers' assay methods may not be used interchangeably. The magnitude of the reported IgG levels cannot be correlated to an endpoint titer. Performed By: #### L UPUSP ####[address] [phone] IgM Cardiolipin Ab. <9 Normal 0-11 [facility] Comment on above: Result Comment: <12 MPL Mybmmaqb36-84 MPL Equivocal>40 MPL PositiveThe following results were obtained with the Inova QUANTA Lite NIKI IgM III MATTIE. Cardiolipin IgM values obtained with different manufacturers' assay methods may not be used interchangeably. The magnitude of the reported IgM levels cannot be correlated to an endpoint titer. Performed By: #### L UPUSP ####[address] [phone] Interpretation (NOTE) Normal [facility] Comment on above: Result Comment: [facility] Pathologist: La Martinez M.D., Ph.D.Interpretation:Normal - see [...] 74:1185 (1995). Performed By: #### L UPUSP ####[facility] [place], [place] [phone] PNP Negative Normal Negative [facility] Comment on above: Performed By: #### L UPUSP ####[facility] [place], [place] [phone] PT Sec 10.7 sec Normal 8.4-13.0 [facility] Comment on above: Performed By: #### L UPUSP ####[place] [address] [place], [place] [phone] Thrombin Time 15.5 sec Normal <18.6 [facility] Comment on above: Performed By: #### L UPUSP ####[place] [address] [place], [place] [phone] PROGRESSon 04-13-2017 PROGRESS HNO ID: [id number] thor: aMeve Olsen: (none)Author Type: PhysicianType: Progress NotesFiled: 04/13/2017 [...] laboratory test PTTPAST SURGICAL HISTORYNo date: BREAST QUCONH1212/09/2016: DANDC, DIAG AND/OR THERAPEUTIC Comment: Dilation AND [...] lb 14.4 oz) LMP (LMPUnknown) BMI 27.06 kg/z4Yvgyvcn Appearance: alert and oriented, appearing in no [...] PTT- LUPUS ANTICOAG Konstantin Cardenas MD Normal [facility] Protimeon 04-13-2017 INR Coag RelTime (Bld) 1.0 {INR} Normal 0.8-1.2 [facility] Comment on above: Result Comment: The [...] By: #### P T, PTT ####[facility] [address] [place], [place] [phone] Performed By: #### L UPUSP ####[facility] [address] [place], [place] [phone] PT Sec 10.9 sec Normal 8.4-13.0 [facility] Comment on above: Performed By: #### P T, PTT ####[facility] [address] [place], [place] [phone] Vital Signs Date Time Vital Sign Value Performing Clinician Facility 11-02-2023 14:47-0500 Body mass index (BMI) [Ratio] 28.02 kg/m2 Amanda Visci DO Work Phone: [facility] 11-02-2023 14:47-0500 Body weight 76.39 kg Amanda Visci DO Work Phone: [facility] 11-02-2023 14:47-0500 Diastolic blood pressure 62 mm[Hg] Amanda Visci DO Work Phone: [facility] 11-02-2023 14:47-0500 Systolic blood pressure 118 mm[Hg] Amanda Visci DO Work Phone: [facility] 08-31-2023 12:17-0500 Diastolic blood pressure 60 mm[Hg] MD Mic Bowen Work Phone: [facility] 08-31-2023 12:17-0500 Heart rate 60 /min MD Mic Bowen Work Phone: [facility] 08-31-2023 12:17-0500 Respiratory rate 14 /min MD Mic Bowen Work Phone: [facility] 08-31-2023 12:17-0500 SaO2% (BldA) [Mass fraction] 99 % MD Mic Bowen Work Phone: [facility] 08-31-2023 12:17-0500 Systolic blood pressure 95 mm[Hg] MD Mic Bowen Work Phone: [facility] 08-31-2023 10:20-0500 Body height 165.1 cm MD Mic Bowen Work Phone: [facility] 08-31-2023 10:20-0500 Body weight 73.93 kg MD Mic Bowen Work Phone: [facility] 07-21-2023 13:00-0400 Body height 165.1 cm Imad Asaad Other [employer] Other 07-21-2023 13:00-0400 Body mass index (BMI) [Ratio] 26.62 kg/m2 Imad Asaad Other [employer] Other 07-21-2023 13:00-0400 Body weight 72.58 kg Imad Asaad Other [employer] Other 07-21-2023 13:00-0400 Diastolic blood pressure 79 mm[Hg] Imad Asaad Other [employer] Other 07-21-2023 13:00-0400 Systolic blood pressure 124 mm[Hg] Imad Asaad Other [employer] Other 05-13-2023 16:00-0400 Body height 165.1 cm Cooper Hardwick Other [employer] Other 05-13-2023 16:00-0400 Body mass index (BMI) [Ratio] 26.29 kg/m2 Cooper Hardwick Other [employer] Other 05-13-2023 16:00-0400 Body weight 71.67 kg Cooper Hardwick Other [employer] Other 05-13-2023 16:00-0400 Diastolic blood pressure 75 mm[Hg] Cooper Hardwick Other [employer] Other 05-13-2023 16:00-0400 Respiratory rate 18 /min Cooper Hardwick Other [employer] Other 05-13-2023 16:00-0400 SaO2% (BldA) [Mass fraction] 98 % Cooper Hardwick Other [employer] Other 05-13-2023 16:00-0400 Systolic blood pressure 117 mm[Hg] Cooper Hardwick Other [employer] Other 12-30-2022 15:15-0400 Body height 165.1 cm Cooper Hardwick Other [employer] Other 12-30-2022 15:15-0400 Body temperature 98.2 [degF] Cooper Hardwick Other [employer] Other 12-30-2022 15:15-0400 Diastolic blood pressure 82 mm[Hg] Cooper Hardwick Other [employer] Other 12-30-2022 15:15-0400 Respiratory rate 20 /min Cooper Hardwick Other [employer] Other 12-30-2022 15:15-0400 SaO2% (BldA) [Mass fraction] 100 % Cooper Hardwick Other [employer] Other 12-30-2022 15:15-0400 Systolic blood pressure 127 mm[Hg] Cooper Hardwick Other [employer] Other 08-18-2022 09:05-0500 Diastolic blood pressure 59 mm[Hg] MD Mic Bowen Work Phone: [facility] 08-18-2022 09:05-0500 Heart rate 53 /min MD Mic Bowen Work Phone: [facility] 08-18-2022 09:05-0500 Respiratory rate 16 /min MD Mic Bowen Work Phone: [facility] 08-18-2022 09:05-0500 SaO2% (BldA) [Mass fraction] 99 % MD Mic Bowen Work Phone: [facility] 08-18-2022 09:05-0500 Systolic blood pressure 97 mm[Hg] MD Mic Bowen Work Phone: [facility] 08-18-2022 07:34-0500 Body height 165.1 cm MD Mic Bowen Work Phone: [facility] 08-18-2022 07:34-0500 Body temperature 98.3 [degF] MD Mic Bowen Work Phone: [facility] 08-18-2022 07:34-0500 Body weight 72.12 kg MD Mic Bowen Work Phone: [facility] 05-12-2022 16:15-0400 Body height 165.1 cm Cooper Hardwick Other [employer] Other 05-12-2022 16:15-0400 Body mass index (BMI) [Ratio] 26.62 kg/m2 Cooper Hardwick Other [employer] Other 05-12-2022 16:15-0400 Body weight 72.58 kg Cooper Hardwick Other [employer] Other 08-22-2022 16:15-0400 Diastolic blood pressure 70 mm[Hg] Cooper Hardwick Other [employer] Other 05-12-2022 16:15-0400 Respiratory rate 18 /min Cooper Hardwick Other [employer] Other 05-12-2022 16:15-0400 SaO2% (BldA) [Mass fraction] 98 % Cooper Hardwikc Other [employer] Other 05-12-2022 16:15-0400 Systolic blood pressure 110 mm[Hg] Cooper Hardwick Other [employer] Other Encounters Encounter Date Encounter Type Care Provider Facility Start: 11-09-2023 End: 11-09-2023 ambulatory Imad Asaad Facility:[facility] Start: 11-09-2023 End: 11-09-2023 ambulatory MD Mic Bowen Work Phone: [facility] Work Phone: Start: 11-09-2023 End: 11-09-2023 Patient encounter procedure MD Mic Bowen Work Phone: [facility]CT Scan [facility] [place] Work Phone: Start: 11-02-2023 End: 11-03-2023 ambulatory AMANDA Martine KACI Not Available Start: 11-02-2023 End: 11-02-2023 Patient encounter status Amanda Martine Kaci DO Work Phone: [facility] Start: 11-02-2023 End: 11-02-2023 Periodic preventive med est patient 40-64yrs Amanda Martine Kaci DO Work Phone: [facility] Comment on above: Encounter for gyneco logical examination without abnormal finding; Encounter for screening mammogram for malignant neoplasm of breast; Encounter for screening for cervical cancer Start: 10-26-2023 Chart abstracting Amanda Farley Vi sci DO Work Phone: [facility] Start: 10-26-2023 End: 10-26-2023 ambulatory Imad Asaad Facility:[facility] Start: 10-26-2023 End: 10-26-2023 ambulatory MD Mic Bowen Work Phone: [facility] Work Phone: Start: 10-26-2023 End: 10-26-2023 Patient encounter procedure MD Mic Bowen Work Phone: [facility]Nuc Med [facility] [place] Work Phone: Start: 09-07-2023 End: 09-07-2023 ambulatory Imad Asaad Other [place] [employer] Other Start: 09-07-2023 Telephone encounter Imad Asaad [facility] Start: 08-31-2023 End: 08-31-2023 ambulatory Imad Asaad Facility:[facility] Start: 08-31-2023 End: 08-31-2023 Admission to same day surgery center MD Mic Bowen Work Phone: [facility]Digestive Health Work Phone: Start: 08-31-2023 End: 08-31-2023 ambulatory MD Mic Bowen Work Phone: [facility] Work Phone: Start: 08-24-2023 End: 08-24-2023 ambulatory MIC BOWEN Not Available Start: 08-10-2023 End: 08-10-2023 ambulatory Imad Asaad Facility:[facility] Start: 08-10-2023 End: 08-10-2023 ambulatory MD Mic Bowen Work Phone: [facility] Work Phone: Start: 08-10-2023 End: 08-10-2023 Patient encounter procedure MD Mic Bowen Work Phone: [facility]Ultrasound [facility] [place] Work Phone: Start: 08-06-2023 End: 08-07-2023 ambulatory MIC BOWEN Facility:[facility] Start: 07-22-2023 End: 07-22-2023 ambulatory Imad Asaad Other [employer] Other Start: 07-22-2023 Telephone encounter Imad Asaad [facility] Start: 07-21-2023 End: 07-21-2023 ambulatory Imad Asaad Other [employer] Other Start: 07-21-2023 Office outpatient ne w 45 minutes Imad Asaad [facility] Start: 05-13-2023 End: 05-13-2023 ambulatory Cooper Louiepiter Other [employer] Other Start: 05-13-2023 Patient encounter procedure Cooper Hardwick [facility] Start: 05-13-2023 Periodic preventive med est patient 40-64yrs Cooper Hardwick [facility] Start: 05-05-2023 End: 05-06-2023 ambulatory MIC BOWEN Facility:[facility] Start: 04-14-2023 End: 04-15-2023 ambulatory MIC BOWEN Facility:[facility] Start: 01-12-2023 End: 01-13-2023 ambulatory MIC BOWEN Facility:[facility] Start: 12-30-2022 End: 12-30-2022 ambulatory Cooperjohn [place] Other [employer] Other Start: 12-30-2022 Office outpatient vi sit 15 minutes Cooper Ronen [facility] Start: 08-18-2022 Telephone encounter [facility] Start: 08-18-2022 End: 08-18-2022 Admission to same day surgery center MD Mic Bowen Work Phone: [facility] Start: 08-18-2022 End: 08-18-2022 ambulatory MD Mic Bowen Work Phone: [facility] Work Phone: Start: 05-12-2022 End: 05-12-2022 ambulatory Cooper Hardwick Other [place] [employer] Other Start: 05-12-2022 Patient encounter procedure Cooper Hoyosvandanaqiana [facility] Start: 05-12-2022 Periodic preventive med est patient 40-64yrs Cooper Ronen [facility] Start: 12-02-2021 End: 03-13-[address] BECKY [...] End: 04-14-2017 Ambulatory MAEVE CARDENAS [facility] Procedures Date Procedure Procedure Detail Performing [...] 11/07/2024 11:30 AM EST Office Visit [facility] [address] [place] [address] Amanda Clemons, DO [address] [place] [address] [facility] Start: 11-07-2024 End: 11-07-2024 Professional / ancillary services management 11/07/2024 11:00 AM EST Ancillary Procedure [facility] [address] [place] [address] [facility] Start: 11-02-2024 Screening for malign ant neoplasm of breast Mammogram [facility] Start: 02-16-2024 End: 02-16-2024 Patient encounter procedure 02/16/2024 11:30 AM EDT Office Visit [facility] [address] [facility] [place] [address] Mic Bowen MD [address] [facility] [place] [address] (Fax) [facility] Start: 11-02-2023 End: 11-02-2023 Patient encounter procedure 11/02/2023 2:15 PM EST Office Visit [facility] [address] [place] [phone] Amanda Clemons, DO [address] [place] [address] [facility] Start: 11-02-2023 End: 12-31-2024 DBT Breast - bilateral screening Bilateral screening mammogram with tomosynthesis Imaging Routine Encounter for screening mammogram for malignant neoplasm of breast Expected: 11/02/2023, Expires: 12/31/2024 [facility] Work Phone: Comment on above: Expected: 11/02/2023 , Expires: 12/31/2024 Start: 11-02-2023 End: 11-02-2023 Professional / ancillary services management 11/02/2023 1:30 PM EST Ancillary Procedure [facility] BREAST [address] [place] [phone] [facility] BREAST Start: 10-06-2023 Screening for malign ant neoplasm of breast Mammogram [facility] Start: 08-31-2023 [facility] Start: 05-22-2023 Influenza vaccination Influenza Vacc ine (#1) [facility] Start: 08-18-2022 [facility] Start: 2007 Screening for malign ant neoplasm of cervix [facility] Start: 1998 Screening for malign ant neoplasm of cervix Pap Smear [facility] Start: 1977 Screening for malign ant neoplasm of colon [facility] Patient Education [facility] Work Phone: Immunizations Immunization Date Immunization Notes Care Provider Fa cility 01-07-2021 Moderna SARS-CoV-2 Vaccination Amanda Visci DO Work Phone: [facility] 12-10-2020 Moderna SARS-CoV-2 Vaccination Amanda Visci DO Work Phone: [facility] 09-17-2017 tetanus toxoid, redu paris diphtheria toxoid, and acellular pertussis vaccine, adsorbed Amanda Visci DO Work Phone: [facility] 06-29-2017 seasonal influenza, intradermal, preservative free Amanda Visci DO Work Phone: [facility] 06-29-2017 influenza virus vacc ine, unspecified formulation Amanda Visci DO Work Phone: [facility] Payers Date Payer Category Payer Self-pay [id number] 2023 Unknown FRONTPATH FRONTP ATH [id number] 2023-Present [address] [place] [address] [id number] .[id number] 1977 Unknown [id number] ..840.1.162256.3.579.2.593 1977 Unknown [id number] .840.1.382941.3.579.2.593 1977 Unknown [id number] 840.1.710509.3.579.2.593 1977 Unknown [id number] 2.16.840.1.548807.3.579.2.593 1977 Unknown [id number] .16.840.1.632429.3.579.2.593 1977 Unknown [id number] ..840.1.284324.3.579.2.593 1977 Unknown [id number] .840.1.479820.3.579.2.593 1977 Unknown [id number] 2.16.840.1.101685.3.579.2.593 1977 Unknown [id number] 2.16.840.1.790872.3.579.2.593 1977 Unknown [id number] 2.16.840.1.042522.3.579.2.593 1977 Unknown [id number] 2.16.840.1.854644.3.579.2.593 1977 Unknown [id number] 2.16.840.1.040402.3.579.2.593 1977 Unknown [id number] 2.16.840.1.599885.3.579.2.593 1977 Unknown [id number] 2.16.840.1.542057.3.579.2.593 1977 Unknown [id number] 2.16.840.1.408312.3.579.2.718 1977 Unknown [id number] 2.16.840.1.162960.3.579.2.718 1977 Unknown [id number] 2.16.840.1.345413.3.579.2.718 1977 Unknown [id number] 2.16.840.1.061432.3.579.2.718 1977 Unknown [id number] 2.16.840.1.995648.3.579.2.125 9 1977 Unknown [id number] 2.16.840.1.989980.3.579.2.125 9 1977 Unknown [id number] 2.16.840.1.141664.3.579.2.125 9 1959 Self-pay [id number] 1959 Unknown [id number] Unknown [id number] 2.16.840.1.267533.3.579.2.531 Unknown [id number] 2.16.840.1.759339.3.579.2.531 Unknown [id number] 2.16.840.1.698949.3.579.2.531 Unknown [id number] 2.16.840.1.679984.3.579.2.531 Social History Date Type Detail Facility Unknown if ever smoked [employer] Other Start: 08-24-2023 End: 11-02-2023 Sex Assigned At [facility] Start: 08-18-2022 End: 08-31-2023 Tobacco smoking status NHIS Never smoked tobacco (finding) [facility] Start: 1975 Sex Assigned At Female [facility] Start: 03-26-2023 Tobacco use and exposure Smokeless tobacco non-user [facility] Start: 10-26-2023 End: 11-02-2023 Alcohol intake Lifetime non-drinker (finding) [facility] Start: 08-24-2023 End: 11-02-2023 History of Social function [facility] Within the last year , have you been afraid of your partner or ex-partner? No [facility] How often do you att end lutheran or hoahaoism services? 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 Take before meals. 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 Roldan Villar Gastritis Goiter ([facility]) Dr. Aguilar History of abnormal cervical Pap smear Hypothyroidism (acquired) ([facility]/HCC) Low serum progesterone Pap smear for cervical [...] palpable. BACK: No obvious scoliosis/kyphosis. 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 documented in this encounter [facility] 08-31-2023 Procedure note [facility] 07-21-2023 Evaluation note Encounter Date Diagnosis Assessment Notes Jun, Functional constipation (ICD-10 - K59.04) Jun, Bloating (ICD-10 - R14.0) Jun, Epigastric abdominal pain (ICD-10 - R10.13) [employer] Other 10-31-2023 History general Narrative - Reported* Type Description Date Medical History Tendonitis Medical History Thyroid conversion issue Medical History tonsil stones Medical History varicose veins Medical History CIC IBS Surgical History varicose vein stripping 023 [employer] Other 08-23-2023 Evaluation note* Encounter Date Diagnosis Assessment Notes Treatment Notes Treatment Clinical Notes Apr, Annual physical exam (ICD-10 - Z00.00) Overall, patient doing well. Continue current care. Up to date on WWE and mammogram (through her piccoloist, Dr. Pringle). She recently had comprehensive labs done through her specialist, including thyroid levels and Vit D, and agrees to drop them off for my review. Apr, Acquired hypothyroidism (ICD-10 - E03.9) Patient is following with a specialist for management. She will have labs done through her specialist. Her dose was recently reduced -- questionable whether or not her [place] has anything to do with her constipation [...] agree that is reasonable at this time. [employer] Other 04-11-2023 Evaluation note* Encounter Date Diagnosis Assessment Notes Treatment Notes Treatment Clinical Notes Dec, Acute bacterial conjunctivitis of right eye (ICD-10 - H10.31) Will treat as detailed. We did discuss s/s of ocular emergencies -- immedeiately to the nearest ER for any of those s/s. Call with questions/concerns . [employer] [facility]* Encounter Date Diagnosis Assessment Notes Treatment Notes Treatment Clinical Notes Apr, Annual physical exam (ICD-10 - Z00.00) Overall, patient doing well. Continue current care. Up to date on WWE and mammogram (through her piccoloist, Dr. Pringle). She plans to have comprehensive labs done through her specialist, including thyroid levels and Vit D. Apr, Acquired hypothyroidism (ICD-10 - E03.9) Patient is following with a specialist for management. She will have labs done through her specialist. [employer] Other Evaluation noteNo assessment information available [facility] Work Phone: Evaluation noteNo [employer] Other Evaluation note* Diagnosis Encounter for gynecological examination without abnormal finding Encounter for screening mammogram for malignant neoplasm of breast Encounter for screening for cervical cancer documented in this [facility] Author Kwame Noel [facility] August 18, 2022 8:07am Note Date/Time August 18, 2022 8:07am [facility] [address] [place] [address] Gastroenterology H&P Signed Patient: Eb De La Torre MR#: [id number] : 1975 Acct:[id number] Age/Sex: 47 / F Adm Date: 2 Loc: Room: Type: [facility] Attending Dr: Kwame Noel MD Copies [...] <Electronically signed by Kwame Noel MD> 08/18/22806 [facility] Work Phone: History and physical note Author Debi Mares [facility] August 31, 2023 11:27am Note Date/Time August 31, 2023 11:28am [facility] [address] [place], [place] [id number] Gastroenterology H&P Signed Patient: Eb De La Torre MR#: [id number] : 1975 Acct:[id number] Age/Sex: 48 / F Adm Date: 3 Loc: Room: Type: [facility] Attending Dr: Debi Mares MD Copies [...] signed by Debi Mares MD> 08/31/23 1127 [facility] Work Phone: History general Narrative - Reported* Type Description Date Medical History Tendonitis Medical History Thyroid conversion issue Medical History tonsil stones [employer] Other Hospital Discharge instructions Additional Instructions DISCHARGE [...] Follow up with PCP. - Office number [phone].[facility] Work Phone: Hospital Discharge instructions Additional Instructions [...] NOT operate machinery such as power tools, [employer], [employer], [employer] machines, etc. for 24 hours. - Avoid [...] if you have any problems. -Office number [phone]. [facility] Work Phone: Summary Purpose Family History No [...] (K59.01) Referral Organization [facility] [place] Referring Provider First Name Cooper Referring Provider Last Name Ronen Referring Provider Specialty Family Prac jillian Referred Organization [facility] Gastroenterolo gy Referred Provider Debi Mares Referred Address [address] [place] [phone] Referred Provider Specialty Gastroentero logy Referral Priority Routine General Notes Beatriz Cid 04:04:06 PM >recieved today, faxed P2P Additional Source Comments INFORMATION SOURCE (unrecogn ized section and content) DATE CREATED AUTHOR 03/17/2018 [facility] DATE CREATED AUTHOR AUTHOR'S ORGANIZ ATION 07/28/2019 [facility] DATE CREATED AUTHOR AUTHOR'S ORGANIZ ATION 03/13/2022 [facility] DATE CREATED AUTHOR AUTHOR'S ORGANIZ ATION 01/27/2023 [facility] dical Specialist DATE CREATED AUTHOR AUTHOR'S ORGANIZ ATION 08/14/2023 [facility] DATE CREATED AUTHOR AUTHOR'S ORGANIZ ATION 11/07/2023 [facility] dical Specialists EPIC DATE CREATED AUTHOR AUTHOR'S ORGANIZ ATION 11/10/2023 [facility] REASON FOR VISIT (unrecogniz ed section and content) Reason Comments Gynecologic Exam Yearly .Denies breas t, urinary, bowel, and 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 [place] [place] [id number] PCP - General Family Medicine 10/28/23 Team [...] BE BASED ON THE PRIMARY CLINICAL RECORDS. That{img}. provides no warranty or guarantee of the accuracy or completeness of information in this document.
== END 2023-11-19 10:59 | disposition home or self-care (01) ==
LOC: VC 10:58
PROVIDERS: PCP Radiology Diagnostic Radiology; Visit Provider Radiology Diagnostic Radiology
DX: I80.01 Phlebitis and thrombophlebitis of superficial vessels of right lower extremity (principal)
CPT/HCPCS: 93971; G0463

== ENCOUNTER 2024-05-24 10:55 | Outpatient (OUT) | payer OTHER, SELFPAY ==
--- NOTE | 2024-05-24 10:58 | VEIN_ITS ---
Patient Name: EB MÉNDEZ MR#: [id number] : 1975 Exam Date: 05/24/2024 Ordering Doctor: DR BECKY TORRES M.D. RADIOLOGY REPORT PROCEDURE: [facility] EST [facility] - OFFICE VISIT FOLLOW UP [facility] PROGRESS NOTES: The patient reports bilateral leg heaviness monthly during times of menstruation. Physical exam demonstrates no significant varicosities of the legs. Review of the ultrasound performed the same day demonstrates occlusive thrombus extending throughout the previously treated vein(s). No new veins in need of treatment at this time. VEIN/[facility] EST TD IMPRESSION: 1. No new/enlarged varicose veins in need of treatment at this time. PLAN: Follow up in future as needed. Nurse notes, history and physical were reviewed and confirmed, see attached forms. The nurse was present throughout the physical exam and consultation Dictated by: Kyle Dick M.D. on 05/24/2024 at 11:42 Approved by: Kyle Dick M.D. on 05/24/2024 at 12:09
--- NOTE | 2024-05-24 10:58 | VEIN_ITS ---
Patient Name: EB MÉNDEZ MR#: [id number] : 1975 Exam Date: 05/24/2024 Ordering Doctor: DR BECKY TORRES M.D. RADIOLOGY REPORT PROCEDURE: [facility] COMPARISON: [facility], 10/06/2023. INDICATIONS: Phlebitis of superficial vein of bilat lower legs I80.03 TECHNIQUE: Lower extremity phelps scale and Duplex Doppler evaluation of the deep venous system from the inguinal ligament through the calf veins. FINDINGS: REGION: Right lower extremity. THROMBI: None. No patent varicose visualized. COMPRESSIBILITY: Normal compressibility. FLOW: Normal waveform and antegrade flow between 5 and 20 cm/s. OTHER: Multiple noncompressible previously treated varicose veins. REGION: Left lower extremity. THROMBI: None. No patent varicose veins visualized. COMPRESSIBILITY: Normal compressibility. FLOW: Normal waveform and antegrade flow between 5 and 20 cm/s. OTHER: Multiple noncompressible previously treated varicose veins. CONCLUSION: 1. No deep vein thrombus within the right or left lower extremity. 2. No abnormally dilated or incompetent varicose veins in need of treatment at this time. Dictated by: Kyle Dick M.D. on 05/24/2024 at 12:40 Approved by: Kyle Dick M.D. on 05/24/2024 at 12:43
--- OUTSIDE RECORDS SUMMARY | 2024-05-24 11:08 | XMS_ITS | CCD ---
Author Organization [facility] [place] [facility] Team Providers Care Dental Laboratory Technician Apprentice Name Role Phone MAEVE CARDENAS Unavailable BHAVIK Benites Unavailable Unavailable BRIAN, DR BECKY Adams Admitting [...] Muhammad Consulting Unavailable WEST, DR BECKY Adams Admelieser Unavailable WEST, DR BECKY Adams Attending Unavailable WEST, DR BECKY Adams Consulting Unavailable WEST, DR BECKY Adams Admitting Unavailable WEST, DR BECKY Adams Consulting Unavailable WEST, DR BECKY Adams Attending Unavailable ZIEBER, DR HANNAH Muhammad Consulting Unavailable WEST, DR BECKY Adams Admelieser [...] Unavailable WEST, DR BECKY Adams Admitting Unavailable Cooper Hardwick Unavailable MD Kwame Noel Attending Provider MD Mic Bowen Primary Care Provider Kwame Noel Unavailable Asaad, Imad Unavailable MD Mic Bowen Primary Care Provider MD Suzan Imsanthosh Attending Provider Cooper Hardwick MD Primary Care Provider Cooper Hardwick MD Primary Care Provider [phone] MD Mic Bowen Primary Care Provider MD Suzan Imsanthosh Attending Provider Asaad, Imad Admitting Unavailable Hemeyer, Edward J Primary Care Unavailable Asaad, Imad Attending Unavailable Asaad, Imad Attending Unavailable Hemeyer, Edward J Primary Care Unavailable Asaad, Imad Admitting Unavailable Asaad, Imad Attending Unavailable Hemeyer, Edward J Primary Care Unavailable Asaad, Imad Admitting Unavailable Asaad, Imad Attending Unavailable Hemeyer, Edward J Primary Care Unavailable Asaad, Imad Admitting Unavailable VISCI, AMANDA A Referring Unavailable VISCI, AMANDA A Attending Unavailable HEMEYER, EDWARD J Attending Unavailable HEMEYER, EDWARD J Attending Unavailable HEMEYER, EDWARD J Attending Unavailable HEMEYER, EDWARD J Attending Unavailable HEMEYER, EDWARD J Attending Unavailable HEMEYER, EDWARD J. Attending Unavailable HEMEYER, EDWARD J. Primary Care Unavailable HEMEYER, EDWARD J. Admitting Unavailable HEMEYER, EDWARD J. Attending Unavailable HEMEYER, EDWARD J. Admitting Unavailable HEMEYER, EDWARD J. Primary Care Unavailable HEMEYER, EDWARD J. Admitting Unavailable HEMEYER, EDWARD J. Primary Care Unavailable HEMEYER, EDWARD J. Attending Unavailable HEMEYER, EDWARD J. Admitting Unavailable HEMEYER, EDWARD J. Primary Care Unavailable HEMEYER, EDWARD J. Attending Unavailable DARLIN Doan Admitting Unavailable DARLIN Doan Attending Unavailable HEMEYER, EDHERBERT J. Primary Care Unavailable HEMEYER, EDWARD J. Attending Unavailable HEMEYER, EDWARD J. Primary Care Unavailable HEMEYER, EDWARD J. Admitting Unavailable Allergies Allergy Classification Reported Allergen(s) Allergy Type Date of Onset Reaction(s) Facility (3 sources) Escitalopram Drug Allergy 3 [facility] (3 sources) Latex Propensity to adverse reactions 7 [facility] (1 source) Gluten; Translations: [Glutens] Propensity to adverse reactions to food (disorder) [facility] (1 source) No Known Medication Allergies; Translations: [No Known Medication Allergies] Propensity to adverse reactions to drug (disorder) [facility] Medications Current Medications Medication Drug Class(es) Dates Sig (Normalized) Sig (Original) cholecalciferol 0.125 mg oral tablet (12 sources) Vitamin D Start: 08-18-2022 take 1 tablet by mouth once daily Cholecalciferol (Vitamin D3) (Vitamin D3) 125 mcg (5,000 unit) Tablet Active 08043 UNIT PO Daily August 18, 2022 12:00am take 2 capsules by [facility] every twenty-four hours Vitamin D3 1.25 MG (14896 UT) 2 capsules Orally Daily Active ciprofloxacin [...] capsule Start: 09-07-2023 take 1 capsule by [facility] every twenty-four hours NexIUM 40 MG 1 [...] Daily August 31, 2023 12:00am Thyroid (Pork) ([place] Thyroid) 60 mg Tablet (3 sources) Start: 8 take 1 tablet by mouth twice daily Thyroid (Pork) ([place] Thyroid) 60 mg Tablet Active 60 MG PO Twice daily November 16, 2017 12:00am thyroid (alf) 60 mg oral tablet (12 sources) Start: 8 End: 4 take 1 tablet by mouth in the morning thyroid ([place] Thyroid) 60 MG tablet Indications: Sick-euthyroid syndrome [...] by mouth every six hours Hydrocodone-Acetami nophen ([place]) 5-325 mg tablet Discontinued 1 - 2 [...] tablet in the morning. 28 tablet 09/06/2023 11/02/2023 Discontinued (Therapy completed) Start: 09-06-2023 End: 09-05-2024 Levonorgestrel-Ethinyl Estra d (Tyblume) 0.1-20 MG-MCG chewable tablet Indications: Encounter for surveillance of contraceptive pills Chew 1 tablet in the morning. 28 tablet 09/06/2023 09/05/2024 Active Multivit 24-Jbmp-Tnrmkq 1-Dha (Pnv-Dha) 27 mg iron-1 mg -300 mg Capsule (5 sources) Start: 11-16-2017 End: 08-18-2022 take 1 capsule by mouth once daily Multivit 50-Rskz-Owbawj 1-Dha (Pnv-Dha) 27 mg iron-1 mg -300 [...] Test Name Value Interpretation Reference Range Facility Coding Summaryon 04-06-2024 Coding Summary HTMLBase 64 TjkrzjchHBa6wBw+PGhlYWQ+P B0NVJKfK01qpURetR0eD5DWEM lOSywgQVBQTElOSyIgbmFtZT1 kaXNjZXJu IC8+JC8qXPLeIiemfVFqn2R9k ZO0R43ysi8iPPxjsQS6IJXyJk Lgdfzvv3ucvIg7CLgkBjgrUvE t WBAdbS35YEO1vM50Uq64ySIps OBbh0wjdCd4ZjJhUURiOOJ1sD xzGYuns7BuOQPxB69auAYdv8M 6 XBQduStxxKMoHiMqpVM6fH5iQ Foquugmf5kjoqpmMag4yw98vH Ewh3W2cFZ6A7XctsE0FVMwzXA g VojzeKMFuW7ohxzga9ivpvkrM vMtFRHwCAc0YNu9HBKqwFbaWc TsZK67LKN0NNIenjThL7MlSHE s wKpwGvW1b5L8If2RI4YEGuddG 1VNTUFSWTwvdGQ+NO20yw16K2 GeZhaqCql6HIBhUSX3tRZ9tB4 n RHMpDHucj0N8pXG6I7MhmrLqq q9nn9ldWXVsAVngJ54ddMEhm9 D4DLExyWV3KZEcjRnqLuMroE5 3 Oyc+YRFbuOsgr9LyNsran6hom 9xpbMg1ZnwcMWPqynUfeVnbGF J0w6YfZz9dMNQvrQK7cAG6uM5 i LjHkVhW8MSpbK776MtVwzSXjV echI00bN0FyjYG+TVXzOyj2WS ZbqZckVZ6wA8LqTVPgqpehlKY m rKthQL5fKTTrqtzoIGMjfZ9cJ RGtE6t1OzRuYkJ7LUprA7WyYF TesgsyEb63yJ7uChMuAjF3FPq u R2FaghI7SWZwcJOsTAblJLN6N 16xc7C9JQGeNOPiDKS5lJK3gZ 1hbGlnbjogbGVmdDsgdmVydGl j MTsbPFqeR321ZALgoBbjNmKcV GluZyBEYXRlOiAgMDcvMTcvMj AyNDwvdGQ+FSItHYA8gCjqLII n lDTqTFmeSf3ixHhxqBdhRI8dD WBjkcibYYHwrA2yACBrmKGxbN icMI4iQQWwxbkqm402ZbFqAWD 0 GJHilIEdT7NqdZ3oQnUnSSBhQ HOdM6VmzNQvMCokO443RYjxOm M5RNGllpMjF5MnEKUkiOfjCiG 0 t9X7Kl6Eh2MhojqdA8FmyVOzU wGaGtoeOLh8S1LvFujnnTS+PC 96BAXhYG79YWz9JCC8pVdfAYa i WHQuH9NppC2gYmJmERMkHMKuU yc+PHRhYmxlIHdpZHRoPScxMD VgYvTskSoiXF5yUx3hAEEzNSH v bVnciEYpKaRuw9kyXPVtXSobH F3rlWlyG3AhwFY3WJFaz7t7Mr 58S19nD3ZpcBI+GFTyvMC0xGB 0 xQ2lTsHxRzC4EYssA464QkBga WRtEiwxg7swu0msnVb7UcK9AL WjfxNazVdiPDF5m2UiPt07H39 s IHdpZHRoPSIxNSUiIHZhbGlnb b4bvU6pVx2+STLgdIP9fOV8mL 8nPeMmYzE5TCawE820HnXmaFL v Gxzpk7occ5gezCj1BdZqQYStq oGwjEtgUEA2d0ScXk81D7MyxR ziq4VbViz9ix20fJRvd0N5kYU 9 S4NpFRRygorxmMNxdOzpXO0tT MTyvojfEQYhnH4uBVOvB2j6Cm TvRqO9ZQedC5NsvmB1DNVreTR g VZVlbORRbB1tsvnhu9zimgruC tHhEOSzISv8GKq3PQHlpZivWd PbVGG2UiC9XYW7iOXktL1fpOn n pnyhyB6bFdh+GCS1hPBewWJHV X8aCvbjiUB+WLTzKNR7lJphYD ziCCUgmN2sAGUkB7h8NzBoQtV 1 NLvrV0HhcoL9VGByiLQmVWJfe LISqC9reyaqp6wxnpdpIcCfCQ NlPRi5GWv4INCpaRomIcKbHKV 0 GlY4JYR3fKWorX7doFjhbnczn G9wOyc+VpzaiWisFBT2FOv5X3 TvHth5ZFDnhRqsEF3gyHOtWDf u Ye9seOjzpSiqVC6gITIunjxke 229RyIdh8wkRDXarFChRPzrBU H0C60ln8W6YTZbMNOtWBV6aHG 4 qY4fjMbhejvfaVUhsHnstsIqv LrxFSlwXZdgM038PYGmnBqaKu OwZRg6D7UgHuh4TXHxaEdfYK9 n pIOsLKmsWq8ziMmjfHktMQ0hV RJfmlmwl621ZkIim1gdGKPxsG OpOSymONC5Q33fx2Y2JFAhWGY w RMM2cLX3eM3vxUpqoveckAYzg EtqioShnEvoACktFEkqL770UA AbgFotKpLulRs2F3EyCym3CAD z oDicHH1ivSOgQPqiCt5wqUjsi QhyJC7qPAAxvdava972CuZlt3 xrJBNkbODoCIroAWP0H11cg6D 6 DQFnYPMnDKC6aGB3oJ7cpChwg jogbGVmdDsgdmVydGljYWwtYW tsH929MTCgfUufQbSigQxrdlR g GHccRMf5L4BdZhyydPU+PC90Y XAjTL70bDFslNRft3wpmVk2Sv HhZZFfBAK6dQqvMSaiy4KlTBS t H94nhFCwo2K7PMQuvSwfsDPjR xTvjWV0mL8sUJtwfovja5asfd ofDhate8bnxj50kR65I17nDLn p ERAfKOAqORUtISLuqGbdgh1us G9wIi8+JUDyuHQ3bXL4oV9zXQ CwYcO7FDmuF912RvLrzITwLqu j w7eqs7jvoBu7XnN4IVCautXgv JisKEZ5q0ZmMn53D12oDHtwBN HyUWLdVAWvBIZmrBnfgc0bvV3 w Ii8+OCXlyCS4jFU6jR2jVlQqD iO7KYbjZ143UtGezHGlAwwyU0 6cU3CrvES+TZKhPag6JMZovGp s JH7poWKqHDppSa6lJYH2GoQbT mMqWBpjK8FbYQVraintxpdrhC T2DGTmLFJflU75Xo7bkHlpDMO w xPQNwT2mgojqj9cwwnahLpTlV ZMtHWm0EAf7AQFbxBzvXkJsET D1LqN3SAK2lPCzeW0hyLgwdbf g nY9mZ9RoXTQipyznIw65rZ2aL aVcRbO4CGhfHim+FpTTPj7fEr PGIANdUVhOZ6kUJnEKFH85CC3 8 hTQdc9R8rYF7T3WsWGHexozqv hlclMH2LYRuKKOphK16nJUrXA xwCz8pr3J0q078YODpWOOzwB6 7 Rc1efWyjZTIjuRDDuC0qttnjn 8cjugfmPxTdMIBgHDu7RQh3VB DrePhiLuXwPPR0ZzN0MDG8hIJ h oF3pwKoftfjukV5zJme+MTAvM WZmDKm8SdaljJE+WKMwFKI8wS kiXQzdATCwpX4kHKDsS9y5KkB w ZsZ9WMcnA6FfYWRpknipEp25w N9bZzJuTjC2MQqyW4SpnhL6TI ZziTGfZRyxQHE7Y00op7E9IPF w WAIbCYV2yNE8bX5paAmifvbpq GVmdDsgdmVydGljYWwtYWxpZ2 17CFPciOueRaD0HAdfAPXwHV8 0 QQ06fSXuc6U0sCC6D9GuEDUad lqnjudliDL4CFKkUAHrnG05jZ RzCCqtTo2no9A4s181WAAnQYX w qN37Hu3syFijMDIbbRSGoT8bz pqbc0jvfithCzXgXWBsOKx2XO e9IIWbtCobXyLgNQK4AnF1EGS 0 xQQhgT5qzFvgtkwfzZ8yUun+R mCTQXiUDL67WG33gUJcm0R0sT M5J7TtPSTxxjwbahwhsZF7AWM u DXJtaD05fONmBFtoNx9uu2B7p 319BWEyHVHghH64Gj5whLfmHS SbyYYOeE0osuphu4nenjezZjP w XWIdVRa6YSl3VIAjpPavRsQnG FL2FwW4GEL8oTMekG8foXqqak fflU9cHfl+A6N3I7PdTixneXO + NH25MFExMZ17kFHjqFXir1dgx Qf7KpDoFFXkKCU7lGfxAHinu1 ZmFPHeN97zaGUnt1C0LAWgaDz h jTIfPaWahRB3rA3mAAshzqzfu 2ntkqkxRgbyc5nzsd25bW20O5 9sIHdpZHRoPSIzMCUiIHZhbGl n dv1exC9eNc4+PVVxxSO8hYG4q Y4mBuAiRhP7EUvxG981GtCxoB CnHaccs0rdj8wcvQf2XgLxCJK g elZypYltYEB4p0DxYe40Y21dG HdpZHRoPSIyMCUiIHZhbGlnbj 7xwR3vPc7+RY3dn6gcbu47lV7 8 dHI+DHXzGMM0yNueQKxiIBYjt M8hMFadIuU6SEIjTgQeyK22wJ CdMBzsYn7vlZivqSqgAA1kWQN p ruwbt554KdBba9ohIPOmdGAcX FuuVSG7R20yi7E0UZQxQUJlHK F9oAJ4tN2szRfdlsqpxCLokVs g taTuuSdyKHpnPLpzR811ZLUci ZohRaFscWNlT1rzoaQSHB6sNs wvdGQ+HKXuANF7qWhcSAnlXUE k qG4pPNLoN3v1KoWpGvD0KVasM 3ChhjP1DFSllTGcVSJwqMGNrO 1flhuer5nlfxeeBsHvNLBhRAw 0 BOn8ZHSsfDduNtQlMRS8VvJ2H GB9bPQffA5qpIhxckauvO9xRa c+RklOOjwvdGQ+BMJoUGA1zTd l SKqnJSPreF1sSQXoJ3i3GsEuE pQ7JCadA2WljaG3ZSBxzWPwCK LdgCOEyS1kcgrep7cnmryeAhR w MSNaCHs8KMc6OBUzqXexKuYsZ AC9RxP6CAL5tUPypC1ztNpwio cbrA2aUuu+TVJOOjwvdGQ+PHR k ELN9xFpePKdnOEMuvI6mZTPkF 7h1ZjMiPaU6MEuhB9CoxfN7GP DufKVeWSQabHIZqY8ikfhlw3c v iqorKlIiGYLtTBm9KDq1RCXxd AdhPgNbYLP0ZuO3ZJH7mFChtO 1jdBxuuatwtR7hUwa+IOR2UFX 6 LR87TU44O9NjRlqlhGNctCF+P HRhYmxlIHdpZHRoPScxMDAlJy FrmXljVZ6iGm5lHTBuLTNhoLr h cHN (more content not included)... Normal [facility] 03-24-2024 eGFR Non AA >60 Invalid Interpretation Code [facility] Comment on above: Performed By: #### 1 [id number], [id number] ####[facility] (DEFAULT)[address] [place] [address] 91099 eGFR AA >60 Invalid Interpretation Code [facility] Comment on above: Performed By: #### 1 [id number], [id number] ####[facility] (DEFAULT)[address] [place] [address] 31617 Albumin [Mass/Vol] 3.7 g/dL Normal 3.5-5.0 [facility] Comment on above: Performed By: #### 1 [id number], [id number] ####[facility] (DEFAULT)[address] [place] [address] 54569 Albumin/Globulin [Mass ratio] 1.3 {ratio} Low 1.4-2.6 [facility] Comment on above: Performed By: #### 1 [id number], [id number] ####[facility] (DEFAULT)[address] [place] [address] 99439 Alk Phos 39 IU/L Normal 32-91 [facility] Comment on above: Performed By: #### 1 [id number], [id number] ####[facility] (DEFAULT)[address] [place] [address] 38827 ALT [Catalytic activity/Vol] 16.0 U/L Normal 14.0-54.0 [facility] Comment on above: Performed By: #### 1 [id number], [id number] ####[facility] (DEFAULT)[address] [place] [address] 16906 Anion gap [Moles/Vol] 10.7 mmol/L Normal 5.0-19.0 [facility] Comment on above: Performed By: #### 1 [id number], [id number] ####[facility] (DEFAULT)[address] [place] [address] 07019 AST [Catalytic activity/Vol] 21 U/L Normal 15-41 [facility] Comment on above: Performed By: #### 1 [id number], [id number] ####[facility] (DEFAULT)[address] [place] [address] 04873 Bili Total 0.6 mg/dL Normal 0.3-1.2 [facility] Comment on above: Performed By: #### 1 [id number], [id number] ####[facility] (DEFAULT)[address] [place] [address] 72846 Calcium [Mass/Vol] 8.9 mg/dL Normal 8.9-10.3 [facility] Comment on above: Performed By: #### 1 [id number], [id number] ####[facility] (DEFAULT)[address] [place] [address] 83384 Chloride [Moles/Vol] 106 mmol/L Normal 101-111 [facility] Comment on above: Performed By: #### 1 [id number], [id number] ####[facility] (DEFAULT)[address] [place] [address] 64417 CO2 [Moles/Vol] 25 mmol/L Normal 21-32 [facility] Comment on above: Performed By: #### 1 [id number], [id number] ####[facility] (DEFAULT)[address] [place] [address] 78881 Creatinine [Mass/Vol] 0.69 mg/dL Normal 0.60-1.30 [facility] Comment on above: Performed By: #### 1 [id number], [id number] ####[facility] (DEFAULT)[address] [place] [address] 75649 Globulin (S) [Mass/Vol] 2.8 g/dL Normal 1.5-4.3 [facility] Comment on above: Performed By: #### 1 [id number], [id number] ####[facility] (DEFAULT)[address] [place] [address] 10257 Glucose [Mass/Vol] 98.0 mg/dL Normal 74.0-118.0 [facility] Comment on above: Performed By: #### 1 [id number], [id number] ####[facility] (DEFAULT)[address] [place] [address] 44062 Osmolality 275 mOsm/L Invalid Interpretation Code [facility] Comment on above: Performed By: #### 1 [id number], [id number] ####[facility] (DEFAULT)[address] [place] [address] 21693 Potassium [Moles/Vol] 4.7 mmol/L Normal 3.6-5.1 [facility] Comment on above: Performed By: #### 1 [id number], [id number] ####[facility] (DEFAULT)[address] [place] [address] 11101 Protein [Mass/Vol] 6.5 g/dL Normal 6.5-8.1 [facility] Comment on above: Performed By: #### 1 [id number], [id number] ####[facility] (DEFAULT)[address] [place] [address] 05252 Sodium [Moles/Vol] 137.0 mmol/L Normal 136.0-144.0 [facility] Comment on above: Performed By: #### 1 [id number], [id number] ####[facility] (DEFAULT)[address] [place] [address] 34039 Urea nitrogen [Mass/Vol] 15 mg/dL Normal 8-26 [facility] Comment on above: Performed By: #### 1 [id number], [id number] ####[facility] (DEFAULT)[address] [place] [address] 51873 Urea nitrogen/Creatinine [Mass ratio] 21.7 mg/mg High 4.6-16.2 [facility] Comment on above: Performed By: #### 1 [id number], [id number] ####[facility] (DEFAULT)[address] [place] [address] 73474 Lipid Panel Standardon 03-24 Cholesterol [Mass/Vol] 148.0 mg/dL Normal 66.0-200.0 [facility] Comment on above: Performed By: #### 1 [id number], [id number] ####[facility] (DEFAULT)[address] [place] [address] 23340 Cholesterol in HDL [Mass/Vol] 51 mg/dL Normal 40-71 [facility] Comment on above: Performed By: #### 1 [id number], [id number] ####[facility] (DEFAULT)[address] [place] [address] 83971 Cholesterol in LDL [Mass/Vol] 78 mg/dL Normal 1-100 [facility] Comment on above: Performed By: #### 1 [id number], [id number] ####[facility] (DEFAULT)[address] [place] [address] 79872 Cholesterol.total/C holesterol in HDL [Mass ratio] 2.9 {ratio} Normal 0.0-4.5 [facility] Comment on above: Performed By: #### 1 [id number], [id number] ####[facility] (DEFAULT)[address] [place] [address] Triglyceride [Mass/Vol] 96.0 mg/dL Normal 0.0-150.0 [facility] Comment on above: Performed By: #### 1 [id number], [id number] ####[facility] (DEFAULT)[address] [place] [address] 90071 VLDL. 19 mg/dL Normal 5-40 [facility] Comment on above: Performed By: #### 1 [id number], [id number] ####[facility] (DEFAULT)[address] [place] [address] 18104 Provider Orderson 03-24-2024 Provider Orders [id number] IFF Normal [facility] Coding Summaryon 02-01-2024 Coding Summary HTMLBase 64 QjxffknfITu9iKj+PGhlYWQ+P K5EUXTbR51lvIUhkP7uT6VXLT lOSywgQVBQTElOSyIgbmFtZT1 kaXNjZXJu IC8+HX8tGOJbWngbgFYxy6E2r LJ8O14umn1qPFhknXW4EPKgEy Vxkaopy9xktHq4UCczXjpyXnA t OCHkwV33UOX6zK06Nu64aKBha IJlm0qsgFf9EwKoSIHeVEP8lQ vwCUjgf6WlXCLvD44wjDNaw9H 6 RSXnfLgafSUdQeTdqEM1sD6iY Yohskjig1epizefDvp3ht20nH Ijk7K6xVG4U9MkejF9CIOhsBT g JyaqeANHyW3swpweo5auogdjW rBkACLqAGu8FLb6KACltRtgRp EyMX20VXG1AXPcquVzO0DpPRB s tTlrJqS0k1B3Ls2CL6EJKjqgG 1VNTUFSWTwvdGQ+UR82tc12T2 FjTxsqIcc4ESCnDQU8wSA2eE3 n ILJgPYmav9Y4iMT8P0VnsyXzj j6sb7drKRUfHQjvW10nfWGbr4 I2OCMmgTP4AQOoxWcjYjDtuN2 3 Oyc+DKBjjYivs5QrYhgna6abx 8cksQr4XgyoCTOzuuSxrGetGB I8z3PkBz2gSKXqvLD3rCR1mI6 i QzRfPvN7JEblQ817GjHnrQXcD xijL25hM7TgsFP+WGYhAoo0BH MkyIlxKN7wB0YxJBMvapqmkTL m jMtiBN9wEZRifybfNOYkmZ6aN SVpN5k7WtIeCoI0GGhlN8KzWP SzcfclVz41qC1aSfIkUbU2UPb u I2OximV5DHRheGZrPZklFFJ5G 12bd3S4NXYzHQSxUGJ7lFD4gB 1hbGlnbjogbGVmdDsgdmVydGl j LVvhSDmwG635MYSbyTpaWsJkJ GluZyBEYXRlOiAgMDUvMTMvMj AyNDwvdGQ+XEVtUEE4yTvyILO n gOHeGBkbHj7mjRgyyOumAU2lB LAgxpryZLRtyJ7oPDXirBVgqQ zwFT2sIMEmtmmtb303XjVjPGG 0 LNUkwPMyF5MfgR4jEjPoOLZtT RUeV8OmlNCsJZgjG641PBkjUq Y7XYMvgwGhF4MhDTOczKjwGlL 0 v3L0De7Ht8DbaclkT5SzgAAqX cZaHlsqOHw7N2MgMcpyrUT+PC 83TUWxAT37TRm5NVY7mDjuANj i PRAqD0JdaQ7uQzXaZPSxHGQwO yc+PHRhYmxlIHdpZHRoPScxMD XsNmOyzWoaTE2zOu9gSWPcYOL v yEnyjOJkKhJll7wtZBMdABzlF J9foCxjJ1ZyvKR9LYLpn1g9Kg 08I07hV9BesKN+IGEepZM1bBX 0 lJ8tZlQnHkT5EMcpO059LmLxs YUpFhkby4dij7vyoUi4OpD3EX YyjsFgzVynRCH1t2AbQv44F44 s IHdpZHRoPSIxNSUiIHZhbGlnb k2hcH0uGg7+RVHmpEB5vDP1dT 7lKaUhFjK7DQexX202GzLqiHC v Qepjm0jhr6uhxEp5SqQhQKSqr uZseFpgFKD8j0BhSl01N9QnaF lvu6TyRtc6xa00iFHhk2S3pTI 9 K2JmEDSpxyqczRZmaMemBT4iY GKlgmjvRCSegQ9bCPXwP6z0Wy VpBvX2MUoxO9UfowY2QOJktMK g CQIgcGREmD7aetaou8wrzbyzH eSnRLOfVWw9DNz1EIQudRzqPv OiBDO8UdT1FTE6fRJhxS5xoDz n kalgkF6dCoh+PAT8uIMwwYXFS J1aZtlzrCM+KJEoYBJ1eDbiPJ teXCJrxJ2tYSRcU7b7RjQoXdA 1 ZLblR7RtgoU5OZFirLZdYFTnz JIDlT5tqjrwg5twdmheBtOnKH VwVPf4JLl8KVLobQwwMdScPNW 0 AnK6EKR4iBIduI0rtVlprmony G9wOyc+HkwkvPktRVD8RHq2B9 FkKgh3CQZxjHohDB6naQKxPIo u Ly0blSpuyDlqWN3kUWZmfzzpo 171NmLih1ejPCPayOWpTSziFP O5P20xc8V7YCRgQXPrOJT0zLH 4 nM3apGlstpfzbPFkxQepyjEqu ExkEShsZKydO458WNJonZhaAp VrQFo0D1PpAxh4KDKhrJyfAJ6 n kJWnXRiyMj7giJuduGrwVD2tN OGxdobko944HlXkt1axJMSxcQ XyHLdsOPH7V79bv0X4LZQrMGS w KBK2mCF8eO9pySgwlkjyfFBtw DtkqaPpbFayEWhrHDycA149HO AvjXufRnYhyUg7E1BnKat2RMY z bOctBP5jyXUdFWfzNy1duByic HxbLT8oKPBazfexp028RbHph7 zyBVJklUKrPGhtHZG9Q47tf8R 6 URVkZCNlGCT4kNA7fR7rlRxhl jogbGVmdDsgdmVydGljYWwtYW ssD815BHDfnPbnCjSqoVreubI g OGszBTr0R8XgImoxwLJ+PC90Y JUdON99zHTxdFAgy2zdvBu1Vv AxEAEvYBK1cKhbLMfhd1HnSRU t C22pkTUju1V0BXXvxKiexFRuJ mNlnOF6cV5kMIsabwrkd7tbww uvQdcxb0zqoz79sK95W67vXXm p QSXzAMFfMHYxKSSekOiuac1fz G9wIi8+XJDppYD1cTM0wD6mGH AqZeQ0ISbyF271VzGzwCDvNvp j q3ujt5jgfWt3SmL3TVEpbqKox MpsWAL4c6RcTa58Z78hASfzIT MnSHCvSHMsYTPszZhxbp2pmA5 w Ii8+LNActDL1vGS5xI0cJmIxH bM2KDziL178RgUmvIYkYotzP8 4hR9RauPI+PWBhLia3PBUfwUh s XX5fpLDiGBpbVa2mDDK9HxHvD rJzMUcbI8CsEXAdwqfigktboU T6CCImBGOxlE43Cl2vdHwxWMJ w oSQFsD0qwnoik3pnaaufEuZoH TKjJDs9JVs8XQAcmAgvIjQmIF P5StA0EGP5xAFwfE7tiExwpyw g uT2tN4DyWKDjmtnqZe59bK8mL cVkOgM7CKvjHcb+QhNYGa7sNn KDZPBxWTgNR0kEGdVNSU59AC0 8 mFPam1T0lSY6K0TsRXYflcbkm gbvrTW5HZQaOUGxyK88bQJaFO abJp8oo2U5l731ZEYiXGPtgJ3 7 Mb9mrKubXBFzfWTYmP1dpknui 0gggqccXwWaYPPoIEp8RIk4YD XbvBvyLzNxABK2NsQ2HEZ9rQD h fC3ytAxtojvavC3fEfn+MTAvM JPeUYh4AghslSQ+ZPFhLLN4sI zeWPgsLACnxE9gZRSyZ1x7FsQ w AqT0WKwnU6PwNYGjwesgLu00z L3pYpMwMdD7IJcgB6CjtsJ0VA OybXPkDBueJAC4I14ls8K1PVX w EEPjCMR0zPJ3aV8mzIvhgtfvl GVmdDsgdmVydGljYWwtYWxpZ2 04BRAouWxvRnC0AAhgJJXhGD9 0 RC74wWGja8D3oKW4T8ScSMGfp qsytyxqkOA6GMDfNCYtjK97vG FpBHocOp3dn3R2d255TINnZNX w dC95Tc2qvLghGLJpqDBAgV2kf esep1ffvuqlVrWpTWAsLVb2XS e1QOWdrEhxMzRwLAI5WyW4KEB 0 oFLmzQ1bpMswxdteyC2yFxe+R cEGOWsMQC83JK24vNHpw8J8gK B8F6HfKGXjekevsozqfWL2JZA u HCQytQ74rBIlGJrfNc6uf7B7o 164ATDbDAAlzP13Ka1xdNqoZQ LswYBIyI3bjachl2hiwoetUnP w RYUvUEp7VWo6VTFrhQumSyRoS KO8FfA5BFM2lEEelE1kdAiprn quwE3eYds+L4K2O0FyPafcyFO + HJ06DWGoCK73rXAxuPYwm9tis Cg7WiCpESXuMJF7eEnhEUxjj9 UaJYIhT54xnQOol4P0ICXlxRi h jXHzCuPamHT4zV8dXJtexisih 9ybhxnjCtyet0dmus28xZ85N1 9sIHdpZHRoPSIzMCUiIHZhbGl n bt9dlW3gHk3+WSWsmKX8uBB2e N5hBxRhQcI5IIdaU695QrIpkW UiWtvhz1hre9siiOm3LoGkPDM g fhWsxDitKQF8g2CpOi04C93uK HdpZHRoPSIyMCUiIHZhbGlnbj 2abE8qYz8+TB1ks6pvhc08lH3 8 dHI+YTSaATG7kCuuUIwhWNFcy D0zCHfiOoD8QQBfQrNciW90aO WzRZxtHx1zcKrwgEuyOZ8uIAS p jmdti190YxEpf6htNXHaiFIzA LmoNJR0M48ao0J0CCDkBJPfWB B9oSH2zE0uoPtcfnaovIFzcRj g xbIizQfhLXhkDRctF990URKoq BahIqDxzRFlT1agbcNZKN0nWh wvdGQ+DKNuMAO1tHamLDfbOQG k jQ7qHKVbP6q5XkYzGlC5VCizV 8TkdgC3MEOfhWAdHKEjiEZDyQ 5tchtpa7rwfdtcMhVbUQIsAOy 0 SGy6TQEijGquDkLxLFH6HlT6O JW5eWMgyB4egHioajoqwU3fUa c+RklOOjwvdGQ+DHPtWVN2yVn l BBtzTGGtuM0pPUXdZ2x8SjMoP zW3QPgtS7EgakR9KDYenZDrMA LpnRPTjP1kzptif0rhnhryVqD w DKSrDKm9SQa6HVCquXzaIxZbJ EC6HlN0XEW3ySIrpT9oaZtncu idmS9eJnd+TVJOOjwvdGQ+PHR k TXN5dIjiGEzuYLYifI4cTCVmS 9q1UrGfVhX9SKadQ0GuidT7HG TabWVnIHGyoUFApB3drkagu1y v wciaOiYtXBTjYCp5VKl7PITux QfeDsZdFFP7HfH7FVN4dRKpcV 0twQlqroaugQ5rMyk+KKC5QRF 6 MZ40BF80M7WfLmxgbOApmQD+P HRhYmxlIHdpZHRoPScxMDAlJy KidCcrFX0cXl5nOHKfAUQlxNy h cHN (more content not included)... Normal [facility] Reverse T3 LCon 01-30-2024 Reverse T3 LC 17.7 ng/dL Invalid Interpretation Code 9.2-24.1 [facility] Comment on above: Result Comment: This test was developed and its performance characteristics determined by [facility]. It has not been cleared or approved by the Food and Drug Administration. Performed At: [address] [id number] Michelet Barnes MD Ph:[phone] Performed By: #### 1 [id number] ####[facility] (DEFAULT)[address] [place] [address] Free T4on 01-27-2024 Free T4 [Mass/Vol] 0.89 ng/dL Normal 0.61-1.12 [facility] Comment on above: Performed By: #### 1 [id number] ####[facility] (DEFAULT)[address] [place] [address] T3 Free LCon 01-27-2024 Triiodothyronine,Fr ee,Serum LC 3.9 pg/mL Invalid Interpretation Code 2.0-4.4 [facility] Comment on above: Result Comment: Perf ormed At: [facility] [id number] [place], [place] [id number] Yumiko Sheppard PhD Ph:[phone] Performed By: #### 1 [id number] ####[facility] (DEFAULT)[address] [place] [address] T3 Total LCon 01-27-2024 Triiodothyronine (T3) LC 133 ng/dL Invalid Interpretation Code 71-180 [facility] Comment on above: Result Comment: Perf ormed At: [facility] [address] [place], [place] [id number] Yumiko Sheppard PhD Ph:[phone] Performed By: #### 1 [id number], [id number] ####[facility] (DEFAULT)[address] [place] [address] Provider Orderson 01-26-2024 Provider Orders [id number] TIFF Normal [facility] Coding Summaryon 12-24-2023 Coding Summary HTMLBase 64 ZmmvlgtbZFr5hXi+PGhlYWQ+P M7IFXXyI93kfPVxkJ3bD0NYRQ lOSywgQVBQTElOSyIgbmFtZT1 kaXNjZXJu IC8+BK2rHAUyKgrajGQyz6U2f UO3T20dpb8qYWihbOU5SFOqIc Enmkjvk2mphMv2WTagJzkhOhA t MBBmeW30CKD1dV35Tl40mXDhw NAhk0pizXa1WtWzTEJvNNK8hJ jwLWzbf2NuJSXeG80arBIkn2Y 6 OYChkFsqjLKhOgVegZN6qI3aP Vsnieshm2megqnxTsl3kg36gO Woe2E5nRV5U3BbisV6UEDgkUV g HkxrhIDIvR9bnpxmp1mqdtfqB aEpXIFaRSh5UBk6QTDysKyqUz HqCL61MUW8NXTuoxMbY1YsTWX s dVqhOdB2h0T7Gg6HA0MIZmifY 1VNTUFSWTwvdGQ+GR78ks79A1 LdWajoDmq2QVVrAQI5hPW0nH0 n GZApVBzvi2X3dCQ2Z0WjfyMvb s9vb3sgGSGeAEkyZ53otDVxa6 A8VGZwjMC8TXEspFrdNwDoyB2 3 Oyc+RCRgsAfcl7YwAxfeb9ogv 2cnmOd0DpooPUTwvuApgQzvJB J3w7HeYh5cFJQboXU4jVV7wM5 i PuUnTyH2LSweF991GrLwdXBkY rndO80jM7FneUG+EEYiRtt5OZ XqpOyyWZ4jZ4HpWXXqiyspmQY m rDlwIB0sCXFqnisjDWAmzX8lM HPcX5p3UtIbHdZ7REbwP5QwDA HgimvfDl53hO9pWmFcBpX6XRg u N0VbvbF0LTTxvUBkTZnwBYH9N 48fy0N4EAFxBPToVTQ2hHJ4zH 1hbGlnbjogbGVmdDsgdmVydGl j KNzmXCbiH017DFCacGyfSbHrQ GluZyBEYXRlOiAgMDQvMDQvMj AyNDwvdGQ+LHPgDOC1uVvxBZD n hLMoBQlvOm1wsWtufKasQX5lY YPahslmTTWkgX9vDISmaOFjrQ jqYR5pXBRhqecwg896VfFvWXL 0 RBQiiEItK8OzgF3mYxLrKHMvM XUmN7DzcAGkPBfmO314KHrnEp N8ZNYtmoKdV7RaEBMdtTtnWiZ 0 c2E8Fz0Gh8BazenwN3JrvGPsO gZcZbbuGDb5D2EiIakzdCX+PC 22FTUlCW48PAe2QYW9oHcnGHp i GFTbH2WfzW5jDdXvVYCaRYSbS yc+PHRhYmxlIHdpZHRoPScxMD YbWaWmdZifFB3eAl9lRBAmFQG v fHtvbTDiScLtl1xvXMKfOCxtS D2xuDpfT9LugTD4BDUow6h1Ki 61N13aK9EbmEQ+JIDlbKW5gMM 0 gV3hKbZdOdI0XFtiO962IbQht TLfYtcfo0izo5laaHn7FxJ0FS MrxqImfLbzEQV1s2ZcHu55Z60 s IHdpZHRoPSIxNSUiIHZhbGlnb f0yxI8uBl0+AEQdqME3lCQ4qV 3vSkKvUbU8RQutF629OxVsqFM v Ppvyz9hpq2htqRk7KnLrCUFbp iUoqPwqJPL2z1ZpRb60Y8VdiN kts8OfAis7zf53nFEcx2Q7mJI 9 R3VmYVVgqbmdkWDpuEanVQ9nQ BIkoxrjKYMxhU1fCCBfR8o9Sd TiRjK4APhyZ6OoumB3WPDyiEG g UVNmoMCMcX7zeybkd4wrbtpsU fJmWOBhGKp0RKz6TINtgEhxGa GtGTS7SeC8CCA2eQBmpR0gfOb n bdnibB1rQzx+EXU2pNDytENSO S3eDjanlMN+NYZiCIL7kHgcOF yqHCMwfT3oMTLvK9g2MsEhOjL 1 MTpgM0UtraW5FYWitXIzPIPal VOLhL1fixdby9owslmlSaGmUI ArIIr6OVh5NDYzjVfyAwDjEEA 0 OpU8ZOX4vSOgmN9ggJxwtmxcf G9wOyc+WdqzzKckXCN1TWm3J1 YnVkt6QKGqnSyrCB4zkBFmSNu u Ob3miXjdoUifWL4wCPKludcat 074VlMxe7kuIIOisREbQEahAX J8V92rj0R9JFZzEJGcHJT4sTR 4 xG4blTqvcttacHXmkRskqoTvm ZhuNYumFHacK251RJAkqTnhHp LrUVs5H8PxRwf0ORVpsMadEJ2 n qWEeFXbrDs3lnLmonOdwCC1uR PLaqtxyo321UbIdw8cvQRLrsB FwWPiuMCA0Y51yn9V3QUCzMJL w ONF6qTC6qP0ifSxoafmyvFTiz KkuqyTunVwmBYymZHwrM006MV UpeQgfQqDewEw5R9VbXas1DJC z mWomOJ1aaLUoPXglMv7lvGnuw TjeAC8nQDDfcbjhl925JcYsb3 rzDCCfyEGrKLheFQG4O08jw1T 6 ORKkCMDdPOZ6tUO6qS6iwEmun jogbGVmdDsgdmVydGljYWwtYW lbL085UBWkxEwtUaCvjBxzseF g PRchXZw3I6WnNqqjhYG+PC90Y HNjNP61bMSidGQes9srxDq6Yi BgBHEiPWZ3hUwnLJdve7AuZEV t Y19fzJNfz9N0BFPgqQxxjRBwC bGbjHN7lO0oAOthsmnhf6ukbx dbZekhd0mwbg02nA06W42oXWk p RRXzOHHtMUOiTLHjkGwwoa3xl G9wIi8+HSCkdKB1qDZ2vA3pMQ SeAdP1XJtyY851WoSjwTDpGeo j o1str5qkgAx6NfX9YXFforCun DytOJH3f1VcJt89V48hSLquBZ MhAFEyHDVvTPGzkBdvqo9clR4 w Ii8+GOIggXC6hRL5zM3mWrCqK fD5YIglI076PfPnuWJsDkkxU7 8tG8AfaCN+DYEjCjk4XHPtlQj s AS2kwGFxHRhsOg1hIDV2JtDjT jEwOGwxW2FhACMzwqnvucrlzG I1FDAzQBHnhN71Mb4icRnuKUW w lOKSaG6myeftr1iqctymAsKfR IYlYUu0SLc1OKEuwHnwFsQbFH K1OxG7MLC7fAGcsK8jdLumepf g rS7tO0NlMWWzqtjgKz53kD4jC zFlWmP2PSbrCeb+AdNCVt6wXl EERKOuYGsIG7eETkHNHJ50ZL4 8 nACpg5J3bSJ0D0LuVOSymycue oibiRC2IKZeQHRoaQ76iTYrGB jtRf9em9H5s198KSEuVUMdnJ2 7 Os4tnKqqHWZumUWVeT1jwwdpt 6nelnnoHyIdWOFoFYx1OPj6FT GxmHfdHjDcEEG4YwE3EAD7gCK h xH0ffRohmkozjY9gPgm+MTAvM STdFRr0AbzqvKF+CIJkBZE8dC luCRygJDRyjJ5oJYErD9a4YwK w EgC7MXdsX1UkTOHtecabMf45n L9cTxQpYhQ0ZPerT2LumvM5RY BdgFKbGXuvKDB3P33bp2M5XJP w ARQiIRL0cWL2lB4pdPliawbxe GVmdDsgdmVydGljYWwtYWxpZ2 78LYLevHvnAxX5LXisMIRcCJ8 0 VD39gRVhu2O0dYL0G2RuDOAud yzgolztoUN4SPXbIHFbfJ36hJ TmIQewFt7iu4B0x636RVJfKVP w cG39Yo8xlJmiGZZhpZQPvK2xv mpqr1ouctgdBqUvEYVaBTb5LD o1ARBfpNclUkHlHUH6KbA0UTR 0 lTKeaK1mmUbgnajctL7zPij+R dNCKMrDAG95HX82qCNjm1T0cF H8P3XkCZTodcxqjyuudKP6PUF u WDPuaV75mOMiLSdjJi2qi8D5i 549ZGGjIXHhlP14Ku1vqKvsAC BheWLGfC7hmnuxc5hmfamoQeI w OAJkZFw3JEy3ADMcbVtzCgPxN FK8AoB2SPP6gYDvyV8vvPiobj rvxY3kBnn+T1J4M4TqZuykkTA + FI91UDYhAD45nKEaeKGwl1bpo Yt5EdWsMPMgEDY0xJpySNynd5 LiRYXrJ69aaSTit5A3UNZgnNt h mDEqFzTujNK2wS2yRJkhaacos 1wmqvupFuhwh7bqnl13iZ17T0 9sIHdpZHRoPSIzMCUiIHZhbGl n uq2buF0xAl1+FFXwnEB8oNQ3e O6kVvMwAwF2LTvzF524XrJzrN LfHosgc3yrb8tbnMo4SnBiWHY g kxOcsYcdHWC1b0TuPj40Y82hW HdpZHRoPSIyMCUiIHZhbGlnbj 2dxG8pTa7+DB9dm1zotk91kG6 8 dHI+EWOsDZG2uAjtNInqGJInw D2uQFisDtV8IOAcObYjtI58lY AlKGoxDn2vtUyddJgvYN7xMIQ p eyhua667TaYfp3xpKOXupOPyE PiwFTH3E39vx5Q7DBFnBYByIV Y4qJU1fT4cpBtpofganTEuxBi g caKkoCgwPBesIOpiT062JPLai DbdOeXemCGrM2emiyZBJE9kYn wvdGQ+WFHeWCN4rPauUPtxHCS k rQ9dMMGfB6r6MtXiRqY0LHupJ 2XysnS2QYEsfKGjJKFrlICOoT 6klqpru3sbqibgUyDuYCRwKRm 0 UQf6YXPueBrlWjFyJNL3VtS3E PV5fNIiqP8rwCzalyagdD2mVf c+RklOOjwvdGQ+ODXlLTM2lHz l IZasFTQqbE0yKQRkZ5n0FbMlG kF7FPtcI6QkpvK1OPIxlCUzTA RqgUXPpS8qaphcl7sbyijuYmF w WYQhJIa3VLc3VLFfkGqfLpWtC JQ1OfA7DWC3xRJvrE1idWhdki zxaT3bVkf+TVJOOjwvdGQ+PHR k DNN7tQnmESqoVFZifC6cTYAzO 5r8ElBiOmQ2XWueD6FjxpD3VF AjsXOvRQQooRIVeZ2jvqemb9z v zgilIkMiLPYlMAt8YDc1OGLjg WsyNmFjLPV2DwH4ORS5tTRprO 3gaVcqruiqnK3uDvn+QRH6AJG 6 US70KJ75K4VyXwulvVUdyIM+P HRhYmxlIHdpZHRoPScxMDAlJy ZvuCcwCY7aFv8xEHRjJCKgoEn h cHN (more content not included)... Normal [facility] ED Clinical Summaryon 2023 ED Clinical Summary [facility] ? Urgent Care [address] [place] [address] Clinical Summary PERSON INFORMATION Name: EB WILCOX Age: 48 Years Sex: FEMALE : 1975 MRN: Acct#: Visit Reason: UC - Eye Pain; LEFT EYE PAIN Arrival: 12/19/2023 16:59:18 Discharge: 12/19/2023 19:20:00 LOS: 000 02:21 Check In: 12/19/2023 16:59:18 Checkout: 12/19/2023 19:20:00 Address: [address] [place], [place] [id number] PCP: MIC BOWEN PROVIDER INFORMATION Provider Role Assigned Unassigned Jelena Valdez [employer] Nurse 12/19/2023 17:20:22 Johanna Doan PA-C ED PA 12/19/2023 17:27:33 VITALS INFORMATION Vital Sign Triage Latest Temperature Tympanic Temperature Temporal Artery Pulse Rate O2 Sat 98 % 98 % Respiratory Rate Blood Pressure /81 mmHg /81 mmHg MEDICAL INFORMATION Medications Given: Medication Dose Route acetaminophen-hydrocodone (acetaminophen-hydrocodon e 325 mg-5 mg oral tablet) 1 tab(s) Oral bacitracin/neomycin/polym yxin B ophthalmic 3.5 gm Ophthalmic Allergy Information: No Known Medication Allergies; Glutens PHYSICIAN DOCUMENTATION DISCHARGE INFORMATION: Discharge Disposition: Home Discharge Location: Home PATIENT EDUCATION INFORMATION Instructions: Uveitis; Corneal Ulcer; Photophobia; How to Use Eye Drops and Eye Ointments; Pain Medicine Instructions Follow-Up: With: Address: When: ROMINA REYNOSO [address] [id number] In 2 days 12/21/2023 Comments: support services specialist. Call first thing Thursday AM to schedule for appointment With: Address: When: MIC BOWEN [address] [place] [address] DIAGNOSIS: 1:Traumatic iritis; 2:Corneal ulcer of left eye Patient Understands: Yes - Patient/family/caregiver verbalizes understanding of instructions given Comment: Normal [facility] ED Patient Summaryon 024 ED Patient Summary [facility] ? Urgent Care [address] [place] [address] [id number] PATIENT DISCHARGE INSTRUCTIONS Patient Information Name: EB WILCOX Age: 48 Years Date of : 1975 [facility]: [id number] Reason For Visit: UC - Eye Pain; LEFT EYE PAIN Arrival Time: 12/19/2023 16:59:18 Primary Care Physician: MIC BOWEN Attending Physician: Johanna Doan PA-C Comment: Patient Education With: Address: When: ROMINA REYNOSO [address] [address] In 2 days 12/21/2023 Comments: support services specialist. Call first thing Thursday AM to schedule for appointment With: Address: When: MIC BOWEN [address] [place] [address] Uveitis Uveitis is one cause of inflammation of the eye. It often affects the middle part of the eye (uvea). This area contains many of the blood vessels that supply the rest of the eye. The uvea is made up of three structures: ? The middle layer of the eyeball (choroid). ? The colored part of the front of the eye (iris). ? The connection between the iris and the choroid (ciliary body). Uveitis can affect any part of the uvea, as well as other important structures in the eye. There are many types of uveitis: ? Iritis, or anterior uveitis, affects the iris. This is the most common type. It can start suddenly and can last for many weeks. ? Intermediate uveitis affects the structures in the middle of the eye. This includes the fluid that fills the eye (vitreous). This type can last for years and can come and go. ? Posterior uveitis affects the structures in the back of the eye. This includes the light-sensitive layer of cells that is needed for vision (retina). This is the least common type. ? Panuveitis affects all layers of the eye. Uveitis can affect one eye or both eyes. It can cause short-term or long-term symptoms. Symptoms may go away and come back. Over time, the condition can damage or destroy eye structures and may lead to temporary or permanent vision loss. What are the causes? This condition may be caused by: ? Autoimmune diseases. These are diseases in which the body's defense system (immune system) mistakenly attacks the body's own tissues. ? Infections that start in the eye or spread to the eye. ? Inflammatory diseases that can affect the eye. ? Eye injuries. ? Eye surgery. You may have medical tests, including blood tests, to help determine the cause of your uveitis. In some cases, the cause may not be known. What increases the risk? The following factors may make you more likely to develop this condition: ? Being 20?60 years old. ? Using tobacco products, such as cigarettes. ? Taking certain medicines. ? Having certain medical conditions, including autoimmune conditions, sarcoidosis, tuberculosis, and syphilis. ? Having certain genes passed to you from a parent (inherited). What are the signs or symptoms? Symptoms of this condition depend on the type of uveitis. Common symptoms include: ? Eye redness. ? Eye pain. ? Blurred vision. ? Decreased vision. ? Having a blind spot in your vision. ? Floating dark spots in your vision (floaters). ? Seeing flashing lights (photopsia). ? Sensitivity to light (photophobia). ? A white section on the lower part of the iris (hypopyon). How is this diagnosed? This condition may be diagnosed based on: ? A vision test using eye charts. ? A complete eye exam. This type of eye exam usually involves eye drops to dilate your pupils to get a view into the back of the eye. If the back of the eye cannot be seen, an ultrasound exam may be done. ? A test to measure eye pressure. How is this treated? Treatment for this condition will depend on the type of uveitis that you have. It should be started right away to help prevent vision loss. Treatment may include: ? Medicines to treat inflammation (steroids). You may get steroids as eye drops, injections into the eye, or by mouth (orally). ? Medicines to treat infection. These may be given as eye drops, injections into the eye, or orally. ? Eye drops to dilate the pupil and reduce pressure inside the eye. ? In some cases, medicines may be given through an IV or through a device that is implanted inside the eye. ? Other medicines may be needed depending on the cause of your uveitis. ? In rare cases, surgery may be needed (vitrectomy). Follow these instructions at home: ? Take xqrb-vbu-gaumxnu and prescription medicines only as told by your health care provider. ? Follow instructions for safely putting eye drops in your eyes. ? Drink enough fluid to keep your urine pale yellow. ? Follow instructions from your health care provider about any restrictions on your activities. Ask what activities are safe for you. ? Do not use any products that contain nicotine or tobacco. The (more content not included)... Normal [facility] CT abdomen pelvis w conon CT abdomen pelvis w [facility] [place] [address] [place], [place] [id number] CT Scan Report Signed Patient: Eb De La Torre MR#: [id number] 73 : 1975 Acct:[id number] Age/Sex: 48 / F ADM Date: 11/09/23 Loc: CT Room: Type: [facility] Attending Dr: Debi Mares MD Copies [...] Lilia Thompson M.D.11/09/2023 5:17 PM Dictation Location: [place] [address] Transcribed By: [facility] 11/09/231716 Dictated By: Ana Lilia [place] MD 11/09/231709 Signed By: 11/09/231716 [facility] Laboratory - Cytologyon 10-22 [employer] Cyto stain Nom (Cvx/Vag) [ID] [facility] Comment on above: KMB, CT(ASCP) CT scr eening location: [employer] [facility], [address] [place] [address]. Cytology study comment Cyto stain Reza (Cvx/Vag) [Interp] [facility] Comment on above: This Pap test has be en evaluated with computer assisted technology. Microscopic observation Cyto stain Nom (Cvx) [facility] Comment on above: Cytology Results: Ne gative for intraepithelial lesion or malignancy. Specimen source Cyto stain Nom (Cvx/Vag) [facility] Comment on above: None given Statement of adequacy Cyto stain (Cvx/Vag) [Interp] [facility] Comment on above: Satisfactory for yoseph luation. Endocervical/transformation zone component absent. Laboratory - Microbiology an d Antimicrobial susceptibilityon 11-03-2023 HPV E6+E7 mRNA GEORGIANA+probe Ql (Cvx) Not detected Not Detected [facility] Comment on above: Methodology: Transcr iption-Mediated Amplification This assay detects E6/E7 viral messenger RNA (mRNA) from 14 high-risk HPV types (16,18,31,33,35,39,45,51,52,56,58,59,66,68). Cervical sources are required for HPV testing. If a vaginal source from a patient who has had a total hysterectomy with removal of cervix was submitted, please contact the testing laboratory for alternative testing options. For additional information, please refer to http://education.[employer]/faq/PGC376f3 (This link if provided for information/ educational purposes only.) No Panel Informationon 11-03 (ALWAYS MESSAGE) [facility] Comment on above: EXPLANATORY NOTE: The [...] historic and current clinical information. Clinical information [facility] Comment on above: None given Date of previous biopsy [facility] Comment on above: NONE GIVEN Date of previous PAP smear [facility] Comment on above: NONE GIVEN Last menstrual period start date [facility] Comment on above: NONE GIVEN Performing Organizat ion Information Site ID: [id number] Name: [facility] Address: [address] [place] [phone] Director: Bryce Artis MD [facility] BI MAMMOGRAM SCREENING TOMOS YABENAIS BILATERALon 11-02-2023 BI MAMMOGRAM SCREENING TOMOSYNTHESIS BILATERAL [...] IS VERY IMPORTANT TO YOUR HEALTH. THE [employer] GUIDELINES RECOMMEND THAT WOMEN 40 [...] emptying studyon 10-26-2023 NM gastric emptying study [facility] [place] [address] Nuclear Medicine Report Signed Patient: Eb De La Torre MR#: [id number] [birth year] : 1975 Acct:[id number] Age/Sex: 48 / F ADM Date: 10/26/23 Loc: [place] Room: Type: [facility] Attending Dr: Debi Mares MD Copies [...] M.D.10/26/2023 12:42 PM Dictation Location: [place] [address] Transcribed By: TUCKER 10/26/23 1242 Dictated By: Ana Lilia Thompson MD 10/26/23 0921 Signed By: 10/26/23 124 [facility] HCG ( test) [place].rapi d Ql (U)Ordered By: Debi Mares on 08-31-2023 HCG ( test) Ql (U) Negative [facility] HCG,Urineon 08-31-2023 Beta HCG ( test) Ql (U) Negative Normal [facility] Comment on above: Result Comment: PERF ORMED BY: [place] [address] PATHOLOGIST FRUIT HARVEST MACHINE OPERATOR RIZWANA NEGRO M.D. Performed By: #### U HCG #### [place] [id number] [facility] [place] Michael 08-31-2023 L ----- Specimen: [id number] Received: 08/31/23 Status: ENOC Paredes Num: [id number] Spec Type: Surgical Subm Dr: Debi Mares MD Tissues: A Duodenum - Biopsy (DUOD) B GASTRIC FOR HP (GASTRIC HP) Procedures: HE/4, Gross/Micro L4/2, H PYLORI Age/ Patient Sex Location Account Attending Physician Eb De La Torre 48/F [id number] Debi Mares MD SPEC NUM: [id number] RECD: 08/31/23 STATUS: ENOC PAREEDS NUM: [id number] RICKY: 08/31/23 [facility] DR: Debi Mares MD ENTERED: 08/31/[address] [facility] [address]: DELMAR TYPE: Surgical DEPT: S ENTERED BY: [id number] RECV BY: [id number] ORDERED: HE/4, Gross/Micro L4/2, H PYLORI ORDERED: [...] submitted in one cassette labeled A1. Specimen: [id number] Received: 08/31/23 Status: ENOC Paredes Num: [id number] Spec Type: Surgical Subm Dr: Debi Mares MD Tissues: A Duodenum - Biopsy (DUOD) B GASTRIC FOR HP (GASTRIC HP) Procedures: HE/4, Gross/Micro L4/2, H PYLORI Patient: Eb De La Torre [id number] (Continued) Specimen: [id number] Received: 08/31/23 (Continued) Gross Description (Continued) Signed (signature on file) Christine Snyder MD 09/01/23 173 Specimen: [id number] Received: 08/31/23 Status: ENOC Paredes Num: [id number] Spec Type: Surgical Subm Dr: Debi Mares MD Tissues: A Duodenum - Biopsy (DUOD) B GASTRIC FOR HP (GASTRIC HP) Procedures: HE/4, Gross/Micro L4/2, H PYLORI Patient: Eb De La Torre [id number] (Continued) Specimen: [id number] Received: 08/31/23-1213 (Continued) Gross Description (Continued) B. Received in formalin labeled with the patient's name, date of and gastric biopsy is one mckinney tissue measuring 0.3 cm. Entirely submitted in one cassette labeled B1. Microscopic Description A. Two H E slides reviewed. The microscopic examination confirms the diagnosis. B. Two H E slides reviewed. The microscopic examination confirms the diagnosis. CPT Codes 03071n3, 09772 x 1 Specimen: [id number] Received: 08/31/23 Status: ENOC Paredes Num: [id number] Spec Type: Surgical Subm Dr: Debi Mares MD Tissues: A Duodenum - Biopsy (DUOD) B GASTRIC FOR HP (GASTRIC HP) Procedures: HE/4, Gross/Micro L4/2, H PYLORI Patient: Eb De La Torre [id number] (Continued) Signed (signature on file) Christine Snyder MD 09/01/23 1731 [facility] Reverse T3 LCon 08-12-2023 Reverse T3 LC 12.5 ng/dL Invalid Interpretation Code 9.2-24.1 [facility] Comment on above: Result Comment: This test was developed and its performance characteristics determined by [facility]. It has not been cleared or approved by the Food and Drug Administration. Performed At: [address] [id number] Michelet Barnes MD Ph:[phone] Performed By: #### 1 [id number], [id number], [id number] ####[facility] (DEFAULT)[address] [place] [address] US abdomen limitedon 023 US abdomen limited [facility] [place] [address] Ultrasound Report Signed Patient: Eb De La Torre MR#: [id number] [birth year] : 1975 Acct:[id number] Age/Sex: 48 / F ADM Date: 08/10/23 Loc: Room: Type: [facility] Attending Dr: Debi Mares MD Ordering Provider: [...] D.OJames08/10/2023 12:44 PM Dictation Location: [place] [address] Tech: Brittney Otoole Transcribed By: [facility] 08/10/23 1244 Dictated By: Jian Farley Jr, DO 08/10/23 1243 Signed By: 08/10/23 [facility]4 [facility] Coding Summaryon 08-07-2023 Coding Summary HTMLBase 64 EqgvuebsLOr0gYc+PGhlYWQ+P D4FYJCgF05jkUNidX8wH6XNYE lOSywgQVBQTElOSyIgbmFtZT1 kaXNjZXJu IC8+HM1xIURtCqyrlRGpl2L2g TU9M62pgg3bUDfjrWV2WXLzHf Goawvfe9zchKx7DRgrWwobCqV t OBZwdF59PNP2zU24Po84bDZni TZtf2fxuDa7CnOzZEUiXAQ9yS owBSthw7HyDGYbH63mcNYik3M 6 GVBxnDiodCGxZrDorMX1rS2yI Xpvcvdro5aohxffQmb2oe09jU Kwx2J1cKH8U4VuouY9XJIbkJK g OzqzfEXWdY5fcdweo7hvtlzbZ eAtCOIwDZj2DFd8AOOoxPyaLr ShXW71IHI5XJTcljDgG1FuEWP s hRfaZzR3h2J4Iq2WV4MESnmkF 1VNTUFSWTwvdGQ+PP77xx98V0 CgOexpSqn4TQToHOV7tHK1lW6 n TDOdSSvdj1O2wCP8R7YsqoFek v1qb9fyZGRlAMhdF53fwQSiu9 T6ZWLarRI0GFUyiJyzShVlyW8 3 Oyc+RNQjwYjse3RuHrunb8xvo 9sajQz8NyrdABIxdoEsrBvcIU O9y3TrLf1oICIvnRY7wPD7sU1 i KbOmQyF3YGbqL257OwEsuJPaO ndyC66mU9HpyJM+FZXeQuo2CA KxgYteIJ6aM4KoVFVhirlpaWA m bVlzGB1bCMBdgwxtVCKkoK0lZ NDjM3z2NkTnXwF4OYwtH3RjQR IvrdaqSo45yY4bLpCpQsE6VVx u T5IvqhX1JYPmvAAnXIvuKNZ8W 63qp9U3JGMyYGXyPQZ1wFF9nV 1hbGlnbjogbGVmdDsgdmVydGl j FPgfTTjlS886DVVifGtcXkHoM GluZyBEYXRlOiAgMTEvMTcvMj AyMzwvdGQ+UBEyPSI2lZycROO n cZLiRDopGs0ffUmlvFrzCN7iR HGfpcvcBENhjF2eLDVtgWKwtZ gfEU1vMVSxovnxr718VyNsKOU 0 EWVwqKGvK5WclW2eRqKyOQZgJ ELbL0JtiRGkJLxqN296DLslCq V3NAHfeqFuF2DwJRPvjVawPwI 0 x7D6Yr8Xf0SdxathQ0MgzRWiK sHtLnaxAOo2K7GzIqhmsNB+PC 45YXFcDY16DQd2EPM7vLpnDNs i SYAmJ3LtiN5xJbOfIGRcIWIeN yc+PHRhYmxlIHdpZHRoPScxMD WmFuNupGuqGE3gKv7kHQIrWVF v dBzinAJlUsBzm0vbKSKbHXdpE D2vtNvgG7FazHL1BQNsp6o3Px 82O95wS8CtiLH+MJOcjGB0fHO 0 hO2aGeBlAxW8FGygZ775IsHmq YJfYkdak1qxl4twsOj8TfB6XR LwpfGybClkMLA5a6JtMs26N21 s IHdpZHRoPSIxNSUiIHZhbGlnb d2ltH6qCr4+PRFpyMX2bQW3cG 7aXjSoDiQ6TVwnS648OlGthOH v Ueaad3zam9ggsCo1DrAbAMIvp cGexEmlZHX8q8EoIl75Y0OqxM rdz9KvQpx6lk73jZBpd1A5cNB 9 S5KiCYTcvrnfoGDmsOhfUC0mO NCdzfdgSLEwnI2fMQUzA9l2Su CeEqE7CLppK4QnbsA4WPMthXH g LFTvrXDYkF7cxwfhv4rjvjqtD aPoHXRvJYz9SLm0PXIkpEflDv AhFNR7SdD3PBC4fJEisT7piHb n trxjwP6lGnc+ZTP4bZWqtGRKY F7qRxdvuFW+FDMxFEF8vAwxEV bnOKDsuO7kNNKzZ6s7KjXpArX 1 GFgrL8NaloA2FZAwuUEhRISlh FVSmJ9kqedie9cljnqnVcAkDA GfVQx9POl7XUPtpWjvYoAzIFZ 0 EaP6UUR0pSXniM1wqPlqchjkz G9wOyc+SsjtqTotXBW9CRs3Z4 UgPti6HIMrlVwlWB5ptPDsNDz u Lk0luSnhrFgcVN1jZWVdfmilc 827ImYlz7zqUBJdwEWjBEhtAQ Y7B31oo6E4BBHdEHTjZAB9qNU 4 mX3wdEshwqqeuKRwiCqwamUun SaxHZdlGHgaJ495AWGqyPddKy VxQFp2A2RkGuy8UCGflVhpJS0 n aSFwEMnnOx9utPdsdYsiBP7xE BGsjuycl877BjPup4tyFKTjwY IiHCdnBXR1A97er3O6ERPuUVP w TAL6mWZ0xT6ioGwtomejtNXcf TpeukRunGipTDqnJCxuA822RQ WsbUqjHjYkiQr4K5DhFga0YRN z hSlpIA2ytTGbLXzqZz7ugAhlq TafRD3uRUYaamfoj792LsGal0 unHJLdkYChJOnmPSH3A52yy6Q 6 ESBjLXDkOEH4mJS5uY8yeHhso jogbGVmdDsgdmVydGljYWwtYW bqY348PXWroFcxIhYmxTnkvtO g OOeqBHg3O1KqLwahsVW+PC90Y XJaJQ69hWKorFQvl9jsxNx2Dk JhMENzVKH9yTqsTWsnf0MrEBX t P33pwGXvj2P6QORbzTokkMFyX eNfmIF6zI1kYBbhcuigy1tysv klUpoca2menz61cI69K61tHZa p PQNbHMIfCILfILSsgDrcbz1pg G9wIi8+GVIhqFZ8uBO5dL0lRW NbTmD9VRkpW367IkMqyCSaFuu j v9jjl0luvGc4ApY9JSCxhzFdz RukECC4m2FzDo07J72yFDdsSO OaZROoZMJqJUZyqIwpqq0rsW8 w Ii8+EIAacWH6eQB9mU0tEfJkK fV6MFfkI372OcIigDWgGknzV5 5lG8VfgQU+IVVwFvl1PTZkrXm s RN6ymBUcXNbjKe9lGUN7IqLgT tDsBHdnS3KzAEFmxykvmzbinM K3WQCyXOBfvV67Jj9hiNgfQII w jIAWhW8ofvyqw6dzjzurPoIuP FQgNLv9OUk7CSLdgYxwKaGxVU J8WeY4RIY4oMFkjC9cnPxplti g dJ8fL5UpDEQooiyyQb47oP7mO qRfKuH7WOcgAxp+LoGVRq0qOn BTOWFkQFiVV0qIFvLWOG35MY7 8 mVHzb8H0mKU4K2AoEIVcenhku scqvVO4PKCmSKOeyQ10oALgOX ejBq4cl1K3w681PJWzCWCcpY5 7 Uy1hmZbcFDCagJTMdR1rajjcn 9bgxserIfZtBEEqWCu6ZMb8GJ EmsWzzPaIiOFN0HgE7LKK9hHP h rS6ioHlpvqanoH3uEbc+MTAvM YSvUMa9OoxzwVU+ZOIgGPJ9vN hnOSboGELifM5kJNIuO3n2YpP w IeH3GHquB1DyIPIapxrnDl21m W8uPwDqRuO4BYitW4GrhlZ6DV OwyFUkCKzdATV0U40ik5A2GAH w NRFyAVW7wXZ3nQ6uhVvdzpbru GVmdDsgdmVydGljYWwtYWxpZ2 93AGGdrAhtYpE1AEuxIFYnTO9 0 FZ23jLCvm6Q3yOT6P7WgQRZtt jftqrkfyMA1KBRvBRGsbX18jA OnCZmaZo3wx9W9o174OIHgNWJ w qG69Xe1ztDubQEEneCCNuV6kq dnbn2qnjkztSfLeRZRzDPx7LS m2ZVHyvMrmIsOdGCY0HtU8INT 0 jDUxsK4yrSlgsnugcR4tDnf+R bAVIOuTTB09FE17bXCoj3B5pO S2I9XfAVLqcydgecsitVD5OBR u MYWlkI36wEJuMKkbBm4dd3T2t 880QYNzHPTtnR45Aj7qjPipAP JrmCXLnU8uonzmg7itqxeaBwM w GMLsYPr0OLv3COIluNtxJnJqR UD3HbC2ZPR6hURniD5ccZyiii lsiW9gTtx+S9J1H1OeBjbjiEH + PH18NDRtLC96tIRzxPNue8yee Ex4AqIbZWLtYTK1sFmdAFhmj2 QySPJbJ43fiJUtt8R8XIJiwHn h rATaMxUnuXV7tS9uQOejgqdfq 5scxiyzQhcgb9opwm07kI14Q3 9sIHdpZHRoPSIzMCUiIHZhbGl n zs3aaI2eIt1+SPSwnRI5pYA6u F5uMvBeFdA9ICxkF496TlEpxL YgYfopv2oel3iqfRs8BdHeDXU g bkJomCqxDAC3g3YdMg39A20eC HdpZHRoPSIyMCUiIHZhbGlnbj 1iuS0nNo5+AN0sg8lenh33fO9 8 dHI+COJlEFF4wNfqAUkoSPUts I9lIAuwUwY9RJHySwXlhD96aW YzODpvCi2yfDapyPvqQY6uZLC p xseih767TnGdd0hbIOCxlCRuT HohYHQ4N55go0S7JPKcJKWuYY R2rMS5yY9wzTvyokwboCPiuZx g rlCewNqyVDskIRuvH420IEPah IoiDoZpnBDbT3ietoOUXH5jGl wvdGQ+LVJnDKP2oUjjIIfoTPE k mY4qOGPiO0f1FxCoRzY4FFxfW 5DkczJ9CVTypVDuMRAngYBOyT 4fzspmd5dhpmvpDsSzIJLlWOh 0 WBn3GLMhlQtrLkFpPUL6GaR5W FG2ySSmrV9jfLqpyocavC5fYh c+RklOOjwvdGQ+RQKfCIV0nDx l REomFUYkrG4xCDLmN2n0MfMsP uM9PZxcQ1VbvaT7KMAgvMMhNA KowDIMwR4gwszlx0gfonwxJpS w ASNlHFj7TVq7WQYvuKpiKcGiX UY9AcW5HXS6fJZoaM8cbDxqfh tjeY1vYah+TVJOOjwvdGQ+PHR k MRU5xAwuNTxlENKcxM0jQCOnS 9j3NlQlVeV0GMzuH7IivnC6RL YklUDgXBVuwDNBjF4oukupa6s v vikzPaQmLRTmAZu2AOj1OYDmr PawRhSkZAD1NtG2VQJ9bEAonG 9feNzmlcglyF0fQan+XWJ8EXL 6 VG62ZM21Z6QxDdigtFKezZZ+P HRhYmxlIHdpZHRoPScxMDAlJy VtqRxeXB3gBr8eMNQvNMRymJb h cHN (more content not included)... Normal [facility] T3 Free LCon 08-07-2023 Triiodothyronine,Fr ee,Serum LC 3.5 pg/mL Invalid Interpretation Code 2.0-4.4 [facility] Comment on above: Result Comment: Perf ormed At: [facility] [address], [place] [id number] Yumiko Sheppard PhD Ph:[phone] Performed By: #### 1 [id number] ####[facility] (DEFAULT)[address] [place] [address] T3 Total LCon 08-07-2023 Triiodothyronine (T3) LC 159 ng/dL Invalid Interpretation Code 71-180 [facility] Comment on above: Result Comment: Perf ormed At: [facility] [address] [id number] Yumiko Sheppard PhD Ph:[phone] Performed By: #### 1 [id number], [id number] ####[facility] (DEFAULT)[address] [place] [address] Free T4on 08-06-2023 Free T4 [Mass/Vol] 0.55 ng/dL Low 0.61-1.12 [facility] Comment on above: Performed By: #### 1 [id number] ####[facility] (DEFAULT)[address] [place] [address] Provider Orderson 08-06-2023 Provider Orders [id number] Normal [facility] Coding Summaryon 05-06-2023 Coding Summary HTMLBase 64 DgjqsyxbSPm5hZj+PGhlYWQ+P L2TTHKqB35nnOBkcP5dV3CSJP lOSywgQVBQTElOSyIgbmFtZT1 kaXNjZXJu IC8+RH8xMQVoGxpvbFPxn8V6l NQ0K81qxp2kCMmnyUL0AOIdDm Apthvtf9tizZp7DXtsBuwyXiV t SNUxqP49JPP1oF37Zc08fNZwq ASad6yzpFa4FcCbLMRzRML6bC rhDXxqh1AzUPBmZ80nqZNts4Q 6 TTEwfHqjtNImQqSxxSK2qG1dX Vmkrsugi6pheljkLcd3yc81zR Lun7Y8iSF3G2NzvqB3PYVyoHO g FfmpxIPPiD5gvrsxm8brclehH uSjHRFrOXv4EVu2OHBjkQxgMh FfOB12IUT8YJVtfsHhK3MdZCP s jQehPkT9h5N8Kb5EU3XGJsxdW 1VNTUFSWTwvdGQ+EW86eo46H5 OpKfkfMfu3OBRoHAA5kLF9fD6 n SHNkLQien6D0kGA1T1HcaeXvw v2vp3ntIZLsJVcqU85xzIUts0 H0UDNgbTT1FXCuzUsxSxAdeC6 3 Oyc+EWPwfZdfk3JdEgsqw2ajs 4sxjUx3MwzmOZDyuuTzqWjqBV A8y4GrYt9dDTGtnYK0aFL8hD0 i RuBgVrF6PGpgU179SxQmwNHsB bqpH97jP6KouOM+LIThAql8MN HsaUffLR0yP2TgQFAvelieqZY m dZkkWO7jOBQiuvufISQjmK5oF BNlH1u1FiIhZfK8RRiyG4DmTQ JlnliyNw27gT0hWgWdYxF5YCh u N1MhnfM9NCZcbNBwSSvoKWP7C 08ar8E4ANZeTKXnKCB4lDK8dX 1hbGlnbjogbGVmdDsgdmVydGl j XZblDPujC909PTAywNshRiLfU GluZyBEYXRlOiAgMDgvMTYvMj AyMzwvdGQ+QIXnSSQ5pBitUME n oGOvJIkrIm0ytUlusWmvWD3rN PViefmqTALajN9lLMWpyDVbnG bkYH9oEWGgalreg911NiLsHWG 0 OILdjVBhE3NmfU4yXeLbIHFcQ ZQyW7JmkXJyIBowE378CWqlSt X4MDAnirPcW4AdOBDcmJfmRiB 0 f8Q7Le6Ll4WwilhvM7VnkFUbJ vHuPzkyXDc7D3FyVhpcpHK+PC 30ZMYdIL25FQb2OOG2nOtgZCh i VEQjF6HxoD7gLwYvFFJkPHHjQ yc+PHRhYmxlIHdpZHRoPScxMD RvOpSceTjeDE5eZg6xBBKjRHI v dSaazYWgSkUhh8jkKAToAIseJ W8dnFwvW3EmuFO8LKBqv3v7Ks 11G61fU1VfyRH+KNDlpAC6zZF 0 tX0cUyLaLfY2MEdrI031DjPkb WEqUphxg6rrw9ctwUz4UdQ7UX ApfvBszCegXFA9z4YrEb72O62 s IHdpZHRoPSIxNSUiIHZhbGlnb t5tpL9hYc1+FKEbdSD2eVE2aM 6zAkZaDrA1EVlhN442TzYnqJY v Tcdub1voq8xbtIe6FzWjFNDem kEotUleEYR4h0IrHb10E8HmiM jyr8YyQzz7pi19mHFpm5U2wOE 9 Q2EcOLIvhczitCYvdLfdSU9hH YCsuuqiMYHgsS8wOYGsY1e0Ca JsWjG9VRcfY2RdroP7QOZlrZT g NLCqsWCXlU6ipurxq9qqaepxE sUwILQwVMq2OZw3XZAsbBwvDt JzWCR1KsG2MQS3jWAeoN4qxFq n ednbfF1jXwm+ELT1eYDnkNVZO I4sSuqnpHT+OHXiVKV7dChmTD xfYAOrwP5fACEpE4z1CwHgKhF 1 FBudO7ZeedN0JRTepYRhCNNfc ITPeH7dpcbnw7vcknboWzAnFC FcWWt9ZVm3HXNlpOyoRpFaQBF 0 AqP0DYJ0bPGkjB8uiDfujlwvn G9wOyc+KoezdZfiKKM1UTl8U1 HuPkg7FRBppUyoQG0arOWqUWc u Am6frNxuiKyhDC5aXLKeiwtat 166VyMce5otYYOdkHOmCEaiIB N1B52kh5W5NMGaYDEuAHI6fQF 4 uN6vyPrqegwadHRloBoqueQik YplUVxxMSemL673OWVntExbQa AiQXk1Q5BxDdx7QTZbdRtqGE1 n yPNnBOrdKc9dhEqafUaeDA0nW ERtosnfa604UgEdz2sgOYBylY DnBBuuUXV1V06ni6U5FGInEVX w MAU0kXV9dT6vgDunihxlsHYre KutjrLwiVecCVodTZppL509IP AvmVpbUsGujOm9V3BvYwe9OVP z nHlzRD8lyICwTJefXa5fpQvbb UetWF2lHALrlzocp451YrFsx7 csGGTsgNSnURckURU2C46cc0D 6 ZZEdPJTtTJI8aGX0cG0hgEgir jogbGVmdDsgdmVydGljYWwtYW hwE955NLUxkDatWcEdtZthtoK g IWvkRJn1E0LoGovkaHG+PC90Y XKwYC15mBGuoLXtx6xwaUa4Cu NzHUIrJRK9uOdhKOycu0KeROX t C44ryAVge1M8VZHjxXzyeAUnR dWutZW7yS6iXNngpbcxy5ijwq ouNwkho3xoxv62qW10A02xXIj p CZIeGLSwNHOgUDIerCnvgn9is G9wIi8+OQFinSH8gVF5vX9sWN FyOpM3CVndP716LvSimRVfTax j i8qnw8tngDg7TlV1LYPphaNiw UmyMJR8g8FpJd53N24uPEwfLI QoGXNiHJUyHKAuoSrsbw3zoM9 w Ii8+KOZbiRW2qNT8dG6bSuFlR qY8CHftD660NgDxpWNtVjikX8 9lY2ZazBU+CWDcBvw5BUDjmGe s ZS2bhWMjNIeuQo6dPJV0BqKkZ hNzFPunU5SmEZYsmmdcykeyeY T2EPZiVAIdvU80Vr0yjXlpXNJ w tGYWaG5lazboq5zentxwGgNcA VTwYNe0CMo2FDZuwXujAnPjQZ Q6QrX5WDV6jNGlvG9rlJpreys g fW5rG9VcIIKlajoyFh63jW5zK hAbZrX7HXyfFix+NwHQTp0lBf BRZWKmOJvJN3oUFoGSIT57AY3 8 zAQxz9T2fOV7M4ApKUYqbcthc pdvkVB1TVDhKLGrmR66tTPuVP ptFl7vp9G0b778CNMgUCQrpP5 7 Zd5ghVlgNPJbuONEpX8enlpfp 2adxgrcRbYoXHFfBOk2OWd5UH QbyGzcQdNpWWN5BqM3YLM0nSI h bB6vhGzgfxqofW7oKdj+MTAvM BUwPTd9MjbsgYB+SUYfQGT7jE tbZDphVWLhhA7jWUCdS4q8YlN w LaE9ZSdpM2YtGELriccrCj30j C7iZpOkKkO7ARnwV4WmfmG9LE ThtRZzICntXRQ7K78ww7O4TVP w RRZiMUI7dUX1qN8jrKqlpihsg GVmdDsgdmVydGljYWwtYWxpZ2 18JOVfwFseBfA2YTpuPDLzRU9 0 QD93yYZvl4S3iNB2M7YjKGLmf vsybfapkAM8WSQwWYKilK37oL NrHRgzBy5mq1Q1m601OPIpSEB w cK49Wt7jcAoqXSVswVEJpN7ml pvqa4lmnaluCdPaZRYqPTx5QN t7GSUcqDbsBcDnQHR6PeQ8MHL 0 uRSwzK7jrUfutapsuY4gDha+R vOSSIpGCT63KK95oYCpe6Y7kP H5O9VmTYTiesoiejmdtFX6JIY u SSTcnS59kZRrJSekZx2jk1S3l 914GWKcOUWsbP71Al3gsDefQJ FjaHJDhU5rnnctk7yonqvkAcX w SNKcSLz2YQd9IVFvlAykJtBgZ DT3KoF7QJY2iRNolB6lfSlaiz ralF2bQum+V6P8Y1CoFgkyoJU + XN99MHIiOZ96hIEmmGBrq7ows Vv8BxZoXRZdDIE8qYkfEOeqq7 RlEUFlL53urPFaj9R2MZFgyEu h lBCzPmTqaJA9dM4nYFxyokmnn 1deugmyRagen5piny69tL30M7 9sIHdpZHRoPSIzMCUiIHZhbGl n zv8gvV9wCx9+CZOhqQO6mIC9v Y3rPvDqZsX3MFpbO241ZkSarK RaKpepl1fmv0xsbHr3HlIzRKM g iwMejBolIWB4n5IySg50E41yM HdpZHRoPSIyMCUiIHZhbGlnbj 1kqN0hGp8+QQ9tw8flcv06zP0 8 dHI+LPIfIQA7oSfbNPebBNXgp D7vOQoaSpC5DFDxTkQjhK44jL KvPLuaUh7spAvmzYhmUH3sOFW p bcalu638LwCzy0nsAAVkjFBhB LcnWXR2B14xl5U6SILtWFXgKI G3yGY4iY3cmWwqwvyaaLRgnWr g swBsfKsoUOgqSIaoE302NWQvs ScwEgRmdLNtV1usgbZOQX7xWp wvdGQ+TTExCAJ6gFrjJJmqYKF k rD2rAFGyP5d9HiQyYlC0DTgkC 0MypqK3XXMamJBlFRDxfTVUjT 1qlzfvf2xfmiesRtMkGMCnRDi 0 JOa7PIYmbJuzQbUiAGC9DoD8O TT8iZZohH4asVgvacclxP9zUr c+RklOOjwvdGQ+FSAmXHQ4pNt l NWkqNMXrgQ8pRJVyX2a8JqUiG jI5KJhrK0YfogO2LJCkfULlBD YycGIGlY5aznaqx5udgdmsNuR w CJRqHZy2BUo0KMQgjSdvXdSpK HO1IqT5ZGE2jDPnjD5glPfecn sylO5lRxj+TVJOOjwvdGQ+PHR k LXJ0gLfcITumKBYakT7kNFXeV 8f4IjXdDkK5THgqH2CdtvG4KQ EftZBsYLSjvRJHyH7zmuasj9f v qyvkIoRzWQEgEBo9MTc1VNNpx OjrSdCjCTH0DiM5HLE8yYEldD 9knKxgrhyuqY0bJrk+AQZ6WQR 6 QB52TI85I5JzRmhkfMAyxNE+P HRhYmxlIHdpZHRoPScxMDAlJy SocLggUV3rPe7xCMAhUNPsnLn h cHN (more content not included)... Normal [facility] T3 Total LCon 05-06-2023 Triiodothyronine (T3) LC 141 ng/dL Invalid Interpretation Code 71-180 [facility] Comment on above: Result Comment: Perf ormed At: [facility] [address] [id number] Yumiko Sheppard PhD Ph:[phone] Performed By: #### 1 [id number] ####[facility] (DEFAULT)[address] [place] [address] Free T4on 05-05-2023 Free T4 [Mass/Vol] 0.52 ng/dL Low 0.61-1.12 [facility] Comment on above: Performed By: #### 1 [id number] ####[facility] (DEFAULT)[address] [place] [address] Provider Orderson 05-05-2023 Provider Orders [id number] IFF Normal [facility] TSHon 05-05-2023 TSH Qn 0.06 m[IU]/L Low 0.45-5.33 [facility] Comment on above: Performed By: #### 1 [id number], [id number] ####[facility] (DEFAULT)[address] [place] [address] Coding Summaryon 04-17-2023 Coding Summary HTMLBase 64 PtksyubmODl2sEn+PGhlYWQ+P J0FGNVlI75xdJPkiW8iE2SLBN lOSywgQVBQTElOSyIgbmFtZT1 kaXNjZXJu IC8+SJ2aQFKeMjupyVZqg1C8v SU6G91bwn9iXYmltVZ7TIVcVv Vluemgn9mriFo4IGllEoqnGzI t RNFalM40ZRO8iH37Dc88bEEap IHmv6hijXw6IyTeVSOqNKI3cP tvCIphs2RrGVFmY22vmWZpo7W 6 SCMxoMzgdGNdHyEoyQV3vN2dZ Rczlnafn6iejjclDqz3ab02mD Ldx5I3cPN1Z9VokeK8PFJszXP g BhsmnMSTaY7npnwvl6hneutiE qXeNJPuDPi2TKm9TKFddYshRu HrQU45ODG0OVCmhnPzZ7HcHZG s pBjtUiB3d3R6Tv5DB1JNXefoL 1VNTUFSWTwvdGQ+UE68hm13S0 YoVqwfMve3VSGnSST2fXT5wA7 n MPUrAPlky9O3jKN4J6WkeiGxx z6xy7qiGRZoKCezT11gdYMdr3 I2NJJwyKM9HPHtuYviHiXffY1 3 Oyc+OTVieLhrt7NrRazsb8cue 8cttXp8IivaRATqgoJaaUydHB A7r8IwBv2vVQEjdSC7fHA2kQ6 i KpXbRaJ7NLriV805VjCfuQVjD lyaQ44iZ1BnoEQ+UFTsQmt3MQ NlyYgbEL9oE9QdWYIhgtdytLK m gKvhMU3qMBHsahtvUIFoqE3iZ SWvS4s3BhBtVrL3VKvmI9KgCC CymcppYx51lZ0fUzAzFnK6UTx u J5AruzB1AWPznNIsNBinDTU4G 92yu5G5FFJuMDLnOCK6yPW3qP 1hbGlnbjogbGVmdDsgdmVydGl j JEagNCjnM759POHltVyvBuDxL GluZyBEYXRlOiAgMDcvMjgvMj AyMzwvdGQ+EOXcWSN4gYhwRKN n wFFsYAqoGg6pzMhcmRejNT3qR RPgarnuAUUsjY8mJVQuqQDwuW knTS1kNESdfvvtj273MdXaXMR 0 BTUahWAiI2YpyO1mHmHnKTQgH AOdI7GvlCEyCSaoE987TOwrHj G2TAMkefCjZ7MlXXDbcNdeHyG 0 k0I6Pz2Vm4SpvzwoD9NoyGGkP lXdEejmZZv5R1JbAfnzoYJ+PC 81IFFvHG78EIu4SMW9lKrgYZg i GHZrU6KnfC1nAfOhMMOmIQKrC yc+PHRhYmxlIHdpZHRoPScxMD AoZwGweJosGJ3qVn1rCHTmUXV v yUccsIKqLaVfa7adZEXfXObkI S0hwJcqV2LddRH2ZDPxd4u0Rv 55Z32nZ2GonPH+JBSucTB5wDK 0 nE3wNfVpDtF9XQopH241KdFrn GYcZmdun7buf0lkwYm5QbB2NJ ZotcBqbJnjRVN5y9MiYf96C58 s IHdpZHRoPSIxNSUiIHZhbGlnb i4cqL9fLj9+ZYWwaVK7sCX6cI 5nKuZjXdV0OHryS012BwYgkHQ v Dfyil5nne6nrpCr8SbQqIHNli vNpdAduIDU7l0KxVk25T4CalR lcc1TfJdg7ag71xUIio2U3vPY 9 Q9IuOBNalwydhSNuuGgyML0cS TUpalpuHJPviX4cENSmO1c2Dh XdFmA6EXesE1SqgcV1ARPsvUV g DDRkaKDFrU1djdbdv8leroppA xGjGDQcVLx4YOe1RTYjtHwjSs BmMFI4GeS9RXI5sKPujT6idHi n hgoefF8aOog+EQU6vEFlvTTTG N9iQhhviCR+HDQoATR7tOpuJT slGZIivA4vZUTpN7n5YnPxBjM 1 TEuzV1OsbhH8XTWqzVXbSMNpp JPAfU9aaiihm0uimyxuKaTeUM DoKUr8XBy0VGJjlQnpXvPxUXK 0 HoQ6JNM0nHPakI8koNxtqvbjf G9wOyc+OammkUcpHEW1IAa9D2 CmAsz4DSVkzUgsLS5qeNTjFIk u Bq0hwExaiDduXX7nQSWmjbhvw 434AhHfl9xyKMExeMLgDJhiZV U0H19tp6T9VSXsGOLwQHQ9uXZ 4 pX0ahLwzkuxgiZMiiCdlvgHkn UumONotHDvaZ343SDVguGbnDk QcVKz7X6ImXrc7HYGnfOfpUN9 n xQNpAVfhNq3xxYxqlUyqXA0lA KPfvwsih563ZhElw6yqFWAdpF QbYWvmYGQ1W98ld6S1XGKvMYE w ECV4rJM3jB0mwKxnrhnzkXZlx VqiygEbsQffXCjsUFqdH200YF TiwLrjYwOinFl8L1ClYec9RBB z gWfaQZ3iaFVbFFrdYm0beGept YorCX1rBIEwtapja426OwMqp5 fsVXPzcDFnZIoyNFO2R33wt2U 6 RBTaNCSvZGV7nSM6vI7drOily jogbGVmdDsgdmVydGljYWwtYW epF359JUCglPmjEwXxrWrkfmH g XEoyZXh5Y8AxNjtbvND+PC90Y HViFJ62uAVpuSUld0tbaOo9Ny XdASMfJFS0lXpoZUues3FhGLK t T43aqHGfp8G5FWHdyQggfDNmN aFvxCI8cU8pIGskfbgsi2fkvn biRwaei9koxy66qN36G90gFWe p XKAmLSRlTNQyLUFutNqnik0rh G9wIi8+QYJroLV0iBX8tC3eAP NaQhM6HDvjO749VgJtpTRaFva j b3twb9rmoGq6PfD9NOPzwzBap XgdDLG1m4UbEp23K52cLUpfJT YqBTTaBGRpDNZbgJjbqw2exQ3 w Ii8+IPCgzRH6kEQ8yM5qEdNqY mS9MIxdS489OdElrFEqJwvlV7 7fV3JuaMV+XSJtBvj9OZGzwFv s CU1ucDNvGHpeCl2uVOU5RxPzB vGyPSwfE8DwPIKeqaoqamzwvD H4FUSuBMWbcT86Sg1xtGmhPTB w jTVDkT7lptkgv5lxfpplBhKaF OKyCHh8PQe7GOWvhMnpBtAmMR S9CxP2BNA8uTUcmS1lgJylgml g uB4qC7EgYSYidsbwCt89rY0yK nNtUzI3MNqyQyw+WtOKVv7gNp OVBODpCCtAS0fJHmHRXX50KC7 8 zUQld9V8xEI1R4LuEFQplsczy tuybBI5CPCqPHGcyR15yDRyMP lfRa4dl0C7e105XAEhOPMehR1 7 Jn0muKxrXYAtnSXNyL1ynujyr 8oedpvtWwZtFJPuTGv9VKk7VI CmlRrqMbJmHHB2HnY3BLT0lAE h aX7oqReneyqojY8iWbc+MTAvM EQyQPn6MiktkAK+HKRgCLN4eT eaBCbmIDLqwQ7dKIHbJ5q2FzP w RrS2KCdxY8BnMRMhyrquFm00n M3lAsMkIdC4ZYlbG6JlxzH4MZ SagGNgJDcvZTM7F08ei3R0IZY w NSXlZOA8iPO8jM5pyTqcyffdi GVmdDsgdmVydGljYWwtYWxpZ2 84LKYhiMegHbW1MQmvAZJlAH5 0 RA73cSRni5Q8eAG5A2HwAPXvc azlrnehlOC7CGXpTBUxkV81yD JqZGkhBo9ti7B9p091KCTpUSW w lW94Sh7ndRxrPNYdtPYCxT2rq lfhu2gyicddPgHzQKJeIRz4TJ r6MPPdyDelBsGeBBF1KiT3QDE 0 hPFqjE8nvUeljocviK9dKtz+R dAWJIyWNG53FW75tDZpi7H2fE V4X5DuMASsooidnqpgzSO4QFF u PUDgyG17sMJzTNcoUl1ku6E8s 904HEOgSJSivX47Xq8jxReoSD EjeVVRcL2vvifin5rbyfghCqR w GPOmLWg8HNy7SESnvLnmNhTuC OW7GdT3UNF8jMOecD3poCqyxd zzzX5aOae+S6G8O3DaSqsjvFZ + CC77DRLtQY43dLDbjIXfu9ssn Hg4WgTvMRPsCVU3eRaqICewy7 QhQDMvR03cvTLpl5Z6GWDdxJf h eQIdKpNnmFI4gX3nBApgeefet 3iuncicGfsrb6nghu26kL84E5 9sIHdpZHRoPSIzMCUiIHZhbGl n cg6iwQ4bCv1+YALnvWR5tAV5n Y3lEsEcKvN0UYloZ692IkQukE AmRajtd6yhi1dvwAg4DdKiZWE g dnJetHkaHGU4f3TdNk89D94mM HdpZHRoPSIyMCUiIHZhbGlnbj 5nzK7gUm6+KD9hr5xpxo07jN1 8 dHI+LGZoQRG0zDziUEtoXNFic R1vNMoiExM8HKUhVyYiyT14eW RkXYqgSs2cnPrhvQbqHK4nSRV p urzwq711TiMdu1rlOKKqpJKnE KuzSBB1C07oj9Q8YCUtTFFlUZ E5jCO4oZ9bsDwnusgxzSJlwJx g zrQocOlsYYkcGQlqG665YKFcs BepPlRlyEZcJ4uywgYFEH5eOn wvdGQ+MPQtQTX6rSztZIeoTNS k wF6lFKQkD2h2DtPaDnB5VAicS 7AcrdP0JOVoiHVyDHSbdNYZqM 5nmmxro3gmhgsoKzDxPYGcVUo 0 GKk3JJYoeRxlHgItNGB5BeT4K OG7pGFaeG0paVyarelabE3uAf c+RklOOjwvdGQ+HSWyGIS7gKw l WJkqGSOrdF1aGGIlK6k2YbHhR eE2YPynM0ImhfG9UDLquBIeJO UnwBBXoP8orzohl4blxmfbMpM w UEHoESq6UQq6FZJlsTvbQiVhX GM6NdV6GOB4rJGuxX6wkVbbec xkjA1uBlv+TVJOOjwvdGQ+PHR k RXP9mRkeAIfzVSMpvK3dFLNiS 9k6TvCiPsT5BKrwM0KznvW1AN PhvXAtYYGdgFMLkK1xnpxby1q v sclhVnNmRANkSGw8SHh6ERRrw TrtHoDhNPO6VoR5WHS0lCHmpR 5owGjdpnbyuL5wOef+DBD3ZGU 6 NY90VP71J9AzOxevwHRhpXV+P HRhYmxlIHdpZHRoPScxMDAlJy ToqPprFX6sXi2aJALrQXOppKq h cHN (more content not included)... Normal [facility] T3 Free LCon 04-15-2023 Triiodothyronine,Fr ee,Serum LC 4.4 pg/mL Invalid Interpretation Code 2.0-4.4 [facility] Comment on above: Result Comment: Perf ormed At: [facility] [address] [place], [place] [id number] Yumiko Sheppard PhD Ph:[phone] Performed By: #### 6 [id number] ####[facility] (DEFAULT)[address] [place] [address] Free T4on 04-14-2023 Free T4 [Mass/Vol] 0.65 ng/dL Normal 0.61-1.12 [facility] Comment on above: Performed By: #### 6 [id number] #### [facility] (DEFAULT) [address] [place] [address] Provider Orderson 04-14-2023 Provider Orders [id number] Normal [facility] TSHon 04-14-2023 TSH Qn 0.02 m[IU]/L Low 0.45-5.33 [facility] Comment on above: Performed By: #### 6 [id number] #### [facility] (DEFAULT) [address] [place] [address] [place] Thyroidon 01-26-2023 US Thyroid HISTORY: History [...] thyroid nodules on ultrasound proposed by the [employer] (ACR) Report reported and signed by Kin Graves on 01/26/2023 1140 Normal [facility] Specialist SCREENING MAMMOGRAM W/MONSERRAT, BILATERAL*on 10-06-2022 SCREENING MAMMOGRAM [...] IS VERY IMPORTANT TO YOUR HEALTH. CURRENT [employer] GUIDELINES RECOMMENDS ANNUAL MAMMOGRAPHY BEGINNING AT AGE 42. THIS FACILITY USUALLY USES A REMINDER SYSTEM TO ENSURE ALL POSITIONS RECEIVED REMINDER NOTIFICATIONS AT THE TIME BASED ON THE RECOMMENDATIONS OF THIS EXAM. Report reported and signed by Hannah Yap on 10/08/2022 1159 Normal [facility] HCG ( test) IA.josei d Ql (U)Ordered By: Kwame Noel on 08-18-2022 HCG ( test) Ql (U) Negative [facility] VC CONSULT FOLLOWUPon 2020 VC CONSULT FOLLOWUP Patient: CESAR DE LA TORRE Exam Date: 09/18/2021 : 1975 Gender:F Ordering : DR BECKY TORRES M.D. Admission #: [id number] Family : Order #: [id number] CLICK HERE TO VIEW EXAM RADIOLOGY REPORT [...] Torres MD on 09/18/2021 at 14:06 Normal [facility] VC EXT VENOUS LT LIMITEDon 1 VC EXT VENOUS LT LIMITED Patient: EB DE LA TORRE Exam Date: 09/18/2021 : 1975 Gender:F Ordering : DR BECKY TORRES M.D. Admission #: [id number] Family : Order #: [id number] CLICK HERE TO VIEW EXAM RADIOLOGY REPORT [...] Torres MD on 09/18/2021 at 14:04 Normal [facility] VC CONSULT FOLLOWUPon 2020 VC CONSULT FOLLOWUP Patient: CESAR DE LA TORRE Exam Date: 09/10/2021 : 1975 Gender:F Ordering : DR BECKY TORRES M.D. Admission #: [id number] Family : Order #: [id number] CLICK HERE TO VIEW EXAM RADIOLOGY REPORT [...] Dick M.D. on 09/10/2021 at 12:18 Normal [facility] VC EXT VENOUS HALEY LIMITEDon 09-10-2021 VC EXT VENOUS HALEY LIMITED Patient: EB DE LA TORRE Exam Date: 09/10/2021 : 1975 Gender:F Ordering : DR BECKY TORRES M.D. Admission #: [id number] Family : Order #: [id number] CLICK HERE TO VIEW EXAM RADIOLOGY REPORT [...] Dick M.D. on 09/10/2021 at 12:15 Normal [facility] VC INJ FOAM SCLERO W US MLTI on 09-02-2021 VC INJ FOAM SCLERO W US MLTI Patient: EB DE LA TORRE Exam Date: 09/02/2021 : 1975 Gender:F Ordering : DR BECKY TORRES M.D. Admission #: [id number] Family : Order #: [id number] CLICK HERE TO VIEW EXAM RADIOLOGY REPORT [...] content not included)... Normal [facility] VC INJ SCL KARLY AGING BOX HAND VEINSon 10-20-2020 VC INJ SCL KARLY AGING BOX HAND VEINS Patient: EB DE LA TORRE Exam Date: 08/20/2021 : 1975 Gender:F Ordering : DR BECKY TORRES M.D. Admission #: [id number] Family : Order #: [id number] CLICK HERE TO VIEW EXAM RADIOLOGY REPORT PROCEDURE: VEIN CENTER INJECTION SCLEROSING SOLUTION MULTIPLE VEINS SAME COMPARISON: VC INJ SCL KARLY AGING BOX HAND VEINS, 08/13/2021. INDICATIONS: Pain co-occurrent and due [...] Dick M.D. on 08/20/2021 at 16:11 Normal [facility] VC INJ SCL KARLY AGING BOX HAND VEINSon 10-13-2020 VC INJ SCL KARLY AGING BOX HAND VEINS Patient: EB DE LA TORRE Exam Date: 08/13/2021 : 1975 Gender:F Ordering : DR BECKY TORRES M.D. Admission #: [id number] Family : Order #: [id number] CLICK HERE TO VIEW EXAM RADIOLOGY REPORT [...] ablation should be performed. Dictated by: Hannah iDck M.D. on 08/13/2021 at 12:57 Approved by: Hannah Dick M.D. on 08/13/2021 at 13:00 Normal [facility] VC CONSULT FOLLOWUPon 2020 VC CONSULT FOLLOWUP Patient: CESAR DE LA TORRE Exam Date: 08/09/2021 : 1975 Gender:F Ordering : DR BECKY TORRES M.D. Admission #: [id number] Family : Order #: [id number] CLICK HERE TO VIEW EXAM RADIOLOGY REPORT [...] Torres MD on 08/09/2021 at 13:10 Normal [facility] VC EXT VENOUS HALEY LIMITEDon 08-09-2021 VC EXT VENOUS HALEY LIMITED Patient: EB DE LA TORRE Exam Date: 08/09/2021 : 1975 Gender:F Ordering : DR BECKY TORRES M.D. Admission #: [id number] Family : Order #: [id number] CLICK HERE TO VIEW EXAM RADIOLOGY REPORT [...] of reflux. *Exam performed in accordance with [employer] practice guidelines- Peripheral venous ultrasound, December 15, 2009. 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 Admission #: [id number] Family : Order #: [id number] CLICK HERE TO VIEW EXAM RADIOLOGY REPORT [...] Dick M.D. on 08/02/2021 at 15:59 Normal [facility] VC CONSULT FOLLOWUPon 2020 VC CONSULT FOLLOWUP Patient: CESAR DE LA TORRE Exam Date: 07/12/2021 : 1975 Gender:F Ordering : DR HANNAH DICK M.D. Admission #: [id number] Family : Order #: [id number] CLICK HERE TO VIEW EXAM RADIOLOGY REPORT [...] Dick M.D. on 07/12/2021 at 16:05 Normal [facility] VC EXT VENOUS LT LIMITEDon 1 VC EXT VENOUS LT LIMITED Patient: EB DE LA TORRE Exam Date: 07/12/2021 : 1975 Gender:F Ordering : DR HANNAH DICK M.D. Admission #: [id number] Family : DR BECKY TORRES M.D. Order #: [id number] CLICK HERE TO VIEW EXAM RADIOLOGY REPORT [...] Dick M.D. on 07/12/2021 at 16:02 Normal [facility] VC INJ FOAM SCLERO W US MLTI on 07-05-2021 VC INJ FOAM SCLERO W US MLTI Patient: EB DE LA TORRE Exam Date: 07/05/2021 : 1975 Gender:F Ordering : DR BECKY TORRES M.D. Admission #: [id number] Family : Order #: [id number] CLICK HERE TO VIEW EXAM RADIOLOGY REPORT [...] Dick M.D. on 07/05/2021 at 16:49 Normal [facility] VC CONSULT FOLLOWUPon 2020 VC CONSULT FOLLOWUP Patient: CESAR DE LA TORRE Exam Date: 06/18/2021 : 1975 Gender:F Ordering : DR BECKY TORRES M.D. Admission #: [id number] Family : Order #: [id number] CLICK HERE [...] Torres MD on 06/18/2021 at 14:47 Normal [facility] VC EXT VENOUS LT LIMITEDon 0 06-18-2021 VC EXT VENOUS LT LIMITED Patient: EB DE LA TORRE Exam Date: 06/18/2021 : 1975 Gender:F Ordering : DR BECKY TORRES M.D. Admission #: [id number] Family : Order #: [id number] CLICK HERE TO VIEW EXAM RADIOLOGY REPORT [...] Torres MD on 06/18/2021 at 14:28 Normal [facility] VC ENDOVENOUS ABL 1ST V LTon 06-03-2021 VC ENDOVENOUS ABL 1ST V LT Patient: EB DE LA TORRE Exam Date: 06/03/2021 : 1975 Gender:F Ordering : DR BECKY TORRES M.D. Admission #: [id number] Family : Order #: [id number] CLICK HERE TO VIEW EXAM RADIOLOGY REPORT [...] of the foot pedal and a single delivery/certified maintenance welder was created. The total number of [...] Dick M.D. on 06/03/2021 at 11:54 Normal [facility] VC COMP CONSULTATIONon 05-06 VC COMP CONSULTATION Patient: EB DE LA TORRE Exam Date: 05/06/2021 : 1975 Gender:F Ordering : DR BECKY TORRES M.D. Admission #: [id number] Family : Order #: [id number] CLICK HERE TO VIEW EXAM RADIOLOGY REPORT [...] arterial disease 5. CEAP: C2, EC, , OK PLAN: 1. Continued use of compression stockings [...] Dick M.D. on 05/06/2021 at 09:47 Normal [facility] VC VENOUS REFLUX HALEY LMTon 0 05-06-2021 VC VENOUS REFLUX HALEY LMT Patient: EB DE LA TORRE Exam Date: 05/06/2021 : 1975 Gender:F Ordering : DR BECKY TORRES M.D. Admission #: [id number] Family : Order #: [id number] CLICK HERE TO VIEW EXAM RADIOLOGY REPORT [...] echogenic thrombus seen Compressibility: Normal Flow: Normal Inside Wireman: None visualized Tech Note: The left SFJ/AASV [...] Hannah Dick M.D. on 05/06/2021 at 09:11 [facility] Coding Summaryon 07-28-2019 Coding Summary CODING DATE: 019 [facility] STATUS: Home PAYOR: Commercial Insurance ADMIT [...] Romina Courtney Date Saved: 07/28/2019 03:17 pm [facility] Provider [place] 07-27-2019 Provider Orders [id number] FF [facility] Release of Informationon Release of Information [id number]#1.00OTGTI FF [facility] T3 Free LCon 07-27-2019 Triiodothyronine,Fr ee,Serum LC 2.4 pg/mL 2.0-4.4 [facility] Comment on above: Result Comment: Perf ormed At: [facility] [address] [id number] Yumiko Sheppard PhD Ph:[phone] Performed By: #### 2 [id number] ####[facility] (DEFAULT)[address] [place] [address] Free T4on 07-26-2019 Free T4 [Mass/Vol] 0.86 ng/dL Normal 0.61-1.12 [facility] Comment on above: Result Comment: Spec imens that contain high levels of Biotin may cause false high results Performed By: #### 2 [id number], [id number] ####[facility] (DEFAULT)[address] [place] [address] TSHon 07-26-2019 TSH Qn 2.03 mcIU/mL Normal 0.45-5.33 [facility] Comment on above: Result Comment: Gene ral Population (males and non- females, aged 21-88) 0.45 - 5.33 Females, 1st Trimester 0.05 - 3.70 Females, 2nd Trimester 0.31 - 4.35 Females, 3rd Trimester 0.41 - 5.18 Performed By: #### 2 [id number], [id number] ####[facility] (DEFAULT)[address] [place] [id number] Provider [place] 01-12-2019 Provider Orders [id number]#1.00OTGTIF F [facility] Provider [place] 01-06-2019 Provider Orders [id number]#1.00OTGTIF F [facility] Coding Summaryon 01-05-2019 Coding Summary CODING DATE: 019 [facility] STATUS: Home PAYOR: Commercial Insurance APC [...] Palomino Date Saved: 01/05/2019 09:39 am Normal [facility] T3 Free LCon 01-05-2019 Triiodothyronine,Fr ee,Serum LC 3.0 pg/mL 2.0-4.4 [facility] Comment on above: Result Comment: Perf ormed At: [facility] [address] [id number] Yumiko Sheppard PhD Ph:[phone] Performed By: #### 4 [id number], [id number] #### [facility] (DEFAULT) [address] [place] [address] Free T4on 01-04-2019 Free T4 [Mass/Vol] 0.83 ng/dL Normal 0.61-1.12 [facility] Comment on above: Result Comment: Spec imens that contain high levels of Biotin may cause false high results Performed By: #### 4 [id number], [id number] #### [facility] (DEFAULT) [address] [place] [address] TSHon 01-04-2019 TSH Qn 2.15 mcIU/mL Normal 0.45-5.33 [facility] Comment on above: Result Comment: Gene ral Population (males and non- females, aged 21-88) 0.45 - 5.33 Females, 1st Trimester 0.05 - 3.70 Females, 2nd Trimester 0.31 - 4.35 Females, 3rd Trimester 0.41 - 5.18 Performed By: #### 4 [id number], [id number] #### [facility] (DEFAULT) [address] [place] [address] [place] Thyroidon 01-04-2019 [place] Thyroid EXAM: US [...] MD 01/04/19 3:38 pm Technologist: Jalyn ELY [facility] Vit D25 OHon 01-04-2019 Vitamin D 25 OH 26 ng/mL [facility] Comment on above: Result Comment: In [...] J Clin Endocrinol Metab 2011; 96 (7): 0631-6740. Performed By: #### 4 [id number], [id number] #### [facility] (DEFAULT) [address] [place] [address]69 Coding Summaryon 12-09-2018 Coding Summary CODING DATE: 019 [facility] STATUS: Home PAYOR: Commercial Insurance ADMIT [...] Wendy Palomino Date Saved: 12/09/2018 01:01 pm [facility] Provider Orderson 12-08-2018 Provider Orders [id number] F [facility] T3 Free LCon 12-08-2018 Triiodothyronine,Fr ee,Serum LC 2.5 pg/mL 2.0-4.4 [facility] Comment on above: Result Comment: Perf ormed At: [facility] [address] [id number] Yumiko Sheppard PhD Ph:[phone] Performed By: #### 2 [id number], [id number], [id number] #### [facility] (DEFAULT) [address] [place] [address] 07869 Free T4on 12-07-2018 Free T4 [Mass/Vol] 0.84 ng/dL Normal 0.61-1.12 [facility] Comment on above: Result Comment: Spec imens that contain high levels of Biotin may cause false high results Performed By: #### 2 [id number], [id number], [id number] #### [facility] (DEFAULT) [address] [place] [address] 48517 TSHon 12-07-2018 TSH Qn 2.68 mcIU/mL Normal 0.45-5.33 [facility] Comment on above: Result Comment: Gene ral Population (males and non- females, aged 21-88) 0.45 - 5.33 Females, 1st Trimester 0.05 - 3.70 Females, 2nd Trimester 0.31 - 4.35 Females, 3rd Trimester 0.41 - 5.18 Performed By: #### 2 [id number], [id number], [id number] #### [facility] (DEFAULT) [address] [place] [address]90 Coding Summaryon 08-13-2018 Coding Summary CODING DATE: 018 [facility] STATUS: Home PAYOR: Commercial Insurance ADMIT [...] Palomino Date Saved: 08/13/2018 08:53 am Normal [facility] C Throaton 08-09-2018 C Throat Ordered by Discern. Normal throat gene isolated No pathogens isolated Normal [facility] Comment on above: Performed By: #### 4 [id number], [id number] #### [facility] (DEFAULT) [address] [place] [address] ED Clinical Summaryon 2017 ED Clinical Summary [facility] ? Urgent Care [address] [place] [address] Clinical Summary PERSON INFORMATION Name: EB WILCOX Age: 43 Years Sex: FEMALE : [birth year] MRN: Acct#: Visit Reason: UC - Sore Throat; C/O WHITE SPOT IN THROAT Arrival: 08/07/18 14:50:00 Discharge: 08/07/18 15:27:00 LOS: 000 00:37 Check In: 08/07/18 14:50:00 Checkout: 08/07/18 15:27:00 Address: [address] [place] [address] PCP: Provider, None PROVIDER INFORMATION Provider Role Assigned Unassigned Juan Miguel Heard ED PA 08/07/18 14:55:17 Spike Branch RN ED Nurse [...] Patient/family/caregiver verbalizes understanding of instructions given Comment: [facility] ED Note - Physicianon 2017 ED [...] treatment plan. Impression and Plan Diagnosis Tonsillolith (NDT91-GP J35.8, Discharge, Medical) Plan Patient was given [...] 08/07/2018 17:00 EST] Juan Miguel Heard Normal [facility] ED Patient Summaryon 018 ED Patient Summary [facility] ? Urgent Care [address] [place] [address] PATIENT DISCHARGE INSTRUCTIONS Patient Information Name: EB [...] 10/15/2005 Document Revised: 05/13/2017 Document Reviewed: 12/14/2014 Elsevier Interactive Patient Education ? 2017 [employer] Medication Information: The exam and treatment you received today in the [facility] Emergency Department were for an urgent problem and are not intended as complete care. It is important for you to follow up with a doctor, nurse practitioner, or physician?s client services assistant for ongoing care. If your symptoms [...] so we can reach you if necessary. [facility] Emergency Department has provided you with a complete list of medications post discharge. Please inform your material preparation worker/provider of your visit and for further instruction on these medications. Any specific questions regarding your chronic medications and dosages should be discussed with your primary care physician(s) and/or pharmacist. New Medications Other Medications thyroid desiccated ([place] Thyroid 60 mg oral tablet) 1 tab(s) Oral every day. Visit Information Visit Diagnosis: Diagnoses This Visit Tonsillolith (J35.8) UC - Sore Throat ([id number]) If you received any narcotics, sedation, or [...] Stop date 08/07/18 15:02:00 EST, Nurse collect, [id number] Radiology Cardiology Viruses or Bacteria What?s got [...] for Disease Control and Prevention May 2014 [facility] Strep Aon 08-07-2018 Strep A Negative Normal Negative [facility] Comment on above: Performed By: #### 4 [id number], [id number] #### [facility] (DEFAULT) [address] [place] [address] Strep procedure control Pass [facility] Comment on above: Performed By: #### 4 [id number], [id number] #### [facility] (DEFAULT) [address] [place] [address]167 Urgent Care [place] 018 Urgent Care Record [facility] ? Urgent Care [address] [place] [address] PATIENT DISCHARGE INSTRUCTIONS Patient Information Name: EB WILCOX Age: 43 Years Date of : [birth year] Reason For Visit: UC - Sore Throat; C/O WHITE SPOT IN THROAT Arrival Time: 08/07/18 14:50:00 Primary Care Physician: Provider, None Attending Physician: Juan Miguel Heard Comment: Visit Diagnosis: Diagnoses This Visit Tonsillolith (J35.8) UC - Sore Throat ([id number]) If you received any narcotics, sedation, or [...] and treatment you received today in the [facility] were for an urgent problem and are not intended as complete care. It is important for you to follow up with a doctor, nurse practitioner, or physician?s client services assistant for ongoing care. If your symptoms [...] so we can reach you if necessary. [facility] has provided you with a complete list of medications post discharge. Please inform your material preparation worker/provider of your visit and for further instruction on these medications. Any specific questions regarding your chronic medications and dosages should be discussed with your primary care physician(s) and/or pharmacist. New Medications Other Medications thyroid desiccated ([place] Thyroid 60 mg oral tablet) 1 tab(s) [...] 10/15/2005 Document Revised: 05/13/2017 Document Reviewed: 12/14/2014 Tongal Interactive Patient Education ? 2017 [employer]. Viruses or Bacteria What?s got you sick? [...] for Disease Control and Prevention May 2014 [facility] CNCO Letter TextToll Free : [phone].[facility]/cancer [facility] - [address] [place], [place] [address]Klywz: [phone]: [facility] [place], [place] [address]Atvay: [phone]: [facility] - [address]sw[address] [place], [place] [address]Jllwm: [phone]: Cornelius Palomino M.D., Roni Cardenas M.D.Abdulaziz Mendoza M.D.Slava Carrillo D.O..Gustavo Gottlieb M.D.Jennifer Mcdonald M.D. Kaur Castrejon M.D..04/15/2017Joealecia [facility] [id number] [facility] [address]Pr Bhavik GonzalezBE[facility] OB/GYNDear Eb Boone's lupus anticoagulant panel was negative. She has no evidence of theantiphospholipid antibody syndrome/lupus anticoagulant. I have given thepatient reassurance with the lab results. Thanks Dr Gonzalez, and kindestregards,Sincerely, Maeve Cardenas MD(signed electronically to expedite mailing) Normal [facility] APTTon 04-13-2017 aPTT 29.7 s Normal 23.0-32.4 [facility] Comment on above: Result Comment: The [...] reagent. Performed By: #### P T, PTT ####[facility] [place], [place] [phone] + CBCon 04-13-20 17 Absol Gran Count 4.44 k/uL Normal 1.45-7.50 [facility] Comment on above: Performed By: #### P T, PTT ####[place] [address] [place], [place] [phone] Erythrocyte distribution width Auto Ratio (RBC) 12.5 % Normal 11.5-15.0 [facility] Comment on above: Performed By: #### P T, PTT ####[place] [address] [place] [place] [phone] Erythrocytes (RBC) 4.05 10*6/uL Normal 3.90-5.20 [facility] Comment on above: Performed By: #### P T, PTT ####[place] [phone] Hematocrit (HCT) 38.2 % Normal 36.0-46.0 [facility] Comment on above: Performed By: #### P T, PTT ####[address] [place] [phone] Hemoglobin mass conc (Bld) 13.2 g/dL Normal 11.5-15.5 [facility] Comment on above: Performed By: #### P T, PTT ####[address] [place] [phone] MCH 32.6 pG Normal 26.0-34.0 [facility] Comment on above: Performed By: #### P T, PTT ####[place] [phone] MCHC mass conc (RBC) 34.6 g/dL Normal 30.5-36.0 [facility] Comment on above: Performed By: #### P T, PTT ####[address] [place] [phone] MCV 94.3 fL Normal 80.0-100.0 [facility] Comment on above: Performed By: #### P T, PTT ####[address] [place] [phone] Platelet mean volume (PMV) 10.0 fL Normal 9.0-12.7 [facility] Comment on above: Performed By: #### P T, PTT ####[address], [place] [phone] Platelets 252 10*3/uL Normal 150-400 [facility] Comment on above: Performed By: #### P T, PTT ####[facility] [address] [place], [place] [phone] WBC (Leukocytes) 6.97 10*3/uL Normal 3.70-11.00 [facility] Comment on above: Performed By: #### P T, PTT ####[facility] [place], [place] [phone] CNOVSPon 04-13-2017 CNOVSP Visit (SP) Office (HEMASA) EB DE LA TORRE ([id number]) 1975 [facility] Time Provider Department04/13/17 4:00 PM MAEVE CARDENAS During your visit today, we recorded the following information about you: Temperature Pulse Respiration Blood pressure 97.2 degrees 68/minute 18/minute 123/81 Weight Height 76.6 kg 1.683 London Cardenas MD 04/13/2017 4:34 PM ParulSam De La Torre is a 41 year [...] laboratory test PTTPAST SURGICAL HISTORYNo date: BREAST OAUTGB7412/09/2016: DANDamp;C, DIAG AND/OR THERAPEUTIC Comment: Dilation ANDamp; [...] 14.4 oz) LMP (LMP Unknown) BMI 27.06 kg/s5Sqovfxi Appearance: alert and oriented, appearing in no [...] CBC- PROTHROMBIN TIME/PT- ACTIVATED PTT- LUPUS ANTICOAG PLLaura Norton Provider: BHAVIK GONZALEZ [[id number]]Allergies As of Date: 04/13/2017(No Known Allergies)Date Reviewed: 04/13/2017Reviewed by: Bren Berry - Fully AssessedPrimary Visit Diagnosis:Less than 8 weeks gestation of [Z3A.01]Order(s):ABS GRAN CT + CBC [SQAGCCBC] Order #: [id number] FUTURE PROTHROMBIN TIME/PT [SQPT] Order #: [id number] FUTURE ACTIVATED PTT [SQPTT] Order #: [id number] FUTURE LUPUS ANTICOAG PL [SQLUPUSP] Order #: [id number] FUTUREPrescriptions as of 04/13/2017 Sig: + DHA ORAL Take by mouth. PROGESTERONE MISC ARMOUR THYROID 60 MG TABLET Take 60 mg by mouth once aliyah*Problem List As Of Date 04/13/2017 Noted Resolved Less than 8 weeks gestation of [Z3A.0*INVALID FOR*Encounter Status:Closed by MAEVE CARDENAS MD on 04/13/17 Normal [facility] Lupus Anticoag Panelon 04-13 aPTT 29.2 s Normal <33.5 [facility] Comment on above: Performed By: #### L UPUSP ####[address] [phone] aPTT 29.9 s Normal <37.3 [facility] Comment on above: Performed By: #### L UPUSP ####[address] [phone] aPTT 33.1 s Normal 24.4-33.4 [facility] Comment on above: Performed By: #### L UPUSP ####[address] [phone] aPTT 28.6 s Normal 23.0-32.4 [facility] Comment on above: Result Comment: The [...] APTT reagent. Performed By: #### L UPUSP ####[address] [phone] Beta2 Glycoprot IgG <9 Normal <20 [facility] Comment on above: Result Comment: < 20 SGU Ohrufspg33-89 SGU Low Positive> 80 SGU High PositiveThese results were obtained with the [employer] QUANTA Lite B2 GPI IgG MATTIE. B2 GPI IgG values obtained with different manufacturers' assay methods may not be used interchangeably. The magnitude of the reported IgG levels cannot be correlated to an endpoint titer. Performed By: #### L UPUSP ####[address] [phone] Beta2 Glycoprot IgM <9 Normal <20 [facility] Comment on above: Result Comment: < 20 SMU Zksjjcaw95-26 SMU Low Positive> 80 SMU High PositiveThese results were obtained with the [employer]gae International GroupA Lite B2 GPI IgM MATTIE. B2 GPI IgM values obtained with different manufacturers' assay methods may not be used interchangeably. The magnitude of the reported IgM levels cannot be correlated to an endpoint titer. Performed By: #### L UPUSP ####[place] [address] [place] [phone] DRVVT 1:1 Mix 37.4 sec Normal 32.7-46.7 [facility] Comment on above: Performed By: #### L UPUSP ####[address] [phone] DRVVT Confirm Ratio 1.07 Normal <1.21 [facility] Comment on above: Performed By: #### L UPUSP ####[place] [address] [address] [phone] DRVVT Screen 35.0 sec Normal 32.7-46.7 [facility] Comment on above: Performed By: #### L UPUSP ####[place] [address] [address], [place] [phone] Hex Phase Confirm 54.4 sec Normal 45.1-64.1 [facility] Comment on above: Performed By: #### L UPUSP ####[facility], [place] [phone] Hex Phase Delta 0.1 delta sec Normal <9.0 [facility] Comment on above: Performed By: #### L UPUSP ####[facility], [place] [phone] Hex Phase Screen 54.5 sec Normal 48.9-70.2 [facility] Comment on above: Performed By: #### L UPUSP ####[place] [address] [place], [place] [phone] IgA Cardiolipin Ab. <9 Normal 0-11 [facility] Comment on above: Result Comment: <12 APL Bjssspya22-00 APL Equivocal>40 APL PositiveThe following results were obtained with an [employer] QUANTA Lite NIKI IgA III MATTIE. Cardiolipin IgA values obtained with different manufacturers' assay methods may not be used interchangeably. The magnitude of the reported IgA levels cannot be correclated to an endpoint titer. Performed By: #### L UPUSP ####[address] [phone] IgG Cardiolipin Ab. <9 Normal 0-9 [facility] Comment on above: Result Comment: <10 GPL [id number] GPL Equivocal>40 GPL PositiveThe following results were obtained with the [employer] QUANTA Lite NIKI IgG III MATTIE. Cardiolipin IgG values obtained with the different manufacturers' assay methods may not be used interchangeably. The magnitude of the reported IgG levels cannot be correlated to an endpoint titer. Performed By: #### L UPUSP ####[address] [phone] IgM Cardiolipin Ab. <9 Normal 0-11 [facility] Comment on above: Result Comment: <12 MPL Tcxrdyab41-59 MPL Equivocal>40 MPL PositiveThe following results were obtained with the [employer] QUANTA Lite NIKI IgM III MATTIE. Cardiolipin IgM values obtained with different manufacturers' assay methods may not be used interchangeably. The magnitude of the reported IgM levels cannot be correlated to an endpoint titer. Performed By: #### L UPUSP ####[address] [phone] Interpretation (NOTE) Normal [facility] Comment on above: Result Comment: Perf ornemours foundation Pathologist: La Martinez M.D., Ph.D.Interpretation:Normal - see [...] direct thrombin inhibitors, or heparin). Thromb.Haemost. 74:1185 (1994). Performed By: #### L UPUSP ####[facility] [place], [place] [phone] PNP Negative Normal Negative [facility] Comment on above: Performed By: #### L UPUSP ####[facility] [place], [place] [phone] PT Sec 10.7 sec Normal 8.4-13.0 [facility] Comment on above: Performed By: #### L UPUSP ####[facility] [place], [place] [phone] Thrombin Time 15.5 sec Normal <18.6 [facility] Comment on above: Performed By: #### L UPUSP ####[facility] [place], [place] [phone] PROGRESSon 04-13-2017 PROGRESS HNO ID: [id number] thor: Maeve Olsen: (none)Author Type: PhysicianType: Progress [...] laboratory test PTTPAST SURGICAL HISTORYNo date: BREAST WCFLVE4112/09/2016: DANDC, DIAG AND/OR THERAPEUTIC Comment: Dilation AND [...] lb 14.4 oz) LMP (LMPUnknown) BMI 27.06 kg/y8Nnmpiwk Appearance: alert and oriented, appearing in no [...] LUPUS ANTICOAG Konstantin Cardenas MD Normal [facility] Protimeon 04-13-2017 INR Coag RelTime (Bld) 1.0 {INR} Normal 0.8-1.2 [facility] Comment on above: Result Comment: The [...] to 3.5 for older generation mechanical heart valves.Kj et al. CHEST 2004: 126:204S to 233S. Performed By: #### P T, PTT ####[facility] [place], [place] [phone] Performed By: #### L UPUSP ####[facility] [place], [place] [phone] PT Sec 10.9 sec Normal 8.4-13.0 [facility] Comment on above: Performed By: #### P T, PTT ####[address] [phone] Vital Signs Date Time Vital Sign Value Performing Clinician Facility 11-02-2023 14:47-0500 Body mass index (BMI) [Ratio] 28.02 kg/m2 Amanda Bradshawi DO Work Phone: [facility] 11-02-2023 14:47-0500 Body weight 76.39 kg Amanda Visci DO Work Phone: [facility] 11-02-2023 14:47-0500 Diastolic blood pressure 62 mm[Hg] Amanda Visci DO Work Phone: [facility] 11-02-2023 14:47-0500 Systolic blood pressure 118 mm[Hg] Amanda Visci DO Work Phone: [facility] 08-31-2023 12:17-0500 Diastolic blood pressure 60 mm[Hg] MD Mic Bowen Work Phone: [facility] 08-31-2023 12:17-0500 Heart rate 60 /min MD Mic Bowen Work Phone: [facility] 08-31-2023 12:17-0500 Respiratory rate 14 /min MD Mic Bowen Work Phone: [facility] 08-31-2023 12:17-0500 SaO2% (BldA) [Mass fraction] 99 % MD Mic Bowen Work Phone: [facility] 08-31-2023 12:17-0500 Systolic blood pressure 95 mm[Hg] MD Mic Bowen Work Phone: [facility] 08-31-2023 10:20-0500 Body height 165.1 cm MD Mic Bowen Work Phone: [facility] 08-31-2023 10:20-0500 Body weight 73.93 kg MD Mic Bowen Work Phone: [facility] 07-21-2023 13:00-0400 Body height 165.1 cm Imad Asaad Other [employer] Other 07-21-2023 13:00-0400 Body mass index (BMI) [Ratio] 26.62 kg/m2 Imad Asaad Other [employer] Other 07-21-2023 13:00-0400 Body weight 72.58 kg Imad Asaad Other [employer] Other 07-21-2023 13:00-0400 Diastolic blood pressure 79 mm[Hg] Imad Asaad Other [employer] Other 07-21-2023 13:00-0400 Systolic blood pressure 124 mm[Hg] Imad Asaad Other [employer] Other 05-13-2023 16:00-0400 Body height 165.1 cm Cooper [place] Other [employer] Other 05-13-2023 16:00-0400 Body mass index (BMI) [Ratio] 26.29 kg/m2 Cooper Hardwick Other [employer] Other 05-13-2023 16:00-0400 Body weight 71.67 kg Cooper Hardwick Other [employer] Other 05-13-2023 16:00-0400 Diastolic blood pressure 75 mm[Hg] Cooper Hardwick Other [employer] Other 05-13-2023 16:00-0400 Respiratory rate 18 /min Cooper Hardwick Other [employer] Other 05-13-2023 16:00-0400 SaO2% (BldA) [Mass fraction] 98 % Cooper Hardwick Other [employer] Other 05-13-2023 16:00-0400 Systolic blood pressure 117 mm[Hg] Cooper Hardwick Other [employer] Other 12-30-2022 15:15-0400 Body height 165.1 cm Cooper Hardwick Other [employer] Other 12-30-2022 15:15-0400 Body temperature 98.2 [degF] Cooper Hardwick Other [employer] Other 12-30-2022 15:15-0400 Diastolic blood pressure 82 mm[Hg] Cooper Hardwick Other [employer] Other 12-30-2022 15:15-0400 Respiratory rate 20 /min Cooper Hardwick Other [employer] Other 12-30-2022 15:15-0400 SaO2% (BldA) [Mass fraction] 100 % Cooper Ronen Other [employer] Other 12-30-2022 15:15-0400 Systolic blood pressure 127 mm[Hg] Cooper Louiepiter Other [employer] Other 08-18-2022 09:05-0500 Diastolic blood pressure 59 mm[Hg] MD Mic Bowen Work Phone: [facility] 08-18-2022 09:05-0500 Heart rate 53 /min MD Mic Bowen Work Phone: [facility] 08-18-2022 09:05-0500 Respiratory rate 16 /min MD Mic Bowen Work Phone: [facility] 08-18-2022 09:05-0500 SaO2% (BldA) [Mass fraction] 99 % MD Mic Bowen Work Phone: [facility] 08-18-2022 09:05-0500 Systolic blood pressure 97 mm[Hg] MD Mic Bowen Work Phone: [facility] 08-18-2022 07:34-0500 Body height 165.1 cm MD Mic Bowen Work Phone: [facility] 08-18-2022 07:34-0500 Body temperature 98.3 [degF] MD Mic Bowen Work Phone: [facility] 08-18-2022 07:34-0500 Body weight 72.12 kg MD Mic Bowen Work Phone: [facility] 05-12-2022 16:15-0400 Body height 165.1 cm Cooper Ronen Other [employer] Other 05-12-2022 16:15-0400 Body mass index (BMI) [Ratio] 26.62 kg/m2 Cooper Hardwick Other [employer] Other 05-12-2022 16:15-0400 Body weight 72.58 kg Cooper Hardwick Other [employer] Other 05-12-2022 16:15-0400 Diastolic blood pressure 70 mm[Hg] Cooper Hardwick Other [employer] Other 05-12-2022 16:15-0400 Respiratory rate 18 /min Cooper Hardwick Other [employer] Other 05-12-2022 16:15-0400 SaO2% (BldA) [Mass fraction] 98 % Cooper Hardwick Other [employer] Other 05-12-2022 16:15-0400 Systolic blood pressure 110 mm[Hg] Cooper Hardwick Other [employer] Other Encounters Encounter Date Encounter Type Care Provider Facility Start: 03-24-2024 End: 03-24-2024 ambulatory MIC BOWEN Facility:[facility] Start: 03-01-2024 End: 03-01-2024 ambulatory MIC BOWEN Not Available Start: 02-16-2024 End: 02-16-2024 ambulatory MIC BOWEN Not Available Start: 02-03-2024 End: 02-03-2024 ambulatory MIC BOWEN Not Available Start: 01-26-2024 End: 01-26-2024 ambulatory MIC BOWEN Facility:[facility] Start: 12-23-2023 End: 12-23-2023 ambulatory MIC BOWEN Not Available Start: 12-19-2023 End: 12-19-2023 ambulatory DARLIN Doan Facility:[facility] Start: 11-09-2023 End: 11-09-2023 ambulatory Imad Asaad Facility:[facility] Start: 11-09-2023 End: 11-09-2023 ambulatory MD Mic Bowen Work Phone: [facility] Work Phone: Start: 11-09-2023 End: 11-09-2023 Patient encounter procedure MD Mic Bowen Work Phone: [facility] [place] Work Phone: Start: 11-02-2023 End: 11-02-2023 Patient encounter status Amanda A Visci DO Work Phone: [facility] Start: 11-02-2023 End: 11-02-2023 Periodic preventive med est patient 40-64yrs Amanda A Visci DO Work Phone: [facility] Comment on above: Encounter for gyneco logical examination without abnormal finding; Encounter for screening mammogram for malignant neoplasm of breast; Encounter for screening for cervical cancer Start: 11-02-2023 End: 11-02-2023 ambulatory AMANDA A VISCI Not Available Start: 10-26-2023 Chart abstracting Amanda A Vi sci DO Work Phone: [facility] Start: 10-26-2023 End: 10-26-2023 ambulatory Imad Asaad Facility:[facility] Start: 10-26-2023 End: 10-26-2023 ambulatory MD Mic Bowen Work Phone: [facility] Work Phone: Start: 10-26-2023 End: 10-26-2023 Patient encounter procedure MD Mic Bowen Work Phone: [facility]Nuc Med [facility] [place] Work Phone: Start: 09-07-2023 End: 09-07-2023 ambulatory Imad Asaad Other [employer] [employer] Other Start: 09-07-2023 Telephone encounter Imad Asaad [facility] Start: 08-31-2023 End: 08-31-2023 ambulatory Imad Asaad Facility:[facility] Start: 08-31-2023 End: 08-31-2023 Admission to same day surgery center MD Mic Bowen Work Phone: [facility]-Digestive Health Work Phone: Start: 08-31-2023 End: 08-31-2023 ambulatory MD Mic Bowen Work Phone: [facility] Work Phone: Start: 08-24-2023 End: 08-24-2023 ambulatory MIC BOWEN Not Available Start: 08-10-2023 End: 08-10-2023 ambulatory Imad Asaad Facility:[facility] Start: 08-10-2023 End: 08-10-2023 ambulatory MD Mic Bowen Work Phone: [facility] Work Phone: Start: 08-10-2023 End: 08-10-2023 Patient encounter procedure MD Mic Bowen Work Phone: [facility]Ultrasound [facility] [place] Work Phone: Start: 08-06-2023 End: 08-06-2023 ambulatory MIC BOWEN Facility:[facility] Start: 07-22-2023 End: 07-22-2023 ambulatory Imad Asaad Other [employer] Other Start: 07-22-2023 Telephone encounter Imad Asaad [facility] Start: 07-21-2023 End: 07-21-2023 ambulatory Imad Asaad Other [employer] Other Start: 07-21-2023 Office outpatient ne w 45 minutes Imad Asaad [facility] Start: 05-13-2023 End: 05-13-2023 ambulatory Cooper Hardwick Other [employer] Other Start: 05-13-2023 Patient encounter procedure Cooper Hardwick [facility] Start: 05-13-2023 Periodic preventive med est patient 40-64yrs Cooper Louieshaneqiana [facility] Start: 05-05-2023 End: 05-05-2023 ambulatory MIC BOWEN Facility:[facility] Start: 04-14-2023 End: 04-14-2023 ambulatory MIC BOWEN Facility:[facility] Start: 12-30-2022 End: 12-30-2022 ambulatory Cooper Mengqiana Other [employer] Other Start: 12-30-2022 Office outpatient vi sit 15 minutes Cooper Ronen [facility] Start: 08-18-2022 Telephone encounter Kw[facility] Start: 08-18-2022 End: 08-18-2022 Admission to same day surgery center MD Mic Bowen Work Phone: [facility] Start: 08-18-2022 End: 08-18-2022 ambulatory MD Mic Bowen Work Phone: [facility] Work Phone: Start: 05-12-2022 End: 05-12-2022 ambulatory Cooper Ronen Other [employer] Other Start: 05-12-2022 Patient encounter procedure Cooper Louiepiter [facility] Start: 05-12-2022 Periodic preventive med est patient 40-64yrs Cooper Ronen [facility] Start: 12-02-2021 End: 03-13-[address] [...] Start: 04-13-2017 End: 04-14-2017 Ambulatory MAEVE CARDENAS [facility] Procedures Date Procedure Procedure Detail Performing Clinician Start: 11-09-2023 Computed tomography of abdomen and pelvis with contrast MD Mic Bowen Work Phone: Start: 11-02-2023 THINPREP TIS PAP AND HPV MRNA E6/E7 WITH REFLEX TO HPV 16,18/45 Amanda Bradshawi DO Work Phone: Start: 11-02-2023 Mammography Amanda Visci DO Work Phone: Start: 10-26-2023 Radionuclide gastric emptying study MD Sam Bowen Work Phone: Start: 08-31-2023 Esophagogastroduodenoscopy MD Mic sanchez Work Phone: Start: 08-10-2023 Ultrasonography of abdomen MD Mic sanchez Work Phone: Start: 10-06-2022 Mammography Amanda Visci DO Work Phone: Start: 08-18-2022 Colonoscopy MD Mic Bowen Work Phone: Plan of Treatment Date Care Activity Detail Author Start: 11-07-2024 End: 11-07-2024 Patient encounter procedure 11/07/2024 11:30 AM EST Office Visit [facility] [address] [place] [address] Amanda De Jesus, DO [address] [place] [address] [facility] Start: 11-07-2024 End: 11-07-2024 Professional / ancillary services management 11/07/2024 11:00 AM EST Ancillary Procedure [facility] BREAST [address] [place] [id number] [facility] Start: 11-02-2024 Screening for malign ant neoplasm of breast Mammogram [facility] Start: 02-16-2024 End: 02-16-2024 Patient encounter procedure 02/16/2024 11:30 AM EDT Office Visit [facility] [address] [place] [facility] [address] Mic Bowen MD [address] [place] [facility] [place] [address] [facility] Start: 11-02-2023 End: 11-02-2023 Patient encounter procedure 11/02/2023 2:15 PM EST Office Visit [facility] [address] [place] [id number] Amanda De Jesus, DO [address] [place] [address] [facility] Start: 11-02-2023 End: 12-31-2024 DBT Breast - bilateral screening Bilateral screening mammogram with tomosynthesis Imaging Routine Encounter for screening mammogram for malignant neoplasm of breast Expected: 11/02/2023, Expires: 12/31/2024 [facility] Work Phone: Comment on above: Expected: 11/02/2023 , Expires: 12/31/2024 Start: 11-02-2023 End: 11-02-2023 Professional / ancillary services management 11/02/2023 1:30 PM EST Ancillary Procedure [facility] BREAST [address] [place] [address] [facility] BREAST Start: 10-06-2023 Screening for malign ant neoplasm of breast Mammogram [facility] Start: 08-31-2023 [facility] Start: 05-22-2023 Influenza vaccination Influenza Vacc ine (#1) [facility] Start: 08-18-2022 [facility] Start: 2007 Screening for malign ant neoplasm of cervix [facility] Start: 1998 Screening for malign ant neoplasm of cervix Pap Smear [facility] Start: 1977 Screening for malign ant neoplasm of colon [facility] Patient Education [facility] Work Phone: Immunizations Immunization Date Immunization Notes Care Provider Fa cility 01-07-2021 Moderna SARS-CoV-2 Vaccination Amanda Visci DO Work Phone: [facility] 12-10-2020 Moderna SARS-CoV-2 Vaccination Amanda Visci DO Work Phone: [facility] 09-17-2017 tetanus toxoid, redu paris diphtheria toxoid, and acellular pertussis vaccine, adsorbed Amanda Visci DO Work Phone: [facility] 06-29-2017 seasonal influenza, intradermal, preservative free Amanda Visci DO Work Phone: [facility] 06-29-2017 influenza virus vacc ine, unspecified formulation Amanda Visci DO Work Phone: [facility] Payers Date Payer Category Payer Self-pay [id number] 2023 Unknown FRONTPATH FRONTP ATH [id number] 2023-Present [address] [place] [address] [id number] 1977 Unknown [id number] 2.16.840.1.921552.3.579.2.593 1977 Unknown [id number] 2.16.840.1.019279.3.579.2.593 1977 Unknown [id number] 2.16.840.1.673725.3.579.2.593 1977 Unknown [id number] 2.16.840.1.608038.3.579.2.593 1977 Unknown [id number] 2.16.840.1.638850.3.579.2.593 1977 Unknown [id number] 2.16.840.1.978479.3.579.2.593 1977 Unknown [id number] 2.16.840.1.956500.3.579.2.593 1977 Unknown [id number] 2.16.840.1.420074.3.579.2.593 1977 Unknown [id number] 2.16.840.1.700956.3.579.2.593 1977 Unknown [id number] 2.16.840.1.107010.3.579.2.593 1977 Unknown [id number] 2.16.840.1.971147.3.579.2.593 1977 Unknown [id number] 2.16.840.1.454641.3.579.2.593 1977 Unknown [id number] 2.16.840.1.634828.3.579.2.593 1977 Unknown [id number] 2.16.840.1.015059.3.579.2.593 1977 Unknown [id number] 2.16.840.1.875469.3.579.2.125 9 1977 Unknown [id number] 2.16.840.1.329300.3.579.2.125 9 1977 Unknown [id number] 2.16.840.1.316540.3.579.2.125 9 1977 Unknown [id number] 2.16.840.1.015088.3.579.2.125 9 1977 Unknown [id number] 2.16.840.1.799638.3.579.2.125 9 1977 Unknown [id number] 2.16.840.1.564638.3.579.2.125 9 1977 Unknown [id number] 2.16.840.1.904491.3.579.2.125 9 1977 Unknown [id number] 2.16.840.1.695401.3.579.2.718 1977 Unknown [id number] 2.16.840.1.610371.3.579.2.718 1977 Unknown [id number] 2.16.840.1.819305.3.579.2.718 1977 Unknown [id number] 2.16.840.1.156980.3.579.2.718 1977 Unknown [id number] 2.16.840.1.190447.3.579.2.718 1977 Unknown [id number] 2.16.840.1.444312.3.579.2.718 1959 Self-pay [id number] 1959 Unknown [id number] Unknown [id number] 2.16.840.1.287634.3.579.2.531 Unknown [id number] 2.16.840.1.559734.3.579.2.531 Unknown [id number] 2.16.840.1.923771.3.579.2.531 Unknown [id number] 2.16.840.1.369993.3.579.2.531 Social History Date Type Detail Facility Unknown if ever smoked [employer] Other Start: 08-24-2023 End: 11-02-2023 Sex Assigned At [facility] Start: 08-18-2022 End: 08-31-2023 Tobacco smoking status NHIS Never smoked tobacco (finding) [facility] Start: 1975 Sex Assigned At Female [facility] Start: 03-26-2023 Tobacco use and exposure Smokeless tobacco non-user [facility] Start: 10-26-2023 End: 11-02-2023 Alcohol intake Lifetime non-drinker (finding) [facility] Start: 08-24-2023 End: 11-02-2023 History of Social function [facility] Within the last year , have you been afraid of your partner or ex-partner? No [facility] How often do you att end mormon or zoroastrian services? Patient refused [facility] Do you belong to any clubs or organizations such as mormon groups, unions, fraternal or athletic groups, or [...] Desired Activity /State Clinical Notes 05-12-2022 to 12-21-2023 Amanda De Jesus DO - 11/02/2023 2:15 PM EST Note Date & Type Note Facility 12-21-2023 Note [id number] Patient Education Ma terials Follows: How to Use Eye Drops and Eye Ointments Your health care provider may prescribe or recommend eye drops or ointments to treat dry eye syndrome, allergies, infections, and other eye conditions. Eye drops and ointments may also be used during an eye exam or before or after surgery on your eye. You should use eye drops and ointments only as told by your health care provider. You may need to have a caregiver or family member help you place eye drops or ointment in your eye. What are the risks? ? Burning or itching sensations. ? Tears. ? Redness. ? Allergic reactions. ? Swollen eyelids. ? Blurry vision. ? Infection. How to use eye drops Follow these steps when putting eye drops in your eye: 1. Wash your hands with soap and water for at least 20 seconds. 2. Follow any instructions for mixing or shaking eye drops prior to using them. 3. watch manufacturing supervisor front of a mirror so that you can see your eye well. 4. Place one finger under your eye and use it to gently pull your lower lid downward. This forms a small pocket to place the drop. Keep that finger in place. 5. Using your other hand, hold the dropper between your thumb and index finger. 6. Position the dropper just above the edge of your lower eyelid. Do not touch the dropper to your lid or your eyeball. 7. Steady your hand. One way to do this is to lean your index finger against your brow. 8. Look up slightly. 9. Slowly and gently squeeze the recommended number of drops into your eye near the lower lid. If you are not sure whether you got a drop in your eye, you can safely place another drop. 10. Gently close your eye. Try not to squeeze your eye closed. Doing so can decrease the amount of medicine that stays in your eye 11. Place a finger between your lower eyelid and your nose. Press gently for 1 minute. This increases the amount of time that the medicine is exposed to the eye and can help prevent certain side effects. 12. Do not rub your eye. How to apply eye ointments Follow these steps when applying eye ointments: 1. Wash your hands with soap and water for at least 20 seconds. 2. watch manufacturing supervisor front of a mirror so that you can see your eye well. 3. Place one finger under your eye and use it to gently pull your lower lid downward. Keep that finger in place. 4. Using your other hand, hold the tip of the tube between your thumb and index finger. Brace your other fingers against your cheek or nose. 5. Hold the tube just above the edge of your lower eyelid. Do not touch the tube to your lid or your eyeball. 6. Squeeze the end of the tube to apply a thin layer of the recommended amount of ointment to the inside of your lower lid. 7. Let go of your lower lid. 8. Gently pull up on your upper lid and look down. This will spread the ointment over the surface of your eye. 9. Let go of the upper lid. 10. Gently close your eyes. Do not squeeze your eye closed. Doing so can decrease the amount of medicine that stays in your eye. If you can, leave your eyes closed for 1 minute. 11. Do not rub your eyes. If you applied the ointment correctly, your vision will be blurry for a while. This is normal. Preventing infection ? Before and after using eye drops or ointments, wash your hands with soap and water for at least 20 seconds.. ? Try not to touch the tip of the dropper or tube to your eye. A dropper or tube that has touched the eye can get germs on it (get contaminated). ? Before and after using the drops or ointments, use a clean facial tissue to wipe the dropper or tube or use clean water to wash off the dropper or tube. General tips ? Make sure you use the eye drops or ointment only as told by your health care provider. ? Ask for help from a caregiver or family member if you are unable to apply the eye drops or ointment. ? If you have been told to use both eye drops and an eye ointment, apply the eye drops first, waiting at least 5 minutes between drops and then wait at least 5 minutes before you apply the ointment. ? Keep all follow-up visits. This is important. Contact a health care provider if: ? Your eyes become itchy. ? Your eyelids swell. ? Your eyes hurt. ? Any symptom that the eye drops or ointments were supposed to treat gets worse. ? You have pus or watery mucus coming out of your eye. ? You have new crust on your eyelashes or near your eye. Summary ? Your health care provider may prescribe or recommend eye drops or ointments to relieve symptoms like redness, dryness, and itchiness. ? Be sure to wash your hands with soap and water for at least 20 seconds before applying eye drops or ointment. ? You may need to have a caregiver or family member help you place eye drops or ointment in your eye. ? Use eye drops or ointment only as told by your health care provider. This information is not intended to replace advice given to you by your health care p (more content not included)... [facility] 11-02-2023 History of Present illness Narrative Images from the original note were not included. Amanda De Jesus, Obstetrics and Gynecology Eb Mcguirec 1975 11/03/23 [id number] Yearly Wellness Exam Chief Complaint Patient presents with Gynecologic Exam Yearly .Denies breast, urinary, bowel, and ophthalmic medical assistant problems Visit Vitals BP 118/62 Wt 168 [...] in the morning. Take before meals. thyroid ([place] Thyroid) 60 MG tablet Take 1 tablet [...] Past Medical History: Diagnosis Date Acquired hypothyroidism ([facility]) Conversion disorder ([facility]) Dr. Roldan Villar Gastritis Goiter ([facility]) Dr. Heymeyer History of abnormal cervical Pap smear Hypothyroidism (acquired) ([facility]/HCC) Low serum progesterone Pap smear for [...] Sex Delivery Anes PTL Lv 2 Term 11/16/17 39w4d 8 lb 9 oz F Vag-Spont [...] palpable. BACK: No obvious scoliosis/kyphosis. FEMALE GENITOURINARY: Clinical Transplant Coordinator in room-EFG without sores/lesions, normal vaginal mucosa-no [...] in a year. documented in this encounter [facility] 08-31-2023 Procedure note [facility] 07-21-2023 Evaluation note Encounter Date Diagnosis Assessment Notes Jun, Functional constipation (ICD-10 - K59.04) Jun, Bloating (ICD-10 - R14.0) Jun, Epigastric abdominal pain (ICD-10 - R10.13) [facility] [employer] Other 10-31-2023 History general Narrative - Reported* Type Description Date Medical History Tendonitis Medical History Thyroid conversion issue Medical History tonsil stones Medical History varicose veins Medical History CIC IBS Surgical History varicose vein stripping 023 [employer] Other 08-23-2023 Evaluation note* Encounter Date Diagnosis Assessment Notes Treatment Notes Treatment Clinical Notes Apr, Annual physical exam (ICD-10 - Z00.00) Overall, patient doing well. Continue current care. Up to date on WWE and mammogram (through her automotive electrical fitter, Dr. Pringle). She recently had comprehensive labs done through her specialist, including thyroid levels and Vit D, and agrees to drop them off for my review. Apr, Acquired hypothyroidism (ICD-10 - E03.9) Patient is following with a specialist for management. She will have labs done through her specialist. Her dose was recently reduced -- questionable whether or not her [place] has anything to do with her constipation [...] agree that is reasonable at this time. [facility] Other 04-11-2023 Evaluation note* Encounter Date Diagnosis Assessment Notes Treatment Notes Treatment Clinical Notes Dec, Acute bacterial conjunctivitis of right eye (ICD-10 - H10.31) Will treat as detailed. We did discuss s/s of ocular emergencies -- immedeiately to the nearest ER for any of those s/s. Call with questions/concerns . [employer] Other 11-28-2022 Procedure [facility]08-22-2022 Evaluation note* Encounter Date Diagnosis Assessment Notes Treatment Notes Treatment Clinical Notes Apr, Annual physical exam (ICD-10 - Z00.00) Overall, patient doing well. Continue current care. Up to date on WWE and mammogram (through her automotive electrical fitter, Dr. Pringle). She plans to have comprehensive labs done through her specialist, including thyroid levels and Vit D. Apr, Acquired hypothyroidism (ICD-10 - E03.9) Patient is following with a specialist for management. She will have labs done through her specialist. [employer] Other Evaluation noteNo assessment information available [facility] Work Phone: Evaluhvrdb noteNo InformationNort [employer] Other Evaluation note* Diagnosis Encounter for gynecological examination without abnormal finding Encounter for screening mammogram for malignant neoplasm of breast Encounter for screening for cervical cancer documented [facility] this [facility] Author Kwame Noel [facility] August 18, 2022 8:07am Note Date/Time August 18, 2022 8:07am [facility] [address] [place] [address] Gastroenterology H&P Signed Patient: Eb De La Torre MR#: [id number] : 1975 Acct:[id number] Age/Sex: 47 / F Adm Date: 2 Loc: Room: Type: [facility] Attending Dr: Kwame Noel MD Copies to: [...] By: <Electronically signed by Kwame Noel MD> 08/18/22 0807 [facility] Work Phone: History and physical note Author Debi Mares [facility] August 31, 2023 11:27am Note Date/Time August 31, 2023 11:28am [facility] [address] [place] [address] Gastroenterology H&P Signed Patient: Eb De La Torre MR#: [id number] : 1975 Acct:[id number] Age/Sex: 48 / F Adm Date: 3 Loc: Room: Type: [facility] Attending Dr: Debi Mares MD Copies to: [...] <Electronically signed by Debi Mares MD> 08/31/231126 [facility] Work Phone: History general Narrative - Reported* Type Description Date Medical History Tendonitis Medical History Thyroid conversion issue Medical History tonsil stones [facility] Other Hospital Discharge instructions Additional Instructions DISCHARGE [...] Follow up with PCP. - Office number [phone].[facility] Work Phone: Hospital Discharge instructions Additional Instructions [...] NOT operate machinery such as power tools, [place] mowers, snow blowers, sewing machines, etc. for [...] if you have any problems. -Office number [phone]. [facility] Work Phone: Summary Purpose Family History No [...] Slow transit constip ation (K59.01) Referral Organization [facility] [place] Referring Provider First Name Cooper Referring Provider Last Name Ronen Referring Provider Specialty Family Prac jillian Referred Organization [facility] Gastroenterolo gy Referred Provider Debi Mares Referred Address [address],[place] [address] ,[place], [place],[address] Referred Provider Specialty Gastroentero logy Referral Priority Routine General Notes Beatriz Cid 04:04:06 PM >recieved today, faxed P2P Additional Source Comments INFORMATION SOURCE (unrecogn ized section and content) DATE CREATED AUTHOR 03/17/2018 [facility] DATE CREATED AUTHOR AUTHOR'S ORGANIZ ATION 07/28/2019 [facility] DATE CREATED AUTHOR AUTHOR'S ORGANIZ ATION 03/13/2022 [facility] DATE CREATED AUTHOR AUTHOR'S ORGANIZ ATION 01/27/2023 [facility]ical Specialist DATE CREATED AUTHOR AUTHOR'S ORGANIZ ATION 11/10/2023 [facility] DATE CREATED AUTHOR AUTHOR'S ORGANIZ ATION 03/02/2024 [facility] dical Specialists EPIC DATE CREATED AUTHOR AUTHOR'S ORGANIZ ATION 04/10/2024 [facility] REASON FOR VISIT (unrecogniz ed section and content) Reason Comments Gynecologic Exam Yearly .Denies breas t, urinary, bowel, and ophthalmic medical assistant problems Care Teams (unrecognized sec tion and [...] October 26, 2023 End: October 26, 2023 Dental Laboratory Technician Apprentice Relationship Specialty Start Date End Date Cooper Hardwick MD PCP - General Family Medicine 02/25/23 Dental Laboratory Technician Apprentice Relationship Specialty Start Date End Date Cooper Hardwick MD [address] [place] [address] PCP - General Family Medicine 10/28/23 Team [...] BE BASED ON THE PRIMARY CLINICAL RECORDS. [facility] [employer] provides no warranty or guarantee of the accuracy or completeness of information in this document.
--- NOTE | 2024-05-24 14:30 | VEINCLINIC_ITS ---
Vital Signs 05/24/24 14:32 Height 5 ft 5 in Weight 72.575 kg BMI 26.6 BP 120/62 BP Location Left Brachial BP Position Sitting BP Cuff Size Adult BP Source Manual Cuff Respiration 18 Pulse 86 Comment The patient's blood pressure is elevated. Varicose Veins Patient is in this day for follow up ultrasound and evaluation 6 month post treatment. Patient complains of heaviness when walking with the right being worse than the left. Kyle Tan MD personally performed the services described in this documentation, as scribed by Soha Austin RVT, RDMS in my presence and it is both accurate and complete. Soha Tan RVT, RDMS, am scribing for, and in the presence of, Dr. Kyle Dick and in the presence of the patient. medial knee: bilateral and calf: bilateral 5 1 year Worsened in recent months: Yes standing and walking bed rest, elevating extremities and compression stockings Reports fatigue, heaviness and edema History of lower extremity trauma: No Superficial thrombophlebitis: No Family history of varicose veins: yes (Mother) Has patient had previous lower extremity venous surgery: Yes Patient has previously received the following treatment(s) for lower extremity varicose veins: Reports vein ablation, sclerotherapy and foam therapy Does patient have a history of : yes Does patient intend to have future pregnancies: no Has patient had lower extremity venous scan with relux testing: Yes Support hose used: Yes Problems walking or doing physical activity: No How does it affect you: Heaviness bothers patient after walking for long periods Do you walk much: Yes Do you stand much: Yes Review of Systems ROS Narrative Kyle Tan MD personally performed the services described in this documentation, as scribed by Soha Austin RVT, RDMS in my presence and it is both accurate and complete. Soha Tan RVT, RDMS, am scribing for, and in the presence of, Dr. Kyle Dick and in the presence of the patient. Status of ROS 10 or more systems reviewed and unremark able except as noted in history and below Cardiovascular Reports: edema PFSH PFS Medical History (Updated 05/24/24 @ 14:38 by Soha Austin) Phlebitis and thrombophlebitis of superficial vessels of lower extremities, bilateral ?I80.03 - Phlebitis and thrombophlebitis of superficial vessels of lower extremities, bilateral (ICD-10) Pain due to varicose veins of both lower extremities ?I83.813 - Varicose veins of bilateral lower extremities with pain (ICD-10) Hypothyroidism ?E03.9 - Hypothyroidism, unspecified (ICD-10) Surgical History (Updated 05/24/24 @ 14:39 by Soha Austin) Status post ablation of incompetent vein using laser ?Z98.890 - Other specified postprocedural states (ICD-10) History of dilation and curettage ?Z98.890 - Other specified postprocedural states (ICD-10) Status post sclerotherapy of varicose veins ?Z98.890 - Other specified postprocedural states (ICD-10) ?Z86.79 - Personal history of other diseases of the circulatory system (ICD- 10) Family History (Updated 05/24/24 @ 14:40 by Soha Austin) Grandmother Family history of CHF (congestive heart failure) Family history of cancer Social History (Updated 05/24/24 @ 14:41 by Soha Austin) Within the past year, how often did you have a drink containing alcohol: never Score interpretation: A score less than 3 is consistent with normal alcohol consumption. Smoking status: Never smoker Non-prescribed substance use: denies use Meds Home Medications and Allergies Home Medications ?Medication ?Instructions ?Recorded ?Confirmed ?Type thyroid (pork) 90 mg tablet 90 mg PO DAILY 05/24/24 05/24/24 History (Adthyza) Allergies Allergy/AdvReac Type Severity Reaction Status Date / Time No Known Drug Allergies Allergy Unverified 05/24/24 14:42 Exam Narrative Exam Narrative: IKyle MD personally performed the services described in this documentation, as scribed by Soha Austin RVT, RDMS in my presence and it is both accurate and complete. ISoha RVT, RDMS, am scribing for, and in the presence of, Dr. Kyle Dick and in the presence of the patient. Constitutional Documenting provider has reviewed patient's vital signs: yes Common normals: oriented x3 Lymph Lymphatic: no lymphedema noted Cardio Common normals: regular rate Rate: regular rate Peripheral pulses: posterior tibial pulses present and dorsalis pedis pulses present Extremity Common normals: normal capillary refill Neuro Common normals: oriented x3 Results Imaging Venous US: Radiologist's impression: The ultrasound demonstrates bilateral legs negative for DVT with no patent varicose veins visualized. Assessment and Plan Assessment and Plan (1) Phlebitis and thrombophlebitis of superficial vessels of lower extremities, bilateral: (2) Pain due to varicose veins of both lower extremities: Plan The plan is for the patient to follow up in the future as needed.
[2024-05-24 14:32] VITALS: BP 120/62; PULSE 86; BMI 26.6
--- NOTE | 2024-05-24 14:44 | P.DS_ITS ---
Discharge Plan Discharge Disposition: Home, Self-Care Discharge Medications: No Action thyroid (pork) [Adthyza] 90 mg tablet 90 mg PO DAILY Plan of Treatment: The patient is to follow up in the future as needed. Print Language: Danish Discharge Date/Time: 05/24/24 14:44
== END 2024-05-24 14:44 | disposition home or self-care (01) ==
LOC: VC 10:55
PROVIDERS: PCP Radiology Diagnostic Radiology; Visit Provider Radiology Diagnostic Radiology
DX: I80.03 Phlebitis and thrombophlebitis of superficial vessels of lower extremities, bilateral (principal)
CPT/HCPCS: 93970; G0463